=== PATIENT | female | born 1955 | race Caucasian/White ===

== ENCOUNTER 2016-12-04 17:28 | Inpatient (IN) | END 2016-12-21 18:18 | DRG 377 | DX: K62.5 Hemorrhage of anus and rectum (principal); N18.6 End stage renal disease; E13.621 Other specified diabetes mellitus with foot ulcer; I12.0 Hypertensive chronic kidney disease with stage 5 chronic kidney disease or end stage renal disease; D69.6 Thrombocytopenia, unspecified; M86.8X7 Other osteomyelitis, ankle and foot; D64.89 Other specified anemias; K31.84 Gastroparesis; E11.43 Type 2 diabetes mellitus with diabetic autonomic (poly)neuropathy; L97.519 Non-pressure chronic ulcer of other part of right foot with unspecified severity; Z99.2 Dependence on renal dialysis; I25.10 Atherosclerotic heart disease of native coronary artery without angina pectoris; Z66 Do not resuscitate; E78.5 Hyperlipidemia, unspecified; E11.621 Type 2 diabetes mellitus with foot ulcer; K57.30 Diverticulosis of large intestine without perforation or abscess without bleeding; K64.8 Other hemorrhoids; K29.00 Acute gastritis without bleeding; B96.89 Other specified bacterial agents as the cause of diseases classified elsewhere; Z16.21 Resistance to vancomycin; B37.2 Candidiasis of skin and nail; Z95.5 Presence of coronary angioplasty implant and graft; E11.610 Type 2 diabetes mellitus with diabetic neuropathic arthropathy; E11.69 Type 2 diabetes mellitus with other specified complication ==

== ENCOUNTER 2016-12-29 23:21 | Emergency (ER) | END 2016-12-30 05:20 | disposition home or self-care (01) | DX: S09.90XA Unspecified injury of head, initial encounter (principal); R51 Headache; I12.0 Hypertensive chronic kidney disease with stage 5 chronic kidney disease or end stage renal disease; N18.6 End stage renal disease; I25.10 Atherosclerotic heart disease of native coronary artery without angina pectoris; E11.9 Type 2 diabetes mellitus without complications; W18.30XA Fall on same level, unspecified, initial encounter; Y92.9 Unspecified place or not applicable; Z99.2 Dependence on renal dialysis ==

== ENCOUNTER 2017-02-12 09:32 | Day surgery (SDC) | END 2017-02-12 16:54 | disposition home or self-care (01) | DX: T82.898A Other specified complication of vascular prosthetic devices, implants and grafts, initial encounter (principal); Y84.1 Kidney dialysis as the cause of abnormal reaction of the patient, or of later complication, without mention of misadventure at the time of the procedure; Y92.89 Other specified places as the place of occurrence of the external cause | CPT/HCPCS: 36901; 71010; 80048; 82962; 85025; 85610; 85730; J1644; Q9967 ==

== ENCOUNTER 2017-08-25 11:01 | Inpatient (IN) | END 2017-09-02 18:05 | disposition home or self-care (01) | DRG 981 | DX: E87.5 Hyperkalemia (principal); N18.6 End stage renal disease; E11.22 Type 2 diabetes mellitus with diabetic chronic kidney disease; I12.0 Hypertensive chronic kidney disease with stage 5 chronic kidney disease or end stage renal disease; N17.9 Acute kidney failure, unspecified; I48.0 Paroxysmal atrial fibrillation; E11.42 Type 2 diabetes mellitus with diabetic polyneuropathy; E11.621 Type 2 diabetes mellitus with foot ulcer; E11.610 Type 2 diabetes mellitus with diabetic neuropathic arthropathy; E87.70 Fluid overload, unspecified; L85.1 Acquired keratosis [keratoderma] palmaris et plantaris; E78.5 Hyperlipidemia, unspecified; Z99.2 Dependence on renal dialysis; Z91.15 Patient's noncompliance with renal dialysis; Z79.4 Long term (current) use of insulin; Z79.84 Long term (current) use of oral hypoglycemic drugs ==

== ENCOUNTER 2017-10-06 10:05 | Day surgery (SDC) | END 2017-10-06 18:20 | disposition home or self-care (01) | DX: T82.590A Other mechanical complication of surgically created arteriovenous fistula, initial encounter (principal); N18.6 End stage renal disease; Z53.8 Procedure and treatment not carried out for other reasons ==

== ENCOUNTER 2017-10-13 09:44 | Day surgery (SDC) | payer MEDICARE, OTHER ==
[~2017-10-13] VITALS: Ht 162.6 cm; Wt 83.3 kg
[2017-10-13] VITALS (19 sets, daily range): BP systolic 131–155; BP diastolic 57–78; PULSE 72–80; RESP 10–23; Ht 162.6 cm; Wt 83.3 kg
[~2017-10-13 09:44] MED LIST: AMLO-147 PO; CINA60TA PO; DOCU-216 PO; FOLI-49 PO; FURO20TA3 PO; GABA100C14 PO; LORA0.5T PO; NEPH PO; PANT40TA3 PO; SUCR1TAB56 PO; ZOLP10TA5 PO
[2017-10-13 11:03] LABS: BASOPHIL # 0.1 10^3/ul (0.0-0.1); BASOPHILS % 1.1 % (0.0-2.0); EOSINOPHILS # 0.3 10^3/ul (0.0-0.5); EOSINOPHILS % 4.9 % (0.0-7.0); HEMATOCRIT 38.1 % (37.0-47.0); HEMOGLOBIN 12.3 g/dl (12.0-16.0); LYMPHOCYTES % 14.1 % (15.0-51.0); MEAN CORPUSCULAR HGB CONC 32.3 g/dl (32.0-37.0); MEAN CORPUSCULAR VOLUME 92.9 fl (82.0-101.0); MEAN PLATELET VOLUME 10.4 fl (7.4-10.4); MONOCYTE # 0.6 10^3/ul (0.3-0.9); MONOCYTES % 7.9 % (0.0-11.0); NEUTROPHILS % 71.6 % (39.0-77.0); PLATELET COUNT 197 10^3/UL (140-415); RED CELL DISTRIBUTION WIDTH 13.3 % (11.5-14.5)
[2017-10-13 11:26] LABS: INR 1.12; PROTIME 14.4 Sec (12.2-14.2); PT RATIO 1.1
[2017-10-13 11:30] LABS: ALBUMIN 4.1 g/dl (3.3-4.9); BILIRUBIN,INDIRECT 0.1 mg/dl (0-1.1); BILIRUBIN,TOTAL 0.1 mg/dl (0.2-1.3); TOTAL PROTEIN 8.2 g/dl (6.1-8.1)
[2017-10-13 11:36] LABS: CALCIUM 8.7 mg/dl (8.4-10.2); PARTIAL THROMBOPLASTIN TIME 35.4 Sec (25.0-35.0); POTASSIUM 4.9 mmol/L (3.5-5.1)
[2017-10-13 11:38] LABS: CREATININE 7.67 mg/dl (0.44-1.00)
[2017-10-13] MEDS ORDERED: FENTAnyl 50 MCG/ML VIAL ONE (14:27)
[2017-10-13] MEDS ORDERED: MIDAZOLAM 1 MG/ML 2 ML INJ ONE ×2 (14:27→15:06)
[2017-10-13] MEDS ORDERED: LIDOCAINE 1% (MDV) 20 ML INJ ONE ×2 (15:05→16:05)
[2017-10-13] MEDS ORDERED: IODIXANOL LOCM 100 ML BTL ONE ×2 (15:05→16:05)
--- NOTE | 2017-10-13 16:31 | HPN ---
Date/Time of Note Date/Time of Note DATE: 10/13/17 TIME: 16:31 Interval H&P Admission Note Pt. seen H&P reviewed: No system changes KOLBY BOUCHER MD Oct 13, 2017 16:31
--- NOTE | 2017-10-13 16:31 | CONS ---
Date/Time of Note Date/Time of Note DATE: 10/13/17 TIME: 16:26 Assessment/Plan Assessment/Plan Chief Complaint/Hosp Course vascular surgery H&P HISTORY OF PRESENT ILLNESS: The patient is a known patient to our vascular surgery service secondary to plethora of medical conditions and end-stage renal disease, in which she had underwent a left upper extremity fistula revision that she has had for some time now. As of recent, patient had mentioned that she has been experiencing left forearm pain and discomfort after dialysis. It has been developing recently. Otherwise, she has had this chronic left foot plantar diabetic foot ulcer and managed with local wound care with our podiatry colleagues. T At the moment, she denies shortness of breath, chest pain, nausea, vomiting, fever, or chills. She has been tolerating her dialysis sessions fine so far. REVIEW OF SYSTEMS: Fourteen point review performed and negative except was mentioned in HPI. PAST MEDICAL HISTORY: End-stage renal disease, anemia of chronic disease, diabetes, hypertension, hypercholesterolemia, diabetic gastroparesis, diabetic neuropathy, Charcot foot, bilateral lower extremity atherosclerosis, coronary artery disease, and dementia. PAST SURGICAL HISTORY: Appendectomy, cholecystectomy, bilateral lower extremity debridements and amputations, carpal tunnel surgery, left upper extremity fistula creation, and previous fistulograms. FAMILY HISTORY: Hypertension and diabetes. SOCIAL HISTORY: Denies tobacco, alcohol, or illicit drug use. PHYSICAL EXAMINATION: Alert and oriented times 3. No apparent distress. HEENT: Normocephalic, atraumatic. EOMI. PERRLA. Mucosa moist. NECK: Supple. No carotid bruit. LUNGS: Coarse breath sounds bilaterally, some crackles at the bases. HEART: S1, S2 present. No murmurs. ABDOMEN: Soft, nontender, nondistended. Bowel sounds positive. EXTREMITIES: Right lower extremity with palpable femoral pulse, nonpalpable pedal pulse. Motor sensory intact. Capillary refill 3 seconds. Left lower extremity with palpable femoral pulse, nonpalpable pedal pulse. Motor sensory intact. Capillary refill 3 to 4 seconds. Plantar ulcer with no drainage, some granulation tissue and minimal surrounding erythema. LUE: palpable brachial pulse, motor/sensory intact although weak handgrip 4/5, dry ulcer on thumb. cap refill 3-4 seconds, fistula with bruit and thrill present although weak IMPRESSION AND PLAN: End-stage renal disease: The patient has been developing some new symptoms of possible steal as she has been having some arm pain during her dialysis sessions. We will plan to obtain a LUE fistulogram for possible subclavian artery stenosis, and thoracic arch angiogram Optimize vascular status (blood pressure meds, diet, nutrition, exercise, sugar control, antiplatelets). Bilateral lower extremity atherosclerosis with left diabetic foot ulcer: The patient has been coming along well with her diabetic foot wound care. Will continue per recommendations of our podiatry colleagues. Will plan to obtain a new lower extremity arterial study to further evaluate her surveillance from that aspect as well. No further management for now. Optimize vascular status (blood pressure meds, nutrition, exercise, sugar control sugar control, antiplatelets). Discussed findings, plan, and management with the patient. She understands with the certified nuclear plant technical advisor. Thank you for allowing us to partake in the care of your patient. Please call with any questions. Problems: Consultation Date/Type/Reason Admit Date/Time Past Surgical History Past Surgical Hx: angioplasty, appendectomy, cholecystectomy, endoscopy Social History Smoking Status: Never smoker Exam/Review of Systems Vital Signs Vitals Vital Signs Date Time Temp Pulse Resp B/P Pulse Ox O2 Delivery O2 Flow Rate FiO2 10/13/17 11:08 98.1 78 18 131/60 98 Room Air Results Result Diagram: 10/13/17 1025 10/13/17 1025 Results 24 hrs Laboratory Tests Test 10/13/17 10:24 10/13/17 10:25 Bedside Glucose 176 White Blood Count 7.0 Red Blood Count 4.10 L Hemoglobin 12.3 Hematocrit 38.1 Mean Corpuscular Volume 92.9 Mean Corpuscular Hemoglobin 30.0 Mean Corpuscular Hemoglobin Concent 32.3 Red Cell Distribution Width 13.3 Platelet Count 197 Mean Platelet Volume 10.4 Neutrophils % 71.6 Lymphocytes % 14.1 L Monocytes % 7.9 Eosinophils % 4.9 Basophils % 1.1 Nucleated Red Blood Cells % 0.0 Neutrophils # 5.0 Lymphocytes # 1.0 Monocytes # 0.6 Eosinophils # 0.3 Basophils # 0.1 Nucleated Red Blood Cells # 0.0 Prothrombin Time 14.4 H Prothrombin Time Ratio 1.1 INR International Normalized Ratio 1.12 Activated Partial Thromboplast Time 35.4 H Sodium Level 142 Potassium Level 4.9 Chloride Level 97 Carbon Dioxide Level 27 Anion Gap 23 H Blood Urea Nitrogen 66 H Creatinine 7.67 H Glucose Level 196 Calcium Level 8.7 Total Bilirubin 0.1 L Direct Bilirubin 0.00 Indirect Bilirubin 0.1 Aspartate Amino Transf (AST/SGOT) 18 Alanine Aminotransferase (ALT/SGPT) 23 Alkaline Phosphatase 733 H Total Protein 8.2 H Albumin 4.1 Globulin 4.10 H Albumin/Globulin Ratio 1.00 KOLBY BOUCHER MD Oct 13, 2017 16:31
--- NOTE | 2017-10-13 16:34 | SIPON ---
Date/Time of Note Date/Time of Note DATE: 10/13/17 TIME: 16:31 Operative Report Preoperative Diagnosis ESRD, LUE ULCER Postoperative Diagnosis LEFT SUBCLAVIAN STENOSIS Operation/Procedure Performed THORACIC ARCH ANGIOGRAM, LEFT SUBCLAVIAN ARTERY ANGIOPLASTY LUE FISTULOGRAM LEFT UPPER EXTREMITY ANGIOGRAM Surgeon see signature line carpenter assistant NONE Anesthesia: moderate sedation Estimated blood loss: minimal Transfusion Required none Specimen NONE Grafts/Implants none Complications none KOLBY BOUCHER MD Oct 13, 2017 16:34
[2017-10-13] MEDS ORDERED: ONDANSETRON 4 MG INJ IV PRN (17:00)
--- NOTE | 2017-10-13 20:22 | OPR ---
DATE OF OPERATION: 10/13/2017 SURGEON: Loi Anderson MD PREOPERATIVE DIAGNOSIS: Left upper extremity ulcers. POSTOPERATIVE DIAGNOSIS: Subclavian artery stenosis. ANESTHESIA: Local with sedation. ESTIMATED BLOOD LOSS: Minimal. COMPLICATIONS: None. HEPARIN: As recorded. CONTRAST: As recorded. ACCESS: Right common femoral artery 5-Angolan sheath. Left upper extremity fistula 6-Angolan sheath. CLOSURE: Manual compression and 3-0 nylon for the left upper extremity fistula, and Angio-Seal clos ure device for the right common femoral artery. SEDATION: Under physician supervision, moderate sedation was administered intravenously under poonam nuous monitoring by the interventional team and attending physician. Pulse oximeter, heart rate, bl ood pressures were continuously monitored by the interventional surgeon. The physician's spent time was 45 minutes of [id number] sedation time with the patient. INDICATIONS: This is a 62-year-old female known to our vascular surgery service with a history of e nd-stage renal disease who has had a history of previous left upper extremity arm pain which identif ied the patient as having left subclavian artery stenosis. At that time, the patient underwent left subclavian artery stenting and now has recurrence of her left upper extremity pain and discomfort, especially during dialysis, and new small ulcers have developed on her thumb and her index finger. Upon evaluation with a duplex of the left upper extremity fistula, it was identified the patient may have some subclavian artery stenosis. Therefore, the risks, benefits and alternatives were discuss ed with the patient, risks including, but not limited to, bleeding, thrombosis, embolization, myocar dial infarction, , stroke, device malfunction, infection, nephrotoxicity, and the patient has a greed to proceed. The procedures discussed with the patient were angiogram, balloon angioplasty, st enting, and the patient has agreed to proceed. PROCEDURES: 1. Ultrasound-guided access of the left upper extremity fistula. 2. Ultrasound-guided access of the right common femoral artery. 3. Introduction of catheter into the aorta. 4. Thoracic arch angiogram. 5. Second order selection of the left brachial artery via fistula and third order selection of the descending thoracic aorta via the left subclavian artery. 6. Left upper extremity fistulogram. 7. Left upper extremity arterial angiography. 8. Left subclavian artery balloon angioplasty using a 7 mm x 40 mm balloon. FINDINGS: 1. Patent thoracic aorta ascending and descending. Significant calcification at the orifice of the left subclavian artery. 2. Bovine arch with the left common carotid and the right brachiocephalic artery coming off the yvette e branch. There is a tortuous route of the right subclavian artery and it is patent. 3. Right common carotid artery is patent. 4. Right brachiocephalic artery is patent. 5. Left common carotid artery is patent with moderate calcification at its orifice. 6. Left vertebral artery is not well visualized. 7. Right vertebral artery is not well visualized. 8. Left subclavian artery with moderate disease in its proximal aspect until it comes to the axilla ry artery. The axillary artery is patent and calcified. 9. Left brachial artery is patent and calcified. 10. Patent fistula. 11. Patent axillary vein, patent subclavian vein, patent left brachiocephalic vein, patent cephalic arch. 12. Some mild stenosis at the anastomotic site. 13. Aneurysmal fistula of the cephalic vein. 14. Patent radial artery. 15. Patent ulnar artery with some calcification. 16. Patent interosseous artery. DESCRIPTION OF PROCEDURE: The patient was brought into the angio suite and positioned in supine pos ition on the fluoroscopic table. Sedation was administered without any complications. The right gr oin was then shaved, prepped and draped in the usual standard sterile fashion. The left upper extre mity was also shaved, prepped and draped in the usual standard sterile fashion. Timeout and appropr iate sites were marked and confirmed. Local anesthesia was then infiltrated in the region of the [facility] common femoral artery. The artery was then cannulated with a micro access needle under ultrasou nd guidance, and a guidewire was advanced into the iliac artery under fluoroscopic guidance. The ne edle was then removed, and a microcatheter was placed. A Bentson wire was then passed into the infr arenal aorta under fluoroscopic guidance, followed by a 5-Angolan sheath over the wire. The sheath w as then appropriately flushed with heparinized saline solution. Using a pigtail catheter, it was th en passed into the thoracic arch and a thoracic arch angiogram was then performed. Findings are not ed above. It was identified the patient has calcification and in-stent restenosis of the left subcl sarthak artery. At this point, it was decided to cannulate the left subclavian artery in a second ord er selection. The patient was given intravenous heparin. Once adequate time had passed, we went ah ead and used a Berenstein catheter with our Bentson wire to cannulate the left subclavian artery. T he left subclavian artery was cannulated; however, the Bentson wire would not pass across the area o f significant stenosis. At this point, we tried a Glidewire and, unfortunately, it seemed that it w as a very difficult selection as it extended a bit into the aortic arch, and the decision was made t o perform a retrograde access via the left upper extremity fistula. Therefore, the pigtail catheter was removed, and access via the left upper extremity fistula was obtained. Using a micro access ne edle under ultrasound guidance, the fistula was cannulated with a micropuncture needle. The guidewi re was then advanced into the left brachial artery under fluoroscopic guidance. The needle was then removed, and a microcatheter was then placed. The Bentson wire was then passed into the left axill jennifer artery under fluoroscopic guidance, followed by a short 6-Angolan sheath over the wire. The kumar th was then appropriately flushed with heparinized saline solution. Using a Berenstein catheter, th e left subclavian artery was cannulated. At this point, with careful attention, the patient was giv en additional doses of heparin intravenously and attempts were made to select the descending thoraci c aorta. We went ahead and changed our Bentson guiding catheter to a Tillson guiding catheter and usi ng a Glidewire, we were able to cannulate, upon visualization of multiple oblique views, the descend ing thoracic aorta. Once that was obtained, we went ahead and changed our wire to a stiff Bentson w mariia, and the decision was made to perform a balloon angioplasty of the in-stent stenosis. Using a B Orthos 7 mm x 40 mm balloon, angioplasty of the left subclavian artery was performed. The patient tolerated this aspect well, and no signs of neurovascular changes were identified. Upon am ple time with our angioplasty, the balloon was taken down and removed. A thoracic arch angiogram wa s performed which identified a faster flow via the left subclavian artery and no residual stenosis. Upon completion of the angiogram, angiogram of the left upper extremity was also performed to evalu ate for further stenosis or occlusions. Findings are noted above. The patient had adequate flow fr om the left subclavian artery all the way down to the mid forearm. At this point, the patient repor ts feeling improved left upper extremity pain and feels warmer than before. The decision was made a t this point to remove all catheters and wires and to conclude the procedure. Using a 3-0 nylon sut ure, the puncture site via the left upper extremity fistula access site was closed. All catheters a nd wires were removed prior to that. At this point, using a [employer] wire, the right common femoral artery sheath was accessed and then re moved. Angio-Seal closure device was used to deploy in the right common femoral artery. The patien t tolerated the procedure well and was taken to the postanesthesia care unit in stable condition. PLAN: We will plan to have the patient follow up with us in about 2 weeks' time, at which time we w ill plan to obtain a new duplex to evaluate her left subclavian stenosis that she has had before and to evaluate her symptoms of her left upper extremity. Dictated By: LOI NOLASCO/ABHIJIT Conf#: [id number] DID#: [id number]
== END 2017-10-13 21:00 | disposition home or self-care (01) ==
LOC: SDS 09:44
PROVIDERS: ATTEND Student in an Organized Health Care Education/Training Program
DX: I77.1 Stricture of artery (principal); N18.6 End stage renal disease; E11.22 Type 2 diabetes mellitus with diabetic chronic kidney disease; I10 Essential (primary) hypertension
CPT/HCPCS: 36901; 36907; 80053; 82962; 85025; 85610; 85730; C1725; C1769; C1887; C1894; J1644; J2250; J3010; Q9967

== ENCOUNTER 2017-10-23 13:18 | Emergency (ER) | payer MEDICARE, OTHER ==
[~2017-10-23] VITALS: Ht 165.1 cm; Wt 81.2 kg
[2017-10-23 13:23] VITALS: Ht 165.1 cm; Wt 81.2 kg
--- NOTE | 2017-10-23 13:41 | ERD ---
ER Documentation Chief Complaint Chief Complaint LUE pain x 1 week after surgery, denies fever HPI The patient is a 62-year-old female, presenting to the ER because of left upper extremity intermittent pain for 1 week. She had a lesion of the left upper extremity AV fistula last week. She has chronic ulcers on the left hand for many months, denies any trauma, fever, chills, neck pain, chest pain, abdominal pain, vomiting. She had dialysis this morning. X Past medical history: Hypertension, chronic kidney disease on hemodialysis, diabetes mellitus, hypertension, diabetic neuropathy Surgical history: Appendectomy ROS All systems reviewed and are negative except as per history of present illness. Medications Home Meds Active Scripts Hydrocodone/Acetaminophen ([place] 5-325 Tablet) 1 Each Tablet, 1 TAB PO Q6H Y for PAIN, #7 TAB Prov:FELIX FAROOQ MD 10/23/17 Bacitracin* (Bacitracin Oint (UD)*) 1 Applic Oint, 1 APPLIC TOP BID, #30 PKT APPLY TO Prov:FELIX FAROOQ MD 10/23/17 Clindamycin Hcl* (Clindamycin Hcl*) 300 Mg Capsule, 300 MG PO QID for 10 Days, CAP Prov:FELIX FAROOQ MD 10/23/17 Docusate Sodium (Dok) 100 Mg Capsule, 100 MG PO Q12H Y for CONSTIPATION for 30 Days, CAP Prov:DAI LEONARD 09/02/17 Reported Medications Zolpidem Tartrate* (Zolpidem Tartrate*) 10 Mg Tablet, 10 MG PO QHS Y for INSOMNIA, #30 TAB 10/06/17 Folic Acid* (Folic Acid*) 1 Mg Tablet, 1 MG PO DAILY, TAB 10/06/17 Amlodipine Besylate* (Amlodipine Besylate*) 10 Mg Tablet, 10 MG PO DAILY, #30 TAB 10/06/17 Cinacalcet* (Sensipar*) 60 Mg Tablet, 60 MG PO DAILY, TAB 10/06/17 Gabapentin* (Gabapentin*) 100 Mg Capsule, 100 MG PO TID, #90 CAP 10/06/17 Lorazepam* (Lorazepam*) 0.5 Mg Tablet, 0.5 MG PO BID Y for ANXIETY, TAB 10/06/17 Multivit/Ca Carb/B Cmplx/Fa* (Suzie-Paula*) 1 Tab Tab, 1 TAB PO DAILY, TAB 10/06/17 Sucralfate* (Carafate*) 1 Gm Tab, 1 GM PO QID, TAB 10/06/17 Furosemide* (Furosemide*) 20 Mg Tablet, 20 MG PO DAILY, #60 TAB 02/12/17 Pantoprazole* (Protonix*) 40 Mg Tablet.dr, 40 MG PO DAILY, TAB 12/04/16 Allergies Allergies: Coded Allergies: amoxicillin (Verified Allergy, Unknown, rash, swelling, 10/13/17) citalopram (Verified Allergy, Unknown, RASH, SKIN REDNESS, 10/13/17) PMhx/Soc History of Surgery: Yes (APPENDECTOMY, CTR R HAND, KIDNEY STONE, R FOOT I AND D , R BIG TOE AMPUTATIO) Anesthesia Reaction: No Hx Neurological Disorder: No Hx Respiratory Disorders: No Hx Cardiac Disorders: Yes (HTN,HLP) Hx Psychiatric Problems: No Hx Miscellaneous Medical Probl: Yes (RIGHT FOOT ULCER (PICS IN THE CHART)) Hx Alcohol Use: No Hx Substance Use: No Hx Tobacco Use: No Physical Exam Vitals Vital Signs Date Time Temp Pulse Resp B/P Pulse Ox O2 Delivery O2 Flow Rate FiO2 10/23/17 17:10 73 20 161/62 100 Room Air 10/23/17 14:54 97.4 68 16 118/56 99 Room Air 10/23/17 13:23 98.7 77 19 124/56 98 Physical Exam Const: No acute distress. Head: Atraumatic. Eyes: Normal Conjunctiva. ENT: Normal External Ears, Nose and Mouth. Neck: Full range of motion. No meningismus. Resp: Clear to auscultation bilaterally. Cardio: Regular rate and rhythm. Abd: Soft, non distended, normal bowel sounds, non tender. Skin: No petechiae or rashes. Back: No midline or flank tenderness. Ext: There are chronic ulceration at the left wrist and second finger , thumb, and ring finger. There are no active bleeding Neur: Awake and alert. No focal deficit Psych: Normal Mood and Affect. Result Diagram: 10/23/17 1431 10/23/17 1431 Results 24 hrs Laboratory Tests Test 10/23/17 14:31 White Blood Count 6.610^3/ul Red Blood Count 3.6410^6/ul Hemoglobin 11.1g/dl Hematocrit 34.1% Mean Corpuscular Volume 93.7fl Mean Corpuscular Hemoglobin 30.5pg Mean Corpuscular Hemoglobin Concent 32.6g/dl Red Cell Distribution Width 13.4% Platelet Count 53764^3/UL Mean Platelet Volume 10.0fl Neutrophils % 69.2% Lymphocytes % 14.6% Monocytes % 9.5% Eosinophils % 5.0% Basophils % 1.2% Nucleated Red Blood Cells % 0.0/100WBC Neutrophils # 4.510^3/ul Lymphocytes # 1.010^3/ul Monocytes # 0.610^3/ul Eosinophils # 0.310^3/ul Basophils # 0.110^3/ul Nucleated Red Blood Cells # 0.010^3/ul Prothrombin Time 13.6Sec Prothrombin Time Ratio 1.1 INR International Normalized Ratio 1.04 Activated Partial Thromboplast Time 30.4Sec Sodium Level 136mmol/L Potassium Level 4.3mmol/L Chloride Level 95mmol/L Carbon Dioxide Level 25mmol/L Anion Gap 20 Blood Urea Nitrogen 29mg/dl Creatinine 4.70mg/dl Glucose Level 224mg/dl Calcium Level 9.2mg/dl Current Medications Medications (Trade) Dose Ordered Sig/Caitlyn Route PRN Reason Start Time Stop Time Status Last Admin Dose Admin Acetaminophen/ Hydrocodone Bitart ([place] (5/325)) 1 tab ONCE ONCE PO 10/23/17 14:30 10/23/17 14:31 DC 10/23/17 14:41 Ondansetron HCl (Zofran Odt) 4 mg ONCE STAT ODT 10/23/17 14:04 10/23/17 14:09 DC 10/23/17 14:41 Procedures/[facility] MEDICAL MAKING DECISION: The patient is a 72-year-old female, presenting with chronic left hand ulceration, is stable for outpatient follow-up. She was treated with [place] 5 mg p.o. for pain and Zofran ODT for nausea with good response. The differential diagnoses considered include but are not limited to cellulitis , abscess, DVT, lymophedema Departure Diagnosis: Primary Impression: Skin ulcer Additional Impression: Anemia Condition: Good Comments She was discharged with clindamycin, [place] I discussed the findings with the patient. I advised the patient to follow-up with the primary physician in about 1-2 days, sooner if needed and return if any concern. Disclaimer: Inadvertent spelling and grammatical errors are likely due to EHR/ dictation software use and do not reflect on the overall quality of patient care. Also, please note that the electronic time recorded on this note does not necessarily reflect the actual time of the patient encounter. FELIX FAROOQ MD Oct 23, 2017 13:41
[2017-10-23] MEDS ORDERED: ONDANSETRON (ODT) 4 MG TAB ODT STA (14:04)
[2017-10-23] MEDS ORDERED: HYDROCODONE/APAP (5/325) TAB PO ONE (14:30)
[2017-10-23 14:36] LABS: BASOPHIL # 0.1 10^3/ul (0.0-0.1); BASOPHILS % 1.2 % (0.0-2.0); EOSINOPHILS # 0.3 10^3/ul (0.0-0.5); HEMATOCRIT 34.1 % (37.0-47.0); HEMOGLOBIN 11.1 g/dl (12.0-16.0); LYMPHOCYTES % 14.6 % (15.0-51.0); MEAN CORPUSCULAR HEMOGLOBIN 30.5 pg (29.0-33.0); MEAN CORPUSCULAR HGB CONC 32.6 g/dl (32.0-37.0); MEAN CORPUSCULAR VOLUME 93.7 fl (82.0-101.0); MONOCYTE # 0.6 10^3/ul (0.3-0.9); MONOCYTES % 9.5 % (0.0-11.0); NEUTROPHIL # 4.5 10^3/ul (1.6-7.5); NEUTROPHILS % 69.2 % (39.0-77.0); PLATELET COUNT 220 10^3/UL (140-415); RED BLOOD COUNT 3.64 10^6/ul (4.20-5.40); RED CELL DISTRIBUTION WIDTH 13.4 % (11.5-14.5); WHITE BLOOD COUNT 6.6 10^3/ul (4.8-10.8)
[2017-10-23 14:52] LABS: PARTIAL THROMBOPLASTIN TIME 30.4 Sec (25.0-35.0)
[2017-10-23 14:53] LABS: CALCIUM 9.2 mg/dl (8.4-10.2); CREATININE 4.7 mg/dl (0.44-1.00); POTASSIUM 4.3 mmol/L (3.5-5.1)
[2017-10-23 14:54] VITALS: TEMP 97.4
[2017-10-23 14:56] LABS: INR 1.04; PROTIME 13.6 Sec (12.2-14.2); PT RATIO 1.1
--- NOTE | 2017-10-23 15:59 | RADRPT ---
PROCEDURE: US upper extremity Venous. CLINICAL INDICATION: Left arm edema TECHNIQUE: Multiple sonographic images of the left upper extremity venous system was obtained util izing grayscale, color-flow, compressive sonography and doppler imaging with augmentation. The imag es were reviewed on a PACS workstation. COMPARISON: None. FINDINGS: There is normal compressibility and flow within the left internal jugular vein, subclavian vein, axi llary vein, brachial, basilic, cephalic, radial and ulnar veins. RPTAT: AA IMPRESSION: No sonographic evidence for venous thrombosis. Physician Moni Date Time Electronically viewed and signed by Physician Moni on 10/23/2017 15:59 GA/
--- NOTE | 2017-10-23 16:24 | RADRPT ---
PROCEDURE: US left upper extremity AV fistula/graft CLINICAL INDICATION: Arm and hand pain. TECHNIQUE: Multiple sonographic images of the left upper extremity arteries, veins and hemodialysi s access was obtained utilizing grayscale, color-flow, compressive sonography and doppler imaging. The images were reviewed on a PACS workstation. COMPARISON: 08/27/2017. FINDINGS: There is a left upper extremity AV fistula which is widely patent. The arteriovenous anastomosis carla ears patent and measures approximately 14 mm in diameter. Peak velocities within the fistula are as follows: Anastomosis: 183 cm/sec Proximal 279 cm/sec Mid 197 cm/sec Distal 174 cm/sec IMPRESSION: Widely patent left upper extremity AV fistula. RPTAT: EE Margaret Lucio Physician Date Time Electronically viewed and signed by Margaret Lucio Physician on 10/23/2017 16:24 PH/
[2017-10-23] MEDS ORDERED: CLIN-73 PO (16:41)
[2017-10-23] MEDS ORDERED: BACITUD TOP (16:44)
[2017-10-23] MEDS ORDERED: HYDR-906 PO (17:01)
[2017-10-23 17:10] VITALS: BP 161/62; PULSE 73; RESP 20
== END 2017-10-23 17:00 | disposition home or self-care (01) ==
LOC: E/R 13:18
DX: L98.499 Non-pressure chronic ulcer of skin of other sites with unspecified severity (principal); I12.9 Hypertensive chronic kidney disease with stage 1 through stage 4 chronic kidney disease, or unspecified chronic kidney disease; N18.9 Chronic kidney disease, unspecified; E11.22 Type 2 diabetes mellitus with diabetic chronic kidney disease; D64.9 Anemia, unspecified
CPT/HCPCS: 80048; 85025; 85610; 85730; 93931; 93971; 99283

== ENCOUNTER → 2018-01-12 | Outpatient (CLI) | END | disposition home or self-care (01) ==

== ENCOUNTER 2018-02-11 07:31 | Day surgery (SDC) | END 2018-02-11 14:00 | disposition home or self-care (01) ==

== ENCOUNTER 2018-04-11 14:53 | Emergency (ER) | END 2018-04-11 18:22 | disposition home or self-care (01) ==

== ENCOUNTER 2018-06-07 22:54 | Inpatient (IN) | END 2018-06-26 13:45 | disposition home or self-care (01) | DRG 193 ==

== ENCOUNTER 2018-06-28 12:01 | Emergency (ER) | END 2018-06-28 15:32 | disposition home or self-care (01) ==

== ENCOUNTER 2018-07-14 04:49 | Emergency (ER) | END 2018-07-14 11:50 | disposition home or self-care (01) ==

== ENCOUNTER 2018-08-02 12:59 | Inpatient (IN) | END 2018-08-04 19:48 | DRG 313 ==

== ENCOUNTER 2018-10-19 12:12 | Emergency (ER) | END 2018-10-19 16:22 | disposition home or self-care (01) ==

== ENCOUNTER 2018-11-17 09:10 | Day surgery (SDC) | END 2018-11-17 16:29 ==

== ENCOUNTER 2019-01-23 05:42 | Inpatient (IN) | payer MEDICARE, OTHER ==
[~2019-01-23] VITALS: Ht 165.1 cm; Wt 89.2 kg
[2019-01-23] VITALS (9 sets, daily range): BP systolic 83–105; BP diastolic 45–56; PULSE 78–91; RESP 17–20; Ht 165.1 cm; Wt 89.2 kg
[~2019-01-23 05:42] MED LIST changes: +ACET-141 PO; -AMLO-147 PO; +APIX2.5T PO; +ATOR20TA38 PO; +BENZ-5 PO; +BISA-57 PO; +BISA10SU18 RC; +CARAS PO; -CINA60TA PO; +DOCU-144 PO; -DOCU-216 PO; +FAMO20TA18 PO; -GABA100C14 PO; +GABA300C16 PO; +GLUC1KIT2 IJ; +HYDR-3980 PO; +HYDR-4011 PO; +HYDR4TAB51 PO; +IPRA3AMP29 INHALATION; +LOPE-123 PO; -LORA0.5T PO; +LOSA25TA12 PO; +LUBI24CA7 PO; +METO-429 PO; +NOVO3I SC; +ONDA4TAB95 PO; -PANT40TA3 PO; +POLY17PO6 PO; -SUCR1TAB56 PO; +SVL800C PO; +TEMA30CA6 PO; +TRAM50TA PO; -ZOLP10TA5 PO
[2019-01-23] MEDS ORDERED: SOD CHLORIDE 0.9% 500 ML IV STA (06:12)
[2019-01-23] MEDS ORDERED: ONDANSETRON 4 MG INJ IV PRN ×2 (07:30→12:30)
[2019-01-23] MEDS ORDERED: ACETAMINOPHEN 325 MG TAB PO PRN ×2 (07:30→12:30)
--- NOTE | 2019-01-23 07:30 | ERD ---
ER Documentation Chief Complaint Chief Complaint CELIA PURCELL,from dialysis center,dialysis cancelled today d/t hypotension HPI Patient is a 63-year-old female with hypertension, diabetes, and dialysis who presents with a fall. She said that she fell in the bathroom yesterday and has left-sided thigh pain. She did not get dialysis today because her blood pressure was less than 90 systolic. The patient has had no treatment as of yet. The patient was brought in by ambulance. Upon review of old medical records the patient has multiple visits to the ER with admissions. The patient's primary doctor is Dr. Rodriguez. ROS All systems reviewed and are negative except as per history of present illness. Medications Home Meds Active Scripts Hydrocodone/Acetaminophen ([place] 10-325 Tablet) 1 Each Tablet, 1 TAB PO Q6H PRN for PAIN, #7 TAB Prov:LINCOLN LEW MD 10/19/18 Reported Medications Insulin Aspart* (Novolog Insulin Pen*) 100 Unit/Ml Soln, 0-5 SC .SLIDING SCALE AC, EA 11/17/18 Sucralfate* (Carafate*) 1 Gm/10 Ml Susp, 1 GM PO TID, EA 11/17/18 Hydromorphone Hcl* (Dilaudid*) 4 Mg Tablet, 4 MG PO Q6H PRN for PAIN, TAB 11/17/18 Hydrocodone/Acetaminophen ([place] 5-325 Tablet) 1 Each Tablet, 1 EACH PO Q6 PRN for WHEEZING AND SOB, TAB 11/17/18 Ondansetron Hcl* (Ondansetron Hcl*) 4 Mg Tablet, 4 MG PO Q6H PRN for NAUSEA AND/OR VOMITING, TAB 11/17/18 Sevelamer Hcl* (Renagel*) 800 Mg Tablet, 2400 MG PO WITH MEALS, TAB 11/17/18 Gabapentin* (Gabapentin*) 300 Mg Capsule, 300 MG PO TID, #90 CAP 11/17/18 Glucagon,Human Recombinant (Glucagen) 1 Mg Vial, 1 MG IJ DAILY for LOW GLUCOSE, VIAL 11/17/18 Loperamide Hcl* (Loperamide Hcl*) 2 Mg Cap, 2 MG PO DAILY PRN for CONSTIPATION, CAP 11/17/18 Ipratropium-Albuterol (Ipratropium-Albuterol) 0.5-3 Mg/3 Ml Ampul.neb, 3 ML INHALATION Q4 PRN for WHEEZING AND SOB, #30 VIAL 11/17/18 Acetaminophen* (Acetaminophen*) 500 MG Extra Strength Tablet, 500 MG PO Q4H PRN for MILD PAIN LEVEL 1-3, TAB 11/17/18 Lubiprostone* (Amitiza*) 24 Mcg Capsule, 24 MCG PO BID, #60 CAP 11/17/18 Famotidine* (Famotidine*) 20 Mg Tablet, 20 MG PO BID, #60 TAB 11/17/18 Docusate Sodium* (Colace*) 100 Mg Capsule, 100 MG PO BID PRN for CONSTIPATION, #60 CAP 11/17/18 Temazepam* (Restoril*) 30 Mg Capsule, 30 MG PO HS PRN for INSOMNIA, CAP 11/17/18 Benzonatate* (Benzonatate*) 100 Mg Capsule, 100 MG PO DAILY PRN for COUGH, CAP 11/17/18 Metoprolol Tartrate* (Lopressor*) 50 Mg Tab, 50 MG PO BID, #60 TAB 11/17/18 Atorvastatin Calcium* (Atorvastatin Calcium*) 20 Mg Tablet, 20 MG PO QHS, #30 TAB 11/17/18 Losartan Potassium* (Losartan Potassium*) 25 Mg Tablet, 25 MG PO DAILY, TAB 11/17/18 Multivit/Ca Carb/B Cmplx/Fa* (Suzie-Paula*) 1 Tab Tab, 1 TAB PO DAILY, TAB 11/17/18 Apixaban* (Eliquis*) 2.5 Mg Tablet, 2.5 MG PO DAILY, TAB 11/17/18 Folic Acid* (Folic Acid*) 1 Mg Tablet, 1 MG PO DAILY, TAB 07/14/18 Bisacodyl* (Dulcolax*) 5 Mg Tablet.dr, 5 MG PO BID PRN for CONSTIPATION, TAB 07/14/18 Polyethylene Glycol* (Miralax*) 17 Gm Powd.pack, 17 GM PO DAILY PRN for CONSTIPATION, #30 PACKET 07/14/18 Bisacodyl (Laxative Suppository) 10 Mg Supp.rect, 10 MG RC DAILY for SEVERE CONSTIPATION, SUPP.RECT 07/14/18 Tramadol Hcl* (Ultram*) 50 Mg Tablet, 50 MG PO TID PRN for PAIN, TAB 06/07/18 Furosemide* (Furosemide*) 20 Mg Tablet, 20 MG PO DAILY, #60 TAB 06/07/18 Allergies Allergies: Coded Allergies: No Known Allergies (Verified Allergy, Unknown, 11/25/18) PMhx/Soc History of Surgery: Yes (rt great toe amputation and appendectomy) Anesthesia Reaction: No Hx Neurological Disorder: No Hx Respiratory Disorders: No Hx Cardiac Disorders: Yes (HTN) Hx Psychiatric Problems: No Hx Miscellaneous Medical Probl: No Hx Alcohol Use: No Hx Substance Use: No Hx Tobacco Use: No Smoking Status: Never smoker FmHx Family History: diabetes Physical Exam Vitals Vital Signs Date Temp Pulse Resp B/P (MAP) Pulse Ox O2 O2 Flow FiO2 Time Delivery Rate 01/23/19 78 15 97/62 (74) 99 Nasal 07:00 Cannula 01/23/19 81 19 83/60 (68) 98 Nasal 06:25 Cannula 01/23/19 97.0 80 18 83/33 (50) 100 05:51 Physical Exam Const: Moderate distress secondary to pain Head: Atraumatic Eyes: Normal Conjunctiva ENT: Normal External Ears, Nose and Mouth. Neck: Full range of motion. No meningismus. Resp: Clear to auscultation bilaterally Cardio: Regular rate and rhythm, no murmurs Abd: Soft, non tender, non distended. Normal bowel sounds Skin: No petechiae or rashes Back: No midline or flank tenderness Ext: Left leg pain with palpation without deformity noted Neur: Awake and alert Psych: Normal Mood and Affect Result Diagram: 01/23/19 0602 01/23/19 0602 Results 24 hrs Laboratory Tests Test 01/23/19 06:02 White Blood Count 5.9 10^3/ul Red Blood Count 4.30 10^6/ul Hemoglobin 13.6 g/dl Hematocrit 40.8 % Mean Corpuscular Volume 94.9 fl Mean Corpuscular Hemoglobin 31.6 pg Mean Corpuscular Hemoglobin Concent 33.3 g/dl Red Cell Distribution Width 17.2 % Platelet Count 167 10^3/UL Mean Platelet Volume 10.4 fl Immature Granulocytes % 0.500 % Neutrophils % 75.6 % Lymphocytes % 11.1 % Monocytes % 8.5 % Eosinophils % 2.9 % Basophils % 1.4 % Nucleated Red Blood Cells % 0.0 /100WBC Immature Granulocytes # 0.030 10^3/ul Neutrophils # 4.4 10^3/ul Lymphocytes # 0.7 10^3/ul Monocytes # 0.5 10^3/ul Eosinophils # 0.2 10^3/ul Basophils # 0.1 10^3/ul Nucleated Red Blood Cells # 0.0 10^3/ul Prothrombin Time 17.2 Sec Prothrombin Time Ratio 1.3 INR International Normalized Ratio 1.39 Sodium Level 134 mmol/L Potassium Level 4.6 mmol/L Chloride Level 95 mmol/L Carbon Dioxide Level 19 mmol/L Anion Gap 20 Blood Urea Nitrogen 42 mg/dl Creatinine 5.06 mg/dl Est Glomerular Filtrat Rate mL/min 9 mL/min Glucose Level 69 mg/dl Calcium Level 8.5 mg/dl Troponin I < 0.012 ng/ml B-Type Natriuretic Peptide 15264 PG/ML Current Medications Medications Dose Sig/Caitlyn Start Time Status Last (Trade) Ordered Route PRN Stop Time Admin Dose Reason Admin Sodium 500 ml @ Q1H STAT 01/23/19 DC 01/23/19 Chloride 500 mls/hr IV 06:12 06:16 01/23/19 07:11 Ondansetron 4 mg ER BRIDGE 01/23/19 HCl (Zofran PRN IV 07:30 Inj) NAUSEA/VOMITI 01/24/19 07:29 NG 650 mg ER BRIDGE 01/23/19 Acetaminophen PRN PO 07:30 (Tylenol .MILD PAIN 01/24/19 07:29 Tab) 1-3 OR TEMP Procedures/MDM Chest x-ray read by radiology. X-ray left femur negative for fracture per radiology. EKG read by me: Rate/Rhythm: Atrial fibrillation at a rate of 74 Intervals: Normal Impression: A. fib without ischemia Patient is a 63-year-old female with multiple comorbidities who presents with a fall and hypertension. The patient fell in the bathroom yesterday and has left leg pain. X-ray was negative for fracture or dislocation. The patient missed dialysis today because of hypotension and was given 500 normal saline bolus in the emergency department. Her blood pressure has improved into the 90s systolic. She will need dialysis. Her potassium today is 4.6. She will need inpatient admission as she was hypotensive and missed dialysis. She will be admitted to the care of Dr. Casas to a telemetry bed. Her prognosis is poor given age and comorbidities. Departure Diagnosis: Primary Impression: Fall Encounter type: initial encounter Qualified Codes: W19.XXXA - Unspecified fall, initial encounter Additional Impression: Hypotension Hypotension type: unspecified hypotension type Qualified Codes: I95.9 - Hypotension, unspecified Condition: ESDRAS Berger MD Jan 23, 2019 07:30
--- NOTE | 2019-01-23 12:22 | QN ---
Documentation Comment seen and examined JACOB GONZALEZ MD Jan 23, 2019 12:22
[2019-01-23] MEDS ORDERED: NACL 0.9% 3 ML SYG IV SCH (12:30)
[2019-01-23] MEDS ORDERED: VANCOMYCIN IV PER PHARMACY XX SCH (12:30)
[2019-01-23] MEDS ORDERED: DOCUSATE SODIUM 100 MG CAP PO PRN ×2 (12:30→14:00)
[2019-01-23] MEDS ORDERED: VANCOMYCIN HCL 1.5 GM in SOD CHLORIDE 0.9% 250 ML IVPB SCH (14:00)
[2019-01-23] MEDS ORDERED: BENZONATATE 100 MG CAP PO PRN (14:00)
[2019-01-23] MEDS ORDERED: LOPERAMIDE 2 MG CAP PO PRN (14:00)
[2019-01-23] MEDS ORDERED: ALBUTEROL/IPRATROPIUM (NEB) 3 ML AMP NEB PRN (14:00)
[2019-01-23] MEDS ORDERED: BISACODYL (EC) 5 MG TAB PO PRN (14:00)
[2019-01-23] MEDS: morphine 2 MG INJ IV PRN ×2 (14:06→22:43)
[2019-01-23] MEDS: CEFEPIME 1GM/50 ML (PMX) 50 ML IVPB SCH (14:17)
[2019-01-23] MEDS ORDERED: GLUCOSE GEL 15 GRAM TUBE BUCCAL PRN (14:30)
[2019-01-23] MEDS ORDERED: GLUCOSE GEL 15 GRAM TUBE PO PRN ×2 (14:30)
[2019-01-23] MEDS ORDERED: DEXTROSE 50% 50 ML SYRINGE IV PRN ×2 (14:30)
[2019-01-23] MEDS ORDERED: GLUCAGON 1 MG INJ IM PRN (14:30)
--- NOTE | 2019-01-23 16:37 | HP ---
DATE OF ADMISSION: 01/23/2019 REASON FOR ADMISSION: Transfer from dialysis center due to hypotension. HISTORY OF PRESENTING ILLNESS: This is a 63-year-old female with a past medical history of diabetes, hypertension, hypercholesterolemia, end-stage renal disease on hemodialysis for the last 11 years, A Fib, right foot ulcers, history of peripheral vascular disease, who is a patient from [facility], was sent into the dialysis center today for her regular hemodialysis. The patient gets hemodialysis Wednesday, Wednesday, Wednesday. Last hemodialysis session was on Wednesday where they removed 3.5 liters. According to the patient, she has been feeling dizzy for the last 3 to 4 days. She went for a regula r dialysis session; however she was noted to be hypotensive and then was sent into the ER for further evaluation. According to the patient, she had not been taking any blood pressure medications at the intermediate. The patient also apparently fell at the intermediate yesterday when she was trying to get a part of the chair, trying to go to the bathroom and had sustained injury on the right arm and the right hip. The patient is complaining of generalized pain. The patient was also having some sub jective fevers at home and some diarrhea. On arrival to ED, vital signs showed a blood pressure of 8 3/33. Labs showed white count of 5.9, hemoglobin of 13.6, platelet count 167, BUN of 42, creatinine 5.06. She had a chest x-ray that showed moderate cardiomegaly. Femur x-rays on the left showed exte nsive vascular calcification, mild to moderate degenerative changes of the left hip and knee. The pa tient was given some NS bolus and was admitted for further management. PAST MEDICAL HISTORY: 1. Diabetes for many years. 2. Hypertension. 3. End-stage renal disease on Wednesday, Wednesday, Wednesday. 4. History of pneumonia. 5. History of AFib. 6. History of cholecystectomy. 7. History of diabetic foot surgery. 8. History of anxiety. 9. Depression 10. History of multiple AV graft revision and thrombectomy. 11. History of gastritis. 12. History of gastroparesis. 13. History of peripheral vascular disease. ALLERGIES: 1. AMOXICILLIN. 2. CELEXA. SOCIAL HISTORY: Denies any history of smoking, alcohol or any drug use. Currently lives in [facility]. The patient has a daughter. FAMILY HISTORY: Significant for extensive disease of diabetes in the family. MEDICATIONS: At [facility], the patient is on: 1. Pepcid 20. 2. Folic acid 1000 everyday. 3. Suzie-Paula. 4. Lasix 20. 5. Zinc sulfate. 6. Eliquis 2.5 everyday. 7. Losartan 25. 8. Vitamin D3. 9. Lipitor 20. 10. Metoprolol 50 b.i.d. with meals. 11. Restoril 30 for insomnia. 12. Acetaminophen. 13. Albuterol as needed. 14. Loperamide. 15. Gabapentin 300 t.i.d. 16. Colace. 17. Renagel 2400 t.i.d. 18. Tramadol. 19. . 20. NovoLog sliding scale. 21. Pro-Stat. 22. Dilaudid 4 mg q.8 p.r.n. pain. 23. [place]. 24. Sucralfate. REVIEW OF SYSTEMS: The patient complains of pain generalized. In body, the patient has multiple ski n ulcers especially on the right foot, left foot and left 3rd finger. The patient also has multiple bruises secondary to the fall. The patient denies any headache. The patient noticed chest pain toda y, also complained of dizziness for the last 3 days, had some diarrhea yesterday. PHYSICAL EXAMINATION: VITAL SIGNS: Initially blood pressure 83/33, heart rate was 78, afebrile. GENERAL: The patient is awake, alert, oriented, appears to be in moderate distress secondary to pain . HEENT: Pupils are equal, round, reactive to light. NECK: Supple. No JVD. HEART: Regular rate and rhythm. LUNGS: Clear to auscultate bilaterally. ABDOMEN: Soft, nontender, nondistended. The patient has multiple bruises present. EXTREMITIES: Right lower extremity, the patient is status post amputation of the great toe. The pat ient has blackish discoloration at the sole of the foot which is visible. The patient also has a 3 x 4 cm ulcer with some discharge. On the left foot, the patient also has an ulcer noted near the ankl e. The patient also has the left 3rd finger with superficial ulcer. The patient has multiple ulcera tions. Feeble distal pulses. SKIN: The patient has a right PermCath in place. LABORATORY DATA: Sodium 134, potassium 4.6, chloride 95, bicarbonate 19, BUN of 42, creatinine 5.06. White count of 5.9, hemoglobin 13.6, platelet count 167. INR 1.39. DIAGNOSTIC DATA: Chest x-ray is negative. Femur x-ray on the left is negative. ASSESSMENT AND PLAN: This is a 63-year-old female presenting with: 1. Dizziness and likely secondary to hypotension which could be secondary to probably sepsis from mu ltiple ulcers. The patient was also on blood pressure medication plus the patient was also receiving hemodialysis. 2. Multiple diabetic foot ulcers, especially on the right lower extremity, left lower extremity and also on the 3rd index finger on the left hand. 3. Status post fall with generalized pain likely secondary to hypotension, dizziness. 4. History of atrial fibrillation. 5. Hypertension, however, currently hypotensive. 6. Diabetes with complications of diabetic nephropathy, neuropathy and retinopathy. 7. End-stage renal disease on hemodialysis Wednesday, Wednesday, Wednesday. 8. Hypercholesterolemia. 9. History of peripheral vascular disease. 10. History of depression, anxiety. 11. History of gastritis. 12. History of gastroparesis. 13. History of multiple AV graft revision, thrombectomy and status post banding of the left upper ex tremity fistula. PLAN: At this period of time, the patient is being admitted to telemetry. Dialysis will be on hold since the patient is hypotensive. The patient will be on broad IV antibiotics, vancomycin and cefepi me. We will also get arterial Dopplers of the lower extremities. Dr. Lemus has been informed. Podi atry consult has been informed. We will also call the ID consultation. We will also call the wound care consult. The patient will likely need surgical debridement. The patient will be on strict diab etic control. Rest of the treatment will depend on the patient's hospitalization course. Dictated By: JACOB LARA/ABHIJIT Conf#: [id number] DID#: [id number] CC: ALONZO KNOWLES MD;*EndCC*
[2019-01-23] MEDS: INSULIN ASPART [NOVOLOG] 3 ML PEN SC SCH ×2 (17:18→21:00)
[2019-01-23] MEDS: SEVELAMER CARBONATE 800 MG TABLET PO SCH (17:50)
[2019-01-23] MEDS: HYDROCODONE/APAP (5/325) TAB PO PRN (17:53)
--- NOTE | 2019-01-23 19:35 | CONS ---
DATE OF ADMISSION: 01/23/2019 DATE OF CONSULTATION: 01/23/2019 TYPE OF CONSULTATION: Infectious disease. REASON FOR CONSULTATION: Antibiotic management. HISTORY OF PRESENT ILLNESS: Mariza Sprague is an unfortunate 63-year-old female who was brought in by rescue ambulance from dialysis center because of hypotension. Her past problems include: 1. Hypertension. 2. Adult-onset diabetes mellitus. 3. End-stage renal disease on hemodialysis. She presents with a fall. She said that she fell in the bathroom yesterday and has left-sided thigh pain. She did not get dialysis today because her blood pressure was less than 90 systolic. PAST SURGICAL HISTORY: Status post right great toe amputation, status post appendectomy. FAMILY HISTORY: Noncontributory except for diabetes. SOCIAL HISTORY: She does not smoke, drink or abuse drugs. ALLERGIES: NONE TO PENICILLIN, SULFA OR FOODS. MEDICATIONS: Per chart. REVIEW OF SYSTEMS: Positive for hypertension in addition to as noted diabetes and end-stage renal fa ilure on hemodialysis. PHYSICAL EXAMINATION: GENERAL: She is in some distress secondary to pain. SKIN: Without generalized rash. She has multiple ulcerations on her feet and on her extremities. S he has a left foot 3rd toe ulceration, 0.5 x 0.5. She has a left lower extremity wound. She has alessandro e stage III crack in her heel, 4 x 2 cm. She has a left plantar lesion or ulceration. She has a lef t lower extremity lateral ulceration and she has an ulceration at the area where her amputation was i n the right toe. HEENT: Within normal limits. NECK: Supple. LYMPH NODES: None palpable. CHEST: Decreased breath sounds at the bases. HEART: Without murmur or gallop. ABDOMEN: Soft, nontender, without organosplenomegaly or masses. EXTREMITIES: Without cyanosis, clubbing or edema. RECTAL AND GENITAL: Deferred. NEUROLOGIC: Awake and alert. ANCILLARY LABORATORY DATA: Her white count 5.9, H and H of 13.6 and 40.8, platelet count of 167,000. BUN and creatinine is 42/5.06, glucose of 69. DIAGNOSTIC DATA: She had a femoral x-ray which showed mild to moderate degenerative changes of the l eft hip and left knee, extensive vascular calcifications, no acute fractures noted. Chest x-ray: Mo derate cardiomegaly. Femoral x-ray: Limited evaluation of the right hip joint secondary to overlyin g soft tissues. No large displaced fracture. IMPRESSION AND PLAN: The patient was seen by Dr. Porter. She was started on vancomycin and cefepime . We will await culture reports, but awaiting wound care. It is possible that we can treat most of these wounds with local care. I will dictate my findings to Dr. Porter. Dictated By: ROGER BARRERA MD, JD/NTS Conf#: [id number] DID#: [id number] CC: ALONZO KNOWLES MD;*EndCC*
[2019-01-23] MEDS: SUCRALFATE (100 MG/ML) 10ML CUP PO SCH (21:08)
[2019-01-23] MEDS: ATORVASTATIN 20 MG TAB PO SCH (21:08)
[2019-01-23] MEDS: ZOLPIDEM 5 MG TAB PO PRN (22:31)
[2019-01-24] VITALS (28 sets, daily range): BP systolic 90–138; BP diastolic 46–99; PULSE 70–105; RESP 17–20
[2019-01-24] MEDS: ACCU-CHEK XX SCH (02:26)
[2019-01-24] MEDS: PANTOPRAZOLE (EC) 40 MG TAB PO SCH (06:31)
[2019-01-24] MEDS: INSULIN ASPART [NOVOLOG] 3 ML PEN SC SCH ×4 (07:42→20:27)
[2019-01-24] MEDS: morphine 2 MG INJ IV PRN ×2 (07:50→12:09)
[2019-01-24] MEDS: SEVELAMER CARBONATE 800 MG TABLET PO SCH ×3 (07:55→17:18)
[2019-01-24] MEDS: FOLIC ACID 1 MG TAB PO SCH (08:05)
[2019-01-24] MEDS: MULTIVIT/CA CARB/B CMPLX/FA TAB PO SCH (08:05)
[2019-01-24] MEDS: SUCRALFATE (100 MG/ML) 10ML CUP PO SCH ×3 (08:05→20:26)
[2019-01-24] MEDS: PENDING SANTYL ORDER FOR WOUND CARE XX SCH (09:00)
[2019-01-24] MEDS: COLLAGENASE 5 GM (UD JAR) TOP SCH ×2 (11:40→20:27)
[2019-01-24] MEDS: SODIUM HYPOCHLORITE (1/40) 1 APPLIC BTL IRR SCH ×2 (11:40→20:26)
[2019-01-24] MEDS: CEFEPIME 1GM/50 ML (PMX) 50 ML IVPB SCH (12:32)
--- NOTE | 2019-01-24 15:30 | PN ---
Date/Time of Note Date/Time of Note DATE: 01/24/19 TIME: 15:27 Assessment/Plan VTE Prophylaxis Risk score (from Nsg)>0 risk: 6 SCD applied (from Nsg): No SCD contraindicated: low risk/ambulating Pharmacological prophylaxis: NA/contraindicated Pharm contraindication: low risk/ambulating Lines/Catheters IV Catheter Type (from Nrs): Saline Lock Assessment/Plan Hospital Course is is a 63-year-old female presenting with: 1. Dizziness and likely secondary to hypotension which could be secondary to probably sepsis from multiple ulcers. The patient was also on blood pressure medication plus the patient was also receiving hemodialysis. 2. Multiple diabetic foot ulcers, especially on the right lower extremity, left lower extremity and also on the 3rd index finger on the left hand. 3. Status post fall with generalized pain likely secondary to hypotension, di zziness. 4. History of atrial fibrillation. 5. Hypertension, however, currently normo intensive. 6. Diabetes with complications of diabetic nephropathy, neuropathy and retinopathy. 7. End-stage renal disease on hemodialysis Wednesday, Wednesday, Wednesday. 8. Hypercholesterolemia. 9. History of peripheral vascular disease. 10. History of depression, anxiety. 11. History of gastritis. 12. History of gastroparesis. 13. History of multiple AV graft revision, thrombectomy and status post banding of the left upper extremity fistula. PLAN: -Arterial duplex reviewed; Dr. Lemus to see the patient -Spoke to Dr. Moyer who will also see the patient today -Continue with vancomycin/cefepime -HD today -Pain control -fu With wound care recommendations -cwTo hold BP meds -GI/DVT prophylaxis Result Diagram: 01/23/19 0602 01/23/19 0602 Results 24hrs Laboratory Tests Test 01/23/19 17:18 01/23/19 21:07 01/24/19 02:12 01/24/19 07:42 Bedside Glucose 73 103 122 123 Test 01/24/19 12:11 01/24/19 14:13 Bedside Glucose 160 Hepatitis B Surface NEGATIVE Antigen Subjective 24 Hr Interval Summary Free Text/Dictation Patient feels better today however still has the pain in the left leg Exam/Review of Systems Exam Vitals Vital Signs Date Temp Pulse Resp B/P (MAP) Pulse Ox O2 O2 Flow FiO2 Time Delivery Rate 01/24/19 80 12:42 01/24/19 98.2 20 138/55 100 12:08 (82) 01/24/19 Nasal 2.0 08:52 Cannula 01/24/19 21 01:31 Intake and Output 01/23/19 01/23/19 01/24/19 1515:00 23:00 07:00 IntakeIntake Total 500 ml BalanceBalance 500 ml Exam GENERAL: The patient is awake, alert, oriented, appears to be in moderate distress secondary to pain. HEENT: Pupils are equal, round, reactive to light. NECK: Supple. No JVD. HEART: Regular rate and rhythm. LUNGS: Clear to auscultate bilaterally. ABDOMEN: Soft, nontender, nondistended. The patient has multiple bruises present. EXTREMITIES: Right lower extremity, the patient is status post amputation of the great toe. The patient has blackish discoloration at the sole of the foot w hich is visible. The patient also has a 3 x 4 cm ulcer with some discharge. On the left foot, the patient also has an ulcer noted near the ankle. The patient also has the left 3rd finger with superficial ulcer. The patient has multiple ulcerations. Feeble distal pulses. SKIN: The patient has a right PermCath in place. Results Results 24hrs Laboratory Tests Test 01/23/19 17:18 01/23/19 21:07 01/24/19 02:12 01/24/19 07:42 Bedside Glucose 73 103 122 123 Test 01/24/19 12:11 01/24/19 14:13 Bedside Glucose 160 Hepatitis B Surface NEGATIVE Antigen Medications Medication Current Medications IV Flush (NS 3 ml) 3 ml PER PROTOCOL IV ; Start 01/23/19 at 12:30 Ondansetron HCl (Zofran Inj) 4 mg Q6H PRN IV NAUSEA/VOMITING; Start 01/23/19 at 12:30 Acetaminophen (Tylenol Tab) 650 mg Q6H PRN PO .PAIN 1-3 OR TEMP; Start 01/23/19 at 12:30 Acetaminophen/ Hydrocodone Bitart ([place] (5/325)) 1 tab Q6H PRN PO .MOD PAIN 4- 6 Last administered on 01/23/19at 17:53; Admin Dose 1 TAB; Start 01/23/19 at 12:30 Morphine Sulfate (morphine) 2 mg Q4H PRN IV .SEVERE PAIN 7-10 Last administered on 01/24/19 12:09; Admin Dose 2 MG; Start 01/23/19 at 12:30 Pantoprazole (Protonix Tab) 40 mg DAILY@06 PO Last administered on 01/24/19 06:31; Admin Dose 40 MG; Start 01/24/19 at 06:00 Vancomycin HCl (Vanco Iv Per Pharmacy) VANCOMYCIN PER PHARMACY PER PROTOCOL XX ; Start 01/23/19 at 12:30 Cefepime HCl 50 ml @ 100 mls/hr Q24H IVPB Last administered on 01/24/19 12:32; Admin Dose 100 MLS/HR; Start 01/23/19 at 13:00 Diagnostic Test (Pha) (Accu-Chek) 1 ea 02 XX Last administered on 01/24/19 02:26; Admin Dose 1 EA; Start 01/24/19 at 02:00 Insulin Aspart (Novolog Insulin Pen) NOVOLOG *MILD* ALGORITHM WITH MEALS BEDTIME SC Last administered on 01/24/19 12:36; Admin Dose 1 UNIT; Start 01/23/19 at 18:00 Atorvastatin Calcium (Lipitor) 20 mg QHS PO Last administered on 01/23/19 21:08; Admin Dose 20 MG; Start 01/23/19 at 21:00 Benzonatate (Tessalon) 100 mg DAILY PRN PO COUGH; Start 01/23/19 at 14:00 Bisacodyl (Dulcolax) 5 mg BID PRN PO CONSTIPATION; Start 01/23/19 at 14:00 Docusate Sodium (Colace) 100 mg BID PRN PO CONSTIPATION; Start 01/23/19 at 14:00 Folic Acid (Folic Acid) 1 mg DAILY PO Last administered on 01/24/19 08:05; Admin Dose 1 MG; Start 01/24/19 at 09:00 Albuterol/ Ipratropium (Duoneb) 3 ml Q4H RESP THERAPY PRN NEB WHEEZING AND SOB; Start 01/23/19 at 14:00 Loperamide HCl (Imodium Cap) 2 mg DAILY PRN PO CONSTIPATION; Start 01/23/19 at 14:00 Multivit/Ca Carb/ B Cmplx/FA/Prenat (Suzie-Paula) 1 tab DAILY PO Last administered on 01/24/19 08:05; Admin Dose 1 TAB; Start 01/24/19 at 09:00 Sevelamer Carbonate (Renvela) 2,400 mg WITH MEALS PO Last administered on 01/24/19at 12:09; Admin Dose 2,400 MG; Start 01/23/19 at 18:00 Sucralfate (Carafate Susp) 1 gm TID PO Last administered on 01/24/19at 12:32; Admin Dose 1 GM; Start 01/23/19 at 21:00 Miscellaneous Information 1 ea NOTE XX ; Start 01/23/19 at 14:30 Glucose (Glutose) 15 gm Q15M PRN PO DECREASED GLUCOSE; Start 01/23/19 at 14:30 Glucose (Glutose) 22.5 gm Q15M PRN PO DECREASED GLUCOSE; Start 01/23/19 at 14:30 Dextrose (D50w Syringe) 25 ml Q15M PRN IV DECREASED GLUCOSE; Start 01/23/19 at 14:30 Dextrose (D50w Syringe) 50 ml Q15M PRN IV DECREASED GLUCOSE; Start 01/23/19 at 14:30 Glucagon (Glucagen) 1 mg Q15M PRN IM DECREASED GLUCOSE; Start 01/23/19 at 14:30 Glucose (Glutose) 15 gm Q15M PRN BUCCAL DECREASED GLUCOSE; Start 01/23/19 at 14:30 Miscellaneous Information (Pending Santyl Order For Wound Care) This patient davis... DAILY XX ; Start 01/24/19 at 09:00 Zolpidem Tartrate (Ambien) 5 mg HS PRN PO INSOMNIA Last administered on 01/23/19at 22:31; Admin Dose 5 MG; Start 01/23/19 at 22:30 Sodium Hypochlorite (Dakin'S (Dilute )) 1 applic BID IRR Last administered on 01/24/19at 11:40; Admin Dose 1 APPLIC; Start 01/24/19 at 11:30 Collagenase (Santyl) 1 applic BID TOP Last administered on 01/24/19at 11:40; Admin Dose 1 APPLIC; Start 01/24/19 at 11:00 Miscellaneous Information (*Rx Drug Level Order Reminder*) RANDOM VANCO LEVEL 2... ONCE ONCE XX ; Start 01/25/19 at 05:00; Stop 01/25/19 at 05:01 Heparin Sodium (Porcine) (Heparin (1000 Units/ml)) 3,700 unit AFTER DIALYSIS CATHETER ; Start 01/24/19 at 15:30 JACOB GONZALEZ MD Jan 24, 2019 15:30
--- NOTE | 2019-01-24 15:43 | CONS ---
Assessment/Plan Assessment/Plan Hospital Course (Demo Recall) No acute events overnight patient is awake looks comfortable no fevers overnight no labs this morning Indwelling: Right chest permacath Antimicrobials: Vancomycin, cefepime Chest x-ray on admission revealed moderate cardiomegaly no pleural effusion or pneumothorax. Lungs clear Physical examination: Chronically ill-appearing elderly woman who is awake in no distress. Head atraumatic normocephalic sclera nonicteric. Neck is supple. Chest rise symmetrical breath sounds diminished bases. Heart: S1-S2. Abdomen soft bowel sounds present. Extremities with bilateral lower extremities dressing intact. Assessment: 1. Clinical sepsis with generalized weakness and symptomatic hypotension on admission 2. End-stage renal disease, hemodialysis dependent 3. Diabetes 4. Hypertension 5. History of atrial fibrillation 6. Multiple ulcers Plan: Patient is clinically stable, will order blood cultures with next hemodialysis, continue present care Consultation Date/Type/Reason Admit Date/Time Jan 23, 2019 at 07:22 Initial Consult Date Type of Consult id Date/Time of Note DATE: 01/24/19 TIME: 15:41 Exam/Review of Systems Exam Vitals Vital Signs Date Temp Pulse Resp B/P (MAP) Pulse Ox O2 O2 Flow FiO2 Time Delivery Rate 01/24/19 80 12:42 01/24/19 98.2 20 138/55 100 12:08 (82) 01/24/19 Nasal 2.0 08:52 Cannula 01/24/19 21 01:31 Intake and Output 01/23/19 01/23/19 01/24/19 1515:00 23:00 07:00 IntakeIntake Total 500 ml BalanceBalance 500 ml Results Result Diagram: 01/23/19 0602 01/23/19 0602 Results 24hrs Laboratory Tests Test 01/23/19 17:18 01/23/19 21:07 01/24/19 02:12 01/24/19 07:42 Bedside Glucose 73 103 122 123 Test 01/24/19 12:11 01/24/19 14:13 Bedside Glucose 160 Hepatitis B Surface NEGATIVE Antigen Medications Medication Current Medications IV Flush (NS 3 ml) 3 ml PER PROTOCOL IV ; Start 01/23/19 at 12:30 Ondansetron HCl (Zofran Inj) 4 mg Q6H PRN IV NAUSEA/VOMITING; Start 01/23/19 at 12:30 Acetaminophen (Tylenol Tab) 650 mg Q6H PRN PO .PAIN 1-3 OR TEMP; Start 01/23/19 at 12:30 Acetaminophen/ Hydrocodone Bitart ([place] (5/325)) 1 tab Q6H PRN PO .MOD PAIN 4- 6 Last administered on 01/23/19 17:53; Admin Dose 1 TAB; Start 01/23/19 at 12:30 Morphine Sulfate (morphine) 2 mg Q4H PRN IV .SEVERE PAIN 7-10 Last administered on 01/24/19 12:09; Admin Dose 2 MG; Start 01/23/19 at 12:30 Pantoprazole (Protonix Tab) 40 mg DAILY@06 PO Last administered on 01/24/19 06:31; Admin Dose 40 MG; Start 01/24/19 at 06:00 Vancomycin HCl (Vanco Iv Per Pharmacy) VANCOMYCIN PER PHARMACY PER PROTOCOL XX ; Start 01/23/19 at 12:30 Cefepime HCl 50 ml @ 100 mls/hr Q24H IVPB Last administered on 01/24/19 12:32; Admin Dose 100 MLS/HR; Start 01/23/19 at 13:00 Diagnostic Test (Pha) (Accu-Chek) 1 ea 02 XX Last administered on 01/24/19 02:26; Admin Dose 1 EA; Start 01/24/19 at 02:00 Insulin Aspart (Novolog Insulin Pen) NOVOLOG *MILD* ALGORITHM WITH MEALS BEDTIME SC Last administered on 01/24/19 12:36; Admin Dose 1 UNIT; Start 01/23/19 at 18:00 Atorvastatin Calcium (Lipitor) 20 mg QHS PO Last administered on 01/23/19 21:08; Admin Dose 20 MG; Start 01/23/19 at 21:00 Benzonatate (Tessalon) 100 mg DAILY PRN PO COUGH; Start 01/23/19 at 14:00 Bisacodyl (Dulcolax) 5 mg BID PRN PO CONSTIPATION; Start 01/23/19 at 14:00 Docusate Sodium (Colace) 100 mg BID PRN PO CONSTIPATION; Start 01/23/19 at 14:00 Folic Acid (Folic Acid) 1 mg DAILY PO Last administered on 01/24/19 08:05; Admin Dose 1 MG; Start 01/24/19 at 09:00 Albuterol/ Ipratropium (Duoneb) 3 ml Q4H RESP THERAPY PRN NEB WHEEZING AND SOB; Start 01/23/19 at 14:00 Loperamide HCl (Imodium Cap) 2 mg DAILY PRN PO CONSTIPATION; Start 01/23/19 at 14:00 Multivit/Ca Carb/ B Cmplx/FA/Prenat (Suzie-Paula) 1 tab DAILY PO Last administe red on 01/24/19at 08:05; Admin Dose 1 TAB; Start 01/24/19 at 09:00 Sevelamer Carbonate (Renvela) 2,400 mg WITH MEALS PO Last administered on 01/24/19at 12:09; Admin Dose 2,400 MG; Start 01/23/19 at 18:00 Sucralfate (Carafate Susp) 1 gm TID PO Last administered on 01/24/19at 12:32; Admin Dose 1 GM; Start 01/23/19 at 21:00 Miscellaneous Information 1 ea NOTE XX ; Start 01/23/19 at 14:30 Glucose (Glutose) 15 gm Q15M PRN PO DECREASED GLUCOSE; Start 01/23/19 at 14:30 Glucose (Glutose) 22.5 gm Q15M PRN PO DECREASED GLUCOSE; Start 01/23/19 at 14:30 Dextrose (D50w Syringe) 25 ml Q15M PRN IV DECREASED GLUCOSE; Start 01/23/19 at 14:30 Dextrose (D50w Syringe) 50 ml Q15M PRN IV DECREASED GLUCOSE; Start 01/23/19 at 14:30 Glucagon (Glucagen) 1 mg Q15M PRN IM DECREASED GLUCOSE; Start 01/23/19 at 14:30 Glucose (Glutose) 15 gm Q15M PRN BUCCAL DECREASED GLUCOSE; Start 01/23/19 at 14:30 Miscellaneous Information (Pending [facility] Order For Wound Care) This patient davis... DAILY XX ; Start 01/24/19 at 09:00 Zolpidem Tartrate (Ambien) 5 mg HS PRN PO INSOMNIA Last administered on 01/23/19at 22:31; Admin Dose 5 MG; Start 01/23/19 at 22:30 Sodium Hypochlorite (Dakin'S (Dilute )) 1 applic BID IRR Last administered on 01/24/19at 11:40; Admin Dose 1 APPLIC; Start 01/24/19 at 11:30 Collagenase (Santyl) 1 applic BID TOP Last administered on 01/24/19at 11:40; Admin Dose 1 APPLIC; Start 01/24/19 at 11:00 Miscellaneous Information (*Rx Drug Level Order Reminder*) RANDOM VANCO LEVEL 2... ONCE ONCE XX ; Start 01/25/19 at 05:00; Stop 01/25/19 at 05:01 Heparin Sodium (Porcine) (Heparin (1000 Units/ml)) 3,700 unit AFTER DIALYSIS CATHETER ; Start 01/24/19 at 15:30 Apixaban (Eliquis) 2.5 mg DAILY PO ; Start 01/25/19 at 09:00 JOHANA KULKARNI NP Jan 24, 2019 15:43
[2019-01-24] MEDS: HEPARIN 1000 UNITS/ML 10 ML INJ CATHETER SCH (18:49)
[2019-01-24] MEDS: ATORVASTATIN 20 MG TAB PO SCH (20:26)
[2019-01-24] MEDS: ZOLPIDEM 5 MG TAB PO PRN (22:26)
--- NOTE | 2019-01-24 23:28 | CONS ---
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 Apply Santyl ointment to all wounds bilateral feet 2. Keep both heels OFF of the bedding; heels to air at all times Weightbearing: non weightbearing at this time Continue IVAbx; monitor daily No surgery recommended at this time for her feet Vascular consultation recommended Will follow in house Thank you again for involving me in the care of this patient. If you have any questions regarding this case, please feel free to contact me at pager: [phone] or reach me at mobile: [phone]. Consultation Date/Type/Reason Admit Date/Time Jan 23, 2019 at 07:22 Date of Consultation: Jan 24, 2019 Type of Consult Foot & Ankle Surgery Reason for Consultation Evaluation of open wounds on both feet. Date/Time of Note DATE: 01/24/19 TIME: 23:28 Hx of Present Illness Thank you very much for your kind consultation. As you very well know, this is a 63-year-old female with multiple medical problems, such as diabetes, hypertension, hypercholesterolemia, end-stage renal disease on hemodialysis for the last 11 years, AFib, right foot ulcers, history of peripheral vascular disease, who has been feeling dizzy for the last 3 to 4 days as per patient. She went for a regular dialysis session; however she was noted to be hypotensive and then was sent into the ER for further evaluation. The patient reports that she apparently fell at the [facility] yesterday when she was trying to get a part of the chair, trying to go to the bathroom and had sustained injury on the right arm and the right hip. I was consulted for evaluation of her feet. She states that she has developed new wounds on the backs of both heels. PAST MEDICAL HISTORY: 1. Diabetes for many years. 2. Hypertension. 3. End-stage renal disease on Wednesday, Wednesday, Wednesday. 4. History of pneumonia. 5. History of AFib. 6. History of cholecystectomy. 7. History of diabetic foot surgery. 8. History of anxiety. 9. Depression 10. History of multiple AV graft revision and thrombectomy. 11. History of gastritis. 12. History of gastroparesis. 13. History of peripheral vascular disease. Constitutional: no complaints Eyes: no complaints ENT: no complaints Respiratory: no complaints Cardiovascular: no complaints Past Medical History Home Meds Active Scripts Hydrocodone/Acetaminophen ([place] 10-325 Tablet) 1 Each Tablet, 1 TAB PO Q6H PRN for PAIN, #7 TAB Prov:LINCOLN LEW MD 10/19/18 Reported Medications Insulin Aspart* (Novolog Insulin Pen*) 100 Unit/Ml Soln, 0-5 SC .SLIDING SCALE AC, EA 11/17/18 Sucralfate* (Carafate*) 1 Gm/10 Ml Susp, 1 GM PO TID, EA 11/17/18 Hydromorphone Hcl* (Dilaudid*) 4 Mg Tablet, 4 MG PO Q6H PRN for PAIN, TAB 11/17/18 Hydrocodone/Acetaminophen ([place] 5-325 Tablet) 1 Each Tablet, 1 EACH PO Q6 PRN for WHEEZING AND SOB, TAB 11/17/18 Ondansetron Hcl* (Ondansetron Hcl*) 4 Mg Tablet, 4 MG PO Q6H PRN for NAUSEA AND/OR VOMITING, TAB 11/17/18 Sevelamer Hcl* (Renagel*) 800 Mg Tablet, 2400 MG PO WITH MEALS, TAB 11/17/18 Gabapentin* (Gabapentin*) 300 Mg Capsule, 300 MG PO TID, #90 CAP 11/17/18 Glucagon,Human Recombinant (Glucagen) 1 Mg Vial, 1 MG IJ DAILY for LOW GLUCOSE, VIAL 11/17/18 Loperamide Hcl* (Loperamide Hcl*) 2 Mg Cap, 2 MG PO DAILY PRN for CONSTIPATION, CAP 11/17/18 Ipratropium-Albuterol (Ipratropium-Albuterol) 0.5-3 Mg/3 Ml Ampul.neb, 3 ML INHALATION Q4 PRN for WHEEZING AND SOB, #30 VIAL 11/17/18 Acetaminophen* (Acetaminophen*) 500 MG Extra Strength Tablet, 500 MG PO Q4H PRN for MILD PAIN LEVEL 1-3, TAB 11/17/18 Lubiprostone* (Amitiza*) 24 Mcg Capsule, 24 MCG PO BID, #60 CAP 11/17/18 Famotidine* (Famotidine*) 20 Mg Tablet, 20 MG PO BID, #60 TAB 11/17/18 Docusate Sodium* (Colace*) 100 Mg Capsule, 100 MG PO BID PRN for CONSTIPATION, #60 CAP 11/17/18 Temazepam* (Restoril*) 30 Mg Capsule, 30 MG PO HS PRN for INSOMNIA, CAP 11/17/18 Benzonatate* (Benzonatate*) 100 Mg Capsule, 100 MG PO DAILY PRN for COUGH, CAP 11/17/18 Metoprolol Tartrate* (Lopressor*) 50 Mg Tab, 50 MG PO BID, #60 TAB 11/17/18 Atorvastatin Calcium* (Atorvastatin Calcium*) 20 Mg Tablet, 20 MG PO QHS, #30 TAB 11/17/18 Losartan Potassium* (Losartan Potassium*) 25 Mg Tablet, 25 MG PO DAILY, TAB 11/17/18 Multivit/Ca Carb/B Cmplx/Fa* (Suzie-Paula*) 1 Tab Tab, 1 TAB PO DAILY, TAB 11/17/18 Apixaban* (Eliquis*) 2.5 Mg Tablet, 2.5 MG PO DAILY, TAB 11/17/18 Folic Acid* (Folic Acid*) 1 Mg Tablet, 1 MG PO DAILY, TAB 07/14/18 Bisacodyl* (Dulcolax*) 5 Mg Tablet.dr, 5 MG PO BID PRN for CONSTIPATION, TAB 07/14/18 Polyethylene Glycol* (Miralax*) 17 Gm Powd.pack, 17 GM PO DAILY PRN for CONSTIPATION, #30 PACKET 07/14/18 Bisacodyl (Laxative Suppository) 10 Mg Supp.rect, 10 MG RC DAILY for SEVERE CONSTIPATION, SUPP.RECT 07/14/18 Tramadol Hcl* (Ultram*) 50 Mg Tablet, 50 MG PO TID PRN for PAIN, TAB 06/07/18 Furosemide* (Furosemide*) 20 Mg Tablet, 20 MG PO DAILY, #60 TAB 06/07/18 Medications Current Medications IV Flush (NS 3 ml) 3 ml PER PROTOCOL IV ; Start 01/23/19 at 12:30 Ondansetron HCl (Zofran Inj) 4 mg Q6H PRN IV NAUSEA/VOMITING; Start 01/23/19 at 12:30 Acetaminophen (Tylenol Tab) 650 mg Q6H PRN PO .PAIN 1-3 OR TEMP; Start 01/23/19 at 12:30 Acetaminophen/ Hydrocodone Bitart ([place] (5/325)) 1 tab Q6H PRN PO .MOD PAIN 4- 6 Last administered on 01/23/19at 17:53; Admin Dose 1 TAB; Start 01/23/19 at 12:30 Morphine Sulfate (morphine) 2 mg Q4H PRN IV .SEVERE PAIN 7-10 Last administered on 01/24/19 12:09; Admin Dose 2 MG; Start 01/23/19 at 12:30 Pantoprazole (Protonix Tab) 40 mg DAILY@06 PO Last administered on 01/24/19 06:31; Admin Dose 40 MG; Start 01/24/19 at 06:00 Vancomycin HCl (Vanco Iv Per Pharmacy) VANCOMYCIN PER PHARMACY PER PROTOCOL XX ; Start 01/23/19 at 12:30 Cefepime HCl 50 ml @ 100 mls/hr Q24H IVPB Last administered on 01/24/19at 12:32; Admin Dose 100 MLS/HR; Start 01/23/19 at 13:00 Diagnostic Test (Pha) (Accu-Chek) 1 ea 02 XX Last administered on 01/24/19at 02:26; Admin Dose 1 EA; Start 01/24/19 at 02:00 Insulin Aspart (Novolog Insulin Pen) NOVOLOG *MILD* ALGORITHM WITH MEALS BEDTIME SC Last administered on 01/24/19at 12:36; Admin Dose 1 UNIT; Start 01/23/19 at 18:00 Atorvastatin Calcium (Lipitor) 20 mg QHS PO Last administered on 01/24/19at 2 0:26; Admin Dose 20 MG; Start 01/23/19 at 21:00 Benzonatate (Tessalon) 100 mg DAILY PRN PO COUGH; Start 01/23/19 at 14:00 Bisacodyl (Dulcolax) 5 mg BID PRN PO CONSTIPATION; Start 01/23/19 at 14:00 Docusate Sodium (Colace) 100 mg BID PRN PO CONSTIPATION; Start 01/23/19 at 14:00 Folic Acid (Folic Acid) 1 mg DAILY PO Last administered on 01/24/19at 08:05; Admin Dose 1 MG; Start 01/24/19 at 09:00 Albuterol/ Ipratropium (Duoneb) 3 ml Q4H RESP THERAPY PRN NEB WHEEZING AND SOB; Start 01/23/19 at 14:00 Loperamide HCl (Imodium Cap) 2 mg DAILY PRN PO CONSTIPATION; Start 01/23/19 at 14:00 Multivit/Ca Carb/ B Cmplx/FA/Prenat (Suzie-Paula) 1 tab DAILY PO Last administered on 01/24/19at 08:05; Admin Dose 1 TAB; Start 01/24/19 at 09:00 Sevelamer Carbonate (Renvela) 2,400 mg WITH MEALS PO Last administered on 01/24/19at 12:09; Admin Dose 2,400 MG; Start 01/23/19 at 18:00 Sucralfate (Carafate Susp) 1 gm TID PO Last administered on 01/24/19at 20:26; Admin Dose 1 GM; Start 01/23/19 at 21:00 Miscellaneous Information 1 ea NOTE XX ; Start 01/23/19 at 14:30 Glucose (Glutose) 15 gm Q15M PRN PO DECREASED GLUCOSE; Start 01/23/19 at 14:30 Glucose (Glutose) 22.5 gm Q15M PRN PO DECREASED GLUCOSE; Start 01/23/19 at 14:30 Dextrose (D50w Syringe) 25 ml Q15M PRN IV DECREASED GLUCOSE; Start 01/23/19 at 14:30 Dextrose (D50w Syringe) 50 ml Q15M PRN IV DECREASED GLUCOSE; Start 01/23/19 at 14:30 Glucagon (Glucagen) 1 mg Q15M PRN IM DECREASED GLUCOSE; Start 01/23/19 at 14:30 Glucose (Glutose) 15 gm Q15M PRN BUCCAL DECREASED GLUCOSE; Start 01/23/19 at 14:30 Miscellaneous Information (Pending [facility] Order For Wound Care) This patient davis... DAILY XX ; Start 01/24/19 at 09:00 Zolpidem Tartrate (Ambien) 5 mg HS PRN PO INSOMNIA Last administered on 01/24/19at 22:26; Admin Dose 5 MG; Start 01/23/19 at 22:30 Sodium Hypochlorite (Dakin'S (Dilute )) 1 applic BID IRR Last administered on 01/24/19at 20:26; Admin Dose 1 APPLIC; Start 01/24/19 at 11:30 Collagenase (Santyl) 1 applic BID TOP Last administered on 01/24/19at 20:27; Admin Dose 1 APPLIC; Start 01/24/19 at 11:00 Miscellaneous Information (*Rx Drug Level Order Reminder*) RANDOM VANCO LEVEL 2... ONCE ONCE XX ; Start 01/25/19 at 05:00; Stop 01/25/19 at 05:01 Heparin Sodium (Porcine) (Heparin (1000 Units/ml)) 3,700 unit AFTER DIALYSIS CATHETER Last administered on 01/24/19at 18:49; Admin Dose 3,700 UNIT; Start 01/24/19 at 15:30 Apixaban (Eliquis) 2.5 mg DAILY PO ; Start 01/25/19 at 09:00 Allergies: Coded Allergies: No Known Allergies (Verified Allergy, Unknown, 11/25/18) Past Surgical History As per history of present illness. Past Surgical Hx: angioplasty, appendectomy, cholecystectomy, endoscopy, other Social History Smoking Status: Never smoker Exam/Review of Systems Exam Vitals Vital Signs Date Temp Pulse Resp B/P (MAP) Pulse Ox O2 O2 Flow FiO2 Time Delivery Rate 01/24/19 105 20:00 01/24/19 Nasal 2.0 19:40 Cannula 01/24/19 97.5 20 123/65 98 19:24 (84) 01/24/19 21 01:31 Intake and Output 01/23/19 01/23/19 01/24/19 1515:00 23:00 07:00 IntakeIntake Total 500 ml BalanceBalance 500 ml Exam Patient is laying supine in bed in no acute distress. Multiple open wounds noted on both feet in various stages of healing. Patient has new wounds on the back of the heels with erythema. There is no active bleeding and no pus but there is serosang drainage. There is tenderness to palpation of both feet as per patient. Edema of bilateral feet noted. There is hyperpigmentation of bilateral lower extremity. Labs reviewed. Results Result Diagram: 01/23/19 0602 01/23/19 0602 Results 24hrs Laboratory Tests Test 01/24/19 02:12 01/24/19 07:42 01/24/19 12:11 01/24/19 14:13 Bedside Glucose 122 123 160 Hepatitis B Surface NEGATIVE Antigen Test 01/24/19 17:03 01/24/19 20:22 Bedside Glucose 129 132 Medications Medication Current Medications IV Flush (NS 3 ml) 3 ml PER PROTOCOL IV ; Start 01/23/19 at 12:30 Ondansetron HCl (Zofran Inj) 4 mg Q6H PRN IV NAUSEA/VOMITING; Start 01/23/19 at 12:30 Acetaminophen (Tylenol Tab) 650 mg Q6H PRN PO .PAIN 1-3 OR TEMP; Start 01/23/19 at 12:30 Acetaminophen/ Hydrocodone Bitart ([place] (5/325)) 1 tab Q6H PRN PO .MOD PAIN 4- 6 Last administered on 01/23/19at 17:53; Admin Dose 1 TAB; Start 01/23/19 at 12:30 Morphine Sulfate (morphine) 2 mg Q4H PRN IV .SEVERE PAIN 7-10 Last administered on 01/24/19 12:09; Admin Dose 2 MG; Start 01/23/19 at 12:30 Pantoprazole (Protonix Tab) 40 mg DAILY@06 PO Last administered on 01/24/19at 06:31; Admin Dose 40 MG; Start 01/24/19 at 06:00 Vancomycin HCl (Vanco Iv Per Pharmacy) VANCOMYCIN PER PHARMACY PER PROTOCOL XX ; Start 01/23/19 at 12:30 Cefepime HCl 50 ml @ 100 mls/hr Q24H IVPB Last administered on 01/24/19at 12:32; Admin Dose 100 MLS/HR; Start 01/23/19 at 13:00 Diagnostic Test (Pha) (Accu-Chek) 1 ea 02 XX Last administered on 01/24/19at 0 2:26; Admin Dose 1 EA; Start 01/24/19 at 02:00 Insulin Aspart (Novolog Insulin Pen) NOVOLOG *MILD* ALGORITHM WITH MEALS BEDTIME SC Last administered on 01/24/19 12:36; Admin Dose 1 UNIT; Start 12/31 04/16 at 18:00 Atorvastatin Calcium (Lipitor) 20 mg QHS PO Last administered on 01/24/19at 20:26; Admin Dose 20 MG; Start 01/23/19 at 21:00 Benzonatate (Tessalon) 100 mg DAILY PRN PO COUGH; Start 01/23/19 at 14:00 Bisacodyl (Dulcolax) 5 mg BID PRN PO CONSTIPATION; Start 01/23/19 at 14:00 Docusate Sodium (Colace) 100 mg BID PRN PO CONSTIPATION; Start 01/23/19 at 14:00 Folic Acid (Folic Acid) 1 mg DAILY PO Last administered on 01/24/19at 08:05; Admin Dose 1 MG; Start 01/24/19 at 09:00 Albuterol/ Ipratropium (Duoneb) 3 ml Q4H RESP THERAPY PRN NEB WHEEZING AND SOB; Start 01/23/19 at 14:00 Loperamide HCl (Imodium Cap) 2 mg DAILY PRN PO CONSTIPATION; Start 01/23/19 at 14:00 Multivit/Ca Carb/ B Cmplx/FA/Prenat (Suzie-Paula) 1 tab DAILY PO Last administered on 01/24/19at 08:05; Admin Dose 1 TAB; Start 01/24/19 at 09:00 Sevelamer Carbonate (Renvela) 2,400 mg WITH MEALS PO Last administered on 01/24/19at 12:09; Admin Dose 2,400 MG; Start 01/23/19 at 18:00 Sucralfate (Carafate Susp) 1 gm TID PO Last administered on 01/24/19at 20:26; Admin Dose 1 GM; Start 01/23/19 at 21:00 Miscellaneous Information 1 ea NOTE XX ; Start 01/23/19 at 14:30 Glucose (Glutose) 15 gm Q15M PRN PO DECREASED GLUCOSE; Start 01/23/19 at 14:30 Glucose (Glutose) 22.5 gm Q15M PRN PO DECREASED GLUCOSE; Start 01/23/19 at 14:30 Dextrose (D50w Syringe) 25 ml Q15M PRN IV DECREASED GLUCOSE; Start 01/23/19 at 14:30 Dextrose (D50w Syringe) 50 ml Q15M PRN IV DECREASED GLUCOSE; Start 01/23/19 at 14:30 Glucagon (Glucagen) 1 mg Q15M PRN IM DECREASED GLUCOSE; Start 01/23/19 at 14:30 Glucose (Glutose) 15 gm Q15M PRN BUCCAL DECREASED GLUCOSE; Start 01/23/19 at 14:30 Miscellaneous Information (Pending Santyl Order For Wound Care) This patient davis... DAILY XX ; Start 01/24/19 at 09:00 Zolpidem Tartrate (Ambien) 5 mg HS PRN PO INSOMNIA Last administered on 01/24/19at 22:26; Admin Dose 5 MG; Start 01/23/19 at 22:30 Sodium Hypochlorite (Dakin'S (Dilute )) 1 applic BID IRR Last administered on 01/24/19at 20:26; Admin Dose 1 APPLIC; Start 01/24/19 at 11:30 Collagenase (Santyl) 1 applic BID TOP Last administered on 01/24/19at 20:27; Admin Dose 1 APPLIC; Start 01/24/19 at 11:00 Miscellaneous Information (*Rx Drug Level Order Reminder*) RANDOM VANCO LEVEL 2... ONCE ONCE XX ; Start 01/25/19 at 05:00; Stop 01/25/19 at 05:01 Heparin Sodium (Porcine) (Heparin (1000 Units/ml)) 3,700 unit AFTER DIALYSIS CATHETER Last administered on 01/24/19at 18:49; Admin Dose 3,700 UNIT; Start 01/24/19 at 15:30 Apixaban (Eliquis) 2.5 mg DAILY PO ; Start 01/25/19 at 09:00 MONAE SCHULER DPM Jan 24, 2019 23:28
[2019-01-25] VITALS (10 sets, daily range): BP systolic 116–127; BP diastolic 55–69; PULSE 57–101; RESP 18–20
[2019-01-25] MEDS: ACCU-CHEK XX SCH (02:27)
[2019-01-25] MEDS: morphine 2 MG INJ IV PRN ×4 (04:27→23:47)
[2019-01-25] MEDS: PANTOPRAZOLE (EC) 40 MG TAB PO SCH (05:52)
[2019-01-25] MEDS: SEVELAMER CARBONATE 800 MG TABLET PO SCH ×3 (08:07→17:12)
[2019-01-25] MEDS: SUCRALFATE (100 MG/ML) 10ML CUP PO SCH ×3 (08:07→20:47)
[2019-01-25] MEDS: MULTIVIT/CA CARB/B CMPLX/FA TAB PO SCH (08:07)
[2019-01-25] MEDS: FOLIC ACID 1 MG TAB PO SCH (08:07)
[2019-01-25] MEDS: APIXABAN 5 MG TABLET PO SCH (08:08)
[2019-01-25] MEDS: COLLAGENASE 5 GM (UD JAR) TOP SCH ×2 (08:08→20:47)
[2019-01-25] MEDS: INSULIN ASPART [NOVOLOG] 3 ML PEN SC SCH ×4 (08:15→22:04)
[2019-01-25] MEDS: SODIUM HYPOCHLORITE (1/40) 1 APPLIC BTL IRR SCH ×2 (08:23→20:49)
[2019-01-25] MEDS: PENDING SANTYL ORDER FOR WOUND CARE XX SCH (08:37)
[2019-01-25] MEDS ORDERED: VANCOMYCIN 1 GM 250 ML IVPB SCH (10:00)
--- NOTE | 2019-01-25 12:03 | PN ---
Date/Time of Note Date/Time of Note DATE: 01/25/19 TIME: 11:55 Assessment/Plan VTE Prophylaxis Risk score (from Ns)>0 risk: 9 SCD applied (from Ns): No SCD contraindicated: low risk/ambulating Pharmacological prophylaxis: NA/contraindicated Pharm contraindication: low risk/ambulating Lines/Catheters IV C[facility]ter Type (from [facility]): [facility] Assessment/Plan Hospital Course is is a 63-year-old female presenting with: 1. Dizziness and likely secondary to hypotension which could be secondary to probably sepsis from multiple ulcers. The patient was also on blood pressure medication plus the patient was also receiving hemodialysis. 2. Multiple diabetic foot ulcers, especially on the right lower extremity, left lower extremity and also on the 3rd index finger on the left hand. 3. Status post fall with generalized pain likely secondary to hypotension, di zziness. 4. History of atrial fibrillation. 5. Hypertension, however, currently normo intensive. 6. Diabetes with complications of diabetic nephropathy, neuropathy and retinopathy. 7. End-stage renal disease on hemodialysis Wednesday, Wednesday, Wednesday. 8. Hypercholesterolemia. 9. History of peripheral vascular disease. 10. History of depression, anxiety. 11. History of gastritis. 12. History of gastroparesis. 13. History of multiple AV graft revision, thrombectomy and status post banding of the left upper extremity fistula. PLAN: -Arterial duplex reviewed; Dr. Lemus to see the patient -No foot intervention by Dr. Moyer -Continue with vancomycin/cefepime -HD tMW -Surgery consult for possible debridement -Pain control -fu With wound care recommendations -cwTo hold BP meds -GI/DVT prophylaxis Result Diagram: 01/25/19 0503 01/25/19 0503 Results 24hrs Laboratory Tests Test 01/24/19 12:11 01/24/19 14:13 01/24/19 17:03 01/24/19 20:22 Bedside Glucose 160 129 132 Hepatitis B Surface NEGATIVE Antigen Test 01/25/19 02:04 01/25/19 05:03 01/25/19 08:06 01/25/19 11:38 Bedside Glucose 172 142 174 White Blood Count 7.0 Red Blood Count 3.82 L Hemoglobin 12.1 Hematocrit 36.8 L Mean Corpuscular 96.3 Volume Mean Corpuscular 31.7 Hemoglobin Mean Corpuscular 32.9 Hemoglobin Concent Red Cell 17.8 H Distribution Width Platelet Count 164 Mean Platelet Volume 9.9 Immature 0.600 H Granulocytes % Neutrophils % 78.3 H Lymphocytes % 6.0 L Monocytes % 12.2 H Eosinophils % 2.0 Basophils % 0.9 Nucleated Red Blood 0.0 Cells % Immature 0.040 H Granulocytes # Neutrophils # 5.4 Lymphocytes # 0.4 L Monocytes # 0.9 Eosinophils # 0.1 Basophils # 0.1 Nucleated Red Blood 0.0 Cells # Sodium Level 136 Potassium Level 4.3 Chloride Level 95 L Carbon Dioxide Level 24 Anion Gap 17 H Blood Urea Nitrogen 33 H Creatinine 4.49 H Est Glomerular 10 L Filtrat Rate mL/min Glucose Level 168 Calcium Level 8.0 L Phosphorus Level 4.3 Magnesium Level 2.2 Random Vancomycin 13.9 Level Subjective 24 Hr Interval Summary Free Text/Dictation Pain in the right hip not improved Multiple ulcers noted patient was seen by podiatry Exam/Review of Systems Exam Vitals Vital Signs Date Temp Pulse Resp B/P (MAP) Pulse Ox O2 O2 Flow FiO2 Time Delivery Rate 01/25/19 98.6 94 20 119/55 94 Room Air 11:09 (76) 01/25/19 2.0 08:19 01/24/19 21 01:31 Intake and Output 01/24/19 01/24/19 01/25/19 1515:00 23:00 07:00 IntakeIntake Total 500 ml 200 ml OutputOutput Total 900 ml 300 ml BalanceBalance -400 ml -100 ml Exam GENERAL: The patient is awake, alert, oriented, appears to be in moderate distress secondary to pain. HEENT: Pupils are equal, round, reactive to light. NECK: Supple. No JVD. HEART: Regular rate and rhythm. LUNGS: Clear to auscultate bilaterally. ABDOMEN: Soft, nontender, nondistended. The patient has multiple bruises present. EXTREMITIES: Right lower extremity, the patient is status post amputation of the great toe. SKIN: The patient has a right PermCath in place. Left plantar foot. Charcot foot deformity with with DM full thickness ulcer Approx 1x0.8x0.5cm Left heel Unstageable. Right Heel. Possible mixed full thickness venous/diabetic ulcer which is mostly Unstageable condition present on admission. Left lateral/aneterior lower extremity. Probable venous ulcer which is present on admission. Measuring approx 3.5cmx3.8cmx0.5cm. W Left hand specifically anterior 3rd finger, and 2nd and 3rd finger webspace. Irrigate full thickness wound with yellow slough and exudate with Dakin's solution. Right and left arms skin tears. Left hip - Full thickness wound bed with exposed adipose tissue, without exudate or odor, linear shape Sacrococcyx - Unstageable pressure injury with surrounding non-intact DTI.. Entire wound measures approx 7x7.5x0.05cm Left gluteal region - Healing stage 3 pressure injury prior full thickness wound Results Results 24hrs Laboratory Tests Test 01/24/19 12:11 01/24/19 14:13 01/24/19 17:03 01/24/19 20:22 Bedside Glucose 160 129 132 Hepatitis B Surface NEGATIVE Antigen Test 01/25/19 02:04 01/25/19 05:03 01/25/19 08:06 01/25/19 11:38 Bedside Glucose 172 142 174 White Blood Count 7.0 Red Blood Count 3.82 L Hemoglobin 12.1 Hematocrit 36.8 L Mean Corpuscular 96.3 Volume Mean Corpuscular 31.7 Hemoglobin Mean Corpuscular 32.9 Hemoglobin Concent Red Cell 17.8 H Distribution Width Platelet Count 164 Mean Platelet Volume 9.9 Immature 0.600 H Granulocytes % Neutrophils % 78.3 H Lymphocytes % 6.0 L Monocytes % 12.2 H Eosinophils % 2.0 Basophils % 0.9 Nucleated Red Blood 0.0 Cells % Immature 0.040 H Granulocytes # Neutrophils # 5.4 Lymphocytes # 0.4 L Monocytes # 0.9 Eosinophils # 0.1 Basophils # 0.1 Nucleated Red Blood 0.0 Cells # Sodium Level 136 Potassium Level 4.3 Chloride Level 95 L Carbon Dioxide Level 24 Anion Gap 17 H Blood Urea Nitrogen 33 H Creatinine 4.49 H Est Glomerular 10 L Filtrat Rate mL/min Glucose Level 168 Calcium Level 8.0 L Phosphorus Level 4.3 Magnesium Level 2.2 Random Vancomycin 13.9 Level Medications Medication Current Medications IV Flush (NS 3 ml) 3 ml PER PROTOCOL IV ; Start 01/23/19 at 12:30 Ondansetron HCl (Zofran Inj) 4 mg Q6H PRN IV NAUSEA/VOMITING; Start 01/23/19 at 12:30 Acetaminophen (Tylenol Tab) 650 mg Q6H PRN PO .PAIN 1-3 OR TEMP; Start 01/23/19 at 12:30 Acetaminophen/ Hydrocodone Bitart ([place] (5/325)) 1 tab Q6H PRN PO .MOD PAIN 4- 6 Last administered on 01/23/19 17:53; Admin Dose 1 TAB; Start 01/23/19 at 12:30 Morphine Sulfate (morphine) 2 mg Q4H PRN IV .SEVERE PAIN 7-10 Last administered on 01/25/19 08:22; Admin Dose 2 MG; Start 01/23/19 at 12:30 Pantoprazole (Protonix Tab) 40 mg DAILY@06 PO Last administered on 01/25/19 05:52; Admin Dose 40 MG; Start 01/24/19 at 06:00 Vancomycin HCl (Vanco Iv Per Pharmacy) VANCOMYCIN PER PHARMACY PER PROTOCOL XX ; Start 01/23/19 at 12:30 Cefepime HCl 50 ml @ 100 mls/hr Q24H IVPB Last administered on 01/24/19 12:32; Admin Dose 100 MLS/HR; Start 01/23/19 at 13:00 Diagnostic Test (Pha) (Accu-Chek) 1 ea 02 XX Last administered on 01/25/19 02:27; Admin Dose 1 EA; Start 01/24/19 at 02:00 Insulin Aspart (Novolog Insulin Pen) NOVOLOG *MILD* ALGORITHM WITH MEALS BEDTIME SC Last administered on 01/25/19 11:40; Admin Dose 1 UNIT; Start 01/23/19 at 18:00 Atorvastatin Calcium (Lipitor) 20 mg QHS PO Last administered on 01/24/19 20:26; Admin Dose 20 MG; Start 01/23/19 at 21:00 Benzonatate (Tessalon) 100 mg DAILY PRN PO COUGH; Start 01/23/19 at 14:00 Bisacodyl (Dulcolax) 5 mg BID PRN PO CONSTIPATION; Start 01/23/19 at 14:00 Docusate Sodium (Colace) 100 mg BID PRN PO CONSTIPATION; Start 01/23/19 at 14:00 Folic Acid (Folic Acid) 1 mg DAILY PO Last administered on 01/25/19 08:07; Admin Dose 1 MG; Start 01/24/19 at 09:00 Albuterol/ Ipratropium (Duoneb) 3 ml Q4H RESP THERAPY PRN NEB WHEEZING AND SOB; Start 01/23/19 at 14:00 Loperamide HCl (Imodium Cap) 2 mg DAILY PRN PO CONSTIPATION; Start 01/23/19 at 14:00 Multivit/Ca Carb/ B Cmplx/FA/Prenat (Suzie-Paula) 1 tab DAILY PO Last administered on 01/25/19at 08:07; Admin Dose 1 TAB; Start 01/24/19 at 09:00 Sevelamer Carbonate (Renvela) 2,400 mg WITH MEALS PO Last administered on 01/25/19 08:07; Admin Dose 2,400 MG; Start 01/23/19 at 18:00 Sucralfate (Carafate Susp) 1 gm TID PO Last administered on 01/25/19 08:07; Admin Dose 1 GM; Start 01/23/19 at 21:00 Miscellaneous Information 1 ea NOTE XX ; Start 01/23/19 at 14:30 Glucose (Glutose) 15 gm Q15M PRN PO DECREASED GLUCOSE; Start 01/23/19 at 14:30 Glucose (Glutose) 22.5 gm Q15M PRN PO DECREASED GLUCOSE; Start 01/23/19 at 14:30 Dextrose (D50w Syringe) 25 ml Q15M PRN IV DECREASED GLUCOSE; Start 01/23/19 at 14:30 Dextrose (D50w Syringe) 50 ml Q15M PRN IV DECREASED GLUCOSE; Start 01/23/19 at 14:30 Glucagon (Glucagen) 1 mg Q15M PRN IM DECREASED GLUCOSE; Start 01/23/19 at 14:30 Glucose (Glutose) 15 gm Q15M PRN BUCCAL DECREASED GLUCOSE; Start 01/23/19 at 14:30 Misc[facility] This patient davis... DAILY XX ; Start 01/24/19 at 09:00 Zolpidem Tartrate (Ambien) 5 mg HS PRN PO INSOMNIA Last administered on 01/24/19at 22:26; Admin Dose 5 MG; Start 01/23/19 at 22:30 Sodium Hypochlorite (Dakin'S (Dilute 40)) 1 applic BID IRR Last administered on 01/25/19at 08:23; Admin Dose 1 APPLIC; Start 01/24/19 at 11:30 Collagenase (Santyl) 1 applic BID TOP Last administered on 01/25/19at 08:08; Admin Dose 1 APPLIC; Start 01/24/19 at 11:00 Heparin Sodium (Porcine) (Heparin (1000 Units/ml)) 3,700 unit AFTER DIALYSIS CATHETER Last administered on 01/24/19at 18:49; Admin Dose 3,700 UNIT; Start 01/24/19 at 15:30 Apixaban (Eliquis) 2.5 mg DAILY PO Last administered on 01/25/19at 08:08; Admin Dose 2.5 MG; Start 01/25/19 at 09:00 Vancomycin HCl 250 ml @ 125 mls/hr ONCE IVPB ; Start 01/25/19 at 10:00; Stop 01/25/19 at 23:59 JACOB GONZALEZ MD Jan 25, 2019 12:03
[2019-01-25] MEDS: CEFEPIME 1GM/50 ML (PMX) 50 ML IVPB SCH (12:26)
[2019-01-25] MEDS ORDERED: HEPARIN 1000 UNITS/ML 10 ML INJ CATHETER SCH (12:30)
--- NOTE | 2019-01-25 13:06 | CONS ---
Assessment/Plan Assessment/Plan Hospital Course (Demo Recall) 1. Multiple wounds: With history of diabetes, PVD and obesity -local care -frequent turning and off-loading -low air loss mattress -vitamin c -short term zinc -optimize nutrition -Consider ortho for interdigit wound with exposed tendon -Podiatry for feet wounds 2. Hypotension: -Hemodynamic optimization -Judicious fluids 3. ESRD with HD -Limit nephrotoxic meds -Renally dose meds -HD per renal 4. Atherosclerotic disease, PVD -Vascular optimization 5. Status post fall: -Further imaging rule out occult fractures -Fall precautions 6. Diabetes -Glucose control 7. Obesity BMI: 33 -diet and exercise optimization -encourage weight loss Thank you. Patient seen and examined in collaboration with Dr. Haseeb Ross. Consultation Date/Type/Reason Admit Date/Time Jan 23, 2019 at 07:22 Date of Consultation: Jan 25, 2019 Type of Consult Surgical Reason for Consultation Wounds Requesting Provider: AJCOB GONZALEZ MD Date/Time of Note DATE: 01/25/19 TIME: 12:28 Hx of Present Illness Mariza Sprague is a 63 yo woman who has past medical history of diabetes, hypertension, hypercholesterolemia , ESRD on hemodialysis, atrial fibrillation, multiple wounds and ulcers, PVD who was hospitalized due to hypotension during dialysis session. Associated symptoms include dizziness, subjective fevers and diarrhea. Notably, she also had an episode of fall trying to go to the bathroom with sustained injury in the right arm and right hip. She denies chills, congested cough, chest pain, palpitations, nausea, vomiting, rash. General surgery was asked to treat and evaluate her wounds. 12 point review of systems was performed is negative except for stated in HPI. Past Medical History As above Home Meds Active Scripts Hydrocodone/Acetaminophen ([place] 10-325 Tablet) 1 Each Tablet, 1 TAB PO Q6H PRN for PAIN, #7 TAB Prov:LINCOLN LEW MD 10/19/18 Reported Medications Insulin Aspart* (Novolog Insulin Pen*) 100 Unit/Ml Soln, 0-5 SC .SLIDING SCALE AC, EA 11/17/18 Sucralfate* (Carafate*) 1 Gm/10 Ml Susp, 1 GM PO TID, EA 11/17/18 Hydromorphone Hcl* (Dilaudid*) 4 Mg Tablet, 4 MG PO Q6H PRN for PAIN, TAB 11/17/18 Hydrocodone/Acetaminophen ([place] 5-325 Tablet) 1 Each Tablet, 1 EACH PO Q6 PRN for WHEEZING AND SOB, TAB 11/17/18 Ondansetron Hcl* (Ondansetron Hcl*) 4 Mg Tablet, 4 MG PO Q6H PRN for NAUSEA AND/OR VOMITING, TAB 11/17/18 Sevelamer Hcl* (Renagel*) 800 Mg Tablet, 2400 MG PO WITH MEALS, TAB 11/17/18 Gabapentin* (Gabapentin*) 300 Mg Capsule, 300 MG PO TID, #90 CAP 11/17/18 Glucagon,Human Recombinant (Glucagen) 1 Mg Vial, 1 MG IJ DAILY for LOW GLUCOSE, VIAL 11/17/18 Loperamide Hcl* (Loperamide Hcl*) 2 Mg Cap, 2 MG PO DAILY PRN for CONSTIPATION, CAP 11/17/18 Ipratropium-Albuterol (Ipratropium-Albuterol) 0.5-3 Mg/3 Ml Ampul.neb, 3 ML INHALATION Q4 PRN for WHEEZING AND SOB, #30 VIAL 11/17/18 Acetaminophen* (Acetaminophen*) 500 MG Extra Strength Tablet, 500 MG PO Q4H PRN for MILD PAIN LEVEL 1-3, TAB 11/17/18 Lubiprostone* (Amitiza*) 24 Mcg Capsule, 24 MCG PO BID, #60 CAP 11/17/18 Famotidine* (Famotidine*) 20 Mg Tablet, 20 MG PO BID, #60 TAB 11/17/18 Docusate Sodium* (Colace*) 100 Mg Capsule, 100 MG PO BID PRN for CONSTIPATION, #60 CAP 11/17/18 Temazepam* (Restoril*) 30 Mg Capsule, 30 MG PO HS PRN for INSOMNIA, CAP 11/17/18 Benzonatate* (Benzonatate*) 100 Mg Capsule, 100 MG PO DAILY PRN for COUGH, CAP 11/17/18 Metoprolol Tartrate* (Lopressor*) 50 Mg Tab, 50 MG PO BID, #60 TAB 11/17/18 Atorvastatin Calcium* (Atorvastatin Calcium*) 20 Mg Tablet, 20 MG PO QHS, #30 TAB 11/17/18 Losartan Potassium* (Losartan Potassium*) 25 Mg Tablet, 25 MG PO DAILY, TAB 11/17/18 Multivit/Ca Carb/B Cmplx/Fa* (Suzie-Paula*) 1 Tab Tab, 1 TAB PO DAILY, TAB 11/17/18 Apixaban* (Eliquis*) 2.5 Mg Tablet, 2.5 MG PO DAILY, TAB 11/17/18 Folic Acid* (Folic Acid*) 1 Mg Tablet, 1 MG PO DAILY, TAB 07/14/18 Bisacodyl* (Dulcolax*) 5 Mg Tablet.dr, 5 MG PO BID PRN for CONSTIPATION, TAB 07/14/18 Polyethylene Glycol* (Miralax*) 17 Gm Powd.pack, 17 GM PO DAILY PRN for CONSTIPATION, #30 PACKET 07/14/18 Bisacodyl (Laxative Suppository) 10 Mg Supp.rect, 10 MG RC DAILY for SEVERE CONSTIPATION, SUPP.RECT 07/14/18 Tramadol Hcl* (Ultram*) 50 Mg Tablet, 50 MG PO TID PRN for PAIN, TAB 06/07/18 Furosemide* (Furosemide*) 20 Mg Tablet, 20 MG PO DAILY, #60 TAB 06/07/18 Medications Current Medications IV Flush (NS 3 ml) 3 ml PER PROTOCOL IV ; Start 01/23/19 at 12:30 Ondansetron HCl (Zofran Inj) 4 mg Q6H PRN IV NAUSEA/VOMITING; Start 01/23/19 at 12:30 Acetaminophen (Tylenol Tab) 650 mg Q6H PRN PO .PAIN 1-3 OR TEMP; Start 01/23/19 at 12:30 Acetaminophen/ Hydrocodone Bitart ([place] (5/325)) 1 tab Q6H PRN PO .MOD PAIN 4- 6 Last administered on 01/23/19at 17:53; Admin Dose 1 TAB; Start 01/23/19 at 12:30 Morphine Sulfate (morphine) 2 mg Q4H PRN IV .SEVERE PAIN 7-10 Last administered on 01/25/19at 08:22; Admin Dose 2 MG; Start 01/23/19 at 12:30 Pantoprazole (Protonix Tab) 40 mg DAILY@06 PO Last administered on 01/25/19at 05:52; Admin Dose 40 MG; Start 01/24/19 at 06:00 Vancomycin HCl (Vanco Iv Per Pharmacy) VANCOMYCIN PER PHARMACY PER PROTOCOL XX ; Start 01/23/19 at 12:30 Cefepime HCl 50 ml @ 100 mls/hr Q24H IVPB Last administered on 01/25/19 12:26; Admin Dose 100 MLS/HR; Start 01/23/19 at 13:00 Diagnostic Test (Pha) (Accu-Chek) 1 ea 02 XX Last administered on 01/25/19 02:27; Admin Dose 1 EA; Start 01/24/19 at 02:00 Insulin Aspart (Novolog Insulin Pen) NOVOLOG *MILD* ALGORITHM WITH MEALS BEDTIME SC Last administered on 01/25/19 11:40; Admin Dose 1 UNIT; Start 01/23/19 at 18:00 Atorvastatin Calcium (Lipitor) 20 mg QHS PO Last administered on 01/24/19 20:26; Admin Dose 20 MG; Start 01/23/19 at 21:00 Benzonatate (Tessalon) 100 mg DAILY PRN PO COUGH; Start 01/23/19 at 14:00 Bisacodyl (Dulcolax) 5 mg BID PRN PO CONSTIPATION; Start 01/23/19 at 14:00 Docusate Sodium (Colace) 100 mg BID PRN PO CONSTIPATION; Start 01/23/19 at 14:00 Folic Acid (Folic Acid) 1 mg DAILY PO Last administered on 01/25/19 08:07; Admin Dose 1 MG; Start 01/24/19 at 09:00 Albuterol/ Ipratropium (Duoneb) 3 ml Q4H RESP THERAPY PRN NEB WHEEZING AND SOB; Start 01/23/19 at 14:00 Loperamide HCl (Imodium Cap) 2 mg DAILY PRN PO CONSTIPATION; Start 01/23/19 at 14:00 Multivit/Ca Carb/ B Cmplx/FA/Prenat (Suzie-Paula) 1 tab DAILY PO Last administered on 01/25/19 08:07; Admin Dose 1 TAB; Start 01/24/19 at 09:00 Sevelamer Carbonate (Renvela) 2,400 mg WITH MEALS PO Last administered on 01/25/19 12:19; Admin Dose 2,400 MG; Start 01/23/19 at 18:00 Sucralfate (Carafate Susp) 1 gm TID PO Last administered on 01/25/19 12:19; Admin Dose 1 GM; Start 01/23/19 at 21:00 Miscellaneous Information 1 ea NOTE XX ; Start 01/23/19 at 14:30 Glucose (Glutose) 15 gm Q15M PRN PO DECREASED GLUCOSE; Start 01/23/19 at 14:30 Glucose (Glutose) 22.5 gm Q15M PRN PO DECREASED GLUCOSE; Start 01/23/19 at 14:30 Dextrose (D50w Syringe) 25 ml Q15M PRN IV DECREASED GLUCOSE; Start 01/23/19 at 14:30 Dextrose (D50w Syringe) 50 ml Q15M PRN IV DECREASED GLUCOSE; Start 01/23/19 at 14:30 Glucagon (Glucagen) 1 mg Q15M PRN IM DECREASED GLUCOSE; Start 01/23/19 at 14:30 Glucose (Glutose) 15 gm Q15M PRN BUCCAL DECREASED GLUCOSE; Start 01/23/19 at 14:30 Miscellaneous Information (Pending Santyl Order For Wound Care) This patient davis... DAILY XX ; Start 01/24/19 at 09:00 Zolpidem Tartrate (Ambien) 5 mg HS PRN PO INSOMNIA Last administered on 01/24/19at 22:26; Admin Dose 5 MG; Start 01/23/19 at 22:30 Sodium Hypochlorite (Dakin'S (Dilute 40)) 1 applic BID IRR Last administered on 01/25/19at 08:23; Admin Dose 1 APPLIC; Start 01/24/19 at 11:30 Collagenase (Santyl) 1 applic BID TOP Last administered on 01/25/19at 08:08; Admin Dose 1 APPLIC; Start 01/24/19 at 11:00 Heparin Sodium (Porcine) (Heparin (1000 Units/ml)) 3,700 unit AFTER DIALYSIS CATHETER Last administered on 01/24/19at 18:49; Admin Dose 3,700 UNIT; Start 01/24/19 at 15:30 Apixaban (Eliquis) 2.5 mg DAILY PO Last administered on 01/25/19at 08:08; Admin Dose 2.5 MG; Start 01/25/19 at 09:00 Vancomycin HCl 250 ml @ 125 mls/hr ONCE IVPB Last administered on 01/25/19at 12:19; Admin Dose 125 MLS/HR; Start 01/25/19 at 10:00; Stop 01/25/19 at 23:59 Heparin Sodium (Porcine) (Heparin (1000 Units/ml)) 4,000 unit AFTER DIALYSIS CATHETER ; Start 01/25/19 at 12:30 Allergies: Coded Allergies: No Known Allergies (Verified Allergy, Unknown, 11/25/18) Past Surgical History cholecystectomy foot surgery AV graft revision and thrombectomy Past Surgical Hx: angioplasty, appendectomy, cholecystectomy, endoscopy Family History Significant Family History: no pertinent family hx Social History Smoking Status: Never smoker Exam/Review of Systems Exam Vitals Vital Signs Date Temp Pulse Resp B/P (MAP) Pulse Ox O2 O2 Flow FiO2 Time Delivery Rate 01/25/19 91 12:17 01/25/19 98.6 20 119/55 94 Room Air 11:09 (76) 01/25/19 2.0 08:19 01/24/19 21 01:31 Intake and Output 01/24/19 01/24/19 01/25/19 1515:00 23:00 07:00 IntakeIntake Total 500 ml 200 ml OutputOutput Total 900 ml 300 ml BalanceBalance -400 ml -100 ml Constitutional: alert, oriented, other (Chronically ill-appearing) Psych: nl mood/affect Head: normocephalic, atraumatic Eyes: nl conjunctiva, EOMI, nl lids, nl sclera ENMT: nl external ears & nose, nl lips & teeth, mucosa pink and moist Neck: supple, non-tender; No nuchal rigidity Respiratory: normal air movement; No congested cough, No labored breathing Cardiovascular: regular rate and rhythm, nl pulses; No edema Gastrointestinal: soft, non-tender; No distended, No tender Genitourinary - Female: No nl external genitalia Musculoskeletal: other (Bilateral lower extremity discoloration; right toe amputation); No joint tenderness Extremities: edema (2+ pitting) Neurological: nl mental status, nl speech; No nl strength (Generalized weakness) Skin: other (Sacrum/buttock: Wounds with minimal debris, no periwound erythema/drainage/malodor; right hand wound (interdigit, between index and middle): Open wound with tendon exposed and minimal hyper granulation, scant drainage; middle finger: Eschar) Results Result Diagram: 01/25/19 0503 01/25/19 0503 Results 24hrs Laboratory Tests Test 01/24/19 14:13 01/24/19 17:03 01/24/19 20:22 01/25/19 02:04 Hepatitis B Surface NEGATIVE Antigen Bedside Glucose 129 132 172 Test 01/25/19 05:03 01/25/19 08:06 01/25/19 11:38 White Blood Count 7.0 Red Blood Count 3.82 L Hemoglobin 12.1 Hematocrit 36.8 L Mean Corpuscular 96.3 Volume Mean Corpuscular 31.7 Hemoglobin Mean Corpuscular 32.9 Hemoglobin Concent Red Cell 17.8 H Distribution Width Platelet Count 164 Mean Platelet Volume 9.9 Immature 0.600 H Granulocytes % Neutrophils % 78.3 H Lymphocytes % 6.0 L Monocytes % 12.2 H Eosinophils % 2.0 Basophils % 0.9 Nucleated Red Blood 0.0 Cells % Immature 0.040 H Granulocytes # Neutrophils # 5.4 Lymphocytes # 0.4 L Monocytes # 0.9 Eosinophils # 0.1 Basophils # 0.1 Nucleated Red Blood 0.0 Cells # Sodium Level 136 Potassium Level 4.3 Chloride Level 95 L Carbon Dioxide Level 24 Anion Gap 17 H Blood Urea Nitrogen 33 H Creatinine 4.49 H Est Glomerular 10 L Filtrat Rate mL/min Glucose Level 168 Calcium Level 8.0 L Phosphorus Level 4.3 Magnesium Level 2.2 Random Vancomycin 13.9 Level Bedside Glucose 142 174 Medications Medication Current Medications IV Flush (NS 3 ml) 3 ml PER PROTOCOL IV ; Start 01/23/19 at 12:30 Ondansetron HCl (Zofran Inj) 4 mg Q6H PRN IV NAUSEA/VOMITING; Start 01/23/19 at 12:30 Acetaminophen (Tylenol Tab) 650 mg Q6H PRN PO .PAIN 1-3 OR TEMP; Start 01/23/19 at 12:30 Acetaminophen/ Hydrocodone Bitart ([place] (5/325)) 1 tab Q6H PRN PO .MOD PAIN 4- 6 Last administered on 01/23/19at 17:53; Admin Dose 1 TAB; Start 01/23/19 at 12:30 Morphine Sulfate (morphine) 2 mg Q4H PRN IV .SEVERE PAIN 7-10 Last administered on 01/25/19at 08:22; Admin Dose 2 MG; Start 01/23/19 at 12:30 Pantoprazole (Protonix Tab) 40 mg DAILY@06 PO Last administered on 01/25/19 05:52; Admin Dose 40 MG; Start 01/24/19 at 06:00 Vancomycin HCl (Vanco Iv Per Pharmacy) VANCOMYCIN PER PHARMACY PER PROTOCOL XX ; Start 01/23/19 at 12:30 Cefepime HCl 50 ml @ 100 mls/hr Q24H IVPB Last administered on 01/25/19 12:26; Admin Dose 100 MLS/HR; Start 01/23/19 at 13:00 Diagnostic Test (Pha) (Accu-Chek) 1 ea 02 XX Last administered on 01/25/19 02:27; Admin Dose 1 EA; Start 01/24/19 at 02:00 Insulin Aspart (Novolog Insulin Pen) NOVOLOG *MILD* ALGORITHM WITH MEALS BEDTIME SC Last administered on 01/25/19 11:40; Admin Dose 1 UNIT; Start 01/23/19 at 18:00 Atorvastatin Calcium (Lipitor) 20 mg QHS PO Last administered on 01/24/19 20:26; Admin Dose 20 MG; Start 01/23/19 at 21:00 Benzonatate (Tessalon) 100 mg DAILY PRN PO COUGH; Start 01/23/19 at 14:00 Bisacodyl (Dulcolax) 5 mg BID PRN PO CONSTIPATION; Start 01/23/19 at 14:00 Docusate Sodium (Colace) 100 mg BID PRN PO CONSTIPATION; Start 01/23/19 at 14:00 Folic Acid (Folic Acid) 1 mg DAILY PO Last administered on 01/25/19 08:07; Admin Dose 1 MG; Start 01/24/19 at 09:00 Albuterol/ Ipratropium (Duoneb) 3 ml Q4H RESP THERAPY PRN NEB WHEEZING AND SOB; Start 01/23/19 at 14:00 Loperamide HCl (Imodium Cap) 2 mg DAILY PRN PO CONSTIPATION; Start 01/23/19 at 14:00 Multivit/Ca Carb/ B Cmplx/FA/Prenat (Suzie-Paula) 1 tab DAILY PO Last administere d on 01/25/19 08:07; Admin Dose 1 TAB; Start 01/24/19 at 09:00 Sevelamer Carbonate (Renvela) 2,400 mg WITH MEALS PO Last administered on 01/25/19 12:19; Admin Dose 2,400 MG; Start 01/23/19 at 18:00 Sucralfate (Carafate Susp) 1 gm TID PO Last administered on 01/25/19at 12:19; Admin Dose 1 GM; Start 01/23/19 at 21:00 Miscellaneous Information 1 ea NOTE XX ; Start 01/23/19 at 14:30 Glucose (Glutose) 15 gm Q15M PRN PO DECREASED GLUCOSE; Start 01/23/19 at 14:30 Glucose (Glutose) 22.5 gm Q15M PRN PO DECREASED GLUCOSE; Start 01/23/19 at 14:30 Dextrose (D50w Syringe) 25 ml Q15M PRN IV DECREASED GLUCOSE; Start 01/23/19 at 14:30 Dextrose (D50w Syringe) 50 ml Q15M PRN IV DECREASED GLUCOSE; Start 01/23/19 at 14:30 Glucagon (Glucagen) 1 mg Q15M PRN IM DECREASED GLUCOSE; Start 01/23/19 at 14:30 Glucose (Glutose) 15 gm Q15M PRN BUCCAL DECREASED GLUCOSE; Start 01/23/19 at 14:30 Miscellaneous Information (Pending Santyl Order For Wound Care) This patient davis... DAILY XX ; Start 01/24/19 at 09:00 Zolpidem Tartrate (Ambien) 5 mg HS PRN PO INSOMNIA Last administered on 01/24/19at 22:26; Admin Dose 5 MG; Start 01/23/19 at 22:30 Sodium Hypochlorite (Dakin'S (Dilute 1/40)) 1 applic BID IRR Last administered on 01/25/19at 08:23; Admin Dose 1 APPLIC; Start 01/24/19 at 11:30 Collagenase (Santyl) 1 applic BID TOP Last administered on 01/25/19at 08:08; Admin Dose 1 APPLIC; Start 01/24/19 at 11:00 Heparin Sodium (Porcine) (Heparin (1000 Units/ml)) 3,700 unit AFTER DIALYSIS CATHETER Last administered on 01/24/19at 18:49; Admin Dose 3,700 UNIT; Start 01/24/19 at 15:30 Apixaban (Eliquis) 2.5 mg DAILY PO Last administered on 01/25/19at 08:08; Admin Dose 2.5 MG; Start 01/25/19 at 09:00 Vancomycin HCl 250 ml @ 125 mls/hr ONCE IVPB Last administered on 01/25/19at 12:19; Admin Dose 125 MLS/HR; Start 01/25/19 at 10:00; Stop 01/25/19 at 23:59 Heparin Sodium (Porcine) (Heparin (1000 Units/ml)) 4,000 unit AFTER DIALYSIS CATHETER ; Start 01/25/19 at 12:30 DOTTIE CHEEMA NP Jan 25, 2019 12:38
--- NOTE | 2019-01-25 16:01 | CONS ---
Assessment/Plan Assessment/Plan Hospital Course (Demo Recall) Awake looks comfortable no fevers overnight WBC 7 neutrophils 78.3. Lower extremity CT revealed no acute fractures. Microbiology: Blood cultures pending, MRSA swab positive Indwelling: Right chest permacath Antimicrobials: Vancomycin, cefepime Chest x-ray on admission revealed moderate cardiomegaly no pleural effusion or pneumothorax. Lungs clear Physical examination: Chronically ill-appearing elderly woman who is awake in no distress. Head atraumatic normocephalic sclera nonicteric. Neck is supple. Chest rise symmetrical breath sounds diminished bases. Heart: S1-S2. Abdomen soft bowel sounds present. Extremities with bilateral lower extremities dressing intact. Assessment: 1. Clinical sepsis with generalized weakness and symptomatic hypotension on admission 2. End-stage renal disease, hemodialysis dependent 3. Diabetes 4. Hypertension 5. History of atrial fibrillation 6. Multiple ulcers Plan: Patient is clinically stable, pending blood cultures, continue present care, add Bactroban Consultation Date/Type/Reason Admit Date/Time Jan 23, 2019 at 07:22 Initial Consult Date Type of Consult id Requesting Provider: JACOB GONZALEZ MD Date/Time of Note DATE: 01/25/19 TIME: 16:01 Exam/Review of Systems Exam Vitals Vital Signs Date Temp Pulse Resp B/P (MAP) Pulse Ox O2 O2 Flow FiO2 Time Delivery Rate 01/25/19 97.7 98 18 127/69 98 Room Air 15:29 (88) 01/25/19 2.0 08:19 01/24/19 21 01:31 Intake and Output 01/24/19 01/24/19 01/25/19 1515:00 23:00 07:00 IntakeIntake Total 500 ml 200 ml OutputOutput Total 900 ml 300 ml BalanceBalance -400 ml -100 ml Results Result Diagram: 01/25/19 0503 01/25/19 0503 Results 24hrs Laboratory Tests Test 01/24/19 17:03 01/24/19 20:22 01/25/19 02:04 01/25/19 05:03 Bedside Glucose 129 132 172 White Blood Count 7.0 Red Blood Count 3.82 L Hemoglobin 12.1 Hematocrit 36.8 L Mean Corpuscular 96.3 Volume Mean Corpuscular 31.7 Hemoglobin Mean Corpuscular 32.9 Hemoglobin Concent Red Cell 17.8 H Distribution Width Platelet Count 164 Mean Platelet Volume 9.9 Immature 0.600 H Granulocytes % Neutrophils % 78.3 H Lymphocytes % 6.0 L Monocytes % 12.2 H Eosinophils % 2.0 Basophils % 0.9 Nucleated Red Blood 0.0 Cells % Immature 0.040 H Granulocytes # Neutrophils # 5.4 Lymphocytes # 0.4 L Monocytes # 0.9 Eosinophils # 0.1 Basophils # 0.1 Nucleated Red Blood 0.0 Cells # Sodium Level 136 Potassium Level 4.3 Chloride Level 95 L Carbon Dioxide Level 24 Anion Gap 17 H Blood Urea Nitrogen 33 H Creatinine 4.49 H Est Glomerular 10 L Filtrat Rate mL/min Glucose Level 168 Calcium Level 8.0 L Phosphorus Level 4.3 Magnesium Level 2.2 Random Vancomycin 13.9 Level Test 01/25/19 08:06 01/25/19 11:38 Bedside Glucose 142 174 Medications Medication Current Medications IV Flush (NS 3 ml) 3 ml PER PROTOCOL IV ; Start 01/23/19 at 12:30 Ondansetron HCl (Zofran Inj) 4 mg Q6H PRN IV NAUSEA/VOMITING; Start 01/23/19 at 12:30 Acetaminophen (Tylenol Tab) 650 mg Q6H PRN PO .PAIN 1-3 OR TEMP; Start 01/23/19 at 12:30 Acetaminophen/ Hydrocodone Bitart ([place] (5/325)) 1 tab Q6H PRN PO .MOD PAIN 4- 6 Last administered on 01/23/19at 17:53; Admin Dose 1 TAB; Start 01/23/19 at 12:30 Morphine Sulfate (morphine) 2 mg Q4H PRN IV .SEVERE PAIN 7-10 Last administered on 01/25/19at 08:22; Admin Dose 2 MG; Start 01/23/19 at 12:30 Pantoprazole (Protonix Tab) 40 mg DAILY@06 PO Last administered on 01/25/19at 05:52; Admin Dose 40 MG; Start 01/24/19 at 06:00 Vancomycin HCl (Vanco Iv Per Pharmacy) VANCOMYCIN PER PHARMACY PER PROTOCOL XX ; Start 01/23/19 at 12:30 Cefepime HCl 50 ml @ 100 mls/hr Q24H IVPB Last administered on 01/25/19at 12:26; Admin Dose 100 MLS/HR; Start 01/23/19 at 13:00 Diagnostic Test (Pha) (Accu-Chek) 1 ea 02 XX Last administered on 01/25/19 02:27; Admin Dose 1 EA; Start 01/24/19 at 02:00 Insulin Aspart (Novolog Insulin Pen) NOVOLOG *MILD* ALGORITHM WITH MEALS BEDTIME SC Last administered on 01/25/19at 11:40; Admin Dose 1 UNIT; Start 01/23/19 at 18:00 Atorvastatin Calcium (Lipitor) 20 mg QHS PO Last administered on 01/24/19 20:26; Admin Dose 20 MG; Start 01/23/19 at 21:00 Benzonatate (Tessalon) 100 mg DAILY PRN PO COUGH; Start 01/23/19 at 14:00 Bisacodyl (Dulcolax) 5 mg BID PRN PO CONSTIPATION; Start 01/23/19 at 14:00 Docusate Sodium (Colace) 100 mg BID PRN PO CONSTIPATION; Start 01/23/19 at 14:00 Folic Acid (Folic Acid) 1 mg DAILY PO Last administered on 01/25/19 08:07; Admin Dose 1 MG; Start 01/24/19 at 09:00 Albuterol/ Ipratropium (Duoneb) 3 ml Q4H RESP THERAPY PRN NEB WHEEZING AND SOB; Start 01/23/19 at 14:00 Loperamide HCl (Imodium Cap) 2 mg DAILY PRN PO CONSTIPATION; Start 01/23/19 at 14:00 Multivit/Ca Carb/ B Cmplx/FA/Prenat (Suzie-Paula) 1 tab DAILY PO Last adm inistered on 01/25/19at 08:07; Admin Dose 1 TAB; Start 01/24/19 at 09:00 Sevelamer Carbonate (Renvela) 2,400 mg WITH MEALS PO Last administered on 01/25/19 12:19; Admin Dose 2,400 MG; Start 01/23/19 at 18:00 Sucralfate (Carafate Susp) 1 gm TID PO Last administered on 01/25/19 12:19; Admin Dose 1 GM; Start 01/23/19 at 21:00 Miscellaneous Information 1 ea NOTE XX ; Start 01/23/19 at 14:30 Glucose (Glutose) 15 gm Q15M PRN PO DECREASED GLUCOSE; Start 01/23/19 at 14:30 Glucose (Glutose) 22.5 gm Q15M PRN PO DECREASED GLUCOSE; Start 01/23/19 at 14:30 Dextrose (D50w Syringe) 25 ml Q15M PRN IV DECREASED GLUCOSE; Start 01/23/19 at 14:30 Dextrose (D50w Syringe) 50 ml Q15M PRN IV DECREASED GLUCOSE; Start 01/23/19 at 14:30 Glucagon (Glucagen) 1 mg Q15M PRN IM DECREASED GLUCOSE; Start 01/23/19 at 14:30 Glucose (Glutose) 15 gm Q15M PRN BUCCAL DECREASED GLUCOSE; Start 01/23/19 at 14:30 Miscellaneous Information (Pending Santyl Order For Wound Care) This patient davis... DAILY XX ; Start 01/24/19 at 09:00 Zolpidem Tartrate (Ambien) 5 mg HS PRN PO INSOMNIA Last administered on 01/24/19at 22:26; Admin Dose 5 MG; Start 01/23/19 at 22:30 Sodium Hypochlorite (Dakin'S (Dilute 140)) 1 applic BID IRR Last administered on 01/25/19at 08:23; Admin Dose 1 APPLIC; Start 01/24/19 at 11:30 Collagenase (Santyl) 1 applic BID TOP Last administered on 01/25/19at 08:08; Admin Dose 1 APPLIC; Start 01/24/19 at 11:00 Heparin Sodium (Porcine) (Heparin (1000 Units/ml)) 3,700 unit AFTER DIALYSIS CATHETER Last administered on 01/24/19at 18:49; Admin Dose 3,700 UNIT; Start 01/24/19 at 15:30 Apixaban (Eliquis) 2.5 mg DAILY PO Last administered on 01/25/19at 08:08; Admin Dose 2.5 MG; Start 01/25/19 at 09:00 Vancomycin HCl 250 ml @ 125 mls/hr ONCE IVPB Last administered on 01/25/19at 12:19; Admin Dose 125 MLS/HR; Start 01/25/19 at 10:00; Stop 01/25/19 at 23:59 Heparin Sodium (Porcine) (Heparin (1000 Units/ml)) 4,000 unit AFTER DIALYSIS CATHETER ; Start 01/25/19 at 12:30 JOHANA KULKARNI NP Jan 25, 2019 16:01
--- NOTE | 2019-01-25 17:39 | CONS ---
DATE OF ADMISSION: 01/23/2019 DATE OF CONSULTATION: 01/25/2019 HISTORY OF PRESENT ILLNESS: Ms. Sprague is well known to me. She is a very pleasant 63-year-old diab etic, hypertensive woman with end-stage renal disease for many years. She has had multiple problems with lower extremity wounds. She has had a chronic plantar foot ulcer on the right. She was admitte d a few days ago basically because of generalized weakness, pain and she had fallen, missed her dialy sis and has just been failing to thrive. She now has a right heel ulcer. She still has a plantar wo und, although it looks okay but the whole heel has kind of covered with dry eschar. She got ulcer on the left but small in the left foot on the heel and looks fairly clean. She has some gangrenous justyn nges in the fingers on the left hand. I ligated her AV fistula few months ago because of severe stea l. The ulcers on the hand have actually been improving. She does have not rest pain there anymore. Her main complaint now is pain in the right foot. She has a right IJ PermCath that has been functio leah well. She has been using it for dialysis. She has known fairly severe diffuse arterial disease and has had several interventions in the past. PAST MEDICAL HISTORY: Significant for diabetes, hypertension, end-stage renal disease, AFib, cholecy stectomy. She has had the right 1st toe amputated. She has got chronic right plantar foot ulcer, no w has right heel gangrene. She had multiple failed accesses in the left arm. She has gastroparesis. MEDICATIONS: Consist of: 1. Pepcid. 2. Folate. 3. Chary-Paula. 4. Lasix. 5. Zinc. 6. Eliquis. 7. Losartan. 8. Vitamin D. 9. Lipitor. 10. Metoprolol. 11. Restoril. 12. Tylenol. 13. Albuterol. 14. Loperamide. 15. Gabapentin. 16. Colace. 17. Renagel. 18. Tramadol. 19. NovoLog. 20. Dilaudid. 21. [place]. 22. Sucralfate. 23. Vancomycin. ALLERGIES: SHE IS ALLERGIC TO: 1. AMOXICILLIN. 2. CELEXA. SOCIAL HISTORY: She is a nonsmoker. She does not drink or use any illicit drugs. She has been olga ng at [facility]. She has several children that are involved with her care. FAMILY HISTORY: Significant for extensive history of diabetes in the family. REVIEW OF SYSTEMS: She has generalized pain everywhere. The left hand does not hurt. The main thin g that is hurting her now is her right foot. PHYSICAL EXAMINATION: GENERAL: She is an elderly woman. She appears much older than her stated age. VITAL SIGNS: She has been afebrile. Her blood pressure is 119/55, heart rate is 94, respiratory rat e is 20, she is 94% sat on room air. PERIPHERAL VASCULAR: She has 2+ carotid, radial and brachial pulses bilaterally. LUNGS: Clear. HEART: Regular rate and rhythm. ABDOMEN: Obese, soft, nontender. EXTREMITIES: She has a left upper arm AV fistula that has been ligated so that is chronically occlud ed. There is no edema in the left arm. She does have some gangrenous changes between the 3rd and 4t h fingers and then on the distal 3rd finger. Actually, it is dry. The ulceration really improved. They look much better than the last time I saw her. She has 2+ femoral pulses bilaterally. I do not feel popliteal, DP or PT pulses in either foot. She has a fairly extensive gangrene of the right he el foot, large eschar. She has a plantar wound that is small and looks fairly stable. It slightly i mproved from last time I saw her. She has an ulcer on the left heel that is very small and clean. DIAGNOSTIC DATA: She had arterial studies done yesterday that showed just diffuse calcification and monophasic waveforms throughout suggesting severe tibial disease, but no focal area of specific steno sis. IMPRESSION: Multiple areas of ulceration at present in right heel where she has some dry gangrene. i recommended right lower extremity arteriogram and possible intervention. I discussed with her that I am going to schedule her for Wednesday. The left foot ulcers look fairly good. I do not think that is going to be an issue with healing and the left hand continues to improve. The PermCath is working well. Dictated By: LOUIS HUNT/ABHIJIT Conf#: [id number] DID#: [id number] CC: ROGER BARRERA MD; MONAE SCHULER DPM; JACOB GONZALEZ; ALONZO KNOWLES MD;*EndCC*
[2019-01-25] MEDS: ATORVASTATIN 20 MG TAB PO SCH (20:47)
[2019-01-25] MEDS: MUPIROCIN 2% 22 GM OINT TOP SCH (21:58)
--- NOTE | 2019-01-25 23:47 | PN ---
Date/Time of Note Date/Time of Note DATE: 01/25/19 TIME: 23:45 Assessment/Plan Lines/Catheters IV Catheter Type (from Nrsg): Saline Lock Assessment/Plan Problems: (1) Non-pressure chronic ulcer of other part of right foot with necrosis of muscle Status: Chronic (2) Non-pressure ulcer of left lower extremity with necrosis of muscle (3) Charcot's joint of right foot Status: Chronic (4) Steal syndrome as complication of dialysis access Status: Acute (5) Diabetes, polyneuropathy Assessment/Plan Continue local wound care daily Elevate bilateral feet off of the bed Will follow in house Subjective 24 Hr Interval Summary Patient was seen at beside; reports her bandages are being changed daily. Reports improvement in how she feels. Patient is s/p HD yesterday. Constitutional: no complaints Pain Control: well controlled Exam/Review of Systems Vital Signs Vitals Vital Signs Date Temp Pulse Resp B/P (MAP) Pulse Ox O2 O2 Flow FiO2 Time Delivery Rate 01/28/19 93 12:45 01/28/19 20 92/54 (67) Room Air 10:55 01/28/19 98.2 98 08:03 01/26/19 2.0 15:51 Intake and Output 01/27/19 01/27/19 01/28/19 1515:00 23:00 07:00 IntakeIntake Total 430 ml BalanceBalance 430 ml Exam Free Text/Dictation Multiple open wounds on bilateral feet in various stages of healing; there is hyperpigmentation of skin bilateral lower extremity; there is no pus and no active bleeding. No other changes noted on exam. Results Result Diagram: 01/28/19 0629 01/28/19 0629 MONAE SCHULER DPM Jan 25, 2019 23:47
[2019-01-26] VITALS (22 sets, daily range): BP systolic 89–124; BP diastolic 49–72; PULSE 63–100; RESP 18–22
[2019-01-26] MEDS: ACCU-CHEK XX SCH (01:22)
[2019-01-26] MEDS: PANTOPRAZOLE (EC) 40 MG TAB PO SCH (05:28)
[2019-01-26] MEDS: HYDROCODONE/APAP (5/325) TAB PO PRN ×3 (05:29→20:21)
[2019-01-26] MEDS: INSULIN ASPART [NOVOLOG] 3 ML PEN SC SCH ×4 (07:47→20:20)
[2019-01-26] MEDS: APIXABAN 5 MG TABLET PO SCH (08:48)
[2019-01-26] MEDS: SUCRALFATE (100 MG/ML) 10ML CUP PO SCH ×3 (08:48→20:21)
[2019-01-26] MEDS: MUPIROCIN 2% 22 GM OINT TOP SCH ×2 (08:49→20:24)
[2019-01-26] MEDS: FOLIC ACID 1 MG TAB PO SCH (08:49)
[2019-01-26] MEDS: PENDING SANTYL ORDER FOR WOUND CARE XX SCH (08:49)
[2019-01-26] MEDS: SEVELAMER CARBONATE 800 MG TABLET PO SCH ×3 (08:49→17:25)
[2019-01-26] MEDS: MULTIVIT/CA CARB/B CMPLX/FA TAB PO SCH (08:49)
[2019-01-26] MEDS: COLLAGENASE 5 GM (UD JAR) TOP SCH ×2 (08:50→20:24)
[2019-01-26] MEDS: SODIUM HYPOCHLORITE (1/40) 1 APPLIC BTL IRR SCH ×2 (10:30→20:24)
--- NOTE | 2019-01-26 10:30 | PN ---
Date/Time of Note Date/Time of Note DATE: 01/26/19 TIME: 10:27 Assessment/Plan Lines/Catheters IV C[facility] (from [facility]): Saline Lock Assessment/Plan Chief Complaint/Hosp Course 1. Multiple wounds: With history of diabetes, PVD and obesity -local care -frequent turning and off-loading -low air loss mattress -vitamin c -short term zinc -optimize nutrition -Consider ortho for interdigit wound with exposed tendon -Podiatry/vascular for feet wounds -Right lower extremity arteriogram with possible intervention per vascular 2. Hypotension: Improved -Hemodynamic optimization -Judicious fluids 3. ESRD with HD -Limit nephrotoxic meds -Renally dose meds -HD per renal 4. Atherosclerotic disease, PVD -Vascular optimization> per vascular 5. Status post fall: No fractures noted on imaging -Fall precautions -Hemodynamic optimization 6. Diabetes -Glucose control 7. Obesity BMI: 33 -diet and exercise optimization -encourage weight loss Thank you. Patient seen and examined in collaboration with Dr. Haseeb Ross. Subjective 24 Hr Interval Summary Leg discomfort improved. No fevers, chills, sob, congested cough, cp, palpitations, davis, dizziness, nausea, vomiting, diarrhea, dysuria. BP improved. Exam/Review of Systems Vital Signs Vitals Vital Signs Date Temp Pulse Resp B/P (MAP) Pulse Ox O2 O2 Flow FiO2 Time Delivery Rate 01/26/19 124/60 10:39 (81) 01/26/19 98.1 95 22 96 Room Air 07:50 01/25/19 2.0 20:11 01/24/19 21 01:31 Intake and Output 01/25/19 01/25/19 01/26/19 1515:00 23:00 07:00 IntakeIntake Total 400 ml 250 ml BalanceBalance 400 ml 250 ml Exam Free Text/Dictation Constitutional: alert, oriented, other (Chronically ill-appearing) Psych: nl mood/affect Head: normocephalic, atraumatic Eyes: nl conjunctiva, EOMI, nl lids, nl sclera ENMT: nl external ears & nose, nl lips & teeth, mucosa pink and moist Neck: supple, non-tender; No nuchal rigidity Respiratory: normal air movement; No congested cough, No labored breathing Cardiovascular: regular rate and rhythm, nl pulses; No edema Gastrointestinal: soft, non-tender; No distended, No tender Genitourinary - Female: No nl external genitalia Musculoskeletal: other (Bilateral lower extremity discoloration; right toe amputation); No joint tenderness Extremities: edema (2+ pitting) Neurological: nl mental status, nl speech; No nl strength (Generalized weakness) Skin: other (Sacrum/buttock: Wounds with minimal debris, no periwound erythema/drainage/malodor; right hand wound (interdigit, between index and m iddle): Open wound with tendon exposed and minimal hyper granulation, scant drainage; middle finger: Eschar) Results Result Diagram: 01/26/19 0535 01/26/19 0535 DOTTIE CHEEMA NP Jan 26, 2019 10:30
[2019-01-26] MEDS: CEFEPIME 1GM/50 ML (PMX) 50 ML IVPB SCH (12:13)
[2019-01-26] MEDS ORDERED: ALBUMIN HUMAN 25% 100 ML IV STA (12:22)
[2019-01-26] MEDS: morphine 2 MG INJ IV PRN (15:01)
[2019-01-26] MEDS: ALBUMIN HUMAN 25% 100 ML IV PRN (15:32)
[2019-01-26] MEDS: HEPARIN 1000 UNITS/ML 10 ML INJ CATHETER SCH (16:00)
--- NOTE | 2019-01-26 16:08 | PN ---
Date/Time of Note Date/Time of Note DATE: 01/26/19 TIME: 16:08 Assessment/Plan VTE Prophylaxis Risk score (from Nsg)>0 risk: 4 SCD applied (from Ns): No SCD contraindicated: low risk/ambulating Pharmacological prophylaxis: NA/contraindicated Pharm contraindication: low risk/ambulating Lines/Catheters IV Catheter Type (from [facility]): Saline Lock Assessment/Plan Hospital Course is is a 63-year-old female presenting with: 1. Dizziness and likely secondary to hypotension which could be secondary to probably sepsis from multiple ulcers. The patient was also on blood pressure medication plus the patient was also receiving hemodialysis. 2. Multiple diabetic foot ulcers, especially on the right lower extremity, left lower extremity and also on the 3rd index finger on the left hand. 3. Status post fall with generalized pain likely secondary to hypotension, di zziness. 4. History of atrial fibrillation. 5. Hypertension, however, currently normo intensive. 6. Diabetes with complications of diabetic nephropathy, neuropathy and retinopathy. 7. End-stage renal disease on hemodialysis Wednesday, Wednesday, Wednesday. 8. Hypercholesterolemia. 9. History of peripheral vascular disease. 10. History of depression, anxiety. 11. History of gastritis. 12. History of gastroparesis. 13. History of multiple AV graft revision, thrombectomy and status post banding of the left upper extremity fistula. PLAN: -Angiogram tmw per dr Mariah harper per ID -HD TODAY -Surgery consult for possible debridement> No intervention -Pain control -fu With wound care recommendations -cwTo hold BP meds -GI/DVT prophylaxis Result Diagram: 01/26/19 0535 01/26/19 0535 Results 24hrs Laboratory Tests Test 01/25/19 16:58 01/25/19 20:45 01/25/19 21:57 01/26/19 01:19 Bedside Glucose 193 219 210 186 Test 01/26/19 05:35 01/26/19 07:26 01/26/19 12:20 White Blood Count 7.3 Red Blood Count 4.05 L Hemoglobin 12.5 Hematocrit 38.6 Mean Corpuscular 95.3 Volume Mean Corpuscular 30.9 Hemoglobin Mean Corpuscular 32.4 Hemoglobin Concent Red Cell 17.4 H Distribution Width Platelet Count 154 Mean Platelet Volume 9.7 Immature 0.400 Granulocytes % Neutrophils % 77.0 Lymphocytes % 8.7 L Monocytes % 12.0 H Eosinophils % 1.5 Basophils % 0.4 Nucleated Red Blood 0.3 H Cells % Immature 0.030 Granulocytes # Neutrophils # 5.6 Lymphocytes # 0.6 L Monocytes # 0.9 Eosinophils # 0.1 Basophils # 0.0 Nucleated Red Blood 0.0 Cells # Sodium Level 135 Potassium Level 4.7 Chloride Level 98 Carbon Dioxide Level 23 Anion Gap 14 H Blood Urea Nitrogen 42 H Creatinine 5.35 H Est Glomerular 8 L Filtrat Rate mL/min Glucose Level 143 Calcium Level 8.2 L Magnesium Level 2.1 Bedside Glucose 133 175 Subjective 24 Hr Interval Summary Free Text/Dictation surgeruy tmw per dr mercer pain in legs Exam/Review of Systems Exam Vitals Vital Signs Date Temp Pulse Resp B/P (MAP) Pulse Ox O2 O2 Flow FiO2 Time Delivery Rate 01/26/19 97.8 95 22 98/54 (69) 96 Nasal 2.0 15:51 Cannula 01/24/19 21 01:31 Intake and Output 01/25/19 01/25/19 01/26/19 1515:00 23:00 07:00 IntakeIntake Total 400 ml 250 ml BalanceBalance 400 ml 250 ml Exam GENERAL: The patient is awake, alert, oriented, appears to be in moderate distress secondary to pain. HEENT: Pupils are equal, round, reactive to light. NECK: Supple. No JVD. HEART: Regular rate and rhythm. LUNGS: Clear to auscultate bilaterally. ABDOMEN: Soft, nontender, nondistended. The patient has multiple bruises present. EXTREMITIES: Right lower extremity, the patient is status post amputation of the great toe. SKIN: The patient has a right PermCath in place. Left plantar foot. Charcot foot deformity with with DM full thickness ulcer Approx 1x0.8x0.5cm Left heel Unstageable. Right Heel. Possible mixed full thickness venous/diabetic ulcer which is mostly Unstageable condition present on admission. Left lateral/aneterior lower extremity. Probable venous ulcer which is present on admission. Measuring approx 3.5cmx3.8cmx0.5cm. W Left hand specifically anterior 3rd finger, and 2nd and 3rd finger webspace. Irrigate full thickness wound with yellow slough and exudate with Dakin's solution. Right and left arms skin tears. Left hip - Full thickness wound bed with exposed adipose tissue, without exudate or odor, linear shape Sacrococcyx - Unstageable pressure injury with surrounding non-intact DTI.. Entire wound measures approx 7x7.5x0.05cm Left gluteal region - Healing stage 3 pressure injury prior full thickness wound Results Results 24hrs Laboratory Tests Test 01/25/19 16:58 01/25/19 20:45 01/25/19 21:57 01/26/19 01:19 Bedside Glucose 193 219 210 186 Test 01/26/19 05:35 01/26/19 07:26 01/26/19 12:20 White Blood Count 7.3 Red Blood Count 4.05 L Hemoglobin 12.5 Hematocrit 38.6 Mean Corpuscular 95.3 Volume Mean Corpuscular 30.9 Hemoglobin Mean Corpuscular 32.4 Hemoglobin Concent Red Cell 17.4 H Distribution Width Platelet Count 154 Mean Platelet Volume 9.7 Immature 0.400 Granulocytes % Neutrophils % 77.0 Lymphocytes % 8.7 L Monocytes % 12.0 H Eosinophils % 1.5 Basophils % 0.4 Nucleated Red Blood 0.3 H Cells % Immature 0.030 Granulocytes # Neutrophils # 5.6 Lymphocytes # 0.6 L Monocytes # 0.9 Eosinophils # 0.1 Basophils # 0.0 Nucleated Red Blood 0.0 Cells # Sodium Level 135 Potassium Level 4.7 Chloride Level 98 Carbon Dioxide Level 23 Anion Gap 14 H Blood Urea Nitrogen 42 H Creatinine 5.35 H Est Glomerular 8 L Filtrat Rate mL/min Glucose Level 143 Calcium Level 8.2 L Magnesium Level 2.1 Bedside Glucose 133 175 Medications Medication Current Medications IV Flush (NS 3 ml) 3 ml PER PROTOCOL IV ; Start 01/23/19 at 12:30 Ondansetron HCl (Zofran Inj) 4 mg Q6H PRN IV NAUSEA/VOMITING; Start 01/23/19 at 12:30 Acetaminophen (Tylenol Tab) 650 mg Q6H PRN PO .PAIN 1-3 OR TEMP; Start 01/23/19 at 12:30 Acetaminophen/ Hydrocodone Bitart (Angelica (5/325)) 1 tab Q6H PRN PO .MOD PAIN 4- 6 Last administered on 01/26/19at 12:13; Admin Dose 1 TAB; Start 01/23/19 at 12:30 Morphine Sulfate (morphine) 2 mg Q4H PRN IV .SEVERE PAIN 7-10 Last administered on 01/26/19 15:01; Admin Dose 2 MG; Start 01/23/19 at 12:30 Pantoprazole (Protonix Tab) 40 mg DAILY@06 PO Last administered on 01/26/19 05:28; Admin Dose 40 MG; Start 01/24/19 at 06:00 Vancomycin HCl (Vanco Iv Per Pharmacy) VANCOMYCIN PER PHARMACY PER PROTOCOL XX ; Start 01/23/19 at 12:30 Cefepime HCl 50 ml @ 100 mls/hr Q24H IVPB Last administered on 01/26/19 12:13; Admin Dose 100 MLS/HR; Start 01/23/19 at 13:00 Diagnostic Test (Pha) (Accu-Chek) 1 ea 02 XX Last administered on 01/26/19 01:22; Admin Dose 1 EA; Start 01/24/19 at 02:00 Insulin Aspart (Novolog Insulin Pen) NOVOLOG *MILD* ALGORITHM WITH MEALS BEDTIME SC Last administered on 01/26/19 12:55; Admin Dose 1 UNIT; Start 01/23/19 at 18:00 Atorvastatin Calcium (Lipitor) 20 mg QHS PO Last administered on 01/25/19 20:47; Admin Dose 20 MG; Start 01/23/19 at 21:00 Benzonatate (Tessalon) 100 mg DAILY PRN PO COUGH; Start 01/23/19 at 14:00 Bisacodyl (Dulcolax) 5 mg BID PRN PO CONSTIPATION; Start 01/23/19 at 14:00 Docusate Sodium (Colace) 100 mg BID PRN PO CONSTIPATION; Start 01/23/19 at 14:00 Folic Acid (Folic Acid) 1 mg DAILY PO Last administered on 01/26/19 08:49; Admin Dose 1 MG; Start 01/24/19 at 09:00 Albuterol/ Ipratropium (Duoneb) 3 ml Q4H RESP THERAPY PRN NEB WHEEZING AND SOB; Start 01/23/19 at 14:00 Loperamide HCl (Imodium Cap) 2 mg DAILY PRN PO CONSTIPATION; Start 01/23/19 at 14:00 Multivit/Ca Carb/ B Cmplx/FA/Prenat (Suzie-Paula) 1 tab DAILY PO Last administered on 01/26/19 08:49; Admin Dose 1 TAB; Start 01/24/19 at 09:00 Sevelamer Carbonate (Renvela) 2,400 mg WITH MEALS PO Last administered on 12:13; Admin Dose 2,400 MG; Start 01/23/19 at 18:00 Sucralfate (Carafate Susp) 1 gm TID PO Last administered on 01/26/19 12:13; Admin Dose 1 GM; Start 01/23/19 at 21:00 Miscellaneous Information 1 ea NOTE XX ; Start 01/23/19 at 14:30 Glucose (Glutose) 15 gm Q15M PRN PO DECREASED GLUCOSE; Start 01/23/19 at 14:30 Glucose (Glutose) 22.5 gm Q15M PRN PO DECREASED GLUCOSE; Start 01/23/19 at 14:30 Dextrose (D50w Syringe) 25 ml Q15M PRN IV DECREASED GLUCOSE; Start 01/23/19 at 14:30 Dextrose (D50w Syringe) 50 ml Q15M PRN IV DECREASED GLUCOSE; Start 01/23/19 at 14:30 Glucagon (Glucagen) 1 mg Q15M PRN IM DECREASED GLUCOSE; Start 01/23/19 at 14:30 Glucose (Glutose) 15 gm Q15M PRN BUCCAL DECREASED GLUCOSE; Start 01/23/19 at 14:30 Miscellaneous Information (Pending Santyl Order For Wound Care) This patient davis... DAILY XX Last administered on 01/26/19 08:49; Admin Dose 1 EA; Start at 09:00 Zolpidem Tartrate (Ambien) 5 mg HS PRN PO INSOMNIA Last administered on 01/24/19 22:26; Admin Dose 5 MG; Start 01/23/19 at 22:30 Sodium Hypochlorite (Dakin'S (Dilute 40)) 1 applic BID IRR Last administered on 01/26/19 10:30; Admin Dose 1 APPLIC; Start 01/24/19 at 11:30 Collagenase (Santyl) 1 applic BID TOP Last administered on 01/25/19 20:47; Admin Dose 1 APPLIC; Start 01/24/19 at 11:00 Heparin Sodium (Porcine) (Heparin (1000 Units/ml)) 3,700 unit AFTER DIALYSIS CATHETER Last administered on 01/26/19 16:00; Admin Dose 3,700 UNIT; Start 01/24/19 at 15:30 Apixaban (Eliquis) 2.5 mg DAILY PO Last administered on 01/26/19at 08:48; Admin Dose 2.5 MG; Start 01/25/19 at 09:00 Heparin Sodium (Porcine) (Heparin (1000 Units/ml)) 4,000 unit AFTER DIALYSIS CATHETER ; Start 01/25/19 at 12:30 Mupirocin (Bactroban) 1 applic BID TOP Last administered on 01/26/19at 08:49; Admin Dose 1 APPLIC; Start 01/25/19 at 21:00 Miscellaneous Information (*Rx Drug Level Order Reminder*) RANDOM VANCO LEVEL... ONCE ONCE XX ; Start 01/27/19 at 05:00; Stop 01/27/19 at 05:01 Albumin Human 100 ml @ 100 mls/hr WITH DIALYSIS PRN IV SBP <90 DURING DIALYSIS Last administered on 01/26/19at 15:32; Admin Dose 100 MLS/HR; Start 01/26/19 at 15:30 JACOB GONZALEZ MD Jan 26, 2019 16:08
--- NOTE | 2019-01-26 17:02 | CONS ---
Assessment/Plan Assessment/Plan Hospital Course (Demo Recall) Awake looks comfortable no fevers overnight Microbiology: Blood cultures pending, MRSA swab positive Indwelling: Right chest permacath Antimicrobials: Vancomycin, cefepime Chest x-ray on admission revealed moderate cardiomegaly no pleural effusion or pneumothorax. Lungs clear Physical examination: Chronically ill-appearing elderly woman who is awake in no distress. Head atraumatic normocephalic sclera nonicteric. Neck is supple. Chest rise symmetrical breath sounds diminished bases. Heart: S1-S2. Abdomen soft bowel sounds present. Extremities with bilateral lower extremities dressing intact. Assessment: 1. Clinical sepsis with generalized weakness and symptomatic hypotension on admission 2. End-stage renal disease, hemodialysis dependent 3. Diabetes 4. Hypertension 5. History of atrial fibrillation 6. Multiple ulcers Plan: Patient is clinically stable, blood cultures neg, continue Vanco to complete 2 weeks, dc Cefepime Consultation Date/Type/Reason Admit Date/Time Jan 23, 2019 at 07:22 Initial Consult Date Type of Consult id Requesting Provider: JACOB GONZALEZ MD Date/Time of Note DATE: 01/26/19 TIME: 17:00 Exam/Review of Systems Exam Vitals Vital Signs Date Temp Pulse Resp B/P (MAP) Pulse Ox O2 O2 Flow FiO2 Time Delivery Rate 01/26/19 100 20 110/71 100 Room Air 16:40 (84) 01/26/19 97.8 2.0 15:51 01/24/19 21 01:31 Intake and Output 01/25/19 01/25/19 01/26/19 1515:00 23:00 07:00 IntakeIntake Total 400 ml 250 ml BalanceBalance 400 ml 250 ml Results Result Diagram: 01/26/19 0535 01/26/19 0535 Results 24hrs Laboratory Tests Test 01/25/19 20:45 01/25/19 21:57 01/26/19 01:19 01/26/19 05:35 Bedside Glucose 219 210 186 White Blood Count 7.3 Red Blood Count 4.05 L Hemoglobin 12.5 Hematocrit 38.6 Mean Corpuscular 95.3 Volume Mean Corpuscular 30.9 Hemoglobin Mean Corpuscular 32.4 Hemoglobin Concent Red Cell 17.4 H Distribution Width Platelet Count 154 Mean Platelet Volume 9.7 Immature 0.400 Granulocytes % Neutrophils % 77.0 Lymphocytes % 8.7 L Monocytes % 12.0 H Eosinophils % 1.5 Basophils % 0.4 Nucleated Red Blood 0.3 H Cells % Immature 0.030 Granulocytes # Neutrophils # 5.6 Lymphocytes # 0.6 L Monocytes # 0.9 Eosinophils # 0.1 Basophils # 0.0 Nucleated Red Blood 0.0 Cells # Sodium Level 135 Potassium Level 4.7 Chloride Level 98 Carbon Dioxide Level 23 Anion Gap 14 H Blood Urea Nitrogen 42 H Creatinine 5.35 H Est Glomerular 8 L Filtrat Rate mL/min Glucose Level 143 Calcium Level 8.2 L Magnesium Level 2.1 Test 01/26/19 07:26 01/26/19 12:20 Bedside Glucose 133 175 Medications Medication Current Medications IV Flush (NS 3 ml) 3 ml PER PROTOCOL IV ; Start 01/23/19 at 12:30 Ondansetron HCl (Zofran Inj) 4 mg Q6H PRN IV NAUSEA/VOMITING; Start 01/23/19 at 12:30 Acetaminophen (Tylenol Tab) 650 mg Q6H PRN PO .PAIN 1-3 OR TEMP; Start 01/23/19 at 12:30 Acetaminophen/ Hydrocodone Bitart ([place] (5/325)) 1 tab Q6H PRN PO .MOD PAIN 4- 6 Last administered on 01/26/19at 12:13; Admin Dose 1 TAB; Start 01/23/19 at 12: 30 Morphine Sulfate (morphine) 2 mg Q4H PRN IV .SEVERE PAIN 7-10 Last administered on 01/26/19at 15:01; Admin Dose 2 MG; Start 01/23/19 at 12:30 Pantoprazole (Protonix Tab) 40 mg DAILY@06 PO Last administered on 01/26/19at 05:28; Admin Dose 40 MG; Start 01/24/19 at 06:00 Vancomycin HCl (Vanco Iv Per Pharmacy) VANCOMYCIN PER PHARMACY PER PROTOCOL XX ; Start 01/23/19 at 12:30 Cefepime HCl 50 ml @ 100 mls/hr Q24H IVPB Last administered on 01/26/19at 12:13; Admin Dose 100 MLS/HR; Start 01/23/19 at 13:00 Diagnostic Test (Pha) (Accu-Chek) 1 ea 02 XX Last administered on 01/26/19at 01:22; Admin Dose 1 EA; Start 01/24/19 at 02:00 Insulin Aspart (Novolog Insulin Pen) NOVOLOG *MILD* ALGORITHM WITH MEALS BEDTIME SC Last administered on 01/26/19at 12:55; Admin Dose 1 UNIT; Start 01/23/19 at 18:00 Atorvastatin Calcium (Lipitor) 20 mg QHS PO Last administered on 01/25/19at 20:47; Admin Dose 20 MG; Start 01/23/19 at 21:00 Benzonatate (Tessalon) 100 mg DAILY PRN PO COUGH; Start 01/23/19 at 14:00 Bisacodyl (Dulcolax) 5 mg BID PRN PO CONSTIPATION; Start 01/23/19 at 14:00 Docusate Sodium (Colace) 100 mg BID PRN PO CONSTIPATION; Start 01/23/19 at 14:00 Folic Acid (Folic Acid) 1 mg DAILY PO Last administered on 01/26/19 08:49; Admin Dose 1 MG; Start 01/24/19 at 09:00 Albuterol/ Ipratropium (Duoneb) 3 ml Q4H RESP THERAPY PRN NEB WHEEZING AND SOB; Start 01/23/19 at 14:00 Loperamide HCl (Imodium Cap) 2 mg DAILY PRN PO CONSTIPATION; Start 01/23/19 at 14:00 Multivit/Ca Carb/ B Cmplx/FA/Prenat (Suzie-Paula) 1 tab DAILY PO Last administered on 01/26/19 08:49; Admin Dose 1 TAB; Start 01/24/19 at 09:00 Sevelamer Carbonate (Renvela) 2,400 mg WITH MEALS PO Last administered on 01/26/19 12:13; Admin Dose 2,400 MG; Start 01/23/19 at 18:00 Sucralfate (Carafate Susp) 1 gm TID PO Last administered on 01/26/19 12:13; Admin Dose 1 GM; Start 01/23/19 at 21:00 Miscellaneous Information 1 ea NOTE XX ; Start 01/23/19 at 14:30 Glucose (Glutose) 15 gm Q15M PRN PO DECREASED GLUCOSE; Start 01/23/19 at 14:30 Glucose (Glutose) 22.5 gm Q15M PRN PO DECREASED GLUCOSE; Start 01/23/19 at 14:30 Dextrose (D50w Syringe) 25 ml Q15M PRN IV DECREASED GLUCOSE; Start 01/23/19 at 14:30 Dextrose (D50w Syringe) 50 ml Q15M PRN IV DECREASED GLUCOSE; Start 01/23/19 at 14:30 Glucagon (Glucagen) 1 mg Q15M PRN IM DECREASED GLUCOSE; Start 01/23/19 at 14:30 Glucose (Glutose) 15 gm Q15M PRN BUCCAL DECREASED GLUCOSE; Start 01/23/19 at 14:30 Miscellaneous Information (Pending Santyl Order For Wound Care) This patient davis... DAILY XX Last administered on 01/26/19 08:49; Admin Dose 1 EA; Start 01/24/19 at 09:00 Zolpidem Tartrate (Ambien) 5 mg HS PRN PO INSOMNIA Last administered on 01/24/19 22:26; Admin Dose 5 MG; Start 01/23/19 at 22:30 Sodium Hypochlorite (Dakin'S (Dilute )) 1 applic BID IRR Last administered on 01/26/19 10:30; Admin Dose 1 APPLIC; Start 01/24/19 at 11:30 Collagenase (Santyl) 1 applic BID TOP Last administered on 01/25/19 20:47; Admin Dose 1 APPLIC; Start 01/24/19 at 11:00 Heparin Sodium (Porcine) (Heparin (1000 Units/ml)) 3,700 unit AFTER DIALYSIS CATHETER Last administered on 01/26/19 16:00; Admin Dose 3,700 UNIT; Start 01/24/19 at 15:30 Apixaban (Eliquis) 2.5 mg DAILY PO Last administered on 01/26/19 08:48; Admin Dose 2.5 MG; Start 01/25/19 at 09:00 Heparin Sodium (Porcine) (Heparin (1000 Units/ml)) 4,000 unit AFTER DIALYSIS CATHETER ; Start 01/25/19 at 12:30 Mupirocin (Bactroban) 1 applic BID TOP Last administered on 01/26/19 08:49; Admin Dose 1 APPLIC; Start 01/25/19 at 21:00 Miscellaneous Information (*Rx Drug Level Order Reminder*) RANDOM VANCO LEVEL... ONCE ONCE XX ; Start 01/27/19 at 05:00; Stop 01/27/19 at 05:01 Albumin Human 100 ml @ 100 mls/hr WITH DIALYSIS PRN IV SBP <90 DURING DIALYSIS Last administered on 01/26/19at 15:32; Admin Dose 100 MLS/HR; Start 01/26/19 at 15:30 JOHANA KULKARNI NP Jan 26, 2019 17:01
[2019-01-26] MEDS: ATORVASTATIN 20 MG TAB PO SCH (20:21)
[2019-01-26] MEDS: ZOLPIDEM 5 MG TAB PO PRN (23:35)
[2019-01-27] VITALS (20 sets, daily range): BP systolic 91–111; BP diastolic 47–65; PULSE 69–105; RESP 8–22
[2019-01-27] MEDS: ACCU-CHEK XX SCH (02:00)
[2019-01-27] MEDS: PANTOPRAZOLE (EC) 40 MG TAB PO SCH (05:03)
[2019-01-27] MEDS: SEVELAMER CARBONATE 800 MG TABLET PO SCH ×3 (08:00→17:52)
[2019-01-27] MEDS: INSULIN ASPART [NOVOLOG] 3 ML PEN SC SCH ×4 (08:00→21:00)
[2019-01-27] MEDS: SODIUM HYPOCHLORITE (1/40) 1 APPLIC BTL IRR SCH ×2 (08:20→21:16)
[2019-01-27] MEDS: PENDING SANTYL ORDER FOR WOUND CARE XX SCH (08:21)
[2019-01-27] MEDS: MUPIROCIN 2% 22 GM OINT TOP SCH ×2 (08:21→21:16)
[2019-01-27] MEDS: COLLAGENASE 5 GM (UD JAR) TOP SCH ×2 (08:21→21:15)
[2019-01-27] MEDS: APIXABAN 5 MG TABLET PO SCH (09:00)
[2019-01-27] MEDS: morphine 2 MG INJ IV PRN ×3 (09:38→18:56)
[2019-01-27] MEDS ORDERED: HEPARIN 1000 UNITS/NS (A-LINE) 1,000 ML ONE (10:31)
[2019-01-27] MEDS ORDERED: IODIXANOL LOCM 100 ML BTL ONE (10:31)
[2019-01-27] MEDS ORDERED: LIDOCAINE 1% (MDV) 20 ML INJ ONE (10:31)
[2019-01-27] MEDS ORDERED: MIDAZOLAM 1 MG/ML 2 ML INJ ONE (10:32)
[2019-01-27] MEDS ORDERED: FENTAnyl 50 MCG/ML VIAL ONE (10:32)
--- NOTE | 2019-01-27 11:06 | SIPON ---
Date/Time of Note Date/Time of Note DATE: 01/27/19 TIME: 11:04 Operative Report Preoperative Diagnosis R heel gangrene Postoperative Diagnosis same Operation/Procedure Performed aortogram, BLE angiogram, R posterior tibial artery angioplasty (2.5 x 220 to 12 ramez, 90% to 0%), NAVARRO patent, DP patent Surgeon see signature line assistant account executive none Anesthesia: moderate sedation Estimated blood loss: minimal Transfusion Required none Specimen none Grafts/Implants none Complications none LOUIS DAY MD Jan 27, 2019 11:06
[2019-01-27] MEDS: HYDROCODONE/APAP (5/325) TAB PO PRN ×2 (11:43→21:15)
[2019-01-27] MEDS: SUCRALFATE (100 MG/ML) 10ML CUP PO SCH ×3 (13:00→21:15)
--- NOTE | 2019-01-27 13:50 | OPR ---
DATE OF OPERATION: 01/27/2019 PREOPERATIVE DIAGNOSIS: Right heel gangrene. POSTOPERATIVE DIAGNOSIS: Right heel gangrene. PROCEDURE PERFORMED: Abdominal aortogram, bilateral extremity runoff and percutaneous angioplasty of right posterior tibial artery severe stenosis. SURGEON: Louis Lemus MD ANESTHESIA: Local with sedation. ESTIMATED BLOOD LOSS: Minimal. COMPLICATIONS: No intraprocedural complications. INDICATIONS: This is a 63-year-old woman with diabetes, hypertension, end-stage renal disease for ma ny years, who has developed gangrene of the right heel. She also has a smaller ulcer on the left charmaine t and a right plantar wound as well, so I brought her in today for angiogram and possible interventio n for limb salvage. PROCEDURE IN DETAILS: The patient was brought to the electrical laboratory technician and placed on the table in supine posi tion. Left groin was prepped and draped in the usual sterile fashion. Using ultrasound to identify the left common femoral artery, I infiltrated over the artery using about 10 mL of 1% Xylocaine. Und er ultrasound guidance, I entered the left common femoral artery with micropuncture needle and advanc ed a 0.018 wire through the needle and into the artery. The micropuncture sheath was advanced over t he wire into the artery. I then advanced an 0.035 Bentson wire into the abdominal aorta, exchanged t he micropuncture sheath for 5-Salvadorean sheath over the wire and advanced rim catheter into the infraren al aorta. I did an aortogram and advanced the catheter up and over the bifurcation. Using a Bentson wire, I advanced it into the right superficial femoral artery and then did runoff down the right low er extremity. FINDINGS OF ANGIOGRAPHY: The infrarenal aorta is widely patent. The iliac segment is patent bilater ally. Both common, superficial and profunda femoral arteries are patent bilaterally. Going down the right leg, there is diffuse calcification but no stenosis in the SFA or popliteal above or below the knee. Below the knee, there is 3-vessel runoff. The anterior tibial artery is actually patent all the way down across the ankle and reclamped and then fills the dorsalis pedis. The peroneal artery i s patent but dissipates in the distal calf. Posterior tibial artery is patent and crosses the ankle into the foot, but there is about a 90% stenosis in the proximal portion of the posterior tibial gerard ry. The wound is on the heel. This is a dominant vessel going to the heel, so I decided to treat th e posterior tibial artery stenosis. I then gave the patient 5000 units of heparin intravenously. I then advanced 0.035 Advantage wire down into the popliteal artery and then exchanged the 5-Salvadorean she ath for 6-Salvadorean 70 cm sheath which I advanced into the right popliteal artery. I then used the Adva ntage wire and an 0.035 Quick-Cross catheter to engage the origin of posterior tibial. I then advanc ed an 0.014 Command wire through the area of stenosis in the posterior tibial down into the distal po sterior tibial. I then angioplastied the proximal and mid posterior tibial artery with a 2.5 mm ball oon to 12 atmospheres for 2-minute inflation. Completion angiogram showed no residual stenosis in th e posterior tibial. There was now brisk flow into the anterior and posterior tibials with the same r ate and they came down both into the foot quite nicely. There was actually patent pedal arch. I see flow from 1 vessel into the other and then into the mid foot and there is good perfusion of the heel area. I was happy with the result. I removed all the catheter sheaths and wires. I used a 6-Frenc h Angio-Seal device to close the puncture site in the left groin with good hemostasis. Sterile dress ing was applied. The patient was transferred to the recovery room in stable condition. She tolerate d the procedure well without any complications. Dictated By: LOUIS HUNT/ABHIJIT Conf#: [id number] DID#: [id number] CC: JACOB GONZALEZ; ALONZO KNOWLES MD; ROGER BARRERA MD; MONAE SCHULER DPM;*EndCC*
--- NOTE | 2019-01-27 14:44 | PN ---
Date/Time of Note Date/Time of Note DATE: 01/27/19 TIME: 14:44 Assessment/Plan VTE Prophylaxis Risk score (from Ns)>0 risk: 9 SCD applied (from Ns): No SCD contraindicated: bilateral amputee Pharmacological prophylaxis: apixaban Lines/Catheters IV [facility]atheter [facility] (from [facility]): Saline Lock Assessment/Plan Hospital Course is is a 63-year-old female presenting with: 1. Dizziness and likely secondary to hypotension which could be secondary to probably sepsis from multiple ulcers. The patient was also on blood pressure medication plus the patient was also receiving hemodialysis. 2. Multiple diabetic foot ulcers, especially on the right lower extremity, left lower extremity and also on the 3rd index finger on the left hand. 3. Status post fall with generalized pain likely secondary to hypotension, dizziness. 4. History of atrial fibrillation. 5. Hypertension, however, currently normo intensive. 6. Diabetes with complications of diabetic nephropathy, neuropathy and retinop athy. 7. End-stage renal disease on hemodialysis Wednesday, Wednesday, Wednesday. 8. Hypercholesterolemia. 9. History of peripheral vascular disease. 10. History of depression, anxiety. 11. History of gastritis. 12. History of gastroparesis. 13. History of multiple AV graft revision, thrombectomy and status post banding of the left upper extremity fistula. Assessment/Plan -Angiogram done per dr Lemus> no interventions - vanco per ID -HD was yesterday -Surgery consult for possible debridement> No intervention -Pain control -fu wound care -hold BP meds -GI/DVT prophylaxis Result Diagram: 01/26/19 0535 01/26/19 0535 Results 24hrs Laboratory Tests Test 01/26/19 17:20 01/26/19 20:20 01/27/19 05:03 01/27/19 08:19 Bedside Glucose 146 159 109 Random Vancomycin 17.7 Level Test 01/27/19 12:07 Bedside Glucose 106 Subjective 24 Hr Interval Summary Gastrointestinal: pain (abdominal), other Musculoskeletal: restricted range of motion, swelling (both feet) Exam/Review of Systems Exam Vitals Vital Signs Date Temp Pulse Resp B/P (MAP) Pulse Ox O2 O2 Flow FiO2 Time Delivery Rate 01/27/19 98.7 102 22 95/52 (66) 96 Room Air 12:50 01/26/19 2.0 15:51 01/24/19 21 01:31 Intake and Output 01/26/19 01/26/19 01/27/19 1515:00 23:00 07:00 IntakeIntake Total 980 ml 300 ml OutputOutput Total 1400 ml BalanceBalance -420 ml 300 ml Exam right chest Permcath Constitutional: alert, oriented Eyes: nl conjunctiva Cardiovascular: regular rate and rhythm Gastrointestinal: soft Musculoskeletal: other (foot ulcer) Results Results 24hrs Laboratory Tests Test 01/26/19 17:20 01/26/19 20:20 01/27/19 05:03 01/27/19 08:19 Bedside Glucose 146 159 109 Random Vancomycin 17.7 Level Test 01/27/19 12:07 Bedside Glucose 106 Medications Medication Current Medications IV Flush (NS 3 ml) 3 ml PER PROTOCOL IV ; Start 01/23/19 at 12:30 Ondansetron HCl (Zofran Inj) 4 mg Q6H PRN IV NAUSEA/VOMITING; Start 01/23/19 at 12:30 Acetaminophen (Tylenol Tab) 650 mg Q6H PRN PO .PAIN 1-3 OR TEMP; Start 01/23/19 at 12:30 Acetaminophen/ Hydrocodone Bitart ([place] (5/325)) 1 tab Q6H PRN PO .MOD PAIN 4- 6 Last administered on 01/27/19at 11:43; Admin Dose 1 TAB; Start 01/23/19 at 12:30 Morphine Sulfate (morphine) 2 mg Q4H PRN IV .SEVERE PAIN 7-10 Last administered on 01/27/19at 13:49; Admin Dose 2 MG; Start 01/23/19 at 12:30 Pantoprazole (Protonix Tab) 40 mg DAILY@06 PO Last administered on 01/26/19at 05:28; Admin Dose 40 MG; Start 01/24/19 at 06:00 Vancomycin HCl (Vanco Iv Per Pharmacy) VANCOMYCIN PER PHARMACY PER PROTOCOL XX ; Start 01/23/19 at 12:30 Diagnostic Test (Pha) (Accu-Chek) 1 ea XX Last administered on 01/26/19at 01:22; Admin Dose 1 EA; Start 01/24/19 at 02:00 Insulin Aspart (Novolog Insulin Pen) NOVOLOG *MILD* ALGORITHM WITH MEALS BEDTIME SC Last administered on 01/26/19at 17:27; Admin Dose 1 UNIT; Start 01/23/19 at 18:00 Atorvastatin Calcium (Lipitor) 20 mg QHS PO Last administered on 01/26/19at 20:21; Admin Dose 20 MG; Start 01/23/19 at 21:00 Benzonatate (Tessalon) 100 mg DAILY PRN PO COUGH; Start 01/23/19 at 14:00 Bisacodyl (Dulcolax) 5 mg BID PRN PO CONSTIPATION; Start 01/23/19 at 14:00 Docusate Sodium (Colace) 100 mg BID PRN PO CONSTIPATION; Start 01/23/19 at 14:00 Folic Acid (Folic Acid) 1 mg DAILY PO Last administered on 01/26/19at 08:49; Ad min Dose 1 MG; Start 01/24/19 at 09:00 Albuterol/ Ipratropium (Duoneb) 3 ml Q4H RESP THERAPY PRN NEB WHEEZING AND SOB; Start 01/23/19 at 14:00 Loperamide HCl (Imodium Cap) 2 mg DAILY PRN PO CONSTIPATION Last administered on 01/26/19at 20:21; Admin Dose 2 MG; Start 01/23/19 at 14:00 Multivit/Ca Carb/ B Cmplx/FA/Prenat (Suzie-Paula) 1 tab DAILY PO Last administered on 01/26/19at 08:49; Admin Dose 1 TAB; Start 01/24/19 at 09:00 Sevelamer Carbonate (Renvela) 2,400 mg WITH MEALS PO Last administered on 01/26/19 17:25; Admin Dose 2,400 MG; Start 01/23/19 at 18:00 Sucralfate (Carafate Susp) 1 gm TID PO Last administered on 01/26/19at 20:21; Admin Dose 1 GM; Start 01/23/19 at 21:00 Miscellaneous Information 1 ea NOTE XX ; Start 01/23/19 at 14:30 Glucose (Glutose) 15 gm Q15M PRN PO DECREASED GLUCOSE; Start 01/23/19 at 14:30 Glucose (Glutose) 22.5 gm Q15M PRN PO DECREASED GLUCOSE; Start 01/23/19 at 14:30 Dextrose (D50w Syringe) 25 ml Q15M PRN IV DECREASED GLUCOSE; Start 01/23/19 at 14:30 Dextrose (D50w Syringe) 50 ml Q15M PRN IV DECREASED GLUCOSE; Start 01/23/19 at 14:30 Glucagon (Glucagen) 1 mg Q15M PRN IM DECREASED GLUCOSE; Start 01/23/19 at 14:30 Glucose (Glutose) 15 gm Q15M PRN BUCCAL DECREASED GLUCOSE; Start 01/23/19 at 14:30 Miscellaneous Information (Pending Santyl Order For Wound Care) This patient davis... DAILY XX Last administered on 01/27/19 08:21; Admin Dose 1 EA; Start 01/24/19 at 09:00 Zolpidem Tartrate (Ambien) 5 mg HS PRN PO INSOMNIA Last administered on 01/26/19 at 23:35; Admin Dose 5 MG; Start 01/23/19 at 22:30 Sodium Hypochlorite (Dakin'S (Dilute )) 1 applic BID IRR Last administered on 01/27/19 08:20; Admin Dose 1 APPLIC; Start 01/24/19 at 11:30 Collagenase (Santyl) 1 applic BID TOP Last administered on 01/27/19 08:21; Admin Dose 1 APPLIC; Start 01/24/19 at 11:00 Heparin Sodium (Porcine) (Heparin (1000 Units/ml)) 3,700 unit AFTER DIALYSIS CATHETER Last administered on 01/26/19 16:00; Admin Dose 3,700 UNIT; Start 01/24/19 at 15:30 Apixaban (Eliquis) 2.5 mg DAILY PO Last administered on 01/26/19 08:48; Admin Dose 2.5 MG; Start 01/25/19 at 09:00 Heparin Sodium (Porcine) (Heparin (1000 Units/ml)) 4,000 unit AFTER DIALYSIS CATHETER ; Start 01/25/19 at 12:30 Mupirocin (Bactroban) 1 applic BID TOP Last administered on 01/27/19 08:21; Admin Dose 1 APPLIC; Start 01/25/19 at 21:00 Albumin Human 100 ml @ 100 mls/hr WITH DIALYSIS PRN IV SBP <90 DURING DIALYSIS Last administered on 01/26/19at 15:32; Admin Dose 100 MLS/HR; Start 01/26/19 at 15:30 Vancomycin HCl 250 ml @ 125 mls/hr ONCE ONCE IVPB ; Start 01/27/19 at 18:00; Stop 01/27/19 at 19:59 KENNY TERRAZAS Jan 27, 2019 14:44
[2019-01-27] MEDS: FOLIC ACID 1 MG TAB PO SCH (14:57)
[2019-01-27] MEDS: MULTIVIT/CA CARB/B CMPLX/FA TAB PO SCH (14:57)
--- NOTE | 2019-01-27 15:49 | PN ---
Date/Time of Note Date/Time of Note DATE: 01/27/19 TIME: 15:47 Assessment/Plan Lines/Catheters IV [facility] (from [facility]): Saline Lock Assessment/Plan Chief Complaint/Hosp Course 1. Multiple wounds: With history of diabetes, PVD and obesity; status post abdominal aortogram, bilateral extremity runoff and percutaneous angioplasty of right posterior tibial artery severe stenosis -Continue local care -frequent turning and off-loading -low air loss mattress -vitamin c -short term zinc -optimize nutrition -Consider ortho for interdigit wound with exposed tendon -Podiatry/vascular for feet wounds -Vascular optimization per vascular 2. Hypotension: Improved -Hemodynamic optimization -Judicious fluids 3. ESRD with HD -Limit nephrotoxic meds -Renally dose meds -HD per renal 4. Atherosclerotic disease, PVD -Vascular optimization> per vascular 5. Status post fall: No fractures noted on imaging -Fall precautions -Hemodynamic optimization 6. Diabetes -Glucose control 7. Obesity BMI: 33 -diet and exercise optimization -encourage weight loss Thank you. Patient seen and examined in collaboration with Dr. Haseeb Ross. Subjective 24 Hr Interval Summary Status post abdominal aortogram, bilateral extremity runoff and percutaneous angioplasty of right posterior tibial artery severe stenosis. No fevers, chills, sob, congested cough, cp, palpitations, davis, dizziness, nausea, vomiting, diarrhea, dysuria. Exam/Review of Systems Vital Signs Vitals Vital Signs Date Temp Pulse Resp B/P (MAP) Pulse Ox O2 O2 Flow FiO2 Time Delivery Rate 01/27/19 98.7 102 22 95/52 (66) 96 Room Air 12:50 01/26/19 2.0 15:51 01/24/19 21 01:31 Intake and Output 01/26/19 01/26/19 01/27/19 1515:00 23:00 07:00 IntakeIntake Total 980 ml 300 ml OutputOutput Total 1400 ml BalanceBalance -420 ml 300 ml Exam Free Text/Dictation Constitutional: alert, oriented, other (Chronically ill-appearing) Psych: nl mood/affect Head: normocephalic, atraumatic Eyes: nl conjunctiva, EOMI, nl lids, nl sclera ENMT: nl external ears & nose, nl lips & teeth, mucosa pink and moist Neck: supple, non-tender; No nuchal rigidity Respiratory: normal air movement; No congested cough, No labored breathing Cardiovascular: regular rate and rhythm, nl pulses; No edema Gastrointestinal: soft, non-tender; No distended, No tender Genitourinary - Female: No nl external genitalia Musculoskeletal: other (Bilateral lower extremity discoloration; right toe amputation); No joint tenderness Extremities: edema (2+ pitting) Neurological: nl mental status, nl speech; No nl strength (Generalized weakness) Skin: other (Sacrum/buttock: Wounds with minimal debris, no periwound erythema/drainage/malodor; right hand wound (interdigit, between index and middle): Open wound with tendon exposed and minimal hyper granulation, scant drainage; middle finger: Eschar) Results Result Diagram: 01/26/19 0535 01/26/19 0535 DOTTIE CHEEMA NP Jan 27, 2019 15:49
[2019-01-27] MEDS ORDERED: VANCOMYCIN 1 GM (PMX) 250 ML IVPB ONE (18:00)
--- NOTE | 2019-01-27 19:34 | CONS ---
Assessment/Plan Assessment/Plan Hospital Course (Demo Recall) 1130 No events per report, no fevers, nad Microbiology: Blood cultures neg, MRSA swab positive Indwelling: Right chest permacath Antimicrobials: Vancomycin Chest x-ray on admission revealed moderate cardiomegaly no pleural effusion or pneumothorax. Lungs clear Physical examination: Chronically ill-appearing elderly woman who is awake in no distress. Head atraumatic normocephalic sclera nonicteric. Neck is supple. Chest rise symmetrical breath sounds diminished bases. Heart: S1-S2. Abdomen soft bowel sounds present. Extremities with bilateral lower extremities dressing intact. Assessment: 1. Clinical sepsis with generalized weakness and symptomatic hypotension on admission 2. End-stage renal disease, hemodialysis dependent 3. Diabetes 4. Hypertension 5. History of atrial fibrillation 6. Multiple ulcers Plan: Stable, continue Vanco to complete 2 weeks Consultation Date/Type/Reason Admit Date/Time Jan 23, 2019 at 07:22 Initial Consult Date Type of Consult id Requesting Provider: JACOB GONZALEZ MD Date/Time of Note DATE: 01/27/19 TIME: 19:33 Exam/Review of Systems Exam Vitals Vital Signs Date Temp Pulse Resp B/P (MAP) Pulse Ox O2 O2 Flow FiO2 Time Delivery Rate 01/27/19 98.0 99 22 110/64 96 Room Air 16:00 (79) 01/26/19 2.0 15:51 01/24/19 21 01:31 Intake and Output 01/26/19 01/26/19 01/27/19 1515:00 23:00 07:00 IntakeIntake Total 980 ml 300 ml OutputOutput Total 1400 ml BalanceBalance -420 ml 300 ml Results Result Diagram: 01/26/19 0535 01/26/19 0535 Results 24hrs Laboratory Tests Test 01/26/19 20:20 01/27/19 05:03 01/27/19 08:19 01/27/19 12:07 Bedside Glucose 159 109 106 Random Vancomycin Level 17.7 Test 01/27/19 17:50 Bedside Glucose 141 Medications Medication Current Medications IV Flush (NS 3 ml) 3 ml PER PROTOCOL IV ; Start 01/23/19 at 12:30 Ondansetron HCl (Zofran Inj) 4 mg Q6H PRN IV NAUSEA/VOMITING; Start 01/23/19 at 12:30 Acetaminophen (Tylenol Tab) 650 mg Q6H PRN PO .PAIN 1-3 OR TEMP; Start 01/23/19 at 12:30 Acetaminophen/ Hydrocodone Bitart ([place] (5/325)) 1 tab Q6H PRN PO .MOD PAIN 4- 6 Last administered on 01/27/19 11:43; Admin Dose 1 TAB; Start 01/23/19 at 12:30 Morphine Sulfate (morphine) 2 mg Q4H PRN IV .SEVERE PAIN 7-10 Last administered on 01/27/19 18:56; Admin Dose 2 MG; Start 01/23/19 at 12:30 Pantoprazole (Protonix Tab) 40 mg DAILY@06 PO Last administered on 01/26/19 05:28; Admin Dose 40 MG; Start 01/24/19 at 06:00 Vancomycin HCl (Vanco Iv Per Pharmacy) VANCOMYCIN PER PHARMACY PER PROTOCOL XX ; Start 01/23/19 at 12:30 Diagnostic Test (Pha) (Accu-Chek) 1 ea 02 XX Last administered on 01/26/19 01:22; Admin Dose 1 EA; Start 01/24/19 at 02:00 Insulin Aspart (Novolog Insulin Pen) NOVOLOG *MILD* ALGORITHM WITH MEALS BEDTI ME SC Last administered on 01/27/19 18:01; Admin Dose 1 UNIT; Start 01/23/19 at 18:00 Atorvastatin Calcium (Lipitor) 20 mg QHS PO Last administered on 01/26/19 20:21; Admin Dose 20 MG; Start 01/23/19 at 21:00 Benzonatate (Tessalon) 100 mg DAILY PRN PO COUGH; Start 01/23/19 at 14:00 Bisacodyl (Dulcolax) 5 mg BID PRN PO CONSTIPATION; Start 01/23/19 at 14:00 Docusate Sodium (Colace) 100 mg BID PRN PO CONSTIPATION; Start 01/23/19 at 14:00 Folic Acid (Folic Acid) 1 mg DAILY PO Last administered on 01/27/19 14:57; Admin Dose 1 MG; Start 01/24/19 at 09:00 Albuterol/ Ipratropium (Duoneb) 3 ml Q4H RESP THERAPY PRN NEB WHEEZING AND SOB; Start 01/23/19 at 14:00 Loperamide HCl (Imodium Cap) 2 mg DAILY PRN PO CONSTIPATION Last administered on 01/26/19 20:21; Admin Dose 2 MG; Start 01/23/19 at 14:00 Multivit/Ca Carb/ B Cmplx/FA/Prenat (Suzie-Paula) 1 tab DAILY PO Last administered on 01/27/19 14:57; Admin Dose 1 TAB; Start 01/24/19 at 09:00 Sevelamer Carbonate (Renvela) 2,400 mg WITH MEALS PO Last administered on 01/27/19 17:52; Admin Dose 2,400 MG; Start 01/23/19 at 18:00 Sucralfate (Carafate Susp) 1 gm TID PO Last administered on 01/27/19 14:57; Admin Dose 1 GM; Start 01/23/19 at 21:00 Miscellaneous Information 1 ea NOTE XX ; Start 01/23/19 at 14:30 Glucose (Glutose) 15 gm Q15M PRN PO DECREASED GLUCOSE; Start 01/23/19 at 14:30 Glucose (Glutose) 22.5 gm Q15M PRN PO DECREASED GLUCOSE; Start 01/23/19 at 14:30 Dextrose (D50w Syringe) 25 ml Q15M PRN IV DECREASED GLUCOSE; Start 01/23/19 at 14:30 Dextrose (D50w Syringe) 50 ml Q15M PRN IV DECREASED GLUCOSE; Start 01/23/19 at 14:30 Glucagon (Glucagen) 1 mg Q15M PRN IM DECREASED GLUCOSE; Start 01/23/19 at 14:30 Glucose (Glutose) 15 gm Q15M PRN BUCCAL DECREASED GLUCOSE; Start 01/23/19 at 14:30 Miscellaneous Information (Pending Santyl Order For Wound Care) This patient davis... DAILY XX Last administered on 01/27/19 08:21; Admin Dose 1 EA; Start 01/24/19 at 09:00 Zolpidem Tartrate (Ambien) 5 mg HS PRN PO INSOMNIA Last administered on 01/26/19 23:35; Admin Dose 5 MG; Start 01/23/19 at 22:30 Sodium Hypochlorite (Dakin'S (Dilute )) 1 applic BID IRR Last administered on 01/27/19 08:20; Admin Dose 1 APPLIC; Start 01/24/19 at 11:30 Collagenase (Santyl) 1 applic BID TOP Last administered on 01/27/19 08:21; Admin Dose 1 APPLIC; Start 01/24/19 at 11:00 Heparin Sodium (Porcine) (Heparin (1000 Units/ml)) 3,700 unit AFTER DIALYSIS CATHETER Last administered on 01/26/19 16:00; Admin Dose 3,700 UNIT; Start 01/24/19 at 15:30 Apixaban (Eliquis) 2.5 mg DAILY PO Last administered on 01/26/19 08:48; Admin Dose 2.5 MG; Start 01/25/19 at 09:00 Heparin Sodium (Porcine) (Heparin (1000 Units/ml)) 4,000 unit AFTER DIALYSIS CATHETER ; Start 01/25/19 at 12:30 Mupirocin (Bactroban) 1 applic BID TOP Last administered on 01/27/19 08:21; Admin Dose 1 APPLIC; Start 01/25/19 at 21:00 Albumin Human 100 ml @ 100 mls/hr WITH DIALYSIS PRN IV SBP <90 DURING DIALYSIS Last administered on 01/26/19at 15:32; Admin Dose 100 MLS/HR; Start 01/26/19 at 15:30 Vancomycin HCl 250 ml @ 125 mls/hr ONCE ONCE IVPB Last administered on 01/27/19 17:52; Admin Dose 125 MLS/HR; Start 01/27/19 at 18:00; Stop 01/27/19 at 19:59 JOHANA KULKARNI NP Jan 27, 2019 19:34
[2019-01-27] MEDS: ATORVASTATIN 20 MG TAB PO SCH (21:15)
[2019-01-27] MEDS: ZOLPIDEM 5 MG TAB PO PRN (23:42)
[2019-01-28] VITALS (20 sets, daily range): BP systolic 75–143; BP diastolic 43–83; PULSE 84–104; RESP 16–20
[2019-01-28] MEDS: morphine 2 MG INJ IV PRN ×5 (00:40→23:55)
[2019-01-28] MEDS: ACCU-CHEK XX SCH (01:31)
[2019-01-28] MEDS: PANTOPRAZOLE (EC) 40 MG TAB PO SCH (06:00)
[2019-01-28] MEDS: INSULIN ASPART [NOVOLOG] 3 ML PEN SC SCH ×4 (08:00→21:00)
[2019-01-28] MEDS: FOLIC ACID 1 MG TAB PO SCH (08:39)
[2019-01-28] MEDS: SODIUM HYPOCHLORITE (1/40) 1 APPLIC BTL IRR SCH ×2 (08:39→21:22)
[2019-01-28] MEDS: SUCRALFATE (100 MG/ML) 10ML CUP PO SCH ×3 (08:39→21:18)
[2019-01-28] MEDS: MULTIVIT/CA CARB/B CMPLX/FA TAB PO SCH (08:39)
[2019-01-28] MEDS: APIXABAN 5 MG TABLET PO SCH (08:39)
[2019-01-28] MEDS: COLLAGENASE 5 GM (UD JAR) TOP SCH ×2 (08:39→21:22)
[2019-01-28] MEDS: PENDING SANTYL ORDER FOR WOUND CARE XX SCH (09:00)
--- NOTE | 2019-01-28 10:01 | CONS ---
Assessment/Plan Assessment/Plan Hospital Course (Demo Recall) ID PROGRESS NOTE CURRENT ABX: DAY # Vanco IV + Bactroban to nares 01/28/1962801/28/19 06 24H INTERVAL SUMMARY * Currently in HD session with eyes closed resting, no fevers, VSS, NAD, without dyspnea * Indwelling: Right chest PermCATH DIAGNOSTIC IMAGING * CXR on admission: cardiomegaly no pleural effusion or pneumothorax. Lungs clear MICRO/OTHER * Microbiology: Blood cultures neg, MRSA swab positive PHYSICAL EXAMINATION: GENERAL: VSS HEENT: AT, NC, anicteric NECK: Supple, CHEST: Equal chest rise bilaterally, without dyspnea on observation HEART: Pulse RRR ABDOMEN: Soft / NT EXTREMITIES: Warm, dry / bilateral lower extremities dressing intact. SKIN: No rash, no diaphoresis ID ASSESSMENT 63 yo F admit with: 1. Clinical sepsis with generalized weakness and symptomatic hypotension on admission 2. End-stage renal disease, hemodialysis dependent 3. Diabetes 4. Hypertension 5. History of atrial fibrillation 6. Multiple ulcers (-)MRSA Nares ABX ALLERGIES: KNDA INVASIVES: PIV CURRENT ABX: DAY # ID RECOMMENDATIONS/PLAN: 1. Continue current ABX -- continue Vanco to complete 2 weeks 2. ID LICENSED PHARMACIST Colleague to f/u tomorrow. . Consultation Date/Type/Reason Admit Date/Time Jan 23, 2019 at 07:22 Initial Consult Date 01/25/19 Requesting Provider: JACOB GONZALEZ MD Date/Time of Note DATE: 01/28/19 TIME: 10:01 Exam/Review of Systems Exam Vitals Vital Signs Date Temp Pulse Resp B/P (MAP) Pulse Ox O2 O2 Flow FiO2 Time Delivery Rate 01/28/19 101 16 131/68 09:30 (89) 01/28/19 98.2 98 Room Air 08:03 01/26/19 2.0 15:51 Intake and Output 01/27/19 01/27/19 01/28/19 1515:00 23:00 07:00 IntakeIntake Total 430 ml BalanceBalance 430 ml Results Result Diagram: 01/28/19 0629 01/28/19 0629 Results 24hrs Laboratory Tests Test 01/27/19 12:07 01/27/19 17:50 01/27/19 21:22 01/28/19 06:29 Bedside Glucose 106 141 122 White Blood Count 7.1 Red Blood Count 4.00 L Hemoglobin 12.5 Hematocrit 38.5 Mean Corpuscular Volume 96.3 Mean Corpuscular 31.3 Hemoglobin Mean Corpuscular 32.5 Hemoglobin Concent Red Cell Distribution 17.8 H Width Platelet Count 141 Mean Platelet Volume 9.7 Immature Granulocytes % 0.400 Neutrophils % 73.4 Lymphocytes % 10.1 L Monocytes % 11.6 H Eosinophils % 3.4 Basophils % 1.1 Nucleated Red Blood 0.0 Cells % Immature Granulocytes # 0.030 Neutrophils # 5.2 Lymphocytes # 0.7 L Monocytes # 0.8 Eosinophils # 0.2 Basophils # 0.1 Nucleated Red Blood 0.0 Cells # Sodium Level 135 Potassium Level 5.1 Chloride Level 96 L Carbon Dioxide Level 20 L Anion Gap 19 H Blood Urea Nitrogen 39 H Creatinine 5.68 H Est Glomerular Filtrat 7 L Rate mL/min Glucose Level 120 Calcium Level 8.4 Thyroid Stimulating 1.480 Hormone (TSH) Test 01/28/19 08:37 Bedside Glucose 110 Medications Medication Current Medications IV Flush (NS 3 ml) 3 ml PER PROTOCOL IV ; Start 01/23/19 at 12:30 Ondansetron HCl (Zofran Inj) 4 mg Q6H PRN IV NAUSEA/VOMITING; Start 01/23/19 at 12:30 Acetaminophen (Tylenol Tab) 650 mg Q6H PRN PO .PAIN 1-3 OR TEMP; Start 01/23/19 at 12:30 Acetaminophen/ Hydrocodone Bitart ([place] (5/325)) 1 tab Q6H PRN PO .MOD PAIN 4- 6 Last administered on 01/27/19at 21:15; Admin Dose 1 TAB; Start 01/23/19 at 12:30 Morphine Sulfate (morphine) 2 mg Q4H PRN IV .SEVERE PAIN 7-10 Last administered on 01/28/19at 06:00; Admin Dose 2 MG; Start 01/23/19 at 12:30 Pantoprazole (Protonix Tab) 40 mg DAILY@06 PO Last administered on 01/28/19at 06:00; Admin Dose 40 MG; Start 01/24/19 at 06:00 Vancomycin HCl (Vanco Iv Per Pharmacy) VANCOMYCIN PER PHARMACY PER PROTOCOL XX ; Start 01/23/19 at 12:30 Diagnostic Test (Pha) (Accu-Chek) XX Last administered on 01/26/19 01:22; Admin Dose 1 EA; Start 01/24/19 at 02:00 Insulin Aspart (Novolog Insulin Pen) NOVOLOG *MILD* ALGORITHM WITH MEALS BEDTIME SC Last administered on 01/27/19 18:01; Admin Dose 1 UNIT; Start 01/23/19 at 18:00 Atorvastatin Calcium (Lipitor) 20 mg QHS PO Last administered on 01/27/19 21:15; Admin Dose 20 MG; Start 01/23/19 at 21:00 Benzonatate (Tessalon) 100 mg DAILY PRN PO COUGH; Start 01/23/19 at 14:00 Bisacodyl (Dulcolax) 5 mg BID PRN PO CONSTIPATION; Start 01/23/19 at 14:00 Docusate Sodium (Colace) 100 mg BID PRN PO CONSTIPATION; Start 01/23/19 at 14:00 Folic Acid (Folic Acid) 1 mg DAILY PO Last administered on 01/28/19 08:39; Admin Dose 1 MG; Start 01/24/19 at 09:00 Albuterol/ Ipratropium (Duoneb) 3 ml Q4H RESP THERAPY PRN NEB WHEEZING AND SOB; Start 01/23/19 at 14:00 Loperamide HCl (Imodium Cap) 2 mg DAILY PRN PO CONSTIPATION Last administered on 01/26/19 20:21; Admin Dose 2 MG; Start 01/23/19 at 14:00 Multivit/Ca Carb/ B Cmplx/FA/Prenat (Suzie-Paula) 1 tab DAILY PO Last administered on 01/28/19 08:39; Admin Dose 1 TAB; Start 01/24/19 at 09:00 Sevelamer Carbonate (Renvela) 2,400 mg WITH MEALS PO Last administered on 01/27/19 17:52; Admin Dose 2,400 MG; Start 01/23/19 at 18:00 Sucralfate (Carafate Susp) 1 gm TID PO Last administered on 01/28/19 08:39; Admin Dose 1 GM; Start 01/23/19 at 21:00 Miscellaneous Information 1 ea NOTE XX ; Start 01/23/19 at 14:30 Glucose (Glutose) 15 gm Q15M PRN PO DECREASED GLUCOSE; Start 01/23/19 at 14:30 Glucose (Glutose) 22.5 gm Q15M PRN PO DECREASED GLUCOSE; Start 01/23/19 at 14:30 Dextrose (D50w Syringe) 25 ml Q15M PRN IV DECREASED GLUCOSE; Start 01/23/19 at 14:30 Dextrose (D50w Syringe) 50 ml Q15M PRN IV DECREASED GLUCOSE; Start 01/23/19 at 14:30 Glucagon (Glucagen) 1 mg Q15M PRN IM DECREASED GLUCOSE; Start 01/23/19 at 14:30 Glucose (Glutose) 15 gm Q15M PRN BUCCAL DECREASED GLUCOSE; Start 01/23/19 at 14:30 Miscellaneous Information (Pending Santyl Order For Wound Care) This patient daivs... DAILY XX Last administered on 01/27/19 08:21; Admin Dose 1 EA; Start 01/24/19 at 09:00 Zolpidem Tartrate (Ambien) 5 mg HS PRN PO INSOMNIA Last administered on 23:42; Admin Dose 5 MG; Start 01/23/19 at 22:30 Sodium Hypochlorite (Dakin'S (Dilute )) 1 applic BID IRR Last administered on 01/28/19 08:39; Admin Dose 1 APPLIC; Start 01/24/19 at 11:30 Collagenase (Santyl) 1 applic BID TOP Last administered on 01/28/19 08:39; Admin Dose 1 APPLIC; Start 01/24/19 at 11:00 Heparin Sodium (Porcine) (Heparin (1000 Units/ml)) 3,700 unit AFTER DIALYSIS CATHETER Last administered on 01/26/19 16:00; Admin Dose 3,700 UNIT; Start 01/24/19 at 15:30 Apixaban (Eliquis) 2.5 mg DAILY PO Last administered on 01/28/19 08:39; Admin Dose 2.5 MG; Start 01/25/19 at 09:00 Heparin Sodium (Porcine) (Heparin (1000 Units/ml)) 4,000 unit AFTER DIALYSIS CATHETER ; Start 01/25/19 at 12:30 Mupirocin (Bactroban) 1 applic BID TOP Last administered on 01/27/19 21:16; Adm in Dose 1 APPLIC; Start 01/25/19 at 21:00 Albumin Human 100 ml @ 100 mls/hr WITH DIALYSIS PRN IV SBP <90 DURING DIALYSIS Last administered on 01/26/19at 15:32; Admin Dose 100 MLS/HR; Start 01/26/19 at 15:30 FRANCA DE LA FUENTE NP Jan 28, 2019 10:01
[2019-01-28] MEDS: SEVELAMER CARBONATE 800 MG TABLET PO SCH ×3 (10:48→17:31)
[2019-01-28] MEDS: MUPIROCIN 2% 22 GM OINT TOP SCH ×2 (10:48→21:18)
--- NOTE | 2019-01-28 11:43 | PN ---
Date/Time of Note Date/Time of Note DATE: 01/28/19 TIME: 11:43 Assessment/Plan VTE Prophylaxis Risk score (from Nsg)>0 risk: 6 SCD applied (from Ns): No SCD contraindicated: other (wounds) Pharmacological prophylaxis: apixaban Lines/Catheters IV Catheter Type (from Nrs): Saline Lock Assessment/Plan Hospital Course 1. Dizziness and likely secondary to hypotension, resolved 2. Multiple diabetic foot ulcers, especially on the right lower extremity, left lower extremity and also on the 3rd index finger on the left hand. 3. Status post fall with generalized pain likely secondary to hypotension, dizziness. 4. History of atrial fibrillation, on Eliquiz. 5. Hypertension, however, currently normotensive. 6. Diabetes with complications of diabetic nephropathy, neuropathy and ret inopathy. 7. End-stage renal disease on hemodialysis Wednesday, Wednesday, Wednesday. 8. Hypercholesterolemia. 9. History of peripheral vascular disease. 10. History of depression, anxiety. 11. History of gastritis. 12. History of gastroparesis. 13. History of multiple AV graft revision, thrombectomy and status post banding of the left upper extremity fistula. 14. Obesity Assessment/Plan -Angiogram done per dr Lemus> no interventions - vanco per ID -HD today -Surgery consult for possible debridement> No intervention -Pain control -fu wound care -hold BP meds -GI prophylaxis -DVT prophylaxis eliquiz Result Diagram: 01/28/19 0629 01/28/19 0629 Results 24hrs Laboratory Tests Test 01/27/19 12:07 01/27/19 17:50 01/27/19 21:22 01/28/19 06:29 Bedside Glucose 106 141 122 White Blood Count 7.1 Red Blood Count 4.00 L Hemoglobin 12.5 Hematocrit 38.5 Mean Corpuscular Volume 96.3 Mean Corpuscular 31.3 Hemoglobin Mean Corpuscular 32.5 Hemoglobin Concent Red Cell Distribution 17.8 H Width Platelet Count 141 Mean Platelet Volume 9.7 Immature Granulocytes % 0.400 Neutrophils % 73.4 Lymphocytes % 10.1 L Monocytes % 11.6 H Eosinophils % 3.4 Basophils % 1.1 Nucleated Red Blood 0.0 Cells % Immature Granulocytes # 0.030 Neutrophils # 5.2 Lymphocytes # 0.7 L Monocytes # 0.8 Eosinophils # 0.2 Basophils # 0.1 Nucleated Red Blood 0.0 Cells # Sodium Level 135 Potassium Level 5.1 Chloride Level 96 L Carbon Dioxide Level 20 L Anion Gap 19 H Blood Urea Nitrogen 39 H Creatinine 5.68 H Est Glomerular Filtrat 7 L Rate mL/min Glucose Level 120 Calcium Level 8.4 Thyroid Stimulating 1.480 Hormone (TSH) Test 01/28/19 08:37 Bedside Glucose 110 Subjective 24 Hr Interval Summary Free Text/Dictation pt was given lorazepam, she is sleeping Exam/Review of Systems Exam Vitals Vital Signs Date Temp Pulse Resp B/P (MAP) Pulse Ox O2 O2 Flow FiO2 Time Delivery Rate 01/28/19 101 16 131/68 09:30 (89) 01/28/19 98.2 98 Room Air 08:03 01/26/19 2.0 15:51 Intake and Output 01/27/19 01/27/19 01/28/19 1515:00 23:00 07:00 IntakeIntake Total 430 ml BalanceBalance 430 ml Exam right chest Permcath Respiratory: clear to auscultation Cardiovascular: regular rate and rhythm Gastrointestinal: soft Musculoskeletal: muscle weakness, swelling, other (bilaterl dressing with lower extremities discoloration) Results Results 24hrs Laboratory Tests Test 01/27/19 12:07 01/27/19 17:50 01/27/19 21:22 01/28/19 06:29 Bedside Glucose 106 141 122 White Blood Count 7.1 Red Blood Count 4.00 L Hemoglobin 12.5 Hematocrit 38.5 Mean Corpuscular Volume 96.3 Mean Corpuscular 31.3 Hemoglobin Mean Corpuscular 32.5 Hemoglobin Concent Red Cell Distribution 17.8 H Width Platelet Count 141 Mean Platelet Volume 9.7 Immature Granulocytes % 0.400 Neutrophils % 73.4 Lymphocytes % 10.1 L Monocytes % 11.6 H Eosinophils % 3.4 Basophils % 1.1 Nucleated Red Blood 0.0 Cells % Immature Granulocytes # 0.030 Neutrophils # 5.2 Lymphocytes # 0.7 L Monocytes # 0.8 Eosinophils # 0.2 Basophils # 0.1 Nucleated Red Blood 0.0 Cells # Sodium Level 135 Potassium Level 5.1 Chloride Level 96 L Carbon Dioxide Level 20 L Anion Gap 19 H Blood Urea Nitrogen 39 H Creatinine 5.68 H Est Glomerular Filtrat 7 L Rate mL/min Glucose Level 120 Calcium Level 8.4 Thyroid Stimulating 1.480 Hormone (TSH) Test 01/28/19 08:37 Bedside Glucose 110 Medications Medication Current Medications IV Flush (NS 3 ml) 3 ml PER PROTOCOL IV ; Start 01/23/19 at 12:30 Ondansetron HCl (Zofran Inj) 4 mg Q6H PRN IV NAUSEA/VOMITING; Start 01/23/19 at 12:30 Acetaminophen (Tylenol Tab) 650 mg Q6H PRN PO .PAIN 1-3 OR TEMP; Start 01/23/19 at 12:30 Acetaminophen/ Hydrocodone Bitart ([place] (5/325)) 1 tab Q6H PRN PO .MOD PAIN 4- 6 Last administered on 01/27/19at 21:15; Admin Dose 1 TAB; Start 01/23/19 at 12:30 Morphine Sulfate (morphine) 2 mg Q4H PRN IV .SEVERE PAIN 7-10 Last administered on 01/28/19at 11:26; Admin Dose 2 MG; Start 01/23/19 at 12:30 Pantoprazole (Protonix Tab) 40 mg DAILY@06 PO Last administered on 01/28/19at 06:00; Admin Dose 40 MG; Start 01/24/19 at 06:00 Vancomycin HCl (Vanco Iv Per Pharmacy) VANCOMYCIN PER PHARMACY PER PROTOCOL XX ; Start 01/23/19 at 12:30 Diagnostic Test (Pha) (Accu-Chek) 1 ea 02 XX Last administered on 01/26/19at 01:22; Admin Dose 1 EA; Start 01/24/19 at 02:00 Insulin Aspart (Novolog Insulin Pen) NOVOLOG *MILD* ALGORITHM WITH MEALS BEDTIME SC Last administered on 01/27/19at 18:01; Admin Dose 1 UNIT; Start 01/23/19 at 18:00 Atorvastatin Calcium (Lipitor) 20 mg QHS PO Last administered on 01/27/19at 21:15; Admin Dose 20 MG; Start 01/23/19 at 21:00 Benzonatate (Tessalon) 100 mg DAILY PRN PO COUGH; Start 01/23/19 at 14:00 Bisacodyl (Dulcolax) 5 mg BID PRN PO CONSTIPATION; Start 01/23/19 at 14:00 Docusate Sodium (Colace) 100 mg BID PRN PO CONSTIPATION; Start 01/23/19 at 14:00 Folic Acid (Folic Acid) 1 mg DAILY PO Last administered on 01/28/19 08:39; Adm in Dose 1 MG; Start 01/24/19 at 09:00 Albuterol/ Ipratropium (Duoneb) 3 ml Q4H RESP THERAPY PRN NEB WHEEZING AND SOB; Start 01/23/19 at 14:00 Loperamide HCl (Imodium Cap) 2 mg DAILY PRN PO CONSTIPATION Last administered on 01/26/19 20:21; Admin Dose 2 MG; Start 01/23/19 at 14:00 Multivit/Ca Carb/ B Cmplx/FA/Prenat (Suzie-Paula) 1 tab DAILY PO Last administered on 01/28/19 08:39; Admin Dose 1 TAB; Start 01/24/19 at 09:00 Sevelamer Carbonate (Renvela) 2,400 mg WITH MEALS PO Last administered on 01/28/19 10:48; Admin Dose 2,400 MG; Start 01/23/19 at 18:00 Sucralfate (Carafate Susp) 1 gm TID PO Last administered on 01/28/19 08:39; Admin Dose 1 GM; Start 01/23/19 at 21:00 Miscellaneous Information 1 ea NOTE XX ; Start 01/23/19 at 14:30 Glucose (Glutose) 15 gm Q15M PRN PO DECREASED GLUCOSE; Start 01/23/19 at 14:30 Glucose (Glutose) 22.5 gm Q15M PRN PO DECREASED GLUCOSE; Start 01/23/19 at 14:30 Dextrose (D50w Syringe) 25 ml Q15M PRN IV DECREASED GLUCOSE; Start 01/23/19 at 14:30 Dextrose (D50w Syringe) 50 ml Q15M PRN IV DECREASED GLUCOSE; Start 01/23/19 at 14:30 Glucagon (Glucagen) 1 mg Q15M PRN IM DECREASED GLUCOSE; Start 01/23/19 at 14:30 Glucose (Glutose) 15 gm Q15M PRN BUCCAL DECREASED GLUCOSE; Start 01/23/19 at 14:30 Miscellaneous Information (Pending [facility] Order For Wound Care) This patient davis... DAILY XX Last administered on 01/27/19 08:21; Admin Dose 1 EA; Start at 09:00 Zolpidem Tartrate (Ambien) 5 mg HS PRN PO INSOMNIA Last administered on 01/27/19 23:42; Admin Dose 5 MG; Start 01/23/19 at 22:30 Sodium Hypochlorite (Dakin'S (Dilute )) 1 applic BID IRR Last administered on 01/28/19 08:39; Admin Dose 1 APPLIC; Start 01/24/19 at 11:30 Collagenase (Santyl) 1 applic BID TOP Last administered on 01/28/19 08:39; Admin Dose 1 APPLIC; Start 01/24/19 at 11:00 Heparin Sodium (Porcine) (Heparin (1000 Units/ml)) 3,700 unit AFTER DIALYSIS CATHETER Last administered on 01/26/19 16:00; Admin Dose 3,700 UNIT; Start 01/24/19 at 15:30 Apixaban (Eliquis) 2.5 mg DAILY PO Last administered on 01/28/19 08:39; Admin Dose 2.5 MG; Start 01/25/19 at 09:00 Heparin Sodium (Porcine) (Heparin (1000 Units/ml)) 4,000 unit AFTER DIALYSIS CATHETER ; Start 01/25/19 at 12:30 Mupirocin (Bactroban) 1 applic BID TOP Last administered on 01/28/19 10:48; Admin Dose 1 APPLIC; Start 01/25/19 at 21:00 Albumin Human 100 ml @ 100 mls/hr WITH DIALYSIS PRN IV SBP <90 DURING DIALYSIS Last administered on 01/26/19 15:32; Admin Dose 100 MLS/HR; Start 01/26/19 at 15:30 KENNY TERRAZAS Jan 28, 2019 11:43
[2019-01-28] MEDS: ALBUMIN HUMAN 25% 100 ML IV PRN (12:29)
[2019-01-28] MEDS: HEPARIN 1000 UNITS/ML 10 ML INJ CATHETER SCH (15:16)
--- NOTE | 2019-01-28 18:15 | PN ---
Date/Time of Note Date/Time of Note DATE: 01/28/19 TIME: 18:13 Assessment/Plan Lines/Catheters IV [facility]from [facility]): Saline Lock Assessment/Plan Chief Complaint/Hosp Course 1. Multiple wounds: With history of diabetes, PVD and obesity; status post abdominal aortogram, bilateral extremity runoff and percutaneous angioplasty of right posterior tibial artery severe stenosis -Continue local care, same treatment -frequent turning and off-loading -low air loss mattress -vitamin c -short term zinc -optimize nutrition -Consider ortho for interdigit wound with exposed tendon -Podiatry/vascular for feet wounds -Vascular optimization per vascular 2. Hypotension: Improved -Hemodynamic optimization -Judicious fluids 3. ESRD with HD: HD today -Limit nephrotoxic meds -Renally dose meds -HD per renal 4. Atherosclerotic disease, PVD -Vascular optimization> per vascular 5. Status post fall: No fractures noted on imaging -Fall precautions -Hemodynamic optimization 6. Diabetes -Glucose control 7. Obesity BMI: 33 -diet and exercise optimization -encourage weight loss Thank you. Patient seen and examined in collaboration with Dr. Haseeb Ross. Subjective 24 Hr Interval Summary HD today. No acute discomfort. No fevers, chills, sob, congested cough, cp, palpitations, davis, dizziness, nausea, vomiting, diarrhea, dysuria. Exam/Review of Systems Vital Signs Vitals Vital Signs Date Temp Pulse Resp B/P (MAP) Pulse Ox O2 O2 Flow FiO2 Time Delivery Rate 01/28/19 95 14:57 01/28/19 98.5 18 143/59 94 Room Air 14:41 (87) 01/26/19 2.0 15:51 Intake and Output 01/27/19 01/27/19 01/28/19 1414:59 22:59 06:59 IntakeIntake Total 430 ml BalanceBalance 430 ml Exam Free Text/Dictation Constitutional: alert, oriented, other (Chronically ill-appearing) Psych: nl mood/affect Head: normocephalic, atraumatic Eyes: nl conjunctiva, EOMI, nl lids, nl sclera ENMT: nl external ears & nose, nl lips & teeth, mucosa pink and moist Neck: supple, non-tender; No nuchal rigidity Respiratory: normal air movement; No congested cough, No labored breathing Cardiovascular: regular rate and rhythm, nl pulses; No edema Gastrointestinal: soft, non-tender; No distended, No tender Genitourinary - Female: No nl external genitalia Musculoskeletal: other (Bilateral lower extremity discoloration; right toe amputation); No joint tenderness Extremities: edema (2+ pitting) Neurological: nl mental status, nl speech; No nl strength (Generalized weakness) Skin: other (Sacrum/buttock: no periwound erythema/drainage/malodor; right hand wound (interdigit, between index and middle): Open wound with tendon exposed and minimal hyper granulation, scant drainage; middle finger: Eschar) Results Result Diagram: 01/28/19 0629 01/28/19 0629 DOTTIE CHEEMA NP Jan 28, 2019 18:15
[2019-01-28] MEDS: ATORVASTATIN 20 MG TAB PO SCH (21:18)
[2019-01-28] MEDS: ZOLPIDEM 5 MG TAB PO PRN (23:18)
[2019-01-29 01:20] VITALS: BP 123/68; PULSE 104; RESP 18
[2019-01-29] MEDS: ACCU-CHEK XX SCH (02:00)
[2019-01-29] MEDS: morphine 2 MG INJ IV PRN (04:09)
[2019-01-29] MEDS: HYDROCODONE/APAP (5/325) TAB PO PRN (06:03)
[2019-01-29] MEDS: PANTOPRAZOLE (EC) 40 MG TAB PO SCH (06:03)
[2019-01-29 07:13] VITALS: BP 113/59; PULSE 86; RESP 18
[2019-01-29] MEDS: INSULIN ASPART [NOVOLOG] 3 ML PEN SC SCH ×3 (08:00→17:17)
[2019-01-29] MEDS: PENDING SANTYL ORDER FOR WOUND CARE XX SCH (09:00)
--- NOTE | 2019-01-29 09:22 | DS ---
Date/Time of Note Date/Time of Note DATE: 01/29/19 TIME: 09:21 Discharge Summary Admission/Discharge Info Admit Date/Time Jan 23, 2019 at 07:22 Discharge Date/Time Discharge Diagnosis Sepsis Patient Condition: Stable Consults Dr Webb, ID, Dr Lemus Procedures none Hospital Course 1. Dizziness and likely secondary to hypotension, resolved 2. Multiple diabetic foot ulcers, especially on the right lower extremity, left lower extremity and also on the 3rd index finger on the left hand. 3. Status post fall with generalized pain likely secondary to hypotension, dizziness. 4. History of atrial fibrillation, on Eliquiz. 5. Hypertension, however, currently normotensive. 6. Diabetes with complications of diabetic nephropathy, neuropathy and retinopathy. 7. End-stage renal disease on hemodialysis Wednesday, Wednesday, Wednesday. 8. Hypercholesterolemia. 9. History of peripheral vascular disease. 10. History of depression, anxiety. 11. History of gastritis. 12. History of gastroparesis. 13. History of multiple AV graft revision, thrombectomy and status post banding of the left upper extremity fistula. 14. Obesity Home Meds Active Scripts Hydrocodone/Acetaminophen ([place] 10-325 Tablet) 1 Each Tablet, 1 TAB PO Q6H PRN for PAIN, #7 TAB Prov:LINCOLN LEW MD 10/19/18 Reported Medications Insulin Aspart* (Novolog Insulin Pen*) 100 Unit/Ml Soln, 0-5 SC .SLIDING SCALE AC, EA 11/17/18 Sucralfate* (Carafate*) 1 Gm/10 Ml Susp, 1 GM PO TID, EA 11/17/18 Hydromorphone Hcl* (Dilaudid*) 4 Mg Tablet, 4 MG PO Q6H PRN for PAIN, TAB 11/17/18 Hydrocodone/Acetaminophen ([place] 5-325 Tablet) 1 Each Tablet, 1 EACH PO Q6 PRN for WHEEZING AND SOB, TAB 11/17/18 Ondansetron Hcl* (Ondansetron Hcl*) 4 Mg Tablet, 4 MG PO Q6H PRN for NAUSEA AND/OR VOMITING, TAB 11/17/18 Sevelamer Hcl* (Renagel*) 800 Mg Tablet, 2400 MG PO WITH MEALS, TAB 11/17/18 Gabapentin* (Gabapentin*) 300 Mg Capsule, 300 MG PO TID, #90 CAP 11/17/18 Glucagon,Human Recombinant (Glucagen) 1 Mg Vial, 1 MG IJ DAILY for LOW GLUCOSE, VIAL 11/17/18 Loperamide Hcl* (Loperamide Hcl*) 2 Mg Cap, 2 MG PO DAILY PRN for CONSTIPATION, CAP 11/17/18 Ipratropium-Albuterol (Ipratropium-Albuterol) 0.5-3 Mg/3 Ml Ampul.neb, 3 ML INHALATION Q4 PRN for WHEEZING AND SOB, #30 VIAL 11/17/18 Acetaminophen* (Acetaminophen*) 500 MG Extra Strength Tablet, 500 MG PO Q4H PRN for MILD PAIN LEVEL 1-3, TAB 11/17/18 Lubiprostone* (Amitiza*) 24 Mcg Capsule, 24 MCG PO BID, #60 CAP 11/17/18 Famotidine* (Famotidine*) 20 Mg Tablet, 20 MG PO BID, #60 TAB 11/17/18 Docusate Sodium* (Colace*) 100 Mg Capsule, 100 MG PO BID PRN for CONSTIPATION, #60 CAP 11/17/18 Temazepam* (Restoril*) 30 Mg Capsule, 30 MG PO HS PRN for INSOMNIA, CAP 11/17/18 Benzonatate* (Benzonatate*) 100 Mg Capsule, 100 MG PO DAILY PRN for COUGH, CAP 11/17/18 Metoprolol Tartrate* (Lopressor*) 50 Mg Tab, 50 MG PO BID, #60 TAB 11/17/18 Atorvastatin Calcium* (Atorvastatin Calcium*) 20 Mg Tablet, 20 MG PO QHS, #30 TAB 11/17/18 Losartan Potassium* (Losartan Potassium*) 25 Mg Tablet, 25 MG PO DAILY, TAB 11/17/18 Multivit/Ca Carb/B Cmplx/Fa* (Suzie-Paula*) 1 Tab Tab, 1 TAB PO DAILY, TAB 11/17/18 Apixaban* (Eliquis*) 2.5 Mg Tablet, 2.5 MG PO DAILY, TAB 11/17/18 Folic Acid* (Folic Acid*) 1 Mg Tablet, 1 MG PO DAILY, TAB 07/14/18 Bisacodyl* (Dulcolax*) 5 Mg Tablet.dr, 5 MG PO BID PRN for CONSTIPATION, TAB 07/14/18 Polyethylene Glycol* (Miralax*) 17 Gm Powd.pack, 17 GM PO DAILY PRN for CONSTIPATION, #30 PACKET 07/14/18 Bisacodyl (Laxative Suppository) 10 Mg Supp.rect, 10 MG RC DAILY for SEVERE CONSTIPATION, SUPP.RECT 07/14/18 Tramadol Hcl* (Ultram*) 50 Mg Tablet, 50 MG PO TID PRN for PAIN, TAB 06/07/18 Furosemide* (Furosemide*) 20 Mg Tablet, 20 MG PO DAILY, #60 TAB 06/07/18 Follow-up Plan SNF Primary Care Provider Gianluca Casas MD Time spent on discharge: < 30 minutes Pending Labs Laboratory Tests Test 01/28/19 13:04 01/28/19 17:24 01/28/19 21:17 01/29/19 06:29 Bedside 133 152 132 Glucose mg/dL (70-220) mg/dL (70-220) mg/dL (70-220) White Blood 6.2 Count 10^3/ul (4.8-1 0.8) Red Blood 3.82 Count 10^6/ul (4.20- 5.40) Hemoglobin 12.2 g/dl (12.0-16. 0) Hematocrit 37.2 % (37.0-47.0) Mean 97.4 Corpuscular fl (82.0-101.0 Volume ) Mean 31.9 Corpuscular pg (29.0-33.0) Hemoglobin Mean 32.8 Corpuscular g/dl (32.0-37. Hemoglobin Conc 0) ent Red Cell 18.0 Distribution % (11.5-14.5) Width Platelet Count 120 10^3/UL (140-4 15) Mean Platelet 10.3 Volume fl (7.4-10.4) Immature 0.300 Granulocytes % % (0.001-0.429 ) Neutrophils % 76.1 % (39.0-77.0) Lymphocytes % 7.4 % (15.0-51.0) Monocytes % 11.6 % (0.0-11.0) Eosinophils % 3.6 % (0.0-7.0) Basophils % 1.0 % (0.0-2.0) Nucleated Red 0.0 Blood Cells % /100WBC (0.0-0 .0) Immature 0.020 Granulocytes # 10^3/ul (0.0-0 .031) Neutrophils # 4.7 10^3/ul (1.6-7 .5) Lymphocytes # 0.5 10^3/ul (0.8-2 .9) Monocytes # 0.7 10^3/ul (0.3-0 .9) Eosinophils # 0.2 10^3/ul (0.0-0 .5) Basophils # 0.1 10^3/ul (0.0-0 .1) Nucleated Red 0.0 Blood Cells # 10^3/ul (0.0-0 .0) Sodium Level 137 mmol/L (135-14 4) Potassium 4.8 Level mmol/L (3.5-5. 1) Chloride Level 100 mmol/L (97-110 ) Carbon Dioxide 22 Level mmol/L (21-31) Anion Gap 15 (5-13) Blood Urea 28 Nitrogen mg/dl (7-20) Creatinine 4.47 mg/dl (0.44-1. 00) Est Glomerular 10 Filtrat mL/min (>60) Rate mL/min Glucose Level 118 mg/dl (70-220) Hemoglobin A1c 6.0 % (0-5.9) Calcium Level 8.2 mg/dl (8.4-10. 2) Test 01/29/19 08:24 Bedside 104 Glucose mg/dL (70-220) KENNY TERRAZAS 3, 2019 09:22
[2019-01-29] MEDS: FOLIC ACID 1 MG TAB PO SCH (09:40)
[2019-01-29] MEDS: SUCRALFATE (100 MG/ML) 10ML CUP PO SCH ×2 (09:40→12:48)
[2019-01-29] MEDS: MULTIVIT/CA CARB/B CMPLX/FA TAB PO SCH (09:40)
[2019-01-29] MEDS: APIXABAN 5 MG TABLET PO SCH (09:40)
[2019-01-29] MEDS: COLLAGENASE 5 GM (UD JAR) TOP SCH (09:40)
[2019-01-29] MEDS: SEVELAMER CARBONATE 800 MG TABLET PO SCH ×3 (09:42→17:21)
[2019-01-29] MEDS: SODIUM HYPOCHLORITE (1/40) 1 APPLIC BTL IRR SCH (09:46)
[2019-01-29] MEDS: MUPIROCIN 2% 22 GM OINT TOP SCH (09:47)
[2019-01-29 13:54] VITALS: BP 122/58; PULSE 103; RESP 18
--- NOTE | 2019-01-29 16:46 | CONS ---
Assessment/Plan Assessment/Plan Hospital Course (Demo Recall) Looks comfortable, no fevers Microbiology: Blood cultures neg, MRSA swab positive Indwelling: Right chest permacath Antimicrobials: Vancomycin Chest x-ray on admission revealed moderate cardiomegaly no pleural effusion or pneumothorax. Lungs clear Physical examination: Chronically ill-appearing elderly woman who is awake in no distress. Head atraumatic normocephalic sclera nonicteric. Neck is supple. Chest rise symmetrical breath sounds diminished bases. Heart: S1-S2. Abdomen soft bowel sounds present. Extremities with bilateral lower extremities dressing intact. Assessment: 1. Clinical sepsis with generalized weakness and symptomatic hypotension on admission 2. End-stage renal disease, hemodialysis dependent 3. Diabetes 4. Hypertension 5. History of atrial fibrillation 6. Multiple ulcers Plan: Stable, continue Vanco and topical Bactroban for 7 more days Consultation Date/Type/Reason Admit Date/Time Jan 23, 2019 at 07:22 Initial Consult Date Type of Consult id Requesting Provider: JACOB GONZALEZ MD Date/Time of Note DATE: 01/29/19 TIME: 16:46 Exam/Review of Systems Exam Vitals Vital Signs Date Temp Pulse Resp B/P (MAP) Pulse Ox O2 O2 Flow FiO2 Time Delivery Rate 01/29/19 98.4 103 18 122/58 94 Room Air 13:54 (79) 01/26/19 2.0 15:51 Intake and Output 01/28/19 01/28/19 01/29/19 1515:00 23:00 07:00 IntakeIntake Total 800 ml OutputOutput Total 1800 ml BalanceBalance -1800 ml 800 ml Results Result Diagram: 01/29/19 0629 01/29/19 0629 Results 24hrs Laboratory Tests Test 01/28/19 17:24 01/28/19 21:17 01/29/19 06:29 01/29/19 08:24 Bedside Glucose 152 132 104 White Blood Count 6.2 Red Blood Count 3.82 L Hemoglobin 12.2 Hematocrit 37.2 Mean Corpuscular Volume 97.4 Mean Corpuscular 31.9 Hemoglobin Mean Corpuscular 32.8 Hemoglobin Concent Red Cell Distribution 18.0 H Width Platelet Count 120 L Mean Platelet Volume 10.3 Immature Granulocytes % 0.300 Neutrophils % 76.1 Lymphocytes % 7.4 L Monocytes % 11.6 H Eosinophils % 3.6 Basophils % 1.0 Nucleated Red Blood 0.0 Cells % Immature Granulocytes # 0.020 Neutrophils # 4.7 Lymphocytes # 0.5 L Monocytes # 0.7 Eosinophils # 0.2 Basophils # 0.1 Nucleated Red Blood 0.0 Cells # Sodium Level 137 Potassium Level 4.8 Chloride Level 100 Carbon Dioxide Level 22 Anion Gap 15 H Blood Urea Nitrogen 28 #H Creatinine 4.47 #H Est Glomerular Filtrat 10 L Rate mL/min Glucose Level 118 Hemoglobin A1c 6.0 H Calcium Level 8.2 L Test 01/29/19 12:46 Bedside Glucose 170 Medications Medication Current Medications IV Flush (NS 3 ml) 3 ml PER PROTOCOL IV ; Start 01/23/19 at 12:30 Ondansetron HCl (Zofran Inj) 4 mg Q6H PRN IV NAUSEA/VOMITING; Start 01/23/19 at 12:30 Acetaminophen (Tylenol Tab) 650 mg Q6H PRN PO .PAIN 1-3 OR TEMP; Start 01/23/19 at 12:30 Acetaminophen/ Hydrocodone Bitart ([place] (5/325)) 1 tab Q6H PRN PO .MOD PAIN 4- 6 Last administered on 01/29/19 06:03; Admin Dose 1 TAB; Start 01/23/19 at 12:30 Morphine Sulfate (morphine) 2 mg Q4H PRN IV .SEVERE PAIN 7-10 Last administered on 01/29/19 04:09; Admin Dose 2 MG; Start 01/23/19 at 12:30 Pantoprazole (Protonix Tab) 40 mg DAILY@06 PO Last administered on 01/29/19 06:03; Admin Dose 40 MG; Start 01/24/19 at 06:00 Vancomycin HCl (Vanco Iv Per Pharmacy) VANCOMYCIN PER PHARMACY PER PROTOCOL XX ; Start 01/23/19 at 12:30 Diagnostic Test (Pha) (Accu-Chek) 1 ea 02 XX Last administered on 01/26/19 01:22; Admin Dose 1 EA; Start 01/24/19 at 02:00 Insulin Aspart (Novolog Insulin Pen) NOVOLOG *MILD* ALGORITHM WITH MEALS BEDTIME SC Last administered on 01/29/19 12:58; Admin Dose 1 UNIT; Start 01/23/19 at 18:00 Atorvastatin Calcium (Lipitor) 20 mg QHS PO Last administered on 3/2/19at 21:18; Admin Dose 20 MG; Start 01/23/19 at 21:00 Benzonatate (Tessalon) 100 mg DAILY PRN PO COUGH; Start 01/23/19 at 14:00 Bisacodyl (Dulcolax) 5 mg BID PRN PO CONSTIPATION Last administered on 01/29/19 12:48; Admin Dose 5 MG; Start 01/23/19 at 14:00 Docusate Sodium (Colace) 100 mg BID PRN PO CONSTIPATION; Start 01/23/19 at 14:00 Folic Acid (Folic Acid) 1 mg DAILY PO Last administered on 01/29/19 09:40; Admin Dose 1 MG; Start 01/24/19 at 09:00 Albuterol/ Ipratropium (Duoneb) 3 ml Q4H RESP THERAPY PRN NEB WHEEZING AND SOB; Start 01/23/19 at 14:00 Loperamide HCl (Imodium Cap) 2 mg DAILY PRN PO CONSTIPATION Last administered on 01/26/19 20:21; Admin Dose 2 MG; Start 01/23/19 at 14:00 Multivit/Ca Carb/ B Cmplx/FA/Prenat (Suzie-Paula) 1 tab DAILY PO Last administered on 01/29/19 09:40; Admin Dose 1 TAB; Start 01/24/19 at 09:00 Sevelamer Carbonate (Renvela) 2,400 mg WITH MEALS PO Last administered on 01/29/19 12:48; Admin Dose 2,400 MG; Start 01/23/19 at 18:00 Sucralfate (Carafate Susp) 1 gm TID PO Last administered on 01/29/19 12:48; Admin Dose 1 GM; Start 01/23/19 at 21:00 Miscellaneous Information 1 ea NOTE XX ; Start 01/23/19 at 14:30 Glucose (Glutose) 15 gm Q15M PRN PO DECREASED GLUCOSE; Start 01/23/19 at 14:30 Glucose (Glutose) 22.5 gm Q15M PRN PO DECREASED GLUCOSE; Start 01/23/19 at 14:30 Dextrose (D50w Syringe) 25 ml Q15M PRN IV DECREASED GLUCOSE; Start 01/23/19 at 14:30 Dextrose (D50w Syringe) 50 ml Q15M PRN IV DECREASED GLUCOSE; Start 01/23/19 at 14:30 Glucagon (Glucagen) 1 mg Q15M PRN IM DECREASED GLUCOSE; Start 01/23/19 at 14:30 Glucose (Glutose) 15 gm Q15M PRN BUCCAL DECREASED GLUCOSE; Start 01/23/19 at 14:30 Miscellaneous Information (Pending Santyl Order For Wound Care) This patient davis... DAILY XX Last administered on 01/27/19 08:21; Admin Dose 1 EA; Start 01/24/19 at 09:00 Zolpidem Tartrate (Ambien) 5 mg HS PRN PO INSOMNIA Last administered on 01/28/19 23:18; Admin Dose 5 MG; Start 01/23/19 at 22:30 Sodium Hypochlorite (Dakin'S (Dilute )) 1 applic BID IRR Last administered on 01/29/19 09:46; Admin Dose 1 APPLIC; Start 01/24/19 at 11:30 Collagenase (Santyl) 1 applic BID TOP Last administered on 01/29/19 09:40; Admin Dose 1 APPLIC; Start 01/24/19 at 11:00 Apixaban (Eliquis) 2.5 mg DAILY PO Last administered on 01/29/19 09:40; Admin Dose 2.5 MG; Start 01/25/19 at 09:00 Heparin Sodium (Porcine) (Heparin (1000 Units/ml)) 4,000 unit AFTER DIALYSIS CATHETER ; Start 01/25/19 at 12:30 Mupirocin (Bactroban) 1 applic BID TOP Last administered on 01/29/19 09:47; Admin Dose 1 APPLIC; Start 01/25/19 at 21:00 Albumin Human 100 ml @ 100 mls/hr WITH DIALYSIS PRN IV SBP <90 DURING DIALYSIS Last administered on 01/28/19 12:29; Admin Dose 100 MLS/HR; Start 01/26/19 at 15:30 Miscellaneous Information (*Rx Drug Level Order Reminder*) RANDOM VANCO 01/30 AT 0500 ONCE ONCE XX ; Start 01/30/19 at 05:00; Stop 01/30/19 at 05:01 JOHANA KULKARNI NP Jan 29, 2019 16:46
== END 2019-01-29 18:54 | DRG 853 ==
LOC: E/R 05:42 → 6WM 07:22 → EDBEDREQ 07:28 → 6WM 10:10 → 5EC 01-28 00:13
PROVIDERS: ADMIT Internal Medicine Nephrology; ATTEND Internal Medicine Nephrology
PROC: 5A1D70Z Performance of Urinary Filtration, Intermittent, Less than 6 Hours Per Day (ICD-10-PCS; 2019-01-24)
PROC: 047R3ZZ Dilation of Right Posterior Tibial Artery, Percutaneous Approach (ICD-10-PCS; principal; 2019-01-27 11:30)
DX: A41.9 Sepsis, unspecified organism (principal); L89.323 Pressure ulcer of left buttock, stage 3; N18.6 End stage renal disease; I12.0 Hypertensive chronic kidney disease with stage 5 chronic kidney disease or end stage renal disease; L97.429 Non-pressure chronic ulcer of left heel and midfoot with unspecified severity; L97.419 Non-pressure chronic ulcer of right heel and midfoot with unspecified severity; L97.829 Non-pressure chronic ulcer of other part of left lower leg with unspecified severity; E11.22 Type 2 diabetes mellitus with diabetic chronic kidney disease; I70.234 Atherosclerosis of native arteries of right leg with ulceration of heel and midfoot; Z89.411 Acquired absence of right great toe; I95.9 Hypotension, unspecified; Z99.2 Dependence on renal dialysis; W19.XXXA Unspecified fall, initial encounter; I48.91 Unspecified atrial fibrillation; E11.21 Type 2 diabetes mellitus with diabetic nephropathy; E11.319 Type 2 diabetes mellitus with unspecified diabetic retinopathy without macular edema; I73.9 Peripheral vascular disease, unspecified; E78.00 Pure hypercholesterolemia, unspecified; F32.9 Major depressive disorder, single episode, unspecified; F41.9 Anxiety disorder, unspecified; Z90.49 Acquired absence of other specified parts of digestive tract; E11.622 Type 2 diabetes mellitus with other skin ulcer; E11.621 Type 2 diabetes mellitus with foot ulcer; E11.42 Type 2 diabetes mellitus with diabetic polyneuropathy; L85.1 Acquired keratosis [keratoderma] palmaris et plantaris; E11.610 Type 2 diabetes mellitus with diabetic neuropathic arthropathy; I83.028 Varicose veins of left lower extremity with ulcer other part of lower leg; L89.150 Pressure ulcer of sacral region, unstageable; Z22.322 Carrier or suspected carrier of Methicillin resistant Staphylococcus aureus
CPT/HCPCS: 36415; 71045; 73550; 73700; 75630; 80048; 80202; 82962; 83036; 83735; 83880; 84100; 84443; 84484; 85025; 85610; 87040; 87081; 87340; 90935; 93005; 93922; 96360; C1725; C1760; C1769; C1887; C1894; J0692; J1644; J1815; J2250; J2270; J3010; J3370; J7040; J7050; P9047; Q9967

== ENCOUNTER 2019-03-28 15:01 | Inpatient (IN) | payer MEDICARE, OTHER ==
[~2019-03-28] VITALS: Ht 162.6 cm; Wt 89.1 kg
[~2019-03-28 15:01] MED LIST changes: -BISA10SU18 RC; +BISA10SU81 RC
[2019-03-28] MEDS ORDERED: CEFEPIME 2GM/50 ML (PMX) 50 ML IVPB STA (15:44)
[2019-03-28] MEDS ORDERED: VANCOMYCIN 1 GM (PMX) 250 ML IVPB ONE (16:00)
[2019-03-28] MEDS ORDERED: FAMO20TA18 PO (16:12)
[2019-03-28] MEDS ORDERED: APIX2.5T PO (16:12)
[2019-03-28] MEDS ORDERED: FURO20TA3 PO (16:13)
[2019-03-28] MEDS ORDERED: FOLI-49 PO (16:13)
[2019-03-28] MEDS ORDERED: LOSA25TA12 PO (16:14)
[2019-03-28] MEDS ORDERED: ARGI1POW19 PO (16:15)
[2019-03-28] MEDS ORDERED: NEPH PO (16:15)
[2019-03-28] MEDS ORDERED: ZINC220T PO (16:16)
--- NOTE | 2019-03-28 16:17 | ERD ---
ER Documentation Chief Complaint Chief Complaint left great toe wound worsening past week. no trauma, no fevers noted. HPI This 63-year-old who was sent from the wound care clinic for worsening gangrene to the feet. The patient is being seen by the amputation prevention center and the patient's left foot is getting worse. There are bilateral heel ulcers with gangrene his toes on the left. Patient is extremely poor historian ROS All systems reviewed and are negative except as per history of present illness. Medications Home Meds Reported Medications Sucralfate* (Carafate*) 1 Gm Tab, 1 GM PO AC MEALS AND BEDTIME, TAB 03/28/19 Ondansetron Hcl* (Zofran*) 4 Mg Tab, 4 MG PO Q6H PRN for NAUSEA AND/OR VOMITING, TAB 03/28/19 Hydrocodone/Acetaminophen ([place] 5-325 Tablet) 1 Each Tablet, 1 EACH PO Q6H, TAB 03/28/19 Hydromorphone Hcl* (Dilaudid*) 4 Mg Tablet, 4 MG PO Q6H PRN for PAIN -09/07, TAB 03/28/19 Bisacodyl* (Bisacodyl*) 5 Mg Tablet.dr, 5 MG PO BID, TAB 03/28/19 Insulin Aspart* (Novolog Insulin Pen*) 100 Unit/Ml Soln, 0 SC .SLIDING SCALE AC, EA IF BS 150-199=1 UNIT, 200-249=2 UNITS, 250-299=3 UNITS, 300-349=4 UNITS, OVER 349=5 UNITS CALL MD IF BS<60 OR >350 03/28/19 Pantoprazole* (Pantoprazole*) 40 Mg Tablet.dr, 40 MG PO AC BREAKFAST, TAB 03/28/19 Linaclotide (LINZESS) 145 Mcg Capsule, 145 MCG PO DAILY, #30 CAP 03/28/19 Tramadol Hcl* (Tramadol* ER) 100 Mg Tab.er.24h, 100 MG PO TID, #30 TAB 03/28/19 Guaifenesin/Codeine Phosphate (Codeine-Guaifen 10-100 mg/5 ml) 120 Ml Liquid, 5 ML PO TID 03/28/19 Sevelamer Carbonate* (Renvela*) 800 Mg Tablet, 0.8 GM PO WITH MEALS, TAB 03/28/19 Gabapentin* (Gabapentin*) 300 Mg Capsule, 300 MG PO TID, #90 CAP 03/28/19 Ipratropium-Albuterol (Ipratropium-Albuterol) 0.5-3 Mg/3 Ml Ampul.neb, 3 ML INHALATION Q4H, #30 VIAL 03/28/19 Loperamide Hcl* (Loperamide Hcl*) 2 Mg Cap, 2 MG PO Q4H PRN for NEEDED, CAP 03/28/19 Glucagon,Human Recombinant (Glucagon Emergency Kit) 1 Mg Kit, 1 MG IJ NEEDED, KIT 03/28/19 Acetaminophen* (Acetaminophen*) 650 Mg Tablet, 650 MG PO Q4H PRN for FOR FEVER, #30 TAB 03/28/19 Acetaminophen* (Acetaminophen*) 500 MG Extra Strength Tablet, 500 MG PO Q4H PRN for MILD PAIN LEVEL 1-3, TAB 03/28/19 Albuterol Sulfate* (Albuterol Sulfate* Neb) 0.083%-3 Ml Neb, 2.5 MG NEB Q4H PRN for WHEEZING AND SOB, #30 VIAL 03/28/19 Temazepam* (Restoril*) 30 Mg Capsule, 30 MG PO NEEDED PRN for INSOMNIA, CAP 03/28/19 Polyethylene Glycol* (Miralax*) 17 Gm Powd.pack, 17 GM PO DAILY, #30 PACKET 03/28/19 Benzonatate* (Benzonatate*) 100 Mg Capsule, 100 MG PO NEEDED PRN for COUGH, CAP 03/28/19 Lubiprostone* (Amitiza*) 24 Mcg Capsule, 24 MCG PO BID, #60 CAP 03/28/19 Atorvastatin Calcium* (Atorvastatin Calcium*) 20 Mg Tablet, 20 MG PO QHS, #30 TAB 03/28/19 Arginine/Ascorbate Sod/Paula AC (Arginaid Powder) 1 Each Powd.pack, 1 EACH PO DAILY 03/28/19 Multivit/Ca Carb/B Cmplx/Fa* (Suzie-Paula*) 1 Tab Tab, 1 TAB PO DAILY, TAB 03/28/19 Losartan Potassium* (Losartan Potassium*) 25 Mg Tablet, 25 MG PO DAILY, TAB HOLD IF SBP<110 OR HR<60 03/28/19 Furosemide* (Furosemide*) 20 Mg Tablet, 20 MG PO DAILY, #60 TAB 03/28/19 Folic Acid* (Folic Acid*) 1 Mg Tablet, 1 MG PO DAILY, TAB 03/28/19 Famotidine* (Famotidine*) 20 Mg Tablet, 20 MG PO DAILY, #30 TAB 03/28/19 Apixaban* (Eliquis*) 2.5 Mg Tablet, 2.5 MG PO DAILY, TAB 03/28/19 Discontinued Reported Medications Zinc Sulfate* (Zinc Sulfate*) 220 Mg Tablet, 220 MG PO DAILY, TAB 03/28/19 Insulin Aspart* (Novolog Insulin Pen*) 100 Unit/Ml Soln, 0-5 SC .SLIDING SCALE AC, EA 11/17/18 Sucralfate* (Carafate*) 1 Gm/10 Ml Susp, 1 GM PO TID, EA 11/17/18 Hydromorphone Hcl* (Dilaudid*) 4 Mg Tablet, 4 MG PO Q6H PRN for PAIN, TAB 11/17/18 Hydrocodone/Acetaminophen ([place] 5-325 Tablet) 1 Each Tablet, 1 EACH PO Q6 PRN for WHEEZING AND SOB, TAB 11/17/18 Ondansetron Hcl* (Ondansetron Hcl*) 4 Mg Tablet, 4 MG PO Q6H PRN for NAUSEA AND/OR VOMITING, TAB 11/17/18 Sevelamer Hcl* (Renagel*) 800 Mg Tablet, 2400 MG PO WITH MEALS, TAB 11/17/18 Gabapentin* (Gabapentin*) 300 Mg Capsule, 300 MG PO TID, #90 CAP 11/17/18 Glucagon,Human Recombinant (Glucagen) 1 Mg Vial, 1 MG IJ DAILY for LOW GLUCOSE, VIAL 11/17/18 Loperamide Hcl* (Loperamide Hcl*) 2 Mg Cap, 2 MG PO DAILY PRN for CONSTIPATION, CAP 11/17/18 Ipratropium-Albuterol (Ipratropium-Albuterol) 0.5-3 Mg/3 Ml Ampul.neb, 3 ML INHALATION Q4 PRN for WHEEZING AND SOB, #30 VIAL 11/17/18 Acetaminophen* (Acetaminophen*) 500 MG Extra Strength Tablet, 500 MG PO Q4H PRN for MILD PAIN LEVEL 1-3, TAB 11/17/18 Lubiprostone* (Amitiza*) 24 Mcg Capsule, 24 MCG PO BID, #60 CAP 11/17/18 Famotidine* (Famotidine*) 20 Mg Tablet, 20 MG PO BID, #60 TAB 11/17/18 Docusate Sodium* (Colace*) 100 Mg Capsule, 100 MG PO BID PRN for CONSTIPATION, #60 CAP 11/17/18 Temazepam* (Restoril*) 30 Mg Capsule, 30 MG PO HS PRN for INSOMNIA, CAP 11/17/18 Benzonatate* (Benzonatate*) 100 Mg Capsule, 100 MG PO DAILY PRN for COUGH, CAP 11/17/18 Metoprolol Tartrate* (Lopressor*) 50 Mg Tab, 50 MG PO BID, #60 TAB 11/17/18 Atorvastatin Calcium* (Atorvastatin Calcium*) 20 Mg Tablet, 20 MG PO QHS, #30 TAB 11/17/18 Losartan Potassium* (Losartan Potassium*) 25 Mg Tablet, 25 MG PO DAILY, TAB 11/17/18 Multivit/Ca Carb/B Cmplx/Fa* (Suzie-Paula*) 1 Tab Tab, 1 TAB PO DAILY, TAB 11/17/18 Apixaban* (Eliquis*) 2.5 Mg Tablet, 2.5 MG PO DAILY, TAB 11/17/18 Folic Acid* (Folic Acid*) 1 Mg Tablet, 1 MG PO DAILY, TAB 07/14/18 Bisacodyl* (Dulcolax*) 5 Mg Tablet.dr, 5 MG PO BID PRN for CONSTIPATION, TAB 07/14/18 Polyethylene Glycol* (Miralax*) 17 Gm Powd.pack, 17 GM PO DAILY PRN for CONSTIPATION, #30 PACKET 07/14/18 Bisacodyl (Laxative Suppository) 10 Mg Supp.rect, 10 MG RC DAILY for SEVERE CONSTIPATION, SUPP.RECT 07/14/18 Tramadol Hcl* (Ultram*) 50 Mg Tablet, 50 MG PO TID PRN for PAIN, TAB 06/07/18 Furosemide* (Furosemide*) 20 Mg Tablet, 20 MG PO DAILY, #60 TAB 06/07/18 Discontinued Scripts Hydrocodone/Acetaminophen ([place] 10-325 Tablet) 1 Each Tablet, 1 TAB PO Q6H PRN for PAIN, #7 TAB Prov:LINCOLN LEW MD 10/19/18 Allergies Allergies: Coded Allergies: Citalopram Analogues (Unverified Allergy, Unknown, 03/28/19) amoxicillin (Unverified Allergy, Unknown, 03/28/19) PMhx/Soc History of Surgery: Yes (APPENDECTOMY) Anesthesia Reaction: No Hx Neurological Disorder: No Hx Respiratory Disorders: Yes (ASTHMA) Hx Cardiac Disorders: Yes (HYPOTENSION) Hx Psychiatric Problems: No Hx Miscellaneous Medical Probl: No Hx Alcohol Use: No Hx Substance Use: No Hx Tobacco Use: No Smoking Status: Never smoker FmHx Family History: No coronary disease Physical Exam Vitals Vital Signs Date Temp Pulse Resp B/P (MAP) Pulse Ox O2 O2 Flow FiO2 Time Delivery Rate 03/28/19 97.8 105 20 110/85 97 15:03 (93) Physical Exam C const: Well-developed, well-nourished Head: Atraumatic, normocephalic Eyes: Normal Conjunctiva, PERRLA, EOMI, normal sclera, no nystagmus ENT: Normal External Ears, Nose and Mouth, moist mucus membranes. Neck: Full range of motion. No meningismus, no lymphadenopathy. Resp: Clear to auscultation bilaterally, no wheezing, rhonchi, rales Cardio: Regular rate and rhythm, no murmurs, S1 S2 present Abd: Soft, non tender x 4, non distended. Normal bowel sounds, no guarding or rebound, no pulsitile abdominal masses or bruits Skin: No petechiae or rashes, no ecchymosis , no maculopapular rash Back: No midline or flank tenderness Ext: No cyanosis, or edema, FROM x 4, both heels have decubitus ulcers with malodorous discharge the left toes are infected and gangrenous, the right toes were amputated, neurovascularly intact x 4 Neur: Awake and alert, STR 5/5 x 4, sensation intact x 4, no focal findings, cerebellum intact Psych: Normal Mood and Affect Result Diagram: 03/28/19 1614 Results 24 hrs Laboratory Tests Test 03/28/19 16:14 White Blood Count 11.7 10^3/ul Red Blood Count 4.23 10^6/ul Hemoglobin 12.9 g/dl Hematocrit 40.7 % Mean Corpuscular Volume 96.2 fl Mean Corpuscular Hemoglobin 30.5 pg Mean Corpuscular Hemoglobin Concent 31.7 g/dl Red Cell Distribution Width 17.7 % Platelet Count 239 10^3/UL Mean Platelet Volume 10.6 fl Immature Granulocytes % 0.500 % Neutrophils % 85.6 % Lymphocytes % 5.5 % Monocytes % 6.7 % Eosinophils % 0.9 % Basophils % 0.8 % Nucleated Red Blood Cells % 0.2 /100WBC Immature Granulocytes # 0.060 10^3/ul Neutrophils # 10.0 10^3/ul Lymphocytes # 0.7 10^3/ul Monocytes # 0.8 10^3/ul Eosinophils # 0.1 10^3/ul Basophils # 0.1 10^3/ul Nucleated Red Blood Cells # 0.0 10^3/ul Current Medications Medications Dose Sig/Caitlyn Start Time Status Last (Trade) Ordered Route PRN Stop Time Admin Dose Reason Admin Cefepime HCl 50 ml @ ONCE STAT 03/28/19 DC 03/28/19 100 mls/hr IVPB 15:44 16:31 03/28/19 16:13 Vancomycin 250 ml @ ONCE ONCE 03/28/19 HCl 125 mls/hr IVPB 16:00 03/28/19 17:59 Sodium 1,000 ml @ [id number] IV 03/28/19 Chloride 80 mls/hr 16:57 03/29/19 05:26 Ondansetron 4 mg BRIDGE ORDER 03/28/19 HCl (Zofran PRN IV 17:00 03/29/19 Inj) NAUSEA/VOMITI 16:59 NG 650 mg ER BRIDGE 03/28/19 Acetaminophen PRN PO 17:00 03/29/19 (Tylenol .MILD PAIN 16:59 Tab) 1-3 OR TEMP Procedures/MDM Patient has infected gangrenous left toes will admit to the hospital for probable CAT scans. X-rays been taken to rule out osteo-myelitis but are pending. Spoke with Dr. Rodriges for admission Departure Diagnosis: Primary Impression: Gangrene of toe of left foot Condition: Stable KAMILLA GUERRIER DO Mar 28, 2019 16:17
[2019-03-28] MEDS ORDERED: ATOR20TA38 PO (16:18)
[2019-03-28] MEDS ORDERED: LUBI24CA7 PO (16:19)
[2019-03-28] MEDS ORDERED: POLY17PO6 PO (16:20)
[2019-03-28] MEDS ORDERED: BENZ-5 PO (16:20)
[2019-03-28] MEDS ORDERED: TEMA30CA6 PO (16:21)
[2019-03-28] MEDS ORDERED: ALBU2.5V3 NEB (16:22)
[2019-03-28] MEDS ORDERED: ACET-141 PO (16:24)
[2019-03-28] MEDS ORDERED: ACET-2047 PO (16:24)
[2019-03-28] MEDS ORDERED: GLUC1KIT IJ (16:25)
[2019-03-28] MEDS ORDERED: LOPE-123 PO (16:26)
[2019-03-28] MEDS ORDERED: IPRA3AMP29 INHALATION (16:27)
[2019-03-28] MEDS ORDERED: GABA300C16 PO (16:28)
[2019-03-28] MEDS ORDERED: SEVE800T7 PO (16:28)
[2019-03-28] MEDS ORDERED: GUAI120L41 PO (16:30)
[2019-03-28] MEDS ORDERED: TRAM100T27 PO (16:31)
[2019-03-28] MEDS ORDERED: LINA145C PO (16:32)
[2019-03-28] MEDS ORDERED: PANT40TA4 PO (16:33)
[2019-03-28] MEDS ORDERED: NOVO3I SC (16:35)
[2019-03-28] MEDS ORDERED: BISA5TAB6 PO (16:36)
[2019-03-28] MEDS ORDERED: HYDR4TAB51 PO (16:37)
[2019-03-28] MEDS ORDERED: ONDA4TAB13 PO (16:38)
[2019-03-28] MEDS ORDERED: HYDR-4011 PO (16:38)
[2019-03-28] MEDS ORDERED: SUCR1TAB56 PO (16:39)
[2019-03-28] MEDS ORDERED: SOD CHLORIDE 0.9% 1,000 ML IV SCH (16:57)
[2019-03-28] MEDS ORDERED: ONDANSETRON 4 MG INJ IV PRN (17:00)
[2019-03-28] MEDS ORDERED: ACETAMINOPHEN 325 MG TAB PO PRN (17:00)
[2019-03-28] MEDS ORDERED: SOD CHLORIDE 0.9% 1,000 ML IV STA (18:56)
[2019-03-28 22:55] VITALS: BP 102/54; PULSE 101; RESP 20
[2019-03-28 22:56] VITALS: PULSE 99
[2019-03-28 23:59] VITALS: BP 98/44; PULSE 94; RESP 18
[2019-03-29] VITALS (11 sets, daily range): BP systolic 87–100; BP diastolic 42–59; PULSE 55–113; RESP 18–20
[2019-03-29] MEDS ORDERED: ALBUTEROL/IPRATROPIUM (NEB) 3 ML AMP INH SCH (03:00)
[2019-03-29] MEDS ORDERED: ACETAMINOPHEN 325 MG TAB PO PRN (03:00)
[2019-03-29] MEDS ORDERED: ALBUTEROL 0.083% (NEB) 2.5 MG/3 ML AMP NEB PRN (03:00)
[2019-03-29] MEDS ORDERED: LOPERAMIDE 2 MG CAP PO PRN (03:00)
[2019-03-29] MEDS ORDERED: VANCOMYCIN IV PER PHARMACY XX SCH (04:00)
[2019-03-29] MEDS ORDERED: ONDANSETRON 4 MG INJ IV PRN (04:00)
[2019-03-29] MEDS ORDERED: VANCOMYCIN 1 GM 250 ML IVPB SCH (04:00)
[2019-03-29] MEDS: PANTOPRAZOLE 40 MG INJ IV SCH (05:49)
[2019-03-29] MEDS: SUCRALFATE 1 GM TAB PO SCH ×4 (07:00→20:20)
[2019-03-29] MEDS ORDERED: PENDING SANTYL ORDER FOR WOUND CARE XX PRN (07:30)
[2019-03-29] MEDS: INSULIN ASPART [NOVOLOG] 3 ML PEN SC SCH ×4 (08:00→20:23)
[2019-03-29] MEDS: SEVELAMER CARBONATE 0.8 GM PKT PO SCH ×3 (08:00→17:04)
[2019-03-29] MEDS: CEFEPIME 1GM/50 ML (PMX) 50 ML IVPB SCH (08:31)
[2019-03-29] MEDS: GABAPENTIN 300 MG CAP PO SCH ×3 (08:58→20:20)
[2019-03-29] MEDS: MULTIVIT/CA CARB/B CMPLX/FA TAB PO SCH (08:58)
[2019-03-29] MEDS: FOLIC ACID 1 MG TAB PO SCH (08:58)
[2019-03-29] MEDS: APIXABAN 5 MG TABLET PO SCH (08:58)
[2019-03-29] MEDS ORDERED: LOSARTAN 25 MG TAB PO SCH (09:00)
[2019-03-29] MEDS ORDERED: FUROSEMIDE 20 MG TAB PO SCH (09:00)
[2019-03-29] MEDS: HYDROCODONE/APAP (5/325) TAB PO PRN ×2 (10:29→23:30)
--- NOTE | 2019-03-29 11:09 | CONS ---
Assessment/Plan Assessment/Plan Problems: (1) Non-pressure chronic ulcer of other part of right foot with necrosis of muscle Status: Chronic (2) Non-pressure ulcer of left lower extremity with necrosis of muscle (3) Diabetes, polyneuropathy (4) Charcot's joint of right foot Status: Chronic Assessment/Plan (Daily) Recommendation: Patient to be fully valid by vascular surgery. Daily dressing change with Betadine bilateral heels. Elevate heels off the bed with foam elevators. Nonweightbearing at this time. Patient will be followed in-house. Consultation Date/Type/Reason Admit Date/Time Mar 28, 2019 at 16:57 Date of Consultation: March 29, 2019 Type of Consult Foot and ankle surgery Reason for Consultation Evaluation for possible infection in both feet Date/Time of Note DATE: 03/29/19 TIME: 11:07 Hx of Present Illness This is a pleasant 63-year-old female patient was familiar to my practice who is admitted to the hospital for possible infection of both of her feet. She is on chronic hemodialysis and is under vascular surgery observation and management as well. She has had multiple foot surgeries in the past including partial amputations of toes and currently suffers from decubitus heel ulcerations on both feet. She reports pain in both of her feet but denies fever chills nausea or vomiting. She also reports no chest pain or shortness of breath since her admission to the hospital. Constitutional: no complaints Eyes: no complaints ENT: no complaints Past Medical History As per [facility] Home Meds Reported Medications Sucralfate* (Carafate*) 1 Gm Tab, 1 GM PO AC MEALS AND BEDTIME, TAB 03/28/19 Ondansetron Hcl* (Zofran*) 4 Mg Tab, 4 MG PO Q6H PRN for NAUSEA AND/OR VOMITING, TAB 03/28/19 Hydrocodone/Acetaminophen ([place] 5-325 Tablet) 1 Each Tablet, 1 EACH PO Q6H, TAB 03/28/19 Hydromorphone Hcl* (Dilaudid*) 4 Mg Tablet, 4 MG PO Q6H PRN for PAIN 7-09/07, TAB 03/28/19 Bisacodyl* (Bisacodyl*) 5 Mg Tablet.dr, 5 MG PO BID, TAB 03/28/19 Insulin Aspart* (Novolog Insulin Pen*) 100 Unit/Ml Soln, 0 SC .SLIDING SCALE AC, EA IF BS 150-199=1 UNIT, 200-249=2 UNITS, 250-299=3 UNITS, 300-349=4 UNITS, OVER 349=5 UNITS CALL MD IF BS<60 OR >350 03/28/19 Pantoprazole* (Pantoprazole*) 40 Mg Tablet.dr, 40 MG PO AC BREAKFAST, TAB 03/28/19 Linaclotide (LINZESS) 145 Mcg Capsule, 145 MCG PO DAILY, #30 CAP 03/28/19 Tramadol Hcl* (Tramadol* ER) 100 Mg Tab.er.24h, 100 MG PO TID, #30 TAB 03/28/19 Guaifenesin/Codeine Phosphate (Codeine-Guaifen 10-100 mg/5 ml) 120 Ml Liquid, 5 ML PO TID 03/28/19 Sevelamer Carbonate* (Renvela*) 800 Mg Tablet, 0.8 GM PO WITH MEALS, TAB 03/28/19 Gabapentin* (Gabapentin*) 300 Mg Capsule, 300 MG PO TID, #90 CAP 03/28/19 Ipratropium-Albuterol (Ipratropium-Albuterol) 0.5-3 Mg/3 Ml Ampul.neb, 3 ML INHALATION Q4H, #30 VIAL 03/28/19 Loperamide Hcl* (Loperamide Hcl*) 2 Mg Cap, 2 MG PO Q4H PRN for NEEDED, CAP 03/28/19 Glucagon,Human Recombinant (Glucagon Emergency Kit) 1 Mg Kit, 1 MG IJ NEEDED, KIT 03/28/19 Acetaminophen* (Acetaminophen*) 650 Mg Tablet, 650 MG PO Q4H PRN for FOR FEVER, #30 TAB 03/28/19 Acetaminophen* (Acetaminophen*) 500 MG Extra Strength Tablet, 500 MG PO Q4H PRN for MILD PAIN LEVEL 1-3, TAB 03/28/19 Albuterol Sulfate* (Albuterol Sulfate* Neb) 0.083%-3 Ml Neb, 2.5 MG NEB Q4H PRN for WHEEZING AND SOB, #30 VIAL 03/28/19 Temazepam* (Restoril*) 30 Mg Capsule, 30 MG PO NEEDED PRN for INSOMNIA, CAP 03/28/19 Polyethylene Glycol* (Miralax*) 17 Gm Powd.pack, 17 GM PO DAILY, #30 PACKET 03/28/19 Benzonatate* (Benzonatate*) 100 Mg Capsule, 100 MG PO NEEDED PRN for COUGH, CAP 03/28/19 Lubiprostone* (Amitiza*) 24 Mcg Capsule, 24 MCG PO BID, #60 CAP 03/28/19 Atorvastatin Calcium* (Atorvastatin Calcium*) 20 Mg Tablet, 20 MG PO QHS, #30 TAB 03/28/19 Arginine/Ascorbate Sod/Paula AC (Arginaid Powder) 1 Each Powd.pack, 1 EACH PO DAILY 03/28/19 Multivit/Ca Carb/B Cmplx/Fa* (Suzie-Paula*) 1 Tab Tab, 1 TAB PO DAILY, TAB 03/28/19 Losartan Potassium* (Losartan Potassium*) 25 Mg Tablet, 25 MG PO DAILY, TAB HOLD IF SBP<110 OR HR<60 03/28/19 Furosemide* (Furosemide*) 20 Mg Tablet, 20 MG PO DAILY, #60 TAB 03/28/19 Folic Acid* (Folic Acid*) 1 Mg Tablet, 1 MG PO DAILY, TAB 03/28/19 Famotidine* (Famotidine*) 20 Mg Tablet, 20 MG PO DAILY, #30 TAB 03/28/19 Apixaban* (Eliquis*) 2.5 Mg Tablet, 2.5 MG PO DAILY, TAB 03/28/19 Discontinued Reported Medications Zinc Sulfate* (Zinc Sulfate*) 220 Mg Tablet, 220 MG PO DAILY, TAB 03/28/19 Insulin Aspart* (Novolog Insulin Pen*) 100 Unit/Ml Soln, 0-5 SC .SLIDING SCALE AC, EA 11/17/18 Sucralfate* (Carafate*) 1 Gm/10 Ml Susp, 1 GM PO TID, EA 11/17/18 Hydromorphone Hcl* (Dilaudid*) 4 Mg Tablet, 4 MG PO Q6H PRN for PAIN, TAB 11/17/18 Hydrocodone/Acetaminophen ([place] 5-325 Tablet) 1 Each Tablet, 1 EACH PO Q6 PRN f or WHEEZING AND SOB, TAB 11/17/18 Ondansetron Hcl* (Ondansetron Hcl*) 4 Mg Tablet, 4 MG PO Q6H PRN for NAUSEA AND/OR VOMITING, TAB 11/17/18 Sevelamer Hcl* (Renagel*) 800 Mg Tablet, 2400 MG PO WITH MEALS, TAB 11/17/18 Gabapentin* (Gabapentin*) 300 Mg Capsule, 300 MG PO TID, #90 CAP 11/17/18 Glucagon,Human Recombinant (Glucagen) 1 Mg Vial, 1 MG IJ DAILY for LOW GLUCOSE, VIAL 11/17/18 Loperamide Hcl* (Loperamide Hcl*) 2 Mg Cap, 2 MG PO DAILY PRN for CONSTIPATION, CAP 11/17/18 Ipratropium-Albuterol (Ipratropium-Albuterol) 0.5-3 Mg/3 Ml Ampul.neb, 3 ML INHALATION Q4 PRN for WHEEZING AND SOB, #30 VIAL 11/17/18 Acetaminophen* (Acetaminophen*) 500 MG Extra Strength Tablet, 500 MG PO Q4H PRN for MILD PAIN LEVEL 1-3, TAB 11/17/18 Lubiprostone* (Amitiza*) 24 Mcg Capsule, 24 MCG PO BID, #60 CAP 11/17/18 Famotidine* (Famotidine*) 20 Mg Tablet, 20 MG PO BID, #60 TAB 11/17/18 Docusate Sodium* (Colace*) 100 Mg Capsule, 100 MG PO BID PRN for CONSTIPATION, #60 CAP 11/17/18 Temazepam* (Restoril*) 30 Mg Capsule, 30 MG PO HS PRN for INSOMNIA, CAP 11/17/18 Benzonatate* (Benzonatate*) 100 Mg Capsule, 100 MG PO DAILY PRN for COUGH, CAP 11/17/18 Metoprolol Tartrate* (Lopressor*) 50 Mg Tab, 50 MG PO BID, #60 TAB 11/17/18 Atorvastatin Calcium* (Atorvastatin Calcium*) 20 Mg Tablet, 20 MG PO QHS, #30 TAB 11/17/18 Losartan Potassium* (Losartan Potassium*) 25 Mg Tablet, 25 MG PO DAILY, TAB 11/17/18 Multivit/Ca Carb/B Cmplx/Fa* (Suzie-Paula*) 1 Tab Tab, 1 TAB PO DAILY, TAB 11/17/18 Apixaban* (Eliquis*) 2.5 Mg Tablet, 2.5 MG PO DAILY, TAB 11/17/18 Folic Acid* (Folic Acid*) 1 Mg Tablet, 1 MG PO DAILY, TAB 07/14/18 Bisacodyl* (Dulcolax*) 5 Mg Tablet.dr, 5 MG PO BID PRN for CONSTIPATION, TAB 07/14/18 Polyethylene Glycol* (Miralax*) 17 Gm Powd.pack, 17 GM PO DAILY PRN for CONSTIPATION, #30 PACKET 07/14/18 Bisacodyl (Laxative Suppository) 10 Mg Supp.rect, 10 MG RC DAILY for SEVERE CONSTIPATION, SUPP.RECT 07/14/18 Tramadol Hcl* (Ultram*) 50 Mg Tablet, 50 MG PO TID PRN for PAIN, TAB 06/07/18 Furosemide* (Furosemide*) 20 Mg Tablet, 20 MG PO DAILY, #60 TAB 06/07/18 Discontinued Scripts Hydrocodone/Acetaminophen ([place] 10-325 Tablet) 1 Each Tablet, 1 TAB PO Q6H PRN for PAIN, #7 TAB Prov:LINCOLN LEW MD 10/19/18 Medications Current Medications Ondansetron HCl (Zofran Inj) 4 mg BRIDGE ORDER PRN IV NAUSEA/VOMITING; Start 03/28/19 at 17:00; Stop 03/29/19 at 16:59 Acetaminophen (Tylenol Tab) 650 mg ER BRIDGE PRN PO .MILD PAIN 1-3 OR TEMP; Start 03/28/19 at 17:00; Stop 03/29/19 at 16:59 Acetaminophen (Tylenol Tab) 650 mg Q6 PRN PO FOR FEVER; Start 03/29/19 at 03:00 Albuterol (Proventil 0.083% (Neb)) 2.5 mg Q4H PRN NEB WHEEZING AND SOB; Start 03/29/19 at 03:00 Apixaban (Eliquis) 2.5 mg DAILY PO Last administered on 03/29/19at 08:58; Admin Dose 2.5 MG; Start 03/29/19 at 09:00 Atorvastatin Calcium (Lipitor) 20 mg QHS PO ; Start 03/29/19 at 21:00 Bisacodyl (Dulcolax) 5 mg BID PRN PO CONSTIPATION; Start 03/29/19 at 03:00 Folic Acid (Folic Acid) 1 mg DAILY PO Last administered on 03/29/19at 08:58; Admin Dose 1 MG; Start 03/29/19 at 09:00 Furosemide (Lasix) 20 mg DAILY PO ; Start 03/29/19 at 09:00 Gabapentin (Neurontin) 300 mg TID PO Last administered on 03/29/19at 08:58; Admin Dose 300 MG; Start 03/29/19 at 09:00 Acetaminophen/ Hydrocodone Bitart ([place] (5/325)) 1 tab Q6H PRN PO PAIN Last administered on 03/29/19at 10:29; Admin Dose 1 TAB; Start 03/29/19 at 03:00 Loperamide HCl (Imodium Cap) 2 mg Q4H PRN PO NEEDED; Start 03/29/19 at 03:00 Losartan Potassium (Cozaar) 25 mg DAILY PO ; Start 03/29/19 at 09:00 Multivit/Ca Carb/ B Cmplx/FA/Prenat (Suzie-Paula) 1 tab DAILY PO Last administered on 03/29/19at 08:58; Admin Dose 1 TAB; Start 03/29/19 at 09:00 Sevelamer Carbonate (Renvela) 0.8 gm WITH MEALS PO ; Start 03/29/19 at 08:00 Sucralfate (Carafate) 1 gm AC MEALS AND BEDTIME PO ; Start 03/29/19 at 07:00 Ondansetron HCl (Zofran Inj) 4 mg Q6H PRN IV NAUSEA AND/OR VOMITING; Start 03/29/19 at 04:00 Pantoprazole (Protonix Iv) 40 mg DAILY@06 IV Last administered on 03/29/19at 05:49; Admin Dose 40 MG; Start 03/29/19 at 06:00 Vancomycin HCl (Vanco Iv Per Pharmacy) VANCOMYCIN PER PHARMACY PER PROTOCOL XX ; Start 03/29/19 at 04:00 Cefepime HCl 50 ml @ 100 mls/hr DAILY IVPB Last administered on 03/29/19at 08:31; Admin Dose 100 MLS/HR; Start 03/29/19 at 09:00 Insulin Aspart (Novolog Insulin Pen) NOVOLOG *MILD* ALGORITHM WITH MEALS BE DTIME SC ; Start 03/29/19 at 08:00 [facility]iscellaneous Information [facility] This patient davis... PRN PRN XX WOUND CARE; Start 03/29/19 at 07:30 Allergies: Coded Allergies: Citalopram Analogues (Unverified Allergy, Unknown, 03/28/19) amoxicillin (Unverified Allergy, Unknown, 03/28/19) Past Surgical History Past Surgical Hx: angioplasty, appendectomy, cholecystectomy, endoscopy Social History Smoking Status: Never smoker Exam/Review of Systems Exam Vitals Vital Signs Date Temp Pulse Resp B/P (MAP) Pulse Ox O2 O2 Flow FiO2 Time Delivery Rate 03/29/19 94/42 (59) 10:38 03/29/19 94 08:33 03/29/19 98.3 20 98 07:23 03/28/19 Room Air 23:59 03/28/19 2.0 22:27 Intake and Output 03/28/19 03/28/19 03/29/19 1515:00 23:00 07:00 IntakeIntake Total 400 ml OutputOutput Total 0 ml BalanceBalance 400 ml Exam Patient is laying supine in bed in no acute distress. Patient has bandaging on both feet. Both bandages were removed and both feet were examined. Patient is status post multiple toe surgeries and amputations on both feet. Patient has severe dry heel decubitus ulceration on both heels. There is no active bleeding or pus noted. Dorsalis pedis and posterior tibial pulse is weak bilateral feet. Sensation is significantly decreased to sharp dull vibratory and temperature stimuli. There is malodor present which is from the gangrenous changes. Labs reviewed. Results Result Diagram: 03/29/1918 03/29/19517 Results 24hrs Laboratory Tests Test 03/28/19 16:14 03/28/19 16:59 03/29/19 05:18 03/29/19 08:01 White Blood Count 11.7 #H 10.9 H Red Blood Count 4.23 3.90 L Hemoglobin 12.9 11.8 L Hematocrit 40.7 36.7 L Mean Corpuscular 96.2 94.1 Volume Mean Corpuscular 30.5 30.3 Hemoglobin Mean Corpuscular 31.7 L 32.2 Hemoglobin Concent Red Cell Distribution 17.7 H 17.2 H Width Platelet Count 239 # 221 Mean Platelet Volume 10.6 H 10.0 Immature Granulocytes 0.500 H 0.600 H % Neutrophils % 85.6 H 83.3 H Lymphocytes % 5.5 L 5.2 L Monocytes % 6.7 8.1 Eosinophils % 0.9 1.9 Basophils % 0.8 0.9 Nucleated Red Blood 0.2 H 0.2 H Cells % Immature Granulocytes 0.060 H 0.070 H # Neutrophils # 10.0 H 9.1 H Lymphocytes # 0.7 L 0.6 L Monocytes # 0.8 0.9 Eosinophils # 0.1 0.2 Basophils # 0.1 0.1 Nucleated Red Blood 0.0 0.0 Cells # Sodium Level 135 136 Potassium Level 4.3 4.3 Chloride Level 98 102 Carbon Dioxide Level 21 21 Anion Gap 16 H 13 Blood Urea Nitrogen 25 H 27 H Creatinine 4.34 H 4.46 H Est Glomerular Filtrat 10 L 10 L Rate mL/min Glucose Level 163 120 # Calcium Level 8.3 L 7.9 L Total Bilirubin 1.0 Direct Bilirubin 0.50 H Indirect Bilirubin 0.5 Aspartate Amino 28 Transf (AST/SGOT) Alanine 12 L Aminotransferase (ALT/ SGPT) Alkaline Phosphatase 304 H Total Protein 8.5 H Albumin 3.5 Globulin 5.00 H Albumin/Globulin Ratio 0.70 Bedside Glucose 102 Medications Medication Current Medications Ondansetron HCl (Zofran Inj) 4 mg BRIDGE ORDER PRN IV NAUSEA/VOMITING; Start 03/28/19 at 17:00; Stop 03/29/19 at 16:59 Acetaminophen (Tylenol Tab) 650 mg ER BRIDGE PRN PO .MILD PAIN 1-3 OR TEMP; Start 03/28/19 at 17:00; Stop 03/29/19 at 16:59 Acetaminophen (Tylenol Tab) 650 mg Q6 PRN PO FOR FEVER; Start 03/29/19 at 03:00 Albuterol (Proventil 0.083% (Neb)) 2.5 mg Q4H PRN NEB WHEEZING AND SOB; Start 03/29/19 at 03:00 Apixaban (Eliquis) 2.5 mg DAILY PO Last administered on 03/29/19at 08:58; Admin Dose 2.5 MG; Start 03/29/19 at 09:00 Atorvastatin Calcium (Lipitor) 20 mg QHS PO ; Start 03/29/19 at 21:00 Bisacodyl (Dulcolax) 5 mg BID PRN PO CONSTIPATION; Start 03/29/19 at 03:00 Folic Acid (Folic Acid) 1 mg DAILY PO Last administered on 03/29/19at 08:58; Admin Dose 1 MG; Start 03/29/19 at 09:00 Furosemide (Lasix) 20 mg DAILY PO ; Start 03/29/19 at 09:00 Gabapentin (Neurontin) 300 mg TID PO Last administered on 03/29/19at 08:58; Admin Dose 300 MG; Start 03/29/19 at 09:00 Acetaminophen/ Hydrocodone Bitart ([place] (5/325)) 1 tab Q6H PRN PO PAIN Last administered on 03/29/19at 10:29; Admin Dose 1 TAB; Start 03/29/19 at 03:00 Loperamide HCl (Imodium Cap) 2 mg Q4H PRN PO NEEDED; Start 03/29/19 at 03:00 Losartan Potassium (Cozaar) 25 mg DAILY PO ; Start 03/29/19 at 09:00 Multivit/Ca Carb/ B Cmplx/FA/Prenat (Suzie-Paula) 1 tab DAILY PO Last administered on 03/29/19at 08:58; Admin Dose 1 TAB; Start 03/29/19 at 09:00 Sevelamer Carbonate (Renvela) 0.8 gm WITH MEALS PO ; Start 03/29/19 at 08:00 Sucralfate (Carafate) 1 gm AC MEALS AND BEDTIME PO ; Start 03/29/19 at 07:00 Ondansetron HCl (Zofran Inj) 4 mg Q6H PRN IV NAUSEA AND/OR VOMITING; Start 03/29/19 at 04:00 Pantoprazole (Protonix Iv) 40 mg DAILY@06 IV Last administered on 03/29/19at 05:49; Admin Dose 40 MG; Start 03/29/19 at 06:00 Vancomycin HCl (Vanco Iv Per Pharmacy) VANCOMYCIN PER PHARMACY PER PROTOCOL XX ; Start 03/29/19 at 04:00 Cefepime HCl 50 ml @ 100 mls/hr DAILY IVPB Last administered on 03/29/19at 08:31; Admin Dose 100 MLS/HR; Start 03/29/19 at 09:00 Insulin Aspart (Novolog Insulin Pen) NOVOLOG *MILD* ALGORITHM WITH MEALS BEDTIME SC ; Start 03/29/19 at 08:00 Miscellaneous Information (Pending [facility] Order For Wound Care) This patient davis... PRN PRN XX WOUND CARE; Start 03/29/19 at 07:30 MONAE SCHULER DPM March 29, 2019 11:08
[2019-03-29] MEDS: SOD CHLORIDE 0.45% 1,000 ML IV SCH (11:51)
[2019-03-29] MEDS: ALBUMIN HUMAN 25% 100 ML IV SCH ×2 (11:52→20:20)
--- NOTE | 2019-03-29 14:00 | HP ---
DATE OF ADMISSION: 03/29/2019 REASON FOR VISIT: [facility] to worsening by bilateral lower extremity wounds. HISTORY OF PRESENT ILLNESS: This is a 63-year-old female with a past medical history of diabetes, hy pertension, hypercholesterolemia, end-stage renal disease - on hemodialysis, with right foot ul cers, peripheral vascular disease who lives in [facility]. Was sent in from the [facility] due to worsening bilateral lower extremity wounds. The patient has bilateral lower extremity wound for quite some time and has been following Dr. Schultz and Dr. Lemus as an outpatient. According to [facility] notes, the patient has been noted to have a malodorous discharge from the wounds and was sent into the ER for further evaluation. According to the patient, she has been feeling dizzy for last few days. She was at her dialysis center on Wednesday and they do a full session of dialysis. O n arrival to ER, the patient had vital signs of blood pressure initially 110/85. White count of 11.7 , platelet count 239,000, hemoglobin 12.9, BUN of 25, creatinine 4.34, alkaline phosphorus 304. The patient had a foot x-ray that showed plantar soft tissue swelling with a small ulcer. No osteomyelit is on the right foot. Changes consistent with Charcot foot. Status post amputation of the fourth di git. The patient also had an x-ray of the left foot that showed Charcot foot. No significant change . No lytic lesion. The patient was started on IV vancomycin and cefepime and IV fluids and was admi tted for further management. PAST MEDICAL HISTORY: 1. End-stage renal disease, on hemodialysis Wednesday, Wednesday, Wednesday. 2. Hypertension. 3. Diabetes with complications of diabetic nephropathy, neuropathy. 4. History of pneumonia. 5. History of atrial fibrillation. 6. History of cholecystectomy. 7. Anxiety. 8. Depression. 9. History of multiple AV graft revisions and thrombectomy. 10. History of gastritis. 11. History of gastroparesis. 12. History of peripheral vascular disease. ALLERGIES: 1. AMOXICILLIN. 2. CELEXA. SOCIAL HISTORY: No history of smoking or IV drug use. Currently lives in [facility], has a juan ghter. FAMILY HISTORY: Extensive for the members of the family having diabetes. MEDICATIONS: [facility] the [facility]: 1. Pepcid. 2. Eliquis 2.5 every other day. 3. Folic acid. 4. Lasix 20. 5. Losartan 25. 6. Suzie-Paula. 7. Atorvastatin 20. 8. Amitiza. 9. Benzonatate 100 mg capsule. 10. MiraLax powder. 11. Restoril. 12. Acetaminophen. 13. Albuterol. 14. Loperamide p.r.n. 15. Codeine. 16. Renagel 800 t.i.d. with meals. 17. Gabapentin 300 t.i.d. 18. Tramadol. 19. Linzess. 20. Pantoprazole. 21. Bisacodyl. 22. Dilaudid. 23. [place]. 24. Sucralfate. PAST SURGICAL HISTORY: The patient has history of multiple AV graft revisions and thrombectomy, chol ecystectomy, diabetic foot surgery, status post amputation. REVIEW OF SYSTEMS: The patient complained of pain on the bilateral lower extremities. Complains of some dizziness. Denied any abdominal pain, nausea, vomiting, diarrhea. Denied any headache, any lilly rry vision. Denies any focal neurological deficits. PHYSICAL EXAMINATION: VITAL SIGNS: Blood pressure is currently 94/42, afebrile, heart rate 90, saturating 98% on room air. GENERAL: The patient is awake, alert, oriented, does not appear to be in any acute distress. HEENT: Pupils equal, round, reactive to light. NECK: Supple. No JVD. HEART: Regular rate and rhythm. LUNGS: Clear to auscultation bilaterally. ABDOMEN: Soft, nontender, obese. Positive bowel sounds. EXTREMITIES: 1. Right foot: The patient has right foot Charcot right, right foot heel gangrene, status post ampu tation of the right first toe. 2. Left foot: The patient has gangrenous changes on the second, third, and fourth toes. The patien t also has some left leg ulcer, 2 x 3 cm at the bottom of the left foot. DIAGNOSTIC DATA: The patient has a right chest wall Perm-A-Cath. X-rays as above. LABORATORY DATA: White count is 11.7, hemoglobin 12.9, platelet count 239,000. BUN of 27, creatinin e 4.46. ASSESSMENT AND PLAN: This is a 63-year-old female who presented with: 1. Right foot gangrene and left foot necrotic ulcer, likely secondary to severe peripheral vascular disease. 2. Leukocytosis secondary to number 1. 3. Sepsis secondary to number 1. 4. Diabetes. 5. End-stage renal disease, on hemodialysis. 6. Diabetes with a complication of diabetic neuropathy, nephropathy. 7. Hypertension, currently hypotensive. 8. Secondary hyperparathyroidism. 9. Chronic atrial fibrillation. 10. History of peripheral vascular disease. 11. Hypercholesterolemia. 12. History of gastritis. 13. History of gastroparesis. At this period of time, the patient will be admitted to telemetry. We will give the patient some gen tle intravenous (IV) fluids, albumin. The patient will be on broad-spectrum antibiotics. We will se nd for wound cultures. We will get arterial Doppler studies of the lower extremities. The patient w ill be on strict diabetic control. Vascular consultation will be obtained and also podiatry consulta tion will be obtained. Infectious disease (ID) consultation will also be obtained from Dr. Webb. Dialysis will be on hold today, Since the patient is hypotensive. Rest of the treatment will depend on the patient's hospitalization course. Dictated By: JACOB LARA/ABHIJIT Conf#: [id number] DID#: [id number]
--- NOTE | 2019-03-29 15:14 | CONS ---
DATE OF ADMISSION: 03/28/2019 DATE OF CONSULTATION: 03/29/2019 TYPE OF CONSULTATION: Infectious disease. REASON FOR CONSULTATION: Antibiotic management. HISTORY OF PRESENT ILLNESS: Mariza Sprague is a 63-year-old female admitted on 03/28/2019 with left g reat toe wound which has worsened in the past week. She is seen in wound care clinic with worsening gangrene of her feet. She has bilateral heel ulcers with gangrene of the toes on the left foot. PAST MEDICAL HISTORY AND PAST SURGICAL HISTORY: Status post appendectomy. She has a history of asth ma, history of hypertension in the past. FAMILY HISTORY: Noncontributory. SOCIAL HISTORY: She does not smoke, drink or abuse drugs. ALLERGIES: 1. CITALOPRAM. 2. AMOXICILLIN. MEDICATIONS: Per chart. REVIEW OF SYSTEMS: Noncontributory. PHYSICAL EXAMINATION: GENERAL: The patient is well-developed, well-nourished female who is awake, responsive, in no acute distress. VITAL SIGNS: Stable. She is afebrile. SKIN: Without generalized rash. HEENT: Within normal limits. NECK: Supple. LYMPH NODES: None palpable. CHEST: Decreased breath sounds at the bases. HEART: Without murmur or gallop. ABDOMEN: Soft, nontender without organosplenomegaly or masses. EXTREMITIES: Without cyanosis, clubbing or edema. EXTREMITIES: She has both heels with decubitus ulcers with malodorous discharge. The left toes are infected and gangrenous. The right toes were amputated. RECTAL AND GENITAL: Deferred. NEUROLOGIC: No focal neurological abnormality. HOSPITAL COURSE: White count 11.7, H and H of 12.9 and 40.7, platelet count 239,000. She has 86% ne utrophils. She was started on vancomycin and cefepime. The patient with infected gangrenous left to es. X-rays have been done. CT scan is pending. X-rays of her right foot: No definite osteo change s consistent with Charcot foot, status post amputation of the 1st digit, extending to the mid metatar anna. There is an irregular soft tissue density distal to the 1st metatarsal. Her left foot Charcot joint, no significant change from 06/28/2018, no lytic lesions. IMPRESSION AND PLAN: The patient is to be seen by podiatry. In fact, the patient was seen by Dr. Jeremiah Schultz. He notes non-pressure chronic ulcer, right foot with necrosis of muscle, same with left foot, diabetic polyneuropathy, Charcot joint on right. I recommended that the patient be , read y for surgery, elevate heels of the bed with foam elevators. The patient will be followed in-house. The patient should be fully evaluated by surgery. We will continue her on current therapy. I will dictate my findings to the hospitalist and to Dr. Schultz. Of note is the fact that she has had other surgeries including angioplasty, cholecystectomy in addition to the appendectomy. She has also had an endoscopy. Continue antibiotic therapy for her gangrenous toes. Dictated By: ROGER BARRERA MD, JD/NTS Conf#: [id number] DID#: [id number] CC: JACOB GONZALEZ; LOUIS DAY MD;*End*
[2019-03-29] MEDS: ATORVASTATIN 20 MG TAB PO SCH (20:21)
[2019-03-30] VITALS (31 sets, daily range): BP systolic 83–152; BP diastolic 45–93; PULSE 84–118; RESP 18–20
[2019-03-30] MEDS: ALBUMIN HUMAN 25% 100 ML IV SCH (03:50)
[2019-03-30] MEDS: PANTOPRAZOLE 40 MG INJ IV SCH (06:21)
[2019-03-30] MEDS: SUCRALFATE 1 GM TAB PO SCH ×4 (06:22→20:46)
[2019-03-30] MEDS: HYDROCODONE/APAP (5/325) TAB PO PRN ×3 (06:22→21:25)
[2019-03-30] MEDS: INSULIN ASPART [NOVOLOG] 3 ML PEN SC SCH ×4 (07:47→20:47)
[2019-03-30] MEDS: MULTIVIT/CA CARB/B CMPLX/FA TAB PO SCH (08:15)
[2019-03-30] MEDS: SEVELAMER CARBONATE 0.8 GM PKT PO SCH ×3 (08:15→17:23)
[2019-03-30] MEDS: GABAPENTIN 300 MG CAP PO SCH ×3 (08:15→20:46)
[2019-03-30] MEDS: APIXABAN 5 MG TABLET PO SCH (08:15)
[2019-03-30] MEDS: FOLIC ACID 1 MG TAB PO SCH (08:15)
--- NOTE | 2019-03-30 09:52 | PN ---
Date/Time of Note Date/Time of Note DATE: 03/30/19 TIME: 09:52 Assessment/Plan VTE Prophylaxis Risk score (from Nsg)>0 risk: 7 SCD applied (from Nsg): No Lines/Catheters IV Catheter Type (from Nrsg): Peripheral IV Urinary Cath still in place: Yes Assessment/Plan Result Diagram: 03/29/19 0518 03/30/19 0710 Results 24hrs Laboratory Tests Test 03/29/19 11:23 03/29/19 17:03 03/29/19 20:22 03/30/19 07:10 Bedside Glucose 118 122 124 Sodium Level 135 Potassium Level 4.7 Chloride Level 101 Carbon Dioxide Level 18 L Anion Gap 16 H Blood Urea Nitrogen 31 H Creatinine 5.17 H Est Glomerular Filtrat 8 L Rate mL/min Glucose Level 116 Calcium Level 8.6 Hepatitis B Surface NEGATIVE Antigen Test 03/30/19 07:31 Bedside Glucose 109 Exam/Review of Systems Exam Vitals Vital Signs Date Temp Pulse Resp B/P (MAP) Pulse Ox O2 O2 Flow FiO2 Time Delivery Rate 03/30/19 98 09:45 03/30/19 20 93/61 (72) 96 Room Air 09:00 03/30/19 98.2 07:20 03/28/19 2.0 22:27 Intake and Output 03/29/19 03/29/19 03/30/19 1515:00 23:00 07:00 IntakeIntake Total 400 ml 530 ml 400 ml OutputOutput Total 0 ml 0 ml BalanceBalance 400 ml 530 ml 400 ml Results Results 24hrs Laboratory Tests Test 03/29/19 11:23 03/29/19 17:03 03/29/19 20:22 03/30/19 07:10 Bedside Glucose 118 122 124 Sodium Level 135 Potassium Level 4.7 Chloride Level 101 Carbon Dioxide Level 18 L Anion Gap 16 H Blood Urea Nitrogen 31 H Creatinine 5.17 H Est Glomerular Filtrat 8 L Rate mL/min Glucose Level 116 Calcium Level 8.6 Hepatitis B Surface NEGATIVE Antigen Test 03/30/19 07:31 Bedside Glucose 109 Medications Medication Current Medications Acetaminophen (Tylenol Tab) 650 mg Q6 PRN PO FOR FEVER; Start 03/29/19 at 03:00 Albuterol (Proventil 0.083% (Neb)) 2.5 mg Q4H PRN NEB WHEEZING AND SOB; Start 03/29/19 at 03:00 Apixaban (Eliquis) 2.5 mg DAILY PO Last administered on 03/30/19 08:15; Admin Dose 2.5 MG; Start 03/29/19 at 09:00 Atorvastatin Calcium (Lipitor) 20 mg QHS PO Last administered on 03/29/19 20:21; Admin Dose 20 MG; Start 03/29/19 at 21:00 Bisacodyl (Dulcolax) 5 mg BID PRN PO CONSTIPATION; Start 03/29/19 at 03:00 Folic Acid (Folic Acid) 1 mg DAILY PO Last administered on 03/30/19 08:15; Admin Dose 1 MG; Start 03/29/19 at 09:00 Gabapentin (Neurontin) 300 mg TID PO Last administered on 03/30/19 08:15; Admin Dose 300 MG; Start 03/29/19 at 09:00 Acetaminophen/ Hydrocodone Bitart ([place] (5/325)) 1 tab Q6H PRN PO PAIN Last administered on 03/30/19 06:22; Admin Dose 1 TAB; Start 03/29/19 at 03:00 Loperamide HCl (Imodium Cap) 2 mg Q4H PRN PO NEEDED; Start 03/29/19 at 03:00 Multivit/Ca Carb/ B Cmplx/FA/Prenat (Suzie-Paula) 1 tab DAILY PO Last administered on 03/30/19 08:15; Admin Dose 1 TAB; Start 03/29/19 at 09:00 Sevelamer Carbonate (Renvela) 0.8 gm WITH MEALS PO Last administered on 03/30/19 08:15; Admin Dose 0.8 GM; Start 03/29/19 at 08:00 Sucralfate (Carafate) 1 gm AC MEALS AND BEDTIME PO Last administered on 03/30/19 06:22; Admin Dose 1 GM; Start 03/29/19 at 07:00 Ondansetron HCl (Zofran Inj) 4 mg Q6H PRN IV NAUSEA AND/OR VOMITING; Start 03/29/19 at 04:00 Pantoprazole (Protonix Iv) 40 mg DAILY@06 IV Last administered on 03/30/19 06:21; Admin Dose 40 MG; Start 03/29/19 at 06:00 Vancomycin HCl (Vanco Iv Per Pharmacy) VANCOMYCIN PER PHARMACY PER PROTOCOL XX ; Start 03/29/19 at 04:00 Cefepime HCl 50 ml @ 100 mls/hr DAILY IVPB Last administered on 03/29/19at 08:31; Admin Dose 100 MLS/HR; Start 03/29/19 at 09:00 Insulin Aspart (Novolog Insulin Pen) NOVOLOG *MILD* ALGORITHM WITH MEALS BEDTI ME SC ; Start 03/29/19 at 08:00 Miscellaneous Information (Pending [facility] Order For Wound Care) This patient davis... PRN PRN XX WOUND CARE; Start 03/29/19 at 07:30 Sodium Chloride 1,000 ml @ 20 mls/hr Q24H IV Last administered on 03/29/19at 11:51; Admin Dose 20 MLS/HR; Start 03/29/19 at 11:30 JACOB GONZALEZ MD March 30, 2019 09:52
--- NOTE | 2019-03-30 09:53 | PN ---
Date/Time of Note Date/Time of Note DATE: 03/30/19 TIME: 09:53 Assessment/Plan VTE Prophylaxis Risk score (from Ns)>0 risk: 7 SCD applied (from Ns): No SCD contraindicated: low risk/ambulating Pharmacological prophylaxis: NA/contraindicated Pharm contraindication: low risk/ambulating Lines/Catheters IV C[facility] Type (from [facility] Peripheral IV Urinary Cath still in place: Yes Reason Cath still needed: urinary retention Assessment/Plan Hospital Course ASSESSMENT AND PLAN: This is a 63-year-old female who presented with: 1. Right foot gangrene and left foot necrotic ulcer, likely secondary to severe peripheral vascular disease. 2. Leukocytosis secondary to number 1. 3. Sepsis secondary to number 1.ith hypotension 4. Diabetes. 5. End-stage renal disease, on hemodialysis. 6. Diabetes with a complication of diabetic neuropathy, nephropathy. 7. Hypertension, currently hypotensive. 8. Secondary hyperparathyroidism. 9. Chronic atrial fibrillation. 10. History of peripheral vascular disease. 11. Hypercholesterolemia. 12. History of gastritis. 13. History of gastroparesis. Plan - HD today with albumin support - will get EKG/TROP/echo/ - Angiogram kimber mercer tmw - iv abx per ID - FU Podiatry recs - cw Eliquis cw PPI/SUCRALFATE Result Diagram: 03/29/19 0518 03/30/19 0710 Results 24hrs Laboratory Tests Test 03/29/19 11:23 03/29/19 17:03 03/29/19 20:22 03/30/19 07:10 Bedside Glucose 118 122 124 Sodium Level 135 Potassium Level 4.7 Chloride Level 101 Carbon Dioxide Level 18 L Anion Gap 16 H Blood Urea Nitrogen 31 H Creatinine 5.17 H Est Glomerular Filtrat 8 L Rate mL/min Glucose Level 116 Calcium Level 8.6 Hepatitis B Surface NEGATIVE Antigen Test 03/30/19 07:31 Bedside Glucose 109 Subjective 24 Hr Interval Summary Free Text/Dictation some epigastric today Exam/Review of Systems Exam Vitals Vital Signs Date Temp Pulse Resp B/P (MAP) Pulse Ox O2 O2 Flow FiO2 Time Delivery Rate 03/30/19 98 09:45 03/30/19 20 93/61 (72) 96 Room Air 09:00 03/30/19 98.2 07:20 03/28/19 2.0 22:27 Intake and Output 03/29/19 03/29/19 03/30/19 1515:00 23:00 07:00 IntakeIntake Total 400 ml 530 ml 400 ml OutputOutput Total 0 ml 0 ml BalanceBalance 400 ml 530 ml 400 ml Exam GENERAL: The patient is awake, alert, oriented, does not appear to be in any acute distress. HEENT: Pupils equal, round, reactive to light. NECK: Supple. No JVD. HEART: Regular rate and rhythm. LUNGS: Clear to auscultation bilaterally. ABDOMEN: Soft, nontender, obese. Positive bowel sounds. EXTREMITIES: 1. Right foot: The patient has right foot Charcot right, right foot heel gangrene, status post amputation of the right first toe. 2. Left foot: The patient has gangrenous changes on the second, third, and fourth toes. The patient also has some left leg ulcer, 2 x 3 cm at the bottom of the left foot. Results Results 24hrs Laboratory Tests Test 03/29/19 11:23 03/29/19 17:03 03/29/19 20:22 03/30/19 07:10 Bedside Glucose 118 122 124 Sodium Level 135 Potassium Level 4.7 Chloride Level 101 Carbon Dioxide Level 18 L Anion Gap 16 H Blood Urea Nitrogen 31 H Creatinine 5.17 H Est Glomerular Filtrat 8 L Rate mL/min Glucose Level 116 Calcium Level 8.6 Hepatitis B Surface NEGATIVE Antigen Test 03/30/19 07:31 Bedside Glucose 109 Medications Medication Current Medications Acetaminophen (Tylenol Tab) 650 mg Q6 PRN PO FOR FEVER; Start 03/29/19 at 03:00 Albuterol (Proventil 0.083% (Neb)) 2.5 mg Q4H PRN NEB WHEEZING AND SOB; Start 03/29/19 at 03:00 Apixaban (Eliquis) 2.5 mg DAILY PO Last administered on 03/30/19at 08:15; Admin Dose 2.5 MG; Start 03/29/19 at 09:00 Atorvastatin Calcium (Lipitor) 20 mg QHS PO Last administered on 03/29/19at 20:21; Admin Dose 20 MG; Start 03/29/19 at 21:00 Bisacodyl (Dulcolax) 5 mg BID PRN PO CONSTIPATION; Start 03/29/19 at 03:00 Folic Acid (Folic Acid) 1 mg DAILY PO Last administered on 03/30/19 08:15; Admin Dose 1 MG; Start 03/29/19 at 09:00 Gabapentin (Neurontin) 300 mg TID PO Last administered on 03/30/19 08:15; Admin Dose 300 MG; Start 03/29/19 at 09:00 Acetaminophen/ Hydrocodone Bitart ([place] (5/325)) 1 tab Q6H PRN PO PAIN Last administered on 03/30/19 06:22; Admin Dose 1 TAB; Start 03/29/19 at 03:00 Loperamide HCl (Imodium Cap) 2 mg Q4H PRN PO NEEDED; Start 03/29/19 at 03:00 Multivit/Ca Carb/ B Cmplx/FA/Prenat (Suzie-Paula) 1 tab DAILY PO Last administered on 03/30/19 08:15; Admin Dose 1 TAB; Start 03/29/19 at 09:00 Sevelamer Carbonate (Renvela) 0.8 gm WITH MEALS PO Last administered on 03/30/19 08:15; Admin Dose 0.8 GM; Start 03/29/19 at 08:00 Sucralfate (Carafate) 1 gm AC MEALS AND BEDTIME PO Last administered on 03/30/19 06:22; Admin Dose 1 GM; Start 03/29/19 at 07:00 Ondansetron HCl (Zofran Inj) 4 mg Q6H PRN IV NAUSEA AND/OR VOMITING; Start 03/29/19 at 04:00 Pantoprazole (Protonix Iv) 40 mg DAILY@06 IV Last administered on 03/30/19at 06:21; Admin Dose 40 MG; Start 03/29/19 at 06:00 Vancomycin HCl (Vanco Iv Per Pharmacy) VANCOMYCIN PER PHARMACY PER PROTOCOL XX ; Start 03/29/19 at 04:00 Cefepime HCl 50 ml @ 100 mls/hr DAILY IVPB Last administered on 03/29/19at 08:31; Admin Dose 100 MLS/HR; Start 03/29/19 at 09:00 Insulin Aspart (Novolog Insulin Pen) NOVOLOG *MILD* ALGORITHM WITH MEALS BEDTIME SC ; Start 03/29/19 at 08:00 Miscellaneous Information (Pending [facility] Order For Wound Care) This patient davis... PRN PRN XX WOUND CARE; Start 03/29/19 at 07:30 Sodium Chloride 1,000 ml @ 20 mls/hr Q24H IV Last administered on 03/29/19at 11:51; Admin Dose 20 MLS/HR; Start 03/29/19 at 11:30 JACOB GOZNALEZ MD March 30, 2019 09:53
[2019-03-30] MEDS ORDERED: ALBUMIN HUMAN 25% 100 ML IV ONE (10:00)
[2019-03-30] MEDS ORDERED: AL HYDROX/MG HYDROX/SIMETH 30 ML CUP PO PRN (10:00)
[2019-03-30] MEDS: SOD CHLORIDE 0.45% 1,000 ML IV SCH (11:30)
[2019-03-30] MEDS: CEFEPIME 1GM/50 ML (PMX) 50 ML IVPB SCH (11:32)
--- NOTE | 2019-03-30 14:10 | CONS ---
Assessment/Plan Assessment/Plan Hospital Course (Demo Recall) 1300 Awake, status post hemodialysis, feels very weak, no distress, no fevers. WBC 10.9 platelets 221 neutrophils 83.3. Indwelling: Right chest permacath. Microbiology: Blood cultures negative MRSA swab negative Allergy: Amoxicillin Antimicrobials: Vancomycin and cefepime Physical examination: This is a wasted well-developed fragile elderly woman who is awake the patient is in no distress. Head atraumatic normocephalic. Neck is supple. Chest rise symmetrical breath sounds diminished bases. Heart: S1-S2. Abdomen soft bowel sounds present. Extremities with bilateral lower extremities chronic changes and ulcerations Assessment: 1. Bilateral lower extremities diabetic ulceration 2. Right foot Charcot's joint 3. End-stage renal disease, hemodialysis dependent 4. Diabetes 5. Failure to thrive Plan: Patient remains stable, podiatry on case, continue present care and antibiotics, pending vascular surgery evaluation Consultation Date/Type/Reason Admit Date/Time Mar 28, 2019 at 16:57 Initial Consult Date 03/29/19 Type of Consult id Date/Time of Note DATE: 03/30/19 TIME: 14:09 Exam/Review of Systems Exam Vitals Vital Signs Date Temp Pulse Resp B/P (MAP) Pulse Ox O2 O2 Flow FiO2 Time Delivery Rate 03/30/19 118 12:13 03/30/19 20 105/62 12:05 (76) 03/30/19 98.3 94 11:31 03/30/19 Room Air 09:00 03/28/19 2.0 22:27 Intake and Output 03/29/19 03/29/19 03/30/19 1515:00 23:00 07:00 IntakeIntake Total 400 ml 530 ml 400 ml OutputOutput Total 0 ml 0 ml BalanceBalance 400 ml 530 ml 400 ml Results Result Diagram: 03/29/19 0518 03/30/19 0710 Results 24hrs Laboratory Tests Test 03/29/19 17:03 03/29/19 20:22 03/30/19 07:10 03/30/19 07:31 Bedside Glucose 122 124 109 Sodium Level 135 Potassium Level 4.7 Chloride Level 101 Carbon Dioxide Level 18 L Anion Gap 16 H Blood Urea Nitrogen 31 H Creatinine 5.17 H Est Glomerular Filtrat 8 L Rate mL/min Glucose Level 116 Calcium Level 8.6 Hepatitis B Surface NEGATIVE Antigen Test 03/30/19 11:32 03/30/19 12:54 Bedside Glucose 99 Troponin I < 0.012 Medications Medication Current Medications Acetaminophen (Tylenol Tab) 650 mg Q6 PRN PO FOR FEVER; Start 03/29/19 at 03:00 Albuterol (Proventil 0.083% (Neb)) 2.5 mg Q4H PRN NEB WHEEZING AND SOB; Start 03/29/19 at 03:00 Apixaban (Eliquis) 2.5 mg DAILY PO Last administered on 03/30/19 08:15; Admin Dose 2.5 MG; Start 03/29/19 at 09:00 Atorvastatin Calcium (Lipitor) 20 mg QHS PO Last administered on 03/29/19 20:21; Admin Dose 20 MG; Start 03/29/19 at 21:00 Bisacodyl (Dulcolax) 5 mg BID PRN PO CONSTIPATION; Start 03/29/19 at 03:00 Folic Acid (Folic Acid) 1 mg DAILY PO Last administered on 03/30/19at 08:15; Admin Dose 1 MG; Start 03/29/19 at 09:00 Gabapentin (Neurontin) 300 mg TID PO Last administered on 03/30/19 08:15; Admin Dose 300 MG; Start 03/29/19 at 09:00 Acetaminophen/ Hydrocodone Bitart ([place] (5/325)) 1 tab Q6H PRN PO PAIN Last administered on 03/30/19 06:22; Admin Dose 1 TAB; Start 03/29/19 at 03:00 Loperamide HCl (Imodium Cap) 2 mg Q4H PRN PO NEEDED; Start 03/29/19 at 03:00 Multivit/Ca Carb/ B Cmplx/FA/Prenat (Suzie-Paula) 1 tab DAILY PO Last administered on 03/30/19 08:15; Admin Dose 1 TAB; Start 03/29/19 at 09:00 Sevelamer Carbonate (Renvela) 0.8 gm WITH MEALS PO Last administered on 03/30/19 08:15; Admin Dose 0.8 GM; Start 03/29/19 at 08:00 Sucralfate (Carafate) 1 gm AC MEALS AND BEDTIME PO Last administered on 03/30/19 06:22; Admin Dose 1 GM; Start 03/29/19 at 07:00 Ondansetron HCl (Zofran Inj) 4 mg Q6H PRN IV NAUSEA AND/OR VOMITING; Start 03/29/19 at 04:00 Pantoprazole (Protonix Iv) 40 mg DAILY@06 IV Last administered on 03/30/19at 06:21; Admin Dose 40 MG; Start 03/29/19 at 06:00 Vancomycin HCl (Vanco Iv Per Pharmacy) VANCOMYCIN PER PHARMACY PER PROTOCOL XX ; Start 03/29/19 at 04:00 Cefepime HCl 50 ml @ 100 mls/hr DAILY IVPB Last administered on 03/30/19at 11:32; Admin Dose 100 MLS/HR; Start 03/29/19 at 09:00 Insulin Aspart (Novolog Insulin Pen) NOVOLOG *MILD* ALGORITHM WITH MEALS BEDTIME SC ; Start 03/29/19 at 08:00 Miscellaneous Information (Pending [facility] Order For Wound Care) This patient davis... PRN PRN XX WOUND CARE; Start 03/29/19 at 07:30 Sodium Chloride 1,000 ml @ 20 mls/hr Q24H IV Last administered on 03/29/19at 11:51; Admin Dose 20 MLS/HR; Start 03/29/19 at 11:30 Al Hydrox/Mg Hydrox/Simethicone (Mag-Al Plus) 30 ml Q4H PRN PO GASTROINTESTINAL UPSET Last administered on 03/30/19at 12:54; Admin Dose 30 ML; Start 03/30/19 at 10:00 JOHANA KULKARNI NP March 30, 2019 14:10
--- NOTE | 2019-03-30 15:40 | CONS ---
DATE OF ADMISSION: 03/28/2019 DATE OF CONSULTATION: 03/30/2019 REFERRING PHYSICIAN: Virginia Gonzalez MD. REASON FOR CONSULTATION: Bilateral lower extremity gangrene. HISTORY OF PRESENT ILLNESS: This is a 63-year-old diabetic, hypertensive woman with end-stage renal disease. She is well known to me. She has chronic bilateral lower extremity peripheral arterial dis ease. She developed gangrene of the left hand. I have ligated her AV fistula several months ago. T he hand wounds are almost all healed and she has no pain there. She has gangrene of both heels that is dry gangrene and some gangrenous in the toes on the left foot. Basically, she has been in a [facility] nursing facility. She was brought back in because of pain and drainage from the right foot. She has a plantar wound on the right foot that has got some foul smelling drainage and she is having a lo t of pain. She has chronic Charcot deformity in both feet. PAST MEDICAL HISTORY: Again, significant for diabetes, hypertension, end-stage renal disease, AFib, had pneumonia, a cholecystectomy, has had multiple upper extremity AV accesses in the past, gastropar esis, peripheral arterial disease. MEDICATIONS: 1. Consist of Pepcid. 2. Eliquis. 3. Folate. 4. Lasix. 5. Losartan. 6. Suzie-Paula. 7. Atorvastatin. 8. Amitiza. 9. Benzoate. 10. Restoril. 11. Tylenol. 12. Loperamide. 13. Renagel. 14. Gabapentin. 15. Tramadol. 16. Linzess. 17. Pantoprazole. 18. Dilaudid. 19. Lipitor. 20. Vancomycin. 21. Insulin. ALLERGIES: 1. AMOXICILLIN. 2. CELEXA. SOCIAL HISTORY: She is a nonsmoker. She does not drink or use any illicit drugs. She is living at [facility] nursing [facility]. FAMILY HISTORY: Significant for diabetes in multiple family members. REVIEW OF SYSTEMS: She currently mainly complains of pain in the right foot. Denies any fevers, chi lls, nausea, vomiting, diarrhea. No abdominal or back pain. She has some mild pain in the heel on t he left, but there is mostly pain in the right foot. PHYSICAL EXAMINATION: GENERAL: She is an elderly woman. She is in no acute distress. She is actually getting di alyzed right now via the right IJ Perm-A-Cath. VITAL SIGNS: She has been afebrile. Blood pressure is 93/61, heart rate is 100, respiratory rate is 20. She is 96% sat on room air. EXTREMITIES: She has 2+ carotid and brachial pulses bilaterally. Radial pulses are not palpable. L eft hand is warm. The previous wounds have almost all healed. She has one small area where there is a little eschar on the fourth finger. LUNGS: Clear. HEART: Regular rate and rhythm. ABDOMEN: Obese, soft, nontender, nondistended. EXTREMITIES: She has 2+ femoral pulses bilaterally. Popliteal, DP and PT pulses are not palpable in either lower extremity. She has Charcot deformity in both feet. She has healed, dry gangrene in dori th feet. On the plantar right foot. There is a chronic wound there that is draining some foul smell ing fluid. I opened that up a little bit just to get the pus out. I used a scissor to just cut away some of the callus that had built up and drained out the purulent fluid. On the left foot, she has dry gangrene of the heel and the toes have multiple areas of dry gangrene as well. None of them are weeping. There is no sign of infection on the left. IMPRESSION: Infected right plantar foot ulcer with chronic arterial insufficiency. She has had mult iple angiography in the past. Mostly, her vessels are just very calcified but given that the new fin dings and the need for further debridement, we are going to schedule her for an angiogram for tomorro morning. She does have a tibial disease. I would say it is worse on the left than the right, but the right side currently seems to be the worst leg and is where she is having pain, so she is going t o need something done there more urgently. So, we will do an angiogram of both lower extremities, bu t then plan for intervention on the right, so we will go in on the left. I have her scheduled for to . Dictated By: LOUIS HUNT/ABHIJIT Conf#: [id number] DID#: [id number] CC: MONAE SCHULER DPM; ROGER BARRERA MD; [place] GONZALEZ;*EndCC*
--- NOTE | 2019-03-30 15:55 | RADRPT ---
Vent Rate: 108 bpm RR Interval: 0 msec DE Interval: 0 msec QRS Duration: 86 msec QT Interval: 360 msec QTC Interval: 482 msec P-R-T [place]: 0 - -63 - 113 degrees Atrial fibrillation with rapid ventricular response Left axis deviation Low voltage QRS Cannot rule out Anteroseptal infarct , age undetermined Abnormal ECG Electronically Signed By: Aj Tierney
--- NOTE | 2019-03-30 18:34 | RADRPT ---
Echocardiogram Report Patient Name: TROY GUTIERREZPatient ID: [id number] : 1955 (63y 11m)Study Date: 03/30/2019 12:15:48 PM Gender: FAccession #: [id number] Tech: Catherine Cordon [facility] Location: [facility] Ref.Physician: JACOB GONZALEZ Height(Cm): BSA: Weight(Kg): Quality: AdequateAccount #: Procedures: Echocardiographic Report: Transthoracic echocardiogram with complete 2D, M-Mode, and doppler examination. Indications: Chest Pain. Measurements: 2D/M Mode Doppler Measurement Value Normal Range Measurement Value Normal Range LVIDd 2D 4.3 [ 3.8 - 5.2 ] cm AV Peak Benjamin 1.2 [ 100.0 - 170.0 ] cm/sec LVIDs 2D 2.2 [ 2.2 - 3.5 ] cm AV Peak PG 6.0 [ 2.0 - 9.0 ] mmHg LVPWd 2D 1.3 [ 0.6 - 0.9 ] cm LVOT Peak Benjamin 0.8 [ 70.0 - 110.0 ] cm/sec IVSd 2D 1.2 [ 0.6 - 0.9 ] cm LVOT Peak PG 2.0 [ 2.0 - 6.0 ] mmHg AoR Diam 2D 2.6 [ 2.3 - 3.1 ] cm MV Peak Benjamin 1.5 [ 60.0 - 130.0 ] cm/sec EDV 2D 84.4 [ 46.0 - 106.0 ] ml MV Peak PG 9.0 [ 1.0 - 10.0 ] mmHg ESV 2D 16.6 [ 14.0 - 42.0 ] ml MV Mean Benjamin 0.9 cm/sec EF 2D 80.3 [ 54.0 - 74.0 ] percent MV Mean PG 4.0 mmHg LA Dimen 2D 4.1 [ 2.7 - 3.8 ] cm MV VTI 33.9 cm TR Peak Benjamin 3.1 [ 100.0 - 280.0 ] cm/sec TR Peak PG 39.0 mmHg RVSP 54.0 [ 10.0 - 36.0 ] mmHg RA Pressure 15.0 mmHg Findings: Left Ventricle: Hyperdynamic left ventricular systolic function. Normal left ventricular cavity size. Mild concentric left ventricular hypertrophy. Ejection fraction is visually estimated at 60-65 %. Abnormal Diastolic Function. Right Ventricle: Mild right ventricular systolic dysfunction. Mild enlargement of right ventricle. Mild right ventricular hypokinesis. Left Atrium: There is mild enlargement of left atrium. Right Atrium: There is mild enlargement of right atrium. Mitral Valve: Moderate mitral leaflet calcification. Moderate mitral annular calcification. Trace mitral regurgitation. Aortic Valve: Normal appearance of the aortic valve. No significant aortic stenosis or insufficiency. Tricuspid Valve: Normal appearance of the tricuspid valve. Estimated peak PA systolic pressure 54 mmHg. There is moderate tricuspid regurgitation. Pulmonic Valve: Pulmonic valve not well visualized. Pericardium: Trivial pericardial effusion. Aorta: Normal aortic root. IVC: Dilated IVC without respiratory collapse consistent with elevated right atrial pressure. Conclusions: Hyperdynamic left ventricular systolic function. Normal left ventricular cavity size. Mild concentric left ventricular hypertrophy. Ejection fraction is visually estimated at 60-65 %. Abnormal Diastolic Function. n. Mild right ventricular systolic dysfunction. Mild enlargement of right ventricle. Mild right ventricular hypokinesis. There is mild enlargement of left atrium. There is mild enlargement of right atrium. Moderate mitral leaflet calcification. Moderate mitral annular calcification. Trace mitral regurgitation. Normal appearance of the tricuspid valve. Estimated peak PA systolic pressure 54 mmHg. There is moderate tricuspid regurgitation. Electronically Signed By: Rock Flowers 2019-03-30 18:33:36 PDT
[2019-03-30] MEDS ORDERED: ALBUTEROL 0.5% (NEB) 2.5 MG/0.5 ML AMP ONE (19:50)
[2019-03-30] MEDS: ATORVASTATIN 20 MG TAB PO SCH (20:46)
[2019-03-30] MEDS: ZOLPIDEM 5 MG TAB PO PRN (22:36)
[2019-03-31] VITALS (22 sets, daily range): BP systolic 92–133; BP diastolic 46–63; PULSE 90–118; RESP 13–19
[2019-03-31] MEDS: PANTOPRAZOLE 40 MG INJ IV SCH (06:00)
[2019-03-31] MEDS: SUCRALFATE 1 GM TAB PO SCH ×4 (07:00→21:12)
[2019-03-31] MEDS ORDERED: MIDAZOLAM 1 MG/ML 2 ML INJ ONE (07:47)
[2019-03-31] MEDS ORDERED: LIDOCAINE 1% (MDV) 20 ML INJ ONE (07:47)
[2019-03-31] MEDS ORDERED: FENTAnyl 50 MCG/ML VIAL ONE (07:47)
[2019-03-31] MEDS ORDERED: HEPARIN 1000 UNITS/NS (A-LINE) 1,000 ML ONE (07:47)
[2019-03-31] MEDS: SEVELAMER CARBONATE 0.8 GM PKT PO SCH ×3 (08:00→17:09)
[2019-03-31] MEDS: INSULIN ASPART [NOVOLOG] 3 ML PEN SC SCH ×4 (08:00→21:00)
[2019-03-31] MEDS: APIXABAN 5 MG TABLET PO SCH (08:22)
[2019-03-31] MEDS: CEFEPIME 1GM/50 ML (PMX) 50 ML IVPB SCH (08:22)
[2019-03-31] MEDS: FOLIC ACID 1 MG TAB PO SCH (08:22)
[2019-03-31] MEDS: MULTIVIT/CA CARB/B CMPLX/FA TAB PO SCH (08:23)
[2019-03-31] MEDS: GABAPENTIN 300 MG CAP PO SCH ×3 (08:23→21:12)
[2019-03-31] MEDS ORDERED: VANCOMYCIN 1 GM 250 ML IVPB SCH ×2 (09:00→17:00)
--- NOTE | 2019-03-31 09:24 | SIPON ---
Date/Time of Note Date/Time of Note DATE: 03/31/19 TIME: 09:22 Operative Report Preoperative Diagnosis Bilateral foot gangrene Postoperative Diagnosis same Operation/Procedure Performed aortogram, BLE runoff, R posterior tibial artery angioplasty Surgeon see signature line assistant professor of english none Second assist: A Anesthesia: moderate sedation Estimated blood loss: minimal Transfusion Required none Specimen none Grafts/Implants none Complications none LOUIS DAY MD March 31, 2019 09:24
--- NOTE | 2019-03-31 10:54 | OPR ---
DATE OF OPERATION: 03/31/2019 PREOPERATIVE DIAGNOSIS: Bilateral lower extremity gangrene. POSTOPERATIVE DIAGNOSIS: Bilateral lower extremity gangrene. PROCEDURE PERFORMED: Abdominal aortogram, bilateral lower extremity runoff, right posterior tibial a rtery angioplasty. SURGEON: Louis Day M.D. ANESTHESIA: Local with sedation. ESTIMATED BLOOD LOSS: Minimal. COMPLICATIONS: No intraprocedural complications. INDICATIONS: A 63-year-old woman with end-stage renal disease, diabetes, hypertension, bilateral Nazia rcot foot. She has gangrene in both heels and has an infected ulcer on the right plantar surface of the foot. She also has some gangrenous toes on the left. I brought her in today for angiogram and p ossible intervention. PROCEDURE: The patient was brought to the clam bed laborer and placed on the table in the supine position. Left groin was prepped and draped in usual sterile fashion. I infiltrated over the left common femor al artery using 10 mL of 1% Xylocaine. Using micropuncture needle to enter the artery under ultrasou nd guidance. An 0.018 wire was inserted through the needle into the artery and the micropuncture she ath was advanced over the wire into the artery. I advanced an 0.035 Bentson wire up into the abdomin al aorta, exchanged the micropuncture sheath for a 5-Syrian sheath over wire and then advanced an Omn iflush catheter into the infrarenal aorta, I did in an aortogram. I advanced the catheter up and ove r the bifurcation using the Bentson wire for support. I advanced it into the right SFA and then did runoff down the right lower extremity. At the end of the procedure I pulled everything back and inje cted through the left femoral sheath and did runoff down the left lower extremity. FINDINGS OF ANGIOGRAPHY: The infrarenal aorta is widely patent. Both common external and internal i liac arteries are widely patent with no disease. Both common, superficial and profunda femoral arter ies are widely patent. No significant stenosis. The popliteal arteries bilaterally are patents abov e and below the knee with no significant stenosis. Bilaterally the peroneal artery is occluded. On the right, the posterior tibial artery is patent with about a 60 to 70% stenosis proximally. The ant erior tibial artery is patent all the way down and crosses the ankle into the foot. There is a paten t dorsalis pedis. The anterior tibial artery is dominant, bilaterally is much larger than the consumer relations specialist ior tibial and there is a patent pedal arch bilaterally. On the left, the anterior tibial artery is also patent all the way down, the posterior tibial artery has severe disease proximally, is probably a subtotal occlusion and then has very small going all the way down into the foot, but it is patent a ll the way down across the ankle into the foot, so I decided to treat the right posterior tibial gerard ry stenosis, although the anterior tibial was wide open. She has got a heel gangrene and a plantar w ound and needs as much perfusion as possible so I advanced 0.035 Advantage wire down into the poplite al artery and then exchanged the 5-Syrian sheath for a 6-Syrian 65 cm [place] destination sheath, wh ich I left in the popliteal artery. I gave the patient 5000 units of heparin intravenously. I then used the Advantage wire and Quick-Cross catheter to engage the origin of the posterior tibial. I adv anced a wire and the Quick-Cross down into the distal posterior tibial. I then exchanged for an V18 control wire through the Quick-Cross catheter then angioplastied the pretty much entire posterior tib ial from the ankle all the way up to its origin with a 2.5 x 220 mm balloon inflated to 6 atmospheres . There was no residual stenosis after inflation. The posterior tibial was wide open all the way do wn. I punctured the left groin secondary treat the left leg, but the right leg is where she is havin g a lot of pain and is having ongoing infection. So then I replaced the Advantage wire and then pull ed the sheath back into the left external iliac. I then exchanged for short 5-Syrian sheath and did runoff down the left lower extremity with findings as previously described. I was happy at the end o f the procedure. The puncture site was confirmed to be in the common femoral artery so I then used a n Angio-Seal device to close the left common femoral artery puncture site with good hemostasis. No c omplications. So just to re-summarize the findings of angiography, everything is patent down to the popliteal arter y below the knee. Then the peroneal artery is occluded bilaterally. The anterior tibial arteries bi laterally are widely patent and cross into the foot with good dorsalis pedis arteries bilaterally. T he left posterior tibial artery is severely diseased proximally but is patent more distally, although very small. The right posterior tibial artery had about a 60% to 70% stenosis proximally and there is patent distally which I treated the right posterior tibial artery with good result and no residual stenosis. She was then transferred to the recovery room in stable condition, tolerated the procedur e well without any complications. Dictated By: LOUIS HUNT/ABHIJIT Conf#: [id number] DID#: [id number] CC: ROGER BARRERA MD; JACOB GONZALEZ; MONAE SCHULER DPM; LOUIS DAY MD;*EndCC*
[2019-03-31] MEDS: HYDROCODONE/APAP (5/325) TAB PO PRN (11:29)
[2019-03-31] MEDS: SOD CHLORIDE 0.45% 1,000 ML IV SCH (11:30)
--- NOTE | 2019-03-31 13:45 | CONS ---
Assessment/Plan Assessment/Plan Hospital Course (Demo Recall) Sleeping, looks comfortable, no fevers overnight WBC 8.2 neutrophils 81.6. Indwelling: Right chest permacath. Microbiology: Blood cultures negative MRSA swab negative Allergy: Amoxicillin Antimicrobials: Vancomycin and cefepime Physical examination: This is a wasted well-developed fragile elderly woman who is awake the patient is in no distress. Head atraumatic normocephalic. Neck is supple. Chest rise symmetrical breath sounds diminished bases. Heart: S1-S2. Abdomen soft bowel sounds present. Extremities with bilateral lower extremities chronic changes and ulcerations Assessment: 1. Bilateral lower extremities diabetic ulceration 2. Right foot Charcot's joint 3. End-stage renal disease, hemodialysis dependent 4. Diabetes 5. Failure to thrive 6. Peripheral arterial disease, status post right posterior tibial artery angioplasty 03/01/19 Plan: Remains stable, continue abx, f/u podiatry and vascular surgery rec-s Consultation Date/Type/Reason Admit Date/Time Mar 28, 2019 at 16:57 Initial Consult Date 03/29/19 Type of Consult id Date/Time of Note DATE: 03/31/19 TIME: 13:43 Exam/Review of Systems Exam Vitals Vital Signs Date Temp Pulse Resp B/P (MAP) Pulse Ox O2 O2 Flow FiO2 Time Delivery Rate 03/31/19 109 12:00 03/31/19 98.3 15 100/48 96 Room Air 10:51 (65) 03/30/19 21 21:39 03/28/19 2.0 22:27 Intake and Output 03/30/19 03/30/19 03/31/19 1515:00 23:00 07:00 IntakeIntake Total 290 ml 1020 ml 620 ml OutputOutput Total 1000 ml 0 ml BalanceBalance -710 ml 1020 ml 620 ml Results Result Diagram: 03/31/19 0525 03/31/19 0525 Results 24hrs Laboratory Tests Test 03/30/19 17:19 03/30/19 19:36 03/30/19 20:45 03/31/19 05:23 Bedside Glucose 117 140 Troponin I < 0.012 0.013 Random Vancomycin Level 13.8 Test 03/31/19 05:25 03/31/19 08:03 03/31/19 11:28 White Blood Count 8.2 # Red Blood Count 3.91 L Hemoglobin 12.0 Hematocrit 37.2 Mean Corpuscular Volume 95.1 Mean Corpuscular 30.7 Hemoglobin Mean Corpuscular 32.3 Hemoglobin Concent Red Cell Distribution 18.2 H Width Platelet Count 195 Mean Platelet Volume 10.4 Immature Granulocytes % 0.500 H Neutrophils % 81.6 H Lymphocytes % 7.0 L Monocytes % 7.7 Eosinophils % 2.3 Basophils % 0.9 Nucleated Red Blood 0.0 Cells % Immature Granulocytes # 0.040 H Neutrophils # 6.7 Lymphocytes # 0.6 L Monocytes # 0.6 Eosinophils # 0.2 Basophils # 0.1 Nucleated Red Blood 0.0 Cells # Sodium Level 135 Potassium Level 4.9 Chloride Level 100 Carbon Dioxide Level 18 L Anion Gap 17 H Blood Urea Nitrogen 24 H Creatinine 4.26 H Est Glomerular Filtrat 10 L Rate mL/min Glucose Level 134 Calcium Level 8.5 Bedside Glucose 130 126 Medications Medication Current Medications Acetaminophen (Tylenol Tab) 650 mg Q6 PRN PO FOR FEVER; Start 03/29/19 at 03:00 Albuterol (Proventil 0.083% (Neb)) 2.5 mg Q4H PRN NEB WHEEZING AND SOB Last administered on 03/30/19 20:08; Admin Dose 2.5 MG; Start 03/29/19 at 03:00 Apixaban (Eliquis) 2.5 mg DAILY PO Last administered on 03/30/19 08:15; Admin Dose 2.5 MG; Start 03/29/19 at 09:00 Atorvastatin Calcium (Lipitor) 20 mg QHS PO Last administered on 03/30/19at 20:46; Admin Dose 20 MG; Start 03/29/19 at 21:00 Bisacodyl (Dulcolax) 5 mg BID PRN PO CONSTIPATION; Start 03/29/19 at 03:00 Folic Acid (Folic Acid) 1 mg DAILY PO Last administered on 03/30/19 08:15; Admin Dose 1 MG; Start 03/29/19 at 09:00 Gabapentin (Neurontin) 300 mg TID PO Last administered on 03/31/19 12:50; Admin Dose 300 MG; Start 03/29/19 at 09:00 Acetaminophen/ Hydrocodone Bitart ([place] (5/325)) 1 tab Q6H PRN PO PAIN Last administered on 03/30/19 21:25; Admin Dose 1 TAB; Start 03/29/19 at 03:00 Loperamide HCl (Imodium Cap) 2 mg Q4H PRN PO NEEDED; Start 03/29/19 at 03:00 Multivit/Ca Carb/ B Cmplx/FA/Prenat (Suzie-Paula) 1 tab DAILY PO Last administered on 03/30/19 08:15; Admin Dose 1 TAB; Start 03/29/19 at 09:00 Sevelamer Carbonate (Renvela) 0.8 gm WITH MEALS PO Last administered on 03/31/19 11:29; Admin Dose 0.8 GM; Start 03/29/19 at 08:00 Sucralfate (Carafate) 1 gm AC MEALS AND BEDTIME PO Last administered on 03/31/19 11:29; Admin Dose 1 GM; Start 03/29/19 at 07:00 Ondansetron HCl (Zofran Inj) 4 mg Q6H PRN IV NAUSEA AND/OR VOMITING; Start 03/29/19 at 04:00 Pantoprazole (Protonix Iv) 40 mg DAILY@06 IV Last administered on 03/30/19 06:21; Admin Dose 40 MG; Start 03/29/19 at 06:00 Vancomycin HCl (Vanco Iv Per Pharmacy) VANCOMYCIN PER PHARMACY PER PROTOCOL XX ; Start 03/29/19 at 04:00 Cefepime HCl 50 ml @ 100 mls/hr DAILY IVPB Last administered on 03/30/19 11:32; Admin Dose 100 MLS/HR; Start 03/29/19 at 09:00 Insulin Aspart (Novolog Insulin Pen) NOVOLOG *MILD* ALGORITHM WITH MEALS BEDTIME SC ; Start 03/29/19 at 08:00 Miscellaneous Information (Pending [facility] Order For Wound Care) This patient davis... PRN PRN XX WOUND CARE; Start 03/29/19 at 07:30 Sodium Chloride 1,000 ml @ 20 mls/hr Q24H IV Last administered on 03/29/19 11:51; Admin Dose 20 MLS/HR; Start 03/29/19 at 11:30 Al Hydrox/Mg Hydrox/Simethicone (Mag-Al Plus) 30 ml Q4H PRN PO GASTROINTESTINAL UPSET Last administered on 03/30/19 12:54; Admin Dose 30 ML; Start 03/30/19 at 10:00 Zolpidem Tartrate (Ambien) 5 mg HS PRN PO INSOMNIA Last administered on at 22:36; Admin Dose 5 MG; Start 03/30/19 at 22:30 JOHANA KULKARNI NP March 31, 2019 13:45
--- NOTE | 2019-03-31 13:53 | PN ---
Date/Time of Note Date/Time of Note DATE: 03/31/19 TIME: 13:53 Assessment/Plan VTE Prophylaxis Risk score (from [facility])>0 risk: 8 SCD applied (from [facility] [place]): No SCD contraindicated: bilateral LE trauma Pharmacological prophylaxis: apixaban Lines/Catheters IV Catheter Type (from [facility]): Peripheral IV Urinary Cath still in place: No Assessment/Plan Hospital Course 1. Right foot gangrene and left foot necrotic ulcer, likely secondary to severe peripheral vascular disease.Arteriogram showed: Occlusion of the left posterior tibialis artery. Findings are new when compared to the prior examination. Diffuse monophasic flow throughout the bilateral lower extremity arterial system. Findings are suggestive of inflow disease. S/p R posterior tibial artery angioplasty 03/31/[address] Lemus 2. Leukocytosis secondary to number 1, resolving 3. Sepsis secondary to number 1. with hypotension 4. Diabetes. 5. End-stage renal disease, on hemodialysis. 6. Diabetic neuropathy, nephropathy. 7. Hypertension, currently hypotensive. 8. Secondary hyperparathyroidism. 9. Chronic atrial fibrillation. 10. History of peripheral vascular disease. 11. Hypercholesterolemia. 12. History of gastritis. 13. History of gastroparesis. 14. obesity Assessment/Plan - HD yesterday - will get EKG/TROP/echo/ - Angiogram BLE with dr Lemus today done - iv abx per ID - appreciate podiatry recs -wound care - cw Eliquis -cw PPI/SUCRALFATE Result Diagram: 03/31/19 0525 03/31/19 0525 Results 24hrs Laboratory Tests Test 03/30/19 17:19 03/30/19 19:36 03/30/19 20:45 03/31/19 05:23 Bedside Glucose 117 140 Troponin I < 0.012 0.013 Random Vancomycin Level 13.8 Test 03/31/19 05:25 03/31/19 08:03 03/31/19 11:28 White Blood Count 8.2 # Red Blood Count 3.91 L Hemoglobin 12.0 Hematocrit 37.2 Mean Corpuscular Volume 95.1 Mean Corpuscular 30.7 Hemoglobin Mean Corpuscular 32.3 Hemoglobin Concent Red Cell Distribution 18.2 H Width Platelet Count 195 Mean Platelet Volume 10.4 Immature Granulocytes % 0.500 H Neutrophils % 81.6 H Lymphocytes % 7.0 L Monocytes % 7.7 Eosinophils % 2.3 Basophils % 0.9 Nucleated Red Blood 0.0 Cells % Immature Granulocytes # 0.040 H Neutrophils # 6.7 Lymphocytes # 0.6 L Monocytes # 0.6 Eosinophils # 0.2 Basophils # 0.1 Nucleated Red Blood 0.0 Cells # Sodium Level 135 Potassium Level 4.9 Chloride Level 100 Carbon Dioxide Level 18 L Anion Gap 17 H Blood Urea Nitrogen 24 H Creatinine 4.26 H Est Glomerular Filtrat 10 L Rate mL/min Glucose Level 134 Calcium Level 8.5 Bedside Glucose 130 126 Subjective 24 Hr Interval Summary Musculoskeletal: restricted range of motion, swelling (lower legs) Exam/Review of Systems Exam Vitals Vital Signs Date Temp Pulse Resp B/P (MAP) Pulse Ox O2 O2 Flow FiO2 Time Delivery Rate 03/31/19 109 12:00 03/31/19 98.3 15 100/48 96 Room Air 10:51 (65) 03/30/19 21 21:39 03/28/19 2.0 22:27 Intake and Output 03/30/19 03/30/19 03/31/19 1515:00 23:00 07:00 IntakeIntake Total 290 ml 1020 ml 620 ml OutputOutput Total 1000 ml 0 ml BalanceBalance -710 ml 1020 ml 620 ml Exam right chest Permcath Constitutional: alert, oriented Head: normocephalic Eyes: nl conjunctiva Neck: supple Respiratory: clear to auscultation Cardiovascular: regular rate and rhythm (afib) Musculoskeletal: muscle weakness, swelling, other (BLE wounds) Results Results 24hrs Laboratory Tests Test 03/30/19 17:19 03/30/19 19:36 03/30/19 20:45 03/31/19 05:23 Bedside Glucose 117 140 Troponin I < 0.012 0.013 Random Vancomycin Level 13.8 Test 03/31/19 05:25 03/31/19 08:03 03/31/19 11:28 White Blood Count 8.2 # Red Blood Count 3.91 L Hemoglobin 12.0 Hematocrit 37.2 Mean Corpuscular Volume 95.1 Mean Corpuscular 30.7 Hemoglobin Mean Corpuscular 32.3 Hemoglobin Concent Red Cell Distribution 18.2 H Width Platelet Count 195 Mean Platelet Volume 10.4 Immature Granulocytes % 0.500 H Neutrophils % 81.6 H Lymphocytes % 7.0 L Monocytes % 7.7 Eosinophils % 2.3 Basophils % 0.9 Nucleated Red Blood 0.0 Cells % Immature Granulocytes # 0.040 H Neutrophils # 6.7 Lymphocytes # 0.6 L Monocytes # 0.6 Eosinophils # 0.2 Basophils # 0.1 Nucleated Red Blood 0.0 Cells # Sodium Level 135 Potassium Level 4.9 Chloride Level 100 Carbon Dioxide Level 18 L Anion Gap 17 H Blood Urea Nitrogen 24 H Creatinine 4.26 H Est Glomerular Filtrat 10 L Rate mL/min Glucose Level 134 Calcium Level 8.5 Bedside Glucose 130 126 Medications Medication Current Medications Acetaminophen (Tylenol Tab) 650 mg Q6 PRN PO FOR FEVER; Start 03/29/19 at 03:00 Albuterol (Proventil 0.083% (Neb)) 2.5 mg Q4H PRN NEB WHEEZING AND SOB Last administered on 03/30/19 20:08; Admin Dose 2.5 MG; Start 03/29/19 at 03:00 Apixaban (Eliquis) 2.5 mg DAILY PO Last administered on 03/30/19 08:15; Admin Dose 2.5 MG; Start 03/29/19 at 09:00 Atorvastatin Calcium (Lipitor) 20 mg QHS PO Last administered on 03/30/19 20:46; Admin Dose 20 MG; Start 03/29/19 at 21:00 Bisacodyl (Dulcolax) 5 mg BID PRN PO CONSTIPATION; Start 03/29/19 at 03:00 Folic Acid (Folic Acid) 1 mg DAILY PO Last administered on 03/30/19 08:15; Admin Dose 1 MG; Start 03/29/19 at 09:00 Gabapentin (Neurontin) 300 mg TID PO Last administered on 03/31/19 12:50; Admin Dose 300 MG; Start 03/29/19 at 09:00 Acetaminophen/ Hydrocodone Bitart ([place] (5/325)) 1 tab Q6H PRN PO PAIN Last administered on 03/30/19 21:25; Admin Dose 1 TAB; Start 03/29/19 at 03:00 Loperamide HCl (Imodium Cap) 2 mg Q4H PRN PO NEEDED; Start 03/29/19 at 03:00 Multivit/Ca Carb/ B Cmplx/FA/Prenat (Suzie-Paula) 1 tab DAILY PO Last administered on 03/30/19 08:15; Admin Dose 1 TAB; Start 03/29/19 at 09:00 Sevelamer Carbonate (Renvela) 0.8 gm WITH MEALS PO Last administered on 03/31/19 11:29; Admin Dose 0.8 GM; Start 03/29/19 at 08:00 Sucralfate (Carafate) 1 gm AC MEALS AND BEDTIME PO Last administered on 03/31/19 11:29; Admin Dose 1 GM; Start 03/29/19 at 07:00 Ondansetron HCl (Zofran Inj) 4 mg Q6H PRN IV NAUSEA AND/OR VOMITING; Start 03/29 at 04:00 Pantoprazole (Protonix Iv) 40 mg DAILY@06 IV Last administered on 03/30/19 06:21; Admin Dose 40 MG; Start 03/29/19 at 06:00 Vancomycin HCl (Vanco Iv Per Pharmacy) VANCOMYCIN PER PHARMACY PER PROTOCOL XX ; Start 03/29/19 at 04:00 Cefepime HCl 50 ml @ 100 mls/hr DAILY IVPB Last administered on 03/30/19 11:32; Admin Dose 100 MLS/HR; Start 03/29/19 at 09:00 Insulin Aspart (Novolog Insulin Pen) NOVOLOG *MILD* ALGORITHM WITH MEALS BEDTIME SC ; Start 03/29/19 at 08:00 Miscellaneous Information (Pending [facility] Order For Wound Care) This patient davis... PRN PRN XX WOUND CARE; Start 03/29/19 at 07:30 Sodium Chloride 1,000 ml @ 20 mls/hr Q24H IV Last administered on 03/29/19 11:51; Admin Dose 20 MLS/HR; Start 03/29/19 at 11:30 Al Hydrox/Mg Hydrox/Simethicone (Mag-Al Plus) 30 ml Q4H PRN PO GASTROINTESTINAL UPSET Last administered on 03/30/19 12:54; Admin Dose 30 ML; Start 03/30/19 at 10:00 Zolpidem Tartrate (Ambien) 5 mg HS PRN PO INSOMNIA Last administered on 03/30/19 22:36; Admin Dose 5 MG; Start 03/30/19 at 22:30 KENNY TERRAZAS March 31, 2019 13:53
[2019-03-31] MEDS: ZINC SULFATE 220 MG CAP PO SCH (17:10)
[2019-03-31] MEDS: ATORVASTATIN 20 MG TAB PO SCH (21:12)
[2019-04-01] VITALS (17 sets, daily range): BP systolic 93–138; BP diastolic 54–79; PULSE 103–124; RESP 16–21
[2019-04-01] MEDS: PANTOPRAZOLE 40 MG INJ IV SCH (06:00)
[2019-04-01] MEDS: INSULIN ASPART [NOVOLOG] 3 ML PEN SC SCH ×4 (07:33→21:00)
[2019-04-01] MEDS: SEVELAMER CARBONATE 0.8 GM PKT PO SCH ×3 (07:33→17:05)
[2019-04-01] MEDS: SUCRALFATE 1 GM TAB PO SCH ×4 (07:33→21:49)
[2019-04-01] MEDS: CEFEPIME 1GM/50 ML (PMX) 50 ML IVPB SCH (08:47)
[2019-04-01] MEDS: MULTIVIT/CA CARB/B CMPLX/FA TAB PO SCH (08:48)
[2019-04-01] MEDS: GABAPENTIN 300 MG CAP PO SCH ×3 (08:48→21:50)
[2019-04-01] MEDS: FOLIC ACID 1 MG TAB PO SCH (08:48)
[2019-04-01] MEDS: APIXABAN 5 MG TABLET PO SCH (08:48)
[2019-04-01] MEDS: ZINC SULFATE 220 MG CAP PO SCH (08:48)
--- NOTE | 2019-04-01 10:42 | CONS ---
Consultation Date/Type/Reason Admit Date/Time Mar 28, 2019 at 16:57 Initial Consult Date SUBJECTIVE: PT is awake, afebrile, no acute distress. Resting in bed. S/p R posterior tibial artery angioplasty 03/31/[address] Lemus VS: stable T: 98.0 LABS: Reviewed. WBC-8.3 Indwelling: Right chest permacath. Microbiology: Blood cultures negative MRSA swab negative Allergy: Amoxicillin Antimicrobials: Vancomycin and cefepime Physical examination: GEN: This is a wasted well-developed fragile elderly woman, who is aw burak the patient is in no distress. HENT: Head atraumatic normocephalic. Neck is supple. PULM: Chest rise symmetrical breath, sounds diminished bases. Heart: S1-S2. Abdomen soft bowel sounds present. Extremities with bilateral lower extremities chronic changes and ulcerations. Assessment: 1. Bilateral lower extremities diabetic ulceration 2. Right foot Charcot's joint 3. End-stage renal disease, hemodialysis dependent 4. Diabetes 5. Failure to thrive 6. Peripheral arterial disease, status post right posterior tibial artery angioplasty 03/31/19 Plan: PT is stable. Continue current abx, . Podiatry and vascular surgery rec-s. Date/Time of Note DATE: 04/01/19 TIME: 10:38 Exam/Review of Systems Exam Vitals Vital Signs Date Temp Pulse Resp B/P (MAP) Pulse Ox O2 O2 Flow FiO2 Time Delivery Rate 04/01/19 98.0 109 16 120/54 98 Room Air 07:29 (76) 03/30/19 21 21:39 03/28/19 2.0 22:27 Intake and Output 03/31/19 03/31/19 04/01/19 1515:00 23:00 07:00 IntakeIntake Total 240 ml 120 ml 300 ml BalanceBalance 240 ml 120 ml 300 ml Results Result Diagram: 04/01/19 0505 04/01/19 0505 Results 24hrs Laboratory Tests Test 03/31/19 11:28 03/31/19 17:13 03/31/19 18:09 03/31/19 21:11 Bedside Glucose 126 156 138 124 Test 04/01/19 05:05 04/01/19 07:33 White Blood Count 8.3 Red Blood Count 4.13 L Hemoglobin 12.6 Hematocrit 38.2 Mean Corpuscular Volume 92.5 Mean Corpuscular 30.5 Hemoglobin Mean Corpuscular 33.0 Hemoglobin Concent Red Cell Distribution 18.2 H Width Platelet Count 193 Mean Platelet Volume 9.6 Immature Granulocytes % 0.800 H Neutrophils % 79.9 H Lymphocytes % 5.8 L Monocytes % 8.6 Eosinophils % 3.9 Basophils % 1.0 Nucleated Red Blood 0.0 Cells % Immature Granulocytes # 0.070 H Neutrophils # 6.6 Lymphocytes # 0.5 L Monocytes # 0.7 Eosinophils # 0.3 Basophils # 0.1 Nucleated Red Blood 0.0 Cells # Sodium Level 134 L Potassium Level 4.8 Chloride Level 98 Carbon Dioxide Level 19 L Anion Gap 17 H Blood Urea Nitrogen 28 H Creatinine 4.92 H Est Glomerular Filtrat 9 L Rate mL/min Glucose Level 117 Hemoglobin A1c 5.9 Uric Acid 5.1 Calcium Level 8.4 Phosphorus Level 3.6 Vitamin D 1,25-Dihydroxy < 12.8 L Bedside Glucose 108 Medications Medication Current Medications Acetaminophen (Tylenol Tab) 650 mg Q6 PRN PO FOR FEVER; Start 03/29/19 at 03:00 Albuterol (Proventil 0.083% (Neb)) 2.5 mg Q4H PRN NEB WHEEZING AND SOB Last administered on 03/30/19 20:08; Admin Dose 2.5 MG; Start 03/29/19 at 03:00 Apixaban (Eliquis) 2.5 mg DAILY PO Last administered on 03/30/19 08:15; Admin Dose 2.5 MG; Start 03/29/19 at 09:00 Atorvastatin Calcium (Lipitor) 20 mg QHS PO Last administered on 03/31/19 21:12; Admin Dose 20 MG; Start 03/29/19 at 21:00 Bisacodyl (Dulcolax) 5 mg BID PRN PO CONSTIPATION; Start 03/29/19 at 03:00 Folic Acid (Folic Acid) 1 mg DAILY PO Last administered on 03/30/19 08:15; Admin Dose 1 MG; Start 03/29/19 at 09:00 Gabapentin (Neurontin) 300 mg TID PO Last administered on 03/31/19 21:12; Admin Dose 300 MG; Start 03/29/19 at 09:00 Acetaminophen/ Hydrocodone Bitart ([place] (5/325)) 1 tab Q6H PRN PO PAIN Last administered on 03/30/19 21:25; Admin Dose 1 TAB; Start 03/29/19 at 03:00 Loperamide HCl (Imodium Cap) 2 mg Q4H PRN PO NEEDED; Start 03/29/19 at 03:00 Multivit/Ca Carb/ B Cmplx/FA/Prenat (Suzie-Paula) 1 tab DAILY PO Last administe red on 03/30/19at 08:15; Admin Dose 1 TAB; Start 03/29/19 at 09:00 Sevelamer Carbonate (Renvela) 0.8 gm WITH MEALS PO Last administered on 04/01/19 07:33; Admin Dose 0.8 GM; Start 03/29/19 at 08:00 Sucralfate (Carafate) 1 gm AC MEALS AND BEDTIME PO Last administered on 04/01/19 07:33; Admin Dose 1 GM; Start 03/29/19 at 07:00 Ondansetron HCl (Zofran Inj) 4 mg Q6H PRN IV NAUSEA AND/OR VOMITING; Start 03/29/19 at 04:00 Pantoprazole (Protonix Iv) 40 mg DAILY@06 IV Last administered on 03/30/19at 06:21; Admin Dose 40 MG; Start 03/29/19 at 06:00 Vancomycin HCl (Vanco Iv Per Pharmacy) VANCOMYCIN PER PHARMACY PER PROTOCOL XX ; Start 03/29/19 at 04:00 Cefepime HCl 50 ml @ 100 mls/hr DAILY IVPB Last administered on 03/30/19at 11:32; Admin Dose 100 MLS/HR; Start 03/29/19 at 09:00 Insulin Aspart (Novolog Insulin Pen) NOVOLOG *MILD* ALGORITHM WITH MEALS BEDTIME SC ; Start 03/29/19 at 08:00 Miscellaneous Information (Pending [facility] Order For Wound Care) This patient davis... PRN PRN XX WOUND CARE; Start 03/29/19 at 07:30 Al Hydrox/Mg Hydrox/Simethicone (Mag-Al Plus) 30 ml Q4H PRN PO GASTROINTESTINAL UPSET Last administered on 03/30/19at 12:54; Admin Dose 30 ML; Start 03/30/19 at 10:00 Zolpidem Tartrate (Ambien) 5 mg HS PRN PO INSOMNIA Last administered on 03/30/19at 22:36; Admin Dose 5 MG; Start 03/30/19 at 22:30 Zinc Sulfate (Zinc Sulfate) 220 mg DAILY PO Last administered on 03/31/19at 17:10; Admin Dose 220 MG; Start 03/31/19 at 14:00 DEEPA SHARP April 01, 2019 10:42
--- NOTE | 2019-04-01 15:13 | PN ---
Date/Time of Note Date/Time of Note DATE: 04/01/19 TIME: 15:13 Assessment/Plan VTE Prophylaxis Risk score (from [facility] [place]0 risk: 8 SCD applied (from [facility] [place]): No SCD contraindicated: other Pharmacological prophylaxis: apixaban Lines/Catheters IV C[facility]ter Type (from [facility] Saline Lock Urinary Cath still in place: No Assessment/Plan Hospital Course 1. Right foot gangrene and left foot necrotic ulcer, likely secondary to severe peripheral vascular disease.Arteriogram showed: Occlusion of the left posterior tibialis artery. Findings are new when compared to the prior examination. Diffuse monophasic flow throughout the bilateral lower extremity arterial system. Findings are suggestive of inflow disease. S/p R posterior tibial artery angioplasty 03/31/[address] Lemus 2. Leukocytosis secondary to number 1, resolving 3. Sepsis secondary to number 1. with hypotension 4. Diabetes. 5. End-stage renal disease, on hemodialysis. 6. Diabetic neuropathy, nephropathy. 7. Hypertension, currently hypotensive. 8. Secondary hyperparathyroidism. 9. Chronic atrial fibrillation. 10. History of peripheral vascular disease. 11. Hypercholesterolemia. 12. History of gastritis. 13. History of gastroparesis. 14. obesity Assessment/Plan - HD today -Troponin is negative -echo 60-65 %. Abnormal Diastolic Function. - Angiogram BLE with dr Lemus today done - iv abx per ID - appreciate podiatry recs -wound care - cw Eliquis -cw PPI/SUCRALFATE Result Diagram: 04/01/19 0505 04/01/19 0505 Results 24hrs Laboratory Tests Test 03/31/19 17:13 03/31/19 18:09 03/31/19 21:11 04/01/19 05:05 Bedside Glucose 156 138 124 White Blood Count 8.3 Red Blood Count 4.13 L Hemoglobin 12.6 Hematocrit 38.2 Mean Corpuscular Volume 92.5 Mean Corpuscular 30.5 Hemoglobin Mean Corpuscular 33.0 Hemoglobin Concent Red Cell Distribution 18.2 H Width Platelet Count 193 Mean Platelet Volume 9.6 Immature Granulocytes % 0.800 H Neutrophils % 79.9 H Lymphocytes % 5.8 L Monocytes % 8.6 Eosinophils % 3.9 Basophils % 1.0 Nucleated Red Blood 0.0 Cells % Immature Granulocytes # 0.070 H Neutrophils # 6.6 Lymphocytes # 0.5 L Monocytes # 0.7 Eosinophils # 0.3 Basophils # 0.1 Nucleated Red Blood 0.0 Cells # Sodium Level 134 L Potassium Level 4.8 Chloride Level 98 Carbon Dioxide Level 19 L Anion Gap 17 H Blood Urea Nitrogen 28 H Creatinine 4.92 H Est Glomerular Filtrat 9 L Rate mL/min Glucose Level 117 Hemoglobin A1c 5.9 Uric Acid 5.1 Calcium Level 8.4 Phosphorus Level 3.6 Vitamin D 1,25-Dihydroxy < 12.8 L Test 04/01/19 07:33 04/01/19 12:39 Bedside Glucose 108 145 Subjective 24 Hr Interval Summary Respiratory: shortness of breath Gastrointestinal: no complaints Exam/Review of Systems Exam Vitals Vital Signs Date Temp Pulse Resp B/P (MAP) Pulse Ox O2 O2 Flow FiO2 Time Delivery Rate 04/01/19 98.3 109 18 118/75 97 Room Air 15:00 (89) 03/30/19 21 21:39 03/28/19 2.0 22:27 Intake and Output 03/31/19 03/31/19 04/01/19 1515:00 23:00 07:00 IntakeIntake Total 240 ml 120 ml 300 ml BalanceBalance 240 ml 120 ml 300 ml Exam right chest perm cath Constitutional: alert, oriented Head: normocephalic ENMT: nl external ears & nose Neck: supple Respiratory: clear to auscultation Musculoskeletal: swelling, other (left foot wounds ampt. toes) Results Results 24hrs Laboratory Tests Test 03/31/19 17:13 03/31/19 18:09 03/31/19 21:11 04/01/19 05:05 Bedside Glucose 156 138 124 White Blood Count 8.3 Red Blood Count 4.13 L Hemoglobin 12.6 Hematocrit 38.2 Mean Corpuscular Volume 92.5 Mean Corpuscular 30.5 Hemoglobin Mean Corpuscular 33.0 Hemoglobin Concent Red Cell Distribution 18.2 H Width Platelet Count 193 Mean Platelet Volume 9.6 Immature Granulocytes % 0.800 H Neutrophils % 79.9 H Lymphocytes % 5.8 L Monocytes % 8.6 Eosinophils % 3.9 Basophils % 1.0 Nucleated Red Blood 0.0 Cells % Immature Granulocytes # 0.070 H Neutrophils # 6.6 Lymphocytes # 0.5 L Monocytes # 0.7 Eosinophils # 0.3 Basophils # 0.1 Nucleated Red Blood 0.0 Cells # Sodium Level 134 L Potassium Level 4.8 Chloride Level 98 Carbon Dioxide Level 19 L Anion Gap 17 H Blood Urea Nitrogen 28 H Creatinine 4.92 H Est Glomerular Filtrat 9 L Rate mL/min Glucose Level 117 Hemoglobin A1c 5.9 Uric Acid 5.1 Calcium Level 8.4 Phosphorus Level 3.6 Vitamin D 1,25-Dihydroxy < 12.8 L Test 04/01/19 07:33 04/01/19 12:39 Bedside Glucose 108 145 Medications Medication Current Medications Acetaminophen (Tylenol Tab) 650 mg Q6 PRN PO FOR FEVER Last administered on 04/01/19 14:30; Admin Dose 650 MG; Start 03/29/19 at 03:00 Albuterol (Proventil 0.083% (Neb)) 2.5 mg Q4H PRN NEB WHEEZING AND SOB Last administered on 03/30/19 20:08; Admin Dose 2.5 MG; Start 03/29/19 at 03:00 Apixaban (Eliquis) 2.5 mg DAILY PO Last administered on 03/30/19 08:15; Admin Dose 2.5 MG; Start 03/29/19 at 09:00 Atorvastatin Calcium (Lipitor) 20 mg QHS PO Last administered on 03/31/19 21:12; Admin Dose 20 MG; Start 03/29/19 at 21:00 Bisacodyl (Dulcolax) 5 mg BID PRN PO CONSTIPATION; Start 03/29/19 at 03:00 Folic Acid (Folic Acid) 1 mg DAILY PO Last administered on 03/30/19 08:15; Admin Dose 1 MG; Start 03/29/19 at 09:00 Gabapentin (Neurontin) 300 mg TID PO Last administered on 04/01/19 12:41; Admin Dose 300 MG; Start 03/29/19 at 09:00 Acetaminophen/ Hydrocodone Bitart ([place] (5/325)) 1 tab Q6H PRN PO PAIN Last administered on 03/30/19 21:25; Admin Dose 1 TAB; Start 03/29/19 at 03:00 Loperamide HCl (Imodium Cap) 2 mg Q4H PRN PO NEEDED; Start 03/29/19 at 03:00 Multivit/Ca Carb/ B Cmplx/FA/Prenat (Suzie-Paula) 1 tab DAILY PO Last administered on 03/30/19 08:15; Admin Dose 1 TAB; Start 03/29/19 at 09:00 Sevelamer Carbonate (Renvela) 0.8 gm WITH MEALS PO Last administered on 04/01/19 12:42; Admin Dose 0.8 GM; Start 03/29/19 at 08:00 Sucralfate (Carafate) 1 gm AC MEALS AND BEDTIME PO Last administered on 04/01/19 12:41; Admin Dose 1 GM; Start 03/29/19 at 07:00 Ondansetron HCl (Zofran Inj) 4 mg Q6H PRN IV NAUSEA AND/OR VOMITING; Start 03/29/19 at 04:00 Pantoprazole (Protonix Iv) 40 mg DAILY@06 IV Last administered on 03/30/19 06:21; Admin Dose 40 MG; Start 03/29/19 at 06:00 Vancomycin HCl (Vanco Iv Per Pharmacy) VANCOMYCIN PER PHARMACY PER PROTOCOL XX ; Start 03/29/19 at 04:00 Cefepime HCl 50 ml @ 100 mls/hr DAILY IVPB Last administered on 03/30/19 11:32; Admin Dose 100 MLS/HR; Start 03/29/19 at 09:00 Insulin Aspart (Novolog Insulin Pen) NOVOLOG *MILD* ALGORITHM WITH MEALS BEDTIME SC ; Start 03/29/19 at 08:00 Miscellaneous Information (Pending [facility] Order For Wound Care) This patient davis... PRN PRN XX WOUND CARE; Start 03/29/19 at 07:30 Al Hydrox/Mg Hydrox/Simethicone (Mag-Al Plus) 30 ml Q4H PRN PO GASTROINTESTINAL UPSET Last administered on 03/30/19 12:54; Admin Dose 30 ML; Start 03/30/19 at 10:00 Zolpidem Tartrate (Ambien) 5 mg HS PRN PO INSOMNIA Last administered on 03/30/19 22:36; Admin Dose 5 MG; Start 03/30/19 at 22:30 Zinc Sulfate (Zinc Sulfate) 220 mg DAILY PO Last administered on 03/31/19 17:10; Admin Dose 220 MG; Start 03/31/19 at 14:00 KENNY TERRAZAS April 01, 2019 15:13
[2019-04-01] MEDS ORDERED: HYDROmorphONE 4 MG TAB PO PRN (17:00)
[2019-04-01] MEDS ORDERED: TRAMADOL HCL 100 MG PO SCH (21:00)
[2019-04-01] MEDS ORDERED: HEPARIN 1000 UNITS/ML 10 ML INJ CATHETER ONE (21:30)
[2019-04-01] MEDS: ATORVASTATIN 20 MG TAB PO SCH (21:49)
[2019-04-01] MEDS: traMADol 50 MG TAB PO SCH (21:50)
[2019-04-01] MEDS: ZOLPIDEM 5 MG TAB PO PRN (23:42)
[2019-04-02] VITALS (11 sets, daily range): BP systolic 108–135; BP diastolic 50–76; PULSE 87–102; RESP 18–20
[2019-04-02] MEDS: SUCRALFATE 1 GM TAB PO SCH ×4 (06:10→21:10)
[2019-04-02] MEDS: PANTOPRAZOLE 40 MG INJ IV SCH (06:10)
[2019-04-02] MEDS: INSULIN ASPART [NOVOLOG] 3 ML PEN SC SCH ×4 (08:00→21:00)
[2019-04-02] MEDS: CEFEPIME 1GM/50 ML (PMX) 50 ML IVPB SCH (09:33)
[2019-04-02] MEDS: BISACODYL (EC) 5 MG TAB PO PRN (09:36)
[2019-04-02] MEDS: APIXABAN 5 MG TABLET PO SCH (09:36)
[2019-04-02] MEDS: MULTIVIT/CA CARB/B CMPLX/FA TAB PO SCH (09:36)
[2019-04-02] MEDS: FOLIC ACID 1 MG TAB PO SCH (09:36)
[2019-04-02] MEDS: SEVELAMER CARBONATE 0.8 GM PKT PO SCH ×3 (09:36→17:27)
[2019-04-02] MEDS: traMADol 50 MG TAB PO SCH ×3 (09:36→21:11)
[2019-04-02] MEDS: ZINC SULFATE 220 MG CAP PO SCH (09:36)
[2019-04-02] MEDS: GABAPENTIN 300 MG CAP PO SCH ×3 (09:36→21:11)
--- NOTE | 2019-04-02 11:47 | CONS ---
Consultation Date/Type/Reason Admit Date/Time Mar 28, 2019 at 16:57 Initial Consult Date SUBJECTIVE: PT is asleep, afebrile, no acute distress. No acute events over night. S/p R posterior tibial artery angioplasty 03/31/[address] Lemus VS: stable T: 98.0 LABS: Reviewed. WBC-7.9 Indwelling: Right chest permacath. Microbiology: Blood cultures negative MRSA swab negative Allergy: Amoxicillin Antimicrobials: Vancomycin and cefepime Physical examination: GEN: This is a wasted well-developed fragile elderly woman, who is awake the patient is in no distress. HENT: Head atraumatic normocephalic. Neck is supple. PULM: Chest rise symmetrical breath, sounds diminished bases. Heart: S1-S2. Abdomen soft bowel sounds present. Extremities with bilateral lower extremities chronic changes and ulcerations. Assessment: 1. Bilateral lower extremities diabetic ulceration 2. Right foot Charcot's joint 3. End-stage renal disease, hemodialysis dependent 4. Diabetes 5. Failure to thrive 6. Peripheral arterial disease, status post right posterior tibial artery angioplasty 03/31/19 Plan: PT is stable. Continue current abx, . Podiatry and vascular surgery rec-s. Date/Time of Note DATE: 04/02/19 TIME: 11:46 Exam/Review of Systems Exam Vitals Vital Signs Date Temp Pulse Resp B/P (MAP) Pulse Ox O2 O2 Flow FiO2 Time Delivery Rate 04/02/19 96 08:01 04/02/19 98.0 18 135/76 98 07:32 (95) 04/01/19 Room Air 22:00 03/30/19 21 21:39 Intake and Output 04/01/19 04/01/19 04/02/19 1515:00 23:00 07:00 IntakeIntake Total 680 ml 400 ml OutputOutput Total 1600 ml 1000 ml BalanceBalance -920 ml -600 ml Results Result Diagram: 04/02/19 0527 04/02/19 0527 Results 24hrs Laboratory Tests Test 04/01/19 12:39 04/01/19 17:04 04/01/19 21:47 04/02/19 05:27 Bedside Glucose 145 136 129 White Blood Count 7.9 Red Blood Count 3.92 L Hemoglobin 12.0 Hematocrit 36.5 L Mean Corpuscular Volume 93.1 Mean Corpuscular 30.6 Hemoglobin Mean Corpuscular 32.9 Hemoglobin Concent Red Cell Distribution 18.1 H Width Platelet Count 175 Mean Platelet Volume 9.7 Immature Granulocytes % 0.600 H Neutrophils % 75.4 Lymphocytes % 7.6 L Monocytes % 9.8 Eosinophils % 5.7 Basophils % 0.9 Nucleated Red Blood 0.0 Cells % Immature Granulocytes # 0.050 H Neutrophils # 5.9 Lymphocytes # 0.6 L Monocytes # 0.8 Eosinophils # 0.5 Basophils # 0.1 Nucleated Red Blood 0.0 Cells # Sodium Level 137 Potassium Level 5.0 Chloride Level 98 Carbon Dioxide Level 24 Anion Gap 15 H Blood Urea Nitrogen 24 H Creatinine 4.28 H Est Glomerular Filtrat 10 L Rate mL/min Glucose Level 130 Calcium Level 8.4 Test 04/02/19 07:59 Bedside Glucose 118 Medications Medication Current Medications Acetaminophen (Tylenol Tab) 650 mg Q6 PRN PO FOR FEVER Last administered on 04/01/19 14:30; Admin Dose 650 MG; Start 03/29/19 at 03:00 Albuterol (Proventil 0.083% (Neb)) 2.5 mg Q4H PRN NEB WHEEZING AND SOB Last administered on 03/30/19 20:08; Admin Dose 2.5 MG; Start 03/29/19 at 03:00 Apixaban (Eliquis) 2.5 mg DAILY PO Last administered on 04/02/19 09:36; Admin Dose 2.5 MG; Start 03/29/19 at 09:00 Atorvastatin Calcium (Lipitor) 20 mg QHS PO Last administered on 04/01/19 21:49; Admin Dose 20 MG; Start 03/29/19 at 21:00 Bisacodyl (Dulcolax) 5 mg BID PRN PO CONSTIPATION Last administered on 04/02/19 09:36; Admin Dose 5 MG; Start 03/29/19 at 03:00 Folic Acid (Folic Acid) 1 mg DAILY PO Last administered on 04/02/19 09:36; Admin Dose 1 MG; Start 03/29/19 at 09:00 Gabapentin (Neurontin) 300 mg TID PO Last administered on 04/02/19 09:36; Admin Dose 300 MG; Start 03/29/19 at 09:00 Acetaminophen/ Hydrocodone Bitart ([place] (5/325)) 1 tab Q6H PRN PO PAIN Last ad ministered on 03/30/19at 21:25; Admin Dose 1 TAB; Start 03/29/19 at 03:00 Loperamide HCl (Imodium Cap) 2 mg Q4H PRN PO NEEDED; Start 03/29/19 at 03:00 Multivit/Ca Carb/ B Cmplx/FA/Prenat (Suzie-Paula) 1 tab DAILY PO Last administered on 04/02/19 09:36; Admin Dose 1 TAB; Start 03/29/19 at 09:00 Sevelamer Carbonate (Renvela) 0.8 gm WITH MEALS PO Last administered on 04/02/19 09:36; Admin Dose 0.8 GM; Start 03/29/19 at 08:00 Sucralfate (Carafate) 1 gm AC MEALS AND BEDTIME PO Last administered on 06:10; Admin Dose 1 GM; Start 03/29/19 at 07:00 Ondansetron HCl (Zofran Inj) 4 mg Q6H PRN IV NAUSEA AND/OR VOMITING; Start 03/29/19 at 04:00 Pantoprazole (Protonix Iv) 40 mg DAILY@06 IV Last administered on 04/02/19 06:10; Admin Dose 40 MG; Start 03/29/19 at 06:00 Vancomycin HCl (Vanco Iv Per Pharmacy) VANCOMYCIN PER PHARMACY PER PROTOCOL XX ; Start 03/29/19 at 04:00 Cefepime HCl 50 ml @ 100 mls/hr DAILY IVPB Last administered on 04/02/19at 09:33; Admin Dose 100 MLS/HR; Start 03/29/19 at 09:00 Insulin Aspart (Novolog Insulin Pen) NOVOLOG *MILD* ALGORITHM WITH MEALS BEDTIME SC ; Start 03/29/19 at 08:00 Miscellaneous Information (Pending [facility] Order For Wound Care) This patient davis... PRN PRN XX WOUND CARE; Start 03/29/19 at 07:30 Al Hydrox/Mg Hydrox/Simethicone (Mag-Al Plus) 30 ml Q4H PRN PO GASTROINTESTINAL UPSET Last administered on 03/30/19at 12:54; Admin Dose 30 ML; Start 03/30/19 at 10:00 Zolpidem Tartrate (Ambien) 5 mg HS PRN PO INSOMNIA Last administered on 04/01/19 23:42; Admin Dose 5 MG; Start 03/30/19 at 22:30 Zinc Sulfate (Zinc Sulfate) 220 mg DAILY PO Last administered on 04/02/19 09:36; Admin Dose 220 MG; Start 03/31/19 at 14:00 Hydromorphone HCl (Dilaudid) 4 mg Q6H PRN PO PAIN -09/07 Last administered on 04/02/19 01:41; Admin Dose 4 MG; Start 04/01/19 at 17:00 Tramadol HCl (Ultram) 100 mg TID PO Last administered on 04/02/19 09:36; Admin Dose 100 MG; Start 04/01/19 at 21:00 DEEPA SHARP April 02, 2019 11:46
--- NOTE | 2019-04-02 13:10 | PN ---
Date/Time of Note Date/Time of Note DATE: 04/02/19 TIME: 13:08 Assessment/Plan VTE Prophylaxis Risk score (from [facility])>0 risk: 3 SCD applied (from [facility] [place] Yes SCD contraindicated: bilateral LE trauma Pharmacological prophylaxis: apixaban Lines/Catheters IV Catheter Type (from [facility]): Saline Lock Urinary Cath still in place: No Assessment/Plan Hospital Course 1. Right foot gangrene and left foot necrotic ulcer, likely secondary to severe peripheral vascular disease. Arteriogram showed: Occlusion of the left posterior tibialis artery. Findings are new when compared to the prior examination. Diffuse monophasic flow throughout the bilateral lower extremity arterial system. Findings are suggestive of inflow disease. S/p R posterior tibial artery angioplasty 03/31/[address] Lemus. Charcot foot. 2. Leukocytosis secondary to number 1, resolving 3. Sepsis secondary to number 1. with hypotension 4. Diabetes. 5. End-stage renal disease, on hemodialysis. 6. Diabetic neuropathy, nephropathy. 7. Hypertension, BP is liable 8. Secondary hyperparathyroidism. 9. Chronic atrial fibrillation. 10. History of peripheral vascular disease. 11. Hypercholesterolemia. 12. History of gastritis. 13. History of gastroparesis. 14. obesity Assessment/Plan - c/w HD -wound care - Angiogram BLE with dr Lemus done - iv abx per ID Cefipime - appreciate podiatry recs -wound care -Podiatry dr Schultz is on case - cw Eliquis -cw PPI/SUCRALFATE Result Diagram: 04/02/19 0527 04/02/19526 Results 24hrs Laboratory Tests Test 04/01/19 17:04 04/01/19 21:47 04/02/19 05:27 04/02/19 07:59 Bedside Glucose 136 129 118 White Blood Count 7.9 Red Blood Count 3.92 L Hemoglobin 12.0 Hematocrit 36.5 L Mean Corpuscular Volume 93.1 Mean Corpuscular 30.6 Hemoglobin Mean Corpuscular 32.9 Hemoglobin Concent Red Cell Distribution 18.1 H Width Platelet Count 175 Mean Platelet Volume 9.7 Immature Granulocytes % 0.600 H Neutrophils % 75.4 Lymphocytes % 7.6 L Monocytes % 9.8 Eosinophils % 5.7 Basophils % 0.9 Nucleated Red Blood 0.0 Cells % Immature Granulocytes # 0.050 H Neutrophils # 5.9 Lymphocytes # 0.6 L Monocytes # 0.8 Eosinophils # 0.5 Basophils # 0.1 Nucleated Red Blood 0.0 Cells # Sodium Level 137 Potassium Level 5.0 Chloride Level 98 Carbon Dioxide Level 24 Anion Gap 15 H Blood Urea Nitrogen 24 H Creatinine 4.28 H Est Glomerular Filtrat 10 L Rate mL/min Glucose Level 130 Calcium Level 8.4 Test 04/02/19 11:53 Bedside Glucose 136 Subjective 24 Hr Interval Summary Musculoskeletal: bone/joint pain; No no complaints, No back pain, No neck pain, No restricted range of motion, No swelling, No other Exam/Review of Systems Exam Vitals Vital Signs Date Temp Pulse Resp B/P (MAP) Pulse Ox O2 O2 Flow FiO2 Time Delivery Rate 04/02/19 100 12:01 04/02/19 98.2 20 108/66 98 11:42 (80) 04/01/19 Room Air 22:00 03/30/19 21 21:39 Intake and Output 04/01/19 04/01/19 04/02/19 1414:59 22:59 06:59 IntakeIntake Total 300 ml 680 ml 400 ml OutputOutput Total 1600 ml 1000 ml BalanceBalance 300 ml -920 ml -600 ml Exam right chest Permcath Constitutional: alert, oriented Neck: supple Respiratory: diminished breath sounds Cardiovascular: regular rate and rhythm Gastrointestinal: soft Musculoskeletal: muscle weakness, swelling, other (left foot amputated toes) Results Results 24hrs Laboratory Tests Test 04/01/19 17:04 04/01/19 21:47 04/02/19 05:27 04/02/19 07:59 Bedside Glucose 136 129 118 White Blood Count 7.9 Red Blood Count 3.92 L Hemoglobin 12.0 Hematocrit 36.5 L Mean Corpuscular Volume 93.1 Mean Corpuscular 30.6 Hemoglobin Mean Corpuscular 32.9 Hemoglobin Concent Red Cell Distribution 18.1 H Width Platelet Count 175 Mean Platelet Volume 9.7 Immature Granulocytes % 0.600 H Neutrophils % 75.4 Lymphocytes % 7.6 L Monocytes % 9.8 Eosinophils % 5.7 Basophils % 0.9 Nucleated Red Blood 0.0 Cells % Immature Granulocytes # 0.050 H Neutrophils # 5.9 Lymphocytes # 0.6 L Monocytes # 0.8 Eosinophils # 0.5 Basophils # 0.1 Nucleated Red Blood 0.0 Cells # Sodium Level 137 Potassium Level 5.0 Chloride Level 98 Carbon Dioxide Level 24 Anion Gap 15 H Blood Urea Nitrogen 24 H Creatinine 4.28 H Est Glomerular Filtrat 10 L Rate mL/min Glucose Level 130 Calcium Level 8.4 Test 04/02/19 11:53 Bedside Glucose 136 Medications Medication Current Medications Acetaminophen (Tylenol Tab) 650 mg Q6 PRN PO FOR FEVER Last administered on 04/01/19 14:30; Admin Dose 650 MG; Start 03/29/19 at 03:00 Albuterol (Proventil 0.083% (Neb)) 2.5 mg Q4H PRN NEB WHEEZING AND SOB Last administered on 03/30/19 20:08; Admin Dose 2.5 MG; Start 03/29/19 at 03:00 Apixaban (Eliquis) 2.5 mg DAILY PO Last administered on 04/02/19 09:36; Admin Dose 2.5 MG; Start 03/29/19 at 09:00 Atorvastatin Calcium (Lipitor) 20 mg QHS PO Last administered on 04/01/19 21:49; Admin Dose 20 MG; Start 03/29/19 at 21:00 Bisacodyl (Dulcolax) 5 mg BID PRN PO CONSTIPATION Last administered on 04/02/19 09:36; Admin Dose 5 MG; Start 03/29/19 at 03:00 Folic Acid (Folic Acid) 1 mg DAILY PO Last administered on 04/02/19 09:36; Admin Dose 1 MG; Start 03/29/19 at 09:00 Gabapentin (Neurontin) 300 mg TID PO Last administered on 04/02/19 09:36; Admin Dose 300 MG; Start 03/29/19 at 09:00 Acetaminophen/ Hydrocodone Bitart ([place] (5/325)) 1 tab Q6H PRN PO PAIN Last administered on 03/30/19 21:25; Admin Dose 1 TAB; Start 03/29/19 at 03:00 Loperamide HCl (Imodium Cap) 2 mg Q4H PRN PO NEEDED; Start 03/29/19 at 03:00 Multivit/Ca Carb/ B Cmplx/FA/Prenat ([place]) 1 tab DAILY PO Last administered on 04/02/19 09:36; Admin Dose 1 TAB; Start 03/29/19 at 09:00 Sevelamer Carbonate (Renvela) 0.8 gm WITH MEALS PO Last administered on 04/02/19 11:52; Admin Dose 0.8 GM; Start 03/29/19 at 08:00 Sucralfate (Carafate) 1 gm AC MEALS AND BEDTIME PO Last administered on 04/02/19 11:52; Admin Dose 1 GM; Start 03/29/19 at 07:00 Ondansetron HCl (Zofran Inj) 4 mg Q6H PRN IV NAUSEA AND/OR VOMITING; Start 03/29/19 at 04:00 Pantoprazole (Protonix Iv) 40 mg DAILY@06 IV Last administered on 04/02/19 06:10; Admin Dose 40 MG; Start 03/29/19 at 06:00 Vancomycin HCl (Vanco Iv Per Pharmacy) VANCOMYCIN PER PHARMACY PER PROTOCOL XX ; Start 03/29/19 at 04:00 Cefepime HCl 50 ml @ 100 mls/hr DAILY IVPB Last administered on 04/02/19 09:33; Admin Dose 100 MLS/HR; Start 03/29/19 at 09:00 Insulin Aspart (Novolog Insulin Pen) NOVOLOG *MILD* ALGORITHM WITH MEALS BEDTIME SC ; Start 03/29/19 at 08:00 Miscellaneous Information (Pending [facility] Order For Wound Care) This patient davis... PRN PRN XX WOUND CARE; Start 03/29/19 at 07:30 Al Hydrox/Mg Hydrox/Simethicone (Mag-Al Plus) 30 ml Q4H PRN PO GASTROINTESTINAL UPSET Last administered on 03/30/19 12:54; Admin Dose 30 ML; Start 03/30/19 at 10:00 Zolpidem Tartrate (Ambien) 5 mg HS PRN PO INSOMNIA Last administered on 04/01/19 23:42; Admin Dose 5 MG; Start 03/30/19 at 22:30 Zinc Sulfate (Zinc Sulfate) 220 mg DAILY PO Last administered on 04/02/19 09:36; Admin Dose 220 MG; Start 03/31/19 at 14:00 Hydromorphone HCl (Dilaudid) 4 mg Q6H PRN PO PAIN 7-10/10 Last administered on 04/02/19 01:41; Admin Dose 4 MG; Start 04/01/19 at 17:00 Tramadol HCl (Ultram) 100 mg TID PO Last administered on 04/02/19at 09:36; Admin Dose 100 MG; Start 04/01/19 at 21:00 KENNY TERRAZAS April 02, 2019 13:10
[2019-04-02] MEDS ORDERED: GLUCAGON 1 MG INJ IM PRN (16:30)
[2019-04-02] MEDS ORDERED: GLUCOSE GEL 15 GRAM TUBE BUCCAL PRN (16:30)
[2019-04-02] MEDS ORDERED: GLUCOSE GEL 15 GRAM TUBE PO PRN ×2 (16:30)
[2019-04-02] MEDS ORDERED: DEXTROSE 50% 50 ML SYRINGE IV PRN ×2 (16:30)
[2019-04-02] MEDS: ATORVASTATIN 20 MG TAB PO SCH (21:10)
[2019-04-03] VITALS (25 sets, daily range): BP systolic 91–122; BP diastolic 48–77; PULSE 88–113; RESP 18–20
[2019-04-03] MEDS: PANTOPRAZOLE (EC) 40 MG TAB PO SCH (05:24)
[2019-04-03] MEDS: SEVELAMER CARBONATE 0.8 GM PKT PO SCH ×3 (07:32→17:02)
[2019-04-03] MEDS: INSULIN ASPART [NOVOLOG] 3 ML PEN SC SCH ×4 (07:32→21:00)
[2019-04-03] MEDS: SUCRALFATE 1 GM TAB PO SCH ×4 (07:32→22:04)
[2019-04-03] MEDS: FOLIC ACID 1 MG TAB PO SCH (08:41)
[2019-04-03] MEDS: GABAPENTIN 300 MG CAP PO SCH ×3 (08:41→22:04)
[2019-04-03] MEDS: MULTIVIT/CA CARB/B CMPLX/FA TAB PO SCH (08:41)
[2019-04-03] MEDS: APIXABAN 5 MG TABLET PO SCH (08:41)
[2019-04-03] MEDS: ZINC SULFATE 220 MG CAP PO SCH (08:41)
[2019-04-03] MEDS: traMADol 50 MG TAB PO SCH ×3 (08:43→22:04)
[2019-04-03] MEDS: CEFEPIME 1GM/50 ML (PMX) 50 ML IVPB SCH (08:48)
--- NOTE | 2019-04-03 12:01 | PN ---
Date/Time of Note Date/Time of Note DATE: 04/03/19 TIME: 11:55 Assessment/Plan VTE Prophylaxis Risk score (from Nsg)>0 risk: 6 SCD applied (from Ns): No SCD contraindicated: low risk/ambulating Pharmacological prophylaxis: NA/contraindicated Pharm contraindication: low risk/ambulating Lines/Catheters IV Catheter Type (from Nrsg): [place] Urinary Cath still in place: No Assessment/Plan Hospital Course ASSESSMENT AND PLAN: This is a 63-year-old female who presented with: 1. Right foot gangrene and left foot necrotic ulcer, likely secondary to severe peripheral vascular disease. 2. Leukocytosis secondary to number 1. 3. Sepsis secondary to number 1.ith hypotension 4. Diabetes. 5. End-stage renal disease, on hemodialysis. 6. Diabetes with a complication of diabetic neuropathy, nephropathy. 7. Hypertension, currently hypotensive. 8. Secondary hyperparathyroidism. 9. Chronic atrial fibrillation. 10. History of peripheral vascular disease. 11. Hypercholesterolemia. 12. History of gastritis. 13. History of gastroparesis. Plan - HD today - cw Vanco/cefepime - FU Dr Schultz > spoke to him for final recs - cw eliquis - pain control with dilaudid/tramadol - GI and DVT prophylaxsis - Angiogram withdr mercer tmw cw PPI/SUCRALFATE Result Diagram: 04/02/1952604/02/19 05 Results 24hrs Laboratory Tests Test 04/02/19 17:29 04/02/19 21:08 04/03/19 05:32 04/03/19 07:31 Bedside Glucose 140 158 134 Random Vancomycin Level 23.9 Test 04/03/19 11:41 Bedside Glucose 144 Subjective 24 Hr Interval Summary Free Text/Dictation pt feels a lot better today pain is improved Exam/Review of Systems Exam Vitals Vital Signs Date Temp Pulse Resp B/P (MAP) Pulse Ox O2 O2 Flow FiO2 Time Delivery Rate 04/03/19 97.9 97 20 121/73 96 Room Air 11:11 (89) 03/30/19 21 21:39 Intake and Output 04/02/19 04/02/19 04/03/19 1515:00 23:00 07:00 IntakeIntake Total 700 ml 300 ml BalanceBalance 700 ml 300 ml Exam right chest Permcath Constitutional: alert, oriented Neck: supple Respiratory: diminished breath sounds Cardiovascular: regular rate and rhythm Gastrointestinal: soft Musculoskeletal: muscle weakness, swelling, other (left foot amputated toes)EXTREMITIES: 1. Right foot: The patient has right foot Charcot right, right foot heel gangrene, status post amputation of the right first toe. 2. Left foot: The patient has gangrenous changes on the second, third, and fourth toes. The patient also has some left leg ulcer, 2 x 3 cm at the bottom of the left foot. Results Results 24hrs Laboratory Tests Test 04/02/19 17:29 04/02/19 21:08 04/03/19 05:32 04/03/19 07:31 Bedside Glucose 140 158 134 Random Vancomycin Level 23.9 Test 04/03/19 11:41 Bedside Glucose 144 Medications Medication Current Medications Acetaminophen (Tylenol Tab) 650 mg Q6 PRN PO FOR FEVER Last administered on 04/01/19 14:30; Admin Dose 650 MG; Start 03/29/19 at 03:00 Albuterol (Proventil 0.083% (Neb)) 2.5 mg Q4H PRN NEB WHEEZING AND SOB Last administered on 03/30/19 20:08; Admin Dose 2.5 MG; Start 03/29/19 at 03:00 Apixaban (Eliquis) 2.5 mg DAILY PO Last administered on 04/03/19 08:41; Admin Dose 2.5 MG; Start 03/29/19 at 09:00 Atorvastatin Calcium (Lipitor) 20 mg QHS PO Last administered on 04/02/19 21:10; Admin Dose 20 MG; Start 03/29/19 at 21:00 Bisacodyl (Dulcolax) 5 mg BID PRN PO CONSTIPATION Last administered on 04/02/19 09:36; Admin Dose 5 MG; Start 03/29/19 at 03:00 Folic Acid (Folic Acid) 1 mg DAILY PO Last administered on 04/03/19 08:41; Admin Dose 1 MG; Start 03/29/19 at 09:00 Gabapentin (Neurontin) 300 mg TID PO Last administered on 04/03/19 08:41; Admin Dose 300 MG; Start 03/29/19 at 09:00 Acetaminophen/ Hydrocodone Bitart ([place] (5/325)) 1 tab Q6H PRN PO PAIN Last administered on 03/30/19 21:25; Admin Dose 1 TAB; Start 03/29/19 at 03:00 Loperamide HCl (Imodium Cap) 2 mg Q4H PRN PO NEEDED; Start 03/29/19 at 03:00 Multivit/Ca Carb/ B Cmplx/FA/Prenat ([place]) 1 tab DAILY PO Last administered on 04/03/19 08:41; Admin Dose 1 TAB; Start 03/29/19 at 09:00 Sevelamer Carbonate (Renvela) 0.8 gm WITH MEALS PO Last administered on 04/03/19 11:37; Admin Dose 0.8 GM; Start 03/29/19 at 08:00 Sucralfate (Carafate) 1 gm AC MEALS AND BEDTIME PO Last administered on 04/03/19 11:37; Admin Dose 1 GM; Start 03/29/19 at 07:00 Ondansetron HCl (Zofran Inj) 4 mg Q6H PRN IV NAUSEA AND/OR VOMITING; Start 03/29/19 at 04:00 Vancomycin HCl (Vanco Iv Per Pharmacy) VANCOMYCIN PER PHARMACY PER PROTOCOL XX ; Start 03/29/19 at 04:00 Cefepime HCl 50 ml @ 100 mls/hr DAILY IVPB Last administered on 04/03/19 08:48; Admin Dose 100 MLS/HR; Start 03/29/19 at 09:00 Insulin Aspart (Novolog Insulin Pen) NOVOLOG *MILD* ALGORITHM WITH MEALS BEDTIME SC ; Start 03/29/19 at 08:00 Miscellaneous Information (Pending [facility] Order For Wound Care) This patient davis... PRN PRN XX WOUND CARE; Start 03/29/19 at 07:30 Al Hydrox/Mg Hydrox/Simethicone (Mag-Al Plus) 30 ml Q4H PRN PO GASTROINTESTINAL UPSET Last administered on 03/30/19 12:54; Admin Dose 30 ML; Start 03/30/19 at 10:00 Zolpidem Tartrate (Ambien) 5 mg HS PRN PO INSOMNIA Last administered on 04/01/19 23:42; Admin Dose 5 MG; Start 03/30/19 at 22:30 Zinc Sulfate (Zinc Sulfate) 220 mg DAILY PO Last administered on 5/6/19at 08:41; Admin Dose 220 MG; Start 03/31/19 at 14:00 Hydromorphone HCl (Dilaudid) 4 mg Q6H PRN PO PAIN 7-09/07 Last administered on 04/02/19at 01:41; Admin Dose 4 MG; Start 04/01/19 at 17:00 Tramadol HCl (Ultram) 100 mg TID PO Last administered on 04/03/19at 08:43; Admin Dose 100 MG; Start 04/01/19 at 21:00 Miscellaneous Information 1 ea NOTE XX ; Start 04/02/19 at 16:30 Glucose (Glutose) 15 gm Q15M PRN PO DECREASED GLUCOSE; Start 04/02/19 at 16:30 Glucose (Glutose) 22.5 gm Q15M PRN PO DECREASED GLUCOSE; Start 04/02/19 at 16:30 Dextrose (D50w Syringe) 25 ml Q15M PRN IV DECREASED GLUCOSE; Start 04/02/19 at 16:30 Dextrose (D50w Syringe) 50 ml Q15M PRN IV DECREASED GLUCOSE; Start 04/02/19 at 16:30 Glucagon (Glucagen) 1 mg Q15M PRN IM DECREASED GLUCOSE; Start 04/02/19 at 16:30 Glucose (Glutose) 15 gm Q15M PRN BUCCAL DECREASED GLUCOSE; Start 04/02/19 at 16: 30 Pantoprazole (Protonix Tab) 40 mg DAILY@06 PO Last administered on 04/03/19at 05:24; Admin Dose 40 MG; Start 04/03/19 at 06:00 Heparin Sodium (Porcine) (Heparin (1000 Units/ml)) 4,000 unit AFTER DIALYSIS CATHETER ; Start 04/03/19 at 09:30 JACOB GONZALEZ MD April 03, 2019 12:01
--- NOTE | 2019-04-03 13:46 | CONS ---
Assessment/Plan Assessment/Plan Hospital Course (Demo Recall) No events, awake, looks comfortable, no fevers overnight Indwelling: Right chest permacath. Microbiology: Blood cultures negative MRSA swab negative Allergy: Amoxicillin Antimicrobials: Vancomycin and cefepime Physical examination: This is a wasted well-developed fragile elderly woman who is awake the patient is in no distress. Head atraumatic normocephalic. Neck is supple. Chest rise symmetrical breath sounds diminished bases. Heart: S1-S2. Abdomen soft bowel sounds present. Extremities with bilateral lower extremities chronic changes and ulcerations Assessment: 1. Bilateral lower extremities diabetic ulceration 2. Right foot Charcot's joint 3. End-stage renal disease, hemodialysis dependent 4. Diabetes 5. Failure to thrive 6. Peripheral arterial disease, status post right posterior tibial artery angioplasty 03/01/19 Plan: Remains stable, ok dc on IV Vanco and PO Levaquin to complete 2 weeks Consultation Date/Type/Reason Admit Date/Time Mar 28, 2019 at 16:57 Initial Consult Date 03/29/19 Type of Consult id Date/Time of Note DATE: 04/03/19 TIME: 13:45 Exam/Review of Systems Exam Vitals Vital Signs Date Temp Pulse Resp B/P (MAP) Pulse Ox O2 O2 Flow FiO2 Time Delivery Rate 04/03/19 97.9 97 20 121/73 96 Room Air 11:11 (89) 03/30/19 21 21:39 Intake and Output 04/02/19 04/02/19 04/03/19 1414:59 22:59 06:59 IntakeIntake Total 700 ml 300 ml BalanceBalance 700 ml 300 ml Results Result Diagram: 04/02/19 0527 04/02/19 0527 Results 24hrs Laboratory Tests Test 04/02/19 17:29 04/02/19 21:08 04/03/19 05:32 04/03/19 07:31 Bedside Glucose 140 158 134 Random Vancomycin Level 23.9 Test 04/03/19 11:41 Bedside Glucose 144 Medications Medication Current Medications Acetaminophen (Tylenol Tab) 650 mg Q6 PRN PO FOR FEVER Last administered on 04/01/19at 14:30; Admin Dose 650 MG; Start 03/29/19 at 03:00 Albuterol (Proventil 0.083% (Neb)) 2.5 mg Q4H PRN NEB WHEEZING AND SOB Last administered on 03/30/19 20:08; Admin Dose 2.5 MG; Start 03/29/19 at 03:00 Apixaban (Eliquis) 2.5 mg DAILY PO Last administered on 04/03/19 08:41; Admin Dose 2.5 MG; Start 03/29/19 at 09:00 Atorvastatin Calcium (Lipitor) 20 mg QHS PO Last administered on 04/02/19 21:10; Admin Dose 20 MG; Start 03/29/19 at 21:00 Bisacodyl (Dulcolax) 5 mg BID PRN PO CONSTIPATION Last administered on 04/02/19 09:36; Admin Dose 5 MG; Start 03/29/19 at 03:00 Folic Acid (Folic Acid) 1 mg DAILY PO Last administered on 04/03/19 08:41; Admin Dose 1 MG; Start 03/29/19 at 09:00 Gabapentin (Neurontin) 300 mg TID PO Last administered on 04/03/19 12:55; Admin Dose 300 MG; Start 03/29/19 at 09:00 Acetaminophen/ Hydrocodone Bitart ([place] (5/325)) 1 tab Q6H PRN PO PAIN Last administered on 03/30/19 21:25; Admin Dose 1 TAB; Start 03/29/19 at 03:00 Loperamide HCl (Imodium Cap) 2 mg Q4H PRN PO NEEDED; Start 03/29/19 at 03:00 Multivit/Ca Carb/ B Cmplx/FA/Prenat ([place]) 1 tab DAILY PO Last administered on 04/03/19 08:41; Admin Dose 1 TAB; Start 03/29/19 at 09:00 Sevelamer Carbonate (Renvela) 0.8 gm WITH MEALS PO Last administered on 04/03/19 11:37; Admin Dose 0.8 GM; Start 03/29/19 at 08:00 Sucralfate (Carafate) 1 gm AC MEALS AND BEDTIME PO Last administered on 04/03/19 11:37; Admin Dose 1 GM; Start 03/29/19 at 07:00 Ondansetron HCl (Zofran Inj) 4 mg Q6H PRN IV NAUSEA AND/OR VOMITING; Start 03/29/19 at 04:00 Vancomycin HCl (Vanco Iv Per Pharmacy) VANCOMYCIN PER PHARMACY PER PROTOCOL XX ; Start 03/29/19 at 04:00 Cefepime HCl 50 ml @ 100 mls/hr DAILY IVPB Last administered on 04/03/19at 08:48; Admin Dose 100 MLS/HR; Start 03/29/19 at 09:00 Insulin Aspart (Novolog Insulin Pen) NOVOLOG *MILD* ALGORITHM WITH MEALS BEDTIME SC ; Start 03/29/19 at 08:00 Miscellaneous Information [facility] This patient davis... PRN PRN XX WOUND CARE; Start 03/29/19 at 07:30 Al Hydrox/Mg Hydrox/Simethicone (Mag-Al Plus) 30 ml Q4H PRN PO GASTROINTESTINAL UPSET Last administered on 03/30/19at 12:54; Admin Dose 30 ML; Start 03/30/19 at 10:00 Zolpidem Tartrate (Ambien) 5 mg HS PRN PO INSOMNIA Last administered on 04/01/19at 23:42; Admin Dose 5 MG; Start 03/30/19 at 22:30 Zinc Sulfate (Zinc Sulfate) 220 mg DAILY PO Last administered on 04/03/19 08:41; Admin Dose 220 MG; Start 03/31/19 at 14:00 Hydromorphone HCl (Dilaudid) 4 mg Q6H PRN PO PAIN 7-09/07 Last administered on 04/02/19at 01:41; Admin Dose 4 MG; Start 04/01/19 at 17:00 Tramadol HCl (Ultram) 100 mg TID PO Last administered on 04/03/19at 12:56; Admin Dose 100 MG; Start 04/01/19 at 21:00 Miscellaneous Information 1 ea NOTE XX ; Start 04/02/19 at 16:30 Glucose (Glutose) 15 gm Q15M PRN PO DECREASED GLUCOSE; Start 04/02/19 at 16:30 Glucose (Glutose) 22.5 gm Q15M PRN PO DECREASED GLUCOSE; Start 04/02/19 at 16:30 Dextrose (D50w Syringe) 25 ml Q15M PRN IV DECREASED GLUCOSE; Start 04/02/19 at 16:30 Dextrose (D50w Syringe) 50 ml Q15M PRN IV DECREASED GLUCOSE; Start 04/02/19 at 16:30 Glucagon (Glucagen) 1 mg Q15M PRN IM DECREASED GLUCOSE; Start 04/02/19 at 16:30 Glucose (Glutose) 15 gm Q15M PRN BUCCAL DECREASED GLUCOSE; Start 04/02/19 at 16:30 Pantoprazole (Protonix Tab) 40 mg DAILY@06 PO Last administered on 04/03/19at 05:24; Admin Dose 40 MG; Start 04/03/19 at 06:00 Heparin Sodium (Porcine) (Heparin (1000 Units/ml)) 4,000 unit AFTER DIALYSIS CATHETER ; Start 04/03/19 at 09:30 JOHANA KULKARNI NP April 03, 2019 13:46
[2019-04-03] MEDS ORDERED: ALBUMIN HUMAN 25% 100 ML ONE (14:22)
[2019-04-03] MEDS ORDERED: ALBUMIN HUMAN 25% 100 ML IV PRN (14:30)
[2019-04-03] MEDS: HEPARIN 1000 UNITS/ML 10 ML INJ CATHETER SCH (17:42)
[2019-04-03] MEDS: ATORVASTATIN 20 MG TAB PO SCH (22:04)
[2019-04-03] MEDS: ZOLPIDEM 5 MG TAB PO PRN (22:44)
[2019-04-03] MEDS: HYDROCODONE/APAP (5/325) TAB PO PRN (23:31)
[2019-04-04 02:00] VITALS: BP 102/57; PULSE 110; RESP 18
[2019-04-04] MEDS: PANTOPRAZOLE (EC) 40 MG TAB PO SCH (05:27)
[2019-04-04] MEDS: BISACODYL (EC) 5 MG TAB PO PRN (05:32)
[2019-04-04] MEDS: SUCRALFATE 1 GM TAB PO SCH ×3 (07:56→17:08)
[2019-04-04] MEDS: SEVELAMER CARBONATE 0.8 GM PKT PO SCH ×3 (07:56→17:08)
[2019-04-04] MEDS: INSULIN ASPART [NOVOLOG] 3 ML PEN SC SCH ×4 (07:56→21:00)
[2019-04-04 08:00] VITALS: BP 105/59; PULSE 89; RESP 18
[2019-04-04] MEDS: GABAPENTIN 300 MG CAP PO SCH ×2 (08:39→12:39)
[2019-04-04] MEDS: ZINC SULFATE 220 MG CAP PO SCH (08:39)
[2019-04-04] MEDS: APIXABAN 5 MG TABLET PO SCH (08:39)
[2019-04-04] MEDS: FOLIC ACID 1 MG TAB PO SCH (08:39)
[2019-04-04] MEDS: traMADol 50 MG TAB PO SCH ×2 (08:40→12:39)
[2019-04-04] MEDS: MULTIVIT/CA CARB/B CMPLX/FA TAB PO SCH (08:40)
[2019-04-04] MEDS: CEFEPIME 1GM/50 ML (PMX) 50 ML IVPB SCH (08:40)
--- NOTE | 2019-04-04 11:57 | CONS ---
Assessment/Plan Assessment/Plan Hospital Course (Demo Recall) No acute events, looks comfortable, no fevers overnight Indwelling: Right chest permacath. Microbiology: Blood cultures negative MRSA swab negative Allergy: Amoxicillin Antimicrobials: Vancomycin and cefepime Physical examination: This is a wasted well-developed fragile elderly woman who is awake the patient is in no distress. Head atraumatic normocephalic. Neck is supple. Chest rise symmetrical breath sounds diminished bases. Heart: S1-S2. Abdomen soft bowel sounds present. Extremities with bilateral lower extremities chronic changes and ulcerations Assessment: 1. Bilateral lower extremities diabetic ulceration 2. Right foot Charcot's joint 3. End-stage renal disease, hemodialysis dependent 4. Diabetes 5. Failure to thrive 6. Peripheral arterial disease, status post right posterior tibial artery angioplasty 03/01/19 Plan: Remains stable, ok dc on IV Vanco and PO Levaquin to complete 2 weeks ==> last dose 04/11/19 Consultation Date/Type/Reason Admit Date/Time Mar 28, 2019 at 16:57 Initial Consult Date 03/29/19 Type of Consult id Date/Time of Note DATE: 04/04/19 TIME: 11:56 Exam/Review of Systems Exam Vitals Vital Signs Date Temp Pulse Resp B/P (MAP) Pulse Ox O2 O2 Flow FiO2 Time Delivery Rate 04/04/19 98.2 89 18 105/59 100 Room Air 08:00 (74) Intake and Output 04/03/19 04/03/19 04/04/19 1515:00 23:00 07:00 IntakeIntake Total 300 ml 200 ml OutputOutput Total 2500 ml BalanceBalance -2200 ml 200 ml Results Result Diagram: 04/04/19 0815 04/04/19 0815 Results 24hrs Laboratory Tests Test 04/03/19 17:01 04/03/19 22:07 04/04/19 07:54 04/04/19 08:15 Bedside Glucose 123 142 144 White Blood Count 8.0 Red Blood Count 3.79 L Hemoglobin 11.7 L Hematocrit 36.1 L Mean Corpuscular Volume 95.3 Mean Corpuscular 30.9 Hemoglobin Mean Corpuscular 32.4 Hemoglobin Concent Red Cell Distribution 18.4 H Width Platelet Count 140 Mean Platelet Volume 9.7 Immature Granulocytes % 0.900 H Neutrophils % 75.3 Lymphocytes % 7.1 L Monocytes % 8.1 Eosinophils % 7.4 H Basophils % 1.2 Nucleated Red Blood 0.0 Cells % Immature Granulocytes # 0.070 H Neutrophils # 6.0 Lymphocytes # 0.6 L Monocytes # 0.7 Eosinophils # 0.6 H Basophils # 0.1 Nucleated Red Blood 0.0 Cells # Sodium Level 135 Potassium Level 4.4 Chloride Level 98 Carbon Dioxide Level 25 Anion Gap 12 Blood Urea Nitrogen 24 H Creatinine 3.99 H Est Glomerular Filtrat 11 L Rate mL/min Glucose Level 143 Calcium Level 8.1 L Phosphorus Level 3.1 Magnesium Level 2.0 Medications Medication Current Medications Acetaminophen (Tylenol Tab) 650 mg Q6 PRN PO FOR FEVER Last administered on 04/01/19 14:30; Admin Dose 650 MG; Start 03/29/19 at 03:00 Albuterol (Proventil 0.083% (Neb)) 2.5 mg Q4H PRN NEB WHEEZING AND SOB Last administered on 03/30/19 20:08; Admin Dose 2.5 MG; Start 03/29/19 at 03:00 Apixaban (Eliquis) 2.5 mg DAILY PO Last administered on 04/04/19 08:39; Admin Dose 2.5 MG; Start 03/29/19 at 09:00 Atorvastatin Calcium (Lipitor) 20 mg QHS PO Last administered on 04/03/19 22:04; Admin Dose 20 MG; Start 03/29/19 at 21:00 Bisacodyl (Dulcolax) 5 mg BID PRN PO CONSTIPATION Last administered on 04/04/19 05:32; Admin Dose 5 MG; Start 03/29/19 at 03:00 Folic Acid (Folic Acid) 1 mg DAILY PO Last administered on 04/04/19 08:39; Admin Dose 1 MG; Start 03/29/19 at 09:00 Gabapentin (Neurontin) 300 mg TID PO Last administered on 04/04/19 08:39; Admin Dose 300 MG; Start 03/29/19 at 09:00 Acetaminophen/ Hydrocodone Bitart ([place] (5/325)) 1 tab Q6H PRN PO PAIN Last administered on 04/03/19 23:31; Admin Dose 1 TAB; Start 03/29/19 at 03:00 Loperamide HCl (Imodium Cap) 2 mg Q4H PRN PO NEEDED; Start 03/29/19 at 03:00 Multivit/Ca Carb/ B Cmplx/FA/Prenat ([place]) 1 tab DAILY PO Last administered on 04/04/19 08:40; Admin Dose 1 TAB; Start 03/29/19 at 09:00 Sevelamer Carbonate (Renvela) 0.8 gm WITH MEALS PO Last administered on 04/04/19 07:56; Admin Dose 0.8 GM; Start 03/29/19 at 08:00 Sucralfate (Carafate) 1 gm AC MEALS AND BEDTIME PO Last administered on 04/04/19 07:56; Admin Dose 1 GM; Start 03/29/19 at 07:00 Ondansetron HCl (Zofran Inj) 4 mg Q6H PRN IV NAUSEA AND/OR VOMITING; Start 03/29/19 at 04:00 Vancomycin HCl (Vanco Iv Per Pharmacy) VANCOMYCIN PER PHARMACY PER PROTOCOL XX ; Start 03/29/19 at 04:00 Cefepime HCl 50 ml @ 100 mls/hr DAILY IVPB Last administered on 04/04/19 08:40; Admin Dose 100 MLS/HR; Start 03/29/19 at 09:00 Insulin Aspart (Novolog Insulin Pen) NOVOLOG *MILD* ALGORITHM WITH MEALS BEDTIME SC Last administered on 04/04/19 07:56; Admin Dose 1 UNIT; Start 03/29/19 at 08:00 Miscellaneous Information (Pending [facility] Order For Wound Care) This patient davis... PRN PRN XX WOUND CARE; Start 03/29/19 at 07:30 Al Hydrox/Mg Hydrox/Simethicone (Mag-Al Plus) 30 ml Q4H PRN PO GASTROINTESTINAL UPSET Last administered on 03/30/19 12:54; Admin Dose 30 ML; Start 03/30/19 at 10:00 Zolpidem Tartrate (Ambien) 5 mg HS PRN PO INSOMNIA Last administered on 04/03/19 22:44; Admin Dose 5 MG; Start 03/30/19 at 22:30 Zinc Sulfate (Zinc Sulfate) 220 mg DAILY PO Last administered on 04/04/19 08:39; Admin Dose 220 MG; Start 03/31/19 at 14:00 Hydromorphone HCl (Dilaudid) 4 mg Q6H PRN PO PAIN 7-1010 Last administered on 04/02/19at 01:41; Admin Dose 4 MG; Start 04/01/19 at 17:00 Tramadol HCl (Ultram) 100 mg TID PO Last administered on 04/04/19at 08:40; Admin Dose 100 MG; Start 04/01/19 at 21:00 Miscellaneous Information 1 ea NOTE XX ; Start 04/02/19 at 16:30 Glucose (Glutose) 15 gm Q15M PRN PO DECREASED GLUCOSE; Start 04/02/19 at 16:30 Glucose (Glutose) 22.5 gm Q15M PRN PO DECREASED GLUCOSE; Start 04/02/19 at 16:30 Dextrose (D50w Syringe) 25 ml Q15M PRN IV DECREASED GLUCOSE; Start 04/02/19 at 16:30 Dextrose (D50w Syringe) 50 ml Q15M PRN IV DECREASED GLUCOSE; Start 04/02/19 at 16:30 Glucagon (Glucagen) 1 mg Q15M PRN IM DECREASED GLUCOSE; Start 04/02/19 at 16:30 Glucose (Glutose) 15 gm Q15M PRN BUCCAL DECREASED GLUCOSE; Start 04/02/19 at 16:30 Pantoprazole (Protonix Tab) 40 mg DAILY@06 PO Last administered on 04/04/19at 05 :27; Admin Dose 40 MG; Start 04/03/19 at 06:00 Heparin Sodium (Porcine) (Heparin (1000 Units/ml)) 4,000 unit AFTER DIALYSIS CATHETER Last administered on 04/03/19at 17:42; Admin Dose 3,700 UNIT; Start 04/03/19 at 09:30 Albumin Human 100 ml @ 100 mls/hr WITH DIALYSIS PRN IV SBP <90 DURING DIALYSIS Last administered on 04/03/19at 14:36; Admin Dose 100 MLS/HR; Start 04/03/19 at 14:30 JOHANA KULKARNI NP April 04, 2019 11:57
[2019-04-04] MEDS ORDERED: LEVOFLOXACIN 250 MG TAB PO SCH (12:00)
[2019-04-04 14:00] VITALS: BP 114/70; PULSE 88; RESP 18
[2019-04-04] MEDS: HYDROCODONE/APAP (5/325) TAB PO PRN (16:43)
[2019-04-04 20:00] VITALS: BP 135/56; PULSE 95; RESP 18
[2019-04-04] MEDS ORDERED: BISACODYL 10 MG SUPP PR ONE (23:00)
[2019-04-05] VITALS (18 sets, daily range): BP systolic 84–150; BP diastolic 48–88; PULSE 92–109; RESP 18
[2019-04-05] MEDS: SUCRALFATE 1 GM TAB PO SCH ×5 (00:23→21:26)
[2019-04-05] MEDS: ATORVASTATIN 20 MG TAB PO SCH ×2 (00:23→21:26)
[2019-04-05] MEDS: traMADol 50 MG TAB PO SCH ×4 (00:24→18:11)
[2019-04-05] MEDS: GABAPENTIN 300 MG CAP PO SCH ×4 (00:24→21:27)
[2019-04-05] MEDS: ZOLPIDEM 5 MG TAB PO PRN (00:24)
--- NOTE | 2019-04-05 05:50 | PN ---
Date/Time of Note Date/Time of Note DATE: 04/05/19 TIME: 05:48 Assessment/Plan VTE Prophylaxis Risk score (from Ns)>0 risk: 6 SCD applied (from [facility] [place] No SCD contraindicated: low risk/ambulating Pharmacological prophylaxis: NA/contraindicated Pharm contraindication: low risk/ambulating Lines/Catheters IV Catheter Type (from [facility] Saline Lock Urinary Cath still in place: No Assessment/Plan Hospital Course ASSESSMENT AND PLAN: This is a 63-year-old female who presented with: 1. Right foot gangrene and left foot necrotic ulcer, likely secondary to severe peripheral vascular disease. 2. Leukocytosis secondary to number 1. 3. Sepsis secondary to number 1.ith hypotension 4. Diabetes. 5. End-stage renal disease, on hemodialysis. 6. Diabetes with a complication of diabetic neuropathy, nephropathy. 7. Hypertension, currently hypotensive. 8. Secondary hyperparathyroidism. 9. Chronic atrial fibrillation. 10. History of peripheral vascular disease. 11. Hypercholesterolemia. 12. History of gastritis. 13. History of gastroparesis. Plan - HD tmw - cw Vanco/levaquin - FU Dr Schultz > spoke to him for final recs? debridement - cw eliquis - pain control with dilaudid/tramadol - GI and DVT prophylaxsis cw PPI/SUCRALFATE this note is for 04/04/19> late note entry, pt was seen in 04/04/19 Result Diagram: 04/04/19 0815 04/04/19 0815 Results 24hrs Laboratory Tests Test 04/04/19 07:54 04/04/19 08:15 04/04/19 12:33 04/04/19 17:07 Bedside Glucose 144 145 146 White Blood Count 8.0 Red Blood Count 3.79 L Hemoglobin 11.7 L Hematocrit 36.1 L Mean Corpuscular Volume 95.3 Mean Corpuscular 30.9 Hemoglobin Mean Corpuscular 32.4 Hemoglobin Concent Red Cell Distribution 18.4 H Width Platelet Count 140 Mean Platelet Volume 9.7 Immature Granulocytes % 0.900 H Neutrophils % 75.3 Lymphocytes % 7.1 L Monocytes % 8.1 Eosinophils % 7.4 H Basophils % 1.2 Nucleated Red Blood 0.0 Cells % Immature Granulocytes # 0.070 H Neutrophils # 6.0 Lymphocytes # 0.6 L Monocytes # 0.7 Eosinophils # 0.6 H Basophils # 0.1 Nucleated Red Blood 0.0 Cells # Sodium Level 135 Potassium Level 4.4 Chloride Level 98 Carbon Dioxide Level 25 Anion Gap 12 Blood Urea Nitrogen 24 H Creatinine 3.99 H Est Glomerular Filtrat 11 L Rate mL/min Glucose Level 143 Calcium Level 8.1 L Phosphorus Level 3.1 Magnesium Level 2.0 Test 04/04/19 22:07 Bedside Glucose 119 Subjective 24 Hr Interval Summary Free Text/Dictation late note entry note for 04/04/19> pt was seen on 04/04 pain controlled Exam/Review of Systems Exam Vitals Vital Signs Date Temp Pulse Resp B/P (MAP) Pulse Ox O2 O2 Flow FiO2 Time Delivery Rate 04/05/19 96 98/52 (67) 02:32 04/04/19 98.0 18 96 20:00 04/04/19 Room Air 14:00 Intake and Output 04/04/19 04/04/19 04/05/19 1515:00 23:00 07:00 IntakeIntake Total 290 ml 400 ml BalanceBalance 290 ml 400 ml Exam ight chest Permcath Constitutional: alert, oriented Neck: supple Respiratory: diminished breath sounds Cardiovascular: regular rate and rhythm Gastrointestinal: soft Musculoskeletal: muscle weakness, swelling, other (left foot amputated toes)EXTREMITIES: 1. Right foot: The patient has right foot Charcot right, right foot heel gangrene, status post amputation of the right first toe. 2. Left foot: The patient has gangrenous changes on the second, third, and fourth toes. The patient also has some left leg ulcer, 2 x 3 cm at the bottom of the left foot. Results Results 24hrs Laboratory Tests Test 04/04/19 07:54 04/04/19 08:15 04/04/19 12:33 04/04/19 17:07 Bedside Glucose 144 145 146 White Blood Count 8.0 Red Blood Count 3.79 L Hemoglobin 11.7 L Hematocrit 36.1 L Mean Corpuscular Volume 95.3 Mean Corpuscular 30.9 Hemoglobin Mean Corpuscular 32.4 Hemoglobin Concent Red Cell Distribution 18.4 H Width Platelet Count 140 Mean Platelet Volume 9.7 Immature Granulocytes % 0.900 H Neutrophils % 75.3 Lymphocytes % 7.1 L Monocytes % 8.1 Eosinophils % 7.4 H Basophils % 1.2 Nucleated Red Blood 0.0 Cells % Immature Granulocytes # 0.070 H Neutrophils # 6.0 Lymphocytes # 0.6 L Monocytes # 0.7 Eosinophils # 0.6 H Basophils # 0.1 Nucleated Red Blood 0.0 Cells # Sodium Level 135 Potassium Level 4.4 Chloride Level 98 Carbon Dioxide Level 25 Anion Gap 12 Blood Urea Nitrogen 24 H Creatinine 3.99 H Est Glomerular Filtrat 11 L Rate mL/min Glucose Level 143 Calcium Level 8.1 L Phosphorus Level 3.1 Magnesium Level 2.0 Test 04/04/19 22:07 Bedside Glucose 119 Medications Medication Current Medications Acetaminophen (Tylenol Tab) 650 mg Q6 PRN PO FOR FEVER Last administered on 04/01/19 14:30; Admin Dose 650 MG; Start 03/29/19 at 03:00 Albuterol (Proventil 0.083% (Neb)) 2.5 mg Q4H PRN NEB WHEEZING AND SOB Last administered on 03/30/19 20:08; Admin Dose 2.5 MG; Start 03/29/19 at 03:00 Apixaban (Eliquis) 2.5 mg DAILY PO Last administered on 04/04/19 08:39; Admin Dose 2.5 MG; Start 03/29/19 at 09:00 Atorvastatin Calcium (Lipitor) 20 mg QHS PO Last administered on 04/05/19 00:23; Admin Dose 20 MG; Start 03/29/19 at 21:00 Bisacodyl (Dulcolax) 5 mg BID PRN PO CONSTIPATION Last administered on 04/04/19 05:32; Admin Dose 5 MG; Start 03/29/19 at 03:00 Folic Acid (Folic Acid) 1 mg DAILY PO Last administered on 04/04/19 08:39; Admin Dose 1 MG; Start 03/29/19 at 09:00 Gabapentin (Neurontin) 300 mg TID PO Last administered on 04/05/19 00:24; Admin Dose 300 MG; Start 03/29/19 at 09:00 Acetaminophen/ Hydrocodone Bitart ([place] (5/325)) 1 tab Q6H PRN PO PAIN Last administered on 04/04/19 16:43; Admin Dose 1 TAB; Start 03/29/19 at 03:00 Loperamide HCl (Imodium Cap) 2 mg Q4H PRN PO NEEDED; Start 03/29/19 at 03:00 Multivit/Ca Carb/ B Cmplx/FA/Prenat ([place]Pa[place]) 1 tab DAILY PO Last administered on 04/04/19 08:40; Admin Dose 1 TAB; Start 03/29/19 at 09:00 Sevelamer Carbonate (Renvela) 0.8 gm WITH MEALS PO Last administered on 04/04/19 17:08; Admin Dose 0.8 GM; Start 03/29/19 at 08:00 Sucralfate (Carafate) 1 gm AC MEALS AND BEDTIME PO Last administered on 04/05/19 00:23; Admin Dose 1 GM; Start 03/29/19 at 07:00 Ondansetron HCl (Zofran Inj) 4 mg Q6H PRN IV NAUSEA AND/OR VOMITING; Start 03/29/19 at 04:00 Vancomycin HCl (Vanco Iv Per Pharmacy) VANCOMYCIN PER PHARMACY PER PROTOCOL XX ; Start 03/29/19 at 04:00 Insulin Aspart (Novolog Insulin Pen) NOVOLOG *MILD* ALGORITHM WITH MEALS BEDTIME SC Last administered on 04/04/19 12:39; Admin Dose 1 UNIT; Start 03/29/19 at 08:00 Miscellaneous Information (Pending [facility] Order For Wound Care) This patient davis... PRN PRN XX WOUND CARE; Start 03/29/19 at 07:30 Al Hydrox/Mg Hydrox/Simethicone (Mag-Al Plus) 30 ml Q4H PRN PO GASTROINTESTINAL UPSET Last administered on 03/30/19 12:54; Admin Dose 30 ML; Start 03/30/19 at 10:00 Zolpidem Tartrate (Ambien) 5 mg HS PRN PO INSOMNIA Last administered on 04/05/19 00:24; Admin Dose 5 MG; Start 03/30/19 at 22:30 Zinc Sulfate (Zinc Sulfate) 220 mg DAILY PO Last administered on 04/04/19 08:39; Admin Dose 220 MG; Start 03/31/19 at 14:00 Hydromorphone HCl (Dilaudid) 4 mg Q6H PRN PO PAIN 7-10/10 Last administered on 04/02/19 01:41; Admin Dose 4 MG; Start 04/01/19 at 17:00 Tramadol HCl (Ultram) 100 mg TID PO Last administered on 04/05/19 00:24; Admin Dose 100 MG; Start 04/01/19 at 21:00 Miscellaneous Information 1 ea NOTE XX ; Start 04/02/19 at 16:30 Glucose (Glutose) 15 gm Q15M PRN PO DECREASED GLUCOSE; Start 04/02/19 at 16:30 Glucose (Glutose) 22.5 gm Q15M PRN PO DECREASED GLUCOSE; Start 04/02/19 at 16:30 Dextrose (D50w Syringe) 25 ml Q15M PRN IV DECREASED GLUCOSE; Start 04/02/19 at 16:30 Dextrose (D50w Syringe) 50 ml Q15M PRN IV DECREASED GLUCOSE; Start 04/02/19 at 16:30 Glucagon (Glucagen) 1 mg Q15M PRN IM DECREASED GLUCOSE; Start 04/02/19 at 16:30 Glucose (Glutose) 15 gm Q15M PRN BUCCAL DECREASED GLUCOSE; Start 04/02/19 at 16:30 Pantoprazole (Protonix Tab) 40 mg DAILY@06 PO Last administered on 04/04/19at 05:27; Admin Dose 40 MG; Start 04/03/19 at 06:00 Heparin Sodium (Porcine) (Heparin (1000 Units/ml)) 4,000 unit AFTER DIALYSIS CATHETER Last administered on 04/03/19at 17:42; Admin Dose 3,700 UNIT; Start 04/03/19 at 09:30 Albumin Human 100 ml @ 100 mls/hr WITH DIALYSIS PRN IV SBP <90 DURING DIALYSIS Last administered on 04/03/19at 14:36; Admin Dose 100 MLS/HR; Start 04/03/19 at 14:30 Levofloxacin (Levaquin) 250 mg Q48H PO Last administered on 04/04/19at 12:39; Admin Dose 250 MG; Start 04/04/19 at 12:00 Simethicone (Mylicon) 80 mg Q6H PRN PO DISTENSION/GAS/BLOATING Last administered on 04/05/19at 00:24; Admin Dose 80 MG; Start 04/04/19 at 23:00 JACOB GONZALEZ MD April 05, 2019 05:50
[2019-04-05] MEDS: PANTOPRAZOLE (EC) 40 MG TAB PO SCH (06:16)
[2019-04-05] MEDS: INSULIN ASPART [NOVOLOG] 3 ML PEN SC SCH ×4 (08:00→21:00)
[2019-04-05] MEDS: MULTIVIT/CA CARB/B CMPLX/FA TAB PO SCH (08:34)
[2019-04-05] MEDS: ZINC SULFATE 220 MG CAP PO SCH (08:34)
[2019-04-05] MEDS: SEVELAMER CARBONATE 0.8 GM PKT PO SCH ×3 (08:35→17:25)
[2019-04-05] MEDS: APIXABAN 5 MG TABLET PO SCH (08:35)
[2019-04-05] MEDS: FOLIC ACID 1 MG TAB PO SCH (08:35)
--- NOTE | 2019-04-05 11:19 | PN ---
Date/Time of Note Date/Time of Note DATE: 04/05/19 TIME: 11:15 Assessment/Plan Lines/Catheters IV Catheter Type (from Nrsg): Saline Lock [place] in Place (from Nrsg): No Assessment/Plan Problems: (1) Steal syndrome as complication of dialysis access Status: Acute (2) Diabetes, polyneuropathy (3) Non-pressure chronic ulcer of other part of right foot with necrosis of muscle Status: Chronic (4) Charcot's joint of right foot Status: Chronic (5) Non-pressure ulcer of left lower extremity with necrosis of muscle (6) Gangrene of toe of left foot Status: Acute Assessment/Plan No surgery recommended at this time for patient's feet. Patient will have dressing changes and offloading of both feet. Betadine paint to the edge of the black eschar and normal skin on both heels and sterile dressing daily. Monitor while in-house and follow-up in my office once discharged. Subjective 24 Hr Interval Summary Patient was seen at bedside. Patient is in no acute distress. Patient reports improvement in her pain in both feet. Patient denies fever, chills, nausea or vomiting. Patient denies recent trauma. Patient reports bandages are being changed as directed. Patient does not report any new problems. Constitutional: no complaints Pain Control: well controlled Exam/Review of Systems Vital Signs Vitals Vital Signs Date Temp Pulse Resp B/P (MAP) Pulse Ox O2 O2 Flow FiO2 Time Delivery Rate 04/05/19 98.2 105 18 84/48 (60) 100 Room Air 10:07 Intake and Output 04/04/19 04/04/19 04/05/19 1515:00 23:00 07:00 IntakeIntake Total 290 ml 400 ml BalanceBalance 290 ml 400 ml Exam Free Text/Dictation General appearance: Patient is moderately obese; appears to be in no acute distress, laying supine in bed. No dressing present Vascular exam: Pedal pulses: Weakly palpable bilateral feet; CFT: Delayed bilateral feet; TG: Normal bilateral lower extremity; Edema: Mild to moderate edema bilateral lower legs and feet Neurological exam: Protective sensation is diminished to sharp, dull, vibratory and temperature stimuli bilaterally. Deep tendon reflexes are normal bilaterally. Negative Tinel sign Dermatological exam: Black eschar present bilateral heels with no sign of erythema, bleeding or pus. Gangrenous changes to the left lesser toes, stable with no bleeding or pus Toenails: Toenails are dystrophic, discolored with subungual debris Musculoskeletal exam: No tenderness on palpation of bilateral feet and ankles. Contracted toes noted on both feet. Rectus foot type noted. Muscle power is 5/5 bilateral lower extremity. Status post multiple toe amputations Labs reviewed. Results Result Diagram: 04/04/19 0815 04/04/19 0815 MONAE SCHULER DPM April 05, 2019 11:19
--- NOTE | 2019-04-05 14:30 | CONS ---
Assessment/Plan Assessment/Plan Hospital Course (Demo Recall) No acute events, alert, looks comfortable, no fevers overnight Indwelling: Right chest permacath. Microbiology: Blood cultures negative MRSA swab negative Allergy: Amoxicillin Antimicrobials: Vancomycin and cefepime Physical examination: This is a wasted well-developed fragile elderly woman who is awake the patient is in no distress. Head atraumatic normocephalic. Neck is supple. Chest rise symmetrical breath sounds diminished bases. Heart: S1-S2. Abdomen soft bowel sounds present. Extremities with bilateral lower extremities chronic changes and ulcerations, R foot with foul odor Assessment: 1. Bilateral lower extremities diabetic ulceration/gangrene 2. Right foot Charcot's joint 3. End-stage renal disease, hemodialysis dependent 4. Diabetes 5. Failure to thrive 6. Peripheral arterial disease, status post right posterior tibial artery angioplasty 03/01/19 Plan: Remains stable, ok dc on IV Vanco and PO Levaquin for 2 more weeks, poss longer, pt to follow with podiatry at [facility] after dc Consultation Date/Type/Reason Admit Date/Time Mar 28, 2019 at 16:57 Initial Consult Date 03/29/19 Type of Consult id Date/Time of Note DATE: 04/05/19 TIME: 14:26 Exam/Review of Systems Exam Vitals Vital Signs Date Temp Pulse Resp B/P (MAP) Pulse Ox O2 O2 Flow FiO2 Time Delivery Rate 04/05/19 98.2 105 18 84/48 (60) 100 Room Air 10:07 Intake and Output 04/04/19 04/04/19 04/05/19 1515:00 23:00 07:00 IntakeIntake Total 290 ml 400 ml BalanceBalance 290 ml 400 ml Results Result Diagram: 04/04/19 0815 04/04/19 0815 Results 24hrs Laboratory Tests Test 04/04/19 17:07 04/04/19 22:07 04/05/19 05:34 04/05/19 07:52 Bedside Glucose 146 119 105 Random Vancomycin Level 20.2 Test 04/05/19 11:38 Bedside Glucose 122 Medications Medication Current Medications Acetaminophen (Tylenol Tab) 650 mg Q6 PRN PO FOR FEVER Last administered on 04/01/19at 14:30; Admin Dose 650 MG; Start 03/29/19 at 03:00 Albuterol (Proventil 0.083% (Neb)) 2.5 mg Q4H PRN NEB WHEEZING AND SOB Last administered on 03/30/19 20:08; Admin Dose 2.5 MG; Start 03/29/19 at 03:00 Apixaban (Eliquis) 2.5 mg DAILY PO Last administered on 04/04/19 08:39; Admin Dose 2.5 MG; Start 03/29/19 at 09:00 Atorvastatin Calcium (Lipitor) 20 mg QHS PO Last administered on 04/05/19 00:23; Admin Dose 20 MG; Start 03/29/19 at 21:00 Bisacodyl (Dulcolax) 5 mg BID PRN PO CONSTIPATION Last administered on 04/04/19 05:32; Admin Dose 5 MG; Start 03/29/19 at 03:00 Folic Acid (Folic Acid) 1 mg DAILY PO Last administered on 04/05/19 08:35; Admin Dose 1 MG; Start 03/29/19 at 09:00 Gabapentin (Neurontin) 300 mg TID PO Last administered on 04/05/19 08:35; Admin Dose 300 MG; Start 03/29/19 at 09:00 Acetaminophen/ Hydrocodone Bitart ([place] (5/325)) 1 tab Q6H PRN PO PAIN Last administered on 04/04/19 16:43; Admin Dose 1 TAB; Start 03/29/19 at 03:00 Loperamide HCl (Imodium Cap) 2 mg Q4H PRN PO NEEDED Last administered on 04/05/19 09:45; Admin Dose 2 MG; Start 03/29/19 at 03:00 Multivit/Ca Carb/ B Cmplx/FA/Prenat ([place]) 1 tab DAILY PO Last administered on 04/05/19 08:34; Admin Dose 1 TAB; Start 03/29/19 at 09:00 Sevelamer Carbonate (Renvela) 0.8 gm WITH MEALS PO Last administered on 04/05/19 11:44; Admin Dose 0.8 GM; Start 03/29/19 at 08:00 Sucralfate (Carafate) 1 gm AC MEALS AND BEDTIME PO Last administered on 04/05/19 11:44; Admin Dose 1 GM; Start 03/29/19 at 07:00 Ondansetron HCl (Zofran Inj) 4 mg Q6H PRN IV NAUSEA AND/OR VOMITING; Start 03/29/19 at 04:00 Vancomycin HCl (Vanco Iv Per Pharmacy) VANCOMYCIN PER PHARMACY PER PROTOCOL XX ; Start 03/29/19 at 04:00 Insulin Aspart (Novolog Insulin Pen) NOVOLOG *MILD* ALGORITHM WITH MEALS BEDTIME SC Last administered on 04/04/19at 12:39; Admin Dose 1 UNIT; Start 03/29/19 at 08:00 Miscellaneous Information [facility] This patient davis... PRN PRN XX WOUND CARE; Start 03/29/19 at 07:30 Al Hydrox/Mg Hydrox/Simethicone (Mag-Al Plus) 30 ml Q4H PRN PO GASTROINTESTINAL UPSET Last administered on 03/30/19at 12:54; Admin Dose 30 ML; Start 03/30/19 at 10:00 Zolpidem Tartrate (Ambien) 5 mg HS PRN PO INSOMNIA Last administered on 04/05/19at 00:24; Admin Dose 5 MG; Start 03/30/19 at 22:30 Zinc Sulfate (Zinc Sulfate) 220 mg DAILY PO Last administered on 04/05/19 08:34; Admin Dose 220 MG; Start 03/31/19 at 14:00 Hydromorphone HCl (Dilaudid) 4 mg Q6H PRN PO PAIN 7-09/07 Last administered on 04/02/19at 01:41; Admin Dose 4 MG; Start 04/01/19 at 17:00 Tramadol HCl (Ultram) 100 mg TID PO Last administered on 04/05/19 08:34; Admin Dose 100 MG; Start 04/01/19 at 21:00 Miscellaneous Information 1 ea NOTE XX ; Start 04/02/19 at 16:30 Glucose (Glutose) 15 gm Q15M PRN PO DECREASED GLUCOSE; Start 04/02/19 at 16:30 Glucose (Glutose) 22.5 gm Q15M PRN PO DECREASED GLUCOSE; Start 04/02/19 at 16:30 Dextrose (D50w Syringe) 25 ml Q15M PRN IV DECREASED GLUCOSE; Start 04/02/19 at 16:30 Dextrose (D50w Syringe) 50 ml Q15M PRN IV DECREASED GLUCOSE; Start 04/02/19 at 16:30 Glucagon (Glucagen) 1 mg Q15M PRN IM DECREASED GLUCOSE; Start 04/02/19 at 16:30 Glucose (Glutose) 15 gm Q15M PRN BUCCAL DECREASED GLUCOSE; Start 04/02/19 at 16:30 Pantoprazole (Protonix Tab) 40 mg DAILY@06 PO Last administered on 04/05/19 06:16; Admin Dose 40 MG; Start 04/03/19 at 06:00 Heparin Sodium (Porcine) (Heparin (1000 Units/ml)) 4,000 unit AFTER DIALYSIS CATHETER Last administered on 04/03/19 17:42; Admin Dose 3,700 UNIT; Start 04/03/19 at 09:30 Albumin Human 100 ml @ 100 mls/hr WITH DIALYSIS PRN IV SBP <90 DURING DIALYSIS Last administered on 04/03/19 14:36; Admin Dose 100 MLS/HR; Start 04/03/19 at 14:30 Levofloxacin (Levaquin) 250 mg Q48H PO Last administered on 04/04/19 12:39; Admin Dose 250 MG; Start 04/04/19 at 12:00 Simethicone (Mylicon) 80 mg Q6H PRN PO DISTENSION/GAS/BLOATING Last administered on 04/05/19 00:24; Admin Dose 80 MG; Start 04/04/19 at 23:00 JOHANA KULKARNI NP April 05, 2019 14:30
--- NOTE | 2019-04-05 17:04 | QN ---
Documentation Comment SEE DC SUMMARY DC AFTER HD TODAY 2 WEEKS OF ABX NEEDED JACOB GONZALEZ MD April 05, 2019 17:04
[2019-04-05] MEDS: HEPARIN 1000 UNITS/ML 10 ML INJ CATHETER SCH (17:29)
--- NOTE | 2019-04-05 17:29 | PDOCDIS ---
Discharge Instructions DIAGNOSIS Discharge Diagnosis foot ulcer sp angioplasty ESRD CONDITION [id number] Patient Condition: [id number] Fair HOME CARE INSTRUCTIONS: [id number] Special Diet: [id number] RENAL ACTIVITY: [id number] Activity Restrictions: [id number] Slowly Increase Activity Rest between Activity FOLLOW UP/APPOINTMENTS Follow-up Plan CW VANCOMYCIN AND LEVAQUIN FOR [address] SCHULER IN [address] DAY IN 2-3 WEEKS FU PCP IN 1-2 WEEK FU HD MWF JACOB GONZALEZ MD April 05, 2019 17:29
[2019-04-05] MEDS ORDERED: VANCOMYCIN 1 GM 250 ML IVPB SCH (22:00)
--- NOTE | 2019-04-05 22:19 | DS ---
DATE OF ADMISSION: 03/28/2019 DATE OF DISCHARGE: 04/05/2019 HISTORY OF PRESENT ILLNESS AND HOSPITAL COURSE: This is a 63-year-old female with a past medical his tory of diabetes, hypertension, hypercholesterolemia, end-stage renal disease on hemodialysis, right foot ulcer, peripheral vascular disease who lives in [facility]. She was sent in from [facility], due to worsening bilateral lower extremity wounds. The patient was following Dr. Schultz and Dr. Lemus as an outpatient. The patient was noted to have a malodorous discharge from the wound, sen t to the ER for further evaluation. On admission, initially blood pressure was 110/85. White count was 11.7, platelet count 239, hemoglobin 12.9, BUN of 25, creatinine 4.34. The patient had a foot x- ray showed plantar soft tissue swelling with a small ulcer, no osteomyelitis of the right foot, mix es consistent with the right foot. The patient also had x-ray of the left foot that showed Charcot f oot. No significant change. No lytic lesion. The patient was seen by Dr. Schultz for podiatry consu ltation. The patient was started on vancomycin and Levaquin. The patient was also seen by Dr. Lemus for a vascular consultation. The patient had bilateral lower extremity gangrene. Had abdominal aor togram, bilateral lower extremity runoff and right posterior tibial artery angioplasty. The right po sterior tibial artery had about 60% to 70% stenosis and there is patent distally with no residual margarita nosis. The patient was continued on Eliquis after the procedure. Cultures were sent that were negat tad. Blood cultures had been negative. The patient's white count came down to 8.0. Per Dr. Schultz, there is no surgical intervention. He recommended no surgery. The patient will have dressing mix es, offloading of both feet, Betadine paint to the edge of the back eschar and normal skin of both he els, change dressing daily. The patient was also seen by ID and their recommendations were followed but per ID okay to discharge on IV vancomycin and Levaquin to complete 2 weeks. The patient's condition is better. The patient w as also continued hemodialysis during the hospitalization stay. Currently, the patient is stable to be discharged back to the rehabilitation. FINAL DISCHARGE DIAGNOSES: 1. Right foot gangrene and right foot necrotic ulcer secondary to severe peripheral vascular disease status post right posterior tibial angioplasty. No surgical intervention as per beveller operator, Dr. Ira sarabia. 2. Leukocytosis secondary to #1, resolved. 3. Sepsis secondary to #1, resolved. 4. Diabetes. 5. End-stage renal disease on hemodialysis. 6. Diabetes with complication of diabetic neuropathy, nephropathy, retinopathy. 7. Hypertension, currently hypotensive. 8. Secondary hyperparathyroidism. 9. Chronic atrial fibrillation. 10. History of peripheral vascular disease. 11. Hypercholesterolemia. 12. History of gastritis. 13. History of gastroparesis. DISCHARGE CONDITION: Stable. DISCHARGE DIET: Carb controlled renal diet. DISCHARGE MEDICATIONS: 1. Continue with the vancomycin and Levaquin for total of 2 weeks. 2. Simethicone p.r.n. nausea and distention, gas bloating. 3. Protonix 40. 4. Tramadol 100 mg p.o. t.i.d. p.r.n. pain. 5. Dilaudid 4 mg p.o. q.6h. p.r.n. pain. 6. Zinc sulfate daily. 7. Ambien p.r.n. insomnia. 8. Lipitor 20 mg p.o. at bedtime. 9. Eliquis 2.5 daily. 10. Folic acid 1 mg every day. 11. Gabapentin 300 p.o. t.i.d. 12. Renagel with meals. 13. Multivitamin. 14. Insulin sliding scale. 15. [place] 1 tab p.o. q.6h. p.r.n. pain. 16. Loperamide p.r.n. The patient will be followed by Dr. Schultz in 1 to 2 weeks, followed by Dr. Lemus 2 to 3 weeks. Foll ow up with the dialysis center Wednesday, Wednesday, Wednesday. Dictated By: JACOB LARA/ABHIJIT Conf#: [id number] DID#: [id number]
== END 2019-04-05 23:30 | DRG 853 ==
LOC: E/R 15:01 → 6WM 16:57 → CANRESERV 17:23 → EDBEDREQSVC 19:41 → PP2 04-03 18:45
PROVIDERS: ADMIT Internal Medicine; ATTEND Internal Medicine
PROC: 5A1D70Z Performance of Urinary Filtration, Intermittent, Less than 6 Hours Per Day (ICD-10-PCS; 2019-03-30)
PROC: B40D1ZZ Plain Radiography of Aorta and Bilateral Lower Extremity Arteries using Low Osmolar Contrast (ICD-10-PCS; 2019-03-31)
PROC: 047R3ZZ Dilation of Right Posterior Tibial Artery, Percutaneous Approach (ICD-10-PCS; principal; 2019-03-31 09:30)
DX: A41.9 Sepsis, unspecified organism (principal); N18.6 End stage renal disease; E11.52 Type 2 diabetes mellitus with diabetic peripheral angiopathy with gangrene; I96 Gangrene, not elsewhere classified; I12.0 Hypertensive chronic kidney disease with stage 5 chronic kidney disease or end stage renal disease; N25.81 Secondary hyperparathyroidism of renal origin; A52.16 Charcot's arthropathy (tabetic); I70.262 Atherosclerosis of native arteries of extremities with gangrene, left leg; I95.9 Hypotension, unspecified; E11.610 Type 2 diabetes mellitus with diabetic neuropathic arthropathy; E11.42 Type 2 diabetes mellitus with diabetic polyneuropathy; E11.621 Type 2 diabetes mellitus with foot ulcer; E13.21 Other specified diabetes mellitus with diabetic nephropathy; I48.2 Chronic atrial fibrillation; J45.909 Unspecified asthma, uncomplicated; E78.00 Pure hypercholesterolemia, unspecified; E66.9 Obesity, unspecified; Z68.33 Body mass index [BMI] 33.0-33.9, adult; E11.319 Type 2 diabetes mellitus with unspecified diabetic retinopathy without macular edema; I70.235 Atherosclerosis of native arteries of right leg with ulceration of other part of foot; L97.513 Non-pressure chronic ulcer of other part of right foot with necrosis of muscle; L97.523 Non-pressure chronic ulcer of other part of left foot with necrosis of muscle
CPT/HCPCS: 36415; 73630; 75630; 80048; 80053; 80202; 82652; 82962; 83036; 83735; 84100; 84484; 84560; 85025; 87081; 87340; 90935; 93005; 93306; 93922; 94664; 96374; C1725; C1769; C1887; C1894; C9113; J0692; J1170; J1644; J1815; J2250; J3010; J3370; J7030; L4386; P9047

== ENCOUNTER 2019-04-16 21:31 | Inpatient (IN) | payer MEDICARE, OTHER ==
[~2019-04-16] VITALS: Ht 165.1 cm; Wt 95.7 kg
[~2019-04-16 21:31] MED LIST changes: +ACET-2047 PO; +ALBU2.5V3 NEB; +ARGI1POW19 PO; -BISA-57 PO; -BISA10SU81 RC; +BISA5TAB6 PO; -CARAS PO; -DOCU-144 PO; +GLUC1KIT IJ; -GLUC1KIT2 IJ; +GUAI120L41 PO; -HYDR-3980 PO; +LINA145C PO; -METO-429 PO; +ONDA4TAB13 PO; -ONDA4TAB95 PO; +PANT40TA4 PO; +SEVE800T7 PO; +SUCR1TAB56 PO; -SVL800C PO; +TRAM100T27 PO; -TRAM50TA PO
[2019-04-16] MEDS ORDERED: morphine 4 MG/ML VIAL IV STA (22:31)
[2019-04-16] MEDS ORDERED: SOD CHLORIDE 0.9% 500 ML IV STA (22:31)
[2019-04-16] MEDS ORDERED: ONDANSETRON 4 MG INJ IV STA (22:31)
[2019-04-17] VITALS (12 sets, daily range): BP systolic 86–120; BP diastolic 43–65; PULSE 76–109; RESP 18–21; Ht 165.1 cm; Wt 95.7 kg
[2019-04-17] MEDS ORDERED: SOD CHLORIDE 0.9% 250 ML IV ONE (00:30)
--- NOTE | 2019-04-17 02:44 | ERD ---
ER Documentation Chief Complaint Chief Complaint bib self, cc: abd. pain from constipation, HPI This is a 63-year-old female who comes in with complaints of abdominal pain. She said she is been constipated. Denies any fevers or chills. Denies any nausea vomiting. Pain is mild to moderate intensity nonlocalizing. No other current complaints. ROS All systems reviewed and are negative except as per history of present illness. Medications Home Meds Reported Medications Sucralfate* (Carafate*) 1 Gm Tab, 1 GM PO AC MEALS AND BEDTIME, TAB 03/28/19 Ondansetron Hcl* (Zofran*) 4 Mg Tab, 4 MG PO Q6H PRN for NAUSEA AND/OR VOMITING, TAB 03/28/19 Hydrocodone/Acetaminophen ([place] 5-325 Tablet) 1 Each Tablet, 1 EACH PO Q6H, TAB 03/28/19 Hydromorphone Hcl* (Dilaudid*) 4 Mg Tablet, 4 MG PO Q6H PRN for PAIN -09/07, T AB 03/28/19 Bisacodyl* (Bisacodyl*) 5 Mg Tablet.dr, 5 MG PO BID, TAB 03/28/19 Insulin Aspart* (Novolog Insulin Pen*) 100 Unit/Ml Soln, 0 SC .SLIDING SCALE AC, EA IF BS 150-199=1 UNIT, 200-249=2 UNITS, 250-299=3 UNITS, 300-349=4 UNITS, OVER 349=5 UNITS CALL MD IF BS<60 OR >350 03/28/19 Pantoprazole* (Pantoprazole*) 40 Mg Tablet.dr, 40 MG PO AC BREAKFAST, TAB 03/28/19 Linaclotide (LINZESS) 145 Mcg Capsule, 145 MCG PO DAILY, #30 CAP 03/28/19 Tramadol Hcl* (Tramadol* ER) 100 Mg Tab.er.24h, 100 MG PO TID, #30 TAB 03/28/19 Guaifenesin/Codeine Phosphate (Codeine-Guaifen 10-100 mg/5 ml) 120 Ml Liquid, 5 ML PO TID 03/28/19 Sevelamer Carbonate* (Renvela*) 800 Mg Tablet, 0.8 GM PO WITH MEALS, TAB 03/28/19 Gabapentin* (Gabapentin*) 300 Mg Capsule, 300 MG PO TID, #90 CAP 03/28/19 Ipratropium-Albuterol (Ipratropium-Albuterol) 0.5-3 Mg/3 Ml Ampul.neb, 3 ML INHALATION Q4H, #30 VIAL 03/28/19 Loperamide Hcl* (Loperamide Hcl*) 2 Mg Cap, 2 MG PO Q4H PRN for NEEDED, CAP 03/28/19 Glucagon,Human Recombinant (Glucagon Emergency Kit) 1 Mg Kit, 1 MG IJ NEEDED, KIT 03/28/19 Acetaminophen* (Acetaminophen*) 650 Mg Tablet, 650 MG PO Q4H PRN for FOR FEVER, #30 TAB 03/28/19 Acetaminophen* (Acetaminophen*) 500 MG Extra Strength Tablet, 500 MG PO Q4H PRN for MILD PAIN LEVEL 1-3, TAB 03/28/19 Albuterol Sulfate* (Albuterol Sulfate* Neb) 0.083%-3 Ml Neb, 2.5 MG NEB Q4H PRN for WHEEZING AND SOB, #30 VIAL 03/28/19 Temazepam* (Restoril*) 30 Mg Capsule, 30 MG PO NEEDED PRN for INSOMNIA, CAP 03/28/19 Polyethylene Glycol* (Miralax*) 17 Gm Powd.pack, 17 GM PO DAILY, #30 PACKET 03/28/19 Benzonatate* (Benzonatate*) 100 Mg Capsule, 100 MG PO NEEDED PRN for COUGH, CAP 03/28/19 Lubiprostone* (Amitiza*) 24 Mcg Capsule, 24 MCG PO BID, #60 CAP 03/28/19 Atorvastatin Calcium* (Atorvastatin Calcium*) 20 Mg Tablet, 20 MG PO QHS, #30 TAB 03/28/19 Arginine/Ascorbate Sod/Paula AC (Arginaid Powder) 1 Each Powd.pack, 1 EACH PO DAILY 03/28/19 Multivit/Ca Carb/B Cmplx/Fa* (Suzie-Paula*) 1 Tab Tab, 1 TAB PO DAILY, TAB 03/28/19 Losartan Potassium* (Losartan Potassium*) 25 Mg Tablet, 25 MG PO DAILY, TAB HOLD IF SBP<110 OR HR<60 03/28/19 Furosemide* (Furosemide*) 20 Mg Tablet, 20 MG PO DAILY, #60 TAB 03/28/19 Folic Acid* (Folic Acid*) 1 Mg Tablet, 1 MG PO DAILY, TAB 03/28/19 Famotidine* (Famotidine*) 20 Mg Tablet, 20 MG PO DAILY, #30 TAB 03/28/19 Apixaban* (Eliquis*) 2.5 Mg Tablet, 2.5 MG PO DAILY, TAB 03/28/19 Allergies Allergies: Coded Allergies: Citalopram Analogues (Unverified Allergy, Unknown, 03/28/19) amoxicillin (Unverified Allergy, Unknown, 03/28/19) PMhx/Soc History of Surgery: Yes (right chest dialysis port, left a/v fistula) Anesthesia Reaction: No Hx Neurological Disorder: No Hx Respiratory Disorders: Yes (ASTHMA) Hx Cardiac Disorders: Yes (htn, dm) Hx Psychiatric Problems: No Hx Miscellaneous Medical Probl: Yes (dialysis every mwf) Hx Alcohol Use: No Hx Substance Use: No Hx Tobacco Use: No Smoking Status: Never smoker Physical Exam Vitals Vital Signs Date Temp Pulse Resp B/P (MAP) Pulse Ox O2 O2 Flow FiO2 Time Delivery Rate 04/17/19 95 16 94/66 (75) 99 Nasal 2.0 01:29 Cannula 04/16/19 75 16 104/61 97 Nasal 2.0 22:52 (75) Cannula 04/16/19 98.1 89 19 115/81 100 21:59 (92) Physical Exam Const: No acute distress Head: Atraumatic Eyes: Normal Conjunctiva ENT: Normal External Ears, Nose and Mouth. Neck: Full range of motion. No meningismus. Resp: Clear to auscultation bilaterally Cardio: Regular rate and rhythm, no murmurs Abd: Soft, non tender, non distended. Normal bowel sounds Skin: No petechiae or rashes Back: No midline or flank tenderness Ext: No cyanosis, or edema Neur: Awake and alert Psych: Normal Mood and Affect Result Diagram: 04/16/19224804/16/192248 Results 24 hrs Laboratory Tests Test 04/16/19 22:49 White Blood Count 11.5 10^3/ul Red Blood Count 3.89 10^6/ul Hemoglobin 11.8 g/dl Hematocrit 37.0 % Mean Corpuscular Volume 95.1 fl Mean Corpuscular Hemoglobin 30.3 pg Mean Corpuscular Hemoglobin Concent 31.9 g/dl Red Cell Distribution Width 18.1 % Platelet Count 152 10^3/UL Mean Platelet Volume 11.4 fl Immature Granulocytes % 0.700 % Neutrophils % 86.0 % Lymphocytes % 4.2 % Monocytes % 6.0 % Eosinophils % 2.4 % Basophils % 0.7 % Nucleated Red Blood Cells % 0.0 /100WBC Immature Granulocytes # 0.080 10^3/ul Neutrophils # 9.9 10^3/ul Lymphocytes # 0.5 10^3/ul Monocytes # 0.7 10^3/ul Eosinophils # 0.3 10^3/ul Basophils # 0.1 10^3/ul Nucleated Red Blood Cells # 0.0 10^3/ul Sodium Level 134 mmol/L Potassium Level 4.7 mmol/L Chloride Level 95 mmol/L Carbon Dioxide Level 26 mmol/L Anion Gap 13 Blood Urea Nitrogen 25 mg/dl Creatinine 3.92 mg/dl Est Glomerular Filtrat Rate mL/min 12 mL/min Glucose Level 158 mg/dl Calcium Level 7.9 mg/dl Total Bilirubin 0.6 mg/dl Direct Bilirubin 0.00 mg/dl Indirect Bilirubin 0.6 mg/dl Aspartate Amino Transf (AST/SGOT) 40 IU/L Alanine Aminotransferase (ALT/SGPT) 15 IU/L Alkaline Phosphatase 170 IU/L Total Protein 7.9 g/dl Albumin 3.4 g/dl Globulin 4.50 g/dl Albumin/Globulin Ratio 0.75 Lipase 22 U/L Current Medications Medications Dose Sig/Caitlyn Start Time Status Last (Trade) Ordered Route PRN Stop Time Admin Dose Reason Admin Sodium 500 ml @ Q1H STAT 04/16/19 DC 04/16/19 Chloride 500 mls/hr IV 22:31 23:21 04/16/19 23:30 Morphine 4 mg ONCE STAT 04/16/19 DC 04/16/19 Sulfate IV 22:31 23:22 (morphine) 04/16/19 22:33 Ondansetron 4 mg ONCE STAT 04/16/19 DC 04/16/19 HCl (Zofran IV 22:31 23:21 Inj) 04/16/19 22:33 Sodium 250 ml @ Q1H ONCE 04/17/19 DC 04/17/19 Chloride 250 mls/hr IV 00:30 00:30 04/17/19 01:29 Procedures/MDM EKG: Rate/Rhythm: [Normal Sinus Rhythm] QRS, ST, T-waves: [No changes consistent w/ acute ischemia] Impression: [No evidence of ischemia or arrhythmia] Chest X-ray 1V Interpreted by me: Soft Tissue: No acute abno rmalities Bones: No acute abnormalities Mediastinum/Cardiac Silhouette/Lungs: [No acute abnormalities] Medical decision making: Is a 63-year-old with abdominal pain that is undifferentiated. Her CT does show left-sided hydronephrosis without evidence of a stone, however the patient continues to have pain. Patient will be admitted to Dr. Casas who is on-call. Dr. Urias has been consulted for urology. Departure Diagnosis: Primary Impression: Abdominal pain Abdominal location: unspecified location Qualified Codes: R10.9 - Unspecified abdominal pain Condition: Serious CARLOS TAPIA April 17, 2019 02:44
[2019-04-17] MEDS ORDERED: FENTAnyl 50 MCG/ML VIAL IV ONE (04:00)
[2019-04-17] MEDS ORDERED: ONDANSETRON 4 MG TAB PO PRN (05:00)
[2019-04-17] MEDS ORDERED: ALBUTEROL 0.083% (NEB) 2.5 MG/3 ML AMP NEB PRN (05:00)
[2019-04-17] MEDS ORDERED: BENZONATATE 100 MG CAP PO PRN (05:00)
[2019-04-17] MEDS ORDERED: ACETAMINOPHEN 325 MG TAB PO PRN (05:00)
[2019-04-17] MEDS ORDERED: PENDING SANTYL ORDER FOR WOUND CARE XX PRN (05:00)
[2019-04-17] MEDS: morphine 2 MG INJ IV PRN (05:29)
[2019-04-17] MEDS ORDERED: GLUCAGON 1 MG INJ IM PRN (05:30)
[2019-04-17] MEDS ORDERED: GLUCOSE GEL 15 GRAM TUBE BUCCAL PRN (05:30)
[2019-04-17] MEDS ORDERED: GLUCOSE GEL 15 GRAM TUBE PO PRN ×2 (05:30)
[2019-04-17] MEDS ORDERED: DEXTROSE 50% 50 ML SYRINGE IV PRN ×2 (05:30)
[2019-04-17] MEDS ORDERED: PANTOPRAZOLE 40 MG INJ IV SCH (06:00)
[2019-04-17] MEDS: traMADol 50 MG TAB PO PRN ×2 (06:51→06:52)
[2019-04-17] MEDS: INSULIN ASPART [NOVOLOG] 3 ML PEN SC SCH ×4 (07:59→21:00)
[2019-04-17] MEDS: SUCRALFATE 1 GM TAB PO SCH ×4 (08:08→21:15)
[2019-04-17] MEDS: FAMOTIDINE 20 MG INJ IV SCH (08:09)
[2019-04-17] MEDS: BISACODYL (EC) 5 MG TAB PO SCH ×2 (08:11→21:15)
[2019-04-17] MEDS: APIXABAN 5 MG TABLET PO SCH (08:13)
[2019-04-17] MEDS: FOLIC ACID 1 MG TAB PO SCH (08:13)
[2019-04-17] MEDS: GABAPENTIN 300 MG CAP PO SCH ×3 (08:14→21:16)
[2019-04-17] MEDS: MULTIVIT/CA CARB/B CMPLX/FA TAB PO SCH (08:14)
[2019-04-17] MEDS: GUAIFENESIN/CODEINE 5ML CUP PO SCH ×4 (08:20→21:16)
[2019-04-17] MEDS: POLYETHYLENE GLYCOL 17 GM PACKET PO SCH (08:21)
[2019-04-17] MEDS ORDERED: NON-FORMULARY/PATIENT OWN MED (Linaclotide (Linzess) 145 MCG) PO SCH (09:00)
[2019-04-17] MEDS: ALBUTEROL/IPRATROPIUM (NEB) 3 ML AMP INH SCH ×4 (09:00→20:28)
[2019-04-17] MEDS ORDERED: LOSARTAN 25 MG TAB PO SCH (09:00)
[2019-04-17] MEDS ORDERED: FAMOTIDINE 20 MG TAB PO SCH (09:00)
[2019-04-17] MEDS: BISACODYL 10 MG SUPP PR PRN (10:11)
--- NOTE | 2019-04-17 11:40 | QN ---
Documentation Comment seen and examined JACOB GONZALEZ MD April 17, 2019 11:40
[2019-04-17] MEDS ORDERED: BISACODYL 30 ML ENEMA PR ONE (12:00)
[2019-04-17] MEDS: LUBIPROSTONE 24 MCG CAP PO SCH ×2 (12:41→21:15)
--- NOTE | 2019-04-17 14:03 | HP ---
DATE OF ADMISSION: 04/17/2019 REASON FOR ADMISSION: Abdominal pain. HISTORY OF PRESENTING ILLNESS: This is a 63-year-old female well known to our service with a history of end-stage renal disease on hemodialysis, history of diabetes, hypertension, hyperlipidemia, perip heral vascular disease, chronic AFib, who was sent in from [facility], due to severe abdominal pa in. The patient has bilateral lower extremity wounds and had been followed by Dr. Schultz as an outpa tient and has had multiple admissions in the past secondary to that. The patient was just recently d ischarged from the hospital on 04/05/2019. According to the patient, her last dialysis was Wednesday. She was doing fine until last night she started having severe lower abdominal pain. The patient was also having little nauseous. According to the patient, she had been constipated for the last 5 days. Denied any hematemesis, any melena, any bright red blood per rectum. On arrival to ED, vital signs showed a temperature of 98.1, pulse 89, respirations 19, initial blood pressure 115/81, saturating 1 00%. The patient also had a chest x-ray that showed no evidence of cardiopulmonary disease. She had a CT of the abdomen and pelvis that showed diffuse anasarca, small to moderate amount of ascites, se michael left hydronephrosis secondary to UPJ obstruction. Appendix is not identified. Status post chol ecystectomy calcifications, healed right rib fractures, mild chronic appearing T9 fracture and the patient was admitted for further management. PAST MEDICAL HISTORY: 1. End-stage renal disease on hemodialysis Wednesday, Wednesday, Wednesday. 2. Hypertension. 3. Diabetes with complications of diabetic neuropathy, nephropathy, retinopathy. 4. History of pneumonia. 5. History of chronic AFib. 6. History of cholecystectomy. 7. Anxiety. 8. Depression. 9. History of multiple AV graft revisions and thrombectomy. 10. History of gastritis. 11. History of gastroparesis. 12. History of peripheral vascular disease. ALLERGIES: 1. AMOXICILLIN. 2. CELEXA. SOCIAL HISTORY: No history of smoking or IV drug use. Currently lives in [facility]. Has a juan ghter and a son. FAMILY HISTORY: Extensive for members of the family having diabetes. MEDICATIONS TAKING AT SENIOR LIVING: 1. Eliquis 2.5 every day. 2. Suzie-[place] 1 tab daily. 3. Zinc sulfate. 4. Levaquin 250 every other day. 5. Folic acid. 6. Linzess. 7. Atorvastatin 20. 8. MiraLax powder. 9. Zolpidem. 10. Bisacodyl. 11. Amitiza 24 b.i.d. 12. Codeine. 13. Antacid. 14. Albuterol. 15. Loperamide. 16. Renagel. 17. Tramadol. 18. Gabapentin. 19. Pantoprazole. 20. Sucralfate. 21. Acetaminophen. 22. [place] q.6 p.r.n. pain. 23. Dilaudid 4 mg q.6 p.r.n. pain. 24. Zofran. 25. Simethicone. PAST SURGICAL HISTORY: The patient has had multiple AV graft revision thrombectomy, cholecystectomy, diabetic foot surgery, status post amputation. The patient also had a recent angiogram. The patien t also has a right PermCath placement. REVIEW OF SYSTEMS: The patient complained of severe pain in the abdomen. Has some nausea, passing g as. Denies any hematemesis, any melena, any bright red blood per rectum. Also, complained of bilate ral lower extremity feet pain. Denies any headache, any blurry vision. Denies any focal neurologica l deficits. PHYSICAL EXAMINATION: VITAL SIGNS: Currently, blood pressure 97/61, afebrile, heart rate is 96, saturating 100% on room ai r. GENERAL: The patient is awake, alert, oriented. NECK: Supple. No JVD. HEART: Regular rate and rhythm. LUNGS: Clear to auscultate bilaterally. ABDOMEN: Some tenderness present in the epigastric region. Positive bowel sounds. EXTREMITIES: The patient has bilateral lower extremity ulcers both on the right and left. Left foot has gangrenous ulcers on the 3rd, 4th and the 5th toes. Also, left sole of the foot, she has planta r ulcer. The patient also has a right heel ulcer. ASSESSMENT AND PLAN: This is a 63-year-old female presenting with: 1. Abdominal pain with some nausea. CT of the abdomen and pelvis showed severe left hydronephrosis, status post cholecystectomy. LFTs within normal limit except mildly elevated alkaline phosphatase. Lipase is 22. Likely secondary to constipation. 2. Severe left hydronephrosis secondary to UPJ junction, no urinary stone. 3. Bilateral lower extremity ulcers with gangrene, followed by Dr. Schultz. 4. End-stage renal disease, on hemodialysis. 5. Hypotension, on dialysis. 6. Diabetes. 7. Hypertension. 8. Peripheral vascular disease. 9. History of gastritis. 10. History of gastroparesis. 11. History of atrial fibrillation. PLAN: At this period of time, the patient will be admitted to tele. The patient will be on stool so fteners, Dulcolax suppository, Amitiza, MiraLax. If the patient does not improve, we will probably g tad the patient enema. We will continue the patient on Eliquis. Dr. Schultz's consultation has kael flower been obtained. We will hold the blood pressure medicine. The patient will be on dialysis along w ith albumin. Rest of the treatment depends on the patient's hospitalization. Dictated By: JACOB GONZALEZ RB/ABHIJIT Conf#: [id number] DID#: [id number] CC: ALONZO KNOWLES MD; LINDA FALL MD;*EndCC*
[2019-04-17] MEDS ORDERED: ALBUMIN HUMAN 25% 100 ML IV ONE (15:30)
[2019-04-17] MEDS ORDERED: VANCOMYCIN IV PER PHARMACY XX SCH (16:00)
[2019-04-17] MEDS ORDERED: LEVOFLOXACIN 250 MG TAB PO SCH (16:00)
--- NOTE | 2019-04-17 16:20 | PN ---
DATE: 04/17/2019 REFERRING PHYSICIAN: Virginia Porter MD Thank you Dr. Virginia Porter for this consultation. HISTORY OF PRESENT ILLNESS: This is a chronically ill 63-year-old woman well known to our service f rom multiple previous admissions. The patient was seen last on 04/05/2019 for bilateral lower extrem ities diabetic ulceration and gangrene. She also has a right foot Charcot joint end-stage renal dise ase, hemodialysis dependent, diabetes, peripheral arterial disease, status post right posterior tibia l artery angioplasty on 03/01/2019. The patient is being seen by Dr. Schultz and she was seen by [facility] ular surgeon. She developed severe abdominal pain with nausea and also had been constipated. CT of the abdomen revealed small to moderate amount of ascites, severe left hydronephrosis secondary to UPJ obstruction. The patient came in with a temperature of 98.1, pulse 89, respirations 19, blood press ure 115/81, saturation 100 on nasal cannula. WBC 11.5, H and H 11.8 and 38, platelets 152, neutrophils 86. Sodium 134, potassium 4.7, BUN 25, cre atinine 3.92. MICROBIOLOGY: Chest x-ray from admission revealed no evidence of acute cardiopulmonary disease. SOCIAL HISTORY: The patient came from the facility. She is on levofloxacin. ALLERGIES: SHE IS ALLERGIC TO AMOXICILLIN reaction unknown. Laboratory data today WBC went down to 10.4, H and H 11.6 and 36.2, platelets 134, neutrophils 82.4. PHYSICAL EXAMINATION: This is a chronically ill-appearing, wasted obese elderly woman who is awake, in no distress. Head atraumatic, normocephalic. NECK: Supple. CHEST: Rise symmetrical. Breath sounds diminished to bases. HEART: S1, S2. ABDOMEN: Obese, soft, bowel sounds present. EXTREMITIES: With bilateral edema, erythema bilateral feet dressing is clean, dry and intact. DIAGNOSTIC IMPRESSION: This is an unfortunate, chronically ill-appearing, elderly woman who is well known to our service. The patient admitted with acute abdominal pain with severe left hydronephrosis secondary to UPJ obstruction. The patient also with bilateral lower extremities chronic wounds, ulc erations and gangrenous changes. We are going to change levofloxacin to meropenem, start her on IV v ancomycin to cover infection in her feet and consider urology evaluation as she may need further inve stigation in regard to her UPJ obstruction. We will also order blood cultures and culture of the dra kang from the wounds of her feet. The patient will be seen by podiatry. Discussed with Dr. Roger Webb. Dictated By: JOHANA KULKARNI [employer] FE[employer]ER for ROGER KRAUSE/NTS Conf#: [id number] DID#: [id number]
[2019-04-17] MEDS ORDERED: VANCOMYCIN HCL 2 GM in SOD CHLORIDE 0.9% 500 ML IVPB SCH (17:30)
--- NOTE | 2019-04-17 18:56 | CONS ---
Assessment/Plan Assessment/Plan Hospital Course (Demo Recall) 63-year-old female who has end-stage renal disease and has been on hemodialysis on Wednesday and Wednesday presented to the emergency room with abdominal pain. She underwent a CT scan of the abdomen and pelvis and that showed left hydronephrosis secondary to ureteropelvic junction obstruction. This patient is known to sc for many years and she is known to have had the hydronephrosis with the ureteropelvic junction obstruction. She has end-stage renal disease and she no longer makes any urine and does not urinate. Patient is known to have history of hypertension, diabetes type 2, anemia, peripheral vascular disease, end-stage renal disease on hemodialysis The finding on the CT scan is not a new and she has had the left hydronephrosis all this years. She is already on hemodialysis and does not make any urine. Impression: left ureteropelvic junction obstruction with a left hydronephrosis. The kidney has very little if any parenchyma and the patient is already on hemodialysis 3 times a week therefore the recommendation would be to observe and leave her alone Consultation Date/Type/Reason Admit Date/Time April 17, 2019 at 00:03 Date of Consultation: April 17, 2019 Type of Consult Urology Reason for Consultation Left hydronephrosis Requesting Provider: ALONZO KNOWLES MD Date/Time of Note DATE: 04/17/19 TIME: 18:46 Hx of Present Illness 63-year-old female who has end-stage renal disease and has been on hemodialysis on Wednesday and Wednesday presented to the emergency room with abdominal pain. She underwent a CT scan of the abdomen and pelvis and that showed left hydronephrosis secondary to ureteropelvic junction obstruction. This patient is known to sc for many years and she is known to have had the hydronephrosis with the ureteropelvic junction obstruction. She has end-stage renal disease and she no longer makes any urine and does not urinate. Patient is known to have history of hypertension diabetes type 2 anemia peripheral vascular disease end- stage renal disease on hemodialysis Constitutional: no complaints Eyes: no complaints ENT: no complaints Respiratory: No shortness of breath Cardiovascular: No chest pain Gastrointestinal: pain (Right upper quadrant and epigastric area) Genitourinary: other (She does not urinate. She is on hemodialysis for the past 8 years) Musculoskeletal: no complaints Skin: no complaints Neurologic: no complaints Endocrine: no complaints Lymphatic: no complaints Psychological: no complaints Immunologic: no complaints Past Medical History Medical History: coronary artery disease, diabetes, high cholesterol, hypertension, renal disease Home Meds Reported Medications Sucralfate* (Carafate*) 1 Gm Tab, 1 GM PO AC MEALS AND BEDTIME, TAB 03/28/19 Ondansetron Hcl* (Zofran*) 4 Mg Tab, 4 MG PO Q6H PRN for NAUSEA AND/OR VOMITING, TAB 03/28/19 Hydrocodone/Acetaminophen (Pillager 5-325 Tablet) 1 Each Tablet, 1 EACH PO Q6H, TAB 03/28/19 Hydromorphone Hcl* (Dilaudid*) 4 Mg Tablet, 4 MG PO Q6H PRN for PAIN -09/07, TAB 03/28/19 Bisacodyl* (Bisacodyl*) 5 Mg Tablet.dr, 5 MG PO BID, TAB 03/28/19 Insulin Aspart* (Novolog Insulin Pen*) 100 Unit/Ml Soln, 0 SC .SLIDING SCALE AC, EA IF BS 150-199=1 UNIT, 200-249=2 UNITS, 250-299=3 UNITS, 300-349=4 UNITS, OVER 349=5 UNITS CALL MD IF BS<60 OR >350 03/28/19 Pantoprazole* (Pantoprazole*) 40 Mg Tablet.dr, 40 MG PO AC BREAKFAST, TAB 03/28/19 Linaclotide (LINZESS) 145 Mcg Capsule, 145 MCG PO DAILY, #30 CAP 03/28/19 Tramadol Hcl* (Tramadol* ER) 100 Mg Tab.er.24h, 100 MG PO TID, #30 TAB 03/28/19 Guaifenesin/Codeine Phosphate (Codeine-Guaifen 10-100 mg/5 ml) 120 Ml Liquid, 5 ML PO TID 03/28/19 Sevelamer Carbonate* (Renvela*) 800 Mg Tablet, 0.8 GM PO WITH MEALS, TAB 03/28/19 Gabapentin* (Gabapentin*) 300 Mg Capsule, 300 MG PO TID, #90 CAP 03/28/19 Ipratropium-Albuterol (Ipratropium-Albuterol) 0.5-3 Mg/3 Ml Ampul.neb, 3 ML INHALATION Q4H, #30 VIAL 03/28/19 Loperamide Hcl* (Loperamide Hcl*) 2 Mg Cap, 2 MG PO Q4H PRN for NEEDED, CAP 03/28/19 Glucagon,Human Recombinant (Glucagon Emergency Kit) 1 Mg Kit, 1 MG IJ NEEDED, KIT 03/28/19 Acetaminophen* (Acetaminophen*) 650 Mg Tablet, 650 MG PO Q4H PRN for FOR FEVER, #30 TAB 03/28/19 Acetaminophen* (Acetaminophen*) 500 MG Extra Strength Tablet, 500 MG PO Q4H PRN for MILD PAIN LEVEL 1-3, TAB 03/28/19 Albuterol Sulfate* (Albuterol Sulfate* Neb) 0.083%-3 Ml Neb, 2.5 MG NEB Q4H PRN for WHEEZING AND SOB, #30 VIAL 03/28/19 Temazepam* (Restoril*) 30 Mg Capsule, 30 MG PO NEEDED PRN for INSOMNIA, CAP 03/28/19 Polyethylene Glycol* (Miralax*) 17 Gm Powd.pack, 17 GM PO DAILY, #30 PACKET 03/28/19 Benzonatate* (Benzonatate*) 100 Mg Capsule, 100 MG PO NEEDED PRN for COUGH, CAP 03/28/19 Lubiprostone* (Amitiza*) 24 Mcg Capsule, 24 MCG PO BID, #60 CAP 03/28/19 Atorvastatin Calcium* (Atorvastatin Calcium*) 20 Mg Tablet, 20 MG PO QHS, #30 TAB 03/28/19 Arginine/Ascorbate Sod/Paula AC (Arginaid Powder) 1 Each Powd.pack, 1 EACH PO DAILY 03/28/19 Multivit/Ca Carb/B Cmplx/Fa* (Suzie-Paula*) 1 Tab Tab, 1 TAB PO DAILY, TAB 03/28/19 Losartan Potassium* (Losartan Potassium*) 25 Mg Tablet, 25 MG PO DAILY, TAB HOLD IF SBP<110 OR HR<60 03/28/19 Furosemide* (Furosemide*) 20 Mg Tablet, 20 MG PO DAILY, #60 TAB 03/28/19 Folic Acid* (Folic Acid*) 1 Mg Tablet, 1 MG PO DAILY, TAB 03/28/19 Famotidine* (Famotidine*) 20 Mg Tablet, 20 MG PO DAILY, #30 TAB 03/28/19 Apixaban* (Eliquis*) 2.5 Mg Tablet, 2.5 MG PO DAILY, TAB 03/28/19 Medications Current Medications Acetaminophen (Tylenol Tab) 650 mg Q4H PRN PO FOR FEVER; Start 04/17/19 at 05:00 Albuterol (Proventil 0.083% (Neb)) 2.5 mg Q4H RESP THERAPY PRN NEB WHEEZING AND SOB; Start 04/17/19 at 05:00 Apixaban (Eliquis) 2.5 mg DAILY PO Last administered on 04/17/19at 08:13; Admin Dose 2.5 MG; Start 04/17/19 at 09:00 Atorvastatin Calcium (Lipitor) 20 mg QHS PO ; Start 04/17/19 at 21:00 Benzonatate (Tessalon) 100 mg Q6 PRN PO COUGH; Start 04/17/19 at 05:00 Bisacodyl (Dulcolax) 5 mg BID PO Last administered on 04/17/19at 08:11; Admin Dose 5 MG; Start 04/17/19 at 09:00 Folic Acid (Folic Acid) 1 mg DAILY PO Last administered on 04/17/19at 08:13; Admin Dose 1 MG; Start 04/17/19 at 09:00 Gabapentin (Neurontin) 300 mg TID PO Last administered on 04/17/19at 08:14; Admin Dose 300 MG; Start 04/17/19 at 09:00 Albuterol/ Ipratropium (Duoneb) 3 ml Q4H RESP THERAPY INH ; Start 04/17/19 at 05:00 Multivit/Ca Carb/ B Cmplx/FA/Prenat (Suzie-Paula) 1 tab DAILY PO Last administered on 04/17/19at 08:14; Admin Dose 1 TAB; Start 04/17/19 at 09:00 Ondansetron HCl (Zofran Tab) 4 mg Q6H PRN PO NAUSEA AND/OR VOMITING; Start 04/17/19 at 05:00 Polyethylene Glycol (Miralax) 17 gm DAILY PO Last administered on 04/17/19at 08:21; Admin Dose 17 GM; Start 04/17/19 at 09:00 Sucralfate (Carafate) 1 gm AC MEALS AND BEDTIME PO Last administered on 04/17/19at 17:50; Admin Dose 1 GM; Start 04/17/19 at 07:00 Tramadol HCl (Ultram) 15 mg Q6H PRN PO MODERATE PAIN LEVEL 4-6; Start 04/17/19 at 05:00 Morphine Sulfate (morphine) 2 mg Q4H PRN IV SEVERE PAIN LEVEL 7-10 Last administered on 04/17/19at 05:29; Admin Dose 2 MG; Start 04/17/19 at 05:00 Diagnostic Test (Pha) (Accu-Chek) 1 ea 02 XX ; Start 04/18/19 at 02:00 Insulin Aspart (Novolog Insulin Pen) NOVOLOG *MILD* ALGORITHM WITH MEALS BEDTIME SC ; Start 04/17/19 at 08:00 [facility]isc[facility] This patient davis... PRN PRN XX WOUND CARE; Start 04/17/19 at 05:00 Famotidine (Pepcid Iv) 20 mg DAILY IV Last administered on 04/17/19at 08:09; Admin Dose 20 MG; Start 04/17/19 at 09:00 Miscellaneous Information 1 ea NOTE XX ; Start 04/17/19 at 05:30 Glucose (Glutose) 15 gm Q15M PRN PO DECREASED GLUCOSE; Start 04/17/19 at 05:30 Glucose (Glutose) 22.5 gm Q15M PRN PO DECREASED GLUCOSE; Start 04/17/19 at 05:30 Dextrose (D50w Syringe) 25 ml Q15M PRN IV DECREASED GLUCOSE; Start 04/17/19 at 05:30 Dextrose (D50w Syringe) 50 ml Q15M PRN IV DECREASED GLUCOSE; Start 04/17/19 at 05:30 Glucagon (Glucagen) 1 mg Q15M PRN IM DECREASED GLUCOSE; Start 04/17/19 at 05:30 Glucose (Glutose) 15 gm Q15M PRN BUCCAL DECREASED GLUCOSE; Start 04/17/19 at 05:30 Guaifenesin/ Codeine Phosphate (Robitussin Ac Liquid Cup) 5 ml TID PO Last administered on 04/17/19at 15:52; Admin Dose 5 ML; Start 04/17/19 at 09:00 Bisacodyl (Dulcolax Supp) 10 mg DAILY PRN IA CONSTIPATION Last administered on 04/17/19at 10:11; Admin Dose 10 MG; Start 04/17/19 at 10:00 Lubiprostone (Amitiza) 24 mcg BID PO Last administered on 04/17/19at 12:41; Admin Dose 24 MCG; Start 04/17/19 at 12:00 Heparin Sodium (Porcine) (Heparin (1000 Units/ml)) 4,000 unit AFTER DIALYSIS CATHETER ; Start 04/17/19 at 12:00 Vancomycin HCl (Vanco Iv Per Pharmacy) VANCOMYCIN PER PHARMACY PER PROTOCOL XX ; Start 04/17/19 at 16:00 Meropenem/Sodium Chloride 50 ml @ 100 mls/hr Q12 IVPB ; Start 04/17/19 at 21:00 Vancomycin HCl 2 gm/Sodium Chloride 500 ml @ 125 mls/hr NOW IVPB Last administered on 04/17/19at 17:44; Admin Dose 125 MLS/HR; Start 04/17/19 at 17:30; Stop 04/17/19 at 23:59 Allergies: Coded Allergies: Citalopram Analogues (Unverified Allergy, Unknown, 03/28/19) amoxicillin (Unverified Allergy, Unknown, 03/28/19) Past Surgical History Past Surgical Hx: angioplasty, appendectomy, cholecystectomy, endoscopy Social History Alcohol Use: none Smoking Status: Never smoker Drug Use: none Exam/Review of Systems Exam Vitals Vital Signs Date Temp Pulse Resp B/P (MAP) Pulse Ox O2 O2 Flow FiO2 Time Delivery Rate 04/17/19 109 16:01 04/17/19 97.7 18 86/43 (57) 95 15:15 04/17/19 Room Air 11:42 04/17/19 2.0 08:00 Constitutional: alert Psych: no complaints Head: normocephalic Eyes: nl conjunctiva ENMT: nl external ears & nose Neck: supple Respiratory: normal air movement; No wheezing Cardiovascular: No jugular venous distention (JVD) Gastrointestinal: soft, distended Genitourinary - Female: No CVA tenderness Extremities: No calf tenderness Neurological: nl mental status Skin: nl turgor Results Result Diagram: 04/17/19 0506 04/17/19 0506 Results 24hrs Laboratory Tests Test 04/16/19 22:49 04/17/19 05:06 04/17/19 07:59 04/17/19 11:59 White Blood Count 11.5 #H 10.4 Red Blood Count 3.89 L 3.82 L Hemoglobin 11.8 L 11.6 L Hematocrit 37.0 36.2 L Mean Corpuscular 95.1 94.8 Volume Mean Corpuscular 30.3 30.4 Hemoglobin Mean Corpuscular 31.9 L 32.0 Hemoglobin Concent Red Cell 18.1 H 18.0 H Distribution Width Platelet Count 152 134 L Mean Platelet Volume 11.4 H 10.6 H Immature 0.700 H 0.600 H Granulocytes % Neutrophils % 86.0 H 82.4 H Lymphocytes % 4.2 L 5.7 L Monocytes % 6.0 7.8 Eosinophils % 2.4 2.9 Basophils % 0.7 0.6 Nucleated Red Blood 0.0 0.0 Cells % Immature 0.080 H 0.060 H Granulocytes # Neutrophils # 9.9 H 8.5 H Lymphocytes # 0.5 L 0.6 L Monocytes # 0.7 0.8 Eosinophils # 0.3 0.3 Basophils # 0.1 0.1 Nucleated Red Blood 0.0 0.0 Cells # Sodium Level 134 L 135 Potassium Level 4.7 4.3 Chloride Level 95 L 99 Carbon Dioxide Level 26 24 Anion Gap 13 12 Blood Urea Nitrogen 25 H 24 H Creatinine 3.92 H 4.06 H Est Glomerular 12 L 11 L Filtrat Rate mL/min Glucose Level 158 130 Calcium Level 7.9 L 7.7 L Total Bilirubin 0.6 0.6 Direct Bilirubin 0.00 0.00 Indirect Bilirubin 0.6 0.6 Aspartate Amino 40 27 Transf (AST/SGOT) Alanine 15 17 Aminotransferase (AL T/SGPT) Alkaline Phosphatase 170 H 200 H Total Protein 7.9 7.8 Albumin 3.4 3.1 L Globulin 4.50 H 4.70 H Albumin/Globulin 0.75 0.65 Ratio Lipase 22 L Bedside Glucose 109 117 Test 04/17/19 16:09 04/17/19 17:24 Lactic Acid Level 1.4 Bedside Glucose [address] scan of the abdomen and pelvis: Diffuse anasarca and a small to moderate volume of ascites, limiting evaluation for intra-abdominal inflammation. Severe left hydronephrosis secondary to a UPJ obstruction. No urinary stone is identified. This could be further evaluated with a CT urogram if clinically warranted. The appendix is not identified. If there is concern for appendicitis, close clinical follow-up is recommended. Status post cholecystectomy. Severe atherosclerotic calcifications. Small pericardial effusion. Healed right rib fractures and a mild chronic-appearing T9 compression fracture. Medications Medication Current Medications Acetaminophen (Tylenol Tab) 650 mg Q4H PRN PO FOR FEVER; Start 04/17/19 at 05:00 Albuterol (Proventil 0.083% (Neb)) 2.5 mg Q4H RESP THERAPY PRN NEB WHEEZING AND SOB; Start 04/17/19 at 05:00 Apixaban (Eliquis) 2.5 mg DAILY PO Last administered on 04/17/19at 08:13; Admin Dose 2.5 MG; Start 04/17/19 at 09:00 Atorvastatin Calcium (Lipitor) 20 mg QHS PO ; Start 04/17/19 at 21:00 Benzonatate (Tessalon) 100 mg Q6 PRN PO COUGH; Start 04/17/19 at 05:00 Bisacodyl (Dulcolax) 5 mg BID PO Last administered on 04/17/19at 08:11; Admin Dose 5 MG; Start 04/17/19 at 09:00 Folic Acid (Folic Acid) 1 mg DAILY PO Last administered on 04/17/19at 08:13; Admin Dose 1 MG; Start 04/17/19 at 09:00 Gabapentin (Neurontin) 300 mg TID PO Last administered on 04/17/19 08:14; Admin Dose 300 MG; Start 04/17/19 at 09:00 Albuterol/ Ipratropium (Duoneb) 3 ml Q4H RESP THERAPY INH ; Start 04/17/19 at 05:00 Multivit/Ca Carb/ B Cmplx/FA/Prenat (Suzie-Paula) 1 tab DAILY PO Last administered on 04/17/19at 08:14; Admin Dose 1 TAB; Start 04/17/19 at 09:00 Ondansetron HCl (Zofran Tab) 4 mg Q6H PRN PO NAUSEA AND/OR VOMITING; Start 04/17/19 at 05:00 Polyethylene Glycol (Miralax) 17 gm DAILY PO Last administered on 04/17/19at 08:21; Admin Dose 17 GM; Start 04/17/19 at 09:00 Sucralfate (Carafate) 1 gm AC MEALS AND BEDTIME PO Last administered on 04/17/19at 17:50; Admin Dose 1 GM; Start 04/17/19 at 07:00 Tramadol HCl (Ultram) 15 mg Q6H PRN PO MODERATE PAIN LEVEL 4-6; Start 04/17/19 at 05:00 Morphine Sulfate (morphine) 2 mg Q4H PRN IV SEVERE PAIN LEVEL 7-10 Last administered on 04/17/19at 05:29; Admin Dose 2 MG; Start 04/17/19 at 05:00 Diagnostic Test (Pha) (Accu-Chek) 1 ea 02 XX ; Start 04/18/19 at 02:00 Insulin Aspart (Novolog Insulin Pen) NOVOLOG *MILD* ALGORITHM WITH MEALS BEDTIME SC ; Start 04/17/19 at 08:00 Miscellaneous Information (Pending [facility] Order For Wound Care) This patient davis... PRN PRN XX WOUND CARE; Start 04/17/19 at 05:00 Famotidine (Pepcid Iv) 20 mg DAILY IV Last administered on 04/17/19at 08:09; Admin Dose 20 MG; Start 04/17/19 at 09:00 Miscellaneous Information 1 ea NOTE XX ; Start 04/17/19 at 05:30 Glucose (Glutose) 15 gm Q15M PRN PO DECREASED GLUCOSE; Start 04/17/19 at 05:30 Glucose (Glutose) 22.5 gm Q15M PRN PO DECREASED GLUCOSE; Start 04/17/19 at 05:30 Dextrose (D50w Syringe) 25 ml Q15M PRN IV DECREASED GLUCOSE; Start 04/17/19 at 05:30 Dextrose (D50w Syringe) 50 ml Q15M PRN IV DECREASED GLUCOSE; Start 04/17/19 at 05:30 Glucagon (Glucagen) 1 mg Q15M PRN IM DECREASED GLUCOSE; Start 04/17/19 at 05:30 Glucose (Glutose) 15 gm Q15M PRN BUCCAL DECREASED GLUCOSE; Start 04/17/19 at 05:30 Guaifenesin/ Codeine Phosphate (Robitussin Ac Liquid Cup) 5 ml TID PO Last administered on 04/17/19at 15:52; Admin Dose 5 ML; Start 04/17/19 at 09:00 Bisacodyl (Dulcolax Supp) 10 mg DAILY PRN IA CONSTIPATION Last administered on 04/17/19at 10:11; Admin Dose 10 MG; Start 04/17/19 at 10:00 Lubiprostone (Amitiza) 24 mcg BID PO Last administered on 04/17/19at 12:41; Admin Dose 24 MCG; Start 04/17/19 at 12:00 Heparin Sodium (Porcine) (Heparin (1000 Units/ml)) 4,000 unit AFTER DIALYSIS CATHETER ; Start 04/17/19 at 12:00 Vancomycin HCl (Vanco Iv Per Pharmacy) VANCOMYCIN PER PHARMACY PER PROTOCOL XX ; Start 04/17/19 at 16:00 Meropenem/Sodium Chloride 50 ml @ 100 mls/hr Q12 IVPB ; Start 04/17/19 at 21:00 Vancomycin HCl 2 gm/Sodium Chloride 500 ml @ 125 mls/hr NOW IVPB Last administered on 04/17/19at 17:44; Admin Dose 125 MLS/HR; Start 04/17/19 at 17:30; Stop 04/17/19 at 23:59 LINDA FALL MD April 17, 2019 18:56
[2019-04-17] MEDS: MEROPENEM 500MG/50 ML (PMX) 50 ML IVPB SCH (21:14)
[2019-04-17] MEDS: ATORVASTATIN 20 MG TAB PO SCH (21:16)
[2019-04-18] VITALS (24 sets, daily range): BP systolic 90–135; BP diastolic 43–93; PULSE 97–118; RESP 18–20
[2019-04-18] MEDS: ALBUTEROL/IPRATROPIUM (NEB) 3 ML AMP INH SCH ×5 (01:00→20:24)
[2019-04-18] MEDS: ACCU-CHEK XX SCH (02:00)
[2019-04-18] MEDS: INSULIN ASPART [NOVOLOG] 3 ML PEN SC SCH ×4 (08:00→21:00)
[2019-04-18] MEDS: SUCRALFATE 1 GM TAB PO SCH ×4 (08:02→21:43)
[2019-04-18] MEDS: APIXABAN 5 MG TABLET PO SCH (08:44)
[2019-04-18] MEDS: BISACODYL (EC) 5 MG TAB PO SCH ×2 (08:44→21:44)
[2019-04-18] MEDS: GABAPENTIN 300 MG CAP PO SCH ×3 (08:44→21:44)
[2019-04-18] MEDS: MULTIVIT/CA CARB/B CMPLX/FA TAB PO SCH (08:44)
[2019-04-18] MEDS: FOLIC ACID 1 MG TAB PO SCH (08:44)
[2019-04-18] MEDS: LUBIPROSTONE 24 MCG CAP PO SCH ×2 (08:44→21:43)
[2019-04-18] MEDS: BALSAM PERU/CASTOR OIL 60 GM TUBE TOP SCH ×3 (08:45→21:45)
[2019-04-18] MEDS: POLYETHYLENE GLYCOL 17 GM PACKET PO SCH (08:48)
[2019-04-18] MEDS: FAMOTIDINE 20 MG INJ IV SCH (08:54)
[2019-04-18] MEDS: GUAIFENESIN/CODEINE 5ML CUP PO SCH ×3 (08:54→21:44)
[2019-04-18] MEDS ORDERED: BALSAM PERU/CASTOR OIL 60 GM TUBE TOP SCH (09:00)
[2019-04-18] MEDS: traMADol 50 MG TAB PO PRN (10:56)
[2019-04-18] MEDS ORDERED: HYDROmorphONE 4 MG TAB PO PRN (11:30)
--- NOTE | 2019-04-18 11:31 | PN ---
Date/Time of Note Date/Time of Note DATE: 04/18/19 TIME: 11:24 Assessment/Plan VTE Prophylaxis Risk score (from Nsg)>0 risk: 5 SCD applied (from Nsg): No SCD contraindicated: low risk/ambulating Pharmacological prophylaxis: NA/contraindicated Pharm contraindication: low risk/ambulating Lines/Catheters IV Catheter Type (from Nrsg): Peripheral IV Assessment/Plan Assessment/Plan This is a 63-year-old female presenting with: 1. Abdominal pain with some nausea. CT of the abdomen and pelvis showed severe left hydronephrosis, status post cholecystectomy. LFTs within normal limit except mildly elevated alkaline phosphatase. Lipase is 22. Likely secondary to constipation vs gastritis vs gastroparesis 2. Severe left hydronephrosis secondary to UPJ junction, no urinary stone. probabaly chronic , no intervention per urology 3. Bilateral lower extremity ulcers with gangrene, followed by Dr. Schultz. 4. End-stage renal disease, on hemodialysis. 5. Hypotension, on dialysis. could be secondary to infectied ulcers, hold bp meds 6. Diabetes. 7. Hypertension. 8. Peripheral vascular disease. 9. History of gastritis. 10. History of gastroparesis. 11. History of atrial fibrillation. Plan - iv vanco/meropenam per ID - 2nd opinion with Dr ramirez for ulcers - iv albumin needed with HD support - pain control with morphine./tramadaol - cw eliquis - GI consult - podiatry consult gi/dvt prophylaxsis Result Diagram: 04/17/19 0506 04/17/19 0506 Results 24hrs Laboratory Tests Test 04/17/19 11:59 04/17/19 16:09 04/17/19 17:24 04/17/19 21:10 Bedside Glucose 117 115 128 Lactic Acid Level 1.4 Test 04/18/19 08:01 Bedside Glucose 97 Subjective 24 Hr Interval Summary Free Text/Dictation abdoominal pain ble pain in feet Exam/Review of Systems Exam Vitals Vital Signs Date Temp Pulse Resp B/P (MAP) Pulse Ox O2 O2 Flow FiO2 Time Delivery Rate 04/18/19 2.0 08:27 04/18/19 100 18 98 Nasal 08:27 Cannula 04/18/19 97.8 98/54 (69) 07:38 04/17/19 28 20:29 Intake and Output 04/17/19 04/17/19 04/18/19 1515:00 23:00 07:00 IntakeIntake Total 300 ml 250 ml BalanceBalance 300 ml 250 ml Exam GENERAL: The patient is awake, alert, oriented. NECK: Supple. No JVD. HEART: Regular rate and rhythm. LUNGS: Clear to auscultate bilaterally. ABDOMEN: Some tenderness present in the epigastric region. Positive bowel sounds. EXTREMITIES: .poor peripheal pulses Bilateral heels arterial ulcers with 100% black eschar.- Left toes and partial foot gangrene. Moderate serosanguineous drainage. Malodor. Results Results 24hrs Laboratory Tests Test 04/17/19 11:59 04/17/19 16:09 04/17/19 17:24 04/17/19 21:10 Bedside Glucose 117 115 128 Lactic Acid Level 1.4 Test 04/18/19 08:01 Bedside Glucose 97 Medications Medication Current Medications Acetaminophen (Tylenol Tab) 650 mg Q4H PRN PO FOR FEVER; Start 04/17/19 at 05:00 Albuterol (Proventil 0.083% (Neb)) 2.5 mg Q4H RESP THERAPY PRN NEB WHEEZING AND SOB; Start 04/17/19 at 05:00 Apixaban (Eliquis) 2.5 mg DAILY PO Last administered on 04/18/19at 08:44; Admin Dose 2.5 MG; Start 04/17/19 at 09:00 Atorvastatin Calcium (Lipitor) 20 mg QHS PO Last administered on 04/17/19at 21:16; Admin Dose 20 MG; Start 04/17/19 at 21:00 Benzonatate (Tessalon) 100 mg Q6 PRN PO COUGH; Start 04/17/19 at 05:00 Bisacodyl (Dulcolax) 5 mg BID PO Last administered on 04/18/19at 08:44; Admin Dose 5 MG; Start 04/17/19 at 09:00 Folic Acid (Folic Acid) 1 mg DAILY PO Last administered on 04/18/19at 08:44; Admin Dose 1 MG; Start 04/17/19 at 09:00 Gabapentin (Neurontin) 300 mg TID PO Last administered on 04/18/19at 08:44; Admin Dose 300 MG; Start 04/17/19 at 09:00 Albuterol/ Ipratropium (Duoneb) 3 ml Q4H RESP THERAPY INH Last administered on 04/18/19at 08:27; Admin Dose 3 ML; Start 04/17/19 at 05:00 Multivit/Ca Carb/ B Cmplx/FA/Prenat (Suzie-Paula) 1 tab DAILY PO Last administered on 04/18/19at 08:44; Admin Dose 1 TAB; Start 04/17/19 at 09:00 Ondansetron HCl (Zofran Tab) 4 mg Q6H PRN PO NAUSEA AND/OR VOMITING; Start 04/17/19 at 05:00 Polyethylene Glycol (Miralax) 17 gm DAILY PO Last administered on 04/18/19at 08:48; Admin Dose 17 GM; Start 04/17/19 at 09:00 Sucralfate (Carafate) 1 gm AC MEALS AND BEDTIME PO Last administered on 04/18/19at 08:02; Admin Dose 1 GM; Start 04/17/19 at 07:00 Morphine Sulfate (morphine) 2 mg Q4H PRN IV SEVERE PAIN LEVEL 7-10 Last administered on 04/17/19at 05:29; Admin Dose 2 MG; Start 04/17/19 at 05:00 Diagnostic Test (Pha) (Accu-Chek) 1 ea 02 XX ; Start 04/18/19 at 02:00 Insulin Aspart (Novolog Insulin Pen) NOVOLOG *MILD* ALGORITHM WITH MEALS BEDTIME SC ; Start 04/17/19 at 08:00 Miscellaneous Information (Pending [facility] Order For Wound Care) This patient davis... PRN PRN XX WOUND CARE; Start 04/17/19 at 05:00 Miscellaneous Information 1 ea NOTE XX ; Start 04/17/19 at 05:30 Glucose (Glutose) 15 gm Q15M PRN PO DECREASED GLUCOSE; Start 04/17/19 at 05:30 Glucose (Glutose) 22.5 gm Q15M PRN PO DECREASED GLUCOSE; Start 04/17/19 at 05:30 Dextrose (D50w Syringe) 25 ml Q15M PRN IV DECREASED GLUCOSE; Start 04/17/19 at 05:30 Dextrose (D50w Syringe) 50 ml Q15M PRN IV DECREASED GLUCOSE; Start 04/17/19 at 05:30 Glucagon (Glucagen) 1 mg Q15M PRN IM DECREASED GLUCOSE; Start 04/17/19 at 05:30 Glucose (Glutose) 15 gm Q15M PRN BUCCAL DECREASED GLUCOSE; Start 04/17/19 at 05:30 Guaifenesin/ Codeine Phosphate (Robitussin Ac Liquid Cup) 5 ml TID PO Last administered on 04/18/19at 08:54; Admin Dose 5 ML; Start 04/17/19 at 09:00 Bisacodyl (Dulcolax Supp) 10 mg DAILY PRN SC CONSTIPATION Last administered on 04/17/19at 10:11; Admin Dose 10 MG; Start 04/17/19 at 10:00 Lubiprostone (Amitiza) 24 mcg BID PO Last administered on 04/18/19at 08:44; Admin Dose 24 MCG; Start 04/17/19 at 12:00 Heparin Sodium (Porcine) (Heparin (1000 Units/ml)) 4,000 unit AFTER DIALYSIS CATHETER ; Start 04/17/19 at 12:00 Vancomycin HCl (Vanco Iv Per Pharmacy) VANCOMYCIN PER PHARMACY PER PROTOCOL XX ; Start 04/17/19 at 16:00 Meropenem/Sodium Chloride 50 ml @ 100 mls/hr Q12 IVPB Last administered on 04/17/19at 21:14; Admin Dose 100 MLS/HR; Start 04/17/19 at 21:00 Tramadol HCl (Ultram) 50 mg Q6H PRN PO MODERATE PAIN LEVEL 4-6 Last administered on 04/18/19at 10:56; Admin Dose 50 MG; Start 04/18/19 at 11:00 Pantoprazole (Protonix Iv) 40 mg BID@06,18 IV ; Start 04/18/19 at 18:00; Status JACOB HATCH MD April 18, 2019 11:31
[2019-04-18] MEDS: MEROPENEM 500MG/50 ML (PMX) 50 ML IVPB SCH ×2 (12:15→21:43)
--- NOTE | 2019-04-18 13:19 | CONS ---
Assessment/Plan Assessment/Plan Problems: (1) Peripheral vascular disease (2) Gangrene of left foot (3) Gangrene of toe of left foot (4) Non-pressure ulcer of left lower extremity with necrosis of muscle (5) Non-pressure chronic ulcer of other part of right foot with necrosis of muscle Status: Chronic (6) Charcot's joint of right foot Status: Chronic (7) Diabetes, polyneuropathy Assessment/Plan (Daily) Vascular surgery consultation recommended. Daily dressing change bilateral feet. Betadine to the left foot in the forefoot area. Elevate heels off the bedding. Patient will be followed in-house. Thank you again for involving me in the care of this patient. If you have any questions regarding this case, please feel free to contact me at pager: or reach me at mobile: [phone]. Consultation Date/Type/Reason Admit Date/Time April 17, 2019 at 00:03 Date of Consultation: April 18, 2019 Type of Consult Foot and ankle consultation. Date/Time of Note DATE: 04/18/19 TIME: 13:17 Hx of Present Illness Thank you very much for your kind consultation. As you know this is a 63-year-old female well known to my service with multiple medical problems including history of end-stage renal disease on hemodialysis, history of di abetes, hypertension, hyperlipidemia, peripheral vascular disease, chronic AFib, prior history of left foot toe amputation and severe Charcot changes of both feet, who was sent in from [facility], secondary to severe abdominal pain. The patient was just recently discharged from the hospital on 04/05/2019. I was consulted for evaluation of her feet during this admission. Patient denies pain in her feet but reports that her left foot is turning black. Past Medical History Medical History: coronary artery disease, diabetes, high cholesterol, hypertension, renal disease Home Meds Reported Medications Sucralfate* (Carafate*) 1 Gm Tab, 1 GM PO AC MEALS AND BEDTIME, TAB 03/28/19 Ondansetron Hcl* (Zofran*) 4 Mg Tab, 4 MG PO Q6H PRN for NAUSEA AND/OR VOMITING, TAB 03/28/19 Hydrocodone/Acetaminophen ([place] 5-325 Tablet) 1 Each Tablet, 1 EACH PO Q6H, TAB 03/28/19 Hydromorphone Hcl* (Dilaudid*) 4 Mg Tablet, 4 MG PO Q6H PRN for PAIN 7-09/07, TAB 03/28/19 Bisacodyl* (Bisacodyl*) 5 Mg Tablet.dr, 5 MG PO BID, TAB 03/28/19 Insulin Aspart* (Novolog Insulin Pen*) 100 Unit/Ml Soln, 0 SC .SLIDING SCALE AC, EA IF BS 150-199=1 UNIT, 200-249=2 UNITS, 250-299=3 UNITS, 300-349=4 UNITS, OVER 349=5 UNITS CALL MD IF BS<60 OR >350 03/28/19 Pantoprazole* (Pantoprazole*) 40 Mg Tablet.dr, 40 MG PO AC BREAKFAST, TAB 03/28/19 Linaclotide (LINZESS) 145 Mcg Capsule, 145 MCG PO DAILY, #30 CAP 03/28/19 Tramadol Hcl* (Tramadol* ER) 100 Mg Tab.er.24h, 100 MG PO TID, #30 TAB 03/28/19 Guaifenesin/Codeine Phosphate (Codeine-Guaifen 10-100 mg/5 ml) 120 Ml Liquid, 5 ML PO TID 03/28/19 Sevelamer Carbonate* (Renvela*) 800 Mg Tablet, 0.8 GM PO WITH MEALS, TAB 03/28/19 Gabapentin* (Gabapentin*) 300 Mg Capsule, 300 MG PO TID, #90 CAP 03/28/19 Ipratropium-Albuterol (Ipratropium-Albuterol) 0.5-3 Mg/3 Ml Ampul.neb, 3 ML INHALATION Q4H, #30 VIAL 03/28/19 Loperamide Hcl* (Loperamide Hcl*) 2 Mg Cap, 2 MG PO Q4H PRN for NEEDED, CAP 03/28/19 Glucagon,Human Recombinant (Glucagon Emergency Kit) 1 Mg Kit, 1 MG IJ NEEDED, KIT 03/28/19 Acetaminophen* (Acetaminophen*) 650 Mg Tablet, 650 MG PO Q4H PRN for FOR FEVER, #30 TAB 03/28/19 Acetaminophen* (Acetaminophen*) 500 MG Extra Strength Tablet, 500 MG PO Q4H PRN for MILD PAIN LEVEL 1-3, TAB 03/28/19 Albuterol Sulfate* (Albuterol Sulfate* Neb) 0.083%-3 Ml Neb, 2.5 MG NEB Q4H PRN for WHEEZING AND SOB, #30 VIAL 03/28/19 Temazepam* (Restoril*) 30 Mg Capsule, 30 MG PO NEEDED PRN for INSOMNIA, CAP 03/28/19 Polyethylene Glycol* (Miralax*) 17 Gm Powd.pack, 17 GM PO DAILY, #30 PACKET 03/28/19 Benzonatate* (Benzonatate*) 100 Mg Capsule, 100 MG PO NEEDED PRN for COUGH, CAP 03/28/19 Lubiprostone* (Amitiza*) 24 Mcg Capsule, 24 MCG PO BID, #60 CAP 03/28/19 Atorvastatin Calcium* (Atorvastatin Calcium*) 20 Mg Tablet, 20 MG PO QHS, #30 TAB 03/28/19 Arginine/Ascorbate Sod/Paula AC (Arginaid Powder) 1 Each Powd.pack, 1 EACH PO DAILY 03/28/19 Multivit/Ca Carb/B Cmplx/Fa* (Suzie-Paula*) 1 Tab Tab, 1 TAB PO DAILY, TAB 03/28/19 Losartan Potassium* (Losartan Potassium*) 25 Mg Tablet, 25 MG PO DAILY, TAB HOLD IF SBP<110 OR HR<60 03/28/19 Furosemide* (Furosemide*) 20 Mg Tablet, 20 MG PO DAILY, #60 TAB 03/28/19 Folic Acid* (Folic Acid*) 1 Mg Tablet, 1 MG PO DAILY, TAB 03/28/19 Famotidine* (Famotidine*) 20 Mg Tablet, 20 MG PO DAILY, #30 TAB 03/28/19 Apixaban* (Eliquis*) 2.5 Mg Tablet, 2.5 MG PO DAILY, TAB 03/28/19 Medications Current Medications Acetaminophen (Tylenol Tab) 650 mg Q4H PRN PO FOR FEVER; Start 04/17/19 at 05:00 Albuterol (Proventil 0.083% (Neb)) 2.5 mg Q4H RESP THERAPY PRN NEB WHEEZING AND SOB; Start 04/17/19 at 05:00 Apixaban (Eliquis) 2.5 mg DAILY PO Last administered on 04/18/19at 08:44; Admin Dose 2.5 MG; Start 04/17/19 at 09:00 Atorvastatin Calcium (Lipitor) 20 mg QHS PO Last administered on 04/17/19 21:16; Admin Dose 20 MG; Start 04/17/19 at 21:00 Benzonatate (Tessalon) 100 mg Q6 PRN PO COUGH; Start 04/17/19 at 05:00 Bisacodyl (Dulcolax) 5 mg BID PO Last administered on 04/18/19 08:44; Admin Dose 5 MG; Start 04/17/19 at 09:00 Folic Acid (Folic Acid) 1 mg DAILY PO Last administered on 04/18/19 08:44; Admin Dose 1 MG; Start 04/17/19 at 09:00 Gabapentin (Neurontin) 300 mg TID PO Last administered on 04/18/19 08:44; Admin Dose 300 MG; Start 04/17/19 at 09:00 Albuterol/ Ipratropium (Duoneb) 3 ml Q4H RESP THERAPY INH Last administered on 04/18/19 08:27; Admin Dose 3 ML; Start 04/17/19 at 05:00 Multivit/Ca Carb/ B Cmplx/FA/Prenat (Suzie-Paula) 1 tab DAILY PO Last administered on 04/18/19 08:44; Admin Dose 1 TAB; Start 04/17/19 at 09:00 Ondansetron HCl (Zofran Tab) 4 mg Q6H PRN PO NAUSEA AND/OR VOMITING; Start 04/17/19 at 05:00 Polyethylene Glycol (Miralax) 17 gm DAILY PO Last administered on 04/18/19 08:48; Admin Dose 17 GM; Start 04/17/19 at 09:00 Sucralfate (Carafate) 1 gm AC MEALS AND BEDTIME PO Last administered on 04/18/19 08:02; Admin Dose 1 GM; Start 04/17/19 at 07:00 Morphine Sulfate (morphine) 2 mg Q4H PRN IV SEVERE PAIN LEVEL 7-10 Last administered on 04/17/19 05:29; Admin Dose 2 MG; Start 04/17/19 at 05:00 Diagnostic Test (Pha) (Accu-Chek) 1 ea 02 XX ; Start 04/18/19 at 02:00 Insulin Aspart (Novolog Insulin Pen) NOVOLOG *MILD* ALGORITHM WITH MEALS BEDTIME SC ; Start 04/17/19 at 08:00 Miscellaneous Information ([facility]) This patient davis... PRN PRN XX WOUND CARE; Start 04/17/19 at 05:00 Miscellaneous Information 1 ea NOTE XX ; Start 04/17/19 at 05:30 Glucose (Glutose) 15 gm Q15M PRN PO DECREASED GLUCOSE; Start 04/17/19 at 05:30 Glucose (Glutose) 22.5 gm Q15M PRN PO DECREASED GLUCOSE; Start 04/17/19 at 05:30 Dextrose (D50w Syringe) 25 ml Q15M PRN IV DECREASED GLUCOSE; Start 04/17/19 at 05:30 Dextrose (D50w Syringe) 50 ml Q15M PRN IV DECREASED GLUCOSE; Start 04/17/19 at 05:30 Glucagon (Glucagen) 1 mg Q15M PRN IM DECREASED GLUCOSE; Start 04/17/19 at 05:30 Glucose (Glutose) 15 gm Q15M PRN BUCCAL DECREASED GLUCOSE; Start 04/17/19 at 05:30 Guaifenesin/ Codeine Phosphate (Robitussin Ac Liquid Cup) 5 ml TID PO Last administered on 04/18/19at 08:54; Admin Dose 5 ML; Start 04/17/19 at 09:00 Bisacodyl (Dulcolax Supp) 10 mg DAILY PRN [place] CONSTIPATION Last administered on 04/17/19at 10:11; Admin Dose 10 MG; Start 04/17/19 at 10:00 Lubiprostone (Amitiza) 24 mcg BID PO Last administered on 04/18/19at 08:44; Admin Dose 24 MCG; Start 04/17/19 at 12:00 Heparin Sodium (Porcine) (Heparin (1000 Units/ml)) 4,000 unit AFTER DIALYSIS CATHETER ; Start 04/17/19 at 12:00 Vancomycin HCl (Vanco Iv Per Pharmacy) VANCOMYCIN PER PHARMACY PER PROTOCOL XX ; Start 04/17/19 at 16:00 Meropenem/Sodium Chloride 50 ml @ 100 mls/hr Q12 IVPB Last administered on 04/18/19at 12:15; Admin Dose 100 MLS/HR; Start 04/17/19 at 21:00 Tramadol HCl (Ultram) 50 mg Q6H PRN PO MODERATE PAIN LEVEL 4-6 Last administered on 04/18/19at 10:56; Admin Dose 50 MG; Start 04/18/19 at 11:00 Hydromorphone HCl (Dilaudid) 4 mg Q6H PRN PO PAIN 7-10/10; Start 04/18/19 at 11:30 Povidone Iodine (Povidone-Iodine) 1 applic DAILY TOP ; Start 04/18/19 at 13:00 Pantoprazole (Protonix Tab) 40 mg BID@0600,1800 PO ; Start 04/18/19 at 18:00 Miscellaneous Information (*Rx Drug Level Order Reminder*) RANDOM VANCO W/ AM LABS... 0500 ONCE XX ; Start 04/19/19 at 05:00; Stop 04/19/19 at 05:01 Allergies: Coded Allergies: Citalopram Analogues (Unverified Allergy, Unknown, 03/28/19) amoxicillin (Unverified Allergy, Unknown, 03/28/19) Past Surgical History Past Surgical Hx: angioplasty, appendectomy, cholecystectomy, endoscopy Social History Alcohol Use: none Smoking Status: Never smoker Drug Use: none Exam/Review of Systems Exam Vitals Vital Signs Date Temp Pulse Resp B/P (MAP) Pulse Ox O2 O2 Flow FiO2 Time Delivery Rate 04/18/19 118 91/93 (92) 11:56 04/18/19 2.0 08:27 04/18/19 18 98 Nasal 08:27 Cannula 04/18/19 97.8 07:38 04/17/19 28 20:29 Intake and Output 04/17/19 04/17/19 04/18/19 1515:00 23:00 07:00 IntakeIntake Total 300 ml 250 ml BalanceBalance 300 ml 250 ml Exam Patient is lying supine in bed in no acute distress. Bilateral lower extremity hyperpigmentation noted with edema. Bilateral heel dry eschar is present with no proximal and no bleeding. Distal left forefoot gangrene present involving the third, fourth and fifth toes and the base of the sulcus of the lateral forefoot. There is tenderness to palpation with mild odor. No active bleeding or possibly noted. No fluctuance present. Dorsalis pedis pulse is weak and posterior tibial pulses are absent bilaterally. Temperature gradient is within normal limits at this time. Labs reviewed. Imaging reviewed. Results Result Diagram: 04/17/19 0506 04/17/19 0506 Results 24hrs Laboratory Tests Test 04/17/19 16:09 04/17/19 17:24 04/17/19 21:10 04/18/19 08:01 Lactic Acid Level 1.4 Bedside Glucose 115 128 97 Medications Medication Current Medications Acetaminophen (Tylenol Tab) 650 mg Q4H PRN PO FOR FEVER; Start 04/17/19 at 05:00 Albuterol (Proventil 0.083% (Neb)) 2.5 mg Q4H RESP THERAPY PRN NEB WHEEZING AND SOB; Start 04/17/19 at 05:00 Apixaban (Eliquis) 2.5 mg DAILY PO Last administered on 04/18/19 08:44; Admin Dose 2.5 MG; Start 04/17/19 at 09:00 Atorvastatin Calcium (Lipitor) 20 mg QHS PO Last administered on 04/17/19 21:16; Admin Dose 20 MG; Start 04/17/19 at 21:00 Benzonatate (Tessalon) 100 mg Q6 PRN PO COUGH; Start 04/17/19 at 05:00 Bisacodyl (Dulcolax) 5 mg BID PO Last administered on 04/18/19 08:44; Admin Dose 5 MG; Start 04/17/19 at 09:00 Folic Acid (Folic Acid) 1 mg DAILY PO Last administered on 04/18/19 08:44; Admin Dose 1 MG; Start 04/17/19 at 09:00 Gabapentin (Neurontin) 300 mg TID PO Last administered on 04/18/19 08:44; Admi n Dose 300 MG; Start 04/17/19 at 09:00 Albuterol/ Ipratropium (Duoneb) 3 ml Q4H RESP THERAPY INH Last administered on 04/18/19 08:27; Admin Dose 3 ML; Start 04/17/19 at 05:00 Multivit/Ca Carb/ B Cmplx/FA/Prenat (Suzie-Paula) 1 tab DAILY PO Last administered on 04/18/19 08:44; Admin Dose 1 TAB; Start 04/17/19 at 09:00 Ondansetron HCl (Zofran Tab) 4 mg Q6H PRN PO NAUSEA AND/OR VOMITING; Start at 05:00 Polyethylene Glycol (Miralax) 17 gm DAILY PO Last administered on 04/18/19 08:48; Admin Dose 17 GM; Start 04/17/19 at 09:00 Sucralfate (Carafate) 1 gm AC MEALS AND BEDTIME PO Last administered on 04/18/19at 08:02; Admin Dose 1 GM; Start 04/17/19 at 07:00 Morphine Sulfate (morphine) 2 mg Q4H PRN IV SEVERE PAIN LEVEL 7-10 Last administered on 04/17/19at 05:29; Admin Dose 2 MG; Start 04/17/19 at 05:00 Diagnostic Test (Pha) (Accu-Chek) 1 ea 02 XX ; Start 04/18/19 at 02:00 Insulin Aspart (Novolog Insulin Pen) NOVOLOG *MILD* ALGORITHM WITH MEALS BEDTIME SC ; Start 04/17/19 at 08:00 Miscellaneous Information (Pending [facility] Order For Wound Care) This patient davis... PRN PRN XX WOUND CARE; Start 04/17/19 at 05:00 Miscellaneous Information 1 ea NOTE XX ; Start 04/17/19 at 05:30 Glucose (Glutose) 15 gm Q15M PRN PO DECREASED GLUCOSE; Start 04/17/19 at 05:30 Glucose (Glutose) 22.5 gm Q15M PRN PO DECREASED GLUCOSE; Start 04/17/19 at 05:30 Dextrose (D50w Syringe) 25 ml Q15M PRN IV DECREASED GLUCOSE; Start 04/17/19 at 05:30 Dextrose (D50w Syringe) 50 ml Q15M PRN IV DECREASED GLUCOSE; Start 04/17/19 at 05:30 Glucagon (Glucagen) 1 mg Q15M PRN IM DECREASED GLUCOSE; Start 04/17/19 at 05:30 Glucose (Glutose) 15 gm Q15M PRN BUCCAL DECREASED GLUCOSE; Start 04/17/19 at 05:30 Guaifenesin/ Codeine Phosphate (Robitussin Ac Liquid Cup) 5 ml TID PO Last administered on 04/18/19at 08:54; Admin Dose 5 ML; Start 04/17/19 at 09:00 Bisacodyl (Dulcolax Supp) 10 mg DAILY PRN [place] CONSTIPATION Last administered on 04/17/19at 10:11; Admin Dose 10 MG; Start 04/17/19 at 10:00 Lubiprostone (Amitiza) 24 mcg BID PO Last administered on 04/18/19at 08:44; Admin Dose 24 MCG; Start 04/17/19 at 12:00 Heparin Sodium (Porcine) (Heparin (1000 Units/ml)) 4,000 unit AFTER DIALYSIS CATHETER ; Start 04/17/19 at 12:00 Vancomycin HCl (Vanco Iv Per Pharmacy) VANCOMYCIN PER PHARMACY PER PROTOCOL XX ; Start 04/17/19 at 16:00 Meropenem/Sodium Chloride 50 ml @ 100 mls/hr Q12 IVPB Last administered on 04/18/19at 12:15; Admin Dose 100 MLS/HR; Start 04/17/19 at 21:00 Tramadol HCl (Ultram) 50 mg Q6H PRN PO MODERATE PAIN LEVEL 4-6 Last administered on 04/18/19at 10:56; Admin Dose 50 MG; Start 04/18/19 at 11:00 Hydromorphone HCl (Dilaudid) 4 mg Q6H PRN PO PAIN 7-10/10; Start 04/18/19 at 11:30 Povidone Iodine (Povidone-Iodine) 1 applic DAILY TOP ; Start 04/18/19 at 13:00 Pantoprazole (Protonix Tab) 40 mg BID@0600,1800 PO ; Start 04/18/19 at 18:00 Miscellaneous Information (*Rx Drug Level Order Reminder*) RANDOM VANCO W/ AM LABS... 0500 ONCE XX ; Start 04/19/19 at 05:00; Stop 04/19/19 at 05:01 MONAE SCHULER DPM April 18, 2019 13:19
[2019-04-18] MEDS: POVIDONE IODINE 10% 28.4 GM OINT TOP SCH (13:46)
--- NOTE | 2019-04-18 14:49 | CONS ---
Assessment/Plan Assessment/Plan Hospital Course (Demo Recall) Patient has been hypotensive unable to complete hemodialysis she is awake looks comfortable in no distress no fevers overnight no labs this morning Antimicrobials: Meropenem vancomycin Indwelling: Right chest permacath. Microbiology: Blood cultures negative Allergy: Amoxicillin Physical examination: This is a wasted obese well-developed fragile elderly woman who is awake in no distress. Head atraumatic normocephalic. Neck is supple. Chest rise symmetrical breath sounds diminished bases. Heart: S1-S2. Abdomen soft bowel sounds present. Extremities with bilateral lower extremities gangrene Assessment: 1. Clinical sepsis with tachycardia, hypotension and leukocytosis 2. Bilateral lower extremities gangrene 3. End-stage renal disease 4. Peripheral arterial disease, status post right posterior tibial artery angioplasty 03/01/19 5. Diabetes 6. Failure to thrive Plan: Check blood cultures, continue antibiotics, await for podiatry evaluation, urology recommendations noted Consultation Date/Type/Reason Admit Date/Time April 17, 2019 at 00:03 Initial Consult Date 04/17/19 Type of Consult id Requesting Provider: ALONZO KNOWLES MD Date/Time of Note DATE: 04/18/19 TIME: 14:45 Exam/Review of Systems Exam Vitals Vital Signs Date Temp Pulse Resp B/P (MAP) Pulse Ox O2 O2 Flow FiO2 Time Delivery Rate 04/18/19 116 12:01 04/18/19 91/93 (92) 11:56 04/18/19 2.0 08:27 04/18/19 18 98 Nasal 08:27 Cannula 04/18/19 97.8 07:38 04/17/19 28 20:29 Intake and Output 04/17/19 04/17/19 04/18/19 1515:00 23:00 07:00 IntakeIntake Total 300 ml 250 ml BalanceBalance 300 ml 250 ml Results Result Diagram: 04/17/19 0506 04/17/19 0506 Results 24hrs Laboratory Tests Test 04/17/19 16:09 04/17/19 17:24 04/17/19 21:10 04/18/19 08:01 Lactic Acid Level 1.4 Bedside Glucose 115 128 97 Medications Medication Current Medications Acetaminophen (Tylenol Tab) 650 mg Q4H PRN PO FOR FEVER; Start 04/17/19 at 05:00 Albuterol (Proventil 0.083% (Neb)) 2.5 mg Q4H RESP THERAPY PRN NEB WHEEZING AND SOB; Start 04/17/19 at 05:00 Apixaban (Eliquis) 2.5 mg DAILY PO Last administered on 04/18/19 08:44; Admin Dose 2.5 MG; Start 04/17/19 at 09:00 Atorvastatin Calcium (Lipitor) 20 mg QHS PO Last administered on 04/17/19 21:16; Admin Dose 20 MG; Start 04/17/19 at 21:00 Benzonatate (Tessalon) 100 mg Q6 PRN PO COUGH; Start 04/17/19 at 05:00 Bisacodyl (Dulcolax) 5 mg BID PO Last administered on 04/18/19 08:44; Admin Dose 5 MG; Start 04/17/19 at 09:00 Folic Acid (Folic Acid) 1 mg DAILY PO Last administered on 04/18/19 08:44; Admin Dose 1 MG; Start 04/17/19 at 09:00 Gabapentin (Neurontin) 300 mg TID PO Last administered on 04/18/19 08:44; Admin Dose 300 MG; Start 04/17/19 at 09:00 Albuterol/ Ipratropium (Duoneb) 3 ml Q4H RESP THERAPY INH Last administered on 04/18/19 08:27; Admin Dose 3 ML; Start 04/17/19 at 05:00 Multivit/Ca Carb/ B Cmplx/FA/Prenat (Suzie-Paula) 1 tab DAILY PO Last a dministered on 04/18/19 08:44; Admin Dose 1 TAB; Start 04/17/19 at 09:00 Ondansetron HCl (Zofran Tab) 4 mg Q6H PRN PO NAUSEA AND/OR VOMITING; Start 04/17/19 at 05:00 Polyethylene Glycol (Miralax) 17 gm DAILY PO Last administered on 04/18/19 08:48; Admin Dose 17 GM; Start 04/17/19 at 09:00 Sucralfate (Carafate) 1 gm AC MEALS AND BEDTIME PO Last administered on 04/18/19 08:02; Admin Dose 1 GM; Start 04/17/19 at 07:00 Morphine Sulfate (morphine) 2 mg Q4H PRN IV SEVERE PAIN LEVEL 7-10 Last a dministered on 04/17/19at 05:29; Admin Dose 2 MG; Start 04/17/19 at 05:00 Diagnostic Test (Pha) (Accu-Chek) 1 ea 02 XX ; Start 04/18/19 at 02:00 Insulin Aspart (Novolog Insulin Pen) NOVOLOG *MILD* ALGORITHM WITH MEALS BEDTIME SC ; Start 04/17/19 at 08:00 Miscellaneous Information (Pending [facility] Order For Wound Care) This patient davis... PRN PRN XX WOUND CARE; Start 04/17/19 at 05:00 Miscellaneous Information 1 ea NOTE XX ; Start 04/17/19 at 05:30 Glucose (Glutose) 15 gm Q15M PRN PO DECREASED GLUCOSE; Start 04/17/19 at 05:30 Glucose (Glutose) 22.5 gm Q15M PRN PO DECREASED GLUCOSE; Start 04/17/19 at 05:30 Dextrose (D50w Syringe) 25 ml Q15M PRN IV DECREASED GLUCOSE; Start 04/17/19 at 05:30 Dextrose (D50w Syringe) 50 ml Q15M PRN IV DECREASED GLUCOSE; Start 04/17/19 at 05:30 Glucagon (Glucagen) 1 mg Q15M PRN IM DECREASED GLUCOSE; Start 04/17/19 at 05:30 Glucose (Glutose) 15 gm Q15M PRN BUCCAL DECREASED GLUCOSE; Start 04/17/19 at 05:30 Guaifenesin/ Codeine Phosphate (Robitussin Ac Liquid Cup) 5 ml TID PO Last administered on 04/18/19at 08:54; Admin Dose 5 ML; Start 04/17/19 at 09:00 Bisacodyl (Dulcolax Supp) 10 mg DAILY PRN [place] CONSTIPATION Last administered on 04/17/19at 10:11; Admin Dose 10 MG; Start 04/17/19 at 10:00 Lubiprostone (Amitiza) 24 mcg BID PO Last administered on 04/18/19at 08:44; Admin Dose 24 MCG; Start 04/17/19 at 12:00 Heparin Sodium (Porcine) (Heparin (1000 Units/ml)) 4,000 unit AFTER DIALYSIS CATHETER ; Start 04/17/19 at 12:00 Vancomycin HCl (Vanco Iv Per Pharmacy) VANCOMYCIN PER PHARMACY PER PROTOCOL XX ; Start 04/17/19 at 16:00 Meropenem/Sodium Chloride 50 ml @ 100 mls/hr Q12 IVPB Last administered on 04/18/19at 12:15; Admin Dose 100 MLS/HR; Start 04/17/19 at 21:00 Tramadol HCl (Ultram) 50 mg Q6H PRN PO MODERATE PAIN LEVEL 4-6 Last administered on 04/18/19at 10:56; Admin Dose 50 MG; Start 04/18/19 at 11:00 Hydromorphone HCl (Dilaudid) 4 mg Q6H PRN PO PAIN 7-10/10; Start 04/18/19 at 11:30 Povidone Iodine (Povidone-Iodine) 1 applic DAILY TOP Last administered on 04/18/19at 13:46; Admin Dose 1 APPLIC; Start 04/18/19 at 13:00 Pantoprazole (Protonix Tab) 40 mg BID@0600,1800 PO ; Start 04/18/19 at 18:00 Miscellaneous Information (*Rx Drug Level Order Reminder*) [facility]... 0500 ONCE XX ; Start 04/19/19 at 05:00; Stop 04/19/19 at 05:01 Albumin Human 100 ml @ 100 mls/hr WITH DIALYSIS PRN IV SBP <90 DURING DIALYSIS; Start 04/18/19 at 15:00; Status JOHANA HALE NP April 18, 2019 14:48
[2019-04-18] MEDS ORDERED: PANTOPRAZOLE 40 MG INJ IV SCH (18:00)
[2019-04-18] MEDS: PANTOPRAZOLE (EC) 40 MG TAB PO SCH (18:54)
[2019-04-18] MEDS: ALBUMIN HUMAN 25% 100 ML IV PRN (18:56)
--- NOTE | 2019-04-18 20:05 | CONS ---
DATE OF ADMISSION: 04/17/2019 DATE OF CONSULTATION: TYPE OF CONSULTATION: Gastroenterology. HISTORY OF PRESENT ILLNESS: The patient is a 63-year-old female with a history of end-stage renal di sease, diabetes mellitus, hypertension, hyperlipidemia, peripheral vascular disease, chronic atrial f ibrillation, was sent from senior living due to the abdominal pain confined to the epigastric area for 1 week. Pain is associated with nausea and chronic cough and also heartburn. She had some GI bleed ing. The patient also has a lower extremity wound which is being followed by Dr. Schultz. The patient is chronically constipated. She sees some blood in the stool. No chest pain. No shortn ess of breath. No or GOLD LAYER problem. She was evaluated in the ER where CAT scan was done. 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 PAST MEDICAL HISTORY: End-stage renal disease, hypertension, diabetes mellitus, chronic atrial fibri llation, cholecystectomy, anxiety, depression, gastroparesis, peripheral vascular disease. ALLERGIES: AMOXICILLIN AND CELEXA. SOCIAL HISTORY: No history of smoking or IV drug abuse. MEDICATIONS: Reviewed. She is also on Eliquis besides pantoprazole and sucralfate. PAST SURGICAL HISTORY: As described. REVIEW OF SYSTEMS: Negative. PHYSICAL EXAMINATION: GENERAL: Alert, awake, now on dialysis. VITAL SIGNS: Stable. HEENT: Unremarkable. NECK: Supple, no thyromegaly, no lymphadenopathy. CARDIOVASCULAR: No murmur, gallop or click. LUNGS: Clear. ABDOMEN: Soft. Moderate to severe tenderness in the epigastric area. Bowel sounds good. No mass f elt per abdomen. No peritonitis. EXTREMITIES: No edema. CENTRAL NERVOUS SYSTEM: Grossly within normal limits. Hematocrit is 36, creatinine elevated alkalin e phosphatase is 170 to 200. IMPRESSION: 1. Abdominal pain, rule out peptic ulcer disease, rule out gastritis. Rule out also bile duct stone , given the history of elevated alkaline phosphatase. 2. End-stage renal disease on dialysis. 3. Peripheral vascular disease. 4. Chronic atrial fibrillation. 5. Status post cholecystectomy. 6. Diabetes. 7. Hypertension. 8. Depression. 9. Lower extremity wound. PLAN: At this point, is to continue present care. We will stop Eliquis. The patient will need MRCP to rule out bile duct stone and will stop Sucralfate, which is known to produce constipation. Mervat nue with the PPI and if MRCP is negative, we will proceed with EGD. Dictated By: IVANA LEVY/ABHIJIT Conf#: [id number] DID#: [id number] CC: ALONZO KNOWLES MD; JACOB GONZALEZ;*EndCC*
[2019-04-18] MEDS: HEPARIN 1000 UNITS/ML 10 ML INJ CATHETER SCH (21:31)
[2019-04-18] MEDS: ATORVASTATIN 20 MG TAB PO SCH (21:43)
[2019-04-18] MEDS: DAKINS 0.0125%(1/40) 473 ML SOLUTION TP SCH (21:45)
[2019-04-18] MEDS: morphine 2 MG INJ IV PRN (22:31)
[2019-04-19] MEDS: ALBUTEROL/IPRATROPIUM (NEB) 3 ML AMP INH SCH ×6 (00:06→20:04)
[2019-04-19] MEDS: ACCU-CHEK XX SCH (02:00)
[2019-04-19 02:24] VITALS: BP_SYST 102; BP_SYST 95; BP_DIAS 66; PULSE 102; PULSE 72; RESP 18
[2019-04-19] MEDS: ZOLPIDEM 5 MG TAB PO PRN (02:40)
[2019-04-19] MEDS: BISACODYL 10 MG SUPP PR PRN (05:04)
[2019-04-19] MEDS: SUCRALFATE 1 GM TAB PO SCH ×2 (05:38→06:31)
[2019-04-19] MEDS: PANTOPRAZOLE (EC) 40 MG TAB PO SCH ×3 (05:38→18:05)
[2019-04-19] MEDS: INSULIN ASPART [NOVOLOG] 3 ML PEN SC SCH ×4 (08:00→21:00)
[2019-04-19] MEDS: GUAIFENESIN/CODEINE 5ML CUP PO SCH ×3 (08:13→21:22)
[2019-04-19] MEDS: FOLIC ACID 1 MG TAB PO SCH (08:13)
[2019-04-19] MEDS: GABAPENTIN 300 MG CAP PO SCH ×3 (08:13→21:21)
[2019-04-19] MEDS: LUBIPROSTONE 24 MCG CAP PO SCH ×2 (08:14→21:22)
[2019-04-19] MEDS: MULTIVIT/CA CARB/B CMPLX/FA TAB PO SCH (08:14)
[2019-04-19] MEDS: BISACODYL (EC) 5 MG TAB PO SCH ×2 (08:14→21:21)
[2019-04-19] MEDS: POLYETHYLENE GLYCOL 17 GM PACKET PO SCH (08:15)
[2019-04-19] MEDS: MEROPENEM 500MG/50 ML (PMX) 50 ML IVPB SCH ×2 (08:18→21:22)
[2019-04-19] MEDS: POVIDONE IODINE 10% 28.4 GM OINT TOP SCH (08:19)
[2019-04-19] MEDS: BALSAM PERU/CASTOR OIL 60 GM TUBE TOP SCH ×2 (08:20→21:30)
[2019-04-19] MEDS: DAKINS 0.0125%(1/40) 473 ML SOLUTION TP SCH ×3 (08:20→21:30)
[2019-04-19 08:33] VITALS: BP 94/53; PULSE 102; RESP 18
[2019-04-19] MEDS: traMADol 50 MG TAB PO PRN (09:37)
--- NOTE | 2019-04-19 11:49 | PN ---
Date/Time of Note Date/Time of Note DATE: 04/19/19 TIME: 11:49 Assessment/Plan VTE Prophylaxis Risk score (from Ns)>0 risk: 8 SCD applied (from Ns): No Lines/Catheters IV Catheter Type (from [facility]): Peripheral IV Assessment/Plan Result Diagram: 04/19/1943904/19/19439 Results 24hrs Laboratory Tests Test 04/18/19 18:52 04/18/19 20:15 04/19/19 04:40 04/19/19 08:06 Bedside Glucose 95 87 77 White Blood Count 9.8 Red Blood Count 3.71 L Hemoglobin 11.4 L Hematocrit 34.3 L Mean Corpuscular 92.5 Volume Mean Corpuscular 30.7 Hemoglobin Mean Corpuscular 33.2 Hemoglobin Concent Red Cell 18.3 H Distribution Width Platelet Count 151 Mean Platelet Volume 10.8 H Immature 0.800 H Granulocytes % Neutrophils % 82.4 H Lymphocytes % 6.0 L Monocytes % 7.4 Eosinophils % 2.9 Basophils % 0.5 Nucleated Red Blood 0.0 Cells % Immature 0.080 H Granulocytes # Neutrophils # 8.0 H Lymphocytes # 0.6 L Monocytes # 0.7 Eosinophils # 0.3 Basophils # 0.1 Nucleated Red Blood 0.0 Cells # Sodium Level 136 Potassium Level 4.3 Chloride Level 99 Carbon Dioxide Level 24 Anion Gap 13 Blood Urea Nitrogen 23 H Creatinine 3.87 H Est Glomerular 12 L Filtrat Rate mL/min Glucose Level 72 # Calcium Level 7.9 L Phosphorus Level 3.5 Magnesium Level 2.0 Random Vancomycin 19.5 Level Test 04/19/19 08:29 04/19/19 08:51 04/19/19 09:33 Bedside Glucose 76 80 106 Exam/Review of Systems Exam Vitals Vital Signs Date Temp Pulse Resp B/P (MAP) Pulse Ox O2 O2 Flow FiO2 Time Delivery Rate 04/19/19 Nasal 2.0 09:00 Cannula 04/19/19 98.2 102 18 94/53 (67) 100 08:33 04/17/19 28 20:29 Intake and Output 04/18/19 04/18/19 04/19/19 1515:00 23:00 07:00 IntakeIntake Total 50 ml 240 ml OutputOutput Total 1800 ml BalanceBalance -1750 ml 240 ml Results Results 24hrs Laboratory Tests Test 04/18/19 18:52 04/18/19 20:15 04/19/19 04:40 04/19/19 08:06 Bedside Glucose 95 87 77 White Blood Count 9.8 Red Blood Count 3.71 L Hemoglobin 11.4 L Hematocrit 34.3 L Mean Corpuscular 92.5 Volume Mean Corpuscular 30.7 Hemoglobin Mean Corpuscular 33.2 Hemoglobin Concent Red Cell 18.3 H Distribution Width Platelet Count 151 Mean Platelet Volume 10.8 H Immature 0.800 H Granulocytes % Neutrophils % 82.4 H Lymphocytes % 6.0 L Monocytes % 7.4 Eosinophils % 2.9 Basophils % 0.5 Nucleated Red Blood 0.0 Cells % Immature 0.080 H Granulocytes # Neutrophils # 8.0 H Lymphocytes # 0.6 L Monocytes # 0.7 Eosinophils # 0.3 Basophils # 0.1 Nucleated Red Blood 0.0 Cells # Sodium Level 136 Potassium Level 4.3 Chloride Level 99 Carbon Dioxide Level 24 Anion Gap 13 Blood Urea Nitrogen 23 H Creatinine 3.87 H Est Glomerular 12 L Filtrat Rate mL/min Glucose Level 72 # Calcium Level 7.9 L Phosphorus Level 3.5 Magnesium Level 2.0 Random Vancomycin 19.5 Level Test 04/19/19 08:29 04/19/19 08:51 04/19/19 09:33 Bedside Glucose 76 80 106 Medications Medication Current Medications Acetaminophen (Tylenol Tab) 650 mg Q4H PRN PO FOR FEVER; Start 04/17/19 at 05:00 Albuterol (Proventil 0.083% (Neb)) 2.5 mg Q4H RESP THERAPY PRN NEB WHEEZING AND SOB; Start 04/17/19 at 05:00 Atorvastatin Calcium (Lipitor) 20 mg QHS PO Last administered on 04/18/19at 21:43; Admin Dose 20 MG; Start 04/17/19 at 21:00 Benzonatate (Tessalon) 100 mg Q6 PRN PO COUGH; Start 04/17/19 at 05:00 Bisacodyl (Dulcolax) 5 mg BID PO Last administered on 04/19/19at 08:14; Admin Dose 5 MG; Start 04/17/19 at 09:00 Folic Acid (Folic Acid) 1 mg DAILY PO Last administered on 04/19/19at 08:13; Admin Dose 1 MG; Start 04/17/19 at 09:00 Gabapentin (Neurontin) 300 mg TID PO Last administered on 04/19/19at 08:13; Admin Dose 300 MG; Start 04/17/19 at 09:00 Albuterol/ Ipratropium (Duoneb) 3 ml Q4H RESP THERAPY INH Last administered on 04/19/19at 08:50; Admin Dose 3 ML; Start 04/17/19 at 05:00 Multivit/Ca Carb/ B Cmplx/FA/Prenat (Suzie-Paula) 1 tab DAILY PO Last administered on 04/19/19at 08:14; Admin Dose 1 TAB; Start 04/17/19 at 09:00 Ondansetron HCl (Zofran Tab) 4 mg Q6H PRN PO NAUSEA AND/OR VOMITING; Start 04/17/19 at 05:00 Polyethylene Glycol (Miralax) 17 gm DAILY PO Last administered on 04/19/19at 08:15; Admin Dose 17 GM; Start 04/17/19 at 09:00 Morphine Sulfate (morphine) 2 mg Q4H PRN IV SEVERE PAIN LEVEL 7-10 Last administered on 04/18/19at 22:31; Admin Dose 2 MG; Start 04/17/19 at 05:00 Diagnostic Test (Pha) (Accu-Chek) 1 ea 02 XX ; Start 04/18/19 at 02:00 Insulin Aspart (Novolog Insulin Pen) NOVOLOG *MILD* ALGORITHM WITH MEALS BEDTIME SC ; Start 04/17/19 at 08:00 Miscellaneous Information (Pending [facility] Order For Wound Care) This patient davis... PRN PRN XX WOUND CARE; Start 04/17/19 at 05:00 Miscellaneous Information 1 ea NOTE XX ; Start 04/17/19 at 05:30 Glucose (Glutose) 15 gm Q15M PRN PO DECREASED GLUCOSE; Start 04/17/19 at 05:30 Glucose (Glutose) 22.5 gm Q15M PRN PO DECREASED GLUCOSE; Start 04/17/19 at 05: 30 Dextrose (D50w Syringe) 25 ml Q15M PRN IV DECREASED GLUCOSE; Start 04/17/19 at 05:30 Dextrose (D50w Syringe) 50 ml Q15M PRN IV DECREASED GLUCOSE; Start 04/17/19 at 05:30 Glucagon (Glucagen) 1 mg Q15M PRN IM DECREASED GLUCOSE; Start 04/17/19 at 05:30 Glucose (Glutose) 15 gm Q15M PRN BUCCAL DECREASED GLUCOSE; Start 04/17/19 at 05:30 Guaifenesin/ Codeine Phosphate (Robitussin Ac Liquid Cup) 5 ml TID PO Last administered on 04/19/19 08:13; Admin Dose 5 ML; Start 04/17/19 at 09:00 Bisacodyl (Dulcolax Supp) [address] CONSTIPATION Last administered on 04/19/19 05:04; Admin Dose 10 MG; Start 04/17/19 at 10:00 Lubiprostone (Amitiza) 24 mcg BID PO Last administered on 04/19/19 08:14; Admin Dose 24 MCG; Start 04/17/19 at 12:00 Heparin Sodium (Porcine) (Heparin (1000 Units/ml)) 4,000 unit AFTER DIALYSIS CATHETER Last administered on 04/18/19at 21:31; Admin Dose 3,700 UNIT; Start 04/17/19 at 12:00 Vancomycin HCl (Vanco Iv Per Pharmacy) VANCOMYCIN PER PHARMACY PER PROTOCOL XX ; Start 04/17/19 at 16:00 Meropenem/Sodium Chloride 50 ml @ 100 mls/hr Q12 IVPB Last administered on 04/19/19 08:18; Admin Dose 100 MLS/HR; Start 04/17/19 at 21:00 Tramadol HCl (Ultram) 50 mg Q6H PRN PO MODERATE PAIN LEVEL 4-6 Last administered on 04/19/19 09:37; Admin Dose 50 MG; Start 04/18/19 at 11:00 Hydromorphone HCl (Dilaudid) 4 mg Q6H PRN PO PAIN 7-10/10; Start 04/18/19 at 11:30 Povidone Iodine (Povidone-Iodine) 1 applic DAILY TOP Last administered on 04/19/19 08:19; Admin Dose 1 APPLIC; Start 04/18/19 at 13:00 Pantoprazole (Protonix Tab) 40 mg BID@0600,1800 PO Last administered on 04/18/19at 18:54; Admin Dose 40 MG; Start 04/18/19 at 18:00 Albumin Human 100 ml @ 100 mls/hr WITH DIALYSIS PRN IV SBP <90 DURING DIALYSIS Last administered on 04/18/19 18:56; Admin Dose 100 MLS/HR; Start 04/18/19 at 15:00 Sodium Hypochlorite (Dakins Diluted ()) 1 applic TID TP Last administered on 04/19/19at 08:20; Admin Dose 1 APPLIC; Start 04/18/19 at 21:00 Zolpidem Tartrate (Ambien) 5 mg HS PRN PO INSOMNIA Last administered on 04/19/19at 02:40; Admin Dose 5 MG; Start 04/19/19 at 03:00 JACOB GONZALEZ MD April 19, 2019 11:49
--- NOTE | 2019-04-19 13:13 | PN ---
Date/Time of Note Date/Time of Note DATE: 04/19/19 TIME: 13:09 Assessment/Plan VTE Prophylaxis Risk score (from Nsg)>0 risk: 8 SCD applied (from Ns): No SCD contraindicated: low risk/ambulating Pharmacological prophylaxis: NA/contraindicated Pharm contraindication: low risk/ambulating Lines/Catheters IV Catheter Type (from Nrs): Peripheral IV Assessment/Plan Assessment/Plan This is a 63-year-old female presenting with: 1. Abdominal pain with some nausea. CT of the abdomen and pelvis showed severe left hydronephrosis, status post cholecystectomy. LFTs within normal limit except mildly elevated alkaline phosphatase. Lipase is 22. Likely secondary to constipation vs gastritis vs gastroparesis abdominal pain is still persistent. Versus choledocholithiasis 2. Severe left hydronephrosis secondary to UPJ junction, no urinary stone. probabaly chronic , no intervention per urology 3. Bilateral lower extremity ulcers with gangrene, followed by Dr. Schultz. 4. End-stage renal disease, on hemodialysis. 5. Hypotension, on dialysis. could be secondary to infectied ulcers, hold bp meds 6. Diabetes. 7. Hypertension. 8. Peripheral vascular disease. 9. History of gastritis. 10. History of gastroparesis. 11. History of atrial fibrillation. 12 anasarca Plan - iv vanco/meropenam per ID - 2nd opinion with Dr ramirez for ulcers> will be going for debridement on Wednesday spoke to Dr. Persaud check - iv albumin needed with HD support -Full liquid diet MRCP per GI. Hold Eliquis will also likely do EGD tomorrow, hold sucralfate due to constipation -We will try to do HD tomorrow with volume removal since patient is having edema, give midodrine/before - pain control with morphine./tramadaol - podiatry consult - gi/dvt prophylaxsis Result Diagram: 04/19/19 0440 04/19/19 044 Results 24hrs Laboratory Tests Test 04/18/19 18:52 04/18/19 20:15 04/19/19 04:40 04/19/19 08:06 Bedside Glucose 95 87 77 White Blood Count 9.8 Red Blood Count 3.71 L Hemoglobin 11.4 L Hematocrit 34.3 L Mean Corpuscular 92.5 Volume Mean Corpuscular 30.7 Hemoglobin Mean Corpuscular 33.2 Hemoglobin Concent Red Cell 18.3 H Distribution Width Platelet Count 151 Mean Platelet Volume 10.8 H Immature 0.800 H Granulocytes % Neutrophils % 82.4 H Lymphocytes % 6.0 L Monocytes % 7.4 Eosinophils % 2.9 Basophils % 0.5 Nucleated Red Blood 0.0 Cells % Immature 0.080 H Granulocytes # Neutrophils # 8.0 H Lymphocytes # 0.6 L Monocytes # 0.7 Eosinophils # 0.3 Basophils # 0.1 Nucleated Red Blood 0.0 Cells # Sodium Level 136 Potassium Level 4.3 Chloride Level 99 Carbon Dioxide Level 24 Anion Gap 13 Blood Urea Nitrogen 23 H Creatinine 3.87 H Est Glomerular 12 L Filtrat Rate mL/min Glucose Level 72 # Calcium Level 7.9 L Phosphorus Level 3.5 Magnesium Level 2.0 Random Vancomycin 19.5 Level Test 04/19/19 08:29 04/19/19 08:51 04/19/19 09:33 04/19/19 12:35 Bedside Glucose 76 80 106 116 Subjective 24 Hr Interval Summary Free Text/Dictation Patient could not sleep last night Pain in the abdomen pain in legs Exam/Review of Systems Exam Vitals Vital Signs Date Temp Pulse Resp B/P (MAP) Pulse Ox O2 O2 Flow FiO2 Time Delivery Rate 04/19/19 Nasal 2.0 09:00 Cannula 04/19/19 98.2 102 18 94/53 (67) 100 08:33 04/17/19 28 20:29 Intake and Output 04/18/19 04/18/19 04/19/19 1515:00 23:00 07:00 IntakeIntake Total 50 ml 240 ml OutputOutput Total 1800 ml BalanceBalance -1750 ml 240 ml Exam Exam GENERAL: The patient is awake, alert, oriented. NECK: Supple. No JVD. HEART: Regular rate and rhythm. LUNGS: Clear to auscultate bilaterally. ABDOMEN: Some tenderness present in the epigastric region. Positive bowel sounds. EXTREMITIES: .poor peripheal pulses Bilateral heels arterial ulcers with 100% black eschar.- Left toes and partial foot gangrene. Moderate serosanguineous drainage. Malodor. Results Results 24hrs Laboratory Tests Test 04/18/19 18:52 04/18/19 20:15 04/19/19 04:40 04/19/19 08:06 Bedside Glucose 95 87 77 White Blood Count 9.8 Red Blood Count 3.71 L Hemoglobin 11.4 L Hematocrit 34.3 L Mean Corpuscular 92.5 Volume Mean Corpuscular 30.7 Hemoglobin Mean Corpuscular 33.2 Hemoglobin Concent Red Cell 18.3 H Distribution Width Platelet Count 151 Mean Platelet Volume 10.8 H Immature 0.800 H Granulocytes % Neutrophils % 82.4 H Lymphocytes % 6.0 L Monocytes % 7.4 Eosinophils % 2.9 Basophils % 0.5 Nucleated Red Blood 0.0 Cells % Immature 0.080 H Granulocytes # Neutrophils # 8.0 H Lymphocytes # 0.6 L Monocytes # 0.7 Eosinophils # 0.3 Basophils # 0.1 Nucleated Red Blood 0.0 Cells # Sodium Level 136 Potassium Level 4.3 Chloride Level 99 Carbon Dioxide Level 24 Anion Gap 13 Blood Urea Nitrogen 23 H Creatinine 3.87 H Est Glomerular 12 L Filtrat Rate mL/min Glucose Level 72 # Calcium Level 7.9 L Phosphorus Level 3.5 Magnesium Level 2.0 Random Vancomycin 19.5 Level Test 04/19/19 08:29 04/19/19 08:51 04/19/19 09:33 04/19/19 12:35 Bedside Glucose 76 80 106 116 Medications Medication Current Medications Acetaminophen (Tylenol Tab) 650 mg Q4H PRN PO FOR FEVER; Start 04/17/19 at 05:00 Albuterol (Proventil 0.083% (Neb)) 2.5 mg Q4H RESP THERAPY PRN NEB WHEEZING AND SOB; Start 04/17/19 at 05:00 Atorvastatin Calcium (Lipitor) 20 mg QHS PO Last administered on 04/18/19at 21: 43; Admin Dose 20 MG; Start 04/17/19 at 21:00 Benzonatate (Tessalon) 100 mg Q6 PRN PO COUGH; Start 04/17/19 at 05:00 Bisacodyl (Dulcolax) 5 mg BID PO Last administered on 04/19/19at 08:14; Admin Dose 5 MG; Start 04/17/19 at 09:00 Folic Acid (Folic Acid) 1 mg DAILY PO Last administered on 04/19/19at 08:13; Admin Dose 1 MG; Start 04/17/19 at 09:00 Gabapentin (Neurontin) 300 mg TID PO Last administered on 04/19/19at 12:31; Admin Dose 300 MG; Start 04/17/19 at 09:00 Albuterol/ Ipratropium (Duoneb) 3 ml Q4H RESP THERAPY INH Last administered on 04/19/19 08:50; Admin Dose 3 ML; Start 04/17/19 at 05:00 Multivit/Ca Carb/ B Cmplx/FA/Prenat (Suzie-Paula) 1 tab DAILY PO Last administered on 04/19/19 08:14; Admin Dose 1 TAB; Start 04/17/19 at 09:00 Ondansetron HCl (Zofran Tab) 4 mg Q6H PRN PO NAUSEA AND/OR VOMITING; Start 04/17/19 at 05:00 Polyethylene Glycol (Miralax) 17 gm DAILY PO Last administered on 04/19/19 08:15; Admin Dose 17 GM; Start 04/17/19 at 09:00 Morphine Sulfate (morphine) 2 mg Q4H PRN IV SEVERE PAIN LEVEL 7-10 Last administered on 04/18/19 22:31; Admin Dose 2 MG; Start 04/17/19 at 05:00 Diagnostic Test (Pha) (Accu-Chek) 1 ea 02 XX ; Start 04/18/19 at 02:00 Insulin Aspart (Novolog Insulin Pen) NOVOLOG *MILD* ALGORITHM WITH MEALS BEDTIME SC ; Start 04/17/19 at 08:00 Miscellaneous Information (Pending [facility] Order For Wound Care) This patient davis... PRN PRN XX WOUND CARE; Start 04/17/19 at 05:00 Miscellaneous Information 1 ea NOTE XX ; Start 04/17/19 at 05:30 Glucose (Glutose) 15 gm Q15M PRN PO DECREASED GLUCOSE; Start 04/17/19 at 05:30 Glucose (Glutose) 22.5 gm Q15M PRN PO DECREASED GLUCOSE; Start 04/17/19 at 05:30 Dextrose (D50w Syringe) 25 ml Q15M PRN IV DECREASED GLUCOSE; Start 04/17/19 at 05:30 Dextrose (D50w Syringe) 50 ml Q15M PRN IV DECREASED GLUCOSE; Start 04/17/19 at 05:30 Glucagon (Glucagen) 1 mg Q15M PRN IM DECREASED GLUCOSE; Start 04/17/19 at 05:30 Glucose (Glutose) 15 gm Q15M PRN BUCCAL DECREASED GLUCOSE; Start 04/17/19 at 05:30 Guaifenesin/ Codeine Phosphate (Robitussin Ac Liquid Cup) 5 ml TID PO Last administered on 04/19/19 12:31; Admin Dose 5 ML; Start 04/17/19 at 09:00 Bisacodyl (Dulcolax Supp) 10 mg DAILY PRN [place] CONSTIPATION Last administered on 04/19/19 05:04; Admin Dose 10 MG; Start 04/17/19 at 10:00 Lubiprostone (Amitiza) 24 mcg BID PO Last administered on 04/19/19 08:14; Admin Dose 24 MCG; Start 04/17/19 at 12:00 Heparin Sodium (Porcine) (Heparin (1000 Units/ml)) 4,000 unit AFTER DIALYSIS CATHETER Last administered on 04/18/19 21:31; Admin Dose 3,700 UNIT; Start 04/17/19 at 12:00 Vancomycin HCl (Vanco Iv Per Pharmacy) VANCOMYCIN PER PHARMACY PER PROTOCOL XX ; Start 04/17/19 at 16:00 Meropenem/Sodium Chloride 50 ml @ 100 mls/hr Q12 IVPB Last administered on 04/19/19 08:18; Admin Dose 100 MLS/HR; Start 04/17/19 at 21:00 Tramadol HCl (Ultram) 50 mg Q6H PRN PO MODERATE PAIN LEVEL 4-6 Last administe red on 04/19/19 09:37; Admin Dose 50 MG; Start 04/18/19 at 11:00 Hydromorphone HCl (Dilaudid) 4 mg Q6H PRN PO PAIN 7-10/10; Start 04/18/19 at 11:30 Povidone Iodine (Povidone-Iodine) 1 applic DAILY TOP Last administered on 04/19/19 08:19; Admin Dose 1 APPLIC; Start 04/18/19 at 13:00 Pantoprazole (Protonix Tab) 40 mg BID@0600,1800 PO Last administered on 04/18/19 18:54; Admin Dose 40 MG; Start 04/18/19 at 18:00 Albumin Human 100 ml @ 100 mls/hr WITH DIALYSIS PRN IV SBP <90 DURING DIALYSIS Last administered on 04/18/19 18:56; Admin Dose 100 MLS/HR; Start 04/18/19 at 15:00 Sodium Hypochlorite (Dakins Diluted ()) 1 applic TID TP Last administered on 04/19/19at 08:20; Admin Dose 1 APPLIC; Start 04/18/19 at 21:00 Zolpidem Tartrate (Ambien) 5 mg HS PRN PO INSOMNIA Last administered on 04/19/19at 02:40; Admin Dose 5 MG; Start 04/19/19 at 03:00 JACOB GONZALEZ MD April 19, 2019 13:13
[2019-04-19 14:06] VITALS: BP 95/53; PULSE 124; RESP 18
--- NOTE | 2019-04-19 15:36 | CONS ---
Assessment/Plan Assessment/Plan Hospital Course (Demo Recall) No events overnight no fevers patient looks comfortable WBC today 9.8 neutrophils 82.4 Microbiology: Wound cultures growing gram-negative rods Antimicrobials: Meropenem vancomycin Indwelling: Right chest permacath. Microbiology: Blood cultures negative Allergy: Amoxicillin Physical examination: This is a wasted obese well-developed fragile elderly woman who is awake in no distress. Head atraumatic normocephalic. Neck is supple. Chest rise symmetrical breath sounds diminished bases. Heart: S1-S2. Abdomen soft bowel sounds present. Extremities with bilateral lower ex tremities gangrene Assessment: 1. Clinical sepsis with tachycardia, hypotension and leukocytosis 2. Bilateral lower extremities gangrene 3. End-stage renal disease 4. Peripheral arterial disease, status post right posterior tibial artery angioplasty 03/01/19 5. Diabetes 6. Failure to thrive Plan: Stable, continue antibiotics, await for final wound cx, f/u podiatry and GI recommendations, pending MRCP Consultation Date/Type/Reason Admit Date/Time April 17, 2019 at 00:03 Initial Consult Date 04/17/19 Type of Consult id Requesting Provider: ALONZO KNOWLES MD Date/Time of Note DATE: 04/19/19 TIME: 15:35 Exam/Review of Systems Exam Vitals Vital Signs Date Temp Pulse Resp B/P (MAP) Pulse Ox O2 O2 Flow FiO2 Time Delivery Rate 04/19/19 98.4 124 18 95/53 (67) 92 14:06 04/19/19 Nasal 2.0 09:00 Cannula 04/17/19 28 20:29 Intake and Output 04/18/19 04/18/19 04/19/19 1414:59 22:59 06:59 IntakeIntake Total 50 ml 240 ml OutputOutput Total 1800 ml BalanceBalance -1750 ml 240 ml Results Result Diagram: 04/19/19 0440 04/19/19 0440 Results 24hrs Laboratory Tests Test 04/18/19 18:52 04/18/19 20:15 04/19/19 04:40 04/19/19 08:06 Bedside Glucose 95 87 77 White Blood Count 9.8 Red Blood Count 3.71 L Hemoglobin 11.4 L Hematocrit 34.3 L Mean Corpuscular 92.5 Volume Mean Corpuscular 30.7 Hemoglobin Mean Corpuscular 33.2 Hemoglobin Concent Red Cell 18.3 H Distribution Width Platelet Count 151 Mean Platelet Volume 10.8 H Immature 0.800 H Granulocytes % Neutrophils % 82.4 H Lymphocytes % 6.0 L Monocytes % 7.4 Eosinophils % 2.9 Basophils % 0.5 Nucleated Red Blood 0.0 Cells % Immature 0.080 H Granulocytes # Neutrophils # 8.0 H Lymphocytes # 0.6 L Monocytes # 0.7 Eosinophils # 0.3 Basophils # 0.1 Nucleated Red Blood 0.0 Cells # Sodium Level 136 Potassium Level 4.3 Chloride Level 99 Carbon Dioxide Level 24 Anion Gap 13 Blood Urea Nitrogen 23 H Creatinine 3.87 H Est Glomerular 12 L Filtrat Rate mL/min Glucose Level 72 # Calcium Level 7.9 L Phosphorus Level 3.5 Magnesium Level 2.0 Random Vancomycin 19.5 Level Test 04/19/19 08:29 04/19/19 08:51 04/19/19 09:33 04/19/19 12:35 Bedside Glucose 76 80 106 116 Test 04/19/19 13:09 Lactic Acid Level 1.7 Medications Medication Current Medications Acetaminophen (Tylenol Tab) 650 mg Q4H PRN PO FOR FEVER; Start 04/17/19 at 05:00 Albuterol (Proventil 0.083% (Neb)) 2.5 mg Q4H RESP THERAPY PRN NEB WHEEZING AND SOB; Start 04/17/19 at 05:00 Atorvastatin Calcium (Lipitor) 20 mg QHS PO Last administered on 04/18/19at 21:43; Admin Dose 20 MG; Start 04/17/19 at 21:00 Benzonatate (Tessalon) 100 mg Q6 PRN PO COUGH; Start 04/17/19 at 05:00 Bisacodyl (Dulcolax) 5 mg BID PO Last administered on 04/19/19at 08:14; Admin Dose 5 MG; Start 04/17/19 at 09:00 Folic Acid (Folic Acid) 1 mg DAILY PO Last administered on 04/19/19at 08:13; Admin Dose 1 MG; Start 04/17/19 at 09:00 Gabapentin (Neurontin) 300 mg TID PO Last administered on 04/19/19at 12:31; Admin Dose 300 MG; Start 04/17/19 at 09:00 Albuterol/ Ipratropium (Duoneb) 3 ml Q4H RESP THERAPY INH Last administered on 04/19/19at 08:50; Admin Dose 3 ML; Start 04/17/19 at 05:00 Multivit/Ca Carb/ B Cmplx/FA/Prenat (Suzie-Paula) 1 tab DAILY PO Last administered on 04/19/19at 08:14; Admin Dose 1 TAB; Start 04/17/19 at 09:00 Ondansetron HCl (Zofran Tab) 4 mg Q6H PRN PO NAUSEA AND/OR VOMITING; Start 04/17/19 at 05:00 Polyethylene Glycol (Miralax) 17 gm DAILY PO Last administered on 04/19/19at 08:15; Admin Dose 17 GM; Start 04/17/19 at 09:00 Morphine Sulfate (morphine) 2 mg Q4H PRN IV SEVERE PAIN LEVEL 7-10 Last administered on 04/18/19at 22:31; Admin Dose 2 MG; Start 04/17/19 at 05:00 Diagnostic Test (Pha) (Accu-Chek) 1 ea 02 XX ; Start 04/18/19 at 02:00 Insulin Aspart (Novolog Insulin Pen) NOVOLOG *MILD* ALGORITHM WITH MEALS BEDTIME SC ; Start 04/17/19 at 08:00 Miscellaneous Information (Pending [facility] Order For Wound Care) This patient davis... PRN PRN XX WOUND CARE; Start 04/17/19 at 05:00 Miscellaneous Information 1 ea NOTE XX ; Start 04/17/19 at 05:30 Glucose (Glutose) 15 gm Q15M PRN PO DECREASED GLUCOSE; Start 04/17/19 at 05:30 Glucose (Glutose) 22.5 gm Q15M PRN PO DECREASED GLUCOSE; Start 04/17/19 at 05:30 Dextrose (D50w Syringe) 25 ml Q15M PRN IV DECREASED GLUCOSE; Start 04/17/19 at 05:30 Dextrose (D50w Syringe) 50 ml Q15M PRN IV DECREASED GLUCOSE; Start 04/17/19 at 05:30 Glucagon (Glucagen) 1 mg Q15M PRN IM DECREASED GLUCOSE; Start 04/17/19 at 05:30 Glucose (Glutose) 15 gm Q15M PRN BUCCAL DECREASED GLUCOSE; Start 04/17/19 at 05:30 Guaifenesin/ Codeine Phosphate (Robitussin Ac Liquid Cup) 5 ml TID PO Last administered on 04/19/19 12:31; Admin Dose 5 ML; Start 04/17/19 at 09:00 Bisacodyl (Dulcolax Supp) 10 mg DAILY PRN [place] CONSTIPATION Last administered on 04/19/19 05:04; Admin Dose 10 MG; Start 04/17/19 at 10:00 Lubiprostone (Amitiza) 24 mcg BID PO Last administered on 04/19/19 08:14; Admin Dose 24 MCG; Start 04/17/19 at 12:00 Heparin Sodium (Porcine) (Heparin (1000 Units/ml)) 4,000 unit AFTER DIALYSIS CATHETER Last administered on 04/18/19 21:31; Admin Dose 3,700 UNIT; Start 04/17/19 at 12:00 Vancomycin HCl (Vanco Iv Per Pharmacy) VANCOMYCIN PER PHARMACY PER PROTOCOL XX ; Start 04/17/19 at 16:00 Meropenem/Sodium Chloride 50 ml @ 100 mls/hr Q12 IVPB Last administered on 04/19/19 08:18; Admin Dose 100 MLS/HR; Start 04/17/19 at 21:00 Tramadol HCl (Ultram) 50 mg Q6H PRN PO MODERATE PAIN LEVEL 4-6 Last administered on 04/19/19 09:37; Admin Dose 50 MG; Start 04/18/19 at 11:00 Hydromorphone HCl (Dilaudid) 4 mg Q6H PRN PO PAIN 7-10/10; Start 04/18/19 at 11:30 Povidone Iodine (Povidone-Iodine) 1 applic DAILY TOP Last administered on 04/19/19 08:19; Admin Dose 1 APPLIC; Start 04/18/19 at 13:00 Pantoprazole (Protonix Tab) 40 mg BID@0600,1800 PO Last administered on 04/18/19 18:54; Admin Dose 40 MG; Start 04/18/19 at 18:00 Albumin Human 100 ml @ 100 mls/hr WITH DIALYSIS PRN IV SBP <90 DURING DIALYSIS Last administered on 04/18/19 18:56; Admin Dose 100 MLS/HR; Start 04/18/19 at 15:00 Sodium Hypochlorite (Dakins Diluted ()) 1 applic TID TP Last administered on 5/22/19at 08:20; Admin Dose 1 APPLIC; Start 04/18/19 at 21:00 Zolpidem Tartrate (Ambien) 5 mg HS PRN PO INSOMNIA Last administered on at 02:40; Admin Dose 5 MG; Start 04/19/19 at 03:00 JOHANA KULKARNI NP April 19, 2019 15:36
--- NOTE | 2019-04-19 16:45 | CONS ---
Assessment/Plan Assessment/Plan Assessment/Plan (Daily) IMPRESSION: 1. Abdominal pain, rule out peptic ulcer disease, rule out gastritis. Rule out also bile duct stone, given the history of elevated alkaline phosphatase. 2. End-stage renal disease on dialysis. 3. Peripheral vascular disease. 4. Chronic atrial fibrillation. 5. Status post cholecystectomy. 6. Diabetes. 7. Hypertension. 8. Depression. 9. Lower extremity wound. Plan MRCP report is pending. If MRCP is nonconclusive then will proceed with EGD for her epigastric pain Consultation Date/Type/Reason Admit Date/Time April 17, 2019 at 00:03 Initial Consult Date 04/18/19 Requesting Provider: ALONZO KNOWLES MD Date/Time of Note DATE: 04/19/19 TIME: 16:45 24 HR Interval Summary Free Text/Dictation Ayush continues to have epigastric pain Exam/Review of Systems Exam Vitals Vital Signs Date Temp Pulse Resp B/P (MAP) Pulse Ox O2 O2 Flow FiO2 Time Delivery Rate 04/19/19 98.4 124 18 95/53 (67) 92 14:06 04/19/19 Nasal 2.0 09:00 Cannula 04/17/19 28 20:29 Intake and Output 04/18/19 04/18/19 04/19/19 1515:00 23:00 07:00 IntakeIntake Total 50 ml 240 ml OutputOutput Total 1800 ml BalanceBalance -1750 ml 240 ml Constitutional: alert, oriented, well developed Results Result Diagram: 04/19/19 0440 04/19/19 0440 Results 24hrs Laboratory Tests Test 04/18/19 18:52 04/18/19 20:15 04/19/19 04:40 04/19/19 08:06 Bedside Glucose 95 87 77 White Blood Count 9.8 Red Blood Count 3.71 L Hemoglobin 11.4 L Hematocrit 34.3 L Mean Corpuscular 92.5 Volume Mean Corpuscular 30.7 Hemoglobin Mean Corpuscular 33.2 Hemoglobin Concent Red Cell 18.3 H Distribution Width Platelet Count 151 Mean Platelet Volume 10.8 H Immature 0.800 H Granulocytes % Neutrophils % 82.4 H Lymphocytes % 6.0 L Monocytes % 7.4 Eosinophils % 2.9 Basophils % 0.5 Nucleated Red Blood 0.0 Cells % Immature 0.080 H Granulocytes # Neutrophils # 8.0 H Lymphocytes # 0.6 L Monocytes # 0.7 Eosinophils # 0.3 Basophils # 0.1 Nucleated Red Blood 0.0 Cells # Sodium Level 136 Potassium Level 4.3 Chloride Level 99 Carbon Dioxide Level 24 Anion Gap 13 Blood Urea Nitrogen 23 H Creatinine 3.87 H Est Glomerular 12 L Filtrat Rate mL/min Glucose Level 72 # Calcium Level 7.9 L Phosphorus Level 3.5 Magnesium Level 2.0 Random Vancomycin 19.5 Level Test 04/19/19 08:29 04/19/19 08:51 04/19/19 09:33 04/19/19 12:35 Bedside Glucose 76 80 106 116 Test 04/19/19 13:09 Lactic Acid Level 1.7 Medications Medication Current Medications Acetaminophen (Tylenol Tab) 650 mg Q4H PRN PO FOR FEVER; Start 04/17/19 at 05:00 Albuterol (Proventil 0.083% (Neb)) 2.5 mg Q4H RESP THERAPY PRN NEB WHEEZING AND SOB; Start 04/17/19 at 05:00 Atorvastatin Calcium (Lipitor) 20 mg QHS PO Last administered on 04/18/19 21:43; Admin Dose 20 MG; Start 04/17/19 at 21:00 Benzonatate (Tessalon) 100 mg Q6 PRN PO COUGH; Start 04/17/19 at 05:00 Bisacodyl (Dulcolax) 5 mg BID PO Last administered on 04/19/19 08:14; Admin Dose 5 MG; Start 04/17/19 at 09:00 Folic Acid (Folic Acid) 1 mg DAILY PO Last administered on 04/19/19 08:13; Admin Dose 1 MG; Start 04/17/19 at 09:00 Gabapentin (Neurontin) 300 mg TID PO Last administered on 04/19/19 12:31; Admin Dose 300 MG; Start 04/17/19 at 09:00 Albuterol/ Ipratropium (Duoneb) 3 ml Q4H RESP THERAPY INH Last administered on 04/19/19 08:50; Admin Dose 3 ML; Start 04/17/19 at 05:00 Multivit/Ca Carb/ B Cmplx/FA/Prenat (Suzie-Paula) 1 tab DAILY PO Last adm inistered on 04/19/19 08:14; Admin Dose 1 TAB; Start 04/17/19 at 09:00 Ondansetron HCl (Zofran Tab) 4 mg Q6H PRN PO NAUSEA AND/OR VOMITING; Start 04/17/19 at 05:00 Polyethylene Glycol (Miralax) 17 gm DAILY PO Last administered on 04/19/19at 08:15; Admin Dose 17 GM; Start 04/17/19 at 09:00 Morphine Sulfate (morphine) 2 mg Q4H PRN IV SEVERE PAIN LEVEL 7-10 Last administered on 04/18/19at 22:31; Admin Dose 2 MG; Start 04/17/19 at 05:00 Diagnostic Test (Pha) (Accu-Chek) 1 ea 02 XX ; Start 04/18/19 at 02:00 Insulin Aspart (Novolog Insulin Pen) NOVOLOG *MILD* ALGORITHM WITH MEALS BEDTIME SC ; Start 04/17/19 at 08:00 Miscellaneous Information ([facility]) This patient davis ... PRN PRN XX WOUND CARE; Start 04/17/19 at 05:00 Miscellaneous Information 1 ea NOTE XX ; Start 04/17/19 at 05:30 Glucose (Glutose) 15 gm Q15M PRN PO DECREASED GLUCOSE; Start 04/17/19 at 05:30 Glucose (Glutose) 22.5 gm Q15M PRN PO DECREASED GLUCOSE; Start 04/17/19 at 05:30 Dextrose (D50w Syringe) 25 ml Q15M PRN IV DECREASED GLUCOSE; Start 04/17/19 at 05:30 Dextrose (D50w Syringe) 50 ml Q15M PRN IV DECREASED GLUCOSE; Start 04/17/19 at 05:30 Glucagon (Glucagen) 1 mg Q15M PRN IM DECREASED GLUCOSE; Start 04/17/19 at 05:30 Glucose (Glutose) 15 gm Q15M PRN BUCCAL DECREASED GLUCOSE; Start 04/17/19 at 05:30 Guaifenesin/ Codeine Phosphate (Robitussin Ac Liquid Cup) 5 ml TID PO Last administered on 04/19/19at 12:31; Admin Dose 5 ML; Start 04/17/19 at 09:00 Bisacodyl (Dulcolax Supp) 10 mg DAILY PRN [place] CONSTIPATION Last administered on 04/19/19at 05:04; Admin Dose 10 MG; Start 04/17/19 at 10:00 Lubiprostone (Amitiza) 24 mcg BID PO Last administered on 04/19/19 08:14; Admin Dose 24 MCG; Start 04/17/19 at 12:00 Heparin Sodium (Porcine) (Heparin (1000 Units/ml)) 4,000 unit AFTER DIALYSIS CATHETER Last administered on 04/18/19 21:31; Admin Dose 3,700 UNIT; Start 04/17/19 at 12:00 Vancomycin HCl (Vanco Iv Per Pharmacy) VANCOMYCIN PER PHARMACY PER PROTOCOL XX ; Start 04/17/19 at 16:00 Meropenem/Sodium Chloride 50 ml @ 100 mls/hr Q12 IVPB Last administered on 04/19/19 08:18; Admin Dose 100 MLS/HR; Start 04/17/19 at 21:00 Tramadol HCl (Ultram) 50 mg Q6H PRN PO MODERATE PAIN LEVEL 4-6 Last administered on 04/19/19 09:37; Admin Dose 50 MG; Start 04/18/19 at 11:00 Hydromorphone HCl (Dilaudid) 4 mg Q6H PRN PO PAIN 7-10/10; Start 04/18/19 at 11:30 Povidone Iodine (Povidone-Iodine) 1 applic DAILY TOP Last administered on 04/19/19 08:19; Admin Dose 1 APPLIC; Start 04/18/19 at 13:00 Pantoprazole (Protonix Tab) 40 mg BID@0600,1800 PO Last administered on 04/18/19 18:54; Admin Dose 40 MG; Start 04/18/19 at 18:00 Albumin Human 100 ml @ 100 mls/hr WITH DIALYSIS PRN IV SBP <90 DURING DIALYSIS Last administered on 04/18/19 18:56; Admin Dose 100 MLS/HR; Start 04/18/19 at 15:00 Sodium Hypochlorite (Dakins Diluted (40)) 1 applic TID TP Last administered on 04/19/19 08:20; Admin Dose 1 APPLIC; Start 04/18/19 at 21:00 Zolpidem Tartrate (Ambien) 5 mg HS PRN PO INSOMNIA Last administered on 04/19/19 02:40; Admin Dose 5 MG; Start 04/19/19 at 03:00 IVANA MULTANI MD April 19, 2019 16:45
[2019-04-19] MEDS ORDERED: VANCOMYCIN 1 GM 250 ML IVPB SCH (18:00)
[2019-04-19] MEDS: METOCLOPRAMIDE 10 MG INJ IV SCH (18:05)
--- NOTE | 2019-04-19 19:19 | CONS ---
Assessment/Plan Assessment/Plan Assessment/Plan (Daily) Bilateral foot gangrene diabetic ulcers PAD DM2 with peripheral neuropathy Charcot neuroarthropathy CAD ESRD on HD Hx of a-fib Plan Discussed findings with patient and scheduled surgical intervention for bilateral foot debridement and possible L digit amputation of 3rd-5th for Wednesday. Patient was previously optimized from vascular standpoint with Dr. Lemus on 03/31/19 with patent anterior tibial arteries, and right posterior tibial artery angioplasty. Continue with IV abx per recommendations. X-rays and MRI ordered of bilateral feet. Remain non weight bearing to bilateral feet. Wound cultures showing gram negative rods. Consultation Date/Type/Reason Admit Date/Time April 17, 2019 at 00:03 Date/Time of Note DATE: 04/19/19 TIME: Hx of Present Illness 63 y/o F patient with hx of history of end-stage renal disease on hemodialysis, history of diabetes, hypertension, hyperlipidemia, peripheral vascular disease, chronic AFib, was sent in from [facility] due to severe abdominal pain. Patient presents to the floor with bilateral gangrenous wounds and foul smelling ulcers. ROS negative except for HPI Past Medical History Medical History: coronary artery disease, diabetes, high cholesterol, hyperten sg, renal disease Home Meds Reported Medications Sucralfate* (Carafate*) 1 Gm Tab, 1 GM PO AC MEALS AND BEDTIME, TAB 03/28/19 Ondansetron Hcl* (Zofran*) 4 Mg Tab, 4 MG PO Q6H PRN for NAUSEA AND/OR VOMITING, TAB 03/28/19 Hydrocodone/Acetaminophen ([place] 5-325 Tablet) 1 Each Tablet, 1 EACH PO Q6H, TAB 03/28/19 Hydromorphone Hcl* (Dilaudid*) 4 Mg Tablet, 4 MG PO Q6H PRN for PAIN 7-09/07, TAB 03/28/19 Bisacodyl* (Bisacodyl*) 5 Mg Tablet.dr, 5 MG PO BID, TAB 03/28/19 Insulin Aspart* (Novolog Insulin Pen*) 100 Unit/Ml Soln, 0 SC .SLIDING SCALE AC, EA IF BS 150-199=1 UNIT, 200-249=2 UNITS, 250-299=3 UNITS, 300-349=4 UNITS, OVER 349=5 UNITS CALL MD IF BS<60 OR >350 03/28/19 Pantoprazole* (Pantoprazole*) 40 Mg Tablet.dr, 40 MG PO AC BREAKFAST, TAB 03/28/19 Linaclotide (LINZESS) 145 Mcg Capsule, 145 MCG PO DAILY, #30 CAP 03/28/19 Tramadol Hcl* (Tramadol* ER) 100 Mg Tab.er.24h, 100 MG PO TID, #30 TAB 03/28/19 Guaifenesin/Codeine Phosphate (Codeine-Guaifen 10-100 mg/5 ml) 120 Ml Liquid, 5 ML PO TID 03/28/19 Sevelamer Carbonate* (Renvela*) 800 Mg Tablet, 0.8 GM PO WITH MEALS, TAB 03/28/19 Gabapentin* (Gabapentin*) 300 Mg Capsule, 300 MG PO TID, #90 CAP 03/28/19 Ipratropium-Albuterol (Ipratropium-Albuterol) 0.5-3 Mg/3 Ml Ampul.neb, 3 ML INHALATION Q4H, #30 VIAL 03/28/19 Loperamide Hcl* (Loperamide Hcl*) 2 Mg Cap, 2 MG PO Q4H PRN for NEEDED, CAP 03/28/19 Glucagon,Human Recombinant (Glucagon Emergency Kit) 1 Mg Kit, 1 MG IJ NEEDED, KIT 03/28/19 Acetaminophen* (Acetaminophen*) 650 Mg Tablet, 650 MG PO Q4H PRN for FOR FEVER, #30 TAB 03/28/19 Acetaminophen* (Acetaminophen*) 500 MG Extra Strength Tablet, 500 MG PO Q4H PRN for MILD PAIN LEVEL 1-3, TAB 03/28/19 Albuterol Sulfate* (Albuterol Sulfate* Neb) 0.083%-3 Ml Neb, 2.5 MG NEB Q4H PRN for WHEEZING AND SOB, #30 VIAL 03/28/19 Temazepam* (Restoril*) 30 Mg Capsule, 30 MG PO NEEDED PRN for INSOMNIA, CAP 03/28/19 Polyethylene Glycol* (Miralax*) 17 Gm Powd.pack, 17 GM PO DAILY, #30 PACKET 03/28/19 Benzonatate* (Benzonatate*) 100 Mg Capsule, 100 MG PO NEEDED PRN for COUGH, CAP 03/28/19 Lubiprostone* (Amitiza*) 24 Mcg Capsule, 24 MCG PO BID, #60 CAP 03/28/19 Atorvastatin Calcium* (Atorvastatin Calcium*) 20 Mg Tablet, 20 MG PO QHS, #30 TA B 03/28/19 Arginine/Ascorbate Sod/Paula AC (Arginaid Powder) 1 Each Powd.pack, 1 EACH PO DAILY 03/28/19 Multivit/Ca Carb/B Cmplx/Fa* (Szuie-Paula*) 1 Tab Tab, 1 TAB PO DAILY, TAB 03/28/19 Losartan Potassium* (Losartan Potassium*) 25 Mg Tablet, 25 MG PO DAILY, TAB HOLD IF SBP<110 OR HR<60 03/28/19 Furosemide* (Furosemide*) 20 Mg Tablet, 20 MG PO DAILY, #60 TAB 03/28/19 Folic Acid* (Folic Acid*) 1 Mg Tablet, 1 MG PO DAILY, TAB 03/28/19 Famotidine* (Famotidine*) 20 Mg Tablet, 20 MG PO DAILY, #30 TAB 03/28/19 Apixaban* (Eliquis*) 2.5 Mg Tablet, 2.5 MG PO DAILY, TAB 03/28/19 Medications Current Medications Acetaminophen (Tylenol Tab) 650 mg Q4H PRN PO FOR FEVER; Start 04/17/19 at 05:00 Albuterol (Proventil 0.083% (Neb)) 2.5 mg Q4H RESP THERAPY PRN NEB WHEEZING AND SOB; Start 04/17/19 at 05:00 Atorvastatin Calcium (Lipitor) 20 mg QHS PO Last administered on 04/18/19at 21:43; Admin Dose 20 MG; Start 04/17/19 at 21:00 Benzonatate (Tessalon) 100 mg Q6 PRN PO COUGH; Start 04/17/19 at 05:00 Bisacodyl (Dulcolax) 5 mg BID PO Last administered on 04/19/19at 08:14; Admin Dose 5 MG; Start 04/17/19 at 09:00 Folic Acid (Folic Acid) 1 mg DAILY PO Last administered on 04/19/19at 08:13; Admin Dose 1 MG; Start 04/17/19 at 09:00 Gabapentin (Neurontin) 300 mg TID PO Last administered on 04/19/19at 12:31; Admin Dose 300 MG; Start 04/17/19 at 09:00 Albuterol/ Ipratropium (Duoneb) 3 ml Q4H RESP THERAPY INH Last administered on 04/19/19at 08:50; Admin Dose 3 ML; Start 04/17/19 at 05:00 Multivit/Ca Carb/ B Cmplx/FA/Prenat (Suzie-Paula) 1 tab DAILY PO Last administered on 04/19/19at 08:14; Admin Dose 1 TAB; Start 04/17/19 at 09:00 Ondansetron HCl (Zofran Tab) 4 mg Q6H PRN PO NAUSEA AND/OR VOMITING; Start 04/17/19 at 05:00 Polyethylene Glycol (Miralax) 17 gm DAILY PO Last administered on 04/19/19at 08:15; Admin Dose 17 GM; Start 04/17/19 at 09:00 Morphine Sulfate (morphine) 2 mg Q4H PRN IV SEVERE PAIN LEVEL 7-10 Last administered on 04/18/19at 22:31; Admin Dose 2 MG; Start 04/17/19 at 05:00 Diagnostic Test (Pha) (Accu-Chek) 1 ea 02 XX ; Start 04/18/19 at 02:00 Insulin Aspart (Novolog Insulin Pen) NOVOLOG *MILD* ALGORITHM WITH MEALS BEDTIME SC ; Start 04/17/19 at 08:00 Miscellaneous Information (Pending [facility] Order For Wound Care) This patient davis... PRN PRN XX WOUND CARE; Start 04/17/19 at 05:00 Miscellaneous Information 1 ea NOTE XX ; Start 04/17/19 at 05:30 Glucose (Glutose) 15 gm Q15M PRN PO DECREASED GLUCOSE; Start 04/17/19 at 05:30 Glucose (Glutose) 22.5 gm Q15M PRN PO DECREASED GLUCOSE; Start 04/17/19 at 05:30 Dextrose (D50w Syringe) 25 ml Q15M PRN IV DECREASED GLUCOSE; Start 04/17/19 at 05:30 Dextrose (D50w Syringe) 50 ml Q15M PRN IV DECREASED GLUCOSE; Start 04/17/19 at 05:30 Glucagon (Glucagen) 1 mg Q15M PRN IM DECREASED GLUCOSE; Start 04/17/19 at 05:30 Glucose (Glutose) 15 gm Q15M PRN BUCCAL DECREASED GLUCOSE; Start 04/17/19 at 05:30 Guaifenesin/ Codeine Phosphate (Robitussin Ac Liquid Cup) 5 ml TID PO Last administered on 04/19/19 12:31; Admin Dose 5 ML; Start 04/17/19 at 09:00 Bisacodyl (Dulcolax Supp) 10 mg DAILY PRN [place] CONSTIPATION Last administered on 04/19/19 05:04; Admin Dose 10 MG; Start 04/17/19 at 10:00 Lubiprostone (Amitiza) 24 mcg BID PO Last administered on 04/19/19 08:14; Admin Dose 24 MCG; Start 04/17/19 at 12:00 Heparin Sodium (Porcine) (Heparin (1000 Units/ml)) 4,000 unit AFTER DIALYSIS CATHETER Last administered on 04/18/19 21:31; Admin Dose 3,700 UNIT; Start 04/17/19 at 12:00 Vancomycin HCl (Vanco Iv Per Pharmacy) VANCOMYCIN PER PHARMACY PER PROTOCOL XX ; Start 04/17/19 at 16:00 Meropenem/Sodium Chloride 50 ml @ 100 mls/hr Q12 IVPB Last administered on 04/19/19 08:18; Admin Dose 100 MLS/HR; Start 04/17/19 at 21:00 Tramadol HCl (Ultram) 50 mg Q6H PRN PO MODERATE PAIN LEVEL 4-6 Last administered on 04/19/19 09:37; Admin Dose 50 MG; Start 04/18/19 at 11:00 Hydromorphone HCl (Dilaudid) 4 mg Q6H PRN PO PAIN 7-10/10; Start 04/18/19 at 11:30 Povidone Iodine (Povidone-Iodine) 1 applic DAILY TOP Last administered on 04/19/19 08:19; Admin Dose 1 APPLIC; Start 04/18/19 at 13:00 Pantoprazole (Protonix Tab) 40 mg BID@0600,1800 PO Last administered on 04/19/19 18:05; Admin Dose 40 MG; Start 04/18/19 at 18:00 Albumin Human 100 ml @ 100 mls/hr WITH DIALYSIS PRN IV SBP <90 DURING DIALYSIS Last administered on 04/18/19 18:56; Admin Dose 100 MLS/HR; Start 04/18/19 at 15:00 Sodium Hypochlorite (Dakins Diluted ()) 1 applic TID TP Last administered on 04/19/19at 08:20; Admin Dose 1 APPLIC; Start 04/18/19 at 21:00 Zolpidem Tartrate (Ambien) 5 mg HS PRN PO INSOMNIA Last administered on 04/19/19at 02:40; Admin Dose 5 MG; Start 04/19/19 at 03:00 Metoclopramide HCl (Reglan) 5 mg Q6 IV Last administered on 04/19/19at 18:05; Admin Dose 5 MG; Start 04/19/19 at 18:00 Vancomycin HCl 250 ml @ 125 mls/hr 1800 IVPB Last administered on 04/19/19at 17:59; Admin Dose 125 MLS/HR; Start 04/19/19 at 18:00; Stop 04/19/19 at 23:00 Allergies: Coded Allergies: Citalopram Analogues (Unverified Allergy, Unknown, 03/28/19) amoxicillin (Unverified Allergy, Unknown, 03/28/19) Past Surgical History Past Surgical Hx: angioplasty, appendectomy, cholecystectomy, endoscopy Social History Alcohol Use: none Smoking Status: Never smoker Drug Use: none Exam/Review of Systems Exam Vitals Vital Signs Date Temp Pulse Resp B/P (MAP) Pulse Ox O2 O2 Flow FiO2 Time Delivery Rate 04/19/19 98.4 124 18 95/53 (67) 92 14:06 04/19/19 Nasal 2.0 09:00 Cannula 04/17/19 28 20:29 Intake and Output 04/18/19 04/18/19 04/19/19 1515:00 23:00 07:00 IntakeIntake Total 50 ml 240 ml OutputOutput Total 1800 ml BalanceBalance -1750 ml 240 ml Exam DP pulses and PT pulses weakly palpable Absent protective sensations Bilateral gangrenous heel ulcers measuring 5 x 5cm with indeterminate depth. The ulcers feel boggy and mild seropurulent drainage can be appreciated to the periphery of the wound bed Left foot digits 3-5 with gangrene and plantar forefoot gangrene extending from the aforementioned digits Right foot with hallux amputation noted Mild pain on palpation to gangrene sites. Results Result Diagram: 04/19/19 0440 04/19/19 0440 Results 24hrs Laboratory Tests Test 04/18/19 20:15 04/19/19 04:40 04/19/19 08:06 04/19/19 08:29 Bedside Glucose 87 77 76 White Blood Count 9.8 Red Blood Count 3.71 L Hemoglobin 11.4 L Hematocrit 34.3 L Mean Corpuscular 92.5 Volume Mean Corpuscular 30.7 Hemoglobin Mean Corpuscular 33.2 Hemoglobin Concent Red Cell 18.3 H Distribution Width Platelet Count 151 Mean Platelet Volume 10.8 H Immature 0.800 H Granulocytes % Neutrophils % 82.4 H Lymphocytes % 6.0 L Monocytes % 7.4 Eosinophils % 2.9 Basophils % 0.5 Nucleated Red Blood 0.0 Cells % Immature 0.080 H Granulocytes # Neutrophils # 8.0 H Lymphocytes # 0.6 L Monocytes # 0.7 Eosinophils # 0.3 Basophils # 0.1 Nucleated Red Blood 0.0 Cells # Sodium Level 136 Potassium Level 4.3 Chloride Level 99 Carbon Dioxide Level 24 Anion Gap 13 Blood Urea Nitrogen 23 H Creatinine 3.87 H Est Glomerular 12 L Filtrat Rate mL/min Glucose Level 72 # Calcium Level 7.9 L Phosphorus Level 3.5 Magnesium Level 2.0 Random Vancomycin 19.5 Level Test 04/19/19 08:51 04/19/19 09:33 04/19/19 12:35 04/19/19 13:09 Bedside Glucose 80 106 116 Lactic Acid Level 1.7 Test 04/19/19 17:58 Bedside Glucose 124 Medications Medication Current Medications Acetaminophen (Tylenol Tab) 650 mg Q4H PRN PO FOR FEVER; Start 04/17/19 at 05:00 Albuterol (Proventil 0.083% (Neb)) 2.5 mg Q4H RESP THERAPY PRN NEB WHEEZING AND SOB; Start 04/17/19 at 05:00 Atorvastatin Calcium (Lipitor) 20 mg QHS PO Last administered on 04/18/19at 21:43; Admin Dose 20 MG; Start 04/17/19 at 21:00 Benzonatate (Tessalon) 100 mg Q6 PRN PO COUGH; Start 04/17/19 at 05:00 Bisacodyl (Dulcolax) 5 mg BID PO Last administered on 04/19/19at 08:14; Admin Dose 5 MG; Start 04/17/19 at 09:00 Folic Acid (Folic Acid) 1 mg DAILY PO Last administered on 04/19/19at 08:13; Admin Dose 1 MG; Start 04/17/19 at 09:00 Gabapentin (Neurontin) 300 mg TID PO Last administered on 04/19/19at 12:31; Admin Dose 300 MG; Start 04/17/19 at 09:00 Albuterol/ Ipratropium (Duoneb) 3 ml Q4H RESP THERAPY INH Last administered on 04/19/19at 08:50; Admin Dose 3 ML; Start 04/17/19 at 05:00 Multivit/Ca Carb/ B Cmplx/FA/Prenat (Suzie-Paula) 1 tab DAILY PO Last ad ministered on 04/19/19at 08:14; Admin Dose 1 TAB; Start 04/17/19 at 09:00 Ondansetron HCl (Zofran Tab) 4 mg Q6H PRN PO NAUSEA AND/OR VOMITING; Start 04/17/19 at 05:00 Polyethylene Glycol (Miralax) 17 gm DAILY PO Last administered on 04/19/19at 08:15; Admin Dose 17 GM; Start 04/17/19 at 09:00 Morphine Sulfate (morphine) 2 mg Q4H PRN IV SEVERE PAIN LEVEL 7-10 Last administered on 04/18/19at 22:31; Admin Dose 2 MG; Start 04/17/19 at 05:00 Diagnostic Test (Pha) (Accu-Chek) 1 ea 02 XX ; Start 04/18/19 at 02:00 Insulin Aspart (Novolog Insulin Pen) NOVOLOG *MILD* ALGORITHM WITH MEALS BEDTIME SC ; Start 04/17/19 at 08:00 Miscellaneous Information (Pending [facility] Order For Wound Care) This patient h a... PRN PRN XX WOUND CARE; Start 04/17/19 at 05:00 Miscellaneous Information 1 ea NOTE XX ; Start 04/17/19 at 05:30 Glucose (Glutose) 15 gm Q15M PRN PO DECREASED GLUCOSE; Start 04/17/19 at 05:30 Glucose (Glutose) 22.5 gm Q15M PRN PO DECREASED GLUCOSE; Start 04/17/19 at 05:30 Dextrose (D50w Syringe) 25 ml Q15M PRN IV DECREASED GLUCOSE; Start 04/17/19 at 05:30 Dextrose (D50w Syringe) 50 ml Q15M PRN IV DECREASED GLUCOSE; Start 04/17/19 at 05:30 Glucagon (Glucagen) 1 mg Q15M PRN IM DECREASED GLUCOSE; Start 04/17/19 at 05:30 Glucose (Glutose) 15 gm Q15M PRN BUCCAL DECREASED GLUCOSE; Start 04/17/19 at 05:30 Guaifenesin/ Codeine Phosphate (Robitussin Ac Liquid Cup) 5 ml TID PO Last administered on 04/19/19 12:31; Admin Dose 5 ML; Start 04/17/19 at 09:00 Bisacodyl (Dulcolax Supp) 10 mg DAILY PRN [place] CONSTIPATION Last administered on 04/19/19 05:04; Admin Dose 10 MG; Start 04/17/19 at 10:00 Lubiprostone (Amitiza) 24 mcg BID PO Last administered on 04/19/19 08:14; Admin Dose 24 MCG; Start 04/17/19 at 12:00 Heparin Sodium (Porcine) (Heparin (1000 Units/ml)) 4,000 unit AFTER DIALYSIS CATHETER Last administered on 04/18/19 21:31; Admin Dose 3,700 UNIT; Start 04/17/19 at 12:00 Vancomycin HCl (Vanco Iv Per Pharmacy) VANCOMYCIN PER PHARMACY PER PROTOCOL XX ; Start 04/17/19 at 16:00 Meropenem/Sodium Chloride 50 ml @ 100 mls/hr Q12 IVPB Last administered on 04/19/19 08:18; Admin Dose 100 MLS/HR; Start 04/17/19 at 21:00 Tramadol HCl (Ultram) 50 mg Q6H PRN PO MODERATE PAIN LEVEL 4-6 Last administered on 04/19/19 09:37; Admin Dose 50 MG; Start 04/18/19 at 11:00 Hydromorphone HCl (Dilaudid) 4 mg Q6H PRN PO PAIN 7-10/10; Start 04/18/19 at 11:30 Povidone Iodine (Povidone-Iodine) 1 applic DAILY TOP Last administered on 04/19/19 08:19; Admin Dose 1 APPLIC; Start 04/18/19 at 13:00 Pantoprazole (Protonix Tab) 40 mg BID@0600,1800 PO Last administered on 04/19/19 18:05; Admin Dose 40 MG; Start 04/18/19 at 18:00 Albumin Human 100 ml @ 100 mls/hr WITH DIALYSIS PRN IV SBP <90 DURING DIALYSIS Last administered on 04/18/19 18:56; Admin Dose 100 MLS/HR; Start 04/18/19 at 15:00 Sodium Hypochlorite (Dakins Diluted ()) 1 applic TID TP Last administered on 04/19/19 08:20; Admin Dose 1 APPLIC; Start 04/18/19 at 21:00 Zolpidem Tartrate (Ambien) 5 mg HS PRN PO INSOMNIA Last administered on 04/19/19 02:40; Admin Dose 5 MG; Start 04/19/19 at 03:00 Metoclopramide HCl (Reglan) 5 mg Q6 IV Last administered on 04/19/19 18:05; Admin Dose 5 MG; Start 04/19/19 at 18:00 Vancomycin HCl 250 ml @ 125 mls/hr 1800 IVPB Last administered on 04/19/19 17:59; Admin Dose 125 MLS/HR; Start 04/19/19 at 18:00; Stop 04/19/19 at 23:00 ISAIAS ZARATE DPM April 19, 2019 19:19
[2019-04-19 20:00] VITALS: BP 97/60; RESP 18
[2019-04-19] MEDS: ATORVASTATIN 20 MG TAB PO SCH (21:21)
[2019-04-20] VITALS (46 sets, daily range): BP systolic 64–162; BP diastolic 33–110; PULSE 82–130; RESP 6–24
[2019-04-20] MEDS: METOCLOPRAMIDE 10 MG INJ IV SCH ×4 (00:12→18:29)
[2019-04-20] MEDS: ALBUTEROL/IPRATROPIUM (NEB) 3 ML AMP INH SCH ×7 (00:54→20:42)
[2019-04-20] MEDS: ACCU-CHEK XX SCH (01:33)
[2019-04-20] MEDS: morphine 2 MG INJ IV PRN ×4 (04:36→13:41)
[2019-04-20] MEDS: PANTOPRAZOLE (EC) 40 MG TAB PO SCH ×2 (05:52→17:06)
[2019-04-20] MEDS: INSULIN ASPART [NOVOLOG] 3 ML PEN SC SCH ×4 (08:00→21:00)
[2019-04-20] MEDS: LUBIPROSTONE 24 MCG CAP PO SCH ×2 (08:56→20:12)
[2019-04-20] MEDS: MEROPENEM 500MG/50 ML (PMX) 50 ML IVPB SCH ×2 (08:56→20:54)
[2019-04-20] MEDS: GABAPENTIN 300 MG CAP PO SCH ×3 (08:57→20:12)
[2019-04-20] MEDS: POLYETHYLENE GLYCOL 17 GM PACKET PO SCH (08:57)
[2019-04-20] MEDS: BISACODYL (EC) 5 MG TAB PO SCH ×2 (08:57→20:12)
[2019-04-20] MEDS: FOLIC ACID 1 MG TAB PO SCH (08:57)
[2019-04-20] MEDS: MULTIVIT/CA CARB/B CMPLX/FA TAB PO SCH (08:58)
[2019-04-20] MEDS: GUAIFENESIN/CODEINE 5ML CUP PO SCH ×3 (08:58→20:12)
[2019-04-20] MEDS: DAKINS 0.0125%(1/40) 473 ML SOLUTION TP SCH ×3 (08:58→21:01)
[2019-04-20] MEDS: POVIDONE IODINE 10% 28.4 GM OINT TOP SCH (08:59)
[2019-04-20] MEDS: BALSAM PERU/CASTOR OIL 60 GM TUBE TOP SCH ×2 (08:59→21:01)
--- NOTE | 2019-04-20 09:20 | PREAC ---
Date/Time of Note Date/Time of Note DATE: 04/20/19 TIME: 09:18 Anesthesia Eval and Record Evaluation Time Pre-Procedure Interview DATE: 04/20/19 TIME: 09:18 Age 63 Sex female NPO: 8 hrs Preoperative diagnosis ABDOMINAL PAIN Planned procedure EGD WITH BIOPSIES Past Medical History Past Medical History: Includes Cardio: HTN Endo: Diabetes Renal: ESRD on dialysis, HD last: (TODAY) GI: Obesity Surgery & Anesthesia Issues No known issue Meds Anticoagulation: No Beta Donny within 24 hr: No Reason Beta Donny not given: Pt. not on B-Donny Reported Medications Sucralfate* (Carafate*) 1 Gm Tab, 1 GM PO AC MEALS AND BEDTIME, TAB 03/28/19 Ondansetron Hcl* (Zofran*) 4 Mg Tab, 4 MG PO Q6H PRN for NAUSEA AND/OR VOMITING, TAB 03/28/19 Hydrocodone/Acetaminophen ([place] 5-325 Tablet) 1 Each Tablet, 1 EACH PO Q6H, TAB 03/28/19 Hydromorphone Hcl* (Dilaudid*) 4 Mg Tablet, 4 MG PO Q6H PRN for PAIN -09/07, TAB 03/28/19 Bisacodyl* (Bisacodyl*) 5 Mg Tablet.dr, 5 MG PO BID, TAB 03/28/19 Insulin Aspart* (Novolog Insulin Pen*) 100 Unit/Ml Soln, 0 SC .SLIDING SCALE AC, EA IF BS 150-199=1 UNIT, 200-249=2 UNITS, 250-299=3 UNITS, 300-349=4 UNITS, OVER 349=5 UNITS CALL MD IF BS<60 OR >350 03/28/19 Pantoprazole* (Pantoprazole*) 40 Mg Tablet.dr, 40 MG PO AC BREAKFAST, TAB 03/28/19 Linaclotide (LINZESS) 145 Mcg Capsule, 145 MCG PO DAILY, #30 CAP 03/28/19 Tramadol Hcl* (Tramadol* ER) 100 Mg Tab.er.24h, 100 MG PO TID, #30 TAB 03/28/19 Guaifenesin/Codeine Phosphate (Codeine-Guaifen 10-100 mg/5 ml) 120 Ml Liquid, 5 ML PO TID 03/28/19 Sevelamer Carbonate* (Renvela*) 800 Mg Tablet, 0.8 GM PO WITH MEALS, TAB 03/28/19 Gabapentin* (Gabapentin*) 300 Mg Capsule, 300 MG PO TID, #90 CAP 03/28/19 Ipratropium-Albuterol (Ipratropium-Albuterol) 0.5-3 Mg/3 Ml Ampul.neb, 3 ML INHALATION Q4H, #30 VIAL 03/28/19 Loperamide Hcl* (Loperamide Hcl*) 2 Mg Cap, 2 MG PO Q4H PRN for NEEDED, CAP 03/28/19 Glucagon,Human Recombinant (Glucagon Emergency Kit) 1 Mg Kit, 1 MG IJ NEEDED, KIT 03/28/19 Acetaminophen* (Acetaminophen*) 650 Mg Tablet, 650 MG PO Q4H PRN for FOR FEVER, #30 TAB 03/28/19 Acetaminophen* (Acetaminophen*) 500 MG Extra Strength Tablet, 500 MG PO Q4H PRN for MILD PAIN LEVEL 1-3, TAB 03/28/19 Albuterol Sulfate* (Albuterol Sulfate* Neb) 0.083%-3 Ml Neb, 2.5 MG NEB Q4H PRN for WHEEZING AND SOB, #30 VIAL 03/28/19 Temazepam* (Restoril*) 30 Mg Capsule, 30 MG PO NEEDED PRN for INSOMNIA, CAP 03/28/19 Polyethylene Glycol* (Miralax*) 17 Gm Powd.pack, 17 GM PO DAILY, #30 PACKET 03/28/19 Benzonatate* (Benzonatate*) 100 Mg Capsule, 100 MG PO NEEDED PRN for COUGH, CAP 03/28/19 Lubiprostone* (Amitiza*) 24 Mcg Capsule, 24 MCG PO BID, #60 CAP 03/28/19 Atorvastatin Calcium* (Atorvastatin Calcium*) 20 Mg Tablet, 20 MG PO QHS, #30 TAB 03/28/19 Arginine/Ascorbate Sod/Paula AC (Arginaid Powder) 1 Each Powd.pack, 1 EACH PO DAILY 03/28/19 Multivit/Ca Carb/B Cmplx/Fa* (Suzie-Paula*) 1 Tab Tab, 1 TAB PO DAILY, TAB 03/28/19 Losartan Potassium* (Losartan Potassium*) 25 Mg Tablet, 25 MG PO DAILY, TAB HOLD IF SBP<110 OR HR<60 03/28/19 Furosemide* (Furosemide*) 20 Mg Tablet, 20 MG PO DAILY, #60 TAB 03/28/19 Folic Acid* (Folic Acid*) 1 Mg Tablet, 1 MG PO DAILY, TAB 03/28/19 Famotidine* (Famotidine*) 20 Mg Tablet, 20 MG PO DAILY, #30 TAB 03/28/19 Apixaban* (Eliquis*) 2.5 Mg Tablet, 2.5 MG PO DAILY, TAB 03/28/19 Current Medications Acetaminophen (Tylenol Tab) 650 mg Q4H PRN PO FOR FEVER; Start 04/17/19 at 05:00 Albuterol (Proventil 0.083% (Neb)) 2.5 mg Q4H RESP THERAPY PRN NEB WHEEZING AND SOB; Start 04/17/19 at 05:00 Atorvastatin Calcium (Lipitor) 20 mg QHS PO Last administered on 04/19/19at 21:21; Admin Dose 20 MG; Start 04/17/19 at 21:00 Benzonatate (Tessalon) 100 mg Q6 PRN PO COUGH; Start 04/17/19 at 05:00 Bisacodyl (Dulcolax) 5 mg BID PO Last administered on 04/19/19at 21:21; Admin Dose 5 MG; Start 04/17/19 at 09:00 Folic Acid (Folic Acid) 1 mg DAILY PO Last administered on 04/19/19at 08:13; Admin Dose 1 MG; Start 04/17/19 at 09:00 Gabapentin (Neurontin) 300 mg TID PO Last administered on 04/19/19at 21:21; Admin Dose 300 MG; Start 04/17/19 at 09:00 Albuterol/ Ipratropium (Duoneb) 3 ml Q4H RESP THERAPY INH Last administered on 04/20/19at 05:21; Admin Dose 3 ML; Start 04/17/19 at 05:00 Multivit/Ca Carb/ B Cmplx/FA/Prenat (Suzie-Paula) 1 tab DAILY PO Last administered on 04/19/19at 08:14; Admin Dose 1 TAB; Start 04/17/19 at 09:00 Ondansetron HCl (Zofran Tab) 4 mg Q6H PRN PO NAUSEA AND/OR VOMITING; Start 04/17/19 at 05:00 Polyethylene Glycol (Miralax) 17 gm DAILY PO Last administered on 5/22/19at 08:15; Admin Dose 17 GM; Start 04/17/19 at 09:00 Morphine Sulfate (morphine) 2 mg Q4H PRN IV SEVERE PAIN LEVEL 7-10 Last administered on 04/20/19at 09:06; Admin Dose 2 MG; Start 04/17/19 at 05:00 Diagnostic Test (Pha) (Accu-Chek) 1 ea 02 XX ; Start 04/18/19 at 02:00 Insulin Aspart (Novolog Insulin Pen) NOVOLOG *MILD* ALGORITHM WITH MEALS BEDTIME SC ; Start 04/17/19 at 08:00 Miscellaneous Information (Pending Santyl Order For Wound Care) This patient davis... PRN PRN XX WOUND CARE; Start 04/17/19 at 05:00 Miscellaneous Information 1 ea NOTE XX ; Start 04/17/19 at 05:30 Glucose (Glutose) 15 gm Q15M PRN PO DECREASED GLUCOSE; Start 04/17/19 at 05:30 Glucose (Glutose) 22.5 gm Q15M PRN PO DECREASED GLUCOSE; Start 04/17/19 at 05:30 Dextrose (D50w Syringe) 25 ml Q15M PRN IV DECREASED GLUCOSE; Start 04/17/19 at 05:30 Dextrose (D50w Syringe) 50 ml Q15M PRN IV DECREASED GLUCOSE; Start 04/17/19 at 05:30 Glucagon (Glucagen) 1 mg Q15M PRN IM DECREASED GLUCOSE; Start 04/17/19 at 05:30 Glucose (Glutose) 15 gm Q15M PRN BUCCAL DECREASED GLUCOSE; Start 04/17/19 at 05:30 Guaifenesin/ Codeine Phosphate (Robitussin Ac Liquid Cup) 5 ml TID PO Last administered on 04/19/19at 21:22; Admin Dose 5 ML; Start 04/17/19 at 09:00 Bisacodyl (Dulcolax Supp) 10 mg DAILY PRN [place] CONSTIPATION Last administered on 04/19/19at 05:04; Admin Dose 10 MG; Start 04/17/19 at 10:00 Lubiprostone (Amitiza) 24 mcg BID PO Last administered on 04/19/19at 21:22; Admin Dose 24 MCG; Start 04/17/19 at 12:00 Heparin Sodium (Porcine) (Heparin (1000 Units/ml)) 4,000 unit AFTER DIALYSIS CATHETER Last administered on 04/18/19 21:31; Admin Dose 3,700 UNIT; Start 04/17/19 at 12:00 Vancomycin HCl (Vanco Iv Per Pharmacy) VANCOMYCIN PER PHARMACY PER PROTOCOL XX ; Start 04/17/19 at 16:00 Meropenem/Sodium Chloride 50 ml @ 100 mls/hr Q12 IVPB Last administered on 04/20/19 08:56; Admin Dose 100 MLS/HR; Start 04/17/19 at 21:00 Tramadol HCl (Ultram) 50 mg Q6H PRN PO MODERATE PAIN LEVEL 4-6 Last administered on 04/19/19 09:37; Admin Dose 50 MG; Start 04/18/19 at 11:00 Hydromorphone HCl (Dilaudid) 4 mg Q6H PRN PO PAIN 7-10/10; Start 04/18/19 at 11:30 Povidone Iodine (Povidone-Iodine) 1 applic DAILY TOP Last administered on 04/20/19 08:59; Admin Dose 1 APPLIC; Start 04/18/19 at 13:00 Pantoprazole (Protonix Tab) 40 mg BID@0600,1800 PO Last administered on 04/19/19 18:05; Admin Dose 40 MG; Start 04/18/19 at 18:00 Albumin Human 100 ml @ 100 mls/hr WITH DIALYSIS PRN IV SBP <90 DURING DIALYSIS Last administered on 04/18/19 18:56; Admin Dose 100 MLS/HR; Start 04/18/19 at 15:00 Sodium Hypochlorite (Dakins Diluted ()) 1 applic TID TP Last administered on 04/20/19 08:58; Admin Dose 1 APPLIC; Start 04/18/19 at 21:00 Zolpidem Tartrate (Ambien) 5 mg HS PRN PO INSOMNIA Last administered on 04/19/19 02:40; Admin Dose 5 MG; Start 04/19/19 at 03:00 Metoclopramide HCl (Reglan) 5 mg Q6 IV Last administered on 04/20/19 05:52; Admin Dose 5 MG; Start 04/19/19 at 18:00 Meds reviewed: Yes Allergies Coded Allergies: Citalopram Analogues (Unverified Allergy, Unknown, 03/28/19) amoxicillin (Unverified Allergy, Unknown, 03/28/19) Allergies Reviewed: Yes Labs/Studies Labs Reviewed: Reviewed by anesthesiologist Result Diagram: 04/19/190 04/19/19439 test: N/A Studies: CXR (Aortic atherosclerosis.) Pre-procedure Exam Last vitals Vital Signs Date Temp Pulse Resp B/P (MAP) Pulse Ox O2 O2 Flow FiO2 Time Delivery Rate 04/20/19 97.8 114 18 98/52 (67) 96 08:34 04/20/19 Nasal 2.0 05:22 Cannula 04/17/19 28 20:29 Airway: Adequate mouth opening, Adequate thyromental dist Mallampati: Mallampati II Teeth: Normal Lung: Normal Heart: Normal ASA Physical Status ASA physical status: 4 Emergency: None Planned Anesthetic General/MAC: MAC Planned Pain Management Parenteral pain med Pre-operative Attestations Prior to commencing anesthesia and surgery, the patient was re-evaluated, there was verification of: *The patient's identity *The results of appropriate recent lab work and preoperative vital signs *The above evaluation not changing prior to induction *Anesthetic plan, risk benefits, alternative and complications discussed with patient/family; questions answered; patient/family understands, accepts and wishes to proceed. Kaiser Stapleton M.D. April 20, 2019 09:20
[2019-04-20] MEDS ORDERED: LIDOCAINE 100 MG SYRINGE ONE (09:21)
[2019-04-20] MEDS ORDERED: PROPOFOL 20 ML ONE (09:21)
[2019-04-20] MEDS ORDERED: FENTAnyl 50 MCG/ML VIAL ONE (09:21)
--- NOTE | 2019-04-20 10:16 | PAC ---
Date/Time of Note Date/Time of Note DATE: 04/20/19 TIME: 10:16 Post-Anesthesia Notes Post-Anesthesia Note Last documented vital signs Vital Signs Date Temp Pulse Resp B/P (MAP) Pulse Ox O2 O2 Flow FiO2 Time Delivery Rate 04/20/19 128 18 94/53 (67) 100 Room Air 09:35 04/20/19 2 09:27 04/20/19 97.8 08:34 04/17/19 28 20:29 Activity: WNL Respiratory function: WNL Cardiovascular function: WNL Mental status: Baseline Pain reasonably controlled: Yes Hydration appropriate: Yes Nausea/Vomiting absent: Yes Kaiser Stapleton M.D. April 20, 2019 10:16
[2019-04-20] MEDS ORDERED: MIDODRINE 5 MG TAB PO ONE (12:00)
--- NOTE | 2019-04-20 12:13 | CONS ---
Assessment/Plan Assessment/Plan Assessment/Plan (Daily) For vascular disease End-stage renal disease Continue antibiotics local wound care Serial duplex Will need venous mapping and AV fistula when more stable Consultation Date/Type/Reason Admit Date/Time April 17, 2019 at 00:03 Date of Consultation: April 20, 2019 Type of Consult Vascular surgery Reason for Consultation End-stage renal disease peripheral vascular disease Date/Time of Note DATE: 04/20/19 TIME: 12:12 Hx of Present Illness 63 year-old fe male with a history of hypertension diabetes end-stage renal disease currently on dialysis per permacath which is in the right internal jugular vein patient does not have a fistula patient has bilateral lower e xtremity ulcerations currently being treated with antibiotics and local wound care Is lethargic Respiratory: no complaints Cardiovascular: no complaints Gastrointestinal: no complaints Genitourinary: no complaints Musculoskeletal: no complaints Skin: no complaints Neurologic: no complaints Past Medical History Medical History: coronary artery disease, diabetes, high cholesterol, hypertension, renal disease Home Meds Reported Medications Sucralfate* (Carafate*) 1 Gm Tab, 1 GM PO AC MEALS AND BEDTIME, TAB 03/28/19 Ondansetron Hcl* (Zofran*) 4 Mg Tab, 4 MG PO Q6H PRN for NAUSEA AND/OR VOMITING, TAB 03/28/19 Hydrocodone/Acetaminophen ([place] 5-325 Tablet) 1 Each Tablet, 1 EACH PO Q6H, TAB 03/28/19 Hydromorphone Hcl* (Dilaudid*) 4 Mg Tablet, 4 MG PO Q6H PRN for PAIN 7-10/10, TAB 03/28/19 Bisacodyl* (Bisacodyl*) 5 Mg Tablet.dr, 5 MG PO BID, TAB 03/28/19 Insulin Aspart* (Novolog Insulin Pen*) 100 Unit/Ml Soln, 0 SC .SLIDING SCALE AC, EA IF BS 150-199=1 UNIT, 200-249=2 UNITS, 250-299=3 UNITS, 300-349=4 UNITS, OVER 349=5 UNITS CALL MD IF BS<60 OR >350 03/28/19 Pantoprazole* (Pantoprazole*) 40 Mg Tablet.dr, 40 MG PO AC BREAKFAST, TAB 03/28/19 Linaclotide (LINZESS) 145 Mcg Capsule, 145 MCG PO DAILY, #30 CAP 03/28/19 Tramadol Hcl* (Tramadol* ER) 100 Mg Tab.er.24h, 100 MG PO TID, #30 TAB 03/28/19 Guaifenesin/Codeine Phosphate (Codeine-Guaifen 10-100 mg/5 ml) 120 Ml Liquid, 5 ML PO TID 03/28/19 Sevelamer Carbonate* (Renvela*) 800 Mg Tablet, 0.8 GM PO WITH MEALS, TAB 03/28/19 Gabapentin* (Gabapentin*) 300 Mg Capsule, 300 MG PO TID, #90 CAP 03/28/19 Ipratropium-Albuterol (Ipratropium-Albuterol) 0.5-3 Mg/3 Ml Ampul.neb, 3 ML I NHALATION Q4H, #30 VIAL 03/28/19 Loperamide Hcl* (Loperamide Hcl*) 2 Mg Cap, 2 MG PO Q4H PRN for NEEDED, CAP 03/28/19 Glucagon,Human Recombinant (Glucagon Emergency Kit) 1 Mg Kit, 1 MG IJ NEEDED, KIT 03/28/19 Acetaminophen* (Acetaminophen*) 650 Mg Tablet, 650 MG PO Q4H PRN for FOR FEVER, #30 TAB 03/28/19 Acetaminophen* (Acetaminophen*) 500 MG Extra Strength Tablet, 500 MG PO Q4H PRN for MILD PAIN LEVEL 1-3, TAB 03/28/19 Albuterol Sulfate* (Albuterol Sulfate* Neb) 0.083%-3 Ml Neb, 2.5 MG NEB Q4H PRN for WHEEZING AND SOB, #30 VIAL 03/28/19 Temazepam* (Restoril*) 30 Mg Capsule, 30 MG PO NEEDED PRN for INSOMNIA, CAP 03/28/19 Polyethylene Glycol* (Miralax*) 17 Gm Powd.pack, 17 GM PO DAILY, #30 PACKET 03/28/19 Benzonatate* (Benzonatate*) 100 Mg Capsule, 100 MG PO NEEDED PRN for COUGH, CAP 03/28/19 Lubiprostone* (Amitiza*) 24 Mcg Capsule, 24 MCG PO BID, #60 CAP 03/28/19 Atorvastatin Calcium* (Atorvastatin Calcium*) 20 Mg Tablet, 20 MG PO QHS, #30 TAB 03/28/19 Arginine/Ascorbate Sod/Paula AC (Arginaid Powder) 1 Each Powd.pack, 1 EACH PO DAILY 03/28/19 Multivit/Ca Carb/B Cmplx/Fa* (Suzie-Paula*) 1 Tab Tab, 1 TAB PO DAILY, TAB 03/28/19 Losartan Potassium* (Losartan Potassium*) 25 Mg Tablet, 25 MG PO DAILY, TAB HOLD IF SBP<110 OR HR<60 03/28/19 Furosemide* (Furosemide*) 20 Mg Tablet, 20 MG PO DAILY, #60 TAB 03/28/19 Folic Acid* (Folic Acid*) 1 Mg Tablet, 1 MG PO DAILY, TAB 03/28/19 Famotidine* (Famotidine*) 20 Mg Tablet, 20 MG PO DAILY, #30 TAB 03/28/19 Apixaban* (Eliquis*) 2.5 Mg Tablet, 2.5 MG PO DAILY, TAB 03/28/19 Medications Current Medications Acetaminophen (Tylenol Tab) 650 mg Q4H PRN PO FOR FEVER; Start 04/17/19 at 05:00 Albuterol (Proventil 0.083% (Neb)) 2.5 mg Q4H RESP THERAPY PRN NEB WHEEZING AND SOB; Start 04/17/19 at 05:00 Atorvastatin Calcium (Lipitor) 20 mg QHS PO Last administered on 04/19/19at 21:21; Admin Dose 20 MG; Start 04/17/19 at 21:00 Benzonatate (Tessalon) 100 mg Q6 PRN PO COUGH; Start 04/17/19 at 05:00 Bisacodyl (Dulcolax) 5 mg BID PO Last administered on 04/19/19at 21:21; Admin Dose 5 MG; Start 04/17/19 at 09:00 Folic Acid (Folic Acid) 1 mg DAILY PO Last administered on 04/19/19at 08:13; Admin Dose 1 MG; Start 04/17/19 at 09:00 Gabapentin (Neurontin) 300 mg TID PO Last administered on 04/19/19at 21:21; Admin Dose 300 MG; Start 04/17/19 at 09:00 Albuterol/ Ipratropium (Duoneb) 3 ml Q4H RESP THERAPY INH Last administered on 04/20/19at 05:21; Admin Dose 3 ML; Start 04/17/19 at 05:00 Multivit/Ca Carb/ B Cmplx/FA/Prenat (Suzie-Paula) 1 tab DAILY PO Last administered on 04/19/19at 08:14; Admin Dose 1 TAB; Start 04/17/19 at 09:00 Ondansetron HCl (Zofran Tab) 4 mg Q6H PRN PO NAUSEA AND/OR VOMITING; Start 04/17/19 at 05:00 Polyethylene Glycol (Miralax) 17 gm DAILY PO Last administered on 04/19/19at 08:15; Admin Dose 17 GM; Start 04/17/19 at 09:00 Morphine Sulfate (morphine) 2 mg Q4H PRN IV SEVERE PAIN LEVEL 7-10 Last administered on 04/20/19at 09:06; Admin Dose 2 MG; Start 04/17/19 at 05:00 Diagnostic Test (Pha) (Accu-Chek) 1 ea 02 XX ; Start 04/18/19 at 02:00 Insulin Aspart (Novolog Insulin Pen) NOVOLOG *MILD* ALGORITHM WITH MEALS BEDTIME SC ; Start 04/17/19 at 08:00 Miscellaneous Information (Pending [facility] Order For Wound Care) This patient davis... PRN PRN XX WOUND CARE; Start 04/17/19 at 05:00 Miscellaneous Information 1 ea NOTE XX ; Start 04/17/19 at 05:30 Glucose (Glutose) 15 gm Q15M PRN PO DECREASED GLUCOSE; Start 04/17/19 at 05:30 Glucose (Glutose) 22.5 gm Q15M PRN PO DECREASED GLUCOSE; Start 04/17/19 at 05 :30 Dextrose (D50w Syringe) 25 ml Q15M PRN IV DECREASED GLUCOSE; Start 04/17/19 at 05:30 Dextrose (D50w Syringe) 50 ml Q15M PRN IV DECREASED GLUCOSE; Start 04/17/19 at 05:30 Glucagon (Glucagen) 1 mg Q15M PRN IM DECREASED GLUCOSE; Start 04/17/19 at 05:30 Glucose (Glutose) 15 gm Q15M PRN BUCCAL DECREASED GLUCOSE; Start 04/17/19 at 05:30 Guaifenesin/ Codeine Phosphate (Robitussin Ac Liquid Cup) 5 ml TID PO Last administered on 04/19/19at 21:22; Admin Dose 5 ML; Start 04/17/19 at 09:00 Bisacodyl (Dulcolax Supp) 10 mg DAILY PRN [place] CONSTIPATION Last administered on 04/19/19 05:04; Admin Dose 10 MG; Start 04/17/19 at 10:00 Lubiprostone (Amitiza) 24 mcg BID PO Last administered on 04/19/19 21:22; Admin Dose 24 MCG; Start 04/17/19 at 12:00 Heparin Sodium (Porcine) (Heparin (1000 Units/ml)) 4,000 unit AFTER DIALYSIS CATHETER Last administered on 04/18/19 21:31; Admin Dose 3,700 UNIT; Start 04/17/19 at 12:00 Vancomycin HCl (Vanco Iv Per Pharmacy) VANCOMYCIN PER PHARMACY PER PROTOCOL XX ; Start 04/17/19 at 16:00 Meropenem/Sodium Chloride 50 ml @ 100 mls/hr Q12 IVPB Last administered on 04/20/19 08:56; Admin Dose 100 MLS/HR; Start 04/17/19 at 21:00 Tramadol HCl (Ultram) 50 mg Q6H PRN PO MODERATE PAIN LEVEL 4-6 Last administered on 04/19/19 09:37; Admin Dose 50 MG; Start 04/18/19 at 11:00 Hydromorphone HCl (Dilaudid) 4 mg Q6H PRN PO PAIN 7-10/10; Start 04/18/19 at 11:30 Povidone Iodine (Povidone-Iodine) 1 applic DAILY TOP Last administered on 04/20/19 08:59; Admin Dose 1 APPLIC; Start 04/18/19 at 13:00 Pantoprazole (Protonix Tab) 40 mg BID@0600,1800 PO Last administered on 04/19/19 18:05; Admin Dose 40 MG; Start 04/18/19 at 18:00 Albumin Human 100 ml @ 100 mls/hr WITH DIALYSIS PRN IV SBP <90 DURING DIALYSIS Last administered on 04/18/19 18:56; Admin Dose 100 MLS/HR; Start 04/18/19 at 15:00 Sodium Hypochlorite (Dakins Diluted ()) 1 applic TID TP Last administered on 04/20/19 08:58; Admin Dose 1 APPLIC; Start 04/18/19 at 21:00 Zolpidem Tartrate (Ambien) 5 mg HS PRN PO INSOMNIA Last administered on 5/22/19at 02:40; Admin Dose 5 MG; Start 04/19/19 at 03:00 Metoclopramide HCl (Reglan) 5 mg Q6 IV Last administered on 04/20/19at 05:52; Admin Dose 5 MG; Start 04/19/19 at 18:00 Albumin Human 100 ml @ 100 mls/hr ONCE ONCE IV Last administered on 04/20/19at 11:17; Admin Dose 100 MLS/HR; Start 04/20/19 at 12:30; Stop 04/20/19 at 13:29 Albumin Human 50 ml @ 100 mls/hr Q8H IV ; Start 04/20/19 at 12:30; Stop 04/21/19 at 04:59 Allergies: Coded Allergies: Citalopram Analogues (Unverified Allergy, Unknown, 03/28/19) amoxicillin (Unverified Allergy, Unknown, 03/28/19) Past Surgical History Past Surgical Hx: angioplasty, appendectomy, cholecystectomy, endoscopy Social History Alcohol Use: none Smoking Status: Never smoker Drug Use: none Exam/Review of Systems Exam Vitals Vital Signs Date Temp Pulse Resp B/P (MAP) Pulse Ox O2 O2 Flow FiO2 Time Delivery Rate 04/20/19 118 13 65/41 (49) 94 Nasal 2.0 11:20 Cannula 04/20/19 98.0 10:10 04/17/19 28 20:29 Intake and Output 04/19/19 04/19/19 04/20/19 1515:00 23:00 07:00 IntakeIntake Total 530 ml 780 ml BalanceBalance 530 ml 780 ml Eyes: nl conjunctiva, EOMI, nl lids, nl sclera, PERRL ENMT: nl external ears & nose, nl lips & teeth, nl nasal mucosa & septum Neck: supple, non-tender Respiratory: clear to auscultation, normal air movement Cardiovascular: regular rate and rhythm, nl pulses Gastrointestinal: soft, nl liver, spleen, non-tender Musculoskeletal: nl extremities to inspection, nl gait and stance Extremities: normal pulses Neurological: [employer] II-XII intact, nl mental status, nl speech, nl strength Additional Comments Right internal jugular vein tunneled hemodialysis catheter noted Bilateral lower extremity ulcerations noted in the feet Results Result Diagram: 04/19/19 0440 04/19/19 0440 Results 24hrs Laboratory Tests Test 04/19/19 12:35 04/19/19 13:09 04/19/19 17:58 04/19/19 21:28 Bedside Glucose 116 124 137 Lactic Acid Level 1.7 Test 04/20/19 05:28 04/20/19 08:55 04/20/19 09:21 Prothrombin Time 21.8 #H Prothrombin Time 1.7 Ratio INR International 1.89 Normalized Ratio Bedside Glucose 107 111 Medications Medication Current Medications Acetaminophen (Tylenol Tab) 650 mg Q4H PRN PO FOR FEVER; Start 04/17/19 at 05:00 Albuterol (Proventil 0.083% (Neb)) 2.5 mg Q4H RESP THERAPY PRN NEB WHEEZING AND SOB; Start 04/17/19 at 05:00 Atorvastatin Calcium (Lipitor) 20 mg QHS PO Last administered on 04/19/19 21:21; Admin Dose 20 MG; Start 04/17/19 at 21:00 Benzonatate (Tessalon) 100 mg Q6 PRN PO COUGH; Start 04/17/19 at 05:00 Bisacodyl (Dulcolax) 5 mg BID PO Last administered on 04/19/19 21:21; Admin Dose 5 MG; Start 04/17/19 at 09:00 Folic Acid (Folic Acid) 1 mg DAILY PO Last administered on 04/19/19 08:13; Admin Dose 1 MG; Start 04/17/19 at 09:00 Gabapentin (Neurontin) 300 mg TID PO Last administered on 04/19/19 21:21; Admin Dose 300 MG; Start 04/17/19 at 09:00 Albuterol/ Ipratropium (Duoneb) 3 ml Q4H RESP THERAPY INH Last administered on 04/20/19 05:21; Admin Dose 3 ML; Start 04/17/19 at 05:00 Multivit/Ca Carb/ B Cmplx/FA/Prenat (Suzie-Paula) 1 tab DAILY PO Last administered on 04/19/19 08:14; Admin Dose 1 TAB; Start 04/17/19 at 09:00 Ondansetron HCl (Zofran Tab) 4 mg Q6H PRN PO NAUSEA AND/OR VOMITING; Start 04/17/19 at 05:00 Polyethylene Glycol (Miralax) 17 gm DAILY PO Last administered on 5/22/19at 08 :15; Admin Dose 17 GM; Start 04/17/19 at 09:00 Morphine Sulfate (morphine) 2 mg Q4H PRN IV SEVERE PAIN LEVEL 7-10 Last administered on 04/20/19at 09:06; Admin Dose 2 MG; Start 04/17/19 at 05:00 Diagnostic Test (Pha) (Accu-Chek) 1 ea 02 XX ; Start 04/18/19 at 02:00 Insulin Aspart (Novolog Insulin Pen) NOVOLOG *MILD* ALGORITHM WITH MEALS BEDTIME SC ; Start 04/17/19 at 08:00 Miscellaneous Information (Pending Santyl Order For Wound Care) This patient davis... PRN PRN XX WOUND CARE; Start 04/17/19 at 05:00 Miscellaneous Information 1 ea NOTE XX ; Start 04/17/19 at 05:30 Glucose (Glutose) 15 gm Q15M PRN PO DECREASED GLUCOSE; Start 04/17/19 at 05:30 Glucose (Glutose) 22.5 gm Q15M PRN PO DECREASED GLUCOSE; Start 04/17/19 at 05:30 Dextrose (D50w Syringe) 25 ml Q15M PRN IV DECREASED GLUCOSE; Start 04/17/19 at 05:30 Dextrose (D50w Syringe) 50 ml Q15M PRN IV DECREASED GLUCOSE; Start 04/17/19 at 05:30 Glucagon (Glucagen) 1 mg Q15M PRN IM DECREASED GLUCOSE; Start 04/17/19 at 05:30 Glucose (Glutose) 15 gm Q15M PRN BUCCAL DECREASED GLUCOSE; Start 04/17/19 at 05:30 Guaifenesin/ Codeine Phosphate (Robitussin Ac Liquid Cup) 5 ml TID PO Last administered on 04/19/19at 21:22; Admin Dose 5 ML; Start 04/17/19 at 09:00 Bisacodyl (Dulcolax Supp) 10 mg DAILY PRN [place] CONSTIPATION Last administered on 04/19/19at 05:04; Admin Dose 10 MG; Start 04/17/19 at 10:00 Lubiprostone (Amitiza) 24 mcg BID PO Last administered on 04/19/19at 21:22; Admin Dose 24 MCG; Start 04/17/19 at 12:00 Heparin Sodium (Porcine) (Heparin (1000 Units/ml)) 4,000 unit AFTER DIALYSIS CATHETER Last administered on 04/18/19 21:31; Admin Dose 3,700 UNIT; Start 04/17/19 at 12:00 Vancomycin HCl (Vanco Iv Per Pharmacy) VANCOMYCIN PER PHARMACY PER PROTOCOL XX ; Start 04/17/19 at 16:00 Meropenem/Sodium Chloride 50 ml @ 100 mls/hr Q12 IVPB Last administered on 04/20/19 08:56; Admin Dose 100 MLS/HR; Start 04/17/19 at 21:00 Tramadol HCl (Ultram) 50 mg Q6H PRN PO MODERATE PAIN LEVEL 4-6 Last administered on 04/19/19 09:37; Admin Dose 50 MG; Start 04/18/19 at 11:00 Hydromorphone HCl (Dilaudid) 4 mg Q6H PRN PO PAIN 7-10/10; Start 04/18/19 at 11:30 Povidone Iodine (Povidone-Iodine) 1 applic DAILY TOP Last administered on 04/20/19 08:59; Admin Dose 1 APPLIC; Start 04/18/19 at 13:00 Pantoprazole (Protonix Tab) 40 mg BID@0600,1800 PO Last administered on 04/19/19 18:05; Admin Dose 40 MG; Start 04/18/19 at 18:00 Albumin Human 100 ml @ 100 mls/hr WITH DIALYSIS PRN IV SBP <90 DURING DIALYSIS Last administered on 04/18/19 18:56; Admin Dose 100 MLS/HR; Start 04/18/19 at 15:00 Sodium Hypochlorite (Dakins Diluted ()) 1 applic TID TP Last administered on 04/20/19 08:58; Admin Dose 1 APPLIC; Start 04/18/19 at 21:00 Zolpidem Tartrate (Ambien) 5 mg HS PRN PO INSOMNIA Last administered on 04/19/19 02:40; Admin Dose 5 MG; Start 04/19/19 at 03:00 Metoclopramide HCl (Reglan) 5 mg Q6 IV Last administered on 04/20/19 05:52; Admin Dose 5 MG; Start 04/19/19 at 18:00 Albumin Human 100 ml @ 100 mls/hr ONCE ONCE IV Last administered on 04/20/19 11:17; Admin Dose 100 MLS/HR; Start 04/20/19 at 12:30; Stop 04/20/19 at 13:29 Albumin Human 50 ml @ 100 mls/hr Q8H IV ; Start 04/20/19 at 12:30; Stop 04/21/19 at 04:59 NICOLE DAILEY MD April 20, 2019 12:13
[2019-04-20] MEDS ORDERED: ALBUMIN HUMAN 25% 50 ML IV SCH (12:30)
[2019-04-20] MEDS ORDERED: NORepinephrine 8MG/250 ML (PMX 250 ML IV SCH (12:30)
[2019-04-20] MEDS ORDERED: ALBUMIN HUMAN 25% 100 ML IV ONE (12:30)
[2019-04-20] MEDS ORDERED: AMIODARONE 150MG/D5W BOLUS 100 ML IV ONE (12:30)
--- NOTE | 2019-04-20 12:30 | CONS ---
Assessment/Plan Assessment/Plan Hospital Course (Demo Recall) Patient had EGD this morning became hypotensive in recovery room and transferred to ICU she is awake in no distress with a blood pressure of 65/41 heart rate 118 respirations 12 blood saturation 94% on nasal cannula. No labs today. Microbiology: Left foot wound culture grew E. coli susceptible to cefotaxime and aminoglycosides, R foot wound cx pending. Blood cultures negative Antimicrobials: Meropenem vancomycin Indwelling: Right chest permacath. Allergy: Amoxicillin Physical examination: This is a wasted obese well-developed fragile elderly woman who is awake in no distress. Head atraumatic normocephalic. Neck is supple. Chest rise symmetrical breath sounds diminished bases. Heart: S1-S2. Abdomen soft bowel sounds present. Extremities with bilateral lower extremities gangrene Assessment: 1. Clinical sepsis with tachycardia, hypotension and leukocytosis 2. Bilateral lower extremities gangrene 3. End-stage renal disease 4. Peripheral arterial disease, status post right posterior tibial artery angioplasty 03/01/19 5. Diabetes 6. Failure to thrive Plan: Patient is clinically stable, hypotensive postprocedure, continue antibiot ics, await for final wound cx. Pending surgical intervention for bilateral foot debridement and possible L digit amputation of 3rd-5th on Wednesday Consultation Date/Type/Reason Admit Date/Time April 17, 2019 at 00:03 Initial Consult Date 04/17/19 Type of Consult id Requesting Provider: ALONZO KNOWLES MD Date/Time of Note DATE: 04/20/19 TIME: 12:28 Exam/Review of Systems Exam Vitals Vital Signs Date Temp Pulse Resp B/P (MAP) Pulse Ox O2 O2 Flow FiO2 Time Delivery Rate 04/20/19 118 13 65/41 (49) 94 Nasal 2.0 11:20 Cannula 04/20/19 98.0 10:10 04/17/19 28 20:29 Intake and Output 04/19/19 04/19/19 04/20/19 1515:00 23:00 07:00 IntakeIntake Total 530 ml 780 ml BalanceBalance 530 ml 780 ml Results Result Diagram: 04/19/190 04/19/19439 Results 24hrs Laboratory Tests Test 04/19/19 12:35 04/19/19 13:09 04/19/19 17:58 04/19/19 21:28 Bedside Glucose 116 124 137 Lactic Acid Level 1.7 Test 04/20/19 05:28 04/20/19 08:55 04/20/19 09:21 Prothrombin Time 21.8 #H Prothrombin Time 1.7 Ratio INR International 1.89 Normalized Ratio Bedside Glucose 107 111 Medications Medication Current Medications Acetaminophen (Tylenol Tab) 650 mg Q4H PRN PO FOR FEVER; Start 04/17/19 at 05:00 Albuterol (Proventil 0.083% (Neb)) 2.5 mg Q4H RESP THERAPY PRN NEB WHEEZING AND SOB; Start 04/17/19 at 05:00 Atorvastatin Calcium (Lipitor) 20 mg QHS PO Last administered on 04/19/19 21:21; Admin Dose 20 MG; Start 04/17/19 at 21:00 Benzonatate (Tessalon) 100 mg Q6 PRN PO COUGH; Start 04/17/19 at 05:00 Bisacodyl (Dulcolax) 5 mg BID PO Last administered on 04/19/19 21:21; Admin Dose 5 MG; Start 04/17/19 at 09:00 Folic Acid (Folic Acid) 1 mg DAILY PO Last administered on 04/19/19 08:13; Admin Dose 1 MG; Start 04/17/19 at 09:00 Gabapentin (Neurontin) 300 mg TID PO Last administered on 04/19/19 21:21; Admin Dose 300 MG; Start 04/17/19 at 09:00 Albuterol/ Ipratropium (Duoneb) 3 ml Q4H RESP THERAPY INH Last administered on 04/20/19 05:21; Admin Dose 3 ML; Start 04/17/19 at 05:00 Multivit/Ca Carb/ B Cmplx/FA/Prenat (Suzie-Paula) 1 tab DAILY PO Last administered on 04/19/19 08:14; Admin Dose 1 TAB; Start 04/17/19 at 09:00 Ondansetron HCl (Zofran Tab) 4 mg Q6H PRN PO NAUSEA AND/OR VOMITING; Start 04/17/19 at 05:00 Polyethylene Glycol (Miralax) 17 gm DAILY PO Last administered on 04/19/19 08:15; Admin Dose 17 GM; Start 04/17/19 at 09:00 Morphine Sulfate (morphine) 2 mg Q4H PRN IV SEVERE PAIN LEVEL 7-10 Last administered on 04/20/19at 09:06; Admin Dose 2 MG; Start 04/17/19 at 05:00 Diagnostic Test (Pha) (Accu-Chek) 1 ea 02 XX ; Start 04/18/19 at 02:00 Insulin Aspart (Novolog Insulin Pen) NOVOLOG *MILD* ALGORITHM WITH MEALS BEDTIME SC ; Start 04/17/19 at 08:00 Miscellaneous Information ([facility] This patient davis... PRN PRN XX WOUND CARE; Start 04/17/19 at 05:00 Miscellaneous Information 1 ea NOTE XX ; Start 04/17/19 at 05:30 Glucose (Glutose) 15 gm Q15M PRN PO DECREASED GLUCOSE; Start 04/17/19 at 05:30 Glucose (Glutose) 22.5 gm Q15M PRN PO DECREASED GLUCOSE; Start 04/17/19 at 05:30 Dextrose (D50w Syringe) 25 ml Q15M PRN IV DECREASED GLUCOSE; Start 04/17/19 at 05:30 Dextrose (D50w Syringe) 50 ml Q15M PRN IV DECREASED GLUCOSE; Start 04/17/19 at 05:30 Glucagon (Glucagen) 1 mg Q15M PRN IM DECREASED GLUCOSE; Start 04/17/19 at 05:30 Glucose (Glutose) 15 gm Q15M PRN BUCCAL DECREASED GLUCOSE; Start 04/17/19 at 05:30 Guaifenesin/ Codeine Phosphate (Robitussin Ac Liquid Cup) 5 ml TID PO Last administered on 04/19/19at 21:22; Admin Dose 5 ML; Start 04/17/19 at 09:00 Bisacodyl (Dulcolax Supp) 10 mg DAILY PRN [place] CONSTIPATION Last administered on 04/19/19at 05:04; Admin Dose 10 MG; Start 04/17/19 at 10:00 Lubiprostone (Amitiza) 24 mcg BID PO Last administered on 04/19/19at 21:22; Admin Dose 24 MCG; Start 04/17/19 at 12:00 Heparin Sodium (Porcine) (Heparin (1000 Units/ml)) 4,000 unit AFTER DIALYSIS CATHETER Last administered on 04/18/19at 21:31; Admin Dose 3,700 UNIT; Start 04/17/19 at 12:00 Vancomycin HCl (Vanco Iv Per Pharmacy) VANCOMYCIN PER PHARMACY PER PROTOCOL XX ; Start 04/17/19 at 16:00 Meropenem/Sodium Chloride 50 ml @ 100 mls/hr Q12 IVPB Last administered on 04/20/19 08:56; Admin Dose 100 MLS/HR; Start 04/17/19 at 21:00 Tramadol HCl (Ultram) 50 mg Q6H PRN PO MODERATE PAIN LEVEL 4-6 Last administered on 04/19/19 09:37; Admin Dose 50 MG; Start 04/18/19 at 11:00 Hydromorphone HCl (Dilaudid) 4 mg Q6H PRN PO PAIN 7-10/10; Start 04/18/19 at 11:30 Povidone Iodine (Povidone-Iodine) 1 applic DAILY TOP Last administered on 04/20/19 08:59; Admin Dose 1 APPLIC; Start 04/18/19 at 13:00 Pantoprazole (Protonix Tab) 40 mg BID@0600,1800 PO Last administered on 04/19/19 18:05; Admin Dose 40 MG; Start 04/18/19 at 18:00 Albumin Human 100 ml @ 100 mls/hr WITH DIALYSIS PRN IV SBP <90 DURING DIALYSIS Last administered on 04/18/19 18:56; Admin Dose 100 MLS/HR; Start 04/18/19 at 15:00 Sodium Hypochlorite (Dakins Diluted ()) 1 applic TID TP Last administered on 04/20/19 08:58; Admin Dose 1 APPLIC; Start 04/18/19 at 21:00 Zolpidem Tartrate (Ambien) 5 mg HS PRN PO INSOMNIA Last administered on 04/19/19 02:40; Admin Dose 5 MG; Start 04/19/19 at 03:00 Metoclopramide HCl (Reglan) 5 mg Q6 IV Last administered on 04/20/19 05:52; Admin Dose 5 MG; Start 04/19/19 at 18:00 Albumin Human 100 ml @ 100 mls/hr ONCE ONCE IV Last administered on 04/20/19 11:17; Admin Dose 100 MLS/HR; Start 04/20/19 at 12:30; Stop 04/20/19 at 13:29 Norepinephrine 250 ml @ 1.875 mls/ hr TITRATE IV ; Start 04/20/19 at 12:30 Amiodarone HCl 100 ml @ 600 mls/hr ONCE ONCE IV ; Start 04/20/19 at 12:30; Stop 04/20/19 at 12:39 Amiodarone HCl 900 mg/Dextrose 500 ml @ 33.33 mls/ hr Q15H1M IV ; Start 04/20/19 at 13:30; Stop 04/21/19 at 13:29 JOHANA KULKARNI NP April 20, 2019 12:30
--- NOTE | 2019-04-20 13:06 | PN ---
Date/Time of Note Date/Time of Note DATE: 04/20/19 TIME: 12:58 Assessment/Plan VTE Prophylaxis Risk score (from Ns)>0 risk: 7 SCD applied (from [facility] [place] SCD contraindicated: bilateral LE trauma Pharmacological prophylaxis: NA/contraindicated Pharm contraindication: surgical contra Lines/Catheters IV C[facility]ter Type (from [facility] Peripheral IV Urinary Cath still in place: No Assessment/Plan Hospital Course 1. Abdominal pain with some nausea. CT of the abdomen and pelvis showed severe left hydronephrosis, status post cholecystectomy. LFTs within normal limit except mildly elevated alkaline phosphatase. Lipase is 22. Likely secondary to constipation vs gastritis vs gastroparesis abdominal pain is still persistent. Versus choledocholithiasis 2. Severe left hydronephrosis secondary to UPJ junction, no urinary stone. probably chronic , no intervention per urology 3. Bilateral lower extremity ulcers with gangrene, followed by Dr. Schultz. 4. End-stage renal disease, on hemodialysis. 5. Hypotension, on dialysis. could be secondary to infected ulcers, hold bp meds 6. Diabetes. 7. Hypertension. 8. Peripheral vascular disease. 9. History of gastritis. 10. History of gastroparesis. 11. History of atrial fibrillation. 12 anasarca 13. Afib, RVR Assessment/Plan -levophed prn -dr Flowers consult - iv vanco/meropenem per ID -podiatry Dr Browning for ulcers - iv albumin needed with HD support -We will try to do HD tomorrow with volume removal since patient is having edema, give midodrine/before - pain control with morphine./tramadaol - podiatry consult - gi proph. Protonix -dvt prophylaxis unable to tolerate Result Diagram: 04/19/1943904/19/19439 Results 24hrs Laboratory Tests Test 04/19/19 13:09 04/19/19 17:58 04/19/19 21:28 04/20/19 05:28 Lactic Acid Level 1.7 Bedside Glucose 124 137 Prothrombin Time 21.8 #H Prothrombin Time 1.7 Ratio INR International 1.89 Normalized Ratio Test 04/20/19 08:55 04/20/19 09:21 Bedside Glucose 107 111 Subjective 24 Hr Interval Summary Free Text/Dictation in pain during procedure Exam/Review of Systems Exam Vitals Vital Signs Date Temp Pulse Resp B/P (MAP) Pulse Ox O2 O2 Flow FiO2 Time Delivery Rate 04/20/19 118 13 65/41 (49) 94 Nasal 2.0 11:20 Cannula 04/20/19 98.0 10:10 04/17/19 28 20:29 Intake and Output 04/19/19 04/19/19 04/20/19 1515:00 23:00 07:00 IntakeIntake Total 530 ml 780 ml BalanceBalance 530 ml 780 ml Exam right chest Permcath Constitutional: alert, oriented Head: normocephalic Neck: supple Respiratory: diminished breath sounds Cardiovascular: irregular rhythm Gastrointestinal: soft, distended Extremities: other (left central line) Results Results 24hrs Laboratory Tests Test 04/19/19 13:09 04/19/19 17:58 04/19/19 21:28 04/20/19 05:28 Lactic Acid Level 1.7 Bedside Glucose 124 137 Prothrombin Time 21.8 #H Prothrombin Time 1.7 Ratio INR International 1.89 Normalized Ratio Test 04/20/19 08:55 04/20/19 09:21 Bedside Glucose 107 111 Medications Medication Current Medications Acetaminophen (Tylenol Tab) 650 mg Q4H PRN PO FOR FEVER; Start 04/17/19 at 05:00 Albuterol (Proventil 0.083% (Neb)) 2.5 mg Q4H RESP THERAPY PRN NEB WHEEZING AND SOB; Start 04/17/19 at 05:00 Atorvastatin Calcium (Lipitor) 20 mg QHS PO Last administered on 04/19/19at 21:21; Admin Dose 20 MG; Start 04/17/19 at 21:00 Benzonatate (Tessalon) 100 mg Q6 PRN PO COUGH; Start 04/17/19 at 05:00 Bisacodyl (Dulcolax) 5 mg BID PO Last administered on 04/19/19at 21:21; Admin Dose 5 MG; Start 04/17/19 at 09:00 Folic Acid (Folic Acid) 1 mg DAILY PO Last administered on 04/19/19at 08:13; Admin Dose 1 MG; Start 04/17/19 at 09:00 Gabapentin (Neurontin) 300 mg TID PO Last administered on 04/19/19at 21:21; Admin Dose 300 MG; Start 04/17/19 at 09:00 Albuterol/ Ipratropium (Duoneb) 3 ml Q4H RESP THERAPY INH Last administered on 04/20/19at 05:21; Admin Dose 3 ML; Start 04/17/19 at 05:00 Multivit/Ca Carb/ B Cmplx/FA/Prenat (Suzie-Paula) 1 tab DAILY PO Last admin istered on 04/19/19at 08:14; Admin Dose 1 TAB; Start 04/17/19 at 09:00 Ondansetron HCl (Zofran Tab) 4 mg Q6H PRN PO NAUSEA AND/OR VOMITING; Start 04/17/19 at 05:00 Polyethylene Glycol (Miralax) 17 gm DAILY PO Last administered on 04/19/19at 08:15; Admin Dose 17 GM; Start 04/17/19 at 09:00 Morphine Sulfate (morphine) 2 mg Q4H PRN IV SEVERE PAIN LEVEL 7-10 Last administered on 04/20/19at 12:34; Admin Dose 2 MG; Start 04/17/19 at 05:00 Diagnostic Test (Pha) (Accu-Chek) 1 ea 02 XX ; Start 04/18/19 at 02:00 Insulin Aspart (Novolog Insulin Pen) NOVOLOG *MILD* ALGORITHM WITH MEALS BEDTIME SC ; Start 04/17/19 at 08:00 Miscellaneous Information (Pending [facility] Order For Wound Care) This patient davis... PRN PRN XX WOUND CARE; Start 04/17/19 at 05:00 Miscellaneous Information 1 ea NOTE XX ; Start 04/17/19 at 05:30 Glucose (Glutose) 15 gm Q15M PRN PO DECREASED GLUCOSE; Start 04/17/19 at 05:30 Glucose (Glutose) 22.5 gm Q15M PRN PO DECREASED GLUCOSE; Start 04/17/19 at 05:30 Dextrose (D50w Syringe) 25 ml Q15M PRN IV DECREASED GLUCOSE; Start 04/17/19 at 05:30 Dextrose (D50w Syringe) 50 ml Q15M PRN IV DECREASED GLUCOSE; Start 04/17/19 at 05:30 Glucagon (Glucagen) 1 mg Q15M PRN IM DECREASED GLUCOSE; Start 04/17/19 at 05:30 Glucose (Glutose) 15 gm Q15M PRN BUCCAL DECREASED GLUCOSE; Start 04/17/19 at 05:30 Guaifenesin/ Codeine Phosphate (Robitussin Ac Liquid Cup) 5 ml TID PO Last administered on 04/19/19 21:22; Admin Dose 5 ML; Start 04/17/19 at 09:00 Bisacodyl (Dulcolax Supp) 10 mg DAILY PRN [place] CONSTIPATION Last administered on 04/19/19 05:04; Admin Dose 10 MG; Start 04/17/19 at 10:00 Lubiprostone (Amitiza) 24 mcg BID PO Last administered on 04/19/19 21:22; Admin Dose 24 MCG; Start 04/17/19 at 12:00 Heparin Sodium (Porcine) (Heparin (1000 Units/ml)) 4,000 unit AFTER DIALYSIS CATHETER Last administered on 04/18/19 21:31; Admin Dose 3,700 UNIT; Start 04/17/19 at 12:00 Vancomycin HCl (Vanco Iv Per Pharmacy) VANCOMYCIN PER PHARMACY PER PROTOCOL XX ; Start 04/17/19 at 16:00 Meropenem/Sodium Chloride 50 ml @ 100 mls/hr Q12 IVPB Last administered on 04/20/19 08:56; Admin Dose 100 MLS/HR; Start 04/17/19 at 21:00 Tramadol HCl (Ultram) 50 mg Q6H PRN PO MODERATE PAIN LEVEL 4-6 Last administered on 04/19/19 09:37; Admin Dose 50 MG; Start 04/18/19 at 11:00 Hydromorphone HCl (Dilaudid) 4 mg Q6H PRN PO PAIN 7-10/10; Start 04/18/19 at 11:30 Povidone Iodine (Povidone-Iodine) 1 applic DAILY TOP Last administered on 04/20/19 08:59; Admin Dose 1 APPLIC; Start 04/18/19 at 13:00 Pantoprazole (Protonix Tab) 40 mg BID@0600,1800 PO Last administered on 04/19/19 18:05; Admin Dose 40 MG; Start 04/18/19 at 18:00 Albumin Human 100 ml @ 100 mls/hr WITH DIALYSIS PRN IV SBP <90 DURING DIALYSIS Last administered on 04/18/19 18:56; Admin Dose 100 MLS/HR; Start 04/18/19 at 15:00 Sodium Hypochlorite (Dakins Diluted (1/40)) 1 applic TID TP Last administered on 04/20/19at 08:58; Admin Dose 1 APPLIC; Start 04/18/19 at 21:00 Zolpidem Tartrate (Ambien) 5 mg HS PRN PO INSOMNIA Last administered on 04/19/19at 02:40; Admin Dose 5 MG; Start 04/19/19 at 03:00 Metoclopramide HCl (Reglan) 5 mg Q6 IV Last administered on 04/20/19at 05:52; Admin Dose 5 MG; Start 04/19/19 at 18:00 Albumin Human 100 ml @ 100 mls/hr ONCE ONCE IV Last administered on 04/20/19at 11:17; Admin Dose 100 MLS/HR; Start 04/20/19 at 12:30; Stop 04/20/19 at 13:29 Norepinephrine 250 ml @ 1.875 mls/ hr TITRATE IV ; Start 04/20/19 at 12:30 Amiodarone HCl 900 mg/Dextrose 500 ml @ 33.33 mls/ hr Q15H1M IV ; Start 04/20/19 at 13:30; Stop 04/21/19 at 13:29 KENYN TERRAZAS April 20, 2019 13:06
[2019-04-20] MEDS: AMIODARONE 900 MG in DEXTROSE 5% 482 ML IV SCH (13:56)
--- NOTE | 2019-04-20 14:44 | CONS ---
Assessment/Plan Assessment/Plan Assessment/Plan (Daily) Bilateral foot gangrene diabetic ulcers PAD DM2 with peripheral neuropathy Charcot neuroarthropathy CAD ESRD on HD Hx of a-fib Plan Patient scheduled surgical intervention for bilateral foot debridement and possible L digit amputation of 3rd-5th for Wednesday. Discussed with primary team and they will reassess in tomorrow if cleared for procedure tomorrow. For now patient will remain scheduled for surgery tomorrow. Patient was previously optimized from vascular standpoint with Dr. Lemus on 03/31/19 with patent anterior tibial arteries, and right posterior tibial artery angioplasty. Continue with IV abx per recommendations. X-rays and MRI ordered of bilateral feet. Remain non weight bearing to bilateral feet. Wound cultures showing gram negative rods. Consultation Date/Type/Reason Admit Date/Time April 17, 2019 at 00:03 Initial Consult Date 04/20/19 Requesting Provider: ALONZO KNOWLES MD Date/Time of Note DATE: 04/20/19 TIME: 14:43 24 HR Interval Summary Free Text/Dictation Patient became hypotensive after EGD procedure and was transferred to ICU Exam/Review of Systems Exam Vitals Vital Signs Date Temp Pulse Resp B/P (MAP) Pulse Ox O2 O2 Flow FiO2 Time Delivery Rate 04/20/19 114 20 87/56 (66) 96 14:15 04/20/19 Nasal 2.0 14:00 Cannula 04/20/19 98.7 12:00 04/17/19 28 20:29 Intake and Output 04/19/19 04/19/19 04/20/19 1515:00 23:00 07:00 IntakeIntake Total 530 ml 780 ml BalanceBalance 530 ml 780 ml Exam DP pulses and PT pulses weakly palpable Absent protective sensations Bilateral gangrenous heel ulcers measuring 5 x 5cm with indeterminate depth. The ulcers feel boggy and mild seropurulent drainage can be appreciated to the periphery of the wound bed Left foot digits 3-5 with gangrene and plantar forefoot gangrene extending from the aforementioned digits Right foot with hallux amputation noted Mild pain on palpation to gangrene sites. Foul odor appreciated to the gangrenous wounds Results Result Diagram: 04/19/19 0440 04/19/19 0440 Results 24hrs Laboratory Tests Test 04/19/19 17:58 04/19/19 21:28 04/20/19 05:28 04/20/19 08:55 Bedside Glucose 124 137 107 Prothrombin Time 21.8 #H Prothrombin Time 1.7 Ratio INR International 1.89 Normalized Ratio Test 04/20/19 09:21 04/20/19 13:55 Bedside Glucose 111 92 Medications Medication Current Medications Acetaminophen (Tylenol Tab) 650 mg Q4H PRN PO FOR FEVER; Start 04/17/19 at 05:00 Albuterol (Proventil 0.083% (Neb)) 2.5 mg Q4H RESP THERAPY PRN NEB WHEEZING AND SOB; Start 04/17/19 at 05:00 Atorvastatin Calcium (Lipitor) 20 mg QHS PO Last administered on 04/19/19 21:21; Admin Dose 20 MG; Start 04/17/19 at 21:00 Benzonatate (Tessalon) 100 mg Q6 PRN PO COUGH; Start 04/17/19 at 05:00 Bisacodyl (Dulcolax) 5 mg BID PO Last administered on 04/19/19 21:21; Admin Dose 5 MG; Start 04/17/19 at 09:00 Folic Acid (Folic Acid) 1 mg DAILY PO Last administered on 04/19/19 08:13; Admin Dose 1 MG; Start 04/17/19 at 09:00 Gabapentin (Neurontin) 300 mg TID PO Last administered on 04/19/19 21:21; Admin Dose 300 MG; Start 04/17/19 at 09:00 Albuterol/ Ipratropium (Duoneb) 3 ml Q4H RESP THERAPY INH Last administered on 04/20/19 05:21; Admin Dose 3 ML; Start 04/17/19 at 05:00 Multivit/Ca Carb/ B Cmplx/FA/Prenat (Suzie-Paula) 1 tab DAILY PO Last a dministered on 04/19/19 08:14; Admin Dose 1 TAB; Start 04/17/19 at 09:00 Ondansetron HCl (Zofran Tab) 4 mg Q6H PRN PO NAUSEA AND/OR VOMITING; Start 04/17/19 at 05:00 Polyethylene Glycol (Miralax) 17 gm DAILY PO Last administered on 04/19/19 08:15; Admin Dose 17 GM; Start 04/17/19 at 09:00 Morphine Sulfate (morphine) 2 mg Q4H PRN IV SEVERE PAIN LEVEL 7-10 Last administered on 04/20/19at 12:34; Admin Dose 2 MG; Start 04/17/19 at 05:00 Diagnostic Test (Pha) (Accu-Chek) 1 ea 02 XX ; Start 04/18/19 at 02:00 Insulin Aspart (Novolog Insulin Pen) NOVOLOG *MILD* ALGORITHM WITH MEALS BEDTIME SC ; Start 04/17/19 at 08:00 Miscellaneous Information (Pending [facility] Order For Wound Care) This patient davis... PRN PRN XX WOUND CARE; Start 04/17/19 at 05:00 Miscellaneous Information 1 ea NOTE XX ; Start 04/17/19 at 05:30 Glucose (Glutose) 15 gm Q15M PRN PO DECREASED GLUCOSE; Start 04/17/19 at 05:30 Glucose (Glutose) 22.5 gm Q15M PRN PO DECREASED GLUCOSE; Start 04/17/19 at 05:30 Dextrose (D50w Syringe) 25 ml Q15M PRN IV DECREASED GLUCOSE; Start 04/17/19 at 05:30 Dextrose (D50w Syringe) 50 ml Q15M PRN IV DECREASED GLUCOSE; Start 04/17/19 at 05:30 Glucagon (Glucagen) 1 mg Q15M PRN IM DECREASED GLUCOSE; Start 04/17/19 at 05:30 Glucose (Glutose) 15 gm Q15M PRN BUCCAL DECREASED GLUCOSE; Start 04/17/19 at 05:30 Guaifenesin/ Codeine Phosphate (Robitussin Ac Liquid Cup) 5 ml TID PO Last administered on 04/19/19at 21:22; Admin Dose 5 ML; Start 04/17/19 at 09:00 Bisacodyl (Dulcolax Supp) 10 mg DAILY PRN [place] CONSTIPATION Last administered on 04/19/19at 05:04; Admin Dose 10 MG; Start 04/17/19 at 10:00 Lubiprostone (Amitiza) 24 mcg BID PO Last administered on 04/19/19at 21:22; Admin Dose 24 MCG; Start 04/17/19 at 12:00 Heparin Sodium (Porcine) (Heparin (1000 Units/ml)) 4,000 unit AFTER DIALYSIS CATHETER Last administered on 04/18/19at 21:31; Admin Dose 3,700 UNIT; Start 04/17/19 at 12:00 Vancomycin HCl (Vanco Iv Per Pharmacy) VANCOMYCIN PER PHARMACY PER PROTOCOL XX ; Start 04/17/19 at 16:00 Meropenem/Sodium Chloride 50 ml @ 100 mls/hr Q12 IVPB Last administered on 04/20/19 08:56; Admin Dose 100 MLS/HR; Start 04/17/19 at 21:00 Tramadol HCl (Ultram) 50 mg Q6H PRN PO MODERATE PAIN LEVEL 4-6 Last administered on 04/19/19 09:37; Admin Dose 50 MG; Start 04/18/19 at 11:00 Hydromorphone HCl (Dilaudid) 4 mg Q6H PRN PO PAIN 7-10/10; Start 04/18/19 at 11:30 Povidone Iodine (Povidone-Iodine) 1 applic DAILY TOP Last administered on 04/20/19 08:59; Admin Dose 1 APPLIC; Start 04/18/19 at 13:00 Pantoprazole (Protonix Tab) 40 mg BID@0600,1800 PO Last administered on 04/19/19 18:05; Admin Dose 40 MG; Start 04/18/19 at 18:00 Albumin Human 100 ml @ 100 mls/hr WITH DIALYSIS PRN IV SBP <90 DURING DIALYSIS Last administered on 04/18/19 18:56; Admin Dose 100 MLS/HR; Start 04/18/19 at 15:00 Sodium Hypochlorite (Dakins Diluted ()) 1 applic TID TP Last administered on 04/20/19 13:57; Admin Dose 1 APPLIC; Start 04/18/19 at 21:00 Zolpidem Tartrate (Ambien) 5 mg HS PRN PO INSOMNIA Last administered on 04/19/19 02:40; Admin Dose 5 MG; Start 04/19/19 at 03:00 Metoclopramide HCl (Reglan) 5 mg Q6 IV Last administered on 04/20/19 13:56; Admin Dose 5 MG; Start 04/19/19 at 18:00 Norepinephrine 250 ml @ 1.875 mls/ hr TITRATE IV ; Start 04/20/19 at 12:30 Amiodarone HCl 900 mg/Dextrose 500 ml @ 33.33 mls/ hr Q15H1M IV Last administered on 04/20/19 13:56; Admin Dose 33.33 MLS/HR; Start 04/20/19 at 13:30; Stop 04/21/19 at 13:29 ISAIAS ZARATE DPM April 20, 2019 14:44
[2019-04-20] MEDS: DIGOXIN 500 MCG INJ IV SCH (18:29)
[2019-04-20] MEDS: ATORVASTATIN 20 MG TAB PO SCH (20:12)
--- NOTE | 2019-04-20 20:52 | CONS ---
DATE OF ADMISSION: 04/17/2019 DATE OF CONSULTATION: 04/20/2019 TYPE OF CONSULTATION: Cardiology. REASON FOR CONSULTATION: Atrial fibrillation as well as hypertension. REQUESTING PHYSICIAN: Virginia Gonzalez MD HISTORY OF PRESENT ILLNESS: Ms. Sprague is a very pleasant 63-year-old female with a history of end-s tage renal disease, hemodialysis, diabetes mellitus, hypertension, dyslipidemia, peripheral arterial disease, chronic atrial fibrillation, lower extremity nonhealing foot wounds, gastroparesis, gastriti s, prior cholecystectomy, diabetes complicated by neuropathy, nephropathy, retinopathy, who initially presented with complaints of abdominal pain. Initially upon arrival, temperature was 98.1, pulse 89 , blood pressure 115/81, respiratory rate 19, satting 100%. The patient has abdominal CT that showed diffuse anasarca, small to moderate amount of ascites, severe left-sided hydronephrosis. The patien t has been consulted by the GI services, infectious disease service and today underwent EGD post-endo scopy. The patient was admitted to the PACU and was noted to be tachycardic in atrial fibrillation w ith portal hypertension to the 80s and now admitted to the ICU and therefore cardiology consultation has been requested. PAST MEDICAL HISTORY: As above in HPI. MEDICATIONS CURRENTLY IN HOSPITAL: 1. Amiodarone IV. 2. Reglan 5 mg IV q.6. 3. Ambien. 4. Protonix. 5. Albumin. 6. Tramadol. 7. Lipitor. 8. Meropenem. 9. Vancomycin. 10. Folic acid. 11. Gabapentin. 12. Suzie-Paula. 13. MiraLax. 14. Insulin. 15. Morphine p.r.n. 16. Zofran p.r.n. ALLERGIES: 1. CELEXA. 2. AMOXICILLIN. SOCIAL HISTORY: No current tobacco, EtOH or illicit drug use. FAMILY HISTORY: No history of sudden cardiac or early CAD. REVIEW OF SYSTEMS: As above in HPI. CONSTITUTIONAL: No current fevers, chills. PULMONARY: No current shortness of breath. CARDIOVASCULAR: Hypertension, atrial fibrillation. GASTROINTESTINAL: No vomiting. GENITOURINARY: No hematuria. MUSCULOSKELETAL: Degenerative joint disease. PSYCHIATRIC: No documented psych history. NEUROLOGIC: No documented history of CVA. ENDOCRINE: No documented diabetes mellitus. GENITOURINARY: Renal failure. PHYSICAL EXAMINATION: VITAL SIGNS: Temperature of 98.7, blood pressure 81/60, pulse 107, respiratory rate 12, satting 100% on 2 liters. GENERAL: The patient is alert, awake, in no acute distress. NECK: JVP is approximately 8 to 9 cm of water. CHEST: Fair movement throughout, mild decreased breath sounds at bases bilaterally. HEART: Irregularly irregular, I/ systolic murmur, nondisplaced PMI. ABDOMEN: Positive bowel sounds, soft. EXTREMITIES: Nonhealing lower extremity wounds. Difficult to palpate distal pulses bilateral line erector ior tibial. Status post prior transmetatarsal amputation. LABORATORY DATA: Most recently from 04/19/2019: Sodium 136, potassium 4.3, creatinine 3.8, BUN 23. White blood cell count 9.8, hemoglobin 11.4, platelet count 151. INR of 1.89. Tox screen random va ncomycin level of 9.5. IMAGING STUDIES: Chest x-ray from 04/16/2019: No acute cardiopulmonary disease. Abdominal pelvic C T: Diffuse anasarca, small to moderate volume ascites, left hydronephrosis, status post cholecystect phuc. Venous ultrasound is revealing no sign or evidence of DVT. Abdominal MRI is revealing excellen t study showing anasarca and ascites, marked left hydronephrosis. A foot x-ray is revealing no soft tissue air seen posterior to calcaneus ____ soft tissue ulcer. An ankle x-ray revealed soft tissue o f the posterior calcaneal tuberosity and plantar mid foot without definite osseous destruction, sever e pes planus and mid foot collapse suggesting Charcot neuropathy. ELECTROCARDIOGRAM: No EKG available for my review at this time. IMPRESSION: 1. Atrial fibrillation with rapid ventricular response. 2. Hypotension, borderline, not on pressors at this time. 3. Preoperative for lower extremity foot debridement. 4. End-stage renal disease, on hemodialysis. 5. Dyslipidemia. 6. Lower extremity nonhealing ulcerations. 7. Presumed peripheral arterial disease. 8. Coagulopathy. 9. Anemia. 10. Thrombocytopenia. RECOMMENDATIONS: 1. At this time, we would maintain the patient in the ICU on close monitoring. 2. We will give the patient digoxin on a partial load in order to improve overall heart rate control and continue the patient's amiodarone at this time. 3. The patient is not on Eliquis at this time and if to have foot surgery tomorrow likely to be held ____ and has a coagulopathy but likely should be resumed when possible for prevention of thromboembo lic complications of atrial fibrillation. 4. Check a 2D echo for reassessment of patient's ejection fraction, wall motion or rule out any sara r valve abnormalities due to the patient's upcoming surgery. 5. Check troponins to assure the patient has not had a recent coronary syndromes in anticipation of upcoming surgery. 6. We will check a baseline 12-lead EKG, repeat EKG in morning to assess for any significant abnorma lities and thereafter changes. 7. Continue the patient's antibiotics, follow up all culture data and continue local care. Thank you for allowing me to take part in the care of this patient. I will continue to follow her al amauri very closely with you with further recommendations to be made as the patient progressed through h er inpatient hospital clinical course. Dictated By: LOUIS ZAMAN/ABHIJIT Conf#: [id number] DID#: [id number] CC: LINDA FALL MD; ALONZO KNOWLES MD; VIRGINIA GONZALEZ;*EndCC*
[2019-04-20] MEDS: LORAZEPAM 2 MG INJ IV PRN (23:30)
[2019-04-21] VITALS (41 sets, daily range): BP systolic 13–119; BP diastolic 37–87; PULSE 87–124; RESP 6–23
[2019-04-21] MEDS: METOCLOPRAMIDE 10 MG INJ IV SCH ×5 (00:55→23:16)
[2019-04-21] MEDS: DIGOXIN 500 MCG INJ IV SCH ×3 (00:55→12:02)
[2019-04-21] MEDS: ALBUTEROL/IPRATROPIUM (NEB) 3 ML AMP INH SCH ×6 (01:02→20:16)
[2019-04-21] MEDS: LORAZEPAM 2 MG INJ IV PRN (01:34)
[2019-04-21] MEDS: ACCU-CHEK XX SCH (02:00)
[2019-04-21] MEDS: ALBUMIN HUMAN 25% 100 ML IV PRN (02:58)
[2019-04-21] MEDS: AMIODARONE 900 MG in DEXTROSE 5% 482 ML IV SCH (04:31)
[2019-04-21] MEDS: PANTOPRAZOLE (EC) 40 MG TAB PO SCH ×2 (05:20→17:20)
[2019-04-21] MEDS: HEPARIN 1000 UNITS/ML 10 ML INJ CATHETER SCH (06:12)
[2019-04-21] MEDS: INSULIN ASPART [NOVOLOG] 3 ML PEN SC SCH ×4 (07:35→20:12)
[2019-04-21] MEDS: FOLIC ACID 1 MG TAB PO SCH (08:03)
[2019-04-21] MEDS: LUBIPROSTONE 24 MCG CAP PO SCH ×2 (08:03→20:11)
[2019-04-21] MEDS: BISACODYL (EC) 5 MG TAB PO SCH ×2 (08:03→20:11)
[2019-04-21] MEDS: MULTIVIT/CA CARB/B CMPLX/FA TAB PO SCH (08:04)
[2019-04-21] MEDS: GUAIFENESIN/CODEINE 5ML CUP PO SCH ×3 (08:04→20:11)
[2019-04-21] MEDS: POLYETHYLENE GLYCOL 17 GM PACKET PO SCH (08:04)
[2019-04-21] MEDS: GABAPENTIN 300 MG CAP PO SCH ×3 (08:04→20:11)
[2019-04-21] MEDS: DAKINS 0.0125%(1/40) 473 ML SOLUTION TP SCH ×3 (08:06→20:12)
[2019-04-21] MEDS: POVIDONE IODINE 10% 28.4 GM OINT TOP SCH (08:06)
[2019-04-21] MEDS: BALSAM PERU/CASTOR OIL 60 GM TUBE TOP SCH ×2 (08:06→20:11)
[2019-04-21] MEDS: MEROPENEM 500MG/50 ML (PMX) 50 ML IVPB SCH (08:14)
[2019-04-21] MEDS: morphine 2 MG INJ IV PRN ×2 (09:48→15:32)
--- NOTE | 2019-04-21 11:47 | PN ---
DES TERRAZASA 04/21/19 1147: Date/Time of Note Date/Time of Note DATE: 04/21/19 TIME: 11:47 Assessment/Plan VTE Prophylaxis Risk score (from [facility] [place])>0 risk: 8 SCD applied (from [facility]): No SCD contraindicated: bilateral LE trauma Pharmacological prophylaxis: NA/contraindicated Pharm contraindication: anticoag not tolerated Lines/Catheters IV Catheter Type (from [facility]): permacath Urinary Cath still in place: No Assessment/Plan Hospital Course 1. Abdominal pain with some nausea. CT of the abdomen and pelvis showed severe left hydronephrosis, status post cholecystectomy. LFTs within normal limit except mildly elevated alkaline phosphatase. Lipase is 22. Likely secondary to constipation vs gastritis vs gastroparesis abdominal pain is still persistent. Versus choledocholithiasis 2. Severe left hydronephrosis secondary to UPJ junction, no urinary stone. probably chronic , no intervention per urology 3. Bilateral lower extremity ulcers with gangrene, followed by Dr. Schultz. 4. End-stage renal disease, on hemodialysis. 5. Hypotension, on dialysis. could be secondary to infected ulcers, hold bp meds 6. Diabetes. 7. Hypertension. 8. Peripheral vascular disease. 9. History of gastritis. 10. History of gastroparesis. 11. History of atrial fibrillation. 12 anasarca 13. Afib, RVR, controlled now, pt is on amiodarone drip 14. SIRS Assessment/Plan -start contact Isolation for VRE -strict BS control -c.e phos. binding agents -DVT prophylaxis is unable to impose due to anemia and expecting surgical interventions. -GI proph Protonix -pt is stable for surgery on feet, possible bilateral amputation -c/w HD -dr Flowers is for cardio -dr Coronado, podiatry consult is appreciated -ID per dr Webb Result Diagram: 04/21/19 0400 04/21/19 0400 Results 24hrs Laboratory Tests Test 04/20/19 13:55 04/20/19 17:40 04/20/19 17:41 04/20/19 20:54 Bedside Glucose 92 99 100 Creatine Kinase 25 Creatine Kinase 3.5 Index Creatinine Kinase MB 0.88 (Mass) Troponin I < 0.012 Test 04/21/19 04:00 04/21/19 07:49 04/21/19 10:13 White Blood Count 12.0 #H Red Blood Count 3.69 L Hemoglobin 11.2 L Hematocrit 34.6 L Mean Corpuscular 93.8 Volume Mean Corpuscular 30.4 Hemoglobin Mean Corpuscular 32.4 Hemoglobin Concent Red Cell 18.1 H Distribution Width Platelet Count 164 Mean Platelet Volume 10.9 H Immature 0.700 H Granulocytes % Neutrophils % 86.4 H Lymphocytes % 3.7 L Monocytes % 6.2 Eosinophils % 2.2 Basophils % 0.8 Nucleated Red Blood 0.0 Cells % Immature 0.090 H Granulocytes # Neutrophils # 10.4 H Lymphocytes # 0.5 L Monocytes # 0.8 Eosinophils # 0.3 Basophils # 0.1 Nucleated Red Blood 0.0 Cells # Sodium Level 136 Potassium Level 4.2 Chloride Level 98 Carbon Dioxide Level 25 Anion Gap 13 Blood Urea Nitrogen 24 H Creatinine 4.14 H Est Glomerular 11 L Filtrat Rate mL/min Glucose Level 90 Calcium Level 8.4 Phosphorus Level 3.6 Creatine Kinase 26 22 L Creatine Kinase 4.7 5.1 Index Creatinine Kinase MB 1.23 1.13 (Mass) Troponin I < 0.012 < 0.012 Triglycerides Level 57 Cholesterol Level < 50 L LDL Cholesterol, Calculated HDL Cholesterol 18 L Cholesterol/HDL Ratio Bedside Glucose 99 Subjective 24 Hr Interval Summary Free Text/Dictation pt is sleeping, she was given morphine earlier Exam/Review of Systems Exam Vitals Vital Signs Date Temp Pulse Resp B/P (MAP) Pulse Ox O2 O2 Flow FiO2 Time Delivery Rate 04/21/19 103 16 94/55 (68) 100 Nasal 10:00 Cannula 04/21/19 2.0 08:52 04/21/19 98.5 08:00 04/21/19 27 01:49 Intake and Output 04/20/19 04/20/19 04/21/19 1515:00 23:00 07:00 IntakeIntake Total 375.55 ml 233.33 ml 216.69 ml OutputOutput Total 0 ml 0 ml 3500 ml BalanceBalance 375.55 ml 233.33 ml -3283.31 ml Exam sleeping Head: normocephalic ENMT: nl external ears & nose Neck: supple Respiratory: diminished breath sounds Cardiovascular: regular rate and rhythm Gastrointestinal: soft Musculoskeletal: muscle weakness, swelling (bilateral feet) Additional Comments terrible smell from wounds Results Result Diagram: 04/21/19 0400 04/21/19 0400 Results 24hrs Laboratory Tests Test 04/20/19 13:55 04/20/19 17:40 04/20/19 17:41 04/20/19 20:54 Bedside Glucose 92 99 100 Creatine Kinase 25 Creatine Kinase 3.5 Index Creatinine Kinase MB 0.88 (Mass) Troponin I < 0.012 Test 04/21/19 04:00 04/21/19 07:49 04/21/19 10:13 White Blood Count 12.0 #H Red Blood Count 3.69 L Hemoglobin 11.2 L Hematocrit 34.6 L Mean Corpuscular 93.8 Volume Mean Corpuscular 30.4 Hemoglobin Mean Corpuscular 32.4 Hemoglobin Concent Red Cell 18.1 H Distribution Width Platelet Count 164 Mean Platelet Volume 10.9 H Immature 0.700 H Granulocytes % Neutrophils % 86.4 H Lymphocytes % 3.7 L Monocytes % 6.2 Eosinophils % 2.2 Basophils % 0.8 Nucleated Red Blood 0.0 Cells % Immature 0.090 H Granulocytes # Neutrophils # 10.4 H Lymphocytes # 0.5 L Monocytes # 0.8 Eosinophils # 0.3 Basophils # 0.1 Nucleated Red Blood 0.0 Cells # Sodium Level 136 Potassium Level 4.2 Chloride Level 98 Carbon Dioxide Level 25 Anion Gap 13 Blood Urea Nitrogen 24 H Creatinine 4.14 H Est Glomerular 11 L Filtrat Rate mL/min Glucose Level 90 Calcium Level 8.4 Phosphorus Level 3.6 Creatine Kinase 26 22 L Creatine Kinase 4.7 5.1 Index Creatinine Kinase MB 1.23 1.13 (Mass) Troponin I < 0.012 < 0.012 Triglycerides Level 57 Cholesterol Level < 50 L LDL Cholesterol, Calculated HDL Cholesterol 18 L Cholesterol/HDL Ratio Bedside Glucose 99 Medications Medication Current Medications Acetaminophen (Tylenol Tab) 650 mg Q4H PRN PO FOR FEVER; Start 04/17/19 at 05:00 Albuterol (Proventil 0.083% (Neb)) 2.5 mg Q4H RESP THERAPY PRN NEB WHEEZING AND SOB; Start 04/17/19 at 05:00 Atorvastatin Calcium (Lipitor) 20 mg QHS PO Last administered on 04/19/19at 21:21; Admin Dose 20 MG; Start 04/17/19 at 21:00 Benzonatate (Tessalon) 100 mg Q6 PRN PO COUGH; Start 04/17/19 at 05:00 Bisacodyl (Dulcolax) 5 mg BID PO Last administered on 04/19/19 21:21; Admin Dose 5 MG; Start 04/17/19 at 09:00 Folic Acid (Folic Acid) 1 mg DAILY PO Last administered on 04/19/19at 08:13; Admin Dose 1 MG; Start 04/17/19 at 09:00 Gabapentin (Neurontin) 300 mg TID PO Last administered on 04/19/19at 21:21; Admin Dose 300 MG; Start 04/17/19 at 09:00 Albuterol/ Ipratropium (Duoneb) 3 ml Q4H RESP THERAPY INH Last administered on 04/21/19 08:52; Admin Dose 3 ML; Start 04/17/19 at 05:00 Multivit/Ca Carb/ B Cmplx/FA/Prenat (Suzie-Paula) 1 tab DAILY PO Last administered on 04/19/19 08:14; Admin Dose 1 TAB; Start 04/17/19 at 09:00 Ondansetron HCl (Zofran Tab) 4 mg Q6H PRN PO NAUSEA AND/OR VOMITING; Start 04/17/19 at 05:00 Polyethylene Glycol (Miralax) 17 gm DAILY PO Last administered on 04/19/19 08:15; Admin Dose 17 GM; Start 04/17/19 at 09:00 Morphine Sulfate (morphine) 2 mg Q4H PRN IV SEVERE PAIN LEVEL 7-10 Last administered on 04/21/19 09:48; Admin Dose 2 MG; Start 04/17/19 at 05:00 Diagnostic Test (Pha) (Accu-Chek) 1 ea 02 XX ; Start 04/18/19 at 02:00 Insulin Aspart (Novolog Insulin Pen) NOVOLOG *MILD* ALGORITHM WITH MEALS BEDTIME SC ; Start 04/17/19 at 08:00 Miscellaneous Information (Pending [facility] Order For Wound Care) This patient davis... PRN PRN XX WOUND CARE; Start 04/17/19 at 05:00 Miscellaneous Information 1 ea NOTE XX ; Start 04/17/19 at 05:30 Glucose (Glutose) 15 gm Q15M PRN PO DECREASED GLUCOSE; Start 04/17/19 at 05:30 Glucose (Glutose) 22.5 gm Q15M PRN PO DECREASED GLUCOSE; Start 04/17/19 at 05:30 Dextrose (D50w Syringe) 25 ml Q15M PRN IV DECREASED GLUCOSE; Start 04/17/19 at 05:30 Dextrose (D50w Syringe) 50 ml Q15M PRN IV DECREASED GLUCOSE; Start 04/17/19 at 05:30 Glucagon (Glucagen) 1 mg Q15M PRN IM DECREASED GLUCOSE; Start 04/17/19 at 05:30 Glucose (Glutose) 15 gm Q15M PRN BUCCAL DECREASED GLUCOSE; Start 04/17/19 at 05:30 Guaifenesin/ Codeine Phosphate (Robitussin Ac Liquid Cup) 5 ml TID PO Last adm inistered on 04/19/19 21:22; Admin Dose 5 ML; Start 04/17/19 at 09:00 Bisacodyl (Dulcolax Supp) 10 mg DAILY PRN GA CONSTIPATION Last administered on 04/19/19 05:04; Admin Dose 10 MG; Start 04/17/19 at 10:00 Lubiprostone (Amitiza) 24 mcg BID PO Last administered on 04/19/19 21:22; Admin Dose 24 MCG; Start 04/17/19 at 12:00 Heparin Sodium (Porcine) (Heparin (1000 Units/ml)) 4,000 unit AFTER DIALYSIS CATHETER Last administered on 04/21/19 06:12; Admin Dose 3,700 UNIT; Start 04/17/19 at 12:00 Vancomycin HCl (Vanco Iv Per Pharmacy) VANCOMYCIN PER PHARMACY PER PROTOCOL XX ; Start 04/17/19 at 16:00 Meropenem/Sodium Chloride 50 ml @ 100 mls/hr Q12 IVPB Last administered on 04/21/19 08:14; Admin Dose 100 MLS/HR; Start 04/17/19 at 21:00 Tramadol HCl (Ultram) 50 mg Q6H PRN PO MODERATE PAIN LEVEL 4-6 Last administered on 04/19/19 09:37; Admin Dose 50 MG; Start 04/18/19 at 11:00 Hydromorphone HCl (Dilaudid) 4 mg Q6H PRN PO PAIN 7-10/10; Start 04/18/19 at 11:30 Povidone Iodine (Povidone-Iodine) 1 applic DAILY TOP Last administered on 04/20/19 08:59; Admin Dose 1 APPLIC; Start 04/18/19 at 13:00 Pantoprazole (Protonix Tab) 40 mg BID@0600,1800 PO Last administered on 04/19/19at 18:05; Admin Dose 40 MG; Start 04/18/19 at 18:00 Albumin Human 100 ml @ 100 mls/hr WITH DIALYSIS PRN IV SBP <90 DURING DIALYSIS Last administered on 04/21/19 02:58; Admin Dose 100 MLS/HR; Start 04/18/19 at 15:00 Sodium Hypochlorite (Dakins Diluted ()) 1 applic TID TP Last administered on 04/20/19 21:01; Admin Dose 1 APPLIC; Start 04/18/19 at 21:00 Zolpidem Tartrate (Ambien) 5 mg HS PRN PO INSOMNIA Last administered on 04/19/19 02:40; Admin Dose 5 MG; Start 04/19/19 at 03:00 Metoclopramide HCl (Reglan) 5 mg Q6 IV Last administered on 04/21/19at 06:13; Admin Dose 5 MG; Start 04/19/19 at 18:00 Amiodarone HCl 900 mg/Dextrose 500 ml @ 33.33 mls/ hr Q15H1M IV Last administered on 04/20/19at 13:56; Admin Dose 33.33 MLS/HR; Start 04/20/19 at 13:30; Stop 04/21/19 at 13:29 Lorazepam (Ativan) 0.5 mg Q6H PRN IV AGITATION/ANXIETY Last administered on 04/20/19at 23:30; Admin Dose 0.5 MG; Start 04/20/19 at 17:30 Phenylephrine HCl 40 mg/Dextrose 250 ml @ 37.5 mls/hr TITRATE IV ; Start 04/20/19 at 19:00 Digoxin (Digoxin) 250 mcg Q6 IV Last administered on 04/21/19 06:14; Admin Dose 250 MCG; Start 04/20/19 at 18:00 JACOB GONZALEZ MD 04/21/19 2128: Assessment/Plan Assessment/Plan Assessment/Plan amio gtt for afib bp better surgery today hd on wednesday jose Result Diagram: 04/21/190 04/21/190 KENNY TERRAZAS April 21, 2019 11:47 JACOB GONZALEZ MD April 21, 2019 15:57
--- NOTE | 2019-04-21 12:27 | HPN ---
Date/Time of Note Date/Time of Note DATE: 04/21/19 TIME: 12:27 Interval H&P Admission Note Pt. seen H&P reviewed: No system changes ISAIAS ZARATE DPM April 21, 2019 12:27
--- NOTE | 2019-04-21 12:33 | CONS ---
Assessment/Plan Assessment/Plan Hospital Course (Demo Recall) IMPRESSION: 1. Atrial fibrillation-now rate controloled s/p digoxin IVP and on amio 2. Hypotension, borderline, not on pressors at this time. 3. Preoperative for lower extremity foot debridement.-Echo EF 60-65/no sig valve abnl/Neg trop x 2 4. End-stage renal disease, on hemodialysis. 5. Dyslipidemia. 6. Lower extremity nonhealing ulcerations. 7. Presumed peripheral arterial disease. 8. Coagulopathy. 9. Anemia. 10. Thrombocytopenia-slowly improving. Recc: -Tel -serial ecg's -Continue statin -Contineu abx's and f/u cx data -Continue amio IV with transition to PO amio -As long as BP remains stable ok to proceed to surgery at moderate cv risk Consultation Date/Type/Reason Admit Date/Time April 17, 2019 at 00:03 Initial Consult Date 04/20/19 Type of Consult Cardiology Reason for Consultation AF Requesting Provider: ALONZO KNOWLES MD Date/Time of Note DATE: 04/21/19 TIME: 12:28 Exam/Review of Systems Vital Signs Vitals Vital Signs Date Temp Pulse Resp B/P (MAP) Pulse Ox O2 O2 Flow FiO2 Time Delivery Rate 04/21/19 91 12:00 04/21/19 16 94/55 (68) 100 Nasal 10:00 Cannula 04/21/19 2.0 08:52 04/21/19 98.5 08:00 04/21/19 27 01:49 Intake and Output 04/20/19 04/20/19 04/21/19 1515:00 23:00 07:00 IntakeIntake Total 375.55 ml 233.33 ml 216.69 ml OutputOutput Total 0 ml 0 ml 3500 ml BalanceBalance 375.55 ml 233.33 ml -3283.31 ml Exam Exam Review of Systems: CONSTITUTIONAL: No fevers, chills. PULMONARY: No sob CARDIOVASCULAR: No chest pain/palpitations GASTROINTESTINAL: No nausea/vomiting. GENITOURINARY: No hematuria/dysuria. MUSCULOSKELETAL: No myagias/arthalgias. PSYCHIATRIC: The patient denies depression. NEUROLOGIC: lethargic somewhat Constitutional: alert, oriented Psych: no complaints Head: normocephalic ENMT: mucosa pink and moist Neck: supple, jvd (9 cm water) Respiratory: diminished breath sounds (at bases/B) Cardiovascular: irregular rhythm Gastrointestinal: soft, non-tender Musculoskeletal: muscle tone (normal) Extremities: edema (trace/B with thickenening of skin and feet covered by dressing) Labs Result Diagram: 04/21/19 0400 04/21/19 0400 Results 24hrs Laboratory Tests Test 04/20/19 13:55 04/20/19 17:40 04/20/19 17:41 04/20/19 20:54 Bedside Glucose 92 99 100 Creatine Kinase 25 Creatine Kinase 3.5 Index Creatinine Kinase MB 0.88 (Mass) Troponin I < 0.012 Test 04/21/19 04:00 04/21/19 07:49 04/21/19 10:13 White Blood Count 12.0 #H Red Blood Count 3.69 L Hemoglobin 11.2 L Hematocrit 34.6 L Mean Corpuscular 93.8 Volume Mean Corpuscular 30.4 Hemoglobin Mean Corpuscular 32.4 Hemoglobin Concent Red Cell 18.1 H Distribution Width Platelet Count 164 Mean Platelet Volume 10.9 H Immature 0.700 H Granulocytes % Neutrophils % 86.4 H Lymphocytes % 3.7 L Monocytes % 6.2 Eosinophils % 2.2 Basophils % 0.8 Nucleated Red Blood 0.0 Cells % Immature 0.090 H Granulocytes # Neutrophils # 10.4 H Lymphocytes # 0.5 L Monocytes # 0.8 Eosinophils # 0.3 Basophils # 0.1 Nucleated Red Blood 0.0 Cells # Sodium Level 136 Potassium Level 4.2 Chloride Level 98 Carbon Dioxide Level 25 Anion Gap 13 Blood Urea Nitrogen 24 H Creatinine 4.14 H Est Glomerular 11 L Filtrat Rate mL/min Glucose Level 90 Calcium Level 8.4 Phosphorus Level 3.6 Creatine Kinase 26 22 L Creatine Kinase 4.7 5.1 Index Creatinine Kinase MB 1.23 1.13 (Mass) Troponin I < 0.012 < 0.012 Triglycerides Level 57 Cholesterol Level < 50 L LDL Cholesterol, Calculated HDL Cholesterol 18 L Cholesterol/HDL Ratio Bedside Glucose 99 Medications Medications Current Medications Acetaminophen (Tylenol Tab) 650 mg Q4H PRN PO FOR FEVER; Start 04/17/19 at 05:00 Albuterol (Proventil 0.083% (Neb)) 2.5 mg Q4H RESP THERAPY PRN NEB WHEEZING AND SOB; Start 04/17/19 at 05:00 Atorvastatin Calcium (Lipitor) 20 mg QHS PO Last administered on 04/19/19 21:21; Admin Dose 20 MG; Start 04/17/19 at 21:00 Benzonatate (Tessalon) 100 mg Q6 PRN PO COUGH; Start 04/17/19 at 05:00 Bisacodyl (Dulcolax) 5 mg BID PO Last administered on 04/19/19 21:21; Admin Dose 5 MG; Start 04/17/19 at 09:00 Folic Acid (Folic Acid) 1 mg DAILY PO Last administered on 04/19/19 08:13; Admin Dose 1 MG; Start 04/17/19 at 09:00 Gabapentin (Neurontin) 300 mg TID PO Last administered on 04/19/19 21:21; Admin Dose 300 MG; Start 04/17/19 at 09:00 Albuterol/ Ipratropium (Duoneb) 3 ml Q4H RESP THERAPY INH Last administered on 04/21/19 08:52; Admin Dose 3 ML; Start 04/17/19 at 05:00 Multivit/Ca Carb/ B Cmplx/FA/Prenat (Suzie-Paula) 1 tab DAILY PO Last administered on 04/19/19 08:14; Admin Dose 1 TAB; Start 04/17/19 at 09:00 Ondansetron HCl (Zofran Tab) 4 mg Q6H PRN PO NAUSEA AND/OR VOMITING; Start 04/17/19 at 05:00 Polyethylene Glycol (Miralax) 17 gm DAILY PO Last administered on 04/19/19 08:15; Admin Dose 17 GM; Start 04/17/19 at 09:00 Morphine Sulfate (morphine) 2 mg Q4H PRN IV SEVERE PAIN LEVEL 7-10 Last administered on 04/21/19 09:48; Admin Dose 2 MG; Start 04/17/19 at 05:00 Diagnostic Test (Pha) (Accu-Chek) 1 ea 02 XX ; Start 04/18/19 at 02:00 Insulin Aspart (Novolog Insulin Pen) NOVOLOG *MILD* ALGORITHM WITH MEALS BE DTIME SC ; Start 04/17/19 at 08:00 Miscellaneous Information (Pending [facility] Order For Wound Care) This patient davis... PRN PRN XX WOUND CARE; Start 04/17/19 at 05:00 Miscellaneous Information 1 ea NOTE XX ; Start 04/17/19 at 05:30 Glucose (Glutose) 15 gm Q15M PRN PO DECREASED GLUCOSE; Start 04/17/19 at 05:30 Glucose (Glutose) 22.5 gm Q15M PRN PO DECREASED GLUCOSE; Start 04/17/19 at 05:30 Dextrose (D50w Syringe) 25 ml Q15M PRN IV DECREASED GLUCOSE; Start 04/17/19 at 05:30 Dextrose (D50w Syringe) 50 ml Q15M PRN IV DECREASED GLUCOSE; Start 04/17/19 at 05:30 Glucagon (Glucagen) 1 mg Q15M PRN IM DECREASED GLUCOSE; Start 04/17/19 at 05:30 Glucose (Glutose) 15 gm Q15M PRN BUCCAL DECREASED GLUCOSE; Start 04/17/19 at 05:30 Guaifenesin/ Codeine Phosphate (Robitussin Ac Liquid Cup) 5 ml TID PO Last administered on 04/19/19at 21:22; Admin Dose 5 ML; Start 04/17/19 at 09:00 Bisacodyl (Dulcolax Supp) 10 mg DAILY PRN [place] CONSTIPATION Last administered on 04/19/19at 05:04; Admin Dose 10 MG; Start 04/17/19 at 10:00 Lubiprostone (Amitiza) 24 mcg BID PO Last administered on 04/19/19at 21:22; Admin Dose 24 MCG; Start 04/17/19 at 12:00 Heparin Sodium (Porcine) (Heparin (1000 Units/ml)) 4,000 unit AFTER DIALYSIS CATHETER Last administered on 04/21/19at 06:12; Admin Dose 3,700 UNIT; Start 04/17/19 at 12:00 Vancomycin HCl (Vanco Iv Per Pharmacy) VANCOMYCIN PER PHARMACY PER PROTOCOL XX ; Start 04/17/19 at 16:00 Meropenem/Sodium Chloride 50 ml @ 100 mls/hr Q12 IVPB Last administered on 04/21/19at 08:14; Admin Dose 100 MLS/HR; Start 04/17/19 at 21:00 Tramadol HCl (Ultram) 50 mg Q6H PRN PO MODERATE PAIN LEVEL 4-6 Last administered on 04/19/19at 09:37; Admin Dose 50 MG; Start 04/18/19 at 11:00 Hydromorphone HCl (Dilaudid) 4 mg Q6H PRN PO PAIN 7-10/10; Start 04/18/19 at 11:30 Povidone Iodine (Povidone-Iodine) 1 applic DAILY TOP Last administered on 04/20/19 08:59; Admin Dose 1 APPLIC; Start 04/18/19 at 13:00 Pantoprazole (Protonix Tab) 40 mg BID@0600,1800 PO Last administered on at 18:05; Admin Dose 40 MG; Start 04/18/19 at 18:00 Albumin Human 100 ml @ 100 mls/hr WITH DIALYSIS PRN IV SBP <90 DURING DIALYSIS Last administered on 04/21/19 02:58; Admin Dose 100 MLS/HR; Start 04/18/19 at 15:00 Sodium Hypochlorite (Dakins Diluted ()) 1 applic TID TP Last administered o n 04/20/19 21:01; Admin Dose 1 APPLIC; Start 04/18/19 at 21:00 Zolpidem Tartrate (Ambien) 5 mg HS PRN PO INSOMNIA Last administered on 04/19/19 02:40; Admin Dose 5 MG; Start 04/19/19 at 03:00 Metoclopramide HCl (Reglan) 5 mg Q6 IV Last administered on 04/21/19 12:02; Admin Dose 5 MG; Start 04/19/19 at 18:00 Amiodarone HCl 900 mg/Dextrose 500 ml @ 33.33 mls/ hr Q15H1M IV Last administered on 04/20/19 13:56; Admin Dose 33.33 MLS/HR; Start 04/20/19 at 13:30; Stop 04/21/19 at 13:29 Lorazepam (Ativan) 0.5 mg Q6H PRN IV AGITATION/ANXIETY Last administered on 04/20/19 23:30; Admin Dose 0.5 MG; Start 04/20/19 at 17:30 Phenylephrine HCl 40 mg/Dextrose 250 ml @ 37.5 mls/hr TITRATE IV ; Start 04/20/19 at 19:00 LOUIS COLLIER April 21, 2019 12:33
--- NOTE | 2019-04-21 13:18 | CONS ---
Assessment/Plan Assessment/Plan Hospital Course (Demo Recall) No acute changes overnight patient laying comfortably in bed no fevers she is on amiodarone drip WBC is 12 H&H 11.2 and 34.6 platelets 164 neutrophils 86.4 Microbiology: Left foot wound culture grew E. coli, Morganella, staph aureus, VRE MRI of right ankle revealed suspicion for early osteomyelitis of the posterior calcaneus. MRI of left ankle revealed severe midfoot arthrosis with associated midfoot collapse with erosive changes at the base of the subluxed cuboid without increased signal to suggest acute osteomyelitis. Please see full report in the chart Antimicrobials: Meropenem vancomycin Indwelling: Right chest permacath. Allergy: Amoxicillin Physical examination: This is a wasted obese well-developed fragile elderly woman who is awake in no distress. Head atraumatic normocephalic. Neck is supple. Chest rise symmetrical breath sounds diminished bases. Heart: S1-S2. Abdomen soft bowel sounds present. Extremities with bilateral lower extremities gangrene Assessment: 1. Sepsis 2. Bilateral lower extremities gangrene/OM 3. End-stage renal disease 4. Peripheral arterial disease, status post right posterior tibial artery angioplasty 03/01/19 5. Diabetes 6. Failure to thrive 7. Afib w/RVR Plan: Patient remains unchanged we will change vancomycin to Zyvox, change meropenem to gentamicin, follow podiatry recommendation. Pending debridement possible left digit amputation Consultation Date/Type/Reason Admit Date/Time April 17, 2019 at 00:03 Initial Consult Date 04/17/19 Type of Consult id Requesting Provider: ALONZO KNOWLES MD Date/Time of Note DATE: 04/21/19 TIME: 13:15 Exam/Review of Systems Exam Vitals Vital Signs Date Temp Pulse Resp B/P (MAP) Pulse Ox O2 O2 Flow FiO2 Time Delivery Rate 04/21/19 97 18 99 Nasal 2.0 12:45 Cannula 04/21/19 98.4 93/49 (64) 12:00 04/21/19 27 01:49 Intake and Output 04/20/19 04/20/19 04/21/19 1414:59 22:59 06:59 IntakeIntake Total 342.22 ml 249.99 ml 233.36 ml OutputOutput Total 0 ml 0 ml 3500 ml BalanceBalance 342.22 ml 249.99 ml -3266.64 ml Results Result Diagram: 04/21/19 0400 04/21/19 0400 Results 24hrs Laboratory Tests Test 04/20/19 13:55 04/20/19 17:40 04/20/19 17:41 04/20/19 20:54 Bedside Glucose 92 99 100 Creatine Kinase 25 Creatine Kinase 3.5 Index Creatinine Kinase MB 0.88 (Mass) Troponin I < 0.012 Test 04/21/19 04:00 04/21/19 07:49 04/21/19 10:13 White Blood Count 12.0 #H Red Blood Count 3.69 L Hemoglobin 11.2 L Hematocrit 34.6 L Mean Corpuscular 93.8 Volume Mean Corpuscular 30.4 Hemoglobin Mean Corpuscular 32.4 Hemoglobin Concent Red Cell 18.1 H Distribution Width Platelet Count 164 Mean Platelet Volume 10.9 H Immature 0.700 H Granulocytes % Neutrophils % 86.4 H Lymphocytes % 3.7 L Monocytes % 6.2 Eosinophils % 2.2 Basophils % 0.8 Nucleated Red Blood 0.0 Cells % Immature 0.090 H Granulocytes # Neutrophils # 10.4 H Lymphocytes # 0.5 L Monocytes # 0.8 Eosinophils # 0.3 Basophils # 0.1 Nucleated Red Blood 0.0 Cells # Sodium Level 136 Potassium Level 4.2 Chloride Level 98 Carbon Dioxide Level 25 Anion Gap 13 Blood Urea Nitrogen 24 H Creatinine 4.14 H Est Glomerular 11 L Filtrat Rate mL/min Glucose Level 90 Calcium Level 8.4 Phosphorus Level 3.6 Creatine Kinase 26 22 L Creatine Kinase 4.7 5.1 Index Creatinine Kinase MB 1.23 1.13 (Mass) Troponin I < 0.012 < 0.012 Triglycerides Level 57 Cholesterol Level < 50 L LDL Cholesterol, Calculated HDL Cholesterol 18 L Cholesterol/HDL Ratio Bedside Glucose 99 Medications Medication Current Medications Acetaminophen (Tylenol Tab) 650 mg Q4H PRN PO FOR FEVER; Start 04/17/19 at 05:00 Albuterol (Proventil 0.083% (Neb)) 2.5 mg Q4H RESP THERAPY PRN NEB WHEEZING AND SOB; Start 04/17/19 at 05:00 Atorvastatin Calcium (Lipitor) 20 mg QHS PO Last administered on 04/19/19at 21:21; Admin Dose 20 MG; Start 04/17/19 at 21:00 Benzonatate (Tessalon) 100 mg Q6 PRN PO COUGH; Start 04/17/19 at 05:00 Bisacodyl (Dulcolax) 5 mg BID PO Last administered on 04/19/19 21:21; Admin Dose 5 MG; Start 04/17/19 at 09:00 Folic Acid (Folic Acid) 1 mg DAILY PO Last administered on 04/19/19 08:13; Admin Dose 1 MG; Start 04/17/19 at 09:00 Gabapentin (Neurontin) 300 mg TID PO Last administered on 04/19/19 21:21; Admin Dose 300 MG; Start 04/17/19 at 09:00 Albuterol/ Ipratropium (Duoneb) 3 ml Q4H RESP THERAPY INH Last administered on 04/21/19 12:45; Admin Dose 3 ML; Start 04/17/19 at 05:00 Multivit/Ca Carb/ B Cmplx/FA/Prenat (Suzie-Paula) 1 tab DAILY PO Last administered on 04/19/19 08:14; Admin Dose 1 TAB; Start 04/17/19 at 09:00 Ondansetron HCl (Zofran Tab) 4 mg Q6H PRN PO NAUSEA AND/OR VOMITING; Start 04/17/19 at 05:00 Polyethylene Glycol (Miralax) 17 gm DAILY PO Last administered on 04/19/19 08:15; Admin Dose 17 GM; Start 04/17/19 at 09:00 Morphine Sulfate (morphine) 2 mg Q4H PRN IV SEVERE PAIN LEVEL 7-10 Last administered on 04/21/19 09:48; Admin Dose 2 MG; Start 04/17/19 at 05:00 Diagnostic Test (Pha) (Accu-Chek) 1 ea 02 XX ; Start 04/18/19 at 02:00 Insulin Aspart (Novolog Insulin Pen) NOVOLOG *MILD* ALGORITHM WITH MEALS BEDTIME SC ; Start 04/17/19 at 08:00 Miscellaneous Information (Pending [facility] Order For Wound Care) This patient davis... PRN PRN XX WOUND CARE; Start 04/17/19 at 05:00 Miscellaneous Information 1 ea NOTE XX ; Start 04/17/19 at 05:30 Glucose (Glutose) 15 gm Q15M PRN PO DECREASED GLUCOSE; Start 04/17/19 at 05:30 Glucose (Glutose) 22.5 gm Q15M PRN PO DECREASED GLUCOSE; Start 04/17/19 at 05:30 Dextrose (D50w Syringe) 25 ml Q15M PRN IV DECREASED GLUCOSE; Start 04/17/19 at 05:30 Dextrose (D50w Syringe) 50 ml Q15M PRN IV DECREASED GLUCOSE; Start 04/17/19 at 05:30 Glucagon (Glucagen) 1 mg Q15M PRN IM DECREASED GLUCOSE; Start 04/17/19 at 05:30 Glucose (Glutose) 15 gm Q15M PRN BUCCAL DECREASED GLUCOSE; Start 04/17/19 at 05:30 Guaifenesin/ Codeine Phosphate (Robitussin Ac Liquid Cup) 5 ml TID PO Last administered on 04/19/19at 21:22; Admin Dose 5 ML; Start 04/17/19 at 09:00 Bisacodyl (Dulcolax Supp) 10 mg DAILY PRN [place] CONSTIPATION Last administered on 04/19/19at 05:04; Admin Dose 10 MG; Start 04/17/19 at 10:00 Lubiprostone (Amitiza) 24 mcg BID PO Last administered on 04/19/19at 21:22; Adm in Dose 24 MCG; Start 04/17/19 at 12:00 Heparin Sodium (Porcine) (Heparin (1000 Units/ml)) 4,000 unit AFTER DIALYSIS CATHETER Last administered on 04/21/19at 06:12; Admin Dose 3,700 UNIT; Start 04/17/19 at 12:00 Vancomycin HCl (Vanco Iv Per Pharmacy) VANCOMYCIN PER PHARMACY PER PROTOCOL XX ; Start 04/17/19 at 16:00 Meropenem/Sodium Chloride 50 ml @ 100 mls/hr Q12 IVPB Last administered on 04/21/19at 08:14; Admin Dose 100 MLS/HR; Start 04/17/19 at 21:00 Tramadol HCl (Ultram) 50 mg Q6H PRN PO MODERATE PAIN LEVEL 4-6 Last administered on 04/19/19at 09:37; Admin Dose 50 MG; Start 04/18/19 at 11:00 Hydromorphone HCl (Dilaudid) 4 mg Q6H PRN PO PAIN 7-10/10; Start 04/18/19 at 11:30 Povidone Iodine (Povidone-Iodine) 1 applic DAILY TOP Last administered on 04/20/19 08:59; Admin Dose 1 APPLIC; Start 04/18/19 at 13:00 Pantoprazole (Protonix Tab) 40 mg BID@0600,1800 PO Last administered on 03/30 18:05; Admin Dose 40 MG; Start 04/18/19 at 18:00 Albumin Human 100 ml @ 100 mls/hr WITH DIALYSIS PRN IV SBP <90 DURING DIALYSIS Last administered on 04/21/19 02:58; Admin Dose 100 MLS/HR; Start 04/18/19 at 15:00 Sodium Hypochlorite (Dakins Diluted ()) 1 applic TID TP Last administered on 04/20/19 21:01; Admin Dose 1 APPLIC; Start 04/18/19 at 21:00 Zolpidem Tartrate (Ambien) 5 mg HS PRN PO INSOMNIA Last administered on 04/19/19 02:40; Admin Dose 5 MG; Start 04/19/19 at 03:00 Metoclopramide HCl (Reglan) 5 mg Q6 IV Last administered on 04/21/19 12:02; Admin Dose 5 MG; Start 04/19/19 at 18:00 Amiodarone HCl 900 mg/Dextrose 500 ml @ 33.33 mls/ hr Q15H1M IV Last administered on 04/20/19 13:56; Admin Dose 33.33 MLS/HR; Start 04/20/19 at 13:30; Stop 04/21/19 at 13:29 Lorazepam (Ativan) 0.5 mg Q6H PRN IV AGITATION/ANXIETY Last administered on 04/20/19 23:30; Admin Dose 0.5 MG; Start 04/20/19 at 17:30 Phenylephrine HCl 40 mg/Dextrose 250 ml @ 37.5 mls/hr TITRATE IV ; Start 04/20/19 at 19:00 JOHANA KULKARNI NP April 21, 2019 13:18
[2019-04-21] MEDS ORDERED: GENTAMICIN IV PER PHARMACY XX SCH (13:30)
[2019-04-21] MEDS: ZYVOX 600 MG TAB PO SCH ×2 (14:22→23:16)
--- NOTE | 2019-04-21 15:13 | CONS ---
Assessment/Plan Assessment/Plan Assessment/Plan (Daily) IMPRESSION: 1. Abdominal pain, rule out peptic ulcer disease, rule out gastritis. Rule out also bile duct stone, given the history of elevated alkaline phosphatase. Patient has severe gastritis 2. End-stage renal disease on dialysis. 3. Peripheral vascular disease. 4. Chronic atrial fibrillation. 5. Status post cholecystectomy. 6. Diabetes. 7. Hypertension. 8. Depression. 9. Lower extremity wound. 10. Atrial fibrillation rate is controlled with digoxin and amiodarone Plan Continue antibiotic Continue all supportive care and PPI. Consultation Date/Type/Reason Admit Date/Time April 17, 2019 at 00:03 Initial Consult Date 04/18/19 Requesting Provider: ALONZO KNOWLES MD Date/Time of Note DATE: 04/21/19 TIME: 15:12 24 HR Interval Summary Free Text/Dictation Patient became hypotensive and got transferred to intensive care unit. Patient is not on any pressor support Exam/Review of Systems Exam Vitals Vital Signs Date Temp Pulse Resp B/P (MAP) Pulse Ox O2 O2 Flow FiO2 Time Delivery Rate 04/21/19 91 16 91/48 (62) 100 Nasal 14:00 Cannula 04/21/19 2.0 12:45 04/21/19 98.4 12:00 04/21/19 27 01:49 Intake and Output 04/20/19 04/20/19 04/21/19 1515:00 23:00 07:00 IntakeIntake Total 375.55 ml 233.33 ml 216.69 ml OutputOutput Total 0 ml 0 ml 3500 ml BalanceBalance 375.55 ml 233.33 ml -3283.31 ml Constitutional: alert, oriented, well developed Psych: no complaints, nl mood/affect Head: normocephalic, atraumatic Eyes: nl conjunctiva, EOMI, nl lids, nl sclera, PERRL ENMT: nl external ears & nose, nl lips & teeth, nl nasal mucosa & septum Neck: supple, non-tender Respiratory: clear to auscultation, normal air movement Cardiovascular: regular rate and rhythm, nl pulses Gastrointestinal: soft, nl liver, spleen, non-tender Musculoskeletal: nl extremities to inspection, nl gait and stance Extremities: normal pulses Neurological: HOSPITAL MANAGER II-XII intact, nl mental status, nl speech, nl strength Skin: nl turgor; No rash or lesions Lymph: nl lymph nodes Results Result Diagram: 04/21/19 0400 04/21/19 0400 Results 24hrs Laboratory Tests Test 04/20/19 17:40 04/20/19 17:41 04/20/19 20:54 04/21/19 04:00 Bedside Glucose 99 100 Creatine Kinase 25 26 Creatine Kinase 3.5 4.7 Index Creatinine Kinase MB 0.88 1.23 (Mass) Troponin I < 0.012 < 0.012 White Blood Count 12.0 #H Red Blood Count 3.69 L Hemoglobin 11.2 L Hematocrit 34.6 L Mean Corpuscular 93.8 Volume Mean Corpuscular 30.4 Hemoglobin Mean Corpuscular 32.4 Hemoglobin Concent Red Cell 18.1 H Distribution Width Platelet Count 164 Mean Platelet Volume 10.9 H Immature 0.700 H Granulocytes % Neutrophils % 86.4 H Lymphocytes % 3.7 L Monocytes % 6.2 Eosinophils % 2.2 Basophils % 0.8 Nucleated Red Blood 0.0 Cells % Immature 0.090 H Granulocytes # Neutrophils # 10.4 H Lymphocytes # 0.5 L Monocytes # 0.8 Eosinophils # 0.3 Basophils # 0.1 Nucleated Red Blood 0.0 Cells # Sodium Level 136 Potassium Level 4.2 Chloride Level 98 Carbon Dioxide Level 25 Anion Gap 13 Blood Urea Nitrogen 24 H Creatinine 4.14 H Est Glomerular 11 L Filtrat Rate mL/min Glucose Level 90 Calcium Level 8.4 Phosphorus Level 3.6 Triglycerides Level 57 Cholesterol Level < 50 L LDL Cholesterol, Calculated HDL Cholesterol 18 L Cholesterol/HDL Ratio Test 04/21/19 07:49 04/21/19 10:13 Bedside Glucose 99 Creatine Kinase 22 L Creatine Kinase 5.1 Index Creatinine Kinase MB 1.13 (Mass) Troponin I < 0.012 Medications Medication Current Medications Acetaminophen (Tylenol Tab) 650 mg Q4H PRN PO FOR FEVER; Start 04/17/19 at 05:00 Albuterol (Proventil 0.083% (Neb)) 2.5 mg Q4H RESP THERAPY PRN NEB WHEEZING AND SOB; Start 04/17/19 at 05:00 Atorvastatin Calcium (Lipitor) 20 mg QHS PO Last administered on 04/19/19at 21:21; Admin Dose 20 MG; Start 04/17/19 at 21:00 Benzonatate (Tessalon) 100 mg Q6 PRN PO COUGH; Start 04/17/19 at 05:00 Bisacodyl (Dulcolax) 5 mg BID PO Last administered on 04/19/19 21:21; Admin Dose 5 MG; Start 04/17/19 at 09:00 Folic Acid (Folic Acid) 1 mg DAILY PO Last administered on 04/19/19at 08:13; Admin Dose 1 MG; Start 04/17/19 at 09:00 Gabapentin (Neurontin) 300 mg TID PO Last administered on 04/19/19at 21:21; Admin Dose 300 MG; Start 04/17/19 at 09:00 Albuterol/ Ipratropium (Duoneb) 3 ml Q4H RESP THERAPY INH Last administered on 04/21/19 12:45; Admin Dose 3 ML; Start 04/17/19 at 05:00 Multivit/Ca Carb/ B Cmplx/FA/Prenat (Suzie-Paula) 1 tab DAILY PO Last administered on 04/19/19at 08:14; Admin Dose 1 TAB; Start 04/17/19 at 09:00 Ondansetron HCl (Zofran Tab) 4 mg Q6H PRN PO NAUSEA AND/OR VOMITING; Start 04/17/19 at 05:00 Polyethylene Glycol (Miralax) 17 gm DAILY PO Last administered on 04/19/19 08: 15; Admin Dose 17 GM; Start 04/17/19 at 09:00 Morphine Sulfate (morphine) 2 mg Q4H PRN IV SEVERE PAIN LEVEL 7-10 Last administered on 04/21/19 09:48; Admin Dose 2 MG; Start 04/17/19 at 05:00 Diagnostic Test (Pha) (Accu-Chek) 1 ea 02 XX ; Start 04/18/19 at 02:00 Insulin Aspart (Novolog Insulin Pen) NOVOLOG *MILD* ALGORITHM WITH MEALS BEDTIME SC ; Start 04/17/19 at 08:00 Miscellaneous Information (Pending [facility] Order For Wound Care) This patient davis... PRN PRN XX WOUND CARE; Start 04/17/19 at 05:00 Miscellaneous Information 1 ea NOTE XX ; Start 04/17/19 at 05:30 Glucose (Glutose) 15 gm Q15M PRN PO DECREASED GLUCOSE; Start 04/17/19 at 05:30 Glucose (Glutose) 22.5 gm Q15M PRN PO DECREASED GLUCOSE; Start 04/17/19 at 05:30 Dextrose (D50w Syringe) 25 ml Q15M PRN IV DECREASED GLUCOSE; Start 04/17/19 at 05:30 Dextrose (D50w Syringe) 50 ml Q15M PRN IV DECREASED GLUCOSE; Start 04/17/19 at 05:30 Glucagon (Glucagen) 1 mg Q15M PRN IM DECREASED GLUCOSE; Start 04/17/19 at 05:30 Glucose (Glutose) 15 gm Q15M PRN BUCCAL DECREASED GLUCOSE; Start 04/17/19 at 05:30 Guaifenesin/ Codeine Phosphate (Robitussin Ac Liquid Cup) 5 ml TID PO Last administered on 04/19/19 21:22; Admin Dose 5 ML; Start 04/17/19 at 09:00 Bisacodyl (Dulcolax Supp) 10 mg DAILY PRN IN CONSTIPATION Last administered on 04/19/19 05:04; Admin Dose 10 MG; Start 04/17/19 at 10:00 Lubiprostone (Amitiza) 24 mcg BID PO Last administered on 04/19/19 21:22; Admin Dose 24 MCG; Start 04/17/19 at 12:00 Heparin Sodium (Porcine) (Heparin (1000 Units/ml)) 4,000 unit AFTER DIALYSIS CATHETER Last administered on 04/21/19 06:12; Admin Dose 3,700 UNIT; Start 04/17/19 at 12:00 Tramadol HCl (Ultram) 50 mg Q6H PRN PO MODERATE PAIN LEVEL 4-6 Last administered on 04/19/19 09:37; Admin Dose 50 MG; Start 04/18/19 at 11:00 Hydromorphone HCl (Dilaudid) 4 mg Q6H PRN PO PAIN 7-10/10; Start 04/18/19 at 11:30 Povidone Iodine (Povidone-Iodine) 1 applic DAILY TOP Last administered on 04/20/19 08:59; Admin Dose 1 APPLIC; Start 04/18/19 at 13:00 Pantoprazole (Protonix Tab) 40 mg BID@0600,1800 PO Last administered on 04/19/19 18:05; Admin Dose 40 MG; Start 04/18/19 at 18:00 Albumin Human 100 ml @ 100 mls/hr WITH DIALYSIS PRN IV SBP <90 DURING DIALYSIS Last administered on 04/21/19at 02:58; Admin Dose 100 MLS/HR; Start 04/18/19 at 15:00 Sodium Hypochlorite (Dakins Diluted ()) 1 applic TID TP Last administered on 04/20/19at 21:01; Admin Dose 1 APPLIC; Start 04/18/19 at 21:00 Zolpidem Tartrate (Ambien) 5 mg HS PRN PO INSOMNIA Last administered on 04/19/19at 02:40; Admin Dose 5 MG; Start 04/19/19 at 03:00 Metoclopramide HCl (Reglan) 5 mg Q6 IV Last administered on 04/21/19at 12:02; Admin Dose 5 MG; Start 04/19/19 at 18:00 Lorazepam (Ativan) 0.5 mg Q6H PRN IV AGITATION/ANXIETY Last administered on 04/20/19at 23:30; Admin Dose 0.5 MG; Start 04/20/19 at 17:30 Phenylephrine HCl 40 mg/Dextrose 250 ml @ 37.5 mls/hr TITRATE IV ; Start 04/20/19 at 19:00 Linezolid (Zyvox) 600 mg BID PO ; Start 04/21/19 at 14:30 Gentamicin Sulfate (Gentamicin Iv Per Pharmacy) GENTAMICIN PER PHARMACY NOTE XX ; Start 04/21/19 at 13:30 Gentamicin Sulfate 150 mg/ Dextrose 103.75 ml @ 103.75 mls/hr ONCE IVPB ; Start 04/21/19 at 16:00; Stop 04/21/19 at 21:00 IVANA MULTANI MD April 21, 2019 15:13
[2019-04-21] MEDS ORDERED: GENTAMICIN 150 MG in DEXTROSE 5% 100 ML IVPB SCH (16:00)
[2019-04-21] MEDS: ATORVASTATIN 20 MG TAB PO SCH (20:11)
[2019-04-22] VITALS (74 sets, daily range): BP systolic 73–137; BP diastolic 39–116; PULSE 84–107; RESP 10–35
[2019-04-22] MEDS: morphine 2 MG INJ IV PRN ×3 (00:11→18:53)
[2019-04-22] MEDS: ALBUTEROL/IPRATROPIUM (NEB) 3 ML AMP INH SCH ×5 (00:41→20:26)
[2019-04-22] MEDS: ACCU-CHEK XX SCH (01:19)
[2019-04-22] MEDS: PANTOPRAZOLE (EC) 40 MG TAB PO SCH ×2 (05:10→18:46)
[2019-04-22] MEDS: METOCLOPRAMIDE 10 MG INJ IV SCH ×3 (05:23→18:43)
[2019-04-22] MEDS ORDERED: GENTAMICIN 80 MG/NS (PMX) 50 ML IVPB SCH (07:00)
[2019-04-22] MEDS ORDERED: GENTAMICIN 100 MG/50 ML NS IVPB SCH (08:00)
[2019-04-22] MEDS: INSULIN ASPART [NOVOLOG] 3 ML PEN SC SCH ×4 (08:36→20:55)
--- NOTE | 2019-04-22 08:58 | PN ---
Date/Time of Note Date/Time of Note DATE: 04/22/19 TIME: 08:58 Assessment/Plan VTE Prophylaxis Risk [place] (from [facility] [place]0 risk: 10 SCD applied (from [facility] [place] No SCD contraindicated: bilateral LE trauma Pharmacological prophylaxis: NA/contraindicated Pharm contraindication: anticoag not tolerated Lines/Catheters IV Catheter Type (from [facility]): PERMACATH Central line still needed: Yes Urinary Cath still in place: No Assessment/Plan Hospital Course 1. Abdominal pain with some nausea. CT of the abdomen and pelvis showed severe left hydronephrosis, status post cholecystectomy. LFTs within normal limit except mildly elevated alkaline phosphatase. Lipase is 22. Likely secondary to constipation vs gastritis vs gastroparesis abdominal pain is still persistent. Versus choledocholithiasis 2. Severe left hydronephrosis secondary to UPJ junction, no urinary stone. probably chronic , no intervention per urology 3. Bilateral lower extremity ulcers with gangrene, followed by Dr. Schultz/ [place] 4. End-stage renal disease, on hemodialysis. 5. Hypotension, on dialysis. could be secondary to infected ulcers, hold bp me ds 6. Diabetes mellitus type II. 7. Hypertension. 8. Peripheral vascular disease. 9. History of gastritis. 10. History of gastroparesis. 11. History of atrial fibrillation. 12 anasarca 13. Afib, RVR, controlled now, 14. SIRS Assessment/Plan -contact Isolation for VRE wound -surgery for revision, possible amputation of the wound bilaterally postponed until today -strict BS control -c.e phos. binding agents -DVT prophylaxis is unable to impose due to anemia and expecting surgical interventions. -GI proph Protonix -pt is stable for surgery on feet, possible bilateral amputation -c/w HD -dr Flowers is for cardio -dr Coronado, podiatry consult is appreciated -ID per dr Webb Result Diagram: 04/21/19 0400 04/21/19 0400 Results 24hrs Laboratory Tests Test 04/21/19 10:13 04/21/19 20:10 04/22/19 08:35 Creatine Kinase 22 L Creatine Kinase Index 5.1 Creatinine Kinase MB (Mass) 1.13 Troponin I < 0.012 Bedside Glucose 81 75 Subjective 24 Hr Interval Summary Constitutional: no complaints Exam/Review of Systems Exam Vitals Vital Signs Date Temp Pulse Resp B/P (MAP) Pulse Ox O2 O2 Flow FiO2 Time Delivery Rate 04/22/19 98 23 96/53 (67) 100 08:45 04/22/19 98.5 Nasal 3.0 08:30 Cannula 04/21/19 21 16:52 Intake and Output 04/21/19 04/21/19 04/22/19 1515:00 23:00 07:00 IntakeIntake Total 0 ml 0 ml 0 ml OutputOutput Total 0 ml 0 ml BalanceBalance 0 ml 0 ml 0 ml Exam right chest perm cath Constitutional: alert, oriented Head: normocephalic Eyes: nl conjunctiva ENMT: nl external ears & nose Neck: supple Respiratory: diminished breath sounds Cardiovascular: regular rate and rhythm Gastrointestinal: soft Extremities: pitting pedal edema, other (surgical dressing on) Results Results 24hrs Laboratory Tests Test 04/21/19 10:13 04/21/19 20:10 04/22/19 08:35 Creatine Kinase 22 L Creatine Kinase Index 5.1 Creatinine Kinase MB (Mass) 1.13 Troponin I < 0.012 Bedside Glucose 81 75 Medications Medication Current Medications Acetaminophen (Tylenol Tab) 650 mg Q4H PRN PO FOR FEVER; Start 04/17/19 at 05:00 Albuterol (Proventil 0.083% (Neb)) 2.5 mg Q4H RESP THERAPY PRN NEB WHEEZING AND SOB; Start 04/17/19 at 05:00 Atorvastatin Calcium (Lipitor) 20 mg QHS PO Last administered on 04/21/19at 20:11; Admin Dose 20 MG; Start 04/17/19 at 21:00 Benzonatate (Tessalon) 100 mg Q6 PRN PO COUGH; Start 04/17/19 at 05:00 Bisacodyl (Dulcolax) 5 mg BID PO Last administered on 04/21/19at 20:11; Admin Dose 5 MG; Start 04/17/19 at 09:00 Folic Acid (Folic Acid) 1 mg DAILY PO Last administered on 04/19/19at 08:13; Admin Dose 1 MG; Start 04/17/19 at 09:00 Gabapentin (Neurontin) 300 mg TID PO Last administered on 04/21/19at 20:11; Admin Dose 300 MG; Start 04/17/19 at 09:00 Albuterol/ Ipratropium (Duoneb) 3 ml Q4H RESP THERAPY INH Last administered on 04/22/19at 04:21; Admin Dose 3 ML; Start 04/17/19 at 05:00 Multivit/Ca Carb/ B Cmplx/FA/Prenat (Suzie-Paula) 1 tab DAILY PO Last adm inistered on 04/19/19at 08:14; Admin Dose 1 TAB; Start 04/17/19 at 09:00 Ondansetron HCl (Zofran Tab) 4 mg Q6H PRN PO NAUSEA AND/OR VOMITING; Start 04/17/19 at 05:00 Polyethylene Glycol (Miralax) 17 gm DAILY PO Last administered on 04/19/19at 08:15; Admin Dose 17 GM; Start 04/17/19 at 09:00 Morphine Sulfate (morphine) 2 mg Q4H PRN IV SEVERE PAIN LEVEL 7-10 Last administered on 04/22/19at 05:55; Admin Dose 2 MG; Start 04/17/19 at 05:00 Diagnostic Test (Pha) (Accu-Chek) 1 ea 02 XX ; Start 04/18/19 at 02:00 Insulin Aspart (Novolog Insulin Pen) NOVOLOG *MILD* ALGORITHM WITH MEALS BEDTIME SC ; Start 04/17/19 at 08:00 Miscellaneous Information (Pending [facility] Order For Wound Care) This patient davis ... PRN PRN XX WOUND CARE; Start 04/17/19 at 05:00 Miscellaneous Information 1 ea NOTE XX ; Start 04/17/19 at 05:30 Glucose (Glutose) 15 gm Q15M PRN PO DECREASED GLUCOSE; Start 04/17/19 at 05:30 Glucose (Glutose) 22.5 gm Q15M PRN PO DECREASED GLUCOSE; Start 04/17/19 at 05:30 Dextrose (D50w Syringe) 25 ml Q15M PRN IV DECREASED GLUCOSE; Start 04/17/19 at 05:30 Dextrose (D50w Syringe) 50 ml Q15M PRN IV DECREASED GLUCOSE; Start 04/17/19 at 05:30 Glucagon (Glucagen) 1 mg Q15M PRN IM DECREASED GLUCOSE; Start 04/17/19 at 05:30 Glucose (Glutose) 15 gm Q15M PRN BUCCAL DECREASED GLUCOSE; Start 04/17/19 at 05:30 Guaifenesin/ Codeine Phosphate (Robitussin Ac Liquid Cup) 5 ml TID PO Last administered on 04/21/19 20:11; Admin Dose 5 ML; Start 04/17/19 at 09:00 Bisacodyl (Dulcolax Supp) 10 mg DAILY PRN [place] CONSTIPATION Last administered on 04/19/19 05:04; Admin Dose 10 MG; Start 04/17/19 at 10:00 Lubiprostone (Amitiza) 24 mcg BID PO Last administered on 04/21/19 20:11; Admin Dose 24 MCG; Start 04/17/19 at 12:00 Heparin Sodium (Porcine) (Heparin (1000 Units/ml)) 4,000 unit AFTER DIALYSIS CATHETER Last administered on 04/21/19 06:12; Admin Dose 3,700 UNIT; Start 04/17/19 at 12:00 Tramadol HCl (Ultram) 50 mg Q6H PRN PO MODERATE PAIN LEVEL 4-6 Last administered on 04/19/19 09:37; Admin Dose 50 MG; Start 04/18/19 at 11:00 Hydromorphone HCl (Dilaudid) 4 mg Q6H PRN PO PAIN 7-10/10; Start 04/18/19 at 11:30 Povidone Iodine (Povidone-Iodine) 1 applic DAILY TOP Last administered on 04/20/19 08:59; Admin Dose 1 APPLIC; Start 04/18/19 at 13:00 Pantoprazole (Protonix Tab) 40 mg BID@0600,1800 PO Last administered on 04/19/19 18:05; Admin Dose 40 MG; Start 04/18/19 at 18:00 Albumin Human 100 ml @ 100 mls/hr WITH DIALYSIS PRN IV SBP <90 DURING DIALYSIS Last administered on 04/21/19 02:58; Admin Dose 100 MLS/HR; Start 04/18/19 at 15:00 Sodium Hypochlorite (Dakins Diluted ()) 1 applic TID TP Last administered on 04/21/19 20:12; Admin Dose 1 APPLIC; Start 04/18/19 at 21:00 Zolpidem Tartrate (Ambien) 5 mg HS PRN PO INSOMNIA Last administered on 04/19/19 02:40; Admin Dose 5 MG; Start 04/19/19 at 03:00 Metoclopramide HCl (Reglan) 5 mg Q6 IV Last administered on 04/22/19at 05:23; Admin Dose 5 MG; Start 04/19/19 at 18:00 Lorazepam (Ativan) 0.5 mg Q6H PRN IV AGITATION/ANXIETY Last administered on 04/20/19at 23:30; Admin Dose 0.5 MG; Start 04/20/19 at 17:30 Phenylephrine HCl 40 mg/Dextrose 250 ml @ 37.5 mls/hr TITRATE IV ; Start 04/20/19 at 19:00 Linezolid (Zyvox) 600 mg BID PO Last administered on 04/21/19at 23:16; Admin Dose 600 MG; Start 04/21/19 at 14:30 Gentamicin Sulfate (Gentamicin Iv Per Pharmacy) GENTAMICIN PER PHARMACY NOTE XX ; Start 04/21/19 at 13:30 Gentamicin Sulfate 50 ml @ 100 mls/hr AFTER DIALYSIS IVPB ; Start 04/22/19 at 08:00 KENNY TERRAZAS April 22, 2019 08:58
[2019-04-22] MEDS: DAKINS 0.0125%(1/40) 473 ML SOLUTION TP SCH ×3 (09:00→20:41)
[2019-04-22] MEDS: BISACODYL (EC) 5 MG TAB PO SCH ×2 (09:00→20:41)
[2019-04-22] MEDS: POVIDONE IODINE 10% 28.4 GM OINT TOP SCH (09:00)
[2019-04-22] MEDS: GABAPENTIN 300 MG CAP PO SCH ×3 (09:00→20:42)
[2019-04-22] MEDS: POLYETHYLENE GLYCOL 17 GM PACKET PO SCH (09:00)
[2019-04-22] MEDS: BALSAM PERU/CASTOR OIL 60 GM TUBE TOP SCH ×2 (09:00→20:43)
[2019-04-22] MEDS: GUAIFENESIN/CODEINE 5ML CUP PO SCH ×3 (09:00→20:41)
[2019-04-22] MEDS: LUBIPROSTONE 24 MCG CAP PO SCH ×2 (09:00→20:42)
[2019-04-22] MEDS: MULTIVIT/CA CARB/B CMPLX/FA TAB PO SCH (09:00)
[2019-04-22] MEDS: ZYVOX 600 MG TAB PO SCH (09:00)
[2019-04-22] MEDS: FOLIC ACID 1 MG TAB PO SCH (09:00)
--- NOTE | 2019-04-22 09:55 | CONS ---
Assessment/Plan Assessment/Plan Hospital Course (Demo Recall) IMPRESSION: 1. Abdominal pain, rule out peptic ulcer disease, rule out gastritis. Rule out also bile duct stone, given the history of elevated alkaline phosphatase. Patient has severe gastritis 2. End-stage renal disease on dialysis. 3. Peripheral vascular disease. 4. Chronic atrial fibrillation. 5. Status post cholecystectomy. 6. Diabetes. 7. Hypertension. 8. Depression. 9. Lower extremity wound. 10. Atrial fibrillation rate is controlled with digoxin and amiodarone Plan Continue antibiotic Continue all supportive care and PPI. Consultation Date/Type/Reason Admit Date/Time April 17, 2019 at 00:03 Initial Consult Date 04/20/19 Type of Consult GI Requesting Provider: ALONZO KNOWLES MD Date/Time of Note DATE: 04/22/19 TIME: 09:53 24 HR Interval Summary Free Text/Dictation discuss with family at bedside Subjective hx not possible: pt non-verbal Exam/Review of Systems Exam Vitals Vital Signs Date Temp Pulse Resp B/P (MAP) Pulse Ox O2 O2 Flow FiO2 Time Delivery Rate 04/22/19 94 16 97/48 (64) 100 09:15 04/22/19 Nasal 3.0 08:30 Cannula 04/22/19 98.2 04:00 04/21/19 21 16:52 Intake and Output 04/21/19 04/21/19 04/22/19 1515:00 23:00 07:00 IntakeIntake Total 0 ml 0 ml 0 ml OutputOutput Total 0 ml 0 ml BalanceBalance 0 ml 0 ml 0 ml Constitutional: non-verbal Psych: confusion Head: normocephalic, atraumatic Eyes: nl conjunctiva, nl lids ENMT: nl external ears & nose, nl lips & teeth, nl nasal mucosa & septum Neck: supple, non-tender Respiratory: clear to auscultation, normal air movement Cardiovascular: regular rate and rhythm Gastrointestinal: soft, non-tender, bowel sounds Results Result Diagram: 04/21/19 0400 04/21/19 0400 Results 24hrs Laboratory Tests Test 04/21/19 10:13 04/21/19 20:10 04/22/19 08:35 Creatine Kinase 22 L Creatine Kinase Index 5.1 Creatinine Kinase MB (Mass) 1.13 Troponin I < 0.012 Bedside Glucose 81 75 Medications Medication Current Medications Acetaminophen (Tylenol Tab) 650 mg Q4H PRN PO FOR FEVER; Start 04/17/19 at 05:00 Albuterol (Proventil 0.083% (Neb)) 2.5 mg Q4H RESP THERAPY PRN NEB WHEEZING AND SOB; Start 04/17/19 at 05:00 Atorvastatin Calcium (Lipitor) 20 mg QHS PO Last administered on 04/21/19 20:11; Admin Dose 20 MG; Start 04/17/19 at 21:00 Benzonatate (Tessalon) 100 mg Q6 PRN PO COUGH; Start 04/17/19 at 05:00 Bisacodyl (Dulcolax) 5 mg BID PO Last administered on 04/21/19 20:11; Admin Dose 5 MG; Start 04/17/19 at 09:00 Folic Acid (Folic Acid) 1 mg DAILY PO Last administered on 04/19/19 08:13; Admin Dose 1 MG; Start 04/17/19 at 09:00 Gabapentin (Neurontin) 300 mg TID PO Last administered on 04/21/19 20:11; Admin Dose 300 MG; Start 04/17/19 at 09:00 Albuterol/ Ipratropium (Duoneb) 3 ml Q4H RESP THERAPY INH Last administered on 04/22/19 09:33; Admin Dose 3 ML; Start 04/17/19 at 05:00 Multivit/Ca Carb/ B Cmplx/FA/Prenat (Suzie-Paula) 1 tab DAILY PO Last administer ed on 04/19/19 08:14; Admin Dose 1 TAB; Start 04/17/19 at 09:00 Ondansetron HCl (Zofran Tab) 4 mg Q6H PRN PO NAUSEA AND/OR VOMITING; Start 04/17/19 at 05:00 Polyethylene Glycol (Miralax) 17 gm DAILY PO Last administered on 04/19/19 08:15; Admin Dose 17 GM; Start 04/17/19 at 09:00 Morphine Sulfate (morphine) 2 mg Q4H PRN IV SEVERE PAIN LEVEL 7-10 Last administered on 04/22/19 05:55; Admin Dose 2 MG; Start 04/17/19 at 05:00 Diagnostic Test (Pha) (Accu-Chek) 1 ea 02 XX ; Start 04/18/19 at 02:00 Insulin Aspart (Novolog Insulin Pen) NOVOLOG *MILD* ALGORITHM WITH MEALS BEDTIME SC ; Start 04/17/19 at 08:00 [facility] This patient davis... PRN PRN XX WOUND CARE; Start 04/17/19 at 05:00 Miscellaneous Information 1 ea NOTE XX ; Start 04/17/19 at 05:30 Glucose (Glutose) 15 gm Q15M PRN PO DECREASED GLUCOSE; Start 04/17/19 at 05:30 Glucose (Glutose) 22.5 gm Q15M PRN PO DECREASED GLUCOSE; Start 04/17/19 at 05:30 Dextrose (D50w Syringe) 25 ml Q15M PRN IV DECREASED GLUCOSE; Start 04/17/19 at 05:30 Dextrose (D50w Syringe) 50 ml Q15M PRN IV DECREASED GLUCOSE; Start 04/17/19 at 05:30 Glucagon (Glucagen) 1 mg Q15M PRN IM DECREASED GLUCOSE; Start 04/17/19 at 05:30 Glucose (Glutose) 15 gm Q15M PRN BUCCAL DECREASED GLUCOSE; Start 04/17/19 at 05:30 Guaifenesin/ Codeine Phosphate (Robitussin Ac Liquid Cup) 5 ml TID PO Last administered on 04/21/19at 20:11; Admin Dose 5 ML; Start 04/17/19 at 09:00 Bisacodyl (Dulcolax Supp) 10 mg DAILY PRN [place] CONSTIPATION Last administered on 04/19/19at 05:04; Admin Dose 10 MG; Start 04/17/19 at 10:00 Lubiprostone (Amitiza) 24 mcg BID PO Last administered on 04/21/19at 20:11; Admin Dose 24 MCG; Start 04/17/19 at 12:00 Heparin Sodium (Porcine) (Heparin (1000 Units/ml)) 4,000 unit AFTER DIALYSIS CATHETER Last administered on 04/21/19at 06:12; Admin Dose 3,700 UNIT; Start 04/17/19 at 12:00 Tramadol HCl (Ultram) 50 mg Q6H PRN PO MODERATE PAIN LEVEL 4-6 Last administered on 04/19/19at 09:37; Admin Dose 50 MG; Start 04/18/19 at 11:00 Hydromorphone HCl (Dilaudid) 4 mg Q6H PRN PO PAIN 7-10/10; Start 04/18/19 at 11:30 Povidone Iodine (Povidone-Iodine) 1 applic DAILY TOP Last administered on 04/20/19at 08:59; Admin Dose 1 APPLIC; Start 04/18/19 at 13:00 Pantoprazole (Protonix Tab) 40 mg BID@0600,1800 PO Last administered on 04/19/19 18:05; Admin Dose 40 MG; Start 04/18/19 at 18:00 Albumin Human 100 ml @ 100 mls/hr WITH DIALYSIS PRN IV SBP <90 DURING DIALYSIS Last administered on 04/21/19 02:58; Admin Dose 100 MLS/HR; Start 04/18/19 at 15:00 Sodium Hypochlorite (Dakins Diluted ()) 1 applic TID TP Last administered on 04/21/19at 20:12; Admin Dose 1 APPLIC; Start 04/18/19 at 21:00 Zolpidem Tartrate (Ambien) 5 mg HS PRN PO INSOMNIA Last administered on 04/19/19at 02:40; Admin Dose 5 MG; Start 04/19/19 at 03:00 Metoclopramide HCl (Reglan) 5 mg Q6 IV Last administered on 04/22/19 05:23; Admin Dose 5 MG; Start 04/19/19 at 18:00 Lorazepam (Ativan) 0.5 mg Q6H PRN IV AGITATION/ANXIETY Last administered on 04/20/19at 23:30; Admin Dose 0.5 MG; Start 04/20/19 at 17:30 Phenylephrine HCl 40 mg/Dextrose 250 ml @ 37.5 mls/hr TITRATE IV ; Start 04/20/19 at 19:00 Linezolid (Zyvox) 600 mg BID PO Last administered on 04/21/19at 23:16; Admin Dose 600 MG; Start 04/21/19 at 14:30 Gentamicin Sulfate (Gentamicin Iv Per Pharmacy) GENTAMICIN PER PHARMACY NOTE XX ; Start 04/21/19 at 13:30 Gentamicin Sulfate 50 ml @ 100 mls/hr AFTER DIALYSIS IVPB ; Start 04/22/19 at 08:00 SOL DE LEÓN MD April 22, 2019 09:55
[2019-04-22] MEDS ORDERED: PHENYLephrine 10 MG INJ ONE ×2 (10:56→10:59)
[2019-04-22] MEDS: PHENYLephrine 40 MG in DEXTROSE 5% 246 ML IV SCH (11:09)
--- NOTE | 2019-04-22 11:39 | HPN ---
Date/Time of Note Date/Time of Note DATE: 04/22/19 TIME: 11:38 Interval H&P Admission Note Pt. seen H&P reviewed: No system changes ISAIAS ZARATE DPM April 22, 2019 11:39
--- NOTE | 2019-04-22 12:41 | CONS ---
Assessment/Plan Assessment/Plan Hospital Course (Demo Recall) IMPRESSION: 1. Atrial fibrillation-mainlyrate controlled s/p digoxin IVP and on amio 2. Hypotension, borderline, now on pressors 3. Preoperative for lower extremity foot debridement.-Echo EF 60-65/no sig valve abnl/Neg trop x 2 4. End-stage renal disease, on hemodialysis. 5. Dyslipidemia. 6. Lower extremity nonhealing ulcerations. 7. Presumed peripheral arterial disease. 8. Coagulopathy. 9. Anemia. 10. Thrombocytopenia-slowly improving. Recc: -IN ICU -serial ecg's -Continue statin -Contineu abx's and f/u cx data -Start PO amio -IF BP improves/stabilizes patient ok to proceed to surgery at moderate cv risk as now on low dose neosynephrine Consultation Date/Type/Reason Admit Date/Time April 17, 2019 at 00:03 Initial Consult Date 04/20/19 Type of Consult Cardiology Reason for Consultation AF Requesting Provider: ALONZO KNOWLES MD Date/Time of Note DATE: 04/22/19 TIME: 12:38 Exam/Review of Systems Vital Signs Vitals Vital Signs Date Temp Pulse Resp B/P (MAP) Pulse Ox O2 O2 Flow FiO2 Time Delivery Rate 04/22/19 101 17 136/68 100 Nasal 3.0 12:00 (90) Cannula 04/22/19 98.2 04:00 04/21/19 21 16:52 Intake and Output 04/21/19 04/21/19 04/22/19 1515:00 23:00 07:00 IntakeIntake Total 0 ml 0 ml 0 ml OutputOutput Total 0 ml 0 ml BalanceBalance 0 ml 0 ml 0 ml Exam Exam Review of Systems: CONSTITUTIONAL: No fevers, chills. PULMONARY: No sob CARDIOVASCULAR: No chest pain/palpitations GASTROINTESTINAL: No nausea/vomiting. GENITOURINARY: No hematuria/dysuria. MUSCULOSKELETAL: mild pain in foot PSYCHIATRIC: The patient denies depression. NEUROLOGIC: No weakness Constitutional: alert Psych: no complaints Head: normocephalic ENMT: mucosa pink and moist Neck: supple, jvd (9 cm water) Respiratory: diminished breath sounds (at bases/B) Cardiovascular: irregular rhythm Gastrointestinal: soft, non-tender Musculoskeletal: muscle weakness (mild generalized) Extremities: other (covered by dressing) Labs Result Diagram: 04/22/19 1133 04/22/19 1133 Results 24hrs Laboratory Tests Test 04/21/19 20:10 04/22/19 08:35 04/22/19 11:22 04/22/19 11:33 Bedside Glucose 81 75 71 White Blood Count 14.3 H Red Blood Count 4.04 L Hemoglobin 12.2 Hematocrit 38.3 Mean Corpuscular 94.8 Volume Mean Corpuscular 30.2 Hemoglobin Mean Corpuscular 31.9 L Hemoglobin Concent Red Cell 18.2 H Distribution Width Platelet Count 180 Mean Platelet Volume 9.7 Immature 0.600 H Granulocytes % Neutrophils % 83.8 H Lymphocytes % 4.6 L Monocytes % 7.8 Eosinophils % 2.2 Basophils % 1.0 Nucleated Red Blood 0.0 Cells % Immature 0.090 H Granulocytes # Neutrophils # 12.0 H Lymphocytes # 0.7 L Monocytes # 1.1 H Eosinophils # 0.3 Basophils # 0.1 Nucleated Red Blood 0.0 Cells # Prothrombin Time 20.0 H Prothrombin Time 1.6 Ratio INR International 1.69 Normalized Ratio Activated 45.0 H Partial Thromboplast Time Sodium Level 137 Potassium Level 4.7 Chloride Level 100 Carbon Dioxide Level 22 Anion Gap 15 H Blood Urea Nitrogen 24 H Creatinine 4.39 H Est Glomerular 10 L Filtrat Rate mL/min Glucose Level 83 Calcium Level 8.4 Total Bilirubin 1.0 Direct Bilirubin 0.00 Indirect Bilirubin 1.0 Aspartate Amino 15 Transf (AST/SGOT) Alanine 12 L Aminotransferase (AL T/SGPT) Alkaline Phosphatase 134 H Total Protein 7.8 Albumin 3.4 Globulin 4.40 H Albumin/Globulin 0.77 Ratio Medications Medications Current Medications Acetaminophen (Tylenol Tab) 650 mg Q4H PRN PO FOR FEVER; Start 04/17/19 at 05:00 Albuterol (Proventil 0.083% (Neb)) 2.5 mg Q4H RESP THERAPY PRN NEB WHEEZING AND SOB; Start 04/17/19 at 05:00 Atorvastatin Calcium (Lipitor) 20 mg QHS PO Last administered on 04/21/19at 20:11; Admin Dose 20 MG; Start 04/17/19 at 21:00 Benzonatate (Tessalon) 100 mg Q6 PRN PO COUGH; Start 04/17/19 at 05:00 Bisacodyl (Dulcolax) 5 mg BID PO Last administered on 04/21/19 20:11; Admin Dose 5 MG; Start 04/17/19 at 09:00 Folic Acid (Folic Acid) 1 mg DAILY PO Last administered on 04/19/19at 08:13; Admin Dose 1 MG; Start 04/17/19 at 09:00 Gabapentin (Neurontin) 300 mg TID PO Last administered on 04/21/19at 20:11; Admin Dose 300 MG; Start 04/17/19 at 09:00 Albuterol/ Ipratropium (Duoneb) 3 ml Q4H RESP THERAPY INH Last administered on 04/22/19 09:33; Admin Dose 3 ML; Start 04/17/19 at 05:00 Multivit/Ca Carb/ B Cmplx/FA/Prenat (Suzie-Paula) 1 tab DAILY PO Last administered on 04/19/19at 08:14; Admin Dose 1 TAB; Start 04/17/19 at 09:00 Ondansetron HCl (Zofran Tab) 4 mg Q6H PRN PO NAUSEA AND/OR VOMITING; Start 04/17/19 at 05:00 Polyethylene Glycol (Miralax) 17 gm DAILY PO Last administered on 04/19/19at 08:15; Admin Dose 17 GM; Start 04/17/19 at 09:00 Morphine Sulfate (morphine) 2 mg Q4H PRN IV SEVERE PAIN LEVEL 7-10 Last administered on 04/22/19at 05:55; Admin Dose 2 MG; Start 04/17/19 at 05:00 Diagnostic Test (Pha) (Accu-Chek) 1 ea 02 XX ; Start 04/18/19 at 02:00 Insulin Aspart (Novolog Insulin Pen) NOVOLOG *MILD* ALGORITHM WITH MEALS BEDTIME SC ; Start 04/17/19 at 08:00 Miscellaneous Information (Pending Sant Order For Wound Care) This patient davis... PRN PRN XX WOUND CARE; Start 04/17/19 at 05:00 Miscellaneous Information 1 ea NOTE XX ; Start 04/17/19 at 05:30 Glucose (Glutose) 15 gm Q15M PRN PO DECREASED GLUCOSE; Start 04/17/19 at 05:30 Glucose (Glutose) 22.5 gm Q15M PRN PO DECREASED GLUCOSE; Start 04/17/19 at 05:30 Dextrose (D50w Syringe) 25 ml Q15M PRN IV DECREASED GLUCOSE; Start 04/17/19 at 05:30 Dextrose (D50w Syringe) 50 ml Q15M PRN IV DECREASED GLUCOSE; Start 04/17/19 at 05:30 Glucagon (Glucagen) 1 mg Q15M PRN IM DECREASED GLUCOSE; Start 04/17/19 at 05:30 Glucose (Glutose) 15 gm Q15M PRN BUCCAL DECREASED GLUCOSE; Start 04/17/19 at 05:30 Guaifenesin/ Codeine Phosphate (Robitussin Ac Liquid Cup) 5 ml TID PO Last administered on 04/21/19 20:11; Admin Dose 5 ML; Start 04/17/19 at 09:00 Bisacodyl (Dulcolax Supp) 10 mg DAILY PRN [place] CONSTIPATION Last administered on 04/19/19 05:04; Admin Dose 10 MG; Start 04/17/19 at 10:00 Lubiprostone (Amitiza) 24 mcg BID PO Last administered on 04/21/19 20:11; Admin Dose 24 MCG; Start 04/17/19 at 12:00 Heparin Sodium (Porcine) (Heparin (1000 Units/ml)) 4,000 unit AFTER DIALYSIS CATHETER Last administered on 04/21/19 06:12; Admin Dose 3,700 UNIT; Start 04/17/19 at 12:00 Tramadol HCl (Ultram) 50 mg Q6H PRN PO MODERATE PAIN LEVEL 4-6 Last adminis tered on 04/19/19at 09:37; Admin Dose 50 MG; Start 04/18/19 at 11:00 Hydromorphone HCl (Dilaudid) 4 mg Q6H PRN PO PAIN 7-10/10; Start 04/18/19 at 11:30 Povidone Iodine (Povidone-Iodine) 1 applic DAILY TOP Last administered on 04/20/19 08:59; Admin Dose 1 APPLIC; Start 04/18/19 at 13:00 Pantoprazole (Protonix Tab) 40 mg BID@0600,1800 PO Last administered on 04/19/19 18:05; Admin Dose 40 MG; Start 04/18/19 at 18:00 Albumin Human 100 ml @ 100 mls/hr WITH DIALYSIS PRN IV SBP <90 DURING DIALYSIS Last administered on 04/21/19 02:58; Admin Dose 100 MLS/HR; Start 04/18/19 at 15:00 Sodium Hypochlorite (Dakins Diluted ()) 1 applic TID TP Last administered on 04/21/19at 20:12; Admin Dose 1 APPLIC; Start 04/18/19 at 21:00 Zolpidem Tartrate (Ambien) 5 mg HS PRN PO INSOMNIA Last administered on 04/19/19 02:40; Admin Dose 5 MG; Start 04/19/19 at 03:00 Metoclopramide HCl (Reglan) 5 mg Q6 IV Last administered on 04/22/19 05:23; Admin Dose 5 MG; Start 04/19/19 at 18:00 Lorazepam (Ativan) 0.5 mg Q6H PRN IV AGITATION/ANXIETY Last administered on 04/20/19at 23:30; Admin Dose 0.5 MG; Start 04/20/19 at 17:30 Phenylephrine HCl 40 mg/Dextrose 250 ml @ 37.5 mls/hr TITRATE IV Last administered on 04/22/19at 11:09; Admin Dose 37.5 MLS/HR; Start 04/20/19 at 19:00 Linezolid (Zyvox) 600 mg BID PO Last administered on 04/21/19at 23:16; Admin Dose 600 MG; Start 04/21/19 at 14:30 Gentamicin Sulfate (Gentamicin Iv Per Pharmacy) GENTAMICIN PER PHARMACY NOTE XX ; Start 04/21/19 at 13:30 Gentamicin Sulfate 50 ml @ 100 mls/hr AFTER DIALYSIS IVPB ; Start 04/22/19 at 08:00 LOUIS COLLIER April 22, 2019 12:41
--- NOTE | 2019-04-22 16:39 | CONS ---
Assessment/Plan Assessment/Plan Hospital Course (Demo Recall) ID PROGRESS NOTE CURRENT ABX: DAY #=>Zyvox + GENT s/p Vanco IV + Merrem 04/22/19 1133 04/22/19 1133 24H INTERVAL SUMMARY * a/a/o -- coping well, smiling, she is disappointed that BLEXT debridement was deferred due to hypotension requiring initiation of pressors * Zyvox was not given since last night as patient was placed NPO -- I will change to IV Zyvox * Indwelling: Right chest PermCath. IMAGING * 04/22/19 RUEXT US: 1. No evidence of a deep vein thrombosis involving the right upper extremity. * 04/20/19 MRI of right ankle revealed suspicion for early osteomyelitis of the posterior calcaneus. 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 Please see full report in the chart MICRO/OTHER * (-)MRSA NARES * 04/18/19 BCX (-) * 04/17/19 RIGHT FOOT CX: WOUND CULTURE Final NO GROWTH AFTER 3 DAYS * 04/17/19 LEFT FOOT CX: WOUND CULTURE Final Organism 1 ESCHERICHIA COLI QUANTITY 3+ Organism 2 MORGANELLA MORGANII SSP MORG. QUANTITY 1+ Organism 3 VANCO RESISTANT ENTEROCOCCUS QUANTITY 1+ . MULTI DRUG RESISTANT ORGANISM Organism 4 METHICILLIN RESISTANT S.AUREUS QUANTITY ISOLATED FROM BROTH ONLY . MULTI DRUG RESISTANT ORGANISM E COLI MORMOSP VRE M.I.C. RX M.I.C. RX M.I.C. RX --------- --- --------- --- --------- --- AMPICILLIN >=32 R >=32 R CEFAZOLIN R CEFOTAXIME S S CIPROFLOXACIN >=4 R >=4 R CLINDAMYCIN DOXYCYCLINE ERYTHROMYCIN GENTAMICIN <=1 S <=1 S GENTAMICIN 120 S LEVOFLOXACIN >=8 R >=8 R LINEZOLID 1 S OXACILLIN PENICILLIN-G >=64 R QUINUPRISTIN/DALFOPRISTIN 0.5 S RIFAMPIN STREPTOMYCIN 300 R VANCOMYCIN >=32 R TOBRAMYCIN <=1 S <=1 S TRIMETHOPRIM/SULFAMETHOXAZOLE >=320 R >=320 R MRSA M.I.C. RX --------- --- AMPICILLIN CEFAZOLIN R CEFOTAXIME CIPROFLOXACIN >=8 R CLINDAMYCIN <=0.25 S DOXYCYCLINE S ERYTHROMYCIN <=0.25 S GENTAMICIN GENTAMICIN 120 LEVOFLOXACIN >=8 R LINEZOLID >>>>>>>>>>>>>>>>>>>>>>>>>>>>>>>>>>>>>>>>? OXACILLIN >=4 R PENICILLIN-G >=0.5 R QUINUPRISTIN/DALFOPRISTIN RIFAMPIN <=0.5 S STREPTOMYCIN 300 VANCOMYCIN <=0.5 S TOBRAMYCIN TRIMETHOPRIM/SULFAMETHOXAZOLE <=10 S PHYSICAL EXAMINATION: GENERAL: VSS, NAD, HEENT: AT, NC, NECK: WNL CHEST: Equal chest rise bilaterally without dyspnea on observation ABD: Soft, ND EXTREMITIES: Warm, dry SKIN: No rash, no diaphoresis ID ASSESSMENT 63 yo [place] with: 1. Sepsis w/shock 2. Bilateral lower extremities gangrene/OM 3. End-stage renal disease 4. Peripheral arterial disease, status post right posterior tibial artery angioplasty 03/01/19 5. Diabetes 6. Failure to thrive 7. Afib s/p RVR (-)MRSA Nares ABX ALLERGIES: NKDA INVASIVES: PIV CURRENT ABX: DAY # =>Zyvox + GENT s/p Vanco IV + Merrem ID RECOMMENDATIONS/PLAN: 1. Zyvox was not given since last night as patient was placed NPO -- I will change to IV Zyvox 2. Continue ABX -- debridement deferred due to hypotension . Consultation Date/Type/Reason Admit Date/Time April 17, 2019 at 00:03 Initial Consult Date 04/20/19 Requesting Provider: ALONZO KNOWLES MD Date/Time of Note DATE: 04/22/19 TIME: 16:39 Exam/Review of Systems Exam Vitals Vital Signs Date Temp Pulse Resp B/P (MAP) Pulse Ox O2 O2 Flow FiO2 Time Delivery Rate 04/22/19 87 18 97/50 (66) 100 Room Air 16:15 04/22/19 98.7 13:00 04/22/19 3.0 12:00 04/21/19 21 16:52 Intake and Output 04/21/19 04/21/19 04/22/19 1515:00 23:00 07:00 IntakeIntake Total 0 ml 0 ml 0 ml OutputOutput Total 0 ml 0 ml BalanceBalance 0 ml 0 ml 0 ml Results Result Diagram: 04/22/19 1133 04/22/19 1133 Results 24hrs Laboratory Tests Test 04/21/19 20:10 04/22/19 08:35 04/22/19 11:22 04/22/19 11:33 Bedside Glucose 81 75 71 White Blood Count 14.3 H Red Blood Count 4.04 L Hemoglobin 12.2 Hematocrit 38.3 Mean Corpuscular 94.8 Volume Mean Corpuscular 30.2 Hemoglobin Mean Corpuscular 31.9 L Hemoglobin Concent Red Cell 18.2 H Distribution Width Platelet Count 180 Mean Platelet Volume 9.7 Immature 0.600 H Granulocytes % Neutrophils % 83.8 H Lymphocytes % 4.6 L Monocytes % 7.8 Eosinophils % 2.2 Basophils % 1.0 Nucleated Red Blood 0.0 Cells % Immature 0.090 H Granulocytes # Neutrophils # 12.0 H Lymphocytes # 0.7 L Monocytes # 1.1 H Eosinophils # 0.3 Basophils # 0.1 Nucleated Red Blood 0.0 Cells # Prothrombin Time 20.0 H Prothrombin Time 1.6 Ratio INR International 1.69 Normalized Ratio Activated 45.0 H Partial Thromboplast Time Sodium Level 137 Potassium Level 4.7 Chloride Level 100 Carbon Dioxide Level 22 Anion Gap 15 H Blood Urea Nitrogen 24 H Creatinine 4.39 H Est Glomerular 10 L Filtrat Rate mL/min Glucose Level 83 Calcium Level 8.4 Total Bilirubin 1.0 Direct Bilirubin 0.00 Indirect Bilirubin 1.0 Aspartate Amino 15 Transf (AST/SGOT) Alanine 12 L Aminotransferase (AL T/SGPT) Alkaline Phosphatase 134 H Total Protein 7.8 Albumin 3.4 Globulin 4.40 H Albumin/Globulin 0.77 Ratio Medications Medication Current Medications Acetaminophen (Tylenol Tab) 650 mg Q4H PRN PO FOR FEVER; Start 04/17/19 at 05:00 Albuterol (Proventil 0.083% (Neb)) 2.5 mg Q4H RESP THERAPY PRN NEB WHEEZING AND SOB; Start 04/17/19 at 05:00 Atorvastatin Calcium (Lipitor) 20 mg QHS PO Last administered on 04/21/19 20:11; Admin Dose 20 MG; Start 04/17/19 at 21:00 Benzonatate (Tessalon) 100 mg Q6 PRN PO COUGH; Start 04/17/19 at 05:00 Bisacodyl (Dulcolax) 5 mg BID PO Last administered on 04/21/19 20:11; Admin Dose 5 MG; Start 04/17/19 at 09:00 Folic Acid (Folic Acid) 1 mg DAILY PO Last administered on 04/19/19 08:13; Admin Dose 1 MG; Start 04/17/19 at 09:00 Gabapentin (Neurontin) 300 mg TID PO Last administered on 04/21/19 20:11; Admin Dose 300 MG; Start 04/17/19 at 09:00 Albuterol/ Ipratropium (Duoneb) 3 ml Q4H RESP THERAPY INH Last administered on 04/22/19 13:10; Admin Dose 3 ML; Start 04/17/19 at 05:00 Multivit/Ca Carb/ B Cmplx/FA/Prenat (Suzie-Paula) 1 tab DAILY PO Last administered on 04/19/19 08:14; Admin Dose 1 TAB; Start 04/17/19 at 09:00 Ondansetron HCl (Zofran Tab) 4 mg Q6H PRN PO NAUSEA AND/OR VOMITING; Start 04/17/19 at 05:00 Polyethylene Glycol (Miralax) 17 gm DAILY PO Last administered on 04/19/19 08:15; Admin Dose 17 GM; Start 04/17/19 at 09:00 Morphine Sulfate (morphine) 2 mg Q4H PRN IV SEVERE PAIN LEVEL 7-10 Last administered on 04/22/19 05:55; Admin Dose 2 MG; Start 04/17/19 at 05:00 Diagnostic Test (Pha) (Accu-Chek) 1 ea 02 XX ; Start 04/18/19 at 02:00 Insulin Aspart (Novolog Insulin Pen) NOVOLOG *MILD* ALGORITHM WITH MEALS BEDTIME SC ; Start 04/17/19 at 08:00 Miscellaneous Information (Pending Santyl Order For Wound Care) This patient davis... PRN PRN XX WOUND CARE; Start 04/17/19 at 05:00 Miscellaneous Information 1 ea NOTE XX ; Start 04/17/19 at 05:30 Glucose (Glutose) 15 gm Q15M PRN PO DECREASED GLUCOSE; Start 04/17/19 at 05:30 Glucose (Glutose) 22.5 gm Q15M PRN PO DECREASED GLUCOSE; Start 04/17/19 at 05:30 Dextrose (D50w Syringe) 25 ml Q15M PRN IV DECREASED GLUCOSE; Start 04/17/19 at 05:30 Dextrose (D50w Syringe) 50 ml Q15M PRN IV DECREASED GLUCOSE; Start 04/17/19 at 05:30 Glucagon (Glucagen) 1 mg Q15M PRN IM DECREASED GLUCOSE; Start 04/17/19 at 05:30 Glucose (Glutose) 15 gm Q15M PRN BUCCAL DECREASED GLUCOSE; Start 04/17/19 at 05 :30 Guaifenesin/ Codeine Phosphate (Robitussin Ac Liquid Cup) 5 ml TID PO Last administered on 04/21/19at 20:11; Admin Dose 5 ML; Start 04/17/19 at 09:00 Bisacodyl (Dulcolax Supp) 10 mg DAILY PRN [place] CONSTIPATION Last administered on 04/19/19at 05:04; Admin Dose 10 MG; Start 04/17/19 at 10:00 Lubiprostone (Amitiza) 24 mcg BID PO Last administered on 04/21/19at 20:11; Admin Dose 24 MCG; Start 04/17/19 at 12:00 Heparin Sodium (Porcine) (Heparin (1000 Units/ml)) 4,000 unit AFTER DIALYSIS CATHETER Last administered on 04/21/19at 06:12; Admin Dose 3,700 UNIT; Start 04/17/19 at 12:00 Tramadol HCl (Ultram) 50 mg Q6H PRN PO MODERATE PAIN LEVEL 4-6 Last administered on 04/19/19at 09:37; Admin Dose 50 MG; Start 04/18/19 at 11:00 Hydromorphone HCl (Dilaudid) 4 mg Q6H PRN PO PAIN 7-10/10; Start 04/18/19 at 11:30 Povidone Iodine (Povidone-Iodine) 1 applic DAILY TOP Last administered on 04/20/19 08:59; Admin Dose 1 APPLIC; Start 04/18/19 at 13:00 Pantoprazole (Protonix Tab) 40 mg BID@0600,1800 PO Last administered on 04/19/19 18:05; Admin Dose 40 MG; Start 04/18/19 at 18:00 Albumin Human 100 ml @ 100 mls/hr WITH DIALYSIS PRN IV SBP <90 DURING DIALYSIS Last administered on 04/21/19 02:58; Admin Dose 100 MLS/HR; Start 04/18/19 at 15:00 Sodium Hypochlorite (Dakins Diluted ()) 1 applic TID TP Last administered on 04/21/19 20:12; Admin Dose 1 APPLIC; Start 04/18/19 at 21:00 Zolpidem Tartrate (Ambien) 5 mg HS PRN PO INSOMNIA Last administered on 04/19/19 02:40; Admin Dose 5 MG; Start 04/19/19 at 03:00 Metoclopramide HCl (Reglan) 5 mg Q6 IV Last administered on 04/22/19 13:06; Admin Dose 5 MG; Start 04/19/19 at 18:00 Lorazepam (Ativan) 0.5 mg Q6H PRN IV AGITATION/ANXIETY Last administered on 04/20/19 23:30; Admin Dose 0.5 MG; Start 04/20/19 at 17:30 Phenylephrine HCl 40 mg/Dextrose 250 ml @ 37.5 mls/hr TITRATE IV Last administered on 04/22/19 11:09; Admin Dose 37.5 MLS/HR; Start 04/20/19 at 19:00 Linezolid (Zyvox) 600 mg BID PO Last administered on 04/21/19 23:16; Admin Dose 600 MG; Start 04/21/19 at 14:30 Gentamicin Sulfate (Gentamicin Iv Per Pharmacy) GENTAMICIN PER PHARMACY NOTE XX ; Start 04/21/19 at 13:30 Gentamicin Sulfate 50 ml @ 100 mls/hr AFTER DIALYSIS IVPB ; Start 04/22/19 at 08:00 FRANCA DE LA FUENTE NP April 22, 2019 16:39
[2019-04-22] MEDS: LINEZOLID 600 MG/300 ML (PMX) 300 ML IVPB SCH (20:40)
[2019-04-22] MEDS: ATORVASTATIN 20 MG TAB PO SCH (20:41)
[2019-04-22] MEDS: BISACODYL 10 MG SUPP PR PRN (22:22)
[2019-04-22] MEDS: ZOLPIDEM 5 MG TAB PO PRN (22:26)
--- NOTE | 2019-04-22 23:29 | CONS ---
Assessment/Plan Assessment/Plan Assessment/Plan (Daily) Bilateral foot gangrene diabetic ulcers PAD DM2 with peripheral neuropathy Charcot neuroarthropathy CAD ESRD on HD Hx of a-fib Plan Surgery postponed once patient is more stable. Discussed with nursing staff. Patient was previously optimized from vascular standpoint with Dr. Lemus on 03/31/19 with patent anterior tibial arteries, and right posterior tibial artery angioplasty. Continue with IV abx per recommendations. X-rays and MRI reviewed. Remain non weight bearing to bilateral feet. Wound cultures showing MRSA, e.coli, morganella, and VRE. Consultation Date/Type/Reason Admit Date/Time April 17, 2019 at 00:03 Initial Consult Date 04/20/19 Requesting Provider: ALONZO KNOWLES MD Date/Time of Note DATE: 04/22/19 TIME: 23:28 24 HR Interval Summary Free Text/Dictation No acute events overnight. Exam/Review of Systems Exam Vitals Vital Signs Date Temp Pulse Resp B/P (MAP) Pulse Ox O2 O2 Flow FiO2 Time Delivery Rate 04/22/19 98 24 97 21 20:25 04/22/19 103/49 20:15 (67) 04/22/19 98.5 19:45 04/22/19 2.0 18:07 04/22/19 Room Air 18:00 Intake and Output 04/21/19 04/21/19 04/22/19 1515:00 23:00 07:00 IntakeIntake Total 0 ml 0 ml 0 ml OutputOutput Total 0 ml 0 ml BalanceBalance 0 ml 0 ml 0 ml Exam dressings were clean dry and intact. No strikethrough noted. There is malodor appreciated. Results Result Diagram: 04/22/19 1133 04/22/19 1133 Results 24hrs Laboratory Tests Test 04/22/19 08:35 04/22/19 11:22 04/22/19 11:33 04/22/19 17:22 Bedside Glucose 75 71 79 White Blood Count 14.3 H Red Blood Count 4.04 L Hemoglobin 12.2 Hematocrit 38.3 Mean Corpuscular 94.8 Volume Mean Corpuscular 30.2 Hemoglobin Mean Corpuscular 31.9 L Hemoglobin Concent Red Cell 18.2 H Distribution Width Platelet Count 180 Mean Platelet Volume 9.7 Immature 0.600 H Granulocytes % Neutrophils % 83.8 H Lymphocytes % 4.6 L Monocytes % 7.8 Eosinophils % 2.2 Basophils % 1.0 Nucleated Red Blood 0.0 Cells % Immature 0.090 H Granulocytes # Neutrophils # 12.0 H Lymphocytes # 0.7 L Monocytes # 1.1 H Eosinophils # 0.3 Basophils # 0.1 Nucleated Red Blood 0.0 Cells # Prothrombin Time 20.0 H Prothrombin Time 1.6 Ratio INR International 1.69 Normalized Ratio Activated 45.0 H Partial Thromboplast Time Sodium Level 137 Potassium Level 4.7 Chloride Level 100 Carbon Dioxide Level 22 Anion Gap 15 H Blood Urea Nitrogen 24 H Creatinine 4.39 H Est Glomerular 10 L Filtrat Rate mL/min Glucose Level 83 Calcium Level 8.4 Total Bilirubin 1.0 Direct Bilirubin 0.00 Indirect Bilirubin 1.0 Aspartate Amino 15 Transf (AST/SGOT) Alanine 12 L Aminotransferase (AL T/SGPT) Alkaline Phosphatase 134 H Total Protein 7.8 Albumin 3.4 Globulin 4.40 H Albumin/Globulin 0.77 Ratio Test 04/22/19 20:44 Bedside Glucose 96 Medications Medication Current Medications Acetaminophen (Tylenol Tab) 650 mg Q4H PRN PO FOR FEVER; Start 04/17/19 at 05:00 Albuterol (Proventil 0.083% (Neb)) 2.5 mg Q4H RESP THERAPY PRN NEB WHEEZING AND SOB; Start 04/17/19 at 05:00 Atorvastatin Calcium (Lipitor) 20 mg QHS PO Last administered on 04/22/19at 20:41; Admin Dose 20 MG; Start 04/17/19 at 21:00 Benzonatate (Tessalon) 100 mg Q6 PRN PO COUGH; Start 04/17/19 at 05:00 Bisacodyl (Dulcolax) 5 mg BID PO Last administered on 04/22/19at 20:41; Admin Dose 5 MG; Start 04/17/19 at 09:00 Folic Acid (Folic Acid) 1 mg DAILY PO Last administered on 04/19/19at 08:13; Admin Dose 1 MG; Start 04/17/19 at 09:00 Gabapentin (Neurontin) 300 mg TID PO Last administered on 04/22/19at 20:42; Admin Dose 300 MG; Start 04/17/19 at 09:00 Multivit/Ca Carb/ B Cmplx/FA/Prenat (Suzie-Paula) 1 tab DAILY PO Last administered on 04/19/19at 08:14; Admin Dose 1 TAB; Start 04/17/19 at 09:00 Ondansetron HCl (Zofran Tab) 4 mg Q6H PRN PO NAUSEA AND/OR VOMITING; Start 04/17/19 at 05:00 Polyethylene Glycol (Miralax) 17 gm DAILY PO Last administered on 04/19/19 08:15; Admin Dose 17 GM; Start 04/17/19 at 09:00 Morphine Sulfate (morphine) 2 mg Q4H PRN IV SEVERE PAIN LEVEL 7-10 Last administered on 04/22/19 18:53; Admin Dose 2 MG; Start 04/17/19 at 05:00 Diagnostic Test (Pha) (Accu-Chek) 1 ea 02 XX ; Start 04/18/19 at 02:00 Insulin Aspart (Novolog Insulin Pen) NOVOLOG *MILD* ALGORITHM WITH MEALS BEDTIME SC ; Start 04/17/19 at 08:00 Miscellaneous Information (Pending [facility] Order For Wound Care) This patient davis... PRN PRN XX WOUND CARE; Start 04/17/19 at 05:00 Miscellaneous Information 1 ea NOTE XX ; Start 04/17/19 at 05:30 Glucose (Glutose) 15 gm Q15M PRN PO DECREASED GLUCOSE; Start 04/17/19 at 05:30 Glucose (Glutose) 22.5 gm Q15M PRN PO DECREASED GLUCOSE; Start 04/17/19 at 05 :30 Dextrose (D50w Syringe) 25 ml Q15M PRN IV DECREASED GLUCOSE; Start 04/17/19 at 05:30 Dextrose (D50w Syringe) 50 ml Q15M PRN IV DECREASED GLUCOSE; Start 04/17/19 at 05:30 Glucagon (Glucagen) 1 mg Q15M PRN IM DECREASED GLUCOSE; Start 04/17/19 at 05:30 Glucose (Glutose) 15 gm Q15M PRN BUCCAL DECREASED GLUCOSE; Start 04/17/19 at 05:30 Guaifenesin/ Codeine Phosphate (Robitussin Ac Liquid Cup) 5 ml TID PO Last administered on 04/22/19at 20:41; Admin Dose 5 ML; Start 04/17/19 at 09:00 Bisacodyl (Dulcolax Supp) 10 mg DAILY PRN [place] CONSTIPATION Last administered on 04/22/19 22:22; Admin Dose 10 MG; Start 04/17/19 at 10:00 Lubiprostone (Amitiza) 24 mcg BID PO Last administered on 04/22/19 20:42; Admin Dose 24 MCG; Start 04/17/19 at 12:00 Heparin Sodium (Porcine) (Heparin (1000 Units/ml)) 4,000 unit AFTER DIALYSIS CATHETER Last administered on 04/21/19 06:12; Admin Dose 3,700 UNIT; Start 04/17/19 at 12:00 Tramadol HCl (Ultram) 50 mg Q6H PRN PO MODERATE PAIN LEVEL 4-6 Last administe red on 04/19/19 09:37; Admin Dose 50 MG; Start 04/18/19 at 11:00 Hydromorphone HCl (Dilaudid) 4 mg Q6H PRN PO PAIN 7-10/10; Start 04/18/19 at 11:30 Povidone Iodine (Povidone-Iodine) 1 applic DAILY TOP Last administered on 04/20/19 08:59; Admin Dose 1 APPLIC; Start 04/18/19 at 13:00 Pantoprazole (Protonix Tab) 40 mg BID@0600,1800 PO Last administered on 04/22/19 18:46; Admin Dose 40 MG; Start 04/18/19 at 18:00 Albumin Human 100 ml @ 100 mls/hr WITH DIALYSIS PRN IV SBP <90 DURING DIALYSIS Last administered on 04/21/19 02:58; Admin Dose 100 MLS/HR; Start 04/18/19 at 15:00 Sodium Hypochlorite (Dakins Diluted ()) 1 applic TID TP Last administered on 04/22/19 20:41; Admin Dose 1 APPLIC; Start 04/18/19 at 21:00 Zolpidem Tartrate (Ambien) 5 mg HS PRN PO INSOMNIA Last administered on 04/22/19 22:26; Admin Dose 5 MG; Start 04/19/19 at 03:00 Metoclopramide HCl (Reglan) 5 mg Q6 IV Last administered on 04/22/19 18:43; Admin Dose 5 MG; Start 04/19/19 at 18:00 Lorazepam (Ativan) 0.5 mg Q6H PRN IV AGITATION/ANXIETY Last administered on 5/23/19at 23:30; Admin Dose 0.5 MG; Start 04/20/19 at 17:30 Phenylephrine HCl 40 mg/Dextrose 250 ml @ 37.5 mls/hr TITRATE IV Last administered on 04/22/19at 11:09; Admin Dose 37.5 MLS/HR; Start 04/20/19 at 19:00 Gentamicin Sulfate (Gentamicin Iv Per Pharmacy) GENTAMICIN PER PHARMACY NOTE XX ; Start 04/21/19 at 13:30 Gentamicin Sulfate 50 ml @ 100 mls/hr AFTER DIALYSIS IVPB ; Start 04/22/19 at 08:00 Albuterol/ Ipratropium (Duoneb) 3 ml Q6H RESP THERAPY INH Last administered on 04/22/19at 20:26; Admin Dose 3 ML; Start 04/22/19 at 20:00 Linezolid 300 ml @ 300 mls/hr Q12 IVPB Last administered on 04/22/19at 20:40; Admin Dose 300 MLS/HR; Start 04/22/19 at 21:00 ISAIAS ZARATE DPM April 22, 2019 23:29
[2019-04-23] VITALS (86 sets, daily range): BP systolic 62–127; BP diastolic 27–108; PULSE 76–105; RESP 8–45
[2019-04-23] MEDS: METOCLOPRAMIDE 10 MG INJ IV SCH ×5 (00:25→23:05)
[2019-04-23] MEDS: ACCU-CHEK XX SCH (01:23)
[2019-04-23] MEDS: ALBUTEROL/IPRATROPIUM (NEB) 3 ML AMP INH SCH ×4 (01:23→20:22)
[2019-04-23] MEDS: morphine 2 MG INJ IV PRN ×2 (02:41→23:05)
[2019-04-23] MEDS: PANTOPRAZOLE (EC) 40 MG TAB PO SCH ×2 (06:16→17:52)
[2019-04-23] MEDS: INSULIN ASPART [NOVOLOG] 3 ML PEN SC SCH ×4 (07:35→20:23)
[2019-04-23] MEDS: POLYETHYLENE GLYCOL 17 GM PACKET PO SCH (09:42)
[2019-04-23] MEDS: POVIDONE IODINE 10% 28.4 GM OINT TOP SCH (09:42)
[2019-04-23] MEDS: BALSAM PERU/CASTOR OIL 60 GM TUBE TOP SCH ×2 (09:42→20:24)
[2019-04-23] MEDS: FOLIC ACID 1 MG TAB PO SCH (09:43)
[2019-04-23] MEDS: LINEZOLID 600 MG/300 ML (PMX) 300 ML IVPB SCH ×2 (09:43→20:16)
[2019-04-23] MEDS: DAKINS 0.0125%(1/40) 473 ML SOLUTION TP SCH ×3 (09:43→20:24)
[2019-04-23] MEDS: GABAPENTIN 300 MG CAP PO SCH ×3 (09:43→20:16)
[2019-04-23] MEDS: BISACODYL (EC) 5 MG TAB PO SCH ×2 (09:43→20:16)
[2019-04-23] MEDS: MULTIVIT/CA CARB/B CMPLX/FA TAB PO SCH ×2 (09:43→13:13)
[2019-04-23] MEDS: GUAIFENESIN/CODEINE 5ML CUP PO SCH ×3 (09:43→21:00)
[2019-04-23] MEDS: LUBIPROSTONE 24 MCG CAP PO SCH ×2 (09:43→20:16)
--- NOTE | 2019-04-23 11:04 | CONS ---
Assessment/Plan Assessment/Plan Hospital Course (Demo Recall) ID PROGRESS NOTE CURRENT ABX: DAY #=>Zyvox + GENT + Start Flagyl s/p Vanco IV + Merrem 04/23/19 0400 04/23/19 0400 24H INTERVAL SUMMARY * Intermittent agitation w/aggressive/combative behavior per RN notes last night --?ICU Psychosis * PO Zyvox ABX was held yesterday am due to NPO status prior to procedure - -she became hypotensive and debridement was deferred for IV Perssor support -- When I arrived in pm I started her on IV Zyvox -- she is disappointed that BLEXT debridement was deferred due to hypotension requiring initiation of pressors * No fevers, WBC IMPROVING, malodorous BLEXT wounds need debridement * Indwelling: Right chest PermCath. IMAGING * 04/22/19 RUEXT US: 1. No evidence of a deep vein thrombosis involving the right upper extremity. * 04/20/19 MRI of right ankle revealed suspicion for early osteomyelitis of the posterior calcaneus. 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 Please see full report in the chart MICRO/OTHER * (-)MRSA NARES * 04/18/19 BCX (-) * 04/17/19 RIGHT FOOT CX: WOUND CULTURE Final NO GROWTH AFTER 3 DAYS * 04/17/19 LEFT FOOT CX: WOUND CULTURE Final Organism 1 ESCHERICHIA COLI QUANTITY 3+ Organism 2 MORGANELLA MORGANII SSP MORG. QUANTITY 1+ Organism 3 VANCO RESISTANT ENTEROCOCCUS QUANTITY 1+ . MULTI DRUG RESISTANT ORGANISM Organism 4 METHICILLIN RESISTANT S.AUREUS QUANTITY ISOLATED FROM BROTH ONLY . MULTI DRUG RESISTANT ORGANISM E COLI MORMOSP VRE M.I.C. RX M.I.C. RX M.I.C. RX --------- --- --------- --- --------- --- AMPICILLIN >=32 R >=32 R CEFAZOLIN R CEFOTAXIME S S CIPROFLOXACIN >=4 R >=4 R CLINDAMYCIN DOXYCYCLINE ERYTHROMYCIN GENTAMICIN <=1 S <=1 S GENTAMICIN 120 S LEVOFLOXACIN >=8 R >=8 R LINEZOLID 1 S OXACILLIN PENICILLIN-G >=64 R QUINUPRISTIN/DALFOPRISTIN 0.5 S RIFAMPIN STREPTOMYCIN 300 R VANCOMYCIN >=32 R TOBRAMYCIN <=1 S <=1 S TRIMETHOPRIM/SULFAMETHOXAZOLE >=320 R >=320 R MRSA M.I.C. RX --------- --- AMPICILLIN CEFAZOLIN R CEFOTAXIME CIPROFLOXACIN >=8 R CLINDAMYCIN <=0.25 S DOXYCYCLINE S ERYTHROMYCIN <=0.25 S GENTAMICIN GENTAMICIN 120 LEVOFLOXACIN >=8 R LINEZOLID >>>>>>>>>>>>>>>>>>>>>>>>>>>>>>>>>>>>>>>>? OXACILLIN >=4 R PENICILLIN-G >=0.5 R QUINUPRISTIN/DALFOPRISTIN RIFAMPIN <=0.5 S STREPTOMYCIN 300 VANCOMYCIN <=0.5 S TOBRAMYCIN TRIMETHOPRIM/SULFAMETHOXAZOLE <=10 S PHYSICAL EXAMINATION: GENERAL: VSS, NAD, HEENT: AT, NC, NECK: WNL CHEST: Equal chest rise bilaterally without dyspnea on observation ABD: Soft, ND EXTREMITIES: Warm, dry SKIN: No rash, no diaphoresis ID ASSESSMENT 63 yo [place] with: 1. Sepsis w/shock 2. Bilateral lower extremities gangrene/OM 3. End-stage renal disease 4. Peripheral arterial disease, status post right posterior tibial artery angioplasty 03/01/19 5. Diabetes 6. Failure to thrive 7. Afib s/p RVR 8. QUERY Toxic metabolic encephalopathy ? Confusion w/combative behavior last night ? (-)MRSA Nares ABX ALLERGIES: NKDA INVASIVES: PIV CURRENT ABX: DAY # =>Zyvox + GENT + Start Flagyl s/p Vanco IV + Merrem ID RECOMMENDATIONS/PLAN: 1. Continue IV ABX -- Flagyl added as no empiric anaerobic coverage onboard 2. Debridement when stable . Consultation Date/Type/Reason Admit Date/Time April 17, 2019 at 00:03 Initial Consult Date 04/20/19 Requesting Provider: ALONZO KNOWLES MD Date/Time of Note DATE: 04/23/19 TIME: 10:58 Exam/Review of Systems Exam Vitals Vital Signs Date Temp Pulse Resp B/P (MAP) Pulse Ox O2 O2 Flow FiO2 Time Delivery Rate 04/23/19 84 22 94/61 (72) 09:00 04/23/19 97.9 97 Room Air 08:00 04/22/19 21 20:25 04/22/19 2.0 18:07 Intake and Output 04/22/19 04/22/19 04/23/19 1515:00 23:00 07:00 IntakeIntake Total 91.875 ml 377.00 ml 136.0 ml OutputOutput Total 0 ml 0 ml BalanceBalance 91.875 ml 377.00 ml 136.0 ml Results Result Diagram: 04/23/19 0400 04/23/19 0400 Results 24hrs Laboratory Tests Test 04/22/19 11:22 04/22/19 11:33 04/22/19 17:22 04/22/19 20:44 Bedside Glucose 71 79 96 White Blood Count 14.3 H Red Blood Count 4.04 L Hemoglobin 12.2 Hematocrit 38.3 Mean Corpuscular 94.8 Volume Mean Corpuscular 30.2 Hemoglobin Mean Corpuscular 31.9 L Hemoglobin Concent Red Cell 18.2 H Distribution Width Platelet Count 180 Mean Platelet Volume 9.7 Immature 0.600 H Granulocytes % Neutrophils % 83.8 H Lymphocytes % 4.6 L Monocytes % 7.8 Eosinophils % 2.2 Basophils % 1.0 Nucleated Red Blood 0.0 Cells % Immature 0.090 H Granulocytes # Neutrophils # 12.0 H Lymphocytes # 0.7 L Monocytes # 1.1 H Eosinophils # 0.3 Basophils # 0.1 Nucleated Red Blood 0.0 Cells # Prothrombin Time 20.0 H Prothrombin Time 1.6 Ratio INR International 1.69 Normalized Ratio Activated 45.0 H Partial Thromboplast Time Sodium Level 137 Potassium Level 4.7 Chloride Level 100 Carbon Dioxide Level 22 Anion Gap 15 H Blood Urea Nitrogen 24 H Creatinine 4.39 H Est Glomerular 10 L Filtrat Rate mL/min Glucose Level 83 Calcium Level 8.4 Total Bilirubin 1.0 Direct Bilirubin 0.00 Indirect Bilirubin 1.0 Aspartate Amino 15 Transf (AST/SGOT) Alanine 12 L Aminotransferase (AL T/SGPT) Alkaline Phosphatase 134 H Total Protein 7.8 Albumin 3.4 Globulin 4.40 H Albumin/Globulin 0.77 Ratio Test 04/23/19 04:00 04/23/19 07:54 White Blood Count 11.8 H Red Blood Count 3.90 L Hemoglobin 11.7 L Hematocrit 36.6 L Mean Corpuscular 93.8 Volume Mean Corpuscular 30.0 Hemoglobin Mean Corpuscular 32.0 Hemoglobin Concent Red Cell 18.0 H Distribution Width Platelet Count 177 Mean Platelet Volume 10.3 Immature 0.800 H Granulocytes % Neutrophils % 81.2 H Lymphocytes % 5.2 L Monocytes % 8.7 Eosinophils % 3.2 Basophils % 0.9 Nucleated Red Blood 0.0 Cells % Immature 0.090 H Granulocytes # Neutrophils # 9.6 H Lymphocytes # 0.6 L Monocytes # 1.0 H Eosinophils # 0.4 Basophils # 0.1 Nucleated Red Blood 0.0 Cells # Sodium Level 135 Potassium Level 4.9 Chloride Level 99 Carbon Dioxide Level 22 Anion Gap 14 H Blood Urea Nitrogen 26 H Creatinine 4.85 H Est Glomerular 9 L Filtrat Rate mL/min Glucose Level 111 Calcium Level 8.5 Bedside Glucose 90 Medications Medication Current Medications Acetaminophen (Tylenol Tab) 650 mg Q4H PRN PO FOR FEVER; Start 04/17/19 at 05:00 Albuterol (Proventil 0.083% (Neb)) 2.5 mg Q4H RESP THERAPY PRN NEB WHEEZING AND SOB; Start 04/17/19 at 05:00 Atorvastatin Calcium (Lipitor) 20 mg QHS PO Last administered on 04/22/19at 20:41; Admin Dose 20 MG; Start 04/17/19 at 21:00 Benzonatate (Tessalon) 100 mg Q6 PRN PO COUGH; Start 04/17/19 at 05:00 Bisacodyl (Dulcolax) 5 mg BID PO Last administered on 04/23/19at 09:43; Admin Dose 5 MG; Start 04/17/19 at 09:00 Folic Acid (Folic Acid) 1 mg DAILY PO Last administered on 04/23/19 09:43; Admin Dose 1 MG; Start 04/17/19 at 09:00 Gabapentin (Neurontin) 300 mg TID PO Last administered on 04/23/19 09:43; Admin Dose 300 MG; Start 04/17/19 at 09:00 Multivit/Ca Carb/ B Cmplx/FA/Prenat (Suzie-Paula) 1 tab DAILY PO Last administered on 04/23/19at 09:43; Admin Dose 1 TAB; Start 04/17/19 at 09:00 Ondansetron HCl (Zofran Tab) 4 mg Q6H PRN PO NAUSEA AND/OR VOMITING; Start 04/17/19 at 05:00 Polyethylene Glycol (Miralax) 17 gm DAILY PO Last administered on 04/23/19at 09:42; Admin Dose 17 GM; Start 04/17/19 at 09:00 Morphine Sulfate (morphine) 2 mg Q4H PRN IV SEVERE PAIN LEVEL 7-10 Last administered on 04/23/19at 02:41; Admin Dose 2 MG; Start 04/17/19 at 05:00 Diagnostic Test (Pha) (Accu-Chek) 1 ea 02 XX ; Start 04/18/19 at 02:00 Insulin Aspart (Novolog Insulin Pen) NOVOLOG *MILD* ALGORITHM WITH MEALS BEDTIME SC ; Start 04/17/19 at 08:00 Miscellaneous Information (Pending [facility] Order For Wound Care) This patient davis... PRN PRN XX WOUND CARE; Start 04/17/19 at 05:00 Miscellaneous Information 1 ea NOTE XX ; Start 04/17/19 at 05:30 Glucose (Glutose) 15 gm Q15M PRN PO DECREASED GLUCOSE; Start 04/17/19 at 05:30 Glucose (Glutose) 22.5 gm Q15M PRN PO DECREASED GLUCOSE; Start 04/17/19 at 05:30 Dextrose (D50w Syringe) 25 ml Q15M PRN IV DECREASED GLUCOSE; Start 04/17/19 at 05:30 Dextrose (D50w Syringe) 50 ml Q15M PRN IV DECREASED GLUCOSE; Start 04/17/19 at 05:30 Glucagon (Glucagen) 1 mg Q15M PRN IM DECREASED GLUCOSE; Start 04/17/19 at 05:30 Glucose (Glutose) 15 gm Q15M PRN BUCCAL DECREASED GLUCOSE; Start 04/17/19 at 05:30 Guaifenesin/ Codeine Phosphate (Robitussin Ac Liquid Cup) 5 ml TID PO Last administered on 04/23/19at 09:43; Admin Dose 5 ML; Start 04/17/19 at 09:00 Bisacodyl (Dulcolax Supp) 10 mg DAILY PRN AR CONSTIPATION Last administered on 04/22/19 22:22; Admin Dose 10 MG; Start 04/17/19 at 10:00 Lubiprostone (Amitiza) 24 mcg BID PO Last administered on 04/23/19 09:43; Admin Dose 24 MCG; Start 04/17/19 at 12:00 Heparin Sodium (Porcine) (Heparin (1000 Units/ml)) 4,000 unit AFTER DIALYSIS CATHETER Last administered on 04/21/19 06:12; Admin Dose 3,700 UNIT; Start 04/17/19 at 12:00 Tramadol HCl (Ultram) 50 mg Q6H PRN PO MODERATE PAIN LEVEL 4-6 Last administered on 04/19/19 09:37; Admin Dose 50 MG; Start 04/18/19 at 11:00 Hydromorphone HCl (Dilaudid) 4 mg Q6H PRN PO PAIN 7-10/10; Start 04/18/19 at 11:30 Povidone Iodine (Povidone-Iodine) 1 applic DAILY TOP Last administered on 04/23/19 09:42; Admin Dose 1 APPLIC; Start 04/18/19 at 13:00 Pantoprazole (Protonix Tab) 40 mg BID@0600,1800 PO Last administered on 04/23/19 06:16; Admin Dose 40 MG; Start 04/18/19 at 18:00 Albumin Human 100 ml @ 100 mls/hr WITH DIALYSIS PRN IV SBP <90 DURING DIALYSIS Last administered on 04/21/19 02:58; Admin Dose 100 MLS/HR; Start 04/18/19 at 15:00 Sodium Hypochlorite (Dakins Diluted ()) 1 applic TID TP Last administered on 04/23/19 09:43; Admin Dose 1 APPLIC; Start 04/18/19 at 21:00 Zolpidem Tartrate (Ambien) 5 mg HS PRN PO INSOMNIA Last administered on 04/22/19 22:26; Admin Dose 5 MG; Start 04/19/19 at 03:00 Metoclopramide HCl (Reglan) 5 mg Q6 IV Last administered on 04/23/19 06:17; Admin Dose 5 MG; Start 04/19/19 at 18:00 Lorazepam (Ativan) 0.5 mg Q6H PRN IV AGITATION/ANXIETY Last administered on 04/20/19at 23:30; Admin Dose 0.5 MG; Start 04/20/19 at 17:30 Phenylephrine HCl 40 mg/Dextrose 250 ml @ 37.5 mls/hr TITRATE IV Last administered on 04/22/19 11:09; Admin Dose 37.5 MLS/HR; Start 04/20/19 at 19:00 Gentamicin Sulfate (Gentamicin Iv Per Pharmacy) GENTAMICIN PER PHARMACY NOTE XX ; Start 04/21/19 at 13:30 Gentamicin Sulfate 50 ml @ 100 mls/hr AFTER DIALYSIS IVPB ; Start 04/22/19 at 08:00 Albuterol/ Ipratropium (Duoneb) 3 ml Q6H RESP THERAPY INH Last administered on 04/22/19at 20:26; Admin Dose 3 ML; Start 04/22/19 at 20:00 Linezolid 300 ml @ 300 mls/hr Q12 IVPB Last administered on 04/23/19at 09:43; Admin Dose 300 MLS/HR; Start 04/22/19 at 21:00 FRANCA DE LA FUENTE NP April 23, 2019 11:04
--- NOTE | 2019-04-23 11:13 | CONS ---
Assessment/Plan Assessment/Plan Hospital Course (Demo Recall) IMPRESSION: 1. Abdominal pain, rule out peptic ulcer disease, rule out gastritis. Rule out also bile duct stone, given the history of elevated alkaline phosphatase. Patient has severe gastritis 2. End-stage renal disease on dialysis. 3. Peripheral vascular disease. 4. Chronic atrial fibrillation. 5. Status post cholecystectomy. 6. Diabetes. 7. Hypertension. 8. Depression. 9. Lower extremity wound. 10. Atrial fibrillation rate is controlled with digoxin and amiodarone Plan Continue antibiotic Continue all supportive care and PPI. BLEXT debridement was deferred due to hypotension requiring initiation of pressors. Reschedule per surgery Consultation Date/Type/Reason Admit Date/Time April 17, 2019 at 00:03 Initial Consult Date 04/20/19 Type of Consult GI Requesting Provider: ALONZO KNOWLES MD Date/Time of Note DATE: 04/23/19 TIME: 11:11 24 HR Interval Summary Subjective hx not possible: pt non-verbal, pt critical status Exam/Review of Systems Exam Vitals Vital Signs Date Temp Pulse Resp B/P (MAP) Pulse Ox O2 O2 Flow FiO2 Time Delivery Rate 04/23/19 84 22 94/61 (72) 09:00 04/23/19 97.9 97 Room Air 08:00 04/22/19 21 20:25 04/22/19 2.0 18:07 Intake and Output 04/22/19 04/22/19 04/23/19 1515:00 23:00 07:00 IntakeIntake Total 91.875 ml 377.00 ml 136.0 ml OutputOutput Total 0 ml 0 ml BalanceBalance 91.875 ml 377.00 ml 136.0 ml Constitutional: non-verbal Psych: confusion Head: normocephalic, atraumatic Eyes: nl conjunctiva, nl lids ENMT: nl external ears & nose, nl nasal mucosa & septum, mucosa pink and moist Neck: supple, non-tender Respiratory: clear to auscultation Cardiovascular: regular rate and rhythm, nl pulses Gastrointestinal: soft, bowel sounds Results Result Diagram: 04/23/19 0400 04/23/19 0400 Results 24hrs Laboratory Tests Test 04/22/19 11:22 04/22/19 11:33 04/22/19 17:22 04/22/19 20:44 Bedside Glucose 71 79 96 White Blood Count 14.3 H Red Blood Count 4.04 L Hemoglobin 12.2 Hematocrit 38.3 Mean Corpuscular 94.8 Volume Mean Corpuscular 30.2 Hemoglobin Mean Corpuscular 31.9 L Hemoglobin Concent Red Cell 18.2 H Distribution Width Platelet Count 180 Mean Platelet Volume 9.7 Immature 0.600 H Granulocytes % Neutrophils % 83.8 H Lymphocytes % 4.6 L Monocytes % 7.8 Eosinophils % 2.2 Basophils % 1.0 Nucleated Red Blood 0.0 Cells % Immature 0.090 H Granulocytes # Neutrophils # 12.0 H Lymphocytes # 0.7 L Monocytes # 1.1 H Eosinophils # 0.3 Basophils # 0.1 Nucleated Red Blood 0.0 Cells # Prothrombin Time 20.0 H Prothrombin Time 1.6 Ratio INR International 1.69 Normalized Ratio Activated 45.0 H Partial Thromboplast Time Sodium Level 137 Potassium Level 4.7 Chloride Level 100 Carbon Dioxide Level 22 Anion Gap 15 H Blood Urea Nitrogen 24 H Creatinine 4.39 H Est Glomerular 10 L Filtrat Rate mL/min Glucose Level 83 Calcium Level 8.4 Total Bilirubin 1.0 Direct Bilirubin 0.00 Indirect Bilirubin 1.0 Aspartate Amino 15 Transf (AST/SGOT) Alanine 12 L Aminotransferase (AL T/SGPT) Alkaline Phosphatase 134 H Total Protein 7.8 Albumin 3.4 Globulin 4.40 H Albumin/Globulin 0.77 Ratio Test 04/23/19 04:00 04/23/19 07:54 White Blood Count 11.8 H Red Blood Count 3.90 L Hemoglobin 11.7 L Hematocrit 36.6 L Mean Corpuscular 93.8 Volume Mean Corpuscular 30.0 Hemoglobin Mean Corpuscular 32.0 Hemoglobin Concent Red Cell 18.0 H Distribution Width Platelet Count 177 Mean Platelet Volume 10.3 Immature 0.800 H Granulocytes % Neutrophils % 81.2 H Lymphocytes % 5.2 L Monocytes % 8.7 Eosinophils % 3.2 Basophils % 0.9 Nucleated Red Blood 0.0 Cells % Immature 0.090 H Granulocytes # Neutrophils # 9.6 H Lymphocytes # 0.6 L Monocytes # 1.0 H Eosinophils # 0.4 Basophils # 0.1 Nucleated Red Blood 0.0 Cells # Sodium Level 135 Potassium Level 4.9 Chloride Level 99 Carbon Dioxide Level 22 Anion Gap 14 H Blood Urea Nitrogen 26 H Creatinine 4.85 H Est Glomerular 9 L Filtrat Rate mL/min Glucose Level 111 Calcium Level 8.5 Bedside Glucose 90 Medications Medication Current Medications Acetaminophen (Tylenol Tab) 650 mg Q4H PRN PO FOR FEVER; Start 04/17/19 at 05:00 Albuterol (Proventil 0.083% (Neb)) 2.5 mg Q4H RESP THERAPY PRN NEB WHEEZING AND SOB; Start 04/17/19 at 05:00 Atorvastatin Calcium (Lipitor) 20 mg QHS PO Last administered on 04/22/19 20:41; Admin Dose 20 MG; Start 04/17/19 at 21:00 Benzonatate (Tessalon) 100 mg Q6 PRN PO COUGH; Start 04/17/19 at 05:00 Bisacodyl (Dulcolax) 5 mg BID PO Last administered on 04/23/19 09:43; Admin Dose 5 MG; Start 04/17/19 at 09:00 Folic Acid (Folic Acid) 1 mg DAILY PO Last administered on 04/23/19 09:43; Admin Dose 1 MG; Start 04/17/19 at 09:00 Gabapentin (Neurontin) 300 mg TID PO Last administered on 04/23/19 09:43; Admin Dose 300 MG; Start 04/17/19 at 09:00 Multivit/Ca Carb/ B Cmplx/FA/Prenat (Suzie-Paula) 1 tab DAILY PO Last administered on 04/23/19 09:43; Admin Dose 1 TAB; Start 04/17/19 at 09:00 Ondansetron HCl (Zofran Tab) 4 mg Q6H PRN PO NAUSEA AND/OR VOMITING; Start 04/17/19 at 05:00 Polyethylene Glycol (Miralax) 17 gm DAILY PO Last administered on 04/23/19 09:42; Admin Dose 17 GM; Start 04/17/19 at 09:00 Morphine Sulfate (morphine) 2 mg Q4H PRN IV SEVERE PAIN LEVEL 7-10 Last administered on 04/23/19 02:41; Admin Dose 2 MG; Start 04/17/19 at 05:00 Diagnostic Test (Pha) (Accu-Chek) 1 ea 02 XX ; Start 04/18/19 at 02:00 Insulin Aspart (Novolog Insulin Pen) NOVOLOG *MILD* ALGORITHM WITH MEALS BEDTIME SC ; Start 04/17/19 at 08:00 Miscellaneous Information (Pending Santyl Order For Wound Care) This patient davis... PRN PRN XX WOUND CARE; Start 04/17/19 at 05:00 Miscellaneous Information 1 ea NOTE XX ; Start 04/17/19 at 05:30 Glucose (Glutose) 15 gm Q15M PRN PO DECREASED GLUCOSE; Start 04/17/19 at 05:30 Glucose (Glutose) 22.5 gm Q15M PRN PO DECREASED GLUCOSE; Start 04/17/19 at 05:30 Dextrose (D50w Syringe) 25 ml Q15M PRN IV DECREASED GLUCOSE; Start 04/17/19 at 05:30 Dextrose (D50w Syringe) 50 ml Q15M PRN IV DECREASED GLUCOSE; Start 04/17/19 at 05:30 Glucagon (Glucagen) 1 mg Q15M PRN IM DECREASED GLUCOSE; Start 04/17/19 at 05:30 Glucose (Glutose) 15 gm Q15M PRN BUCCAL DECREASED GLUCOSE; Start 04/17/19 at 05:30 Guaifenesin/ Codeine Phosphate (Robitussin Ac Liquid Cup) 5 ml TID PO Last administered on 04/23/19at 09:43; Admin Dose 5 ML; Start 04/17/19 at 09:00 Bisacodyl (Dulcolax Supp) 10 mg DAILY PRN [place] CONSTIPATION Last administered on 04/22/19at 22:22; Admin Dose 10 MG; Start 04/17/19 at 10:00 Lubiprostone (Amitiza) 24 mcg BID PO Last administered on 04/23/19at 09:43; Ad min Dose 24 MCG; Start 04/17/19 at 12:00 Heparin Sodium (Porcine) (Heparin (1000 Units/ml)) 4,000 unit AFTER DIALYSIS CATHETER Last administered on 04/21/19at 06:12; Admin Dose 3,700 UNIT; Start 04/17/19 at 12:00 Tramadol HCl (Ultram) 50 mg Q6H PRN PO MODERATE PAIN LEVEL 4-6 Last administered on 04/19/19at 09:37; Admin Dose 50 MG; Start 04/18/19 at 11:00 Hydromorphone HCl (Dilaudid) 4 mg Q6H PRN PO PAIN 7-10/10; Start 04/18/19 at 11:30 Povidone Iodine (Povidone-Iodine) 1 applic DAILY TOP Last administered on 04/23/19 09:42; Admin Dose 1 APPLIC; Start 04/18/19 at 13:00 Pantoprazole (Protonix Tab) 40 mg BID@0600,1800 PO Last administered on 04/23/19 06:16; Admin Dose 40 MG; Start 04/18/19 at 18:00 Albumin Human 100 ml @ 100 mls/hr WITH DIALYSIS PRN IV SBP <90 DURING DIALYSIS Last administered on 04/21/19 02:58; Admin Dose 100 MLS/HR; Start 04/18/19 at 15:00 Sodium Hypochlorite (Dakins Diluted ()) 1 applic TID TP Last administered on 04/23/19 09:43; Admin Dose 1 APPLIC; Start 04/18/19 at 21:00 Zolpidem Tartrate (Ambien) 5 mg HS PRN PO INSOMNIA Last administered on 9at 22:26; Admin Dose 5 MG; Start 04/19/19 at 03:00 Metoclopramide HCl (Reglan) 5 mg Q6 IV Last administered on 04/23/19 06:17; Admin Dose 5 MG; Start 04/19/19 at 18:00 Lorazepam (Ativan) 0.5 mg Q6H PRN IV AGITATION/ANXIETY Last administered on 04/20/19 23:30; Admin Dose 0.5 MG; Start 04/20/19 at 17:30 Phenylephrine HCl 40 mg/Dextrose 250 ml @ 37.5 mls/hr TITRATE IV Last administered on 04/22/19 11:09; Admin Dose 37.5 MLS/HR; Start 04/20/19 at 19:00 Gentamicin Sulfate (Gentamicin Iv Per Pharmacy) GENTAMICIN PER PHARMACY NOTE XX ; Start 04/21/19 at 13:30 Gentamicin Sulfate 50 ml @ 100 mls/hr AFTER DIALYSIS IVPB ; Start 04/22/19 at 08:00 Albuterol/ Ipratropium (Duoneb) 3 ml Q6H RESP THERAPY INH Last administered on 04/22/19 20:26; Admin Dose 3 ML; Start 04/22/19 at 20:00 Linezolid 300 ml @ 300 mls/hr Q12 IVPB Last administered on 04/23/19 09:43; Admin Dose 300 MLS/HR; Start 04/22/19 at 21:00 Metronidazole 100 ml @ 100 mls/hr Q8 IVPB ; Start 04/23/19 at 14:00; Status UNV SOL DE LEÓN MD April 23, 2019 11:12
[2019-04-23] MEDS: metroNIDAZOLE 500 MG/NS (PMX) 100 ML IVPB SCH ×2 (11:58→22:23)
--- NOTE | 2019-04-23 12:04 | PN ---
Date/Time of Note Date/Time of Note DATE: 04/23/19 TIME: 12:04 Assessment/Plan VTE Prophylaxis Risk score (from Ns)>0 risk: 10 SCD applied (from [facility] [place], [place]): No SCD contraindicated: bilateral LE trauma Pharmacological prophylaxis: NA/contraindicated Pharm contraindication: anticoag not tolerated Lines/Catheters IV Catheter Type (from [facility]): perma cath Central line still needed: Yes Urinary Cath still in place: No Assessment/Plan Hospital Course 1. Abdominal pain with some nausea. CT of the abdomen and pelvis showed severe left hydronephrosis, status post cholecystectomy. LFTs within normal limit except mildly elevated alkaline phosphatase. Lipase is 22. Likely secondary to constipation vs gastritis vs gastroparesis abdominal pain is still persistent. Versus choledocholithiasis 2. Severe left hydronephrosis secondary to UPJ junction, no urinary stone. probably chronic , no intervention per urology 3. Bilateral lower extremity ulcers with gangrene, followed by Dr. Schultz/ [place] 4. End-stage renal disease, on hemodialysis. 5. Hypotension, on dialysis. could be secondary to infected ulcers, hold bp m eds 6. Diabetes mellitus type II. 7. Hypertension. 8. Peripheral vascular disease. 9. History of gastritis. 10. History of gastroparesis. 11. History of atrial fibrillation. 12 anasarca 13. Afib, RVR, controlled now, 14. SIRS Assessment/Plan -contact Isolation for VRE wound -constipat. relief -surgery for revision, possible amputation of feet -strict BS control -c.e phos. binding agents -DVT prophylaxis is unable to impose due to anemia and expecting surgical interv entions. -GI proph. Protonix -prealbumin level -pt is stable for surgery on feet, possible bilateral amputation -c/w HD -dr Flowers is for cardio -dr Coronado, podiatry consult is appreciated, postponed surgery -ID per dr Webb - No evidence of a deep vein thrombosis involving the right upper extremity. Result Diagram: 04/23/19 0400 04/23/19 0400 Results 24hrs Laboratory Tests Test 04/22/19 17:22 04/22/19 20:44 04/23/19 04:00 04/23/19 07:54 Bedside Glucose 79 96 90 White Blood Count 11.8 H Red Blood Count 3.90 L Hemoglobin 11.7 L Hematocrit 36.6 L Mean Corpuscular 93.8 Volume Mean Corpuscular 30.0 Hemoglobin Mean Corpuscular 32.0 Hemoglobin Concent Red Cell 18.0 H Distribution Width Platelet Count 177 Mean Platelet Volume 10.3 Immature 0.800 H Granulocytes % Neutrophils % 81.2 H Lymphocytes % 5.2 L Monocytes % 8.7 Eosinophils % 3.2 Basophils % 0.9 Nucleated Red Blood 0.0 Cells % Immature 0.090 H Granulocytes # Neutrophils # 9.6 H Lymphocytes # 0.6 L Monocytes # 1.0 H Eosinophils # 0.4 Basophils # 0.1 Nucleated Red Blood 0.0 Cells # Sodium Level 135 Potassium Level 4.9 Chloride Level 99 Carbon Dioxide Level 22 Anion Gap 14 H Blood Urea Nitrogen 26 H Creatinine 4.85 H Est Glomerular 9 L Filtrat Rate mL/min Glucose Level 111 Calcium Level 8.5 Test 04/23/19 11:56 Bedside Glucose 109 Subjective 24 Hr Interval Summary Subjective hx not possible: pt critical status Gastrointestinal: constipation (2 days) Musculoskeletal: bone/joint pain; No no complaints, No back pain, No neck pain, No restricted range of motion, No swelling, No other Exam/Review of Systems Exam Vitals Vital Signs Date Temp Pulse Resp B/P (MAP) Pulse Ox O2 O2 Flow FiO2 Time Delivery Rate 04/23/19 84 22 94/61 (72) 09:00 04/23/19 97.9 97 Room Air 08:00 04/22/19 21 20:25 04/22/19 2.0 18:07 Intake and Output 04/22/19 04/22/19 04/23/19 1515:00 23:00 07:00 IntakeIntake Total 91.875 ml 377.00 ml 136.0 ml OutputOutput Total 0 ml 0 ml BalanceBalance 91.875 ml 377.00 ml 136.0 ml Exam chest perm cath Constitutional: alert, oriented Head: normocephalic Neck: supple Respiratory: diminished breath sounds Cardiovascular: irregular rhythm Gastrointestinal: soft Musculoskeletal: swelling (bilateral feet wounds) Results Results 24hrs Laboratory Tests Test 04/22/19 17:22 04/22/19 20:44 04/23/19 04:00 04/23/19 07:54 Bedside Glucose 79 96 90 White Blood Count 11.8 H Red Blood Count 3.90 L Hemoglobin 11.7 L Hematocrit 36.6 L Mean Corpuscular 93.8 Volume Mean Corpuscular 30.0 Hemoglobin Mean Corpuscular 32.0 Hemoglobin Concent Red Cell 18.0 H Distribution Width Platelet Count 177 Mean Platelet Volume 10.3 Immature 0.800 H Granulocytes % Neutrophils % 81.2 H Lymphocytes % 5.2 L Monocytes % 8.7 Eosinophils % 3.2 Basophils % 0.9 Nucleated Red Blood 0.0 Cells % Immature 0.090 H Granulocytes # Neutrophils # 9.6 H Lymphocytes # 0.6 L Monocytes # 1.0 H Eosinophils # 0.4 Basophils # 0.1 Nucleated Red Blood 0.0 Cells # Sodium Level 135 Potassium Level 4.9 Chloride Level 99 Carbon Dioxide Level 22 Anion Gap 14 H Blood Urea Nitrogen 26 H Creatinine 4.85 H Est Glomerular 9 L Filtrat Rate mL/min Glucose Level 111 Calcium Level 8.5 Test 04/23/19 11:56 Bedside Glucose 109 Medications Medication Current Medications Acetaminophen (Tylenol Tab) 650 mg Q4H PRN PO FOR FEVER; Start 04/17/19 at 05:00 Albuterol (Proventil 0.083% (Neb)) 2.5 mg Q4H RESP THERAPY PRN NEB WHEEZING AND SOB; Start 04/17/19 at 05:00 Atorvastatin Calcium (Lipitor) 20 mg QHS PO Last administered on 04/22/19 20:41; Admin Dose 20 MG; Start 04/17/19 at 21:00 Benzonatate (Tessalon) 100 mg Q6 PRN PO COUGH; Start 04/17/19 at 05:00 Bisacodyl (Dulcolax) 5 mg BID PO Last administered on 04/23/19 09:43; Admin Dose 5 MG; Start 04/17/19 at 09:00 Folic Acid (Folic Acid) 1 mg DAILY PO Last administered on 04/23/19 09:43; Admin Dose 1 MG; Start 04/17/19 at 09:00 Gabapentin (Neurontin) 300 mg TID PO Last administered on 04/23/19 09:43; Admin Dose 300 MG; Start 04/17/19 at 09:00 Multivit/Ca Carb/ B Cmplx/FA/Prenat (Suzie-Paula) 1 tab DAILY PO Last administered on 04/23/19 09:43; Admin Dose 1 TAB; Start 04/17/19 at 09:00 Ondansetron HCl (Zofran Tab) 4 mg Q6H PRN PO NAUSEA AND/OR VOMITING; Start 04/17/19 at 05:00 Polyethylene Glycol (Miralax) 17 gm DAILY PO Last administered on 04/23/19at 09:42; Admin Dose 17 GM; Start 04/17/19 at 09:00 Morphine Sulfate (morphine) 2 mg Q4H PRN IV SEVERE PAIN LEVEL 7-10 Last administered on 04/23/19at 02:41; Admin Dose 2 MG; Start 04/17/19 at 05:00 Diagnostic Test (Pha) (Accu-Chek) 1 ea 02 XX ; Start 04/18/19 at 02:00 Insulin Aspart (Novolog Insulin Pen) NOVOLOG *MILD* ALGORITHM WITH MEALS BEDTIME SC ; Start 04/17/19 at 08:00 Miscellaneous Information (Pending Santyl Order For Wound Care) This patient davis... PRN PRN XX WOUND CARE; Start 04/17/19 at 05:00 Miscellaneous Information 1 ea NOTE XX ; Start 04/17/19 at 05:30 Glucose (Glutose) 15 gm Q15M PRN PO DECREASED GLUCOSE; Start 04/17/19 at 05:30 Glucose (Glutose) 22.5 gm Q15M PRN PO DECREASED GLUCOSE; Start 04/17/19 at 05:30 Dextrose (D50w Syringe) 25 ml Q15M PRN IV DECREASED GLUCOSE; Start 04/17/19 at 05:30 Dextrose (D50w Syringe) 50 ml Q15M PRN IV DECREASED GLUCOSE; Start 04/17/19 at 05:30 Glucagon (Glucagen) 1 mg Q15M PRN IM DECREASED GLUCOSE; Start 04/17/19 at 05:30 Glucose (Glutose) 15 gm Q15M PRN BUCCAL DECREASED GLUCOSE; Start 04/17/19 at 05:30 Guaifenesin/ Codeine Phosphate (Robitussin Ac Liquid Cup) 5 ml TID PO Last administered on 04/23/19at 09:43; Admin Dose 5 ML; Start 04/17/19 at 09:00 Bisacodyl (Dulcolax Supp) 10 mg DAILY PRN [place] CONSTIPATION Last administered on 04/22/19at 22:22; Admin Dose 10 MG; Start 04/17/19 at 10:00 Lubiprostone (Amitiza) 24 mcg BID PO Last administered on 04/23/19 09:43; Admin Dose 24 MCG; Start 04/17/19 at 12:00 Heparin Sodium (Porcine) (Heparin (1000 Units/ml)) 4,000 unit AFTER DIALYSIS CATHETER Last administered on 04/21/19 06:12; Admin Dose 3,700 UNIT; Start 04/17/19 at 12:00 Tramadol HCl (Ultram) 50 mg Q6H PRN PO MODERATE PAIN LEVEL 4-6 Last administered on 04/19/19 09:37; Admin Dose 50 MG; Start 04/18/19 at 11:00 Hydromorphone HCl (Dilaudid) 4 mg Q6H PRN PO PAIN 7-10/10; Start 04/18/19 at 11:30 Povidone Iodine (Povidone-Iodine) 1 applic DAILY TOP Last administered on 04/23/19 09:42; Admin Dose 1 APPLIC; Start 04/18/19 at 13:00 Pantoprazole (Protonix Tab) 40 mg BID@0600,1800 PO Last administered on 06:16; Admin Dose 40 MG; Start 04/18/19 at 18:00 Albumin Human 100 ml @ 100 mls/hr WITH DIALYSIS PRN IV SBP <90 DURING DIALYSIS Last administered on 04/21/19 02:58; Admin Dose 100 MLS/HR; Start 04/18/19 at 15:00 Sodium Hypochlorite (Dakins Diluted (40)) 1 applic TID TP Last administered on 04/23/19 09:43; Admin Dose 1 APPLIC; Start 04/18/19 at 21:00 Zolpidem Tartrate (Ambien) 5 mg HS PRN PO INSOMNIA Last administered on 04/22/19 22:26; Admin Dose 5 MG; Start 04/19/19 at 03:00 Metoclopramide HCl (Reglan) 5 mg Q6 IV Last administered on 04/23/19 11:57; Admin Dose 5 MG; Start 04/19/19 at 18:00 Lorazepam (Ativan) 0.5 mg Q6H PRN IV AGITATION/ANXIETY Last administered on 04/20/19 23:30; Admin Dose 0.5 MG; Start 04/20/19 at 17:30 Phenylephrine HCl 40 mg/Dextrose 250 ml @ 37.5 mls/hr TITRATE IV Last administered on 04/22/19at 11:09; Admin Dose 37.5 MLS/HR; Start 04/20/19 at 19:00 Gentamicin Sulfate (Gentamicin Iv Per Pharmacy) GENTAMICIN PER PHARMACY NOTE XX ; Start 04/21/19 at 13:30 Gentamicin Sulfate 50 ml @ 100 mls/hr AFTER DIALYSIS IVPB ; Start 04/22/19 at 08:00 Albuterol/ Ipratropium (Duoneb) 3 ml Q6H RESP THERAPY INH Last administered on 04/22/19at 20:26; Admin Dose 3 ML; Start 04/22/19 at 20:00 Linezolid 300 ml @ 300 mls/hr Q12 IVPB Last administered on 04/23/19at 09:43; Admin Dose 300 MLS/HR; Start 04/22/19 at 21:00 Metronidazole 100 ml @ 100 mls/hr Q8 IVPB Last administered on 04/23/19at 11:58; Admin Dose 100 MLS/HR; Start 04/23/19 at 12:00 KENNY TERRAZAS April 23, 2019 12:04
--- NOTE | 2019-04-23 12:39 | CONS ---
Assessment/Plan Assessment/Plan Hospital Course (Demo Recall) IMPRESSION: 1. Atrial fibrillation-mainly rate controlled s/p digoxin IVP and on amio 2. Hypotension-remains on pressors 3. Preoperative for lower extremity foot debridement.-Echo EF 60-65/no sig valve abnl/Neg trop x 2 4. End-stage renal disease, on hemodialysis. 5. Dyslipidemia. 6. Lower extremity nonhealing ulcerations. 7. Presumed peripheral arterial disease. 8. Coagulopath-mild improvement 9. Anemia. 10. Thrombocytopenia-slowly improving. Recc: -IN ICU -serial ecg's -Continue statin -Contineu abx's and f/u cx data -Start PO amio -start asa -local wond care -IF BP improves/stabilizes patient ok to proceed to surgery at moderate cv risk as now on low dose neosynephrine. [place] postponed due to ongoing Hypotension requiring pressors Consultation Date/Type/Reason Admit Date/Time April 17, 2019 at 00:03 Initial Consult Date 04/20/19 Type of Consult Cardiology Reason for Consultation Preop/Hotn Requesting Provider: ALONZO KNOWLES MD Date/Time of Note DATE: 04/23/19 TIME: 12:36 Exam/Review of Systems Vital Signs Vitals Vital Signs Date Temp Pulse Resp B/P (MAP) Pulse Ox O2 O2 Flow FiO2 Time Delivery Rate 04/23/19 86 8 88/55 (66) 99 12:15 04/23/19 98.0 Room Air 12:00 04/22/19 21 20:25 04/22/19 2.0 18:07 Intake and Output 04/22/19 04/22/19 04/23/19 1515:00 23:00 07:00 IntakeIntake Total 91.875 ml 377.00 ml 136.0 ml OutputOutput Total 0 ml 0 ml BalanceBalance 91.875 ml 377.00 ml 136.0 ml Exam Exam Review of Systems: CONSTITUTIONAL: No fevers, chills. PULMONARY: No sob CARDIOVASCULAR: No chest pain/palpitations GASTROINTESTINAL: No nausea/vomiting. GENITOURINARY: No hematuria/dysuria. MUSCULOSKELETAL: No myagias/arthalgias. PSYCHIATRIC: The patient denies depression. NEUROLOGIC: No weakness Constitutional: alert, oriented Psych: no complaints Head: normocephalic ENMT: mucosa pink and moist Neck: supple, jvd (9 cm water) Respiratory: diminished breath sounds (at bases/B) Cardiovascular: regular rate and rhythm Gastrointestinal: soft, non-tender Musculoskeletal: muscle weakness (genralized) Extremities: edema (covered by dressing) Neurological: other (No focal deficits) Labs Result Diagram: 04/23/19 0400 04/23/19 0400 Results 24hrs Laboratory Tests Test 04/22/19 17:22 04/22/19 20:44 04/23/19 04:00 04/23/19 07:54 Bedside Glucose 79 96 90 White Blood Count 11.8 H Red Blood Count 3.90 L Hemoglobin 11.7 L Hematocrit 36.6 L Mean Corpuscular 93.8 Volume Mean Corpuscular 30.0 Hemoglobin Mean Corpuscular 32.0 Hemoglobin Concent Red Cell 18.0 H Distribution Width Platelet Count 177 Mean Platelet Volume 10.3 Immature 0.800 H Granulocytes % Neutrophils % 81.2 H Lymphocytes % 5.2 L Monocytes % 8.7 Eosinophils % 3.2 Basophils % 0.9 Nucleated Red Blood 0.0 Cells % Immature 0.090 H Granulocytes # Neutrophils # 9.6 H Lymphocytes # 0.6 L Monocytes # 1.0 H Eosinophils # 0.4 Basophils # 0.1 Nucleated Red Blood 0.0 Cells # Sodium Level 135 Potassium Level 4.9 Chloride Level 99 Carbon Dioxide Level 22 Anion Gap 14 H Blood Urea Nitrogen 26 H Creatinine 4.85 H Est Glomerular 9 L Filtrat Rate mL/min Glucose Level 111 Calcium Level 8.5 Test 04/23/19 11:56 Bedside Glucose 109 Medications Medications Current Medications Acetaminophen (Tylenol Tab) 650 mg Q4H PRN PO FOR FEVER; Start 04/17/19 at 05:00 Albuterol (Proventil 0.083% (Neb)) 2.5 mg Q4H RESP THERAPY PRN NEB WHEEZING AND SOB; Start 04/17/19 at 05:00 Atorvastatin Calcium (Lipitor) 20 mg QHS PO Last administered on 04/22/19at 20:41; Admin Dose 20 MG; Start 04/17/19 at 21:00 Benzonatate (Tessalon) 100 mg Q6 PRN PO COUGH; Start 04/17/19 at 05:00 Bisacodyl (Dulcolax) 5 mg BID PO Last administered on 04/23/19at 09:43; Admin Dose 5 MG; Start 04/17/19 at 09:00 Folic Acid (Folic Acid) 1 mg DAILY PO Last administered on 04/23/19at 09:43; Admin Dose 1 MG; Start 04/17/19 at 09:00 Gabapentin (Neurontin) 300 mg TID PO Last administered on 04/23/19 09:43; Admin Dose 300 MG; Start 04/17/19 at 09:00 Multivit/Ca Carb/ B Cmplx/FA/Prenat (Suzie-Paula) 1 tab DAILY PO Last administered on 04/23/19at 09:43; Admin Dose 1 TAB; Start 04/17/19 at 09:00 Ondansetron HCl (Zofran Tab) 4 mg Q6H PRN PO NAUSEA AND/OR VOMITING; Start 04/17/19 at 05:00 Polyethylene Glycol (Miralax) 17 gm DAILY PO Last administered on 04/23/19at 09:42; Admin Dose 17 GM; Start 04/17/19 at 09:00 Morphine Sulfate (morphine) 2 mg Q4H PRN IV SEVERE PAIN LEVEL 7-10 Last administered on 04/23/19at 02:41; Admin Dose 2 MG; Start 04/17/19 at 05:00 Diagnostic Test (Pha) (Accu-Chek) 1 ea 02 XX ; Start 04/18/19 at 02:00 Insulin Aspart (Novolog Insulin Pen) NOVOLOG *MILD* ALGORITHM WITH MEALS BEDTIME SC ; Start 04/17/19 at 08:00 Miscellaneous Information (Pending [facility] Order For Wound Care) This patient davis... PRN PRN XX WOUND CARE; Start 04/17/19 at 05:00 Miscellaneous Information 1 ea NOTE XX ; Start 04/17/19 at 05:30 Glucose (Glutose) 15 gm Q15M PRN PO DECREASED GLUCOSE; Start 04/17/19 at 05:30 Glucose (Glutose) 22.5 gm Q15M PRN PO DECREASED GLUCOSE; Start 04/17/19 at 05:30 Dextrose (D50w Syringe) 25 ml Q15M PRN IV DECREASED GLUCOSE; Start 04/17/19 at 05:30 Dextrose (D50w Syringe) 50 ml Q15M PRN IV DECREASED GLUCOSE; Start 04/17/19 at 05:30 Glucagon (Glucagen) 1 mg Q15M PRN IM DECREASED GLUCOSE; Start 04/17/19 at 05:30 Glucose (Glutose) 15 gm Q15M PRN BUCCAL DECREASED GLUCOSE; Start 04/17/19 at 05:30 Guaifenesin/ Codeine Phosphate (Robitussin Ac Liquid Cup) 5 ml TID PO Last administered on 04/23/19 09:43; Admin Dose 5 ML; Start 04/17/19 at 09:00 Bisacodyl (Dulcolax Supp) 10 mg DAILY PRN [place] CONSTIPATION Last administered on 04/22/19 22:22; Admin Dose 10 MG; Start 04/17/19 at 10:00 Lubiprostone (Amitiza) 24 mcg BID PO Last administered on 04/23/19 09:43; Admin Dose 24 MCG; Start 04/17/19 at 12:00 Heparin Sodium (Porcine) (Heparin (1000 Units/ml)) 4,000 unit AFTER DIALYSIS CATHETER Last administered on 04/21/19 06:12; Admin Dose 3,700 UNIT; Start 04/17/19 at 12:00 Tramadol HCl (Ultram) 50 mg Q6H PRN PO MODERATE PAIN LEVEL 4-6 Last administered on 04/19/19 09:37; Admin Dose 50 MG; Start 04/18/19 at 11:00 Hydromorphone HCl (Dilaudid) 4 mg Q6H PRN PO PAIN 7-10/10; Start 04/18/19 at 11:30 Povidone Iodine (Povidone-Iodine) 1 applic DAILY TOP Last administered on 04/23/19 09:42; Admin Dose 1 APPLIC; Start 04/18/19 at 13:00 Pantoprazole (Protonix Tab) 40 mg BID@0600,1800 PO Last administered on 04/23/19 06:16; Admin Dose 40 MG; Start 04/18/19 at 18:00 Albumin Human 100 ml @ 100 mls/hr WITH DIALYSIS PRN IV SBP <90 DURING DIALYSIS Last administered on 04/21/19 02:58; Admin Dose 100 MLS/HR; Start 04/18/19 at 15:00 Sodium Hypochlorite (Dakins Diluted ()) 1 applic TID TP Last administered on 04/23/19 09:43; Admin Dose 1 APPLIC; Start 04/18/19 at 21:00 Zolpidem Tartrate (Ambien) 5 mg HS PRN PO INSOMNIA Last administered on 04/22/19 22:26; Admin Dose 5 MG; Start 04/19/19 at 03:00 Metoclopramide HCl (Reglan) 5 mg Q6 IV Last administered on 04/23/19 11:57; A dmin Dose 5 MG; Start 04/19/19 at 18:00 Lorazepam (Ativan) 0.5 mg Q6H PRN IV AGITATION/ANXIETY Last administered on 04/20/19 23:30; Admin Dose 0.5 MG; Start 04/20/19 at 17:30 Phenylephrine HCl 40 mg/Dextrose 250 ml @ 37.5 mls/hr TITRATE IV Last administered on 04/22/19 11:09; Admin Dose 37.5 MLS/HR; Start 04/20/19 at 19:00 Gentamicin Sulfate (Gentamicin Iv Per Pharmacy) GENTAMICIN PER PHARMACY NOTE XX ; Start 04/21/19 at 13:30 Gentamicin Sulfate 50 ml @ 100 mls/hr AFTER DIALYSIS IVPB ; Start 04/22/19 at 08:00 Albuterol/ Ipratropium (Duoneb) 3 ml Q6H RESP THERAPY INH Last administered on 04/22/19at 20:26; Admin Dose 3 ML; Start 04/22/19 at 20:00 Linezolid 300 ml @ 300 mls/hr Q12 IVPB Last administered on 04/23/19 09:43; Admin Dose 300 MLS/HR; Start 04/22/19 at 21:00 Metronidazole 100 ml @ 100 mls/hr Q8 IVPB Last administered on 04/23/19at 11:58; Admin Dose 100 MLS/HR; Start 04/23/19 at 12:00 Albumin Human 100 ml @ 100 mls/hr DAILY IV ; Start 04/23/19 at 12:30; Status UNV Magnesium Citrate (Citroma) 300 ml NOW ONCE PO ; Start 04/23/19 at 13:30; Stop 04/23/19 at 13:31 Zinc Sulfate (Zinc Sulfate) 220 mg DAILY PO ; Start 04/23/19 at 12:30 Multivit/Ca Carb/ B Cmplx/FA/Prenat (Suzie-Paula) 1 tab DAILY PO ; Start 5/26/19 at 12:30 Ascorbic Acid (Vitamin C) 500 mg DAILY PO ; Start 04/23/19 at 12:30 LOUIS COLLIER April 23, 2019 12:39
[2019-04-23] MEDS: ZINC SULFATE 220 MG CAP PO SCH (13:13)
[2019-04-23] MEDS: ASCORBIC ACID 500 MG TAB PO SCH (13:13)
[2019-04-23] MEDS: ALBUMIN HUMAN 25% 100 ML IV SCH (13:14)
[2019-04-23] MEDS ORDERED: MAGNESIUM CITRATE 300 ML BTL PO ONE (13:30)
[2019-04-23] MEDS: BISACODYL 10 MG SUPP PR PRN (16:16)
[2019-04-23] MEDS: ATORVASTATIN 20 MG TAB PO SCH (20:16)
[2019-04-23] MEDS: LORAZEPAM 2 MG INJ IV PRN (23:05)
[2019-04-24] VITALS (61 sets, daily range): BP systolic 78–115; BP diastolic 13–85; PULSE 79–104; RESP 11–38
[2019-04-24] MEDS: ALBUTEROL/IPRATROPIUM (NEB) 3 ML AMP INH SCH ×4 (01:06→19:46)
[2019-04-24] MEDS: ACCU-CHEK XX SCH (01:16)
[2019-04-24] MEDS: PANTOPRAZOLE (EC) 40 MG TAB PO SCH ×2 (06:00→19:15)
[2019-04-24] MEDS: metroNIDAZOLE 500 MG/NS (PMX) 100 ML IVPB SCH ×3 (06:05→22:26)
[2019-04-24] MEDS: METOCLOPRAMIDE 10 MG INJ IV SCH ×3 (06:05→19:15)
[2019-04-24] MEDS: INSULIN ASPART [NOVOLOG] 3 ML PEN SC SCH ×4 (07:35→20:47)
[2019-04-24] MEDS: PHENYLephrine 40 MG in DEXTROSE 5% 246 ML IV SCH ×3 (08:01→22:28)
--- NOTE | 2019-04-24 09:04 | CONS ---
Assessment/Plan Assessment/Plan Hospital Course (Demo Recall) IMPRESSION: 1. Abdominal pain, rule out peptic ulcer disease, rule out gastritis. Rule out also bile duct stone, given the history of elevated alkaline phosphatase. Patient has severe gastritis 2. End-stage renal disease on dialysis. 3. Peripheral vascular disease. 4. Chronic atrial fibrillation. 5. Status post cholecystectomy. 6. Diabetes. 7. Hypertension. 8. Depression. 9. Lower extremity wound. 10. Atrial fibrillation rate is controlled with digoxin and amiodarone Plan Continue antibiotic Continue all supportive care and PPI. BLEXT debridement was deferred due to hypotension requiring initiation of pressors. Reschedule per surgery Dr. Jarrett to resume GI care of this patient tomorrow Consultation Date/Type/Reason Admit Date/Time April 17, 2019 at 00:03 Initial Consult Date 04/20/19 Type of Consult GI Requesting Provider: ALONZO KNOWLES MD Date/Time of Note DATE: 04/24/19 TIME: 09:03 24 HR Interval Summary Subjective hx not possible: pt non-verbal, pt critical status Exam/Review of Systems Exam Vitals Vital Signs Date Temp Pulse Resp B/P (MAP) Pulse Ox O2 O2 Flow FiO2 Time Delivery Rate 04/24/19 96 08:45 04/24/19 87 16 21 08:45 04/23/19 93/42 (59) 23:30 04/23/19 98.4 19:00 04/23/19 Room Air 16:00 04/22/19 2.0 18:07 Intake and Output 04/23/19 04/23/19 04/24/19 1515:00 23:00 07:00 IntakeIntake Total 276.0 ml 571.0 ml 223.75 ml OutputOutput Total 0 ml BalanceBalance 276.0 ml 571.0 ml 223.75 ml Constitutional: alert, oriented, well developed Psych: no complaints, nl mood/affect Head: normocephalic, atraumatic Eyes: nl conjunctiva, EOMI, nl lids ENMT: nl external ears & nose, nl lips & teeth, nl nasal mucosa & septum Neck: supple, non-tender Respiratory: clear to auscultation, normal air movement Cardiovascular: regular rate and rhythm, nl pulses Gastrointestinal: soft, non-tender, bowel sounds Results Result Diagram: 04/24/19 0400 04/24/19 0400 Results 24hrs Laboratory Tests Test 04/23/19 11:56 04/23/19 17:38 04/23/19 20:17 04/24/19 04:00 Bedside Glucose 109 113 99 White Blood Count 13.4 H Red Blood Count 4.29 Hemoglobin 13.0 Hematocrit 39.7 Mean Corpuscular 92.5 Volume Mean Corpuscular 30.3 Hemoglobin Mean Corpuscular 32.7 Hemoglobin Concent Red Cell 18.3 H Distribution Width Platelet Count 221 # Mean Platelet Volume 10.4 Immature 0.900 H Granulocytes % Neutrophils % 82.3 H Lymphocytes % 5.1 L Monocytes % 8.1 Eosinophils % 2.4 Basophils % 1.2 Nucleated Red Blood 0.0 Cells % Immature 0.120 H Granulocytes # Neutrophils # 11.0 H Lymphocytes # 0.7 L Monocytes # 1.1 H Eosinophils # 0.3 Basophils # 0.2 H Nucleated Red Blood 0.0 Cells # Sodium Level 133 L Potassium Level 4.7 Chloride Level 96 L Carbon Dioxide Level 23 Anion Gap 14 H Blood Urea Nitrogen 31 H Creatinine 5.48 H Est Glomerular 8 L Filtrat Rate mL/min Glucose Level 113 Calcium Level 8.8 Prealbumin 3.1 L Test 04/24/19 08:19 Bedside Glucose 99 Medications Medication Current Medications Acetaminophen (Tylenol Tab) 650 mg Q4H PRN PO FOR FEVER; Start 04/17/19 at 05:00 Albuterol (Proventil 0.083% (Neb)) 2.5 mg Q4H RESP THERAPY PRN NEB WHEEZING AND SOB; Start 04/17/19 at 05:00 Atorvastatin Calcium (Lipitor) 20 mg QHS PO Last administered on 04/23/19at 20:16; Admin Dose 20 MG; Start 04/17/19 at 21:00 Benzonatate (Tessalon) 100 mg Q6 PRN PO COUGH; Start 04/17/19 at 05:00 Bisacodyl (Dulcolax) 5 mg BID PO Last administered on 04/23/19at 20:16; Admin Dose 5 MG; Start 04/17/19 at 09:00 Folic Acid (Folic Acid) 1 mg DAILY PO Last administered on 04/23/19at 09:43; Admin Dose 1 MG; Start 04/17/19 at 09:00 Gabapentin (Neurontin) 300 mg TID PO Last administered on 04/23/19 20:16; Admin Dose 300 MG; Start 04/17/19 at 09:00 Ondansetron HCl (Zofran Tab) 4 mg Q6H PRN PO NAUSEA AND/OR VOMITING; Start 04/17/19 at 05:00 Polyethylene Glycol (Miralax) 17 gm DAILY PO Last administered on 04/23/19 09:42; Admin Dose 17 GM; Start 04/17/19 at 09:00 Morphine Sulfate (morphine) 2 mg Q4H PRN IV SEVERE PAIN LEVEL 7-10 Last administered on 04/23/19at 23:05; Admin Dose 2 MG; Start 04/17/19 at 05:00 Diagnostic Test (Pha) (Accu-Chek) 1 ea 02 XX ; Start 04/18/19 at 02:00 Insulin Aspart (Novolog Insulin Pen) NOVOLOG *MILD* ALGORITHM WITH MEALS BEDTIME SC ; Start 04/17/19 at 08:00 Miscellaneous Information (Pending [facility] Order For Wound Care) This patient davis... PRN PRN XX WOUND CARE; Start 04/17/19 at 05:00 Miscellaneous Information 1 ea NOTE XX ; Start 04/17/19 at 05:30 Glucose (Glutose) 15 gm Q15M PRN PO DECREASED GLUCOSE; Start 04/17/19 at 05:30 Glucose (Glutose) 22.5 gm Q15M PRN PO DECREASED GLUCOSE; Start 04/17/19 at 05:30 Dextrose (D50w Syringe) 25 ml Q15M PRN IV DECREASED GLUCOSE; Start 04/17/19 at 05:30 Dextrose (D50w Syringe) 50 ml Q15M PRN IV DECREASED GLUCOSE; Start 04/17/19 at 05:30 Glucagon (Glucagen) 1 mg Q15M PRN IM DECREASED GLUCOSE; Start 04/17/19 at 05:30 Glucose (Glutose) 15 gm Q15M PRN BUCCAL DECREASED GLUCOSE; Start 04/17/19 at 05:30 Guaifenesin/ Codeine Phosphate (Robitussin Ac Liquid Cup) 5 ml TID PO Last administered on 04/23/19at 09:43; Admin Dose 5 ML; Start 04/17/19 at 09:00 Bisacodyl (Dulcolax Supp) 10 mg DAILY PRN [place] CONSTIPATION Last administered on 04/23/19at 16:16; Admin Dose 10 MG; Start 04/17/19 at 10:00 Lubiprostone (Amitiza) 24 mcg BID PO Last administered on 04/23/19 20:16; Admin Dose 24 MCG; Start 04/17/19 at 12:00 Heparin Sodium (Porcine) (Heparin (1000 Units/ml)) 4,000 unit AFTER DIALYSIS CATHETER Last administered on 04/21/19 06:12; Admin Dose 3,700 UNIT; Start 04/17/19 at 12:00 Tramadol HCl (Ultram) 50 mg Q6H PRN PO MODERATE PAIN LEVEL 4-6 Last administered on 04/19/19 09:37; Admin Dose 50 MG; Start 04/18/19 at 11:00 Hydromorphone HCl (Dilaudid) 4 mg Q6H PRN PO PAIN 7-10/10; Start 04/18/19 at 11:30 Povidone Iodine (Povidone-Iodine) 1 applic DAILY TOP Last administered on 04/23/19 09:42; Admin Dose 1 APPLIC; Start 04/18/19 at 13:00 Pantoprazole (Protonix Tab) 40 mg BID@0600,1800 PO Last administered on 04/23/19 17:52; Admin Dose 40 MG; Start 04/18/19 at 18:00 Albumin Human 100 ml @ 100 mls/hr WITH DIALYSIS PRN IV SBP <90 DURING DIALYSIS Last administered on 04/21/19 02:58; Admin Dose 100 MLS/HR; Start 04/18/19 at 15:00 Sodium Hypochlorite (Dakins Diluted ()) 1 applic TID TP Last administered on 04/23/19 20:24; Admin Dose 1 APPLIC; Start 04/18/19 at 21:00 Zolpidem Tartrate (Ambien) 5 mg HS PRN PO INSOMNIA Last administered on 04/22/19 22:26; Admin Dose 5 MG; Start 04/19/19 at 03:00 Metoclopramide HCl (Reglan) 5 mg Q6 IV Last administered on 04/24/19 06:05; Admin Dose 5 MG; Start 04/19/19 at 18:00 Lorazepam (Ativan) 0.5 mg Q6H PRN IV AGITATION/ANXIETY Last administered on 04/23/19 23:05; Admin Dose 0.5 MG; Start 04/20/19 at 17:30 Phenylephrine HCl 40 mg/Dextrose 250 ml @ 37.5 mls/hr TITRATE IV Last administered on 04/24/19 08:01; Admin Dose 30 MLS/HR; Start 04/20/19 at 19:00 Gentamicin Sulfate (Gentamicin Iv Per Pharmacy) GENTAMICIN PER PHARMACY NOTE XX ; Start 04/21/19 at 13:30 Gentamicin Sulfate 50 ml @ 100 mls/hr AFTER DIALYSIS IVPB ; Start 04/22/19 at 08:00 Albuterol/ Ipratropium (Duoneb) 3 ml Q6H RESP THERAPY INH Last administered on 04/24/19 08:45; Admin Dose 3 ML; Start 04/22/19 at 20:00 Linezolid 300 ml @ 300 mls/hr Q12 IVPB Last administered on 04/23/19 20:16; Admin Dose 300 MLS/HR; Start 04/22/19 at 21:00 Metronidazole 100 ml @ 100 mls/hr Q8 IVPB Last administered on 04/24/19 06:05; Admin Dose 100 MLS/HR; Start 04/23/19 at 12:00 Albumin Human 100 ml @ 100 mls/hr DAILY IV Last administered on 04/23/19 13:14; Admin Dose 100 MLS/HR; Start 04/23/19 at 12:30; Stop 04/25/19 at 09:59 Zinc Sulfate (Zinc Sulfate) 220 mg DAILY PO Last administered on 04/23/19 13:13; Admin Dose 220 MG; Start 04/23/19 at 12:30 Multivit/Ca Carb/ B Cmplx/FA/Prenat (Suzie-Paula) 1 tab DAILY PO Last administered on 04/23/19 13:13; Admin Dose 1 TAB; Start 04/23/19 at 12:30 Ascorbic Acid (Vitamin C) 500 mg DAILY PO Last administered on 04/23/19 13:13; Admin Dose 500 MG; Start 04/23/19 at 12:30 Aspirin (Aspirin) 81 mg DAILY PO ; Start 04/24/19 at 09:00 SOL DE LEÓN MD April 24, 2019 09:04
[2019-04-24] MEDS: LINEZOLID 600 MG/300 ML (PMX) 300 ML IVPB SCH ×2 (09:52→20:42)
[2019-04-24] MEDS: LUBIPROSTONE 24 MCG CAP PO SCH ×2 (09:52→20:47)
[2019-04-24] MEDS: FOLIC ACID 1 MG TAB PO SCH (09:53)
[2019-04-24] MEDS: GABAPENTIN 300 MG CAP PO SCH ×3 (09:53→20:42)
[2019-04-24] MEDS: ASPIRIN 81 MG TAB PO SCH (09:53)
[2019-04-24] MEDS: ZINC SULFATE 220 MG CAP PO SCH (09:53)
[2019-04-24] MEDS: MULTIVIT/CA CARB/B CMPLX/FA TAB PO SCH (09:53)
[2019-04-24] MEDS: POLYETHYLENE GLYCOL 17 GM PACKET PO SCH (09:54)
[2019-04-24] MEDS: ASCORBIC ACID 500 MG TAB PO SCH (09:54)
[2019-04-24] MEDS: BISACODYL (EC) 5 MG TAB PO SCH ×2 (09:54→20:42)
[2019-04-24] MEDS: ALBUMIN HUMAN 25% 100 ML IV SCH (09:56)
[2019-04-24] MEDS: BALSAM PERU/CASTOR OIL 60 GM TUBE TOP SCH ×2 (09:57→20:43)
[2019-04-24] MEDS: DAKINS 0.0125%(1/40) 473 ML SOLUTION TP SCH ×3 (09:57→20:43)
[2019-04-24] MEDS: GUAIFENESIN/CODEINE 5ML CUP PO SCH ×3 (10:01→20:46)
--- NOTE | 2019-04-24 11:26 | PN ---
Date/Time of Note Date/Time of Note DATE: 04/24/19 TIME: 11:24 Assessment/Plan VTE Prophylaxis Risk score (from Ns)>0 risk: 10 SCD applied (from [facility] [place]): No SCD contraindicated: bilateral LE trauma Pharmacological prophylaxis: NA/contraindicated Pharm contraindication: anticoag not tolerated Lines/Catheters IV Catheter Type (from [facility]): perma cath Central line still needed: Yes Urinary Cath still in place: No Assessment/Plan Hospital Course 1. Abdominal pain with some nausea. CT of the abdomen and pelvis showed severe left hydronephrosis, status post cholecystectomy. LFTs within normal limit except mildly elevated alkaline phosphatase. Lipase is 22. Likely secondary to constipation vs gastritis vs gastroparesis abdominal pain is still persistent. Versus choledocholithiasis 2. Severe left hydronephrosis secondary to UPJ junction, no urinary stone. probably chronic , no intervention per urology 3. Bilateral lower extremity ulcers with gangrene, followed by Dr. Schultz/ [place] 4. End-stage renal disease, on hemodialysis. 5. Hypotension, on dialysis. could be secondary to infected ulcers, hold bp m eds 6. Diabetes mellitus type II. 7. Hypertension. 8. Peripheral vascular disease. 9. History of gastritis. 10. History of gastroparesis. 11. History of atrial fibrillation. 12 anasarca 13. Afib, controlled now, 14. SIRS Assessment/Plan -contact Isolation for VRE wounds -surgery on hold due to hypotension -strict BS control -c.e phos. binding agents -DVT prophylaxis is unable to impose due to not tolerating a/coag. -GI proph. Protonix -prealbumin level low, pt has malnourishment -c/w HD -dr Flowers is for cardio -dr Coronado, podiatry consult is appreciated, postponed surgery -ID per dr Webb - albumin for 2 more days -WBC went up -no HD possible Result Diagram: 04/24/19 0400 04/24/19 0400 Results 24hrs Laboratory Tests Test 04/23/19 11:56 04/23/19 17:38 04/23/19 20:17 04/24/19 04:00 Bedside Glucose 109 113 99 White Blood Count 13.4 H Red Blood Count 4.29 Hemoglobin 13.0 Hematocrit 39.7 Mean Corpuscular 92.5 Volume Mean Corpuscular 30.3 Hemoglobin Mean Corpuscular 32.7 Hemoglobin Concent Red Cell 18.3 H Distribution Width Platelet Count 221 # Mean Platelet Volume 10.4 Immature 0.900 H Granulocytes % Neutrophils % 82.3 H Lymphocytes % 5.1 L Monocytes % 8.1 Eosinophils % 2.4 Basophils % 1.2 Nucleated Red Blood 0.0 Cells % Immature 0.120 H Granulocytes # Neutrophils # 11.0 H Lymphocytes # 0.7 L Monocytes # 1.1 H Eosinophils # 0.3 Basophils # 0.2 H Nucleated Red Blood 0.0 Cells # Sodium Level 133 L Potassium Level 4.7 Chloride Level 96 L Carbon Dioxide Level 23 Anion Gap 14 H Blood Urea Nitrogen 31 H Creatinine 5.48 H Est Glomerular 8 L Filtrat Rate mL/min Glucose Level 113 Calcium Level 8.8 Prealbumin 3.1 L Test 04/24/19 08:19 Bedside Glucose 99 Subjective 24 Hr Interval Summary Free Text/Dictation had Stool yesterday Musculoskeletal: back pain Exam/Review of Systems Exam Vitals Vital Signs Date Temp Pulse Resp B/P (MAP) Pulse Ox O2 O2 Flow FiO2 Time Delivery Rate 04/24/19 96 08:45 04/24/19 87 16 21 08:45 04/23/19 93/42 (59) 23:30 04/23/19 98.4 19:00 04/23/19 Room Air 16:00 04/22/19 2.0 18:07 Intake and Output 04/23/19 04/23/19 04/24/19 1515:00 23:00 07:00 IntakeIntake Total 276.0 ml 571.0 ml 223.75 ml OutputOutput Total 0 ml BalanceBalance 276.0 ml 571.0 ml 223.75 ml Exam right chest permcath Constitutional: alert, oriented Psych: no complaints Head: normocephalic Eyes: nl conjunctiva Neck: supple Respiratory: diminished breath sounds Cardiovascular: regular rate and rhythm Extremities: other (surgical dressing on feet) Results Results 24hrs Laboratory Tests Test 04/23/19 11:56 04/23/19 17:38 04/23/19 20:17 04/24/19 04:00 Bedside Glucose 109 113 99 White Blood Count 13.4 H Red Blood Count 4.29 Hemoglobin 13.0 Hematocrit 39.7 Mean Corpuscular 92.5 Volume Mean Corpuscular 30.3 Hemoglobin Mean Corpuscular 32.7 Hemoglobin Concent Red Cell 18.3 H Distribution Width Platelet Count 221 # Mean Platelet Volume 10.4 Immature 0.900 H Granulocytes % Neutrophils % 82.3 H Lymphocytes % 5.1 L Monocytes % 8.1 Eosinophils % 2.4 Basophils % 1.2 Nucleated Red Blood 0.0 Cells % Immature 0.120 H Granulocytes # Neutrophils # 11.0 H Lymphocytes # 0.7 L Monocytes # 1.1 H Eosinophils # 0.3 Basophils # 0.2 H Nucleated Red Blood 0.0 Cells # Sodium Level 133 L Potassium Level 4.7 Chloride Level 96 L Carbon Dioxide Level 23 Anion Gap 14 H Blood Urea Nitrogen 31 H Creatinine 5.48 H Est Glomerular 8 L Filtrat Rate mL/min Glucose Level 113 Calcium Level 8.8 Prealbumin 3.1 L Test 04/24/19 08:19 Bedside Glucose 99 Medications Medication Current Medications Acetaminophen (Tylenol Tab) 650 mg Q4H PRN PO FOR FEVER; Start 04/17/19 at 05:00 Albuterol (Proventil 0.083% (Neb)) 2.5 mg Q4H RESP THERAPY PRN NEB WHEEZING AND SOB; Start 04/17/19 at 05:00 Atorvastatin Calcium (Lipitor) 20 mg QHS PO Last administered on 04/23/19at 20:16; Admin Dose 20 MG; Start 04/17/19 at 21:00 Benzonatate (Tessalon) 100 mg Q6 PRN PO COUGH; Start 04/17/19 at 05:00 Bisacodyl (Dulcolax) 5 mg BID PO Last administered on 04/24/19at 09:54; Admin Dose 5 MG; Start 04/17/19 at 09:00 Folic Acid (Folic Acid) 1 mg DAILY PO Last administered on 04/24/19 09:53; Admin Dose 1 MG; Start 04/17/19 at 09:00 Gabapentin (Neurontin) 300 mg TID PO Last administered on 04/24/19 09:53; Admin Dose 300 MG; Start 04/17/19 at 09:00 Ondansetron HCl (Zofran Tab) 4 mg Q6H PRN PO NAUSEA AND/OR VOMITING; Start 04/17/19 at 05:00 Polyethylene Glycol (Miralax) 17 gm DAILY PO Last administered on 04/24/19at 09:54; Admin Dose 17 GM; Start 04/17/19 at 09:00 Morphine Sulfate (morphine) 2 mg Q4H PRN IV SEVERE PAIN LEVEL 7-10 Last administered on 04/23/19at 23:05; Admin Dose 2 MG; Start 04/17/19 at 05:00 Diagnostic Test (Pha) (Accu-Chek) 1 ea 02 XX ; Start 04/18/19 at 02:00 Insulin Aspart (Novolog Insulin Pen) NOVOLOG *MILD* ALGORITHM WITH MEALS BEDTIME SC ; Start 04/17/19 at 08:00 Miscellaneous Information (Pending Santyl Order For Wound Care) This patient davis... PRN PRN XX WOUND CARE; Start 04/17/19 at 05:00 Miscellaneous Information 1 ea NOTE XX ; Start 04/17/19 at 05:30 Glucose (Glutose) 15 gm Q15M PRN PO DECREASED GLUCOSE; Start 04/17/19 at 05:30 Glucose (Glutose) 22.5 gm Q15M PRN PO DECREASED GLUCOSE; Start 04/17/19 at 05:30 Dextrose (D50w Syringe) 25 ml Q15M PRN IV DECREASED GLUCOSE; Start 04/17/19 at 05:30 Dextrose (D50w Syringe) 50 ml Q15M PRN IV DECREASED GLUCOSE; Start 04/17/19 at 05:30 Glucagon (Glucagen) 1 mg Q15M PRN IM DECREASED GLUCOSE; Start 04/17/19 at 05:30 Glucose (Glutose) 15 gm Q15M PRN BUCCAL DECREASED GLUCOSE; Start 04/17/19 at 05:30 Guaifenesin/ Codeine Phosphate (Robitussin Ac Liquid Cup) 5 ml TID PO Last administered on 04/24/19at 10:01; Admin Dose 5 ML; Start 04/17/19 at 09:00 Bisacodyl (Dulcolax Supp) 10 mg DAILY PRN [place] CONSTIPATION Last administered on 04/23/19at 16:16; Admin Dose 10 MG; Start 04/17/19 at 10:00 Lubiprostone (Amitiza) 24 mcg BID PO Last administered on 04/24/19at 09:52; Admin Dose 24 MCG; Start 04/17/19 at 12:00 Heparin Sodium (Porcine) (Heparin (1000 Units/ml)) 4,000 unit AFTER DIALYSIS CATHETER Last administered on 04/21/19 06:12; Admin Dose 3,700 UNIT; Start 04/17/19 at 12:00 Tramadol HCl (Ultram) 50 mg Q6H PRN PO MODERATE PAIN LEVEL 4-6 Last administered on 04/19/19 09:37; Admin Dose 50 MG; Start 04/18/19 at 11:00 Hydromorphone HCl (Dilaudid) 4 mg Q6H PRN PO PAIN 7-10/10; Start 04/18/19 at 11:30 Povidone Iodine (Povidone-Iodine) 1 applic DAILY TOP Last administered on 04/23/19 09:42; Admin Dose 1 APPLIC; Start 04/18/19 at 13:00 Pantoprazole (Protonix Tab) 40 mg BID@0600,1800 PO Last administered on 04/23/19 17:52; Admin Dose 40 MG; Start 04/18/19 at 18:00 Albumin Human 100 ml @ 100 mls/hr WITH DIALYSIS PRN IV SBP <90 DURING DIALYSIS Last administered on 04/21/19 02:58; Admin Dose 100 MLS/HR; Start 04/18/19 at 15:00 Sodium Hypochlorite (Dakins Diluted (40)) 1 applic TID TP Last administered on 04/24/19 09:57; Admin Dose 1 APPLIC; Start 04/18/19 at 21:00 Zolpidem Tartrate (Ambien) 5 mg HS PRN PO INSOMNIA Last administered on 04/22/19 22:26; Admin Dose 5 MG; Start 04/19/19 at 03:00 Metoclopramide HCl (Reglan) 5 mg Q6 IV Last administered on 04/24/19 06:05; Admin Dose 5 MG; Start 04/19/19 at 18:00 Lorazepam (Ativan) 0.5 mg Q6H PRN IV AGITATION/ANXIETY Last administered on 03/30 23:05; Admin Dose 0.5 MG; Start 04/20/19 at 17:30 Phenylephrine HCl 40 mg/Dextrose 250 ml @ 37.5 mls/hr TITRATE IV Last administered on 04/24/19 08:01; Admin Dose 30 MLS/HR; Start 04/20/19 at 19:00 Gentamicin Sulfate (Gentamicin Iv Per Pharmacy) GENTAMICIN PER PHARMACY NOTE XX ; Start 04/21/19 at 13:30 Gentamicin Sulfate 50 ml @ 100 mls/hr AFTER DIALYSIS IVPB ; Start 04/22/19 at 08:00 Albuterol/ Ipratropium (Duoneb) 3 ml Q6H RESP THERAPY INH Last administered on 04/24/19 08:45; Admin Dose 3 ML; Start 04/22/19 at 20:00 Linezolid 300 ml @ 300 mls/hr Q12 IVPB Last administered on 04/24/19 09:52; Admin Dose 300 MLS/HR; Start 04/22/19 at 21:00 Metronidazole 100 ml @ 100 mls/hr Q8 IVPB Last administered on 04/24/19 06:05; Admin Dose 100 MLS/HR; Start 04/23/19 at 12:00 Albumin Human 100 ml @ 100 mls/hr DAILY IV Last administered on 04/24/19 09:56; Admin Dose 100 MLS/HR; Start 04/23/19 at 12:30; Stop 04/25/19 at 09:59 Zinc Sulfate (Zinc Sulfate) 220 mg DAILY PO Last administered on 04/24/19 09:53; Admin Dose 220 MG; Start 04/23/19 at 12:30 Multivit/Ca Carb/ B Cmplx/FA/Prenat (Suzie-Paula) 1 tab DAILY PO Last administered on 04/24/19 09:53; Admin Dose 1 TAB; Start 04/23/19 at 12:30 Ascorbic Acid (Vitamin C) 500 mg DAILY PO Last administered on 04/24/19 09:54; Admin Dose 500 MG; Start 04/23/19 at 12:30 Aspirin (Aspirin) 81 mg DAILY PO Last administered on 04/24/19 09:53; Admin Dose 81 MG; Start 04/24/19 at 09:00 KENNY TERRAZAS April 24, 2019 11:26
[2019-04-24] MEDS ORDERED: DIGOXIN 500 MCG INJ IV ONE (11:30)
--- NOTE | 2019-04-24 11:42 | CONS ---
Assessment/Plan Assessment/Plan Hospital Course (Demo Recall) ID PROGRESS NOTE CURRENT ABX: DAY #=>Zyvox + GENT +Flagyl s/p Vanco IV + Merrem 04/23/19 0400 04/23/19 0400 24H INTERVAL SUMMARY * BLEXT debridement was deferred due to hypotension requiring initiation of pressors. 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 ? * PO Zyvox ABX was held SATam due to NPO status prior to procedure - -she became hypotensive and debridement was deferred for IV Pressor support -- When I arrived in pm I started her on IV Zyvox -- she is disappointed that BLEXT debridement was deferred due to hypotension requiring initiation of pressors * No fevers, WBC IMPROVING, malodorous BLEXT wounds need debridement * Indwelling: Right chest PermCath. IMAGING * 04/22/19 RUEXT US: 1. No evidence of a deep vein thrombosis involving the right upper extremity. * 04/20/19 MRI of right ankle revealed suspicion for early osteomyelitis of the posterior calcaneus. 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 Please see full report in the chart MICRO/OTHER * (-)MRSA NARES * 04/18/19 BCX (-) * 04/17/19 RIGHT FOOT CX: WOUND CULTURE Final NO GROWTH AFTER 3 DAYS * 04/17/19 LEFT FOOT CX: WOUND CULTURE Final Organism 1 ESCHERICHIA COLI QUANTITY 3+ Organism 2 MORGANELLA MORGANII SSP MORG. QUANTITY 1+ Organism 3 VANCO RESISTANT ENTEROCOCCUS QUANTITY 1+ . MULTI DRUG RESISTANT ORGANISM Organism 4 METHICILLIN RESISTANT S.AUREUS QUANTITY ISOLATED FROM BROTH ONLY . MULTI DRUG RESISTANT ORGANISM E COLI MORMOSP VRE M.I.C. RX M.I.C. RX M.I.C. RX --------- --- --------- --- --------- --- AMPICILLIN >=32 R >=32 R CEFAZOLIN R CEFOTAXIME S S CIPROFLOXACIN >=4 R >=4 R CLINDAMYCIN DOXYCYCLINE ERYTHROMYCIN GENTAMICIN <=1 S <=1 S GENTAMICIN 120 S LEVOFLOXACIN >=8 R >=8 R LINEZOLID 1 S OXACILLIN PENICILLIN-G >=64 R QUINUPRISTIN/DALFOPRISTIN 0.5 S RIFAMPIN STREPTOMYCIN 300 R VANCOMYCIN >=32 R TOBRAMYCIN <=1 S <=1 S TRIMETHOPRIM/SULFAMETHOXAZOLE >=320 R >=320 R MRSA M.I.C. RX --------- --- AMPICILLIN CEFAZOLIN R CEFOTAXIME CIPROFLOXACIN >=8 R CLINDAMYCIN <=0.25 S DOXYCYCLINE S ERYTHROMYCIN <=0.25 S GENTAMICIN GENTAMICIN 120 LEVOFLOXACIN >=8 R LINEZOLID >>>>>>>>>>>>>>>>>>>>>>>>>>>>>>>>>>>>>>>>? OXACILLIN >=4 R PENICILLIN-G >=0.5 R QUINUPRISTIN/DALFOPRISTIN RIFAMPIN <=0.5 S STREPTOMYCIN 300 VANCOMYCIN <=0.5 S TOBRAMYCIN TRIMETHOPRIM/SULFAMETHOXAZOLE <=10 S PHYSICAL EXAMINATION: GENERAL: VSS, NAD, HEENT: AT, NC, NECK: WNL CHEST: Equal chest rise bilaterally without dyspnea on observation ABD: Soft, ND EXTREMITIES: Warm, dry SKIN: No rash, no diaphoresis ID ASSESSMENT 63 yo [place] with: 1. Sepsis w/shock 2. Bilateral lower extremities gangrene/OM 3. End-stage renal disease 4. Peripheral arterial disease, status post right posterior tibial artery angioplasty 03/01/19 5. Diabetes 6. Failure to thrive 7. Afib s/p RVR 8. QUERY Toxic metabolic encephalopathy ? Confusion w/combative behavior last night ? (-)MRSA Nares ABX ALLERGIES: NKDA INVASIVES: PIV CURRENT ABX: DAY # =>Zyvox + GENT + Flagyl s/p Vanco IV + Merrem ID RECOMMENDATIONS/PLAN: 1. Continue IV ABX -- Flagyl added as no empiric anaerobic coverage onboard 2. Debridement when stable . Consultation Date/Type/Reason Admit Date/Time April 17, 2019 at 00:03 Initial Consult Date 04/20/19 Requesting Provider: ALONZO KNOWLES MD Date/Time of Note DATE: 04/24/19 TIME: 11:41 Exam/Review of Systems Exam Vitals Vital Signs Date Temp Pulse Resp B/P (MAP) Pulse Ox O2 O2 Flow FiO2 Time Delivery Rate 04/24/19 96 08:45 04/24/19 87 16 21 08:45 04/23/19 93/42 (59) 23:30 04/23/19 98.4 19:00 04/23/19 Room Air 16:00 04/22/19 2.0 18:07 Intake and Output 04/23/19 04/23/19 04/24/19 1515:00 23:00 07:00 IntakeIntake Total 276.0 ml 571.0 ml 223.75 ml OutputOutput Total 0 ml BalanceBalance 276.0 ml 571.0 ml 223.75 ml Results Result Diagram: 04/24/19 0400 04/24/19 0400 Results 24hrs Laboratory Tests Test 04/23/19 11:56 04/23/19 17:38 04/23/19 20:17 04/24/19 04:00 Bedside Glucose 109 113 99 White Blood Count 13.4 H Red Blood Count 4.29 Hemoglobin 13.0 Hematocrit 39.7 Mean Corpuscular 92.5 Volume Mean Corpuscular 30.3 Hemoglobin Mean Corpuscular 32.7 Hemoglobin Concent Red Cell 18.3 H Distribution Width Platelet Count 221 # Mean Platelet Volume 10.4 Immature 0.900 H Granulocytes % Neutrophils % 82.3 H Lymphocytes % 5.1 L Monocytes % 8.1 Eosinophils % 2.4 Basophils % 1.2 Nucleated Red Blood 0.0 Cells % Immature 0.120 H Granulocytes # Neutrophils # 11.0 H Lymphocytes # 0.7 L Monocytes # 1.1 H Eosinophils # 0.3 Basophils # 0.2 H Nucleated Red Blood 0.0 Cells # Sodium Level 133 L Potassium Level 4.7 Chloride Level 96 L Carbon Dioxide Level 23 Anion Gap 14 H Blood Urea Nitrogen 31 H Creatinine 5.48 H Est Glomerular 8 L Filtrat Rate mL/min Glucose Level 113 Calcium Level 8.8 Prealbumin 3.1 L Test 04/24/19 08:19 Bedside Glucose 99 Medications Medication Current Medications Acetaminophen (Tylenol Tab) 650 mg Q4H PRN PO FOR FEVER; Start 04/17/19 at 05:00 Albuterol (Proventil 0.083% (Neb)) 2.5 mg Q4H RESP THERAPY PRN NEB WHEEZING AND SOB; Start 04/17/19 at 05:00 Atorvastatin Calcium (Lipitor) 20 mg QHS PO Last administered on 04/23/19at 20:16; Admin Dose 20 MG; Start 04/17/19 at 21:00 Benzonatate (Tessalon) 100 mg Q6 PRN PO COUGH; Start 04/17/19 at 05:00 Bisacodyl (Dulcolax) 5 mg BID PO Last administered on 04/24/19 09:54; Admin Dose 5 MG; Start 04/17/19 at 09:00 Folic Acid (Folic Acid) 1 mg DAILY PO Last administered on 04/24/19at 09:53; Admin Dose 1 MG; Start 04/17/19 at 09:00 Gabapentin (Neurontin) 300 mg TID PO Last administered on 04/24/19at 09:53; Admin Dose 300 MG; Start 04/17/19 at 09:00 Ondansetron HCl (Zofran Tab) 4 mg Q6H PRN PO NAUSEA AND/OR VOMITING; Start 04/17/19 at 05:00 Polyethylene Glycol (Miralax) 17 gm DAILY PO Last administered on 04/24/19 09:54; Admin Dose 17 GM; Start 04/17/19 at 09:00 Morphine Sulfate (morphine) 2 mg Q4H PRN IV SEVERE PAIN LEVEL 7-10 Last administered on 04/23/19at 23:05; Admin Dose 2 MG; Start 04/17/19 at 05:00 Diagnostic Test (Pha) (Accu-Chek) 1 ea 02 XX ; Start 04/18/19 at 02:00 Insulin Aspart (Novolog Insulin Pen) NOVOLOG *MILD* ALGORITHM WITH MEALS BEDTIME SC ; Start 04/17/19 at 08:00 Miscellaneous Information (Pending [facility] Order For Wound Care) This patient davis... PRN PRN XX WOUND CARE; Start 04/17/19 at 05:00 Miscellaneous Information 1 ea NOTE XX ; Start 04/17/19 at 05:30 Glucose (Glutose) 15 gm Q15M PRN PO DECREASED GLUCOSE; Start 04/17/19 at 05:30 Glucose (Glutose) 22.5 gm Q15M PRN PO DECREASED GLUCOSE; Start 04/17/19 at 05:30 Dextrose (D50w Syringe) 25 ml Q15M PRN IV DECREASED GLUCOSE; Start 04/17/19 at 05:30 Dextrose (D50w Syringe) 50 ml Q15M PRN IV DECREASED GLUCOSE; Start 04/17/19 at 05:30 Glucagon (Glucagen) 1 mg Q15M PRN IM DECREASED GLUCOSE; Start 04/17/19 at 05:30 Glucose (Glutose) 15 gm Q15M PRN BUCCAL DECREASED GLUCOSE; Start 04/17/19 at 05:30 Guaifenesin/ Codeine Phosphate (Robitussin Ac Liquid Cup) 5 ml TID PO Last administered on 04/24/19 10:01; Admin Dose 5 ML; Start 04/17/19 at 09:00 Bisacodyl (Dulcolax Supp) 10 mg DAILY PRN [place] CONSTIPATION Last administered on 04/23/19at 16:16; Admin Dose 10 MG; Start 04/17/19 at 10:00 Lubiprostone (Amitiza) 24 mcg BID PO Last administered on 04/24/19 09:52; Admin Dose 24 MCG; Start 04/17/19 at 12:00 Heparin Sodium (Porcine) (Heparin (1000 Units/ml)) 4,000 unit AFTER DIALYSIS CATHETER Last administered on 04/21/19 06:12; Admin Dose 3,700 UNIT; Start 04/17/19 at 12:00 Tramadol HCl (Ultram) 50 mg Q6H PRN PO MODERATE PAIN LEVEL 4-6 Last administered on 04/19/19at 09:37; Admin Dose 50 MG; Start 04/18/19 at 11:00 Hydromorphone HCl (Dilaudid) 4 mg Q6H PRN PO PAIN 7-10/10; Start 04/18/19 at 11:30 Povidone Iodine (Povidone-Iodine) 1 applic DAILY TOP Last administered on 04/23/19 09:42; Admin Dose 1 APPLIC; Start 04/18/19 at 13:00 Pantoprazole (Protonix Tab) 40 mg BID@0600,1800 PO Last administered on 04/23/19 17:52; Admin Dose 40 MG; Start 04/18/19 at 18:00 Albumin Human 100 ml @ 100 mls/hr WITH DIALYSIS PRN IV SBP <90 DURING DIALYSIS Last administered on 04/21/19 02:58; Admin Dose 100 MLS/HR; Start 04/18/19 at 15:00 Sodium Hypochlorite (Dakins Diluted ()) 1 applic TID TP Last administered on 04/24/19 09:57; Admin Dose 1 APPLIC; Start 04/18/19 at 21:00 Zolpidem Tartrate (Ambien) 5 mg HS PRN PO INSOMNIA Last administered on 04/22/19 22:26; Admin Dose 5 MG; Start 04/19/19 at 03:00 Metoclopramide HCl (Reglan) 5 mg Q6 IV Last administered on 04/24/19 06:05; Admin Dose 5 MG; Start 04/19/19 at 18:00 Lorazepam (Ativan) 0.5 mg Q6H PRN IV AGITATION/ANXIETY Last administered on 04/23/19 23:05; Admin Dose 0.5 MG; Start 04/20/19 at 17:30 Phenylephrine HCl 40 mg/Dextrose 250 ml @ 37.5 mls/hr TITRATE IV Last administered on 04/24/19 08:01; Admin Dose 30 MLS/HR; Start 04/20/19 at 19:00 Gentamicin Sulfate (Gentamicin Iv Per Pharmacy) GENTAMICIN PER PHARMACY NOTE XX ; Start 04/21/19 at 13:30 Gentamicin Sulfate 50 ml @ 100 mls/hr AFTER DIALYSIS IVPB ; Start 04/22/19 at 08:00 Albuterol/ Ipratropium (Duoneb) 3 ml Q6H RESP THERAPY INH Last administered on 04/24/19 08:45; Admin Dose 3 ML; Start 04/22/19 at 20:00 Linezolid 300 ml @ 300 mls/hr Q12 IVPB Last administered on 04/24/19 09:52; Admin Dose 300 MLS/HR; Start 04/22/19 at 21:00 Metronidazole 100 ml @ 100 mls/hr Q8 IVPB Last administered on 04/24/19 06:05; Admin Dose 100 MLS/HR; Start 04/23/19 at 12:00 Albumin Human 100 ml @ 100 mls/hr DAILY IV Last administered on 04/24/19 09:56; Admin Dose 100 MLS/HR; Start 04/23/19 at 12:30; Stop 04/25/19 at 09:59 Zinc Sulfate (Zinc Sulfate) 220 mg DAILY PO Last administered on 04/24/19 09: 53; Admin Dose 220 MG; Start 04/23/19 at 12:30 Multivit/Ca Carb/ B Cmplx/FA/Prenat (Suzie-Paula) 1 tab DAILY PO Last administered on 04/24/19 09:53; Admin Dose 1 TAB; Start 04/23/19 at 12:30 Ascorbic Acid (Vitamin C) 500 mg DAILY PO Last administered on 04/24/19 09:54; Admin Dose 500 MG; Start 04/23/19 at 12:30 Aspirin (Aspirin) 81 mg DAILY PO Last administered on 04/24/19 09:53; Admin Dose 81 MG; Start 04/24/19 at 09:00 FRANCA DE LA FUENTE NP April 24, 2019 11:42
[2019-04-24] MEDS: POVIDONE IODINE 10% 28.4 GM OINT TOP SCH (13:20)
[2019-04-24] MEDS: ATORVASTATIN 20 MG TAB PO SCH (20:42)
[2019-04-24] MEDS: morphine 2 MG INJ IV PRN (21:19)
[2019-04-24] MEDS: LORAZEPAM 2 MG INJ IV PRN (23:06)
[2019-04-25] VITALS (111 sets, daily range): BP systolic 75–117; BP diastolic 21–95; PULSE 81–107; RESP 9–36
[2019-04-25] MEDS: ZOLPIDEM 5 MG TAB PO PRN ×2 (00:14→21:23)
[2019-04-25] MEDS: METOCLOPRAMIDE 10 MG INJ IV SCH ×4 (00:14→18:00)
[2019-04-25] MEDS: ALBUTEROL/IPRATROPIUM (NEB) 3 ML AMP INH SCH ×4 (01:22→20:00)
[2019-04-25] MEDS: ACCU-CHEK XX SCH (02:00)
[2019-04-25] MEDS: morphine 2 MG INJ IV PRN (04:35)
[2019-04-25] MEDS: PHENYLephrine 40 MG in DEXTROSE 5% 246 ML IV SCH ×2 (05:04→09:58)
[2019-04-25] MEDS: metroNIDAZOLE 500 MG/NS (PMX) 100 ML IVPB SCH ×3 (05:33→22:19)
[2019-04-25] MEDS: PANTOPRAZOLE (EC) 40 MG TAB PO SCH ×2 (05:35→18:00)
[2019-04-25] MEDS: INSULIN ASPART [NOVOLOG] 3 ML PEN SC SCH ×4 (07:35→20:44)
--- NOTE | 2019-04-25 07:53 | CONS ---
Consult Date/Type/Reason Admit Date/Time April 17, 2019 at 00:03 Initial Consult Date 04/20/19 Requesting Provider: ALONZO KNOWLES MD Date/Time of Note DATE: 04/25/19 TIME: 07:50 Subjective NO acute events - still on high dose loyda gtt - a. fib rate controlled - con;t anti-Bx - pt DNR now. Per nurse: NO F/C/N/V/D Objective Vitals Vital Signs Date Temp Pulse Resp B/P (MAP) Pulse Ox O2 O2 Flow FiO2 Time Delivery Rate 04/25/19 88 15 86/49 (61) 92 06:45 04/25/19 Room Air 06:00 04/25/19 98.8 04:00 04/24/19 21 19:48 04/22/19 2.0 18:07 Intake and Output 04/24/19 04/24/19 04/25/19 1515:00 23:00 07:00 IntakeIntake Total 1085.0 ml 710.0 ml 473.0 ml BalanceBalance 1085.0 ml 710.0 ml 473.0 ml Exam General: WN/WD/NAD, AOx comfortable HEENT: Unicetric/atraumatic/EOMI (does not follow commands) NECK: JVD elevated, no thyromegaly Lymph: no lymphadenopathy HEART: ir irregular with no S3, II/ systolic murmur at apex LUNGS: Coarse sounds ABD: soft, NT, ND, +BS : Intact Neuro: non focal SKIN: chronic changes EXT: gangrenes Results/Medications Result Diagram: 04/25/19 0415 04/25/19 0415 Results 24 hrs Laboratory Tests Test 04/24/19 08:19 04/24/19 12:22 04/24/19 18:35 04/24/19 20:47 Bedside Glucose 99 120 117 134 Test 04/25/19 04:15 White Blood Count 12.7 H Red Blood Count 4.40 Hemoglobin 13.2 Hematocrit 40.3 Mean Corpuscular 91.6 Volume Mean Corpuscular 30.0 Hemoglobin Mean Corpuscular 32.8 Hemoglobin Concent Red Cell 17.8 H Distribution Width Platelet Count 214 Mean Platelet Volume 10.1 Immature 0.900 H Granulocytes % Neutrophils % 79.4 H Lymphocytes % 5.0 L Monocytes % 11.9 H Eosinophils % 1.5 Basophils % 1.3 Nucleated Red Blood 0.0 Cells % Immature 0.110 H Granulocytes # Neutrophils # 10.1 H Lymphocytes # 0.6 L Monocytes # 1.5 H Eosinophils # 0.2 Basophils # 0.2 H Nucleated Red Blood 0.0 Cells # Sodium Level 131 L Potassium Level 4.7 Chloride Level 93 L Carbon Dioxide Level 23 Anion Gap 15 H Blood Urea Nitrogen 34 H Creatinine 5.74 H Est Glomerular 7 L Filtrat Rate mL/min Glucose Level 129 Lactic Acid Level 2.9 *H Calcium Level 8.5 Home Meds Reported Medications Sucralfate* (Carafate*) 1 Gm Tab, 1 GM PO AC MEALS AND BEDTIME, TAB 03/28/19 Ondansetron Hcl* (Zofran*) 4 Mg Tab, 4 MG PO Q6H PRN for NAUSEA AND/OR VOMITING, TAB 03/28/19 Hydrocodone/Acetaminophen (Healy 5-325 Tablet) 1 Each Tablet, 1 EACH PO Q6H, TAB 03/28/19 Hydromorphone Hcl* (Dilaudid*) 4 Mg Tablet, 4 MG PO Q6H PRN for PAIN -09/07, TAB 03/28/19 Bisacodyl* (Bisacodyl*) 5 Mg Tablet.dr, 5 MG PO BID, TAB 03/28/19 Insulin Aspart* (Novolog Insulin Pen*) 100 Unit/Ml Soln, 0 SC .SLIDING SCALE AC, EA IF BS 150-199=1 UNIT, 200-249=2 UNITS, 250-299=3 UNITS, 300-349=4 UNITS, OVER 349=5 UNITS CALL MD IF BS<60 OR >350 03/28/19 Pantoprazole* (Pantoprazole*) 40 Mg Tablet.dr, 40 MG PO AC BREAKFAST, TAB 03/28/19 Linaclotide (LINZESS) 145 Mcg Capsule, 145 MCG PO DAILY, #30 CAP 03/28/19 Tramadol Hcl* (Tramadol* ER) 100 Mg Tab.er.24h, 100 MG PO TID, #30 TAB 03/28/19 Guaifenesin/Codeine Phosphate (Codeine-Guaifen 10-100 mg/5 ml) 120 Ml Liquid, 5 ML PO TID 03/28/19 Sevelamer Carbonate* (Renvela*) 800 Mg Tablet, 0.8 GM PO WITH MEALS, TAB 03/28/19 Gabapentin* (Gabapentin*) 300 Mg Capsule, 300 MG PO TID, #90 CAP 03/28/19 Ipratropium-Albuterol (Ipratropium-Albuterol) 0.5-3 Mg/3 Ml Ampul.neb, 3 ML INHALATION Q4H, #30 VIAL 03/28/19 Loperamide Hcl* (Loperamide Hcl*) 2 Mg Cap, 2 MG PO Q4H PRN for NEEDED, CAP 03/28/19 Glucagon,Human Recombinant (Glucagon Emergency Kit) 1 Mg Kit, 1 MG IJ NEEDED, KIT 03/28/19 Acetaminophen* (Acetaminophen*) 650 Mg Tablet, 650 MG PO Q4H PRN for FOR FEVER, #30 TAB 03/28/19 Acetaminophen* (Acetaminophen*) 500 MG Extra Strength Tablet, 500 MG PO Q4H PRN for MILD PAIN LEVEL 1-3, TAB 03/28/19 Albuterol Sulfate* (Albuterol Sulfate* Neb) 0.083%-3 Ml Neb, 2.5 MG NEB Q4H PRN for WHEEZING AND SOB, #30 VIAL 03/28/19 Temazepam* (Restoril*) 30 Mg Capsule, 30 MG PO NEEDED PRN for INSOMNIA, CAP 03/28/19 Polyethylene Glycol* (Miralax*) 17 Gm Powd.pack, 17 GM PO DAILY, #30 PACKET 03/28/19 Benzonatate* (Benzonatate*) 100 Mg Capsule, 100 MG PO NEEDED PRN for COUGH, CAP 03/28/19 Lubiprostone* (Amitiza*) 24 Mcg Capsule, 24 MCG PO BID, #60 CAP 03/28/19 Atorvastatin Calcium* (Atorvastatin Calcium*) 20 Mg Tablet, 20 MG PO QHS, #30 TAB 03/28/19 Arginine/Ascorbate Sod/Paula AC (Arginaid Powder) 1 Each Powd.pack, 1 EACH PO DAILY 03/28/19 Multivit/Ca Carb/B Cmplx/Fa* (Suzie-Paula*) 1 Tab Tab, 1 TAB PO DAILY, TAB 03/28/19 Losartan Potassium* (Losartan Potassium*) 25 Mg Tablet, 25 MG PO DAILY, TAB HOLD IF SBP<110 OR HR<60 03/28/19 Furosemide* (Furosemide*) 20 Mg Tablet, 20 MG PO DAILY, #60 TAB 03/28/19 Folic Acid* (Folic Acid*) 1 Mg Tablet, 1 MG PO DAILY, TAB 03/28/19 Famotidine* (Famotidine*) 20 Mg Tablet, 20 MG PO DAILY, #30 TAB 03/28/19 Apixaban* (Eliquis*) 2.5 Mg Tablet, 2.5 MG PO DAILY, TAB 03/28/19 Medications Current Medications Acetaminophen (Tylenol Tab) 650 mg Q4H PRN PO FOR FEVER; Start 04/17/19 at 05:00 Albuterol (Proventil 0.083% (Neb)) 2.5 mg Q4H RESP THERAPY PRN NEB WHEEZING AND SOB; Start 04/17/19 at 05:00 Atorvastatin Calcium (Lipitor) 20 mg QHS PO Last administered on 04/24/19at 20:42; Admin Dose 20 MG; Start 04/17/19 at 21:00 Benzonatate (Tessalon) 100 mg Q6 PRN PO COUGH; Start 04/17/19 at 05:00 Bisacodyl (Dulcolax) 5 mg BID PO Last administered on 04/24/19at 20:42; Admin Dose 5 MG; Start 04/17/19 at 09:00 Folic Acid (Folic Acid) 1 mg DAILY PO Last administered on 04/24/19at 09:53; Admin Dose 1 MG; Start 04/17/19 at 09:00 Gabapentin (Neurontin) 300 mg TID PO Last administered on 04/24/19at 20:42; Admin Dose 300 MG; Start 04/17/19 at 09:00 Ondansetron HCl (Zofran Tab) 4 mg Q6H PRN PO NAUSEA AND/OR VOMITING; Start 04/17/19 at 05:00 Polyethylene Glycol (Miralax) 17 gm DAILY PO Last administered on 04/24/19at 09:54; Admin Dose 17 GM; Start 04/17/19 at 09:00 Morphine Sulfate (morphine) 2 mg Q4H PRN IV SEVERE PAIN LEVEL 7-10 Last administered on 04/25/19at 04:35; Admin Dose 2 MG; Start 04/17/19 at 05:00 Diagnostic Test (Pha) (Accu-Chek) 1 ea 02 XX ; Start 04/18/19 at 02:00 Insulin Aspart (Novolog Insulin Pen) NOVOLOG *MILD* ALGORITHM WITH MEALS BEDTIME SC ; Start 04/17/19 at 08:00 Miscellaneous Information (Pending Santyl Order For Wound Care) This patient davis... PRN PRN XX WOUND CARE; Start 04/17/19 at 05:00 Miscellaneous Information 1 ea NOTE XX ; Start 04/17/19 at 05:30 Glucose (Glutose) 15 gm Q15M PRN PO DECREASED GLUCOSE; Start 04/17/19 at 05:30 Glucose (Glutose) 22.5 gm Q15M PRN PO DECREASED GLUCOSE; Start 04/17/19 at 05:30 Dextrose (D50w Syringe) 25 ml Q15M PRN IV DECREASED GLUCOSE; Start 04/17/19 at 05:30 Dextrose (D50w Syringe) 50 ml Q15M PRN IV DECREASED GLUCOSE; Start 04/17/19 at 05:30 Glucagon (Glucagen) 1 mg Q15M PRN IM DECREASED GLUCOSE; Start 04/17/19 at 05:30 Glucose (Glutose) 15 gm Q15M PRN BUCCAL DECREASED GLUCOSE; Start 04/17/19 at 05:30 Guaifenesin/ Codeine Phosphate (Robitussin Ac Liquid Cup) 5 ml TID PO Last administered on 04/24/19at 20:46; Admin Dose 5 ML; Start 04/17/19 at 09:00 Bisacodyl (Dulcolax Supp) 10 mg DAILY PRN MD CONSTIPATION Last administered on 04/23/19at 16:16; Admin Dose 10 MG; Start 04/17/19 at 10:00 Lubiprostone (Amitiza) 24 mcg BID PO Last administered on 04/24/19at 20:47; Admin Dose 24 MCG; Start 04/17/19 at 12:00 Heparin Sodium (Porcine) (Heparin (1000 Units/ml)) 4,000 unit AFTER DIALYSIS CATHETER Last administered on 04/21/19at 06:12; Admin Dose 3,700 UNIT; Start 04/17/19 at 12:00 Tramadol HCl (Ultram) 50 mg Q6H PRN PO MODERATE PAIN LEVEL 4-6 Last administered on 04/19/19at 09:37; Admin Dose 50 MG; Start 04/18/19 at 11:00 Hydromorphone HCl (Dilaudid) 4 mg Q6H PRN PO PAIN 7-10/10; Start 04/18/19 at 11:30 Povidone Iodine (Povidone-Iodine) 1 applic DAILY TOP Last administered on 04/24/19 13:20; Admin Dose 1 APPLIC; Start 04/18/19 at 13:00 Pantoprazole (Protonix Tab) 40 mg BID@0600,1800 PO Last administered on 04/25/19 05:35; Admin Dose 40 MG; Start 04/18/19 at 18:00 Albumin Human 100 ml @ 100 mls/hr WITH DIALYSIS PRN IV SBP <90 DURING DIALYSIS Last administered on 04/21/19 02:58; Admin Dose 100 MLS/HR; Start 04/18/19 at 15:00 Sodium Hypochlorite (Dakins Diluted ()) 1 applic TID TP Last administered on 04/24/19 20:43; Admin Dose 1 APPLIC; Start 04/18/19 at 21:00 Zolpidem Tartrate (Ambien) 5 mg HS PRN PO INSOMNIA Last administered on 04/25/19at 00:14; Admin Dose 5 MG; Start 04/19/19 at 03:00 Metoclopramide HCl (Reglan) 5 mg Q6 IV Last administered on 04/25/19 05:33; Admin Dose 5 MG; Start 04/19/19 at 18:00 Lorazepam (Ativan) 0.5 mg Q6H PRN IV AGITATION/ANXIETY Last administered on 04/24/19at 23:06; Admin Dose 0.5 MG; Start 04/20/19 at 17:30 Phenylephrine HCl 40 mg/Dextrose 250 ml @ 37.5 mls/hr TITRATE IV Last administered on 04/25/19 05:04; Admin Dose 45 MLS/HR; Start 04/20/19 at 19:00 Gentamicin Sulfate (Gentamicin Iv Per Pharmacy) GENTAMICIN PER PHARMACY NOTE XX ; Start 04/21/19 at 13:30 Gentamicin Sulfate 50 ml @ 100 mls/hr AFTER DIALYSIS IVPB ; Start 04/22/19 at 08:00 Albuterol/ Ipratropium (Duoneb) 3 ml Q6H RESP THERAPY INH Last administered on 04/24/19at 19:46; Admin Dose 3 ML; Start 04/22/19 at 20:00 Linezolid 300 ml @ 300 mls/hr Q12 IVPB Last administered on 04/24/19 20:42; Admin Dose 300 MLS/HR; Start 04/22/19 at 21:00 Metronidazole 100 ml @ 100 mls/hr Q8 IVPB Last administered on 04/25/19 05:33; Admin Dose 100 MLS/HR; Start 04/23/19 at 12:00 Albumin Human 100 ml @ 100 mls/hr DAILY IV Last administered on 04/24/19 09:56; Admin Dose 100 MLS/HR; Start 04/23/19 at 12:30; Stop 04/25/19 at 09:59 Zinc Sulfate (Zinc Sulfate) 220 mg DAILY PO Last administered on 04/24/19 09:53; Admin Dose 220 MG; Start 04/23/19 at 12:30 Multivit/Ca Carb/ B Cmplx/FA/Prenat (Suzie-Paula) 1 tab DAILY PO Last administered on 04/24/19 09:53; Admin Dose 1 TAB; Start 04/23/19 at 12:30 Ascorbic Acid (Vitamin C) 500 mg DAILY PO Last administered on 04/24/19 09:54; Admin Dose 500 MG; Start 04/23/19 at 12:30 Aspirin (Aspirin) 81 mg DAILY PO Last administered on 04/24/19 09:53; Admin Dose 81 MG; Start 04/24/19 at 09:00 Assessment/Plan Hospital Course (Demo Recall) 1. Atrial fibrillation-mainly rate controlled s/p digoxin IVP and on amio - rate controled now. 2. Hypotension-remains on pressors - loyda gtt - brian concentrate per nursing request. 3. Preoperative for lower extremity foot debridement.-Echo EF 60-65/no sig valve abnl/Neg trop x 2 - will llikely require surgery. 4. End-stage renal disease, on hemodialysis. Renal team follows. 5. Dyslipidemia. 6. Lower extremity nonhealing ulcerations - on anti-Bx. 7. Presumed peripheral arterial disease - Rx as needed. 8. Coagulopath-mild improvement - no active bleeding noted. 9. Anemia. 10. Thrombocytopenia-slowly improving. TERESE HAGAN MD April 25, 2019 07:53
--- NOTE | 2019-04-25 07:56 | CONS ---
Assessment/Plan Assessment/Plan Hospital Course (Demo Recall) 63 yo female presented with abdominal pain 1. Abdominal pain secondary to gastritis and mild gastroparesis -continues to have epigastric and lower abdominal pain, no diarrhea, bm 04/24 2. End-stage renal disease on dialysis. 3. Peripheral vascular disease. 4. atrial fibrillation controlled with digoxin and amiodarone 5. Status post cholecystectomy. 6. Diabetes. 7. Hypertension. 8. Depression. 9. Lower extremity wound. -debridement on hold until pt is off pressors and stable 10. S/P EGD 11. Mild gastroparesis 12. Severe gastritis 13. Secondary esophageal varices with no bleeding noted 14. Contact isolation for VRE in wounds Plan Lipase/amylase and LFTs in am Continue antibiotic Continue all supportive care and PPI. BLEXT debridement deferred due to hypotension requiring pressors Pt examined and plan of care discussed with Dr. Jarrett Consultation Date/Type/Reason Admit Date/Time April 17, 2019 at 00:03 Initial Consult Date 04/20/19 Requesting Provider: ALONZO KNOWLES MD Date/Time of Note DATE: 04/25/19 TIME: 07:39 24 HR Interval Summary Free Text/Dictation Continues to have abdominal pain when palpated. No nausea. Tolerating carb controlled diet. BM yesterday with no mention of diarrhea or evidence of GI bleeding. On pressor support. Lactic acid 2.1 Exam/Review of Systems Exam Vitals Vital Signs Date Temp Pulse Resp B/P (MAP) Pulse Ox O2 O2 Flow FiO2 Time Delivery Rate 04/25/19 88 15 86/49 (61) 92 06:45 04/25/19 Room Air 06:00 04/25/19 98.8 04:00 04/24/19 21 19:48 04/22/19 2.0 18:07 Intake and Output 04/24/19 04/24/19 04/25/19 1515:00 23:00 07:00 IntakeIntake Total 1085.0 ml 710.0 ml 473.0 ml BalanceBalance 1085.0 ml 710.0 ml 473.0 ml Constitutional: alert, oriented Psych: no complaints Head: normocephalic Eyes: PERRL Respiratory: diminished breath sounds Cardiovascular: regular rate and rhythm Gastrointestinal: soft, bowel sounds, tender Results Result Diagram: 04/25/19 0415 04/25/19 0415 Results 24hrs Laboratory Tests Test 04/24/19 08:19 04/24/19 12:22 04/24/19 18:35 04/24/19 20:47 Bedside Glucose 99 120 117 134 Test 04/25/19 04:15 White Blood Count 12.7 H Red Blood Count 4.40 Hemoglobin 13.2 Hematocrit 40.3 Mean Corpuscular 91.6 Volume Mean Corpuscular 30.0 Hemoglobin Mean Corpuscular 32.8 Hemoglobin Concent Red Cell 17.8 H Distribution Width Platelet Count 214 Mean Platelet Volume 10.1 Immature 0.900 H Granulocytes % Neutrophils % 79.4 H Lymphocytes % 5.0 L Monocytes % 11.9 H Eosinophils % 1.5 Basophils % 1.3 Nucleated Red Blood 0.0 Cells % Immature 0.110 H Granulocytes # Neutrophils # 10.1 H Lymphocytes # 0.6 L Monocytes # 1.5 H Eosinophils # 0.2 Basophils # 0.2 H Nucleated Red Blood 0.0 Cells # Sodium Level 131 L Potassium Level 4.7 Chloride Level 93 L Carbon Dioxide Level 23 Anion Gap 15 H Blood Urea Nitrogen 34 H Creatinine 5.74 H Est Glomerular 7 L Filtrat Rate mL/min Glucose Level 129 Lactic Acid Level 2.9 *H Calcium Level 8.5 Medications Medication Current Medications Acetaminophen (Tylenol Tab) 650 mg Q4H PRN PO FOR FEVER; Start 04/17/19 at 05:00 Albuterol (Proventil 0.083% (Neb)) 2.5 mg Q4H RESP THERAPY PRN NEB WHEEZING AND SOB; Start 04/17/19 at 05:00 Atorvastatin Calcium (Lipitor) 20 mg QHS PO Last administered on 04/24/19at 20:42; Admin Dose 20 MG; Start 04/17/19 at 21:00 Benzonatate (Tessalon) 100 mg Q6 PRN PO COUGH; Start 04/17/19 at 05:00 Bisacodyl (Dulcolax) 5 mg BID PO Last administered on 04/24/19at 20:42; Admin Dose 5 MG; Start 04/17/19 at 09:00 Folic Acid (Folic Acid) 1 mg DAILY PO Last administered on 04/24/19at 09:53; Admin Dose 1 MG; Start 04/17/19 at 09:00 Gabapentin (Neurontin) 300 mg TID PO Last administered on 04/24/19at 20:42; Admin Dose 300 MG; Start 04/17/19 at 09:00 Ondansetron HCl (Zofran Tab) 4 mg Q6H PRN PO NAUSEA AND/OR VOMITING; Start 04/17/19 at 05:00 Polyethylene Glycol (Miralax) 17 gm DAILY PO Last administered on 04/24/19 09:54; Admin Dose 17 GM; Start 04/17/19 at 09:00 Morphine Sulfate (morphine) 2 mg Q4H PRN IV SEVERE PAIN LEVEL 7-10 Last administered on 04/25/19 04:35; Admin Dose 2 MG; Start 04/17/19 at 05:00 Diagnostic Test (Pha) (Accu-Chek) 1 ea 02 XX ; Start 04/18/19 at 02:00 Insulin Aspart (Novolog Insulin Pen) NOVOLOG *MILD* ALGORITHM WITH MEALS BEDTIME SC ; Start 04/17/19 at 08:00 M[facility] This patient davis... PRN PRN XX WOUND CARE; Start 04/17/19 at 05:00 Miscellaneous Information 1 ea NOTE XX ; Start 04/17/19 at 05:30 Glucose (Glutose) 15 gm Q15M PRN PO DECREASED GLUCOSE; Start 04/17/19 at 05:30 Glucose (Glutose) 22.5 gm Q15M PRN PO DECREASED GLUCOSE; Start 04/17/19 at 05:30 Dextrose (D50w Syringe) 25 ml Q15M PRN IV DECREASED GLUCOSE; Start 04/17/19 at 05:30 Dextrose (D50w Syringe) 50 ml Q15M PRN IV DECREASED GLUCOSE; Start 04/17/19 at 05:30 Glucagon (Glucagen) 1 mg Q15M PRN IM DECREASED GLUCOSE; Start 04/17/19 at 05:30 Glucose (Glutose) 15 gm Q15M PRN BUCCAL DECREASED GLUCOSE; Start 04/17/19 at 05:30 Guaifenesin/ Codeine Phosphate (Robitussin Ac Liquid Cup) 5 ml TID PO Last administered on 04/24/19at 20:46; Admin Dose 5 ML; Start 04/17/19 at 09:00 Bisacodyl (Dulcolax Supp) 10 mg DAILY PRN [place] CONSTIPATION Last administered on 04/23/19at 16:16; Admin Dose 10 MG; Start 04/17/19 at 10:00 Lubiprostone (Amitiza) 24 mcg BID PO Last administered on 04/24/19 20:47; Admin Dose 24 MCG; Start 04/17/19 at 12:00 Heparin Sodium (Porcine) (Heparin (1000 Units/ml)) 4,000 unit AFTER DIALYSIS CATHETER Last administered on 04/21/19 06:12; Admin Dose 3,700 UNIT; Start 04/17/19 at 12:00 Tramadol HCl (Ultram) 50 mg Q6H PRN PO MODERATE PAIN LEVEL 4-6 Last administered on 04/19/19 09:37; Admin Dose 50 MG; Start 04/18/19 at 11:00 Hydromorphone HCl (Dilaudid) 4 mg Q6H PRN PO PAIN 7-10/10; Start 04/18/19 at 11:30 Povidone Iodine (Povidone-Iodine) 1 applic DAILY TOP Last administered on 04/24/19 13:20; Admin Dose 1 APPLIC; Start 04/18/19 at 13:00 Pantoprazole (Protonix Tab) 40 mg BID@0600,1800 PO Last administered on 04/25/19 05:35; Admin Dose 40 MG; Start 04/18/19 at 18:00 Albumin Human 100 ml @ 100 mls/hr WITH DIALYSIS PRN IV SBP <90 DURING DIALYSIS Last administered on 04/21/19 02:58; Admin Dose 100 MLS/HR; Start 04/18/19 at 15:00 Sodium Hypochlorite (Dakins Diluted ()) 1 applic TID TP Last administered on 04/24/19 20:43; Admin Dose 1 APPLIC; Start 04/18/19 at 21:00 Zolpidem Tartrate (Ambien) 5 mg HS PRN PO INSOMNIA Last administered on 00:14; Admin Dose 5 MG; Start 04/19/19 at 03:00 Metoclopramide HCl (Reglan) 5 mg Q6 IV Last administered on 04/25/19 05:33; Admin Dose 5 MG; Start 04/19/19 at 18:00 Lorazepam (Ativan) 0.5 mg Q6H PRN IV AGITATION/ANXIETY Last administered on 04/24/19 23:06; Admin Dose 0.5 MG; Start 04/20/19 at 17:30 Phenylephrine HCl 40 mg/Dextrose 250 ml @ 37.5 mls/hr TITRATE IV Last administered on 04/25/19 05:04; Admin Dose 45 MLS/HR; Start 04/20/19 at 19:00 Gentamicin Sulfate (Gentamicin Iv Per Pharmacy) GENTAMICIN PER PHARMACY NOTE XX ; Start 04/21/19 at 13:30 Gentamicin Sulfate 50 ml @ 100 mls/hr AFTER DIALYSIS IVPB ; Start 04/22/19 at 08:00 Albuterol/ Ipratropium (Duoneb) 3 ml Q6H RESP THERAPY INH Last administered on 04/24/19 19:46; Admin Dose 3 ML; Start 04/22/19 at 20:00 Linezolid 300 ml @ 300 mls/hr Q12 IVPB Last administered on 04/24/19 20:42; Admin Dose 300 MLS/HR; Start 04/22/19 at 21:00 Metronidazole 100 ml @ 100 mls/hr Q8 IVPB Last administered on 04/25/19 05:33 ; Admin Dose 100 MLS/HR; Start 04/23/19 at 12:00 Albumin Human 100 ml @ 100 mls/hr DAILY IV Last administered on 04/24/19 09:56; Admin Dose 100 MLS/HR; Start 04/23/19 at 12:30; Stop 04/25/19 at 09:59 Zinc Sulfate (Zinc Sulfate) 220 mg DAILY PO Last administered on 04/24/19 09:53; Admin Dose 220 MG; Start 04/23/19 at 12:30 Multivit/Ca Carb/ B Cmplx/FA/Prenat (Suzie-Paula) 1 tab DAILY PO Last ad ministered on 04/24/19 09:53; Admin Dose 1 TAB; Start 04/23/19 at 12:30 Ascorbic Acid (Vitamin C) 500 mg DAILY PO Last administered on 04/24/19 09:54; Admin Dose 500 MG; Start 04/23/19 at 12:30 Aspirin (Aspirin) 81 mg DAILY PO Last administered on 04/24/19 09:53; Admin Dose 81 MG; Start 04/24/19 at 09:00 ADALI SMITH April 25, 2019 07:49
[2019-04-25] MEDS: LINEZOLID 600 MG/300 ML (PMX) 300 ML IVPB SCH ×2 (08:20→20:45)
[2019-04-25] MEDS: LUBIPROSTONE 24 MCG CAP PO SCH ×2 (08:22→20:45)
[2019-04-25] MEDS: ASCORBIC ACID 500 MG TAB PO SCH (08:22)
[2019-04-25] MEDS: BISACODYL (EC) 5 MG TAB PO SCH ×2 (08:22→20:46)
[2019-04-25] MEDS: ZINC SULFATE 220 MG CAP PO SCH (08:22)
[2019-04-25] MEDS: POLYETHYLENE GLYCOL 17 GM PACKET PO SCH (08:22)
[2019-04-25] MEDS: FOLIC ACID 1 MG TAB PO SCH (08:22)
[2019-04-25] MEDS: MULTIVIT/CA CARB/B CMPLX/FA TAB PO SCH (08:22)
[2019-04-25] MEDS: ASPIRIN 81 MG TAB PO SCH (08:22)
[2019-04-25] MEDS: GABAPENTIN 300 MG CAP PO SCH ×2 (08:22→13:00)
[2019-04-25] MEDS: DAKINS 0.0125%(1/40) 473 ML SOLUTION TP SCH ×3 (08:23→20:46)
[2019-04-25] MEDS: POVIDONE IODINE 10% 28.4 GM OINT TOP SCH (08:24)
[2019-04-25] MEDS: BALSAM PERU/CASTOR OIL 60 GM TUBE TOP SCH ×2 (08:24→20:46)
[2019-04-25] MEDS: GUAIFENESIN/CODEINE 5ML CUP PO SCH ×3 (08:41→20:46)
--- NOTE | 2019-04-25 09:35 | PN ---
Date/Time of Note Date/Time of Note DATE: 04/25/19 TIME: 09:35 Assessment/Plan VTE Prophylaxis Risk score (from Ns)>0 risk: 10 SCD applied (from Ns): No Lines/Catheters IV Catheter Type (from Nrs): permacath Urinary Cath still in place: No Assessment/Plan Result Diagram: 04/25/19 0415 04/25/19 0415 Results 24hrs Laboratory Tests Test 04/24/19 12:22 04/24/19 18:35 04/24/19 20:47 04/25/19 04:15 Bedside Glucose 120 117 134 White Blood Count 12.7 H Red Blood Count 4.40 Hemoglobin 13.2 Hematocrit 40.3 Mean Corpuscular 91.6 Volume Mean Corpuscular 30.0 Hemoglobin Mean Corpuscular 32.8 Hemoglobin Concent Red Cell 17.8 H Distribution Width Platelet Count 214 Mean Platelet Volume 10.1 Immature 0.900 H Granulocytes % Neutrophils % 79.4 H Lymphocytes % 5.0 L Monocytes % 11.9 H Eosinophils % 1.5 Basophils % 1.3 Nucleated Red Blood 0.0 Cells % Immature 0.110 H Granulocytes # Neutrophils # 10.1 H Lymphocytes # 0.6 L Monocytes # 1.5 H Eosinophils # 0.2 Basophils # 0.2 H Nucleated Red Blood 0.0 Cells # Sodium Level 131 L Potassium Level 4.7 Chloride Level 93 L Carbon Dioxide Level 23 Anion Gap 15 H Blood Urea Nitrogen 34 H Creatinine 5.74 H Est Glomerular 7 L Filtrat Rate mL/min Glucose Level 129 Lactic Acid Level 2.9 *H Calcium Level 8.5 Test 04/25/19 08:18 Bedside Glucose 120 Exam/Review of Systems Exam Vitals Vital Signs Date Temp Pulse Resp B/P (MAP) Pulse Ox O2 O2 Flow FiO2 Time Delivery Rate 04/25/19 92 15 97 21 09:14 04/25/19 86/49 (61) 06:45 04/25/19 Room Air 06:00 04/25/19 98.8 04:00 04/22/19 2.0 18:07 Intake and Output 04/24/19 04/24/19 04/25/19 1515:00 23:00 07:00 IntakeIntake Total 1085.0 ml 710.0 ml 473.0 ml BalanceBalance 1085.0 ml 710.0 ml 473.0 ml Results Results 24hrs Laboratory Tests Test 04/24/19 12:22 04/24/19 18:35 04/24/19 20:47 04/25/19 04:15 Bedside Glucose 120 117 134 White Blood Count 12.7 H Red Blood Count 4.40 Hemoglobin 13.2 Hematocrit 40.3 Mean Corpuscular 91.6 Volume Mean Corpuscular 30.0 Hemoglobin Mean Corpuscular 32.8 Hemoglobin Concent Red Cell 17.8 H Distribution Width Platelet Count 214 Mean Platelet Volume 10.1 Immature 0.900 H Granulocytes % Neutrophils % 79.4 H Lymphocytes % 5.0 L Monocytes % 11.9 H Eosinophils % 1.5 Basophils % 1.3 Nucleated Red Blood 0.0 Cells % Immature 0.110 H Granulocytes # Neutrophils # 10.1 H Lymphocytes # 0.6 L Monocytes # 1.5 H Eosinophils # 0.2 Basophils # 0.2 H Nucleated Red Blood 0.0 Cells # Sodium Level 131 L Potassium Level 4.7 Chloride Level 93 L Carbon Dioxide Level 23 Anion Gap 15 H Blood Urea Nitrogen 34 H Creatinine 5.74 H Est Glomerular 7 L Filtrat Rate mL/min Glucose Level 129 Lactic Acid Level 2.9 *H Calcium Level 8.5 Test 04/25/19 08:18 Bedside Glucose 120 Medications Medication Current Medications Acetaminophen (Tylenol Tab) 650 mg Q4H PRN PO FOR FEVER; Start 04/17/19 at 05:00 Albuterol (Proventil 0.083% (Neb)) 2.5 mg Q4H RESP THERAPY PRN NEB WHEEZING AND SOB; Start 04/17/19 at 05:00 Atorvastatin Calcium (Lipitor) 20 mg QHS PO Last administered on 04/24/19at 20:42; Admin Dose 20 MG; Start 04/17/19 at 21:00 Benzonatate (Tessalon) 100 mg Q6 PRN PO COUGH; Start 04/17/19 at 05:00 Bisacodyl (Dulcolax) 5 mg BID PO Last administered on 04/25/19at 08:22; Admin Dose 5 MG; Start 04/17/19 at 09:00 Folic Acid (Folic Acid) 1 mg DAILY PO Last administered on 04/25/19at 08:22; Admin Dose 1 MG; Start 04/17/19 at 09:00 Gabapentin (Neurontin) 300 mg TID PO Last administered on 04/25/19 08:22; Admin Dose 300 MG; Start 04/17/19 at 09:00 Ondansetron HCl (Zofran Tab) 4 mg Q6H PRN PO NAUSEA AND/OR VOMITING; Start 04/17/19 at 05:00 Polyethylene Glycol (Miralax) 17 gm DAILY PO Last administered on 04/25/19 08:22; Admin Dose 17 GM; Start 04/17/19 at 09:00 Morphine Sulfate (morphine) 2 mg Q4H PRN IV SEVERE PAIN LEVEL 7-10 Last administered on 04/25/19 04:35; Admin Dose 2 MG; Start 04/17/19 at 05:00 Diagnostic Test (Pha) (Accu-Chek) 1 ea 02 XX ; Start 04/18/19 at 02:00 Insulin Aspart (Novolog Insulin Pen) NOVOLOG *MILD* ALGORITHM WITH MEALS BEDTIME SC ; Start 04/17/19 at 08:00 Miscellaneous Information (Pending [facility] Order For Wound Care) This patient davis... PRN PRN XX WOUND CARE; Start 04/17/19 at 05:00 Miscellaneous Information 1 ea NOTE XX ; Start 04/17/19 at 05:30 Glucose (Glutose) 15 gm Q15M PRN PO DECREASED GLUCOSE; Start 04/17/19 at 05:30 Glucose (Glutose) 22.5 gm Q15M PRN PO DECREASED GLUCOSE; Start 04/17/19 at 05:30 Dextrose (D50w Syringe) 25 ml Q15M PRN IV DECREASED GLUCOSE; Start 04/17/19 at 05:30 Dextrose (D50w Syringe) 50 ml Q15M PRN IV DECREASED GLUCOSE; Start 04/17/19 at 05:30 Glucagon (Glucagen) 1 mg Q15M PRN IM DECREASED GLUCOSE; Start 04/17/19 at 05:30 Glucose (Glutose) 15 gm Q15M PRN BUCCAL DECREASED GLUCOSE; Start 04/17/19 at 05:30 Guaifenesin/ Codeine Phosphate (Robitussin Ac Liquid Cup) 5 ml TID PO Last administered on 04/25/19 08:41; Admin Dose 5 ML; Start 04/17/19 at 09:00 Bisacodyl (Dulcolax Supp) 10 mg DAILY PRN [place] CONSTIPATION Last administered on 04/23/19 16:16; Admin Dose 10 MG; Start 04/17/19 at 10:00 Lubiprostone (Amitiza) 24 mcg BID PO Last administered on 04/25/19 08:22; Admin Dose 24 MCG; Start 04/17/19 at 12:00 Heparin Sodium (Porcine) (Heparin (1000 Units/ml)) 4,000 unit AFTER DIALYSIS CATHETER Last administered on 04/21/19 06:12; Admin Dose 3,700 UNIT; Start 04/17/19 at 12:00 Tramadol HCl (Ultram) 50 mg Q6H PRN PO MODERATE PAIN LEVEL 4-6 Last administered on 04/19/19 09:37; Admin Dose 50 MG; Start 04/18/19 at 11:00 Hydromorphone HCl (Dilaudid) 4 mg Q6H PRN PO PAIN 7-10/10; Start 04/18/19 at 11:30 Povidone Iodine (Povidone-Iodine) 1 applic DAILY TOP Last administered on 04/25/19 08:24; Admin Dose 1 APPLIC; Start 04/18/19 at 13:00 Pantoprazole (Protonix Tab) 40 mg BID@0600,1800 PO Last administered on 05:35; Admin Dose 40 MG; Start 04/18/19 at 18:00 Albumin Human 100 ml @ 100 mls/hr WITH DIALYSIS PRN IV SBP <90 DURING DIALYSIS Last administered on 04/21/19 02:58; Admin Dose 100 MLS/HR; Start 04/18/19 at 15:00 Sodium Hypochlorite (Dakins Diluted ()) 1 applic TID TP Last administered on 04/25/19 08:23; Admin Dose 1 APPLIC; Start 04/18/19 at 21:00 Zolpidem Tartrate (Ambien) 5 mg HS PRN PO INSOMNIA Last administered on 04/25/19 00:14; Admin Dose 5 MG; Start 04/19/19 at 03:00 Metoclopramide HCl (Reglan) 5 mg Q6 IV Last administered on 04/25/19 05:33; Admin Dose 5 MG; Start 04/19/19 at 18:00 Lorazepam (Ativan) 0.5 mg Q6H PRN IV AGITATION/ANXIETY Last administered on 04/24/19 23:06; Admin Dose 0.5 MG; Start 04/20/19 at 17:30 Phenylephrine HCl 40 mg/Dextrose 250 ml @ 37.5 mls/hr TITRATE IV Last administered on 04/25/19 05:04; Admin Dose 45 MLS/HR; Start 04/20/19 at 19:00 Gentamicin Sulfate (Gentamicin Iv Per Pharmacy) GENTAMICIN PER PHARMACY NOTE XX ; Start 04/21/19 at 13:30 Gentamicin Sulfate 50 ml @ 100 mls/hr AFTER DIALYSIS IVPB ; Start 04/22/19 at 08:00 Albuterol/ Ipratropium (Duoneb) 3 ml Q6H RESP THERAPY INH Last administered on 04/25/19 09:14; Admin Dose 3 ML; Start 04/22/19 at 20:00 Linezolid 300 ml @ 300 mls/hr Q12 IVPB Last administered on 04/25/19 08:20; Admin Dose 300 MLS/HR; Start 04/22/19 at 21:00 Metronidazole 100 ml @ 100 mls/hr Q8 IVPB Last administered on 04/25/19 05:33; Admin Dose 100 MLS/HR; Start 04/23/19 at 12:00 Albumin Human 100 ml @ 100 mls/hr DAILY IV Last administered on 04/24/19 09:56; Admin Dose 100 MLS/HR; Start 04/23/19 at 12:30; Stop 04/25/19 at 09:59 Zinc Sulfate (Zinc Sulfate) 220 mg DAILY PO Last administered on 04/25/19 08:22; Admin Dose 220 MG; Start 04/23/19 at 12:30 Multivit/Ca Carb/ B Cmplx/FA/Prenat (Suzie-Paula) 1 tab DAILY PO Last administered on 04/25/19 08:22; Admin Dose 1 TAB; Start 04/23/19 at 12:30 Ascorbic Acid (Vitamin C) 500 mg DAILY PO Last administered on 04/25/19 08:22; Admin Dose 500 MG; Start 04/23/19 at 12:30 Aspirin (Aspirin) 81 mg DAILY PO Last administered on 04/25/19 08:22; Admin Dose 81 MG; Start 04/24/19 at 09:00 JACOB GONZALEZ MD April 25, 2019 09:35
[2019-04-25] MEDS: ALBUMIN HUMAN 25% 100 ML IV SCH (09:59)
--- NOTE | 2019-04-25 12:02 | CONS ---
Assessment/Plan Assessment/Plan Hospital Course (Demo Recall) Patient is very weak, on Geoffrey-Synephrine drip complaining of generalized pain, no fevers overnight, family at bedside. WBC 12.7 H&H 13 point 2F 40.3 platelets 214 neutrophils 79.4 Microbiology: Wound culture grew E. coli, MRSA, VRE, Morganella morganii Antimicrobials: Gentamicin, Zyvox, Flagyl MRI of right ankle revealed suspicion for early osteomyelitis of the posterior calcaneus. MRI of left ankle revealed severe midfoot arthrosis with associated midfoot collapse with erosive changes at the base of the subluxed cuboid without increased signal to suggest acute osteomyelitis. Please see full report in the chart Indwelling: Right chest permacath. Allergy: Amoxicillin Physical examination: This is a wasted obese well-developed fragile elderly woman who is awake in no distress. Head atraumatic normocephalic. Neck is supple. Chest rise symmetrical breath sounds diminished bases. Heart: S1-S2. Abdomen soft bowel sounds present. Extremities with bilateral lower e xtremities gangrene Assessment: 1. Sepsis with shock 2. Bilateral lower extremities gangrene/OM 3. End-stage renal disease 4. Peripheral arterial disease, status post right posterior tibial artery angioplasty 03/01/19 5. Diabetes 6. Failure to thrive 7. Afib s/p RVR Plan: Patient remains unstable, on pressors, continue present care, antibiotics, repeat chest x-ray, prognosis is guarded, patient is DNR status Consultation Date/Type/Reason Admit Date/Time April 17, 2019 at 00:03 Initial Consult Date 04/17/19 Type of Consult id Requesting Provider: ALONZO KNOWLES MD Date/Time of Note DATE: 04/25/19 TIME: 11:59 Exam/Review of Systems Exam Vitals Vital Signs Date Temp Pulse Resp B/P (MAP) Pulse Ox O2 O2 Flow FiO2 Time Delivery Rate 04/25/19 94 18 101/52 99 11:30 (68) 04/25/19 Room Air 11:00 04/25/19 21 09:14 04/25/19 98.8 04:00 04/22/19 2.0 18:07 Intake and Output 04/24/19 04/24/19 04/25/19 1515:00 23:00 07:00 IntakeIntake Total 1085.0 ml 710.0 ml 473.0 ml BalanceBalance 1085.0 ml 710.0 ml 473.0 ml Results Result Diagram: 04/25/19 0415 04/25/19 0415 Results 24hrs Laboratory Tests Test 04/24/19 12:22 04/24/19 18:35 04/24/19 20:47 04/25/19 04:15 Bedside Glucose 120 117 134 White Blood Count 12.7 H Red Blood Count 4.40 Hemoglobin 13.2 Hematocrit 40.3 Mean Corpuscular 91.6 Volume Mean Corpuscular 30.0 Hemoglobin Mean Corpuscular 32.8 Hemoglobin Concent Red Cell 17.8 H Distribution Width Platelet Count 214 Mean Platelet Volume 10.1 Immature 0.900 H Granulocytes % Neutrophils % 79.4 H Lymphocytes % 5.0 L Monocytes % 11.9 H Eosinophils % 1.5 Basophils % 1.3 Nucleated Red Blood 0.0 Cells % Immature 0.110 H Granulocytes # Neutrophils # 10.1 H Lymphocytes # 0.6 L Monocytes # 1.5 H Eosinophils # 0.2 Basophils # 0.2 H Nucleated Red Blood 0.0 Cells # Sodium Level 131 L Potassium Level 4.7 Chloride Level 93 L Carbon Dioxide Level 23 Anion Gap 15 H Blood Urea Nitrogen 34 H Creatinine 5.74 H Est Glomerular 7 L Filtrat Rate mL/min Glucose Level 129 Lactic Acid Level 2.9 *H Calcium Level 8.5 Test 04/25/19 08:18 Bedside Glucose 120 Medications Medication Current Medications Acetaminophen (Tylenol Tab) 650 mg Q4H PRN PO FOR FEVER; Start 04/17/19 at 05:0 0 Albuterol (Proventil 0.083% (Neb)) 2.5 mg Q4H RESP THERAPY PRN NEB WHEEZING AND SOB; Start 04/17/19 at 05:00 Atorvastatin Calcium (Lipitor) 20 mg QHS PO Last administered on 04/24/19at 20:42; Admin Dose 20 MG; Start 04/17/19 at 21:00 Benzonatate (Tessalon) 100 mg Q6 PRN PO COUGH; Start 04/17/19 at 05:00 Bisacodyl (Dulcolax) 5 mg BID PO Last administered on 04/25/19at 08:22; Admin Dose 5 MG; Start 04/17/19 at 09:00 Folic Acid (Folic Acid) 1 mg DAILY PO Last administered on 04/25/19 08:22; A dmin Dose 1 MG; Start 04/17/19 at 09:00 Gabapentin (Neurontin) 300 mg TID PO Last administered on 04/25/19 08:22; Admin Dose 300 MG; Start 04/17/19 at 09:00 Ondansetron HCl (Zofran Tab) 4 mg Q6H PRN PO NAUSEA AND/OR VOMITING; Start 04/17/19 at 05:00 Polyethylene Glycol (Miralax) 17 gm DAILY PO Last administered on 04/25/19 08:22; Admin Dose 17 GM; Start 04/17/19 at 09:00 Morphine Sulfate (morphine) 2 mg Q4H PRN IV SEVERE PAIN LEVEL 7-10 Last administered on 04/25/19 04:35; Admin Dose 2 MG; Start 04/17/19 at 05:00 Diagnostic Test (Pha) (Accu-Chek) 1 ea 02 XX ; Start 04/18/19 at 02:00 Insulin Aspart (Novolog Insulin Pen) NOVOLOG *MILD* ALGORITHM WITH MEALS BEDTIME SC ; Start 04/17/19 at 08:00 Miscellaneous Information ([facility]) This patient davis... PRN PRN XX WOUND CARE; Start 04/17/19 at 05:00 Miscellaneous Information 1 ea NOTE XX ; Start 04/17/19 at 05:30 Glucose (Glutose) 15 gm Q15M PRN PO DECREASED GLUCOSE; Start 04/17/19 at 05:30 Glucose (Glutose) 22.5 gm Q15M PRN PO DECREASED GLUCOSE; Start 04/17/19 at 05:30 Dextrose (D50w Syringe) 25 ml Q15M PRN IV DECREASED GLUCOSE; Start 04/17/19 at 05:30 Dextrose (D50w Syringe) 50 ml Q15M PRN IV DECREASED GLUCOSE; Start 04/17/19 at 05:30 Glucagon (Glucagen) 1 mg Q15M PRN IM DECREASED GLUCOSE; Start 04/17/19 at 05:30 Glucose (Glutose) 15 gm Q15M PRN BUCCAL DECREASED GLUCOSE; Start 04/17/19 at 05:30 Guaifenesin/ Codeine Phosphate (Robitussin Ac Liquid Cup) 5 ml TID PO Last administered on 04/25/19at 08:41; Admin Dose 5 ML; Start 04/17/19 at 09:00 Bisacodyl (Dulcolax Supp) 10 mg DAILY PRN [place] CONSTIPATION Last administered on 04/23/19 16:16; Admin Dose 10 MG; Start 04/17/19 at 10:00 Lubiprostone (Amitiza) 24 mcg BID PO Last administered on 04/25/19 08:22; Admin Dose 24 MCG; Start 04/17/19 at 12:00 Heparin Sodium (Porcine) (Heparin (1000 Units/ml)) 4,000 unit AFTER DIALYSIS CATHETER Last administered on 04/21/19 06:12; Admin Dose 3,700 UNIT; Start 04/17/19 at 12:00 Tramadol HCl (Ultram) 50 mg Q6H PRN PO MODERATE PAIN LEVEL 4-6 Last administered on 04/19/19 09:37; Admin Dose 50 MG; Start 04/18/19 at 11:00 Povidone Iodine (Povidone-Iodine) 1 applic DAILY TOP Last administered on 04/25/19 08:24; Admin Dose 1 APPLIC; Start 04/18/19 at 13:00 Pantoprazole (Protonix Tab) 40 mg BID@0600,1800 PO Last administered on 04/25/19 05:35; Admin Dose 40 MG; Start 04/18/19 at 18:00 Albumin Human 100 ml @ 100 mls/hr WITH DIALYSIS PRN IV SBP <90 DURING DIALYSIS Last administered on 04/21/19 02:58; Admin Dose 100 MLS/HR; Start 04/18/19 at 15:00 Sodium Hypochlorite (Dakins Diluted ()) 1 applic TID TP Last administered on 04/25/19 08:23; Admin Dose 1 APPLIC; Start 04/18/19 at 21:00 Zolpidem Tartrate (Ambien) 5 mg HS PRN PO INSOMNIA Last administered on 04/25/19 00:14; Admin Dose 5 MG; Start 04/19/19 at 03:00 Metoclopramide HCl (Reglan) 5 mg Q6 IV Last administered on 04/25/19 05:33; Admin Dose 5 MG; Start 04/19/19 at 18:00 Gentamicin Sulfate (Gentamicin Iv Per Pharmacy) GENTAMICIN PER PHARMACY NOTE XX ; Start 04/21/19 at 13:30 Gentamicin Sulfate 50 ml @ 100 mls/hr AFTER DIALYSIS IVPB ; Start 04/22/19 at 08:00 Albuterol/ Ipratropium (Duoneb) 3 ml Q6H RESP THERAPY INH Last administered on 04/25/19 09:14; Admin Dose 3 ML; Start 04/22/19 at 20:00 Linezolid 300 ml @ 300 mls/hr Q12 IVPB Last administered on 04/25/19 08:20; Admin Dose 300 MLS/HR; Start 04/22/19 at 21:00 Metronidazole 100 ml @ 100 mls/hr Q8 IVPB Last administered on 04/25/19 05:33; Admin Dose 100 MLS/HR; Start 04/23/19 at 12:00 Zinc Sulfate (Zinc Sulfate) 220 mg DAILY PO Last administered on 04/25/19 08:22; Admin Dose 220 MG; Start 04/23/19 at 12:30 Multivit/Ca Carb/ B Cmplx/FA/Prenat (Suzie-Paula) 1 tab DAILY PO Last administered on 04/25/19 08:22; Admin Dose 1 TAB; Start 04/23/19 at 12:30 Ascorbic Acid (Vitamin C) 500 mg DAILY PO Last administered on 04/25/19 08:22; Admin Dose 500 MG; Start 04/23/19 at 12:30 Aspirin (Aspirin) 81 mg DAILY PO Last administered on 04/25/19 08:22; Admin Dose 81 MG; Start 04/24/19 at 09:00 Phenylephrine HCl 80 mg/Dextrose 250 ml @ 18.75 mls/ hr TITRATE IV ; Start 04/25/19 at 11:00 JOHANA KULKARNI NP April 25, 2019 12:02
[2019-04-25] MEDS: traMADol 50 MG TAB PO PRN ×3 (12:05→20:49)
--- NOTE | 2019-04-25 12:33 | RADRPT ---
Echocardiogram Report Patient Name: TROY GUTIERREZPatient ID: [id number] : 1955 ([id number] )Study Date: 04/21/2019 7:10:04 AM Gender: FAccession #: [id number] Tech: [place] Location: Ref.Physician: JACOB GONZALEZ Height(Cm): BSA: Weight(Kg): Quality: AdequateAccount #: Procedures: Echocardiographic Report: Transthoracic echocardiogram examination. Indications: Abnormal EKG. Measurements: Doppler Measurement Value Normal Range TR Peak Benjamin 3.6 [ 100.0 - 280.0 ] cm/sec TR Peak PG 51.0 mmHg RVSP 59.0 [ 10.0 - 36.0 ] mmHg RA Pressure 8.0 mmHg Findings: Left Ventricle: The left ventricular ejection fraction is visually estimated at >65 %. Mitral Valve: Moderate mitral annular calcification. Trivial mitral regurgitation. Tricuspid Valve: Normal appearance of the tricuspid valve. The estimated Peak RVSP is 59 mmHg. There is mild to moderate tricuspid regurgitation. Pericardium: Trivial effusion. Left pleural effusion seen. IVC: Dilated inferior vena cava with normal respiratory collapse. Conclusions: The left ventricular ejection fraction is visually estimated at >65 %. Moderate mitral annular calcification. Trivial mitral regurgitation. Normal appearance of the tricuspid valve. The estimated Peak RVSP is 59 mmHg. There is mild to moderate tricuspid regurgitation. Trivial effusion. Left pleural effusion seen. Electronically Signed By: Rock Flowers 2019-04-21 18:31:32 PDT
[2019-04-25] MEDS: PHENYLephrine 80 MG in DEXTROSE 5% 242 ML IV SCH ×2 (13:27→19:25)
--- NOTE | 2019-04-25 14:45 | RADRPT ---
Vent Rate: 74 bpm RR Interval: [address] Interval: 131 msec QRS Duration: 104 msec QT Interval: 444 msec QTC Interval: 495 msec P-R-T [place]: 51 - -5 - 109 degrees Sinus rhythm...normal P axis, V-rate 50- 99 Abnrm T, probable ischemia, anterolateral lds...T <-0.50mV, I aVL V2-V6 Electronically Signed By: Rock Flowers
[2019-04-25] MEDS ORDERED: MIDODRINE 5 MG TAB PO ONE (15:15)
--- NOTE | 2019-04-25 16:57 | PN ---
Date/Time of Note Date/Time of Note DATE: 04/25/19 TIME: 16:49 Assessment/Plan VTE Prophylaxis Risk score (from Ns)>0 risk: 11 SCD applied (from [facility] [place] No SCD contraindicated: low risk/ambulating Pharmacological prophylaxis: NA/contraindicated Pharm contraindication: low risk/ambulating Lines/Catheters IV Catheter Type (from [facility]): Permacath Urinary Cath still in place: No Reason Cath still needed: urinary retention Assessment/Plan Assessment/Plan #Shock likely secondary to sepsis due to lower extremity wounds with multiple bugs E. coli Morganella VRE # Abdominal pain with some nausea. CT of the abdomen and pelvis showed severe left hydronephrosis, status post cholecystectomy. LFTs within normal limit except mildly elevated alkaline phosphatase. Lipase is 22. Likely secondary to constipation vs gastritis vs gastroparesis abdominal pain is still persistent. Versus choledocholithiasis s/p EGD with severe gastritis #. Severe left hydronephrosis secondary to UPJ junction, no urinary stone. probably chronic , no intervention per urology # Bilateral lower extremity ulcers with gangrene, followed by Dr. Schultz/ Ivonne # End-stage renal disease, on hemodialysis. #. Hypotension, on dialysis. could be secondary to infected ulcers, hold bp meds # Diabetes mellitus type II. #. Hypertension. # Peripheral vascular disease. #. History of gastritis. #. History of gastroparesis # History of atrial fibrillation. # anasarca #. Afib, controlled now, Assessment/Plan -We will do a session of dialysis today due to anasarca volume overload, to slow dialysis with midodrine and albumin -The new with gentamicin/Flagyl/Zyvox -Continue with phenylephrine -contact Isolation for VRE wounds -surgery on hold due to hypotension -strict BS control -c.e phos. binding agents -GI proph. Protonix -Give with tramadol for pain/morphine, hold off Dilaudid and gabapentin due to altered mental status -cw with aspirin/statin -GI/DVT prophylaxis Result Diagram: 04/25/19 0415 04/25/19 0415 Results 24hrs Laboratory Tests Test 04/24/19 18:35 04/24/19 20:47 04/25/19 04:15 04/25/19 08:18 Bedside Glucose 117 134 120 White Blood Count 12.7 H Red Blood Count 4.40 Hemoglobin 13.2 Hematocrit 40.3 Mean Corpuscular 91.6 Volume Mean Corpuscular 30.0 Hemoglobin Mean Corpuscular 32.8 Hemoglobin Concent Red Cell 17.8 H Distribution Width Platelet Count 214 Mean Platelet Volume 10.1 Immature 0.900 H Granulocytes % Neutrophils % 79.4 H Lymphocytes % 5.0 L Monocytes % 11.9 H Eosinophils % 1.5 Basophils % 1.3 Nucleated Red Blood 0.0 Cells % Immature 0.110 H Granulocytes # Neutrophils # 10.1 H Lymphocytes # 0.6 L Monocytes # 1.5 H Eosinophils # 0.2 Basophils # 0.2 H Nucleated Red Blood 0.0 Cells # Sodium Level 131 L Potassium Level 4.7 Chloride Level 93 L Carbon Dioxide Level 23 Anion Gap 15 H Blood Urea Nitrogen 34 H Creatinine 5.74 H Est Glomerular 7 L Filtrat Rate mL/min Glucose Level 129 Lactic Acid Level 2.9 *H Calcium Level 8.5 Test 04/25/19 12:07 Bedside Glucose 136 Subjective 24 Hr Interval Summary Free Text/Dictation Patient still remains on Geoffrey-Synephrine Feels weak Has anasarca Little lethargic today Exam/Review of Systems Exam Vitals Vital Signs Date Temp Pulse Resp B/P (MAP) Pulse Ox O2 O2 Flow FiO2 Time Delivery Rate 04/25/19 98.5 93 17 99/54 (69) 92 Room Air 16:00 04/25/19 21 09:14 04/22/19 2.0 18:07 Intake and Output 04/24/19 04/24/19 04/25/19 1515:00 23:00 07:00 IntakeIntake Total 1085.0 ml 710.0 ml 473.0 ml BalanceBalance 1085.0 ml 710.0 ml 473.0 ml Exam rght chest permcath Constitutional: Little lethargic, anasarca Psych: no complaints Head: normocephalic Eyes: nl conjunctiva Neck: supple Respiratory: diminished breath sounds Cardiovascular: regular rate and rhythm Extremities: other (surgical dressing on feet) Generalized swelling more on the arms Bilateral lower extremity wounds black eschar Results Results 24hrs Laboratory Tests Test 04/24/19 18:35 04/24/19 20:47 04/25/19 04:15 04/25/19 08:18 Bedside Glucose 117 134 120 White Blood Count 12.7 H Red Blood Count 4.40 Hemoglobin 13.2 Hematocrit 40.3 Mean Corpuscular 91.6 Volume Mean Corpuscular 30.0 Hemoglobin Mean Corpuscular 32.8 Hemoglobin Concent Red Cell 17.8 H Distribution Width Platelet Count 214 Mean Platelet Volume 10.1 Immature 0.900 H Granulocytes % Neutrophils % 79.4 H Lymphocytes % 5.0 L Monocytes % 11.9 H Eosinophils % 1.5 Basophils % 1.3 Nucleated Red Blood 0.0 Cells % Immature 0.110 H Granulocytes # Neutrophils # 10.1 H Lymphocytes # 0.6 L Monocytes # 1.5 H Eosinophils # 0.2 Basophils # 0.2 H Nucleated Red Blood 0.0 Cells # Sodium Level 131 L Potassium Level 4.7 Chloride Level 93 L Carbon Dioxide Level 23 Anion Gap 15 H Blood Urea Nitrogen 34 H Creatinine 5.74 H Est Glomerular 7 L Filtrat Rate mL/min Glucose Level 129 Lactic Acid Level 2.9 *H Calcium Level 8.5 Test 04/25/19 12:07 Bedside Glucose 136 Medications Medication Current Medications Acetaminophen (Tylenol Tab) 650 mg Q4H PRN PO FOR FEVER; Start 04/17/19 at 05:00 Albuterol (Proventil 0.083% (Neb)) 2.5 mg Q4H RESP THERAPY PRN NEB WHEEZING AND SOB; Start 04/17/19 at 05:00 Atorvastatin Calcium (Lipitor) 20 mg QHS PO Last administered on 04/24/19at 20:42; Admin Dose 20 MG; Start 04/17/19 at 21:00 Benzonatate (Tessalon) 100 mg Q6 PRN PO COUGH; Start 04/17/19 at 05:00 Bisacodyl (Dulcolax) 5 mg BID PO Last administered on 04/25/19at 08:22; Admin Dose 5 MG; Start 04/17/19 at 09:00 Folic Acid (Folic Acid) 1 mg DAILY PO Last administered on 04/25/19at 08:22; Admin Dose 1 MG; Start 04/17/19 at 09:00 Gabapentin (Neurontin) 300 mg TID PO Last administered on 04/25/19at 08:22; Admin Dose 300 MG; Start 04/17/19 at 09:00 Ondansetron HCl (Zofran Tab) 4 mg Q6H PRN PO NAUSEA AND/OR VOMITING; Start 04/17/19 at 05:00 Polyethylene Glycol (Miralax) 17 gm DAILY PO Last administered on 04/25/19 08:22; Admin Dose 17 GM; Start 04/17/19 at 09:00 Morphine Sulfate (morphine) 2 mg Q4H PRN IV SEVERE PAIN LEVEL 7-10 Last administered on 04/25/19at 04:35; Admin Dose 2 MG; Start 04/17/19 at 05:00 Diagnostic Test (Pha) (Accu-Chek) 1 ea 02 XX ; Start 04/18/19 at 02:00 Insulin Aspart (Novolog Insulin Pen) NOVOLOG *MILD* ALGORITHM WITH MEALS BEDTIME SC ; Start 04/17/19 at 08:00 Miscellaneous Information (Pending [facility] Order For Wound Care) This patient davis... PRN PRN XX WOUND CARE; Start 04/17/19 at 05:00 Miscellaneous Information 1 ea NOTE XX ; Start 04/17/19 at 05:30 Glucose (Glutose) 15 gm Q15M PRN PO DECREASED GLUCOSE; Start 04/17/19 at 05:30 Glucose (Glutose) 22.5 gm Q15M PRN PO DECREASED GLUCOSE; Start 04/17/19 at 05:30 Dextrose (D50w Syringe) 25 ml Q15M PRN IV DECREASED GLUCOSE; Start 04/17/19 at 05:30 Dextrose (D50w Syringe) 50 ml Q15M PRN IV DECREASED GLUCOSE; Start 04/17/19 at 05:30 Glucagon (Glucagen) 1 mg Q15M PRN IM DECREASED GLUCOSE; Start 04/17/19 at 05:30 Glucose (Glutose) 15 gm Q15M PRN BUCCAL DECREASED GLUCOSE; Start 04/17/19 at 05:30 Guaifenesin/ Codeine Phosphate (Robitussin Ac Liquid Cup) 5 ml TID PO Last ad ministered on 04/25/19at 12:05; Admin Dose 5 ML; Start 04/17/19 at 09:00 Bisacodyl (Dulcolax Supp) 10 mg DAILY PRN [place] CONSTIPATION Last administered on 04/23/19at 16:16; Admin Dose 10 MG; Start 04/17/19 at 10:00 Lubiprostone (Amitiza) 24 mcg BID PO Last administered on 04/25/19at 08:22; Admin Dose 24 MCG; Start 04/17/19 at 12:00 Heparin Sodium (Porcine) (Heparin (1000 Units/ml)) 4,000 unit AFTER DIALYSIS CATHETER Last administered on 04/21/19 06:12; Admin Dose 3,700 UNIT; Start 04/17/19 at 12:00 Tramadol HCl (Ultram) 50 mg Q6H PRN PO MODERATE PAIN LEVEL 4-6 Last administered on 04/25/19 12:05; Admin Dose 50 MG; Start 04/18/19 at 11:00 Povidone Iodine (Povidone-Iodine) 1 applic DAILY TOP Last administered on 04/25/19 08:24; Admin Dose 1 APPLIC; Start 04/18/19 at 13:00 Pantoprazole (Protonix Tab) 40 mg BID@0600,1800 PO Last administered on 04/25/19 05:35; Admin Dose 40 MG; Start 04/18/19 at 18:00 Albumin Human 100 ml @ 100 mls/hr WITH DIALYSIS PRN IV SBP <90 DURING DIALYSIS Last administered on 04/21/19 02:58; Admin Dose 100 MLS/HR; Start 04/18/19 at 15:00 Sodium Hypochlorite (Dakins Diluted (1/40)) 1 applic TID TP Last administered on 04/25/19 13:28; Admin Dose 1 APPLIC; Start 04/18/19 at 21:00 Zolpidem Tartrate (Ambien) 5 mg HS PRN PO INSOMNIA Last administered on 00:14; Admin Dose 5 MG; Start 04/19/19 at 03:00 Metoclopramide HCl (Reglan) 5 mg Q6 IV Last administered on 04/25/19 12:08; Admin Dose 5 MG; Start 04/19/19 at 18:00 Gentamicin Sulfate (Gentamicin Iv Per Pharmacy) GENTAMICIN PER PHARMACY NOTE XX ; Start 04/21/19 at 13:30 Gentamicin Sulfate 50 ml @ 100 mls/hr AFTER DIALYSIS IVPB ; Start 04/22/19 at 08:00 Albuterol/ Ipratropium (Duoneb) 3 ml Q6H RESP THERAPY INH Last administered on 04/25/19 14:16; Admin Dose 3 ML; Start 04/22/19 at 20:00 Linezolid 300 ml @ 300 mls/hr Q12 IVPB Last administered on 04/25/19 08:20; Admin Dose 300 MLS/HR; Start 04/22/19 at 21:00 Metronidazole 100 ml @ 100 mls/hr Q8 IVPB Last administered on 04/25/19 13:32; Admin Dose 100 MLS/HR; Start 04/23/19 at 12:00 Zinc Sulfate (Zinc Sulfate) 220 mg DAILY PO Last administered on 04/25/19 08:22; Admin Dose 220 MG; Start 04/23/19 at 12:30 Multivit/Ca Carb/ B Cmplx/FA/Prenat (Suzie-Paula) 1 tab DAILY PO Last administered on 04/25/19 08:22; Admin Dose 1 TAB; Start 04/23/19 at 12:30 Ascorbic Acid (Vitamin C) 500 mg DAILY PO Last administered on 04/25/19 08:22; Admin Dose 500 MG; Start 04/23/19 at 12:30 Aspirin (Aspirin) 81 mg DAILY PO Last administered on 04/25/19 08:22; Admin Dose 81 MG; Start 04/24/19 at 09:00 Phenylephrine HCl 80 mg/Dextrose 250 ml @ 18.75 mls/ hr TITRATE IV Last administered on 04/25/19 13:27; Admin Dose 18.75 MLS/HR; Start 04/25/19 at 11:00 JACOB GONZALEZ MD April 25, 2019 16:57
[2019-04-25] MEDS: ALBUMIN HUMAN 25% 100 ML IV PRN (17:57)
[2019-04-25] MEDS: HEPARIN 1000 UNITS/ML 10 ML INJ CATHETER SCH (19:52)
[2019-04-25] MEDS: ATORVASTATIN 20 MG TAB PO SCH (20:45)
[2019-04-25] MEDS: HEPARIN 5,000 UNIT/1 ML VIAL SC SCH (20:49)
[2019-04-25] MEDS ORDERED: LORAZEPAM 2 MG INJ IV PRN (23:30)
[2019-04-25] MEDS ORDERED: NORepinephrine 32 MG in DEXTROSE 5% 218 ML IV SCH (23:30)
[2019-04-26] VITALS (95 sets, daily range): BP systolic 44–122; BP diastolic 18–95; PULSE 63–109; RESP 5–33
[2019-04-26] MEDS: METOCLOPRAMIDE 10 MG INJ IV SCH ×4 (00:16→18:02)
[2019-04-26] MEDS: PHENYLephrine 80 MG in DEXTROSE 5% 242 ML IV SCH ×5 (00:53→19:35)
[2019-04-26] MEDS ORDERED: ALBUMIN HUMAN 25% 100 ML IV ONE ×2 (01:00→09:00)
[2019-04-26] MEDS ORDERED: NORepinephrine 32 MG in DEXTROSE 5% 218 ML IV SCH (01:00)
[2019-04-26] MEDS: ACCU-CHEK XX SCH (02:00)
[2019-04-26] MEDS: ALBUTEROL/IPRATROPIUM (NEB) 3 ML AMP INH SCH ×4 (02:11→20:45)
[2019-04-26] MEDS: PANTOPRAZOLE (EC) 40 MG TAB PO SCH ×2 (05:49→18:02)
[2019-04-26] MEDS: metroNIDAZOLE 500 MG/NS (PMX) 100 ML IVPB SCH ×3 (05:49→21:13)
[2019-04-26] MEDS: INSULIN ASPART [NOVOLOG] 3 ML PEN SC SCH ×4 (07:35→21:16)
--- NOTE | 2019-04-26 08:59 | PN ---
Date/Time of Note Date/Time of Note DATE: 04/26/19 TIME: 08:59 Assessment/Plan VTE Prophylaxis Risk score (from Ns)>0 risk: 12 SCD applied (from Ns): No SCD contraindicated: low risk/ambulating Pharmacological prophylaxis: NA/contraindicated Pharm contraindication: low risk/ambulating Lines/Catheters [facility] (from [facility] Permacath Urinary Cath still in place: No Assessment/Plan Assessment/Plan Assessment/Plan # Shock likely secondary to sepsis due to lower extremity wounds with multiple bugs E. coli Morganella VRE # Abdominal pain with some nausea. CT of the abdomen and pelvis showed severe left hydronephrosis, status post cholecystectomy. LFTs within normal limit except mildly elevated alkaline phosphatase. Lipase is 22. Likely secondary to constipation vs gastritis vs gastroparesis abdominal pain is still persistent. Versus choledocholithiasis s/p EGD with severe gastritis #. Severe left hydronephrosis secondary to UPJ junction, no urinary stone. probably chronic , no intervention per urology # Bilateral lower extremity ulcers with gangrene, followed by Dr. Schultz/ Ivonne # End-stage renal disease, on hemodialysis. #. Hypotension, on dialysis. could be secondary to infected ulcers, hold bp meds # Diabetes mellitus type II. #. Hypertension. # Peripheral vascular disease. #. History of gastritis. #. History of gastroparesis # History of atrial fibrillation. # anasarca #. Afib, controlled now, # AMS due to encephalopathy vs pain meds Assessment/Plan - Will get CT head, hold off narcotics - sp hd yesterday, next tmw -cw with gentamicin/Flagyl/Zyvox -Continue with phenylephrine, iv albumin -contact Isolation for VRE wounds -surgery on hold due to hypotension, unfortunately no CRRT here -strict BS control -c.e phos. binding agents -GI proph. Protonix -Give with tramadol for pain/morphine, hold off Dilaudid and gabapentin due to altered mental status -cw with aspirin/statin -GI/DVT prophylaxis Result Diagram: 04/26/19 2344 04/26/19 0500 Results 24hrs Laboratory Tests Test 04/25/19 12:07 04/25/19 17:36 04/25/19 20:44 04/26/19 02:00 Bedside Glucose 136 122 114 Blood Gas Blood arterial Specimen Source Arterial Blood 04/26/2019 3:25:4 Date Drawn 6 AM Arterial Blood pH 7.406 (Temp corrected) Arterial Blood 35.4 pCO2 (Temp correct) Arterial Blood 77.5 L pO2 (Temp corrected) Arterial Blood 21.7 L HCO3 Arterial Blood -2.4 Base Excess Arterial Blood 95.1 Oxygen Saturation Shun Test N/A Arterial Blood Right Brachial Gas Puncture Site Arterial 1.1 Blood Carboxyhemo globin Arterial Blood 0.2 Methemoglobin Blood Gas A-a O2 29.8 H Differential Oxyhemoglobin 93.9 Percent Blood Gas 37.0 Temperature Blood Gas ROOM AIR Modality FiO2 21.0 Blood Gas MR Notified Whom Blood Gas 04/26/2019 3:30:5 Notified Time 3 AM Test 04/26/19 04:15 04/26/19 05:00 White Blood Count 10.9 H Red Blood Count 3.93 L Hemoglobin 11.8 L Hematocrit 36.5 L Mean Corpuscular 92.9 Volume Mean Corpuscular 30.0 Hemoglobin Mean Corpuscular 32.3 Hemoglobin Concen t Red Cell 17.8 H Distribution Width Platelet Count 172 Mean Platelet 10.7 H Volume Immature 0.600 H Granulocytes % Neutrophils % 86.0 H Lymphocytes % 4.3 L Monocytes % 7.2 Eosinophils % 1.0 Basophils % 0.9 Nucleated Red 0.0 Blood Cells % Immature 0.060 H Granulocytes # Neutrophils # 9.4 H Lymphocytes # 0.5 L Monocytes # 0.8 Eosinophils # 0.1 Basophils # 0.1 Nucleated Red 0.0 Blood Cells # Phosphorus Level 3.4 Magnesium Level 2.3 Total Bilirubin 1.4 H Direct Bilirubin 0.30 H Indirect 1.1 Bilirubin Aspartate Amino 21 Transf (AST/SGOT) Alanine 14 Aminotransferase (ALT/SGPT) Alkaline 104 Phosphatase Total Protein 7.6 Albumin 3.9 Lipase 21 L Sodium Level 134 L Potassium Level 4.4 Chloride Level 95 L Carbon Dioxide 24 Level Anion Gap 15 H Blood Urea 25 H Nitrogen Creatinine 4.49 #H Est Glomerular 10 L Filtrat Rate mL/min Glucose Level 152 Calcium Level 9.1 Subjective 24 Hr Interval Summary Free Text/Dictation maxed on phenyl epinephrine pt confused at times pain in legs sbp 105 Exam/Review of Systems Exam Vitals Vital Signs Date Temp Pulse Resp B/P (MAP) Pulse Ox O2 O2 Flow FiO2 Time Delivery Rate 04/26/19 99 20 94 21 07:47 04/26/19 98/50 (66) 06:45 04/26/19 Room Air 06:01 04/26/19 97.8 04:00 04/22/19 2.0 18:07 Intake and Output 04/25/19 04/25/19 04/26/19 1515:00 23:00 07:00 IntakeIntake Total 1301.25 ml 811.25 ml 743.75 ml OutputOutput Total 1300 ml 0 ml BalanceBalance 1301.25 ml -488.75 ml 743.75 ml Exam rght chest permcath Constitutional: Little lethargic, anasarca Psych: no complaints Head: normocephalic Eyes: nl conjunctiva Neck: supple Respiratory: diminished breath sounds Cardiovascular: regular rate and rhythm Extremities: other (surgical dressing on feet) Generalized swelling more on the arms Bilateral lower extremity wounds black eschar Results Results 24hrs Laboratory Tests Test 04/25/19 12:07 04/25/19 17:36 04/25/19 20:44 04/26/19 02:00 Bedside Glucose 136 122 114 Blood Gas Blood arterial Specimen Source Arterial Blood 04/26/2019 3:25:4 Date Drawn 6 AM Arterial Blood pH 7.406 (Temp corrected) Arterial Blood 35.4 pCO2 (Temp correct) Arterial Blood 77.5 L pO2 (Temp corrected) Arterial Blood 21.7 L HCO3 Arterial Blood -2.4 Base Excess Arterial Blood 95.1 Oxygen Saturation Shun Test N/A Arterial Blood Right Brachial Gas Puncture Site Arterial 1.1 Blood Carboxyhemo globin Arterial Blood 0.2 Methemoglobin Blood Gas A-a O2 29.8 H Differential Oxyhemoglobin 93.9 Percent Blood Gas 37.0 Temperature Blood Gas ROOM AIR Modality FiO2 21.0 Blood Gas MR Notified Whom Blood Gas 04/26/2019 3:30:5 Notified Time 3 AM Test 04/26/19 04:15 04/26/19 05:00 White Blood Count 10.9 H Red Blood Count 3.93 L Hemoglobin 11.8 L Hematocrit 36.5 L Mean Corpuscular 92.9 Volume Mean Corpuscular 30.0 Hemoglobin Mean Corpuscular 32.3 Hemoglobin Concen t Red Cell 17.8 H Distribution Width Platelet Count 172 Mean Platelet 10.7 H Volume Immature 0.600 H Granulocytes % Neutrophils % 86.0 H Lymphocytes % 4.3 L Monocytes % 7.2 Eosinophils % 1.0 Basophils % 0.9 Nucleated Red 0.0 Blood Cells % Immature 0.060 H Granulocytes # Neutrophils # 9.4 H Lymphocytes # 0.5 L Monocytes # 0.8 Eosinophils # 0.1 Basophils # 0.1 Nucleated Red 0.0 Blood Cells # Phosphorus Level 3.4 Magnesium Level 2.3 Total Bilirubin 1.4 H Direct Bilirubin 0.30 H Indirect 1.1 Bilirubin Aspartate Amino 21 Transf (AST/SGOT) Alanine 14 Aminotransferase (ALT/SGPT) Alkaline 104 Phosphatase Total Protein 7.6 Albumin 3.9 Lipase 21 L Sodium Level 134 L Potassium Level 4.4 Chloride Level 95 L Carbon Dioxide 24 Level Anion Gap 15 H Blood Urea 25 H Nitrogen Creatinine 4.49 #H Est Glomerular 10 L Filtrat Rate mL/min Glucose Level 152 Calcium Level 9.1 Medications Medication Current Medications Acetaminophen (Tylenol Tab) 650 mg Q4H PRN PO FOR FEVER; Start 04/17/19 at 05:00 Albuterol (Proventil 0.083% (Neb)) 2.5 mg Q4H RESP THERAPY PRN NEB WHEEZING AND SOB; Start 04/17/19 at 05:00 Atorvastatin Calcium (Lipitor) 20 mg QHS PO Last administered on 04/25/19at 20:45; Admin Dose 20 MG; Start 04/17/19 at 21:00 Benzonatate (Tessalon) 100 mg Q6 PRN PO COUGH; Start 04/17/19 at 05:00 Bisacodyl (Dulcolax) 5 mg BID PO Last administered on 04/25/19at 20:46; Admin Dose 5 MG; Start 04/17/19 at 09:00 Folic Acid (Folic Acid) 1 mg DAILY PO Last administered on 04/25/19 08:22; Admin Dose 1 MG; Start 04/17/19 at 09:00 Ondansetron HCl (Zofran Tab) 4 mg Q6H PRN PO NAUSEA AND/OR VOMITING; Start 04/17/19 at 05:00 Polyethylene Glycol (Miralax) 17 gm DAILY PO Last administered on 04/25/19at 08:22; Admin Dose 17 GM; Start 04/17/19 at 09:00 Morphine Sulfate (morphine) 2 mg Q4H PRN IV SEVERE PAIN LEVEL 7-10 Last administered on 04/25/19at 04:35; Admin Dose 2 MG; Start 04/17/19 at 05:00 Diagnostic Test (Pha) (Accu-Chek) 1 ea 02 XX ; Start 04/18/19 at 02:00 Insulin Aspart (Novolog Insulin Pen) NOVOLOG *MILD* ALGORITHM WITH MEALS BEDTIME SC ; Start 04/17/19 at 08:00 Miscellaneous Information (Pending [facility] Order For Wound Care) This patient davis... PRN PRN XX WOUND CARE; Start 04/17/19 at 05:00 Miscellaneous Information 1 ea NOTE XX ; Start 04/17/19 at 05:30 Glucose (Glutose) 15 gm Q15M PRN PO DECREASED GLUCOSE; Start 04/17/19 at 05:30 Glucose (Glutose) 22.5 gm Q15M PRN PO DECREASED GLUCOSE; Start 04/17/19 at 05:30 Dextrose (D50w Syringe) 25 ml Q15M PRN IV DECREASED GLUCOSE; Start 04/17/19 at 05:30 Dextrose (D50w Syringe) 50 ml Q15M PRN IV DECREASED GLUCOSE; Start 04/17/19 at 05:30 Glucagon (Glucagen) 1 mg Q15M PRN IM DECREASED GLUCOSE; Start 04/17/19 at 05:30 Glucose (Glutose) 15 gm Q15M PRN BUCCAL DECREASED GLUCOSE; Start 04/17/19 at 05:30 Guaifenesin/ Codeine Phosphate (Robitussin Ac Liquid Cup) 5 ml TID PO Last administered on 04/25/19at 20:46; Admin Dose 5 ML; Start 04/17/19 at 09:00 Bisacodyl (Dulcolax Supp) 10 mg DAILY PRN [place] CONSTIPATION Last administered on 04/23/19at 16:16; Admin Dose 10 MG; Start 04/17/19 at 10:00 Lubiprostone (Amitiza) 24 mcg BID PO Last administered on 04/25/19at 20:45; Admin Dose 24 MCG; Start 04/17/19 at 12:00 Heparin Sodium (Porcine) (Heparin (1000 Units/ml)) 4,000 unit AFTER DIALYSIS CATHETER Last administered on 04/25/19at 19:52; Admin Dose 4,000 UNIT; Start at 12:00 Tramadol HCl (Ultram) 50 mg Q6H PRN PO MODERATE PAIN LEVEL 4-6 Last administered on 04/25/19 20:49; Admin Dose 50 MG; Start 04/18/19 at 11:00 Povidone Iodine (Povidone-Iodine) 1 applic DAILY TOP Last administered on 04/25/19 08:24; Admin Dose 1 APPLIC; Start 04/18/19 at 13:00 Pantoprazole (Protonix Tab) 40 mg BID@0600,1800 PO Last administered on 04/26/19 05:49; Admin Dose 40 MG; Start 04/18/19 at 18:00 Albumin Human 100 ml @ 100 mls/hr WITH DIALYSIS PRN IV SBP <90 DURING DIALYSIS Last administered on 04/25/19 17:57; Admin Dose 100 MLS/HR; Start 04/18/19 at 15:00 Sodium Hypochlorite (Dakins Diluted ()) 1 applic TID TP Last administered on 04/25/19 20:46; Admin Dose 1 APPLIC; Start 04/18/19 at 21:00 Zolpidem Tartrate (Ambien) 5 mg HS PRN PO INSOMNIA Last administered on 04/25/19 21:23; Admin Dose 5 MG; Start 04/19/19 at 03:00 Metoclopramide HCl (Reglan) 5 mg Q6 IV Last administered on 04/26/19 05:49; Admin Dose 5 MG; Start 04/19/19 at 18:00 Gentamicin Sulfate (Gentamicin Iv Per Pharmacy) GENTAMICIN PER PHARMACY NOTE XX ; Start 04/21/19 at 13:30 Gentamicin Sulfate 50 ml @ 100 mls/hr AFTER DIALYSIS IVPB Last administered on 04/25/19 23:33; Admin Dose 100 MLS/HR; Start 04/22/19 at 08:00 Albuterol/ Ipratropium (Duoneb) 3 ml Q6H RESP THERAPY INH Last administered on 04/26/19 07:47; Admin Dose 3 ML; Start 04/22/19 at 20:00 Linezolid 300 ml @ 300 mls/hr Q12 IVPB Last administered on 04/25/19 20:45; Admin Dose 300 MLS/HR; Start 04/22/19 at 21:00 Metronidazole 100 ml @ 100 mls/hr Q8 IVPB Last administered on 04/26/19 05:49; Admin Dose 100 MLS/HR; Start 04/23/19 at 12:00 Zinc Sulfate (Zinc Sulfate) 220 mg DAILY PO Last administered on 04/25/19 08:22; Admin Dose 220 MG; Start 04/23/19 at 12:30 Multivit/Ca Carb/ B Cmplx/FA/Prenat (Suzie-Paula) 1 tab DAILY PO Last administered on 04/25/19 08:22; Admin Dose 1 TAB; Start 04/23/19 at 12:30 Ascorbic Acid (Vitamin C) 500 mg DAILY PO Last administered on 04/25/19 08:22; Admin Dose 500 MG; Start 04/23/19 at 12:30 Aspirin (Aspirin) 81 mg DAILY PO Last administered on 04/25/19 08:22; Admin Dose 81 MG; Start 04/24/19 at 09:00 Phenylephrine HCl 80 mg/Dextrose 250 ml @ 18.75 mls/ hr TITRATE IV Last administered on 04/26/19 05:50; Admin Dose 56.25 MLS/HR; Start 04/25/19 at 11:00 Heparin Sodium (Porcine) (Heparin (5000 Units/1ml)) 5,000 unit BID SC Last administered on 04/25/19 20:49; Admin Dose 5,000 UNIT; Start 04/25/19 at 21:00 Norepinephrine 32 mg/Dextrose 250 ml @ 0.47 mls/hr TITRATE IV ; Start 04/26/19 at 01:00 JACOB GONZALEZ MD April 26, 2019 08:59
[2019-04-26] MEDS: LUBIPROSTONE 24 MCG CAP PO SCH ×3 (09:22→21:14)
[2019-04-26] MEDS: POLYETHYLENE GLYCOL 17 GM PACKET PO SCH (09:22)
[2019-04-26] MEDS: BISACODYL (EC) 5 MG TAB PO SCH ×3 (09:22→21:14)
[2019-04-26] MEDS: ASCORBIC ACID 500 MG TAB PO SCH (09:22)
[2019-04-26] MEDS: FOLIC ACID 1 MG TAB PO SCH (09:22)
[2019-04-26] MEDS: MULTIVIT/CA CARB/B CMPLX/FA TAB PO SCH (09:22)
[2019-04-26] MEDS: ASPIRIN 81 MG TAB PO SCH (09:22)
[2019-04-26] MEDS: ZINC SULFATE 220 MG CAP PO SCH (09:22)
[2019-04-26] MEDS: GUAIFENESIN/CODEINE 5ML CUP PO SCH ×3 (09:24→21:22)
[2019-04-26] MEDS: HEPARIN 5,000 UNIT/1 ML VIAL SC SCH ×2 (09:27→21:15)
[2019-04-26] MEDS: BALSAM PERU/CASTOR OIL 60 GM TUBE TOP SCH ×2 (09:35→21:00)
[2019-04-26] MEDS: DAKINS 0.0125%(1/40) 473 ML SOLUTION TP SCH ×3 (09:35→21:00)
[2019-04-26] MEDS: POVIDONE IODINE 10% 28.4 GM OINT TOP SCH (09:35)
[2019-04-26] MEDS: LINEZOLID 600 MG/300 ML (PMX) 300 ML IVPB SCH ×2 (10:42→21:13)
[2019-04-26] MEDS: traMADol 50 MG TAB PO PRN ×2 (10:51→17:55)
--- NOTE | 2019-04-26 12:17 | CONS ---
Assessment/Plan Assessment/Plan Hospital Course (Demo Recall) Patient is lethargic on high dose of Geoffrey-Synephrine drip she is in no distress, family at bedside, no fevers overnight. WBC 10.9 H&H 11.8 and 36.5 platelets 172 neutrophils 86 Microbiology: Wound culture grew E. coli, MRSA, VRE, Morganella morganii Antimicrobials: Gentamicin, Zyvox, Flagyl MRI of right ankle revealed suspicion for early osteomyelitis of the posterior calcaneus. MRI of left ankle revealed severe midfoot arthrosis with associated midfoot collapse with erosive changes at the base of the subluxed cuboid without increased signal to suggest acute osteomyelitis. Please see full report in the chart Indwelling: Right chest permacath, right femoral triple-lumen catheter. Allergy: Amoxicillin Physical examination: This is a wasted obese well-developed fragile elderly H ispanic woman who is awake in no distress. Head atraumatic normocephalic. Neck is supple. Chest rise symmetrical breath sounds diminished bases. Heart: S1- S2. Abdomen soft bowel sounds present. Extremities with bilateral lower extremities gangrene Assessment: 1. Severe sepsis with shock 2. Bilateral lower extremities gangrene/OM 3. End-stage renal disease 4. Peripheral arterial disease, status post right posterior tibial artery angioplasty 03/01/19 5. Diabetes 6. Failure to thrive 7. Afib s/p RVR Plan: The patient is doing poorly, we are going to add empiric antifungal coverage and meropenem and repeat cultures, patient is still unstable for surgery. Discussed with RN Consultation Date/Type/Reason Admit Date/Time April 17, 2019 at 00:03 Initial Consult Date 04/17/19 Type of Consult id Requesting Provider: ALONZO KNOWLES MD Date/Time of Note DATE: 04/26/19 TIME: 12:15 Exam/Review of Systems Exam Vitals Vital Signs Date Temp Pulse Resp B/P (MAP) Pulse Ox O2 O2 Flow FiO2 Time Delivery Rate 04/26/19 86 12 106/55 11:15 (72) 04/26/19 Room Air 11:00 04/26/19 98 09:45 04/26/19 97.5 08:00 04/26/19 21 07:47 04/22/19 2.0 18:07 Intake and Output 04/25/19 04/25/19 04/26/19 1515:00 23:00 07:00 IntakeIntake Total 1301.25 ml 811.25 ml 800.00 ml OutputOutput Total 1300 ml 0 ml BalanceBalance 1301.25 ml -488.75 ml 800.00 ml Results Result Diagram: 04/26/19 0415 04/26/19 0500 Results 24hrs Laboratory Tests Test 04/25/19 17:36 04/25/19 20:44 04/26/19 02:00 04/26/19 04:15 Bedside Glucose 122 114 Blood Gas Blood arterial Specimen Source Arterial Blood 04/26/2019 3:25:4 Date Drawn 6 AM Arterial Blood pH 7.406 (Temp corrected) Arterial Blood 35.4 pCO2 (Temp correct) Arterial Blood 77.5 L pO2 (Temp corrected) Arterial Blood 21.7 L HCO3 Arterial Blood -2.4 Base Excess Arterial Blood 95.1 Oxygen Saturation Shun Test N/A Arterial Blood Right Brachial Gas Puncture Site Arterial 1.1 Blood Carboxyhemo globin Arterial Blood 0.2 Methemoglobin Blood Gas A-a O2 29.8 H Differential Oxyhemoglobin 93.9 Percent Blood Gas 37.0 Temperature Blood Gas ROOM AIR Modality FiO2 21.0 Blood Gas MR Notified Whom Blood Gas 04/26/2019 3:30:5 Notified Time 3 AM White Blood Count 10.9 H Red Blood Count 3.93 L Hemoglobin 11.8 L Hematocrit 36.5 L Mean Corpuscular 92.9 Volume Mean Corpuscular 30.0 Hemoglobin Mean Corpuscular 32.3 Hemoglobin Concen t Red Cell 17.8 H Distribution Width Platelet Count 172 Mean Platelet 10.7 H Volume Immature 0.600 H Granulocytes % Neutrophils % 86.0 H Lymphocytes % 4.3 L Monocytes % 7.2 Eosinophils % 1.0 Basophils % 0.9 Nucleated Red 0.0 Blood Cells % Immature 0.060 H Granulocytes # Neutrophils # 9.4 H Lymphocytes # 0.5 L Monocytes # 0.8 Eosinophils # 0.1 Basophils # 0.1 Nucleated Red 0.0 Blood Cells # Phosphorus Level 3.4 Magnesium Level 2.3 Total Bilirubin 1.4 H Direct Bilirubin 0.30 H Indirect 1.1 Bilirubin Aspartate Amino 21 Transf (AST/SGOT) Alanine 14 Aminotransferase (ALT/SGPT) Alkaline 104 Phosphatase Total Protein 7.6 Albumin 3.9 Lipase 21 L Test 04/26/19 05:00 04/26/19 09:32 Sodium Level 134 L Potassium Level 4.4 Chloride Level 95 L Carbon Dioxide 24 Level Anion Gap 15 H Blood Urea 25 H Nitrogen Creatinine 4.49 #H Est Glomerular 10 L Filtrat Rate mL/min Glucose Level 152 Calcium Level 9.1 Bedside Glucose 147 Medications Medication Current Medications Acetaminophen (Tylenol Tab) 650 mg Q4H PRN PO FOR FEVER; Start 04/17/19 at 05:00 Albuterol (Proventil 0.083% (Neb)) 2.5 mg Q4H RESP THERAPY PRN NEB WHEEZING AND SOB; Start 04/17/19 at 05:00 Atorvastatin Calcium (Lipitor) 20 mg QHS PO Last administered on 04/25/19at 20:45; Admin Dose 20 MG; Start 04/17/19 at 21:00 Benzonatate (Tessalon) 100 mg Q6 PRN PO COUGH; Start 04/17/19 at 05:00 Bisacodyl (Dulcolax) 5 mg BID PO Last administered on 04/26/19at 09:22; Admin Dose 5 MG; Start 04/17/19 at 09:00 Folic Acid (Folic Acid) 1 mg DAILY PO Last administered on 04/26/19 09:22; Admin Dose 1 MG; Start 04/17/19 at 09:00 Ondansetron HCl (Zofran Tab) 4 mg Q6H PRN PO NAUSEA AND/OR VOMITING; Start 04/17/19 at 05:00 Polyethylene Glycol (Miralax) 17 gm DAILY PO Last administered on 04/26/19 09:22; Admin Dose 17 GM; Start 04/17/19 at 09:00 Morphine Sulfate (morphine) 2 mg Q4H PRN IV SEVERE PAIN LEVEL 7-10 Last administered on 04/25/19at 04:35; Admin Dose 2 MG; Start 04/17/19 at 05:00 Diagnostic Test (Pha) (Accu-Chek) 1 ea 02 XX ; Start 04/18/19 at 02:00 Insulin Aspart (Novolog Insulin Pen) NOVOLOG *MILD* ALGORITHM WITH MEALS B EDTIME SC ; Start 04/17/19 at 08:00 Miscellaneous Information (Pending [facility] Order For Wound Care) This patient davis... PRN PRN XX WOUND CARE; Start 04/17/19 at 05:00 Miscellaneous Information 1 ea NOTE XX ; Start 04/17/19 at 05:30 Glucose (Glutose) 15 gm Q15M PRN PO DECREASED GLUCOSE; Start 04/17/19 at 05:30 Glucose (Glutose) 22.5 gm Q15M PRN PO DECREASED GLUCOSE; Start 04/17/19 at 05:30 Dextrose (D50w Syringe) 25 ml Q15M PRN IV DECREASED GLUCOSE; Start 04/17/19 at 05:30 Dextrose (D50w Syringe) 50 ml Q15M PRN IV DECREASED GLUCOSE; Start 04/17/19 at 05:30 Glucagon (Glucagen) 1 mg Q15M PRN IM DECREASED GLUCOSE; Start 04/17/19 at 05:30 Glucose (Glutose) 15 gm Q15M PRN BUCCAL DECREASED GLUCOSE; Start 04/17/19 at 05:30 Guaifenesin/ Codeine Phosphate (Robitussin Ac Liquid Cup) 5 ml TID PO Last administered on 04/26/19 09:24; Admin Dose 5 ML; Start 04/17/19 at 09:00 Bisacodyl (Dulcolax Supp) [address] CONSTIPATION Last administered on 04/23/19 16:16; Admin Dose 10 MG; Start 04/17/19 at 10:00 Lubiprostone (Amitiza) 24 mcg BID PO Last administered on 04/26/19 09:22; Admi n Dose 24 MCG; Start 04/17/19 at 12:00 Heparin Sodium (Porcine) (Heparin (1000 Units/ml)) 4,000 unit AFTER DIALYSIS CATHETER Last administered on 04/25/19 19:52; Admin Dose 4,000 UNIT; Start 04/17/19 at 12:00 Tramadol HCl (Ultram) 50 mg Q6H PRN PO MODERATE PAIN LEVEL 4-6 Last administered on 04/26/19 10:51; Admin Dose 50 MG; Start 04/18/19 at 11:00 Povidone Iodine (Povidone-Iodine) 1 applic DAILY TOP Last administered on 04/26/19 09:35; Admin Dose 1 APPLIC; Start 04/18/19 at 13:00 Pantoprazole (Protonix Tab) 40 mg BID@0600,1800 PO Last administered on 04/26/19 05:49; Admin Dose 40 MG; Start 04/18/19 at 18:00 Albumin Human 100 ml @ 100 mls/hr WITH DIALYSIS PRN IV SBP <90 DURING DIALYSIS Last administered on 04/25/19 17:57; Admin Dose 100 MLS/HR; Start 04/18/19 at 15:00 Sodium Hypochlorite (Dakins Diluted ()) 1 applic TID TP Last administered on 04/26/19 09:35; Admin Dose 1 APPLIC; Start 04/18/19 at 21:00 Zolpidem Tartrate (Ambien) 5 mg HS PRN PO INSOMNIA Last administered on 04/25/19 21:23; Admin Dose 5 MG; Start 04/19/19 at 03:00 Metoclopramide HCl (Reglan) 5 mg Q6 IV Last administered on 04/26/19 12:03; Admin Dose 5 MG; Start 04/19/19 at 18:00 Gentamicin Sulfate (Gentamicin Iv Per Pharmacy) GENTAMICIN PER PHARMACY NOTE XX ; Start 04/21/19 at 13:30 Gentamicin Sulfate 50 ml @ 100 mls/hr AFTER DIALYSIS IVPB Last administered on 04/25/19 23:33; Admin Dose 100 MLS/HR; Start 04/22/19 at 08:00 Albuterol/ Ipratropium (Duoneb) 3 ml Q6H RESP THERAPY INH Last administered on 04/26/19 07:47; Admin Dose 3 ML; Start 04/22/19 at 20:00 Linezolid 300 ml @ 300 mls/hr Q12 IVPB Last administered on 04/26/19 10:42; Admin Dose 300 MLS/HR; Start 04/22/19 at 21:00 Metronidazole 100 ml @ 100 mls/hr Q8 IVPB Last administered on 04/26/19 05:49; Admin Dose 100 MLS/HR; Start 04/23/19 at 12:00 Zinc Sulfate (Zinc Sulfate) 220 mg DAILY PO Last administered on 04/26/19 09:22; Admin Dose 220 MG; Start 04/23/19 at 12:30 Multivit/Ca Carb/ B Cmplx/FA/Prenat (Suzie-Paula) 1 tab DAILY PO Last administered on 04/26/19 09:22; Admin Dose 1 TAB; Start 04/23/19 at 12:30 Ascorbic Acid (Vitamin C) 500 mg DAILY PO Last administered on 04/26/19 09:22; Admin Dose 500 MG; Start 04/23/19 at 12:30 Aspirin (Aspirin) 81 mg DAILY PO Last administered on 04/26/19 09:22; Admin Dose 81 MG; Start 04/24/19 at 09:00 Phenylephrine HCl 80 mg/Dextrose 250 ml @ 18.75 mls/ hr TITRATE IV Last administered on 04/26/19at 11:00; Admin Dose 56.25 MLS/HR; Start 04/25/19 at 11:00 Heparin Sodium (Porcine) (Heparin (5000 Units/1ml)) 5,000 unit BID SC Last administered on 04/26/19 09:27; Admin Dose 5,000 UNIT; Start 04/25/19 at 21:00 Norepinephrine 32 mg/Dextrose 250 ml @ 0.47 mls/hr TITRATE IV ; Start 04/26/19 at 01:00 Midodrine (Proamatine) 5 mg BID@09,17 PO ; Start 04/26/19 at 17:00 JOHANA KULKARNI NP April 26, 2019 12:17
[2019-04-26] MEDS: MEROPENEM 500MG/50 ML (PMX) 50 ML IVPB SCH ×2 (12:59→21:13)
[2019-04-26] MEDS ORDERED: CASPOFUNGIN 70 MG in SOD CHLORIDE 0.9% 250 ML IVPB ONE (14:00)
--- NOTE | 2019-04-26 16:29 | CONS ---
Assessment/Plan Assessment/Plan Hospital Course (Demo Recall) IMPRESSION: 1. Atrial fibrillation-mainly rate controlled s/p digoxin IVP and on amio 2. Hypotension-remains on pressors 3. Preoperative for lower extremity foot debridement.-Echo EF 60-65/no sig valve abnl/Neg trop x 2 4. End-stage renal disease, on hemodialysis. 5. Dyslipidemia. 6. Lower extremity nonhealing ulcerations. 7. Presumed peripheral arterial disease. 8. Coagulopathy-mild improvement 9. Anemia. 10. Thrombocytopenia-slowly improving. Recc: -IN ICU -serial ecg's -Continue statin -Contineu abx's and f/u cx data -additional dose of digoxin -Continue asa -local wond care -On increasing doses of pressors Consultation Date/Type/Reason Admit Date/Time April 17, 2019 at 00:03 Initial Consult Date 04/20/19 Type of Consult Cardiology Reason for Consultation Hypotension Requesting Provider: ALONZO KNOWLES MD Date/Time of Note DATE: 04/26/19 TIME: 16:26 Exam/Review of Systems Vital Signs Vitals Vital Signs Date Temp Pulse Resp B/P (MAP) Pulse Ox O2 O2 Flow FiO2 Time Delivery Rate 04/26/19 97.8 100 113/60 98 Room Air 16:00 (77) 04/26/19 17 15:45 04/26/19 21 13:21 04/22/19 2.0 18:07 Intake and Output 04/25/19 04/25/19 04/26/19 1414:59 22:59 06:59 IntakeIntake Total 1263.75 ml 800.00 ml 792.50 ml OutputOutput Total 1300 ml 0 ml BalanceBalance 1263.75 ml -500.00 ml 792.50 ml Exam Exam Review of Systems: CONSTITUTIONAL: No fevers, chills. PULMONARY: No sob CARDIOVASCULAR:hypotension GASTROINTESTINAL: No nausea/vomiting. GENITOURINARY: No hematuria/dysuria. MUSCULOSKELETAL: No myagias/arthalgias. PSYCHIATRIC: The patient denies depression. NEUROLOGIC: No weakness Constitutional: alert Psych: no complaints Head: normocephalic ENMT: mucosa pink and moist Neck: supple, jvd (9 c m water) Respiratory: diminished breath sounds (at bases/B) Cardiovascular: regular rate and rhythm Gastrointestinal: soft, non-tender Musculoskeletal: muscle tone (normal) Extremities: edema (none) Neurological: other (No focal defiicts) Labs Result Diagram: 04/26/19 0415 04/26/19 0500 Results 24hrs Laboratory Tests Test 04/25/19 17:36 04/25/19 20:44 04/26/19 02:00 04/26/19 04:15 Bedside Glucose 122 114 Blood Gas Blood arterial Specimen Source Arterial Blood 04/26/2019 3:25:4 Date Drawn 6 AM Arterial Blood pH 7.406 (Temp corrected) Arterial Blood 35.4 pCO2 (Temp correct) Arterial Blood 77.5 L pO2 (Temp corrected) Arterial Blood 21.7 L HCO3 Arterial Blood -2.4 Base Excess Arterial Blood 95.1 Oxygen Saturation Shun Test N/A Arterial Blood Right Brachial Gas Puncture Site Arterial 1.1 Blood Carboxyhemo globin Arterial Blood 0.2 Methemoglobin Blood Gas A-a O2 29.8 H Differential Oxyhemoglobin 93.9 Percent Blood Gas 37.0 Temperature Blood Gas ROOM AIR Modality FiO2 21.0 Blood Gas MR Notified Whom Blood Gas 04/26/2019 3:30:5 Notified Time 3 AM White Blood Count 10.9 H Red Blood Count 3.93 L Hemoglobin 11.8 L Hematocrit 36.5 L Mean Corpuscular 92.9 Volume Mean Corpuscular 30.0 Hemoglobin Mean Corpuscular 32.3 Hemoglobin Concen t Red Cell 17.8 H Distribution Width Platelet Count 172 Mean Platelet 10.7 H Volume Immature 0.600 H Granulocytes % Neutrophils % 86.0 H Lymphocytes % 4.3 L Monocytes % 7.2 Eosinophils % 1.0 Basophils % 0.9 Nucleated Red 0.0 Blood Cells % Immature 0.060 H Granulocytes # Neutrophils # 9.4 H Lymphocytes # 0.5 L Monocytes # 0.8 Eosinophils # 0.1 Basophils # 0.1 Nucleated Red 0.0 Blood Cells # Phosphorus Level 3.4 Magnesium Level 2.3 Total Bilirubin 1.4 H Direct Bilirubin 0.30 H Indirect 1.1 Bilirubin Aspartate Amino 21 Transf (AST/SGOT) Alanine 14 Aminotransferase (ALT/SGPT) Alkaline 104 Phosphatase Total Protein 7.6 Albumin 3.9 Lipase 21 L Test 04/26/19 05:00 04/26/19 09:32 04/26/19 12:05 Sodium Level 134 L Potassium Level 4.4 Chloride Level 95 L Carbon Dioxide 24 Level Anion Gap 15 H Blood Urea 25 H Nitrogen Creatinine 4.49 #H Est Glomerular 10 L Filtrat Rate mL/min Glucose Level 152 Calcium Level 9.1 Bedside Glucose 147 177 Medications Medications Current Medications Acetaminophen (Tylenol Tab) 650 mg Q4H PRN PO FOR FEVER; Start 04/17/19 at 05:00 Albuterol (Proventil 0.083% (Neb)) 2.5 mg Q4H RESP THERAPY PRN NEB WHEEZING AND SOB; Start 04/17/19 at 05:00 Atorvastatin Calcium (Lipitor) 20 mg QHS PO Last administered on 04/25/19 20:45; Admin Dose 20 MG; Start 04/17/19 at 21:00 Benzonatate (Tessalon) 100 mg Q6 PRN PO COUGH; Start 04/17/19 at 05:00 Bisacodyl (Dulcolax) 5 mg BID PO Last administered on 04/26/19 09:22; Admin Dose 5 MG; Start 04/17/19 at 09:00 Folic Acid (Folic Acid) 1 mg DAILY PO Last administered on 04/26/19 09:22; Admin Dose 1 MG; Start 04/17/19 at 09:00 Ondansetron HCl (Zofran Tab) 4 mg Q6H PRN PO NAUSEA AND/OR VOMITING; Start 04/17/19 at 05:00 Polyethylene Glycol (Miralax) 17 gm DAILY PO Last administered on 04/26/19 09:22; Admin Dose 17 GM; Start 04/17/19 at 09:00 Morphine Sulfate (morphine) 2 mg Q4H PRN IV SEVERE PAIN LEVEL 7-10 Last administered on 04/25/19 04:35; Admin Dose 2 MG; Start 04/17/19 at 05:00 Diagnostic Test (Pha) (Accu-Chek) 1 ea 02 XX ; Start 04/18/19 at 02:00 Insulin Aspart (Novolog Insulin Pen) NOVOLOG *MILD* ALGORITHM WITH MEALS BEDTIME SC Last administered on 04/26/19 12:22; Admin Dose 1 UNIT; Start 04/17/19 at 08:00 [facility] This patient davis... PRN PRN XX WOUND CARE; Start 04/17/19 at 05:00 Miscellaneous Information 1 ea NOTE XX ; Start 04/17/19 at 05:30 Glucose (Glutose) 15 gm Q15M PRN PO DECREASED GLUCOSE; Start 04/17/19 at 05:30 Glucose (Glutose) 22.5 gm Q15M PRN PO DECREASED GLUCOSE; Start 04/17/19 at 05:30 Dextrose (D50w Syringe) 25 ml Q15M PRN IV DECREASED GLUCOSE; Start 04/17/19 at 05:30 Dextrose (D50w Syringe) 50 ml Q15M PRN IV DECREASED GLUCOSE; Start 04/17/19 at 05:30 Glucagon (Glucagen) 1 mg Q15M PRN IM DECREASED GLUCOSE; Start 04/17/19 at 05:30 Glucose (Glutose) 15 gm Q15M PRN BUCCAL DECREASED GLUCOSE; Start 04/17/19 at 05:30 Guaifenesin/ Codeine Phosphate (Robitussin Ac Liquid Cup) 5 ml TID PO Last administered on 04/26/19 12:20; Admin Dose 5 ML; Start 04/17/19 at 09:00 Bisacodyl (Dulcolax Supp) 10 mg DAILY PRN [place] CONSTIPATION Last administered on 04/23/19 16:16; Admin Dose 10 MG; Start 04/17/19 at 10:00 Lubiprostone (Amitiza) 24 mcg BID PO Last administered on 04/26/19 09:22; Admin Dose 24 MCG; Start 04/17/19 at 12:00 Heparin Sodium (Porcine) (Heparin (1000 Units/ml)) 4,000 unit AFTER DIALYSIS CATHETER Last administered on 04/25/19 19:52; Admin Dose 4,000 UNIT; Start 04/17/19 at 12:00 Tramadol HCl (Ultram) 50 mg Q6H PRN PO MODERATE PAIN LEVEL 4-6 Last administered on 04/26/19 10:51; Admin Dose 50 MG; Start 04/18/19 at 11:00 Povidone Iodine (Povidone-Iodine) 1 applic DAILY TOP Last administered on 09:35; Admin Dose 1 APPLIC; Start 04/18/19 at 13:00 Pantoprazole (Protonix Tab) 40 mg BID@0600,1800 PO Last administered on 04/26/19 05:49; Admin Dose 40 MG; Start 04/18/19 at 18:00 Albumin Human 100 ml @ 100 mls/hr WITH DIALYSIS PRN IV SBP <90 DURING DIALYSIS Last administered on 04/25/19 17:57; Admin Dose 100 MLS/HR; Start 04/18/19 at 15:00 Sodium Hypochlorite (Dakins Diluted ()) 1 applic TID TP Last administered on 04/26/19 13:00; Admin Dose 1 APPLIC; Start 04/18/19 at 21:00 Zolpidem Tartrate (Ambien) 5 mg HS PRN PO INSOMNIA Last administered on 04/25/19 21:23; Admin Dose 5 MG; Start 04/19/19 at 03:00 Metoclopramide HCl (Reglan) 5 mg Q6 IV Last administered on 04/26/19 12:03; Admin Dose 5 MG; Start 04/19/19 at 18:00 Gentamicin Sulfate (Gentamicin Iv Per Pharmacy) GENTAMICIN PER PHARMACY NOTE XX ; Start 04/21/19 at 13:30 Gentamicin Sulfate 50 ml @ 100 mls/hr AFTER DIALYSIS IVPB Last administered on 04/25/19 23:33; Admin Dose 100 MLS/HR; Start 04/22/19 at 08:00 Albuterol/ Ipratropium (Duoneb) 3 ml Q6H RESP THERAPY INH Last administered on 04/26/19 13:21; Admin Dose 3 ML; Start 04/22/19 at 20:00 Linezolid 300 ml @ 300 mls/hr Q12 IVPB Last administered on 04/26/19 10:42; Admin Dose 300 MLS/HR; Start 04/22/19 at 21:00 Metronidazole 100 ml @ 100 mls/hr Q8 IVPB Last administered on 04/26/19 15:43; Admin Dose 100 MLS/HR; Start 04/23/19 at 12:00 Zinc Sulfate (Zinc Sulfate) 220 mg DAILY PO Last administered on 04/26/19 09:22; Admin Dose 220 MG; Start 04/23/19 at 12:30 Multivit/Ca Carb/ B Cmplx/FA/Prenat (Suzie-Paula) 1 tab DAILY PO Last adminis tered on 04/26/19 09:22; Admin Dose 1 TAB; Start 04/23/19 at 12:30 Ascorbic Acid (Vitamin C) 500 mg DAILY PO Last administered on 04/26/19 09:22; Admin Dose 500 MG; Start 04/23/19 at 12:30 Aspirin (Aspirin) 81 mg DAILY PO Last administered on 04/26/19 09:22; Admin Dose 81 MG; Start 04/24/19 at 09:00 Phenylephrine HCl 80 mg/Dextrose 250 ml @ 18.75 mls/ hr TITRATE IV Last administered on 04/26/19at 15:05; Admin Dose 56.25 MLS/HR; Start 04/25/19 at 11:00 Heparin Sodium (Porcine) (Heparin (5000 Units/1ml)) 5,000 unit BID SC Last administered on 04/26/19 09:27; Admin Dose 5,000 UNIT; Start 04/25/19 at 21:00 Norepinephrine 32 mg/Dextrose 250 ml @ 0.47 mls/hr TITRATE IV Last administered on 04/26/19at 12:17; Admin Dose 0.47 MLS/HR; Start 04/26/19 at 01:00 Midodrine (Proamatine) 5 mg BID@09,17 PO ; Start 04/26/19 at 17:00 Caspofungin 50 mg/ Sodium Chloride 250 ml @ 250 mls/hr Q24H IVPB ; Start 04/27/19 at 14:00 Meropenem/Sodium Chloride 50 ml @ 100 mls/hr Q12 IVPB Last administered on 04/26/19at 12:59; Admin Dose 100 MLS/HR; Start 04/26/19 at 12:30 Lidocaine (Xylocaine 1% (Mpf)) 30 ml ONCE PRN INJ pain; Start 04/26/19 at 16:30 LOUIS COLLIER April 26, 2019 16:29
[2019-04-26] MEDS ORDERED: LIDOCAINE 1% (MPF) 30 ML INJ INJ PRN (16:30)
--- NOTE | 2019-04-26 17:04 | CONS ---
Assessment/Plan Assessment/Plan Assessment/Plan (Daily) Assessment/Plan Hospital Course (Demo Recall) 63 yo female presented with abdominal pain 1. Abdominal pain secondary to gastritis and mild gastroparesis -continues to have epigastric and lower abdominal pain, no diarrhea, bm 04/24 2. End-stage renal disease on dialysis. 3. Peripheral vascular disease. 4. atrial fibrillation controlled with digoxin and amiodarone 5. Status post cholecystectomy. 6. Diabetes. 7. Hypertension. 8. Depression. 9. Lower extremity wound. -debridement on hold until pt is off pressors and stable 10. S/P EGD 11. Mild gastroparesis 12. Severe gastritis 13. Secondary esophageal varices with no bleeding noted 14. 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 Patient is off all pressor support. Surgery for the lower extremity has been deferred Consultation Date/Type/Reason Admit Date/Time April 17, 2019 at 00:03 Initial Consult Date 04/18/19 Requesting Provider: ALONZO KNOWLES MD Date/Time of Note DATE: 04/26/19 TIME: 17:03 24 HR Interval Summary Free Text/Dictation No epigastric pain no nausea no vomiting. Constitutional: improved Exam/Review of Systems Exam Vitals Vital Signs Date Temp Pulse Resp B/P (MAP) Pulse Ox O2 O2 Flow FiO2 Time Delivery Rate 04/26/19 97.8 100 113/60 98 Room Air 16:00 (77) 04/26/19 17 15:45 04/26/19 21 13:21 04/22/19 2.0 18:07 Intake and Output 04/25/19 04/25/19 04/26/19 1515:00 23:00 07:00 IntakeIntake Total 1301.25 ml 811.25 ml 800.00 ml OutputOutput Total 1300 ml 0 ml BalanceBalance 1301.25 ml -488.75 ml 800.00 ml Constitutional: alert, oriented, well developed Psych: no complaints, nl mood/affect Head: normocephalic, atraumatic Eyes: nl conjunctiva, EOMI, nl lids, nl sclera, PERRL ENMT: nl external ears & nose, nl lips & teeth, nl nasal mucosa & septum Neck: supple, non-tender Respiratory: clear to auscultation, normal air movement Cardiovascular: regular rate and rhythm, nl pulses Gastrointestinal: soft, nl liver, spleen, non-tender Musculoskeletal: nl extremities to inspection, nl gait and stance Extremities: normal pulses Neurological: LAB CLERK II-XII intact, nl mental status, nl speech, nl strength Skin: nl turgor; No rash or lesions Lymph: nl lymph nodes Results Result Diagram: 04/26/19 0415 04/26/19 0500 Results 24hrs Laboratory Tests Test 04/25/19 17:36 04/25/19 20:44 04/26/19 02:00 04/26/19 04:15 Bedside Glucose 122 114 Blood Gas Blood arterial Specimen Source Arterial Blood 04/26/2019 3:25:4 Date Drawn 6 AM Arterial Blood pH 7.406 (Temp corrected) Arterial Blood 35.4 pCO2 (Temp correct) Arterial Blood 77.5 L pO2 (Temp corrected) Arterial Blood 21.7 L HCO3 Arterial Blood -2.4 Base Excess Arterial Blood 95.1 Oxygen Saturation Shun Test N/A Arterial Blood Right Brachial Gas Puncture Site Arterial 1.1 Blood Carboxyhemo globin Arterial Blood 0.2 Methemoglobin Blood Gas A-a O2 29.8 H Differential Oxyhemoglobin 93.9 Percent Blood Gas 37.0 Temperature Blood Gas ROOM AIR Modality FiO2 21.0 Blood Gas MR Notified Whom Blood Gas 04/26/2019 3:30:5 Notified Time 3 AM White Blood Count 10.9 H Red Blood Count 3.93 L Hemoglobin 11.8 L Hematocrit 36.5 L Mean Corpuscular 92.9 Volume Mean Corpuscular 30.0 Hemoglobin Mean Corpuscular 32.3 Hemoglobin Concen t Red Cell 17.8 H Distribution Width Platelet Count 172 Mean Platelet 10.7 H Volume Immature 0.600 H Granulocytes % Neutrophils % 86.0 H Lymphocytes % 4.3 L Monocytes % 7.2 Eosinophils % 1.0 Basophils % 0.9 Nucleated Red 0.0 Blood Cells % Immature 0.060 H Granulocytes # Neutrophils # 9.4 H Lymphocytes # 0.5 L Monocytes # 0.8 Eosinophils # 0.1 Basophils # 0.1 Nucleated Red 0.0 Blood Cells # Phosphorus Level 3.4 Magnesium Level 2.3 Total Bilirubin 1.4 H Direct Bilirubin 0.30 H Indirect 1.1 Bilirubin Aspartate Amino 21 Transf (AST/SGOT) Alanine 14 Aminotransferase (ALT/SGPT) Alkaline 104 Phosphatase Total Protein 7.6 Albumin 3.9 Lipase 21 L Test 04/26/19 05:00 04/26/19 09:32 04/26/19 12:05 Sodium Level 134 L Potassium Level 4.4 Chloride Level 95 L Carbon Dioxide 24 Level Anion Gap 15 H Blood Urea 25 H Nitrogen Creatinine 4.49 #H Est Glomerular 10 L Filtrat Rate mL/min Glucose Level 152 Calcium Level 9.1 Bedside Glucose 147 177 Medications Medication Current Medications Acetaminophen (Tylenol Tab) 650 mg Q4H PRN PO FOR FEVER; Start 04/17/19 at 05:00 Albuterol (Proventil 0.083% (Neb)) 2.5 mg Q4H RESP THERAPY PRN NEB WHEEZING AND SOB; Start 04/17/19 at 05:00 Atorvastatin Calcium (Lipitor) 20 mg QHS PO Last administered on 04/25/19at 20:45; Admin Dose 20 MG; Start 04/17/19 at 21:00 Benzonatate (Tessalon) 100 mg Q6 PRN PO COUGH; Start 04/17/19 at 05:00 Bisacodyl (Dulcolax) 5 mg BID PO Last administered on 04/26/19 09:22; Admin Dose 5 MG; Start 04/17/19 at 09:00 Folic Acid (Folic Acid) 1 mg DAILY PO Last administered on 04/26/19 09:22; Admin Dose 1 MG; Start 04/17/19 at 09:00 Ondansetron HCl (Zofran Tab) 4 mg Q6H PRN PO NAUSEA AND/OR VOMITING; Start 04/17/19 at 05:00 Polyethylene Glycol (Miralax) 17 gm DAILY PO Last administered on 04/26/19 09:22; Admin Dose 17 GM; Start 04/17/19 at 09:00 Morphine Sulfate (morphine) 2 mg Q4H PRN IV SEVERE PAIN LEVEL 7-10 Last administered on 04/25/19 04:35; Admin Dose 2 MG; Start 04/17/19 at 05:00 Diagnostic Test (Pha) (Accu-Chek) 1 ea 02 XX ; Start 04/18/19 at 02:00 Insulin Aspart (Novolog Insulin Pen) NOVOLOG *MILD* ALGORITHM WITH MEALS BEDTIME SC Last administered on 04/26/19 12:22; Admin Dose 1 UNIT; Start 04/17/19 at 08:00 Miscellaneous Information (Pending Santyl Order For Wound Care) This patient davis... PRN PRN XX WOUND CARE; Start 04/17/19 at 05:00 Miscellaneous Information 1 ea NOTE XX ; Start 04/17/19 at 05:30 Glucose (Glutose) 15 gm Q15M PRN PO DECREASED GLUCOSE; Start 04/17/19 at 05:30 Glucose (Glutose) 22.5 gm Q15M PRN PO DECREASED GLUCOSE; Start 04/17/19 at 05:30 Dextrose (D50w Syringe) 25 ml Q15M PRN IV DECREASED GLUCOSE; Start 04/17/19 at 05:30 Dextrose (D50w Syringe) 50 ml Q15M PRN IV DECREASED GLUCOSE; Start 04/17/19 at 05:30 Glucagon (Glucagen) 1 mg Q15M PRN IM DECREASED GLUCOSE; Start 04/17/19 at 05:30 Glucose (Glutose) 15 gm Q15M PRN BUCCAL DECREASED GLUCOSE; Start 04/17/19 at 05:30 Guaifenesin/ Codeine Phosphate (Robitussin Ac Liquid Cup) 5 ml TID PO Last administered on 04/26/19 12:20; Admin Dose 5 ML; Start 04/17/19 at 09:00 Bisacodyl (Dulcolax Supp) 10 mg DAILY PRN [place] CONSTIPATION Last administered on 04/23/19 16:16; Admin Dose 10 MG; Start 04/17/19 at 10:00 Lubiprostone (Amitiza) 24 mcg BID PO Last administered on 04/26/19 09:22; Admin Dose 24 MCG; Start 04/17/19 at 12:00 Heparin Sodium (Porcine) (Heparin (1000 Units/ml)) 4,000 unit AFTER DIALYSIS CATHETER Last administered on 04/25/19 19:52; Admin Dose 4,000 UNIT; Start 04/17/19 at 12:00 Tramadol HCl (Ultram) 50 mg Q6H PRN PO MODERATE PAIN LEVEL 4-6 Last administered on 04/26/19 10:51; Admin Dose 50 MG; Start 04/18/19 at 11:00 Povidone Iodine (Povidone-Iodine) 1 applic DAILY TOP Last administered on 04/26/19 09:35; Admin Dose 1 APPLIC; Start 04/18/19 at 13:00 Pantoprazole (Protonix Tab) 40 mg BID@0600,1800 PO Last administered on 04/26 05:49; Admin Dose 40 MG; Start 04/18/19 at 18:00 Albumin Human 100 ml @ 100 mls/hr WITH DIALYSIS PRN IV SBP <90 DURING DIALYSIS Last administered on 04/25/19 17:57; Admin Dose 100 MLS/HR; Start 04/18/19 at 15:00 Sodium Hypochlorite (Dakins Diluted ()) 1 applic TID TP Last administered on 04/26/19 13:00; Admin Dose 1 APPLIC; Start 04/18/19 at 21:00 Zolpidem Tartrate (Ambien) 5 mg HS PRN PO INSOMNIA Last administered on 04/25/19 21:23; Admin Dose 5 MG; Start 04/19/19 at 03:00 Metoclopramide HCl (Reglan) 5 mg Q6 IV Last administered on 04/26/19 12:03; Admin Dose 5 MG; Start 04/19/19 at 18:00 Gentamicin Sulfate (Gentamicin Iv Per Pharmacy) GENTAMICIN PER PHARMACY NOTE XX ; Start 04/21/19 at 13:30 Gentamicin Sulfate 50 ml @ 100 mls/hr AFTER DIALYSIS IVPB Last administered on 04/25/19 23:33; Admin Dose 100 MLS/HR; Start 04/22/19 at 08:00 Albuterol/ Ipratropium (Duoneb) 3 ml Q6H RESP THERAPY INH Last administered on 04/26/19 13:21; Admin Dose 3 ML; Start 04/22/19 at 20:00 Linezolid 300 ml @ 300 mls/hr Q12 IVPB Last administered on 04/26/19 10:42; Admin Dose 300 MLS/HR; Start 04/22/19 at 21:00 Metronidazole 100 ml @ 100 mls/hr Q8 IVPB Last administered on 04/26/19 15:43; Admin Dose 100 MLS/HR; Start 04/23/19 at 12:00 Zinc Sulfate (Zinc Sulfate) 220 mg DAILY PO Last administered on 04/26/19 09:22; Admin Dose 220 MG; Start 04/23/19 at 12:30 Multivit/Ca Carb/ B Cmplx/FA/Prenat (Suzie-Paula) 1 tab DAILY PO Last administered on 04/26/19 09:22; Admin Dose 1 TAB; Start 04/23/19 at 12:30 Ascorbic Acid (Vitamin C) 500 mg DAILY PO Last administered on 04/26/19 09:22; Admin Dose 500 MG; Start 04/23/19 at 12:30 Aspirin (Aspirin) 81 mg DAILY PO Last administered on 04/26/19 09:22; Admin Dose 81 MG; Start 04/24/19 at 09:00 Phenylephrine HCl 80 mg/Dextrose 250 ml @ 18.75 mls/ hr TITRATE IV Last administered on 04/26/19 15:05; Admin Dose 56.25 MLS/HR; Start 04/25/19 at 11:00 Heparin Sodium (Porcine) (Heparin (5000 Units/1ml)) 5,000 unit BID SC Last administered on 04/26/19 09:27; Admin Dose 5,000 UNIT; Start 04/25/19 at 21:00 Norepinephrine 32 mg/Dextrose 250 ml @ 0.47 mls/hr TITRATE IV Last administered on 04/26/19 12:17; Admin Dose 0.47 MLS/HR; Start 04/26/19 at 01:00 Midodrine (Proamatine) 5 mg BID@09,17 PO ; Start 04/26/19 at 17:00 Caspofungin 50 mg/ Sodium Chloride 250 ml @ 250 mls/hr Q24H IVPB ; Start 04/27/19 at 14:00 Meropenem/Sodium Chloride 50 ml @ 100 mls/hr Q12 IVPB Last administered on 04/26/19at 12:59; Admin Dose 100 MLS/HR; Start 04/26/19 at 12:30 Lidocaine (Xylocaine 1% (Mpf)) 30 ml ONCE PRN INJ pain; Start 04/26/19 at 16:30 IVANA MULTANI MD April 26, 2019 17:04
--- NOTE | 2019-04-26 17:18 | CONS ---
Assessment/Plan Assessment/Plan Assessment/Plan (Daily) Bilateral foot gangrene bilateral foot diabetic ulcers Bilateral foot osteomyelitis PAD DM2 with peripheral neuropathy Charcot neuroarthropathy CAD ESRD on HD Hx of a-fib Plan Due to concerns with hypotension and patient not medically stable to undergo anesthesia bedside debridement was deemed necessary at this time. Consent was obtained from the son and performed bedside excisional debridement of bilateral feet of skin/subQ/muscle/fascia using a pickup/scissors and scalpel blade. Gangrenous, necrotic, fibrotic tissue along with 5-6mL of purulent drainage was expelled. Majority of the purulence was seen at the left plantar forefoot region. 85cm2 of area was debrided in total of bilateral wound sites. Wound cultures were obtained from the bilateral wound sites. Surgical, silver alginate, and betadine 4x4 gauze kerlix and kandy wraps were used for dressings. Hemostasis was achieved using compression and elevation. Once medically stable patient would like benefit from further OR debridement and likely bone resection. Continue with abx therapy as recommended. Patient will need daily dressing changes. Patient was previously optimized from vascular standpoint with Dr. Lemus on 03/31/19 with patent anterior tibial arteries, and right posterior tibial artery angioplasty. Continue with IV abx per recommendations. X-rays and MRI reviewed. Remain non weight bearing to bilateral feet. Previous wound cultures showing MRSA, e.coli, morganella, and VRE. Consultation Date/Type/Reason Admit Date/Time April 17, 2019 at 00:03 Initial Consult Date 04/20/19 Requesting Provider: ALONZO KNOWLES MD Date/Time of Note DATE: 04/26/19 TIME: 17:17 24 HR Interval Summary Free Text/Dictation No acute events overnight. Patient appears confused. Exam/Review of Systems Exam Vitals Vital Signs Date Temp Pulse Resp B/P (MAP) Pulse Ox O2 O2 Flow FiO2 Time Delivery Rate 04/26/19 97.8 100 113/60 98 Room Air 16:00 (77) 04/26/19 17 15:45 04/26/19 21 13:21 04/22/19 2.0 18:07 Intake and Output 04/25/19 04/25/19 04/26/19 1515:00 23:00 07:00 IntakeIntake Total 1301.25 ml 811.25 ml 800.00 ml OutputOutput Total 1300 ml 0 ml BalanceBalance 1301.25 ml -488.75 ml 800.00 ml Exam DP pulses and PT pulses weakly palpable Absent protective sensations Bilateral gangrenous heel ulcers measuring 5 x 7cm on the left and 5 x 6cm to the right with indeterminate depth. The ulcers feel boggy and mild seropurulent drainage can be appreciated to the periphery of the wound bed Left foot digits 3-5 with gangrene and plantar forefoot gangrene extending from the aforementioned digits Left plantar forefoot gangrenous ulcer measuring 4 x 5cm indeterminate depth, there is fluctuance appreciated to the site. Bilateral midfoot with hyperkeratotic lesion and necrotic skin changes. Right foot with hallux amputation noted Mild pain on palpation to gangrene sites. Results Result Diagram: 04/26/19 0415 04/26/19 0500 Results 24hrs Laboratory Tests Test 04/25/19 17:36 04/25/19 20:44 04/26/19 02:00 04/26/19 04:15 Bedside Glucose 122 114 Blood Gas Blood arterial Specimen Source Arterial Blood 04/26/2019 3:25:4 Date Drawn 6 AM Arterial Blood pH 7.406 (Temp corrected) Arterial Blood 35.4 pCO2 (Temp correct) Arterial Blood 77.5 L pO2 (Temp corrected) Arterial Blood 21.7 L HCO3 Arterial Blood -2.4 Base Excess Arterial Blood 95.1 Oxygen Saturation Shun Test N/A Arterial Blood Right Brachial Gas Puncture Site Arterial 1.1 Blood Carboxyhemo globin Arterial Blood 0.2 Methemoglobin Blood Gas A-a O2 29.8 H Differential Oxyhemoglobin 93.9 Percent Blood Gas 37.0 Temperature Blood Gas ROOM AIR Modality FiO2 21.0 Blood Gas MR Notified Whom Blood Gas 04/26/2019 3:30:5 Notified Time 3 AM White Blood Count 10.9 H Red Blood Count 3.93 L Hemoglobin 11.8 L Hematocrit 36.5 L Mean Corpuscular 92.9 Volume Mean Corpuscular 30.0 Hemoglobin Mean Corpuscular 32.3 Hemoglobin Concen t Red Cell 17.8 H Distribution Width Platelet Count 172 Mean Platelet 10.7 H Volume Immature 0.600 H Granulocytes % Neutrophils % 86.0 H Lymphocytes % 4.3 L Monocytes % 7.2 Eosinophils % 1.0 Basophils % 0.9 Nucleated Red 0.0 Blood Cells % Immature 0.060 H Granulocytes # Neutrophils # 9.4 H Lymphocytes # 0.5 L Monocytes # 0.8 Eosinophils # 0.1 Basophils # 0.1 Nucleated Red 0.0 Blood Cells # Phosphorus Level 3.4 Magnesium Level 2.3 Total Bilirubin 1.4 H Direct Bilirubin 0.30 H Indirect 1.1 Bilirubin Aspartate Amino 21 Transf (AST/SGOT) Alanine 14 Aminotransferase (ALT/SGPT) Alkaline 104 Phosphatase Total Protein 7.6 Albumin 3.9 Lipase 21 L Test 04/26/19 05:00 04/26/19 09:32 04/26/19 12:05 Sodium Level 134 L Potassium Level 4.4 Chloride Level 95 L Carbon Dioxide 24 Level Anion Gap 15 H Blood Urea 25 H Nitrogen Creatinine 4.49 #H Est Glomerular 10 L Filtrat Rate mL/min Glucose Level 152 Calcium Level 9.1 Bedside Glucose 147 177 Medications Medication Current Medications Acetaminophen (Tylenol Tab) 650 mg Q4H PRN PO FOR FEVER; Start 04/17/19 at 05:00 Albuterol (Proventil 0.083% (Neb)) 2.5 mg Q4H RESP THERAPY PRN NEB WHEEZING AND SOB; Start 04/17/19 at 05:00 Atorvastatin Calcium (Lipitor) 20 mg QHS PO Last administered on 04/25/19at 20:45; Admin Dose 20 MG; Start 04/17/19 at 21:00 Benzonatate (Tessalon) 100 mg Q6 PRN PO COUGH; Start 04/17/19 at 05:00 Bisacodyl (Dulcolax) 5 mg BID PO Last administered on 04/26/19 09:22; Admin Dose 5 MG; Start 04/17/19 at 09:00 Folic Acid (Folic Acid) 1 mg DAILY PO Last administered on 04/26/19 09:22; Admin Dose 1 MG; Start 04/17/19 at 09:00 Ondansetron HCl (Zofran Tab) 4 mg Q6H PRN PO NAUSEA AND/OR VOMITING; Start 04/17/19 at 05:00 Polyethylene Glycol (Miralax) 17 gm DAILY PO Last administered on 04/26/19 09:22; Admin Dose 17 GM; Start 04/17/19 at 09:00 Morphine Sulfate (morphine) 2 mg Q4H PRN IV SEVERE PAIN LEVEL 7-10 Last administered on 5/28/19at 04:35; Admin Dose 2 MG; Start 04/17/19 at 05:00 Diagnostic Test (Pha) (Accu-Chek) 1 ea 02 XX ; Start 04/18/19 at 02:00 Insulin Aspart (Novolog Insulin Pen) NOVOLOG *MILD* ALGORITHM WITH MEALS BEDTIME SC Last administered on 04/26/19 12:22; Admin Dose 1 UNIT; Start 04/17/19 at 08:00 Miscellaneous Information (Pending [facility] Order For Wound Care) This patient davis... PRN PRN XX WOUND CARE; Start 04/17/19 at 05:00 Miscellaneous Information 1 ea NOTE XX ; Start 04/17/19 at 05:30 Glucose (Glutose) 15 gm Q15M PRN PO DECREASED GLUCOSE; Start 04/17/19 at 05:30 Glucose (Glutose) 22.5 gm Q15M PRN PO DECREASED GLUCOSE; Start 04/17/19 at 05:30 Dextrose (D50w Syringe) 25 ml Q15M PRN IV DECREASED GLUCOSE; Start 04/17/19 at 05:30 Dextrose (D50w Syringe) 50 ml Q15M PRN IV DECREASED GLUCOSE; Start 04/17/19 at 05:30 Glucagon (Glucagen) 1 mg Q15M PRN IM DECREASED GLUCOSE; Start 04/17/19 at 05:30 Glucose (Glutose) 15 gm Q15M PRN BUCCAL DECREASED GLUCOSE; Start 04/17/19 at 05:30 Guaifenesin/ Codeine Phosphate (Robitussin Ac Liquid Cup) 5 ml TID PO Last administered on 04/26/19at 12:20; Admin Dose 5 ML; Start 04/17/19 at 09:00 Bisacodyl (Dulcolax Supp) 10 mg DAILY PRN [place] CONSTIPATION Last administered on 04/23/19at 16:16; Admin Dose 10 MG; Start 04/17/19 at 10:00 Lubiprostone (Amitiza) 24 mcg BID PO Last administered on 04/26/19 09:22; Admin Dose 24 MCG; Start 04/17/19 at 12:00 Heparin Sodium (Porcine) (Heparin (1000 Units/ml)) 4,000 unit AFTER DIALYSIS CATHETER Last administered on 04/25/19at 19:52; Admin Dose 4,000 UNIT; Start 04/17/19 at 12:00 Tramadol HCl (Ultram) 50 mg Q6H PRN PO MODERATE PAIN LEVEL 4-6 Last administered on 04/26/19 10:51; Admin Dose 50 MG; Start 04/18/19 at 11:00 Povidone Iodine (Povidone-Iodine) 1 applic DAILY TOP Last administered on 04/26/19 09:35; Admin Dose 1 APPLIC; Start 04/18/19 at 13:00 Pantoprazole (Protonix Tab) 40 mg BID@0600,1800 PO Last administered on 9at 05:49; Admin Dose 40 MG; Start 04/18/19 at 18:00 Albumin Human 100 ml @ 100 mls/hr WITH DIALYSIS PRN IV SBP <90 DURING DIALYSIS Last administered on 04/25/19 17:57; Admin Dose 100 MLS/HR; Start 04/18/19 at 15:00 Sodium Hypochlorite (Dakins Diluted ()) 1 applic TID TP Last administered on 04/26/19 13:00; Admin Dose 1 APPLIC; Start 04/18/19 at 21:00 Zolpidem Tartrate (Ambien) 5 mg HS PRN PO INSOMNIA Last administered on 04/25/19 21:23; Admin Dose 5 MG; Start 04/19/19 at 03:00 Metoclopramide HCl (Reglan) 5 mg Q6 IV Last administered on 04/26/19 12:03; Admin Dose 5 MG; Start 04/19/19 at 18:00 Gentamicin Sulfate (Gentamicin Iv Per Pharmacy) GENTAMICIN PER PHARMACY NOTE XX ; Start 04/21/19 at 13:30 Gentamicin Sulfate 50 ml @ 100 mls/hr AFTER DIALYSIS IVPB Last administered on 04/25/19 23:33; Admin Dose 100 MLS/HR; Start 04/22/19 at 08:00 Albuterol/ Ipratropium (Duoneb) 3 ml Q6H RESP THERAPY INH Last administered on 04/26/19 13:21; Admin Dose 3 ML; Start 04/22/19 at 20:00 Linezolid 300 ml @ 300 mls/hr Q12 IVPB Last administered on 04/26/19 10:42; Admin Dose 300 MLS/HR; Start 04/22/19 at 21:00 Metronidazole 100 ml @ 100 mls/hr Q8 IVPB Last administered on 04/26/19 15:43; Admin Dose 100 MLS/HR; Start 04/23/19 at 12:00 Zinc Sulfate (Zinc Sulfate) 220 mg DAILY PO Last administered on 04/26/19 09:22; Admin Dose 220 MG; Start 04/23/19 at 12:30 Multivit/Ca Carb/ B Cmplx/FA/Prenat (Suzie-Paula) 1 tab DAILY PO Last administered on 04/26/19 09:22; Admin Dose 1 TAB; Start 04/23/19 at 12:30 Ascorbic Acid (Vitamin C) 500 mg DAILY PO Last administered on 04/26/19 09:22; Admin Dose 500 MG; Start 04/23/19 at 12:30 Aspirin (Aspirin) 81 mg DAILY PO Last administered on 04/26/19 09:22; Admin Dose 81 MG; Start 04/24/19 at 09:00 Phenylephrine HCl 80 mg/Dextrose 250 ml @ 18.75 mls/ hr TITRATE IV Last administered on 04/26/19 15:05; Admin Dose 56.25 MLS/HR; Start 04/25/19 at 11:00 Heparin Sodium (Porcine) (Heparin (5000 Units/1ml)) 5,000 unit BID SC Last administered on 04/26/19 09:27; Admin Dose 5,000 UNIT; Start 04/25/19 at 21:00 Norepinephrine 32 mg/Dextrose 250 ml @ 0.47 mls/hr TITRATE IV Last administered on 04/26/19 12:17; Admin Dose 0.47 MLS/HR; Start 04/26/19 at 01:00 Midodrine (Proamatine) 5 mg BID@09,17 PO ; Start 04/26/19 at 17:00 Caspofungin 50 mg/ Sodium Chloride 250 ml @ 250 mls/hr Q24H IVPB ; Start 04/27/19 at 14:00 Meropenem/Sodium Chloride 50 ml @ 100 mls/hr Q12 IVPB Last administered on 04/26/19 12:59; Admin Dose 100 MLS/HR; Start 04/26/19 at 12:30 Lidocaine (Xylocaine 1% (Mpf)) 30 ml ONCE PRN INJ pain; Start 04/26/19 at 16:30 ISAIAS ZARATE DPM April 26, 2019 17:18
[2019-04-26] MEDS: MIDODRINE 5 MG TAB PO SCH (17:56)
[2019-04-26] MEDS: ATORVASTATIN 20 MG TAB PO SCH ×2 (21:00→21:14)
[2019-04-26] MEDS: BISACODYL 10 MG SUPP PR PRN (22:11)
[2019-04-26] MEDS: morphine 2 MG INJ IV PRN (22:34)
[2019-04-27] VITALS (63 sets, daily range): BP systolic 71–133; BP diastolic 28–90; PULSE 32–105; RESP 0–27
[2019-04-27] MEDS: PHENYLephrine 80 MG in DEXTROSE 5% 242 ML IV SCH ×4 (00:07→14:24)
[2019-04-27] MEDS: METOCLOPRAMIDE 10 MG INJ IV SCH ×3 (00:12→12:35)
[2019-04-27] MEDS: ALBUTEROL/IPRATROPIUM (NEB) 3 ML AMP INH SCH ×3 (02:07→14:44)
[2019-04-27] MEDS: ACCU-CHEK XX SCH (02:10)
[2019-04-27] MEDS: PANTOPRAZOLE (EC) 40 MG TAB PO SCH (05:29)
[2019-04-27] MEDS: metroNIDAZOLE 500 MG/NS (PMX) 100 ML IVPB SCH (05:30)
[2019-04-27] MEDS: traMADol 50 MG TAB PO PRN (06:14)
[2019-04-27] MEDS ORDERED: FENTAnyl 50 MCG/ML VIAL IV ONE (06:58)
[2019-04-27] MEDS ORDERED: FENTAnyl 50 MCG/ML VIAL IV PRN (07:00)
--- NOTE | 2019-04-27 07:02 | CONS ---
Assessment/Plan Assessment/Plan Assessment/Plan (Daily) Sepsis syndrome Bilateral leg gangrenous ulcers Mental status changes ICU delirium Hypertension End-stage renal disease on hemodialysis As far as pain control at this time we will change her current pain management to fentanyl 25 mcg IV every 3 hours which is a beginning dose for this late I suspect she will need higher doses unless she has a severe peripheral neuropathy. We will follow clinical course patient is a DO NOT RESUSCITATE we will schedule a conference with family members as patient continues to require high dose of pressors. Consultation Date/Type/Reason Admit Date/Time April 17, 2019 at 00:03 Date/Time of Note DATE: 04/27/19 TIME: 07:00 Hx of Present Illness Quick review of patient's medical records full note to follow. Admitted to the intensive care unit with sepsis syndrome secondary to lower extremity wounds reviewing medical records this patient is no historian shows that she has a CT scan which shows severe left hydronephrosis bilateral lower extremity gangrenous foot ulcers on hemodialysis, type 2 diabetes, peripheral vascular disease, history of atrial fibrillation. Patient has had periodic outbreaks of screaming although she quickly calms down with nurses can with her or family members visiting. Patient is currently on pressure support. She is a DO NOT RESUSCITATE. Cannot participate in review of symptoms Past Medical History Medical History: no pertinent history, coronary artery disease, diabetes, high cholesterol, hypertension, renal disease, other (Obesity) Home Meds Reported Medications Sucralfate* (Carafate*) 1 Gm Tab, 1 GM PO AC MEALS AND BEDTIME, TAB 03/28/19 Ondansetron Hcl* (Zofran*) 4 Mg Tab, 4 MG PO Q6H PRN for NAUSEA AND/OR VOMITING, TAB 03/28/19 Hydrocodone/Acetaminophen ([place] 5-325 Tablet) 1 Each Tablet, 1 EACH PO Q6H, TAB 03/28/19 Hydromorphone Hcl* (Dilaudid*) 4 Mg Tablet, 4 MG PO Q6H PRN for PAIN -09/07, TAB 03/28/19 Bisacodyl* (Bisacodyl*) 5 Mg Tablet.dr, 5 MG PO BID, TAB 03/28/19 Insulin Aspart* (Novolog Insulin Pen*) 100 Unit/Ml Soln, 0 SC .SLIDING SCALE AC, EA IF BS 150-199=1 UNIT, 200-249=2 UNITS, 250-299=3 UNITS, 300-349=4 UNITS, OVER 349=5 UNITS CALL MD IF BS<60 OR >350 03/28/19 Pantoprazole* (Pantoprazole*) 40 Mg Tablet.dr, 40 MG PO AC BREAKFAST, TAB 03/28/19 Linaclotide (LINZESS) 145 Mcg Capsule, 145 MCG PO DAILY, #30 CAP 03/28/19 Tramadol Hcl* (Tramadol* ER) 100 Mg Tab.er.24h, 100 MG PO TID, #30 TAB 03/28/19 Guaifenesin/Codeine Phosphate (Codeine-Guaifen 10-100 mg/5 ml) 120 Ml Liquid, 5 ML PO TID 03/28/19 Sevelamer Carbonate* (Renvela*) 800 Mg Tablet, 0.8 GM PO WITH MEALS, TAB 03/28/19 Gabapentin* (Gabapentin*) 300 Mg Capsule, 300 MG PO TID, #90 CAP 03/28/19 Ipratropium-Albuterol (Ipratropium-Albuterol) 0.5-3 Mg/3 Ml Ampul.neb, 3 ML INHALATION Q4H, #30 VIAL 03/28/19 Loperamide Hcl* (Loperamide Hcl*) 2 Mg Cap, 2 MG PO Q4H PRN for NEEDED, CAP 03/28/19 Glucagon,Human Recombinant (Glucagon Emergency Kit) 1 Mg Kit, 1 MG IJ NEEDED, KIT 03/28/19 Acetaminophen* (Acetaminophen*) 650 Mg Tablet, 650 MG PO Q4H PRN for FOR FEVER, #30 TAB 03/28/19 Acetaminophen* (Acetaminophen*) 500 MG Extra Strength Tablet, 500 MG PO Q4H PRN for MILD PAIN LEVEL 1-3, TAB 03/28/19 Albuterol Sulfate* (Albuterol Sulfate* Neb) 0.083%-3 Ml Neb, 2.5 MG NEB Q4H PRN for WHEEZING AND SOB, #30 VIAL 03/28/19 Temazepam* (Restoril*) 30 Mg Capsule, 30 MG PO NEEDED PRN for INSOMNIA, CAP 03/28/19 Polyethylene Glycol* (Miralax*) 17 Gm Powd.pack, 17 GM PO DAILY, #30 PACKET 03/28/19 Benzonatate* (Benzonatate*) 100 Mg Capsule, 100 MG PO NEEDED PRN for COUGH, CAP 03/28/19 Lubiprostone* (Amitiza*) 24 Mcg Capsule, 24 MCG PO BID, #60 CAP 03/28/19 Atorvastatin Calcium* (Atorvastatin Calcium*) 20 Mg Tablet, 20 MG PO QHS, #30 TAB 03/28/19 Arginine/Ascorbate Sod/Paula AC (Arginaid Powder) 1 Each Powd.pack, 1 EACH PO DAILY 03/28/19 Multivit/Ca Carb/B Cmplx/Fa* (Suzie-Paula*) 1 Tab Tab, 1 TAB PO DAILY, TAB 03/28/19 Losartan Potassium* (Losartan Potassium*) 25 Mg Tablet, 25 MG PO DAILY, TAB HOLD IF SBP<110 OR HR<60 03/28/19 Furosemide* (Furosemide*) 20 Mg Tablet, 20 MG PO DAILY, #60 TAB 03/28/19 Folic Acid* (Folic Acid*) 1 Mg Tablet, 1 MG PO DAILY, TAB 03/28/19 Famotidine* (Famotidine*) 20 Mg Tablet, 20 MG PO DAILY, #30 TAB 03/28/19 Apixaban* (Eliquis*) 2.5 Mg Tablet, 2.5 MG PO DAILY, TAB 03/28/19 Medications Current Medications Acetaminophen (Tylenol Tab) 650 mg Q4H PRN PO FOR FEVER; Start 04/17/19 at 05:00 Albuterol (Proventil 0.083% (Neb)) 2.5 mg Q4H RESP THERAPY PRN NEB WHEEZING AND SOB; Start 04/17/19 at 05:00 Atorvastatin Calcium (Lipitor) 20 mg QHS PO Last administered on 04/25/19at 20:45; Admin Dose 20 MG; Start 04/17/19 at 21:00 Benzonatate (Tessalon) 100 mg Q6 PRN PO COUGH; Start 04/17/19 at 05:00 Bisacodyl (Dulcolax) 5 mg BID PO Last administered on 04/26/19at 09:22; Admin Dose 5 MG; Start 04/17/19 at 09:00 Folic Acid (Folic Acid) 1 mg DAILY PO Last administered on 04/26/19at 09:22; Admin Dose 1 MG; Start 04/17/19 at 09:00 Ondansetron HCl (Zofran Tab) 4 mg Q6H PRN PO NAUSEA AND/OR VOMITING; Start 04/17/19 at 05:00 Polyethylene Glycol (Miralax) 17 gm DAILY PO Last administered on 04/26/19 09:22; Admin Dose 17 GM; Start 04/17/19 at 09:00 Morphine Sulfate (morphine) 2 mg Q4H PRN IV SEVERE PAIN LEVEL 7-10 Last administered on 04/26/19 22:34; Admin Dose 2 MG; Start 04/17/19 at 05:00 Diagnostic Test (Pha) (Accu-Chek) 1 ea 02 XX Last administered on 04/27/19 02:10; Admin Dose 1 EA; Start 04/18/19 at 02:00 Insulin Aspart (Novolog Insulin Pen) NOVOLOG *MILD* ALGORITHM WITH MEALS BEDTIME SC Last administered on 04/26/19 21:16; Admin Dose 1 UNIT; Start 04/17/19 at 08:00 [facility] This patient davis... PRN PRN XX WOUND CARE; Start 04/17/19 at 05:00 Miscellaneous Information 1 ea NOTE XX ; Start 04/17/19 at 05:30 Glucose (Glutose) 15 gm Q15M PRN PO DECREASED GLUCOSE; Start 04/17/19 at 05:30 Glucose (Glutose) 22.5 gm Q15M PRN PO DECREASED GLUCOSE; Start 04/17/19 at 05:30 Dextrose (D50w Syringe) 25 ml Q15M PRN IV DECREASED GLUCOSE; Start 04/17/19 at 05:30 Dextrose (D50w Syringe) 50 ml Q15M PRN IV DECREASED GLUCOSE; Start 04/17/19 at 05:30 Glucagon (Glucagen) 1 mg Q15M PRN IM DECREASED GLUCOSE; Start 04/17/19 at 05:30 Glucose (Glutose) 15 gm Q15M PRN BUCCAL DECREASED GLUCOSE; Start 04/17/19 at 05:30 Guaifenesin/ Codeine Phosphate (Robitussin Ac Liquid Cup) 5 ml TID PO Last administered on 04/26/19 21:22; Admin Dose 5 ML; Start 04/17/19 at 09:00 Bisacodyl (Dulcolax Supp) 10 mg DAILY PRN MS CONSTIPATION Last administered on 04/26/19 22:11; Admin Dose 10 MG; Start 04/17/19 at 10:00 Lubiprostone (Amitiza) 24 mcg BID PO Last administered on 04/26/19 09:22; Admin Dose 24 MCG; Start 04/17/19 at 12:00 Heparin Sodium (Porcine) (Heparin (1000 Units/ml)) 4,000 unit AFTER DIALYSIS CATHETER Last administered on 04/25/19 19:52; Admin Dose 4,000 UNIT; Start 04/17/19 at 12:00 Tramadol HCl (Ultram) 50 mg Q6H PRN PO MODERATE PAIN LEVEL 4-6 Last administered on 04/27/19 06:14; Admin Dose 50 MG; Start 04/18/19 at 11:00 Povidone Iodine (Povidone-Iodine) 1 applic DAILY TOP Last administered on 04/26/19 09:35; Admin Dose 1 APPLIC; Start 04/18/19 at 13:00 Pantoprazole (Protonix Tab) 40 mg BID@0600,1800 PO Last administered on 04/27/19 05:29; Admin Dose 40 MG; Start 04/18/19 at 18:00 Albumin Human 100 ml @ 100 mls/hr WITH DIALYSIS PRN IV SBP <90 DURING DIALYSIS Last administered on 04/25/19 17:57; Admin Dose 100 MLS/HR; Start 04/18/19 at 15:00 Sodium Hypochlorite (Dakins Diluted (40)) 1 applic TID TP Last administered on 04/26/19 13:00; Admin Dose 1 APPLIC; Start 04/18/19 at 21:00 Zolpidem Tartrate (Ambien) 5 mg HS PRN PO INSOMNIA Last administered on 04/25/19 21:23; Admin Dose 5 MG; Start 04/19/19 at 03:00 Metoclopramide HCl (Reglan) 5 mg Q6 IV Last administered on 04/27/19 05:30; Admin Dose 5 MG; Start 04/19/19 at 18:00 Gentamicin Sulfate (Gentamicin Iv Per Pharmacy) GENTAMICIN PER PHARMACY NOTE XX ; Start 04/21/19 at 13:30 Gentamicin Sulfate 50 ml @ 100 mls/hr AFTER DIALYSIS IVPB Last administered on 04/25/19 23:33; Admin Dose 100 MLS/HR; Start 04/22/19 at 08:00 Albuterol/ Ipratropium (Duoneb) 3 ml Q6H RESP THERAPY INH Last administered on 04/27/19 02:07; Admin Dose 3 ML; Start 04/22/19 at 20:00 Linezolid 300 ml @ 300 mls/hr Q12 IVPB Last administered on 04/26/19 21:13; Admin Dose 300 MLS/HR; Start 04/22/19 at 21:00 Metronidazole 100 ml @ 100 mls/hr Q8 IVPB Last administered on 04/27/19 05:30; Admin Dose 100 MLS/HR; Start 04/23/19 at 12:00 Zinc Sulfate (Zinc Sulfate) 220 mg DAILY PO Last administered on 04/26/19 09:22; Admin Dose 220 MG; Start 04/23/19 at 12:30 Multivit/Ca Carb/ B Cmplx/FA/Prenat (Suzie-Paula) 1 tab DAILY PO Last administered on 04/26/19 09:22; Admin Dose 1 TAB; Start 04/23/19 at 12:30 Ascorbic Acid (Vitamin C) 500 mg DAILY PO Last administered on 04/26/19 09:22; Admin Dose 500 MG; Start 04/23/19 at 12:30 Aspirin (Aspirin) 81 mg DAILY PO Last administered on 04/26/19 09:22; Admin Dose 81 MG; Start 04/24/19 at 09:00 Phenylephrine HCl 80 mg/Dextrose 250 ml @ 18.75 mls/ hr TITRATE IV Last administered on 04/27/19 04:48; Admin Dose 56.25 MLS/HR; Start 04/25/19 at 11:00 Heparin Sodium (Porcine) (Heparin (5000 Units/1ml)) 5,000 unit BID SC Last administered on 04/26/19 21:15; Admin Dose 5,000 UNIT; Start 04/25/19 at 21:00 Norepinephrine 32 mg/Dextrose 250 ml @ 0.47 mls/hr TITRATE IV Last administered on 04/26/19 12:17; Admin Dose 0.47 MLS/HR; Start 04/26/19 at 01:00 Midodrine (Proamatine) 5 mg BID@09,17 PO Last administered on 04/26/19 17:56; Admin Dose 5 MG; Start 04/26/19 at 17:00 Caspofungin 50 mg/ Sodium Chloride 250 ml @ 250 mls/hr Q24H IVPB ; Start 04/27/19 at 14:00 Meropenem/Sodium Chloride 50 ml @ 100 mls/hr Q12 IVPB Last administered on 04/26/19at 21:13; Admin Dose 100 MLS/HR; Start 04/26/19 at 12:30 Lidocaine (Xylocaine 1% (Mpf)) 30 ml ONCE PRN INJ pain; Start 04/26/19 at 16:30 Allergies: Coded Allergies: Citalopram Analogues (Unverified Allergy, Unknown, 03/28/19) amoxicillin (Unverified Allergy, Unknown, 03/28/19) Past Surgical History Past Surgical Hx: angioplasty, appendectomy, cholecystectomy, endoscopy Social History Alcohol Use: none Smoking Status: Never smoker Drug Use: none Exam/Review of Systems Exam Vitals Vital Signs Date Temp Pulse Resp B/P (MAP) Pulse Ox O2 O2 Flow FiO2 Time Delivery Rate 04/27/19 93 20 101/61 98 06:30 (74) 04/27/19 Room Air 06:00 04/27/19 97.6 04:00 04/27/19 21 02:07 04/26/19 23:00 Intake and Output 04/26/19 04/26/19 04/27/19 1515:00 23:00 07:00 IntakeIntake Total 1349.47 ml 1079.66 ml 236.24 ml OutputOutput Total 0 ml 0 ml BalanceBalance 1349.47 ml 1079.66 ml 236.24 ml Constitutional: distress, frail Psych: anxiety ENMT: nl external ears & nose, nl lips & teeth, nl nasal mucosa & septum Neck: supple, non-tender Respiratory: clear to auscultation, normal air movement Cardiovascular: regular rate and rhythm, nl pulses Neurological: [employer] II-XII intact, nl speech, nl strength, confused Results Result Diagram: 04/27/194 04/27/194 Results 24hrs Laboratory Tests Test 04/26/19 09:32 04/26/19 12:05 04/26/19 18:01 04/26/19 18:20 Bedside Glucose 147 177 170 Hemoglobin 10.9 L Hematocrit 33.9 L Test 04/26/19 21:10 04/27/19 02:04/27/19 04:24 Bedside Glucose 166 192 White Blood Count 13.9 #H Red Blood Count 3.53 L Hemoglobin 10.7 L Hematocrit 32.3 L Mean Corpuscular 91.5 Volume Mean Corpuscular 30.3 Hemoglobin Mean Corpuscular 33.1 Hemoglobin Concent Red Cell 17.9 H Distribution Width Platelet Count 144 Mean Platelet Volume 10.6 H Immature 0.600 H Granulocytes % Neutrophils % 87.1 H Lymphocytes % 3.8 L Monocytes % 6.6 Eosinophils % 1.2 Basophils % 0.7 Nucleated Red Blood 0.0 Cells % Immature 0.080 H Granulocytes # Neutrophils # 12.1 H Lymphocytes # 0.5 L Monocytes # 0.9 Eosinophils # 0.2 Basophils # 0.1 Nucleated Red Blood 0.0 Cells # Sodium Level 131 L Potassium Level 4.1 Chloride Level 95 L Carbon Dioxide Level 21 Anion Gap 15 H Blood Urea Nitrogen 28 H Creatinine 4.81 H Est Glomerular 9 L Filtrat Rate mL/min Glucose Level 196 Calcium Level 8.4 Phosphorus Level 3.4 Magnesium Level 2.3 Medications Medication Current Medications Acetaminophen (Tylenol Tab) 650 mg Q4H PRN PO FOR FEVER; Start 04/17/19 at 05:00 Albuterol (Proventil 0.083% (Neb)) 2.5 mg Q4H RESP THERAPY PRN NEB WHEEZING AND SOB; Start 04/17/19 at 05:00 Atorvastatin Calcium (Lipitor) 20 mg QHS PO Last administered on 04/25/19at 20:45; Admin Dose 20 MG; Start 04/17/19 at 21:00 Benzonatate (Tessalon) 100 mg Q6 PRN PO COUGH; Start 04/17/19 at 05:00 Bisacodyl (Dulcolax) 5 mg BID PO Last administered on 04/26/19 09:22; Admin Dose 5 MG; Start 04/17/19 at 09:00 Folic Acid (Folic Acid) 1 mg DAILY PO Last administered on 04/26/19 09:22; Admin Dose 1 MG; Start 04/17/19 at 09:00 Ondansetron HCl (Zofran Tab) 4 mg Q6H PRN PO NAUSEA AND/OR VOMITING; Start 04/17/19 at 05:00 Polyethylene Glycol (Miralax) 17 gm DAILY PO Last administered on 04/26/19 09:22; Admin Dose 17 GM; Start 04/17/19 at 09:00 Morphine Sulfate (morphine) 2 mg Q4H PRN IV SEVERE PAIN LEVEL 7-10 Last administered on 04/26/19 22:34; Admin Dose 2 MG; Start 04/17/19 at 05:00 Diagnostic Test (Pha) (Accu-Chek) 1 ea 02 XX Last administered on 04/27/19 02:10; Admin Dose 1 EA; Start 04/18/19 at 02:00 Insulin Aspart (Novolog Insulin Pen) NOVOLOG *MILD* ALGORITHM WITH MEALS BEDTIME SC Last administered on 04/26/19 21:16; Admin Dose 1 UNIT; Start 04/17/19 at 08:00 Miscellaneous Information (Pending [facility] Order For Wound Care) This patient davis... PRN PRN XX WOUND CARE; Start 04/17/19 at 05:00 Miscellaneous Information 1 ea NOTE XX ; Start 04/17/19 at 05:30 Glucose (Glutose) 15 gm Q15M PRN PO DECREASED GLUCOSE; Start 04/17/19 at 05:30 Glucose (Glutose) 22.5 gm Q15M PRN PO DECREASED GLUCOSE; Start 04/17/19 at 05:30 Dextrose (D50w Syringe) 25 ml Q15M PRN IV DECREASED GLUCOSE; Start 04/17/19 at 05:30 Dextrose (D50w Syringe) 50 ml Q15M PRN IV DECREASED GLUCOSE; Start 04/17/19 at 05:30 Glucagon (Glucagen) 1 mg Q15M PRN IM DECREASED GLUCOSE; Start 04/17/19 at 05:30 Glucose (Glutose) 15 gm Q15M PRN BUCCAL DECREASED GLUCOSE; Start 04/17/19 at 05:30 Guaifenesin/ Codeine Phosphate (Robitussin Ac Liquid Cup) 5 ml TID PO Last administered on 04/26/19 21:22; Admin Dose 5 ML; Start 04/17/19 at 09:00 Bisacodyl (Dulcolax Supp) 10 mg DAILY PRN MS CONSTIPATION Last administered on 04/26/19 22:11; Admin Dose 10 MG; Start 04/17/19 at 10:00 Lubiprostone (Amitiza) 24 mcg BID PO Last administered on 04/26/19 09:22; Admin Dose 24 MCG; Start 04/17/19 at 12:00 Heparin Sodium (Porcine) (Heparin (1000 Units/ml)) 4,000 unit AFTER DIALYSIS CATHETER Last administered on 04/25/19 19:52; Admin Dose 4,000 UNIT; Start 04/17/19 at 12:00 Tramadol HCl (Ultram) 50 mg Q6H PRN PO MODERATE PAIN LEVEL 4-6 Last administered on 04/27/19 06:14; Admin Dose 50 MG; Start 04/18/19 at 11:00 Povidone Iodine (Povidone-Iodine) 1 applic DAILY TOP Last administered on 04/26/19 09:35; Admin Dose 1 APPLIC; Start 04/18/19 at 13:00 Pantoprazole (Protonix Tab) 40 mg BID@0600,1800 PO Last administered on 04/27/19 05:29; Admin Dose 40 MG; Start 04/18/19 at 18:00 Albumin Human 100 ml @ 100 mls/hr WITH DIALYSIS PRN IV SBP <90 DURING DIALYSIS Last administered on 04/25/19 17:57; Admin Dose 100 MLS/HR; Start 04/18/19 at 15:00 Sodium Hypochlorite (Dakins Diluted (1/40)) 1 applic TID TP Last administered on 04/26/19 13:00; Admin Dose 1 APPLIC; Start 04/18/19 at 21:00 Zolpidem Tartrate (Ambien) 5 mg HS PRN PO INSOMNIA Last administered on 04/25/19 21:23; Admin Dose 5 MG; Start 04/19/19 at 03:00 Metoclopramide HCl (Reglan) 5 mg Q6 IV Last administered on 04/27/19 05:30; Admin Dose 5 MG; Start 04/19/19 at 18:00 Gentamicin Sulfate (Gentamicin Iv Per Pharmacy) GENTAMICIN PER PHARMACY NOTE XX ; Start 04/21/19 at 13:30 Gentamicin Sulfate 50 ml @ 100 mls/hr AFTER DIALYSIS IVPB Last administered on 04/25/19 23:33; Admin Dose 100 MLS/HR; Start 04/22/19 at 08:00 Albuterol/ Ipratropium (Duoneb) 3 ml Q6H RESP THERAPY INH Last administered on 04/27/19 02:07; Admin Dose 3 ML; Start 04/22/19 at 20:00 Linezolid 300 ml @ 300 mls/hr Q12 IVPB Last administered on 04/26/19 21:13; Admin Dose 300 MLS/HR; Start 04/22/19 at 21:00 Metronidazole 100 ml @ 100 mls/hr Q8 IVPB Last administered on 04/27/19 05:30; Admin Dose 100 MLS/HR; Start 04/23/19 at 12:00 Zinc Sulfate (Zinc Sulfate) 220 mg DAILY PO Last administered on 04/26/19 09:22; Admin Dose 220 MG; Start 04/23/19 at 12:30 Multivit/Ca Carb/ B Cmplx/FA/Prenat (Suzie-Paula) 1 tab DAILY PO Last admi nistered on 04/26/19 09:22; Admin Dose 1 TAB; Start 04/23/19 at 12:30 Ascorbic Acid (Vitamin C) 500 mg DAILY PO Last administered on 04/26/19 09:22; Admin Dose 500 MG; Start 04/23/19 at 12:30 Aspirin (Aspirin) 81 mg DAILY PO Last administered on 04/26/19 09:22; Admin Dose 81 MG; Start 04/24/19 at 09:00 Phenylephrine HCl 80 mg/Dextrose 250 ml @ 18.75 mls/ hr TITRATE IV Last administered on 04/27/19 04:48; Admin Dose 56.25 MLS/HR; Start 04/25/19 at 11:00 Heparin Sodium (Porcine) (Heparin (5000 Units/1ml)) 5,000 unit BID SC Last administered on 04/26/19 21:15; Admin Dose 5,000 UNIT; Start 04/25/19 at 21:00 Norepinephrine 32 mg/Dextrose 250 ml @ 0.47 mls/hr TITRATE IV Last administe red on 04/26/19 12:17; Admin Dose 0.47 MLS/HR; Start 04/26/19 at 01:00 Midodrine (Proamatine) 5 mg BID@09,17 PO Last administered on 04/26/19 17:56; Admin Dose 5 MG; Start 04/26/19 at 17:00 Caspofungin 50 mg/ Sodium Chloride 250 ml @ 250 mls/hr Q24H IVPB ; Start 04/27/19 at 14:00 Meropenem/Sodium Chloride 50 ml @ 100 mls/hr Q12 IVPB Last administered on 04/26/19at 21:13; Admin Dose 100 MLS/HR; Start 04/26/19 at 12:30 Lidocaine (Xylocaine 1% (Mpf)) 30 ml ONCE PRN INJ pain; Start 04/26/19 at 16:30 BERNARD GONZALES April 27, 2019 07:02
[2019-04-27] MEDS: INSULIN ASPART [NOVOLOG] 3 ML PEN SC SCH ×2 (08:47→12:47)
[2019-04-27] MEDS: HEPARIN 5,000 UNIT/1 ML VIAL SC SCH (08:48)
[2019-04-27] MEDS: MEROPENEM 500MG/50 ML (PMX) 50 ML IVPB SCH (08:52)
--- NOTE | 2019-04-27 10:12 | PN ---
Date/Time of Note Date/Time of Note DATE: 04/27/19 TIME: 10:12 Assessment/Plan VTE Prophylaxis Risk score (from Ns)>0 risk: 11 SCD applied (from Ns): No SCD contraindicated: low risk/ambulating Pharmacological prophylaxis: NA/contraindicated Pharm contraindication: low risk/ambulating Lines/Catheters IV Catheter Type (from Nrs): PERMACATH Urinary Cath still in place: No Assessment/Plan Assessment/Plan Assessment/Plan # Shock likely secondary to sepsis due to lower extremity wounds with multiple bugs E. coli Morganella VRE # Abdominal pain with some nausea. CT of the abdomen and pelvis showed severe left hydronephrosis, status post cholecystectomy. LFTs within normal limit except mildly elevated alkaline phosphatase. Lipase is 22. Likely secondary to constipation vs gastritis vs gastroparesis abdominal pain is still persistent. Versus choledocholithiasis s/p EGD with severe gastritis #. Severe left hydronephrosis secondary to UPJ junction, no urinary stone. probably chronic , no intervention per urology # Bilateral lower extremity ulcers with gangrene, followed by Dr. Schultz/ [facility] # End-stage renal disease, on hemodialysis. #. Hypotension, on dialysis. could be secondary to infected ulcers, hold bp meds # Diabetes mellitus type II. #. Hypertension. # Peripheral vascular disease. #. History of gastritis. #. History of gastroparesis # History of atrial fibrillation. # anasarca #. Afib, controlled now, # AMS due to encephalopathy vs pain meds Assessment/Plan - CT head neg - HD today -cw with gentamicin/Zyvox/meropenam - pain control per Dr Ibarra -Continue with phenylephrine, iv albumin and levophed -contact Isolation for VRE wounds -surgery on hold due to hypotension, unfortunately no CRRT here -strict BS control -c.e phos. binding agents -GI proph. Protonix -Give with tramadol for pain/morphine, hold off Dilaudid and gabapentin due to altered mental status -cw with aspirin/statin - dietary consult for calorie assessment> might need nutrition -GI/DVT prophylaxis Result Diagram: 04/27/19 0424 04/27/19 0424 Results 24hrs Laboratory Tests Test 04/26/19 12:05 04/26/19 18:01 04/26/19 18:20 04/26/19 21:10 Bedside Glucose 177 170 166 Hemoglobin 10.9 L Hematocrit 33.9 L Test 04/27/19 02:09 04/27/19 04:24 04/27/19 08:09 Bedside Glucose 192 196 White Blood Count 13.9 #H Red Blood Count 3.53 L Hemoglobin 10.7 L Hematocrit 32.3 L Mean Corpuscular 91.5 Volume Mean Corpuscular 30.3 Hemoglobin Mean Corpuscular 33.1 Hemoglobin Concent Red Cell 17.9 H Distribution Width Platelet Count 144 Mean Platelet Volume 10.6 H Immature 0.600 H Granulocytes % Neutrophils % 87.1 H Lymphocytes % 3.8 L Monocytes % 6.6 Eosinophils % 1.2 Basophils % 0.7 Nucleated Red Blood 0.0 Cells % Immature 0.080 H Granulocytes # Neutrophils # 12.1 H Lymphocytes # 0.5 L Monocytes # 0.9 Eosinophils # 0.2 Basophils # 0.1 Nucleated Red Blood 0.0 Cells # Sodium Level 131 L Potassium Level 4.1 Chloride Level 95 L Carbon Dioxide Level 21 Anion Gap 15 H Blood Urea Nitrogen 28 H Creatinine 4.81 H Est Glomerular 9 L Filtrat Rate mL/min Glucose Level 196 Calcium Level 8.4 Phosphorus Level 3.4 Magnesium Level 2.3 Subjective 24 Hr Interval Summary Free Text/Dictation Status post debridement yesterday. Currently on Geoffrey-Synephrine and Levophed drips Patient answering some questions SBP over 90 Exam/Review of Systems Exam Vitals Vital Signs Date Temp Pulse Resp B/P (MAP) Pulse Ox O2 O2 Flow FiO2 Time Delivery Rate 04/27/19 97 20 97 21 08:20 04/27/19 95/66 (76) 06:45 04/27/19 Room Air 06:00 04/27/19 97.6 04:00 04/26/19 23:00 Intake and Output 04/26/19 04/26/19 04/27/19 1414:59 22:59 06:59 IntakeIntake Total 1098.97 ml 1327.35 ml 472.48 ml OutputOutput Total 0 ml 0 ml BalanceBalance 1098.97 ml 1327.35 ml 472.48 ml Exam rght chest permcath Constitutional: Little lethargic, anasarca Psych: no complaints Head: normocephalic Eyes: nl conjunctiva Neck: supple Respiratory: diminished breath sounds Cardiovascular: regular rate and rhythm Extremities: other (surgical dressing on feet) Generalized swelling more on the arms Bilateral lower extremity wounds black eschar Results Results 24hrs Laboratory Tests Test 04/26/19 12:05 04/26/19 18:01 04/26/19 18:20 04/26/19 21:10 Bedside Glucose 177 170 166 Hemoglobin 10.9 L Hematocrit 33.9 L Test 04/27/19 02:09 04/27/19 04:24 04/27/19 08:09 Bedside Glucose 192 196 White Blood Count 13.9 #H Red Blood Count 3.53 L Hemoglobin 10.7 L Hematocrit 32.3 L Mean Corpuscular 91.5 Volume Mean Corpuscular 30.3 Hemoglobin Mean Corpuscular 33.1 Hemoglobin Concent Red Cell 17.9 H Distribution Width Platelet Count 144 Mean Platelet Volume 10.6 H Immature 0.600 H Granulocytes % Neutrophils % 87.1 H Lymphocytes % 3.8 L Monocytes % 6.6 Eosinophils % 1.2 Basophils % 0.7 Nucleated Red Blood 0.0 Cells % Immature 0.080 H Granulocytes # Neutrophils # 12.1 H Lymphocytes # 0.5 L Monocytes # 0.9 Eosinophils # 0.2 Basophils # 0.1 Nucleated Red Blood 0.0 Cells # Sodium Level 131 L Potassium Level 4.1 Chloride Level 95 L Carbon Dioxide Level 21 Anion Gap 15 H Blood Urea Nitrogen 28 H Creatinine 4.81 H Est Glomerular 9 L Filtrat Rate mL/min Glucose Level 196 Calcium Level 8.4 Phosphorus Level 3.4 Magnesium Level 2.3 Medications Medication Current Medications Acetaminophen (Tylenol Tab) 650 mg Q4H PRN PO FOR FEVER; Start 04/17/19 at 05:00 Albuterol (Proventil 0.083% (Neb)) 2.5 mg Q4H RESP THERAPY PRN NEB WHEEZING AND SOB; Start 04/17/19 at 05:00 Atorvastatin Calcium (Lipitor) 20 mg QHS PO Last administered on 04/25/19at 20:45; Admin Dose 20 MG; Start 04/17/19 at 21:00 Benzonatate (Tessalon) 100 mg Q6 PRN PO COUGH; Start 04/17/19 at 05:00 Bisacodyl (Dulcolax) 5 mg BID PO Last administered on 04/26/19at 09:22; Admin Dose 5 MG; Start 04/17/19 at 09:00 Folic Acid (Folic Acid) 1 mg DAILY PO Last administered on 04/26/19at 09:22; Admin Dose 1 MG; Start 04/17/19 at 09:00 Ondansetron HCl (Zofran Tab) 4 mg Q6H PRN PO NAUSEA AND/OR VOMITING; Start 04/17/19 at 05:00 Polyethylene Glycol (Miralax) 17 gm DAILY PO Last administered on 04/26/19at 09:22; Admin Dose 17 GM; Start 04/17/19 at 09:00 Diagnostic Test (Pha) (Accu-Chek) 1 ea 02 XX Last administered on 04/27/19at 02:10; Admin Dose 1 EA; Start 04/18/19 at 02:00 Insulin Aspart (Novolog Insulin Pen) NOVOLOG *MILD* ALGORITHM WITH MEALS BEDTIME SC Last administered on 04/27/19at 08:47; Admin Dose 2 UNIT; Start 04/17/19 at 08:00 Miscellaneous Information (Pending [facility] Order For Wound Care) This patient davis... PRN PRN XX WOUND CARE; Start 04/17/19 at 05:00 Miscellaneous Information 1 ea NOTE XX ; Start 04/17/19 at 05:30 Glucose (Glutose) 15 gm Q15M PRN PO DECREASED GLUCOSE; Start 04/17/19 at 05:30 Glucose (Glutose) 22.5 gm Q15M PRN PO DECREASED GLUCOSE; Start 04/17/19 at 05:3 0 Dextrose (D50w Syringe) 25 ml Q15M PRN IV DECREASED GLUCOSE; Start 04/17/19 at 05:30 Dextrose (D50w Syringe) 50 ml Q15M PRN IV DECREASED GLUCOSE; Start 04/17/19 at 05:30 Glucagon (Glucagen) 1 mg Q15M PRN IM DECREASED GLUCOSE; Start 04/17/19 at 05:30 Glucose (Glutose) 15 gm Q15M PRN BUCCAL DECREASED GLUCOSE; Start 04/17/19 at 05:30 Guaifenesin/ Codeine Phosphate (Robitussin Ac Liquid Cup) 5 ml TID PO Last administered on 04/26/19at 21:22; Admin Dose 5 ML; Start 04/17/19 at 09:00 Bisacodyl (Dulcolax Supp) 10 mg DAILY PRN [place] CONSTIPATION Last administered on 04/26/19 22:11; Admin Dose 10 MG; Start 04/17/19 at 10:00 Lubiprostone (Amitiza) 24 mcg BID PO Last administered on 04/26/19 09:22; Admin Dose 24 MCG; Start 04/17/19 at 12:00 Heparin Sodium (Porcine) (Heparin (1000 Units/ml)) 4,000 unit AFTER DIALYSIS CATHETER Last administered on 04/25/19 19:52; Admin Dose 4,000 UNIT; Start 04/17/19 at 12:00 Povidone Iodine (Povidone-Iodine) 1 applic DAILY TOP Last administered on 09:35; Admin Dose 1 APPLIC; Start 04/18/19 at 13:00 Pantoprazole (Protonix Tab) 40 mg BID@0600,1800 PO Last administered on 04/27/19 05:29; Admin Dose 40 MG; Start 04/18/19 at 18:00 Albumin Human 100 ml @ 100 mls/hr WITH DIALYSIS PRN IV SBP <90 DURING DIALYSIS Last administered on 04/25/19 17:57; Admin Dose 100 MLS/HR; Start 04/18/19 at 15:00 Sodium Hypochlorite (Dakins Diluted ()) 1 applic TID TP Last administered on 04/26/19 13:00; Admin Dose 1 APPLIC; Start 04/18/19 at 21:00 Zolpidem Tartrate (Ambien) 5 mg HS PRN PO INSOMNIA Last administered on 04/25/19 21:23; Admin Dose 5 MG; Start 04/19/19 at 03:00 Metoclopramide HCl (Reglan) 5 mg Q6 IV Last administered on 04/27/19 05:30; Admin Dose 5 MG; Start 04/19/19 at 18:00 Gentamicin Sulfate (Gentamicin Iv Per Pharmacy) GENTAMICIN PER PHARMACY NOTE XX ; Start 04/21/19 at 13:30 Gentamicin Sulfate 50 ml @ 100 mls/hr AFTER DIALYSIS IVPB Last administered on 04/25/19 23:33; Admin Dose 100 MLS/HR; Start 04/22/19 at 08:00 Albuterol/ Ipratropium (Duoneb) 3 ml Q6H RESP THERAPY INH Last administered on 04/27/19 08:20; Admin Dose 3 ML; Start 04/22/19 at 20:00 Linezolid 300 ml @ 300 mls/hr Q12 IVPB Last administered on 04/26/19 21:13; Admin Dose 300 MLS/HR; Start 04/22/19 at 21:00 Metronidazole 100 ml @ 100 mls/hr Q8 IVPB Last administered on 04/27/19 05:30; Admin Dose 100 MLS/HR; Start 04/23/19 at 12:00 Zinc Sulfate (Zinc Sulfate) 220 mg DAILY PO Last administered on 04/26/19 09:22; Admin Dose 220 MG; Start 04/23/19 at 12:30 Multivit/Ca Carb/ B Cmplx/FA/Prenat (Suzie-Paula) 1 tab DAILY PO Last administer ed on 04/26/19 09:22; Admin Dose 1 TAB; Start 04/23/19 at 12:30 Ascorbic Acid (Vitamin C) 500 mg DAILY PO Last administered on 04/26/19 09:22; Admin Dose 500 MG; Start 04/23/19 at 12:30 Aspirin (Aspirin) 81 mg DAILY PO Last administered on 04/26/19 09:22; Admin Dose 81 MG; Start 04/24/19 at 09:00 Phenylephrine HCl 80 mg/Dextrose 250 ml @ 18.75 mls/ hr TITRATE IV Last administered on 04/27/19 09:54; Admin Dose 56.25 MLS/HR; Start 04/25/19 at 11:00 Heparin Sodium (Porcine) (Heparin (5000 Units/1ml)) 5,000 unit BID SC Last administered on 04/27/19 08:48; Admin Dose 5,000 UNIT; Start 04/25/19 at 21:00 Norepinephrine 32 mg/Dextrose 250 ml @ 0.47 mls/hr TITRATE IV Last administered on 04/26/19 12:17; Admin Dose 0.47 MLS/HR; Start 04/26/19 at 01:00 Midodrine (Proamatine) 5 mg BID@09,17 PO Last administered on 04/26/19 17:56; Admin Dose 5 MG; Start 04/26/19 at 17:00 Caspofungin 50 mg/ Sodium Chloride 250 ml @ 250 mls/hr Q24H IVPB ; Start 5/30/19 at 14:00 Meropenem/Sodium Chloride 50 ml @ 100 mls/hr Q12 IVPB Last administered on 04/27/19at 08:52; Admin Dose 100 MLS/HR; Start 04/26/19 at 12:30 Lidocaine (Xylocaine 1% (Mpf)) 30 ml ONCE PRN INJ pain; Start 04/26/19 at 16:30 Fentanyl (Sublimaze) 25 mcg Q3H PRN IV SEVERE PAIN LEVEL 7-10; Start 04/27/19 at 07:00; Status JACOB HATCH MD April 27, 2019 10:12
[2019-04-27] MEDS: LINEZOLID 600 MG/300 ML (PMX) 300 ML IVPB SCH (10:14)
--- NOTE | 2019-04-27 10:59 | CONS ---
Assessment/Plan Assessment/Plan Hospital Course (Demo Recall) IMPRESSION: 1. Atrial fibrillation-mainly rate controlled s/p digoxin IVP and on amio 2. Hypotension-remains on pressors 3. Preoperative for lower extremity foot debridement.-Echo EF 60-65/no sig valve abnl/Neg trop x 2 4. End-stage renal disease, on hemodialysis. 5. Dyslipidemia. 6. Lower extremity nonhealing ulcerations. 7. Presumed peripheral arterial disease. 8. Coagulopathy-mild improvement 9. Anemia. 10. Thrombocytopenia-slowly improving. Recc: -IN ICU -serial ecg's -Continue statin -Contineu abx's and f/u cx data -Continue asa -local wond care s/p podiatric intervention yesterday -On increasing doses of pressors with levophed and loyda Consultation Date/Type/Reason Admit Date/Time April 17, 2019 at 00:03 Initial Consult Date 04/20/19 Type of Consult Cardiology Reason for Consultation hypotension Requesting Provider: ALONZO KNOWLES MD Date/Time of Note DATE: 04/27/19 TIME: 10:54 Exam/Review of Systems Vital Signs Vitals Vital Signs Date Temp Pulse Resp B/P (MAP) Pulse Ox O2 O2 Flow FiO2 Time Delivery Rate 04/27/19 97 20 97 21 08:20 04/27/19 95/66 (76) 06:45 04/27/19 Room Air 06:00 04/27/19 97.6 04:00 04/26/19 23:00 Intake and Output 04/26/19 04/26/19 04/27/19 1515:00 23:00 07:00 IntakeIntake Total 1349.47 ml 1079.66 ml 513.42 ml OutputOutput Total 0 ml 0 ml BalanceBalance 1349.47 ml 1079.66 ml 513.42 ml Exam Exam Review of Systems: CONSTITUTIONAL: No fevers, chills. PULMONARY: No sob CARDIOVASCULAR: No chest pain/palpitations GASTROINTESTINAL: No nausea/vomiting. GENITOURINARY: No hematuria/dysuria. MUSCULOSKELETAL: No myagias/arthalgias. PSYCHIATRIC: The patient denies depression. NEUROLOGIC: No weakness Constitutional: alert Psych: no complaints Head: normocephalic ENMT: mucosa pink and moist Neck: supple, jvd (9 cm water) Respiratory: diminished breath sounds Cardiovascular: regular rate and rhythm Gastrointestinal: soft, non-tender Musculoskeletal: muscle tone (normal) Extremities: edema (none) Neurological: other (No focal deficis) Labs Result Diagram: 04/27/194 04/27/19 0424 Results 24hrs Laboratory Tests Test 04/26/19 12:05 04/26/19 18:01 04/26/19 18:20 04/26/19 21:10 Bedside Glucose 177 170 166 Hemoglobin 10.9 L Hematocrit 33.9 L Test 04/27/19 02:09 04/27/19 04:24 04/27/19 08:09 Bedside Glucose 192 196 White Blood Count 13.9 #H Red Blood Count 3.53 L Hemoglobin 10.7 L Hematocrit 32.3 L Mean Corpuscular 91.5 Volume Mean Corpuscular 30.3 Hemoglobin Mean Corpuscular 33.1 Hemoglobin Concent Red Cell 17.9 H Distribution Width Platelet Count 144 Mean Platelet Volume 10.6 H Immature 0.600 H Granulocytes % Neutrophils % 87.1 H Lymphocytes % 3.8 L Monocytes % 6.6 Eosinophils % 1.2 Basophils % 0.7 Nucleated Red Blood 0.0 Cells % Immature 0.080 H Granulocytes # Neutrophils # 12.1 H Lymphocytes # 0.5 L Monocytes # 0.9 Eosinophils # 0.2 Basophils # 0.1 Nucleated Red Blood 0.0 Cells # Sodium Level 131 L Potassium Level 4.1 Chloride Level 95 L Carbon Dioxide Level 21 Anion Gap 15 H Blood Urea Nitrogen 28 H Creatinine 4.81 H Est Glomerular 9 L Filtrat Rate mL/min Glucose Level 196 Calcium Level 8.4 Phosphorus Level 3.4 Magnesium Level 2.3 Medications Medications Current Medications Acetaminophen (Tylenol Tab) 650 mg Q4H PRN PO FOR FEVER; Start 04/17/19 at 05:00 Albuterol (Proventil 0.083% (Neb)) 2.5 mg Q4H RESP THERAPY PRN NEB WHEEZING AND SOB; Start 04/17/19 at 05:00 Atorvastatin Calcium (Lipitor) 20 mg QHS PO Last administered on 04/25/19at 20:45; Admin Dose 20 MG; Start 04/17/19 at 21:00 Benzonatate (Tessalon) 100 mg Q6 PRN PO COUGH; Start 04/17/19 at 05:00 Bisacodyl (Dulcolax) 5 mg BID PO Last administered on 04/26/19 09:22; Admin Dose 5 MG; Start 04/17/19 at 09:00 Folic Acid (Folic Acid) 1 mg DAILY PO Last administered on 04/26/19 09:22; Admin Dose 1 MG; Start 04/17/19 at 09:00 Ondansetron HCl (Zofran Tab) 4 mg Q6H PRN PO NAUSEA AND/OR VOMITING; Start 04/17/19 at 05:00 Polyethylene Glycol (Miralax) 17 gm DAILY PO Last administered on 04/26/19 09:22; Admin Dose 17 GM; Start 04/17/19 at 09:00 Diagnostic Test (Pha) (Accu-Chek) 1 ea 02 XX Last administered on 04/27/19 02:10; Admin Dose 1 EA; Start 04/18/19 at 02:00 Insulin Aspart (Novolog Insulin Pen) NOVOLOG *MILD* ALGORITHM WITH MEALS BEDTIME SC Last administered on 04/27/19 08:47; Admin Dose 2 UNIT; Start 04/17/19 at 08:00 Miscellaneous Information (Pending [facility] Order For Wound Care) This patient davis... PRN PRN XX WOUND CARE; Start 04/17/19 at 05:00 Miscellaneous Information 1 ea NOTE XX ; Start 04/17/19 at 05:30 Glucose (Glutose) 15 gm Q15M PRN PO DECREASED GLUCOSE; Start 04/17/19 at 05:30 Glucose (Glutose) 22.5 gm Q15M PRN PO DECREASED GLUCOSE; Start 04/17/19 at 05:30 Dextrose (D50w Syringe) 25 ml Q15M PRN IV DECREASED GLUCOSE; Start 04/17/19 at 05:30 Dextrose (D50w Syringe) 50 ml Q15M PRN IV DECREASED GLUCOSE; Start 04/17/19 at 05:30 Glucagon (Glucagen) 1 mg Q15M PRN IM DECREASED GLUCOSE; Start 04/17/19 at 05:30 Glucose (Glutose) 15 gm Q15M PRN BUCCAL DECREASED GLUCOSE; Start 04/17/19 at 05:30 Guaifenesin/ Codeine Phosphate (Robitussin Ac Liquid Cup) 5 ml TID PO Last administered on 04/26/19 21:22; Admin Dose 5 ML; Start 04/17/19 at 09:00 Bisacodyl (Dulcolax Supp) 10 mg DAILY PRN [place] CONSTIPATION Last administered on 04/26/19 22:11; Admin Dose 10 MG; Start 04/17/19 at 10:00 Lubiprostone (Amitiza) 24 mcg BID PO Last administered on 04/26/19 09:22; Admin Dose 24 MCG; Start 04/17/19 at 12:00 Heparin Sodium (Porcine) (Heparin (1000 Units/ml)) 4,000 unit AFTER DIALYSIS CATHETER Last administered on 04/25/19 19:52; Admin Dose 4,000 UNIT; Start 04/17/19 at 12:00 Povidone Iodine (Povidone-Iodine) 1 applic DAILY TOP Last administered on 04/26/19 09:35; Admin Dose 1 APPLIC; Start 04/18/19 at 13:00 Pantoprazole (Protonix Tab) 40 mg BID@0600,1800 PO Last administered on 04/27/19 05:29; Admin Dose 40 MG; Start 04/18/19 at 18:00 Albumin Human 100 ml @ 100 mls/hr WITH DIALYSIS PRN IV SBP <90 DURING DIALYSIS Last administered on 04/25/19 17:57; Admin Dose 100 MLS/HR; Start 04/18/19 at 15:00 Zolpidem Tartrate (Ambien) 5 mg HS PRN PO INSOMNIA Last administered on 04/25/19 21:23; Admin Dose 5 MG; Start 04/19/19 at 03:00 Metoclopramide HCl (Reglan) 5 mg Q6 IV Last administered on 04/27/19 05:30; Admin Dose 5 MG; Start 04/19/19 at 18:00 Gentamicin Sulfate (Gentamicin Iv Per Pharmacy) GENTAMICIN PER PHARMACY NOTE XX ; Start 04/21/19 at 13:30 Gentamicin Sulfate 50 ml @ 100 mls/hr AFTER DIALYSIS IVPB Last administered on 04/25/19 23:33; Admin Dose 100 MLS/HR; Start 04/22/19 at 08:00 Albuterol/ Ipratropium (Duoneb) 3 ml Q6H RESP THERAPY INH Last administered on 04/27/19 08:20; Admin Dose 3 ML; Start 04/22/19 at 20:00 Linezolid 300 ml @ 300 mls/hr Q12 IVPB Last administered on 04/27/19 10:14; Admin Dose 300 MLS/HR; Start 04/22/19 at 21:00 Metronidazole 100 ml @ 100 mls/hr Q8 IVPB Last administered on 04/27/19 05:30; Admin Dose 100 MLS/HR; Start 04/23/19 at 12:00 Zinc Sulfate (Zinc Sulfate) 220 mg DAILY PO Last administered on 04/26/19 09:22; Admin Dose 220 MG; Start 04/23/19 at 12:30 Multivit/Ca Carb/ B Cmplx/FA/Prenat (Suzie-Paula) 1 tab DAILY PO Last administered on 04/26/19 09:22; Admin Dose 1 TAB; Start 04/23/19 at 12:30 Ascorbic Acid (Vitamin C) 500 mg DAILY PO Last administered on 04/26/19 09:22; Admin Dose 500 MG; Start 04/23/19 at 12:30 Aspirin (Aspirin) 81 mg DAILY PO Last administered on 04/26/19 09:22; Admin Dose 81 MG; Start 04/24/19 at 09:00 Phenylephrine HCl 80 mg/Dextrose 250 ml @ 18.75 mls/ hr TITRATE IV Last administered on 04/27/19 09:54; Admin Dose 56.25 MLS/HR; Start 04/25/19 at 11:00 Heparin Sodium (Porcine) (Heparin (5000 Units/1ml)) 5,000 unit BID SC Last administered on 04/27/19 08:48; Admin Dose 5,000 UNIT; Start 04/25/19 at 21:00 Norepinephrine 32 mg/Dextrose 250 ml @ 0.47 mls/hr TITRATE IV Last administered on 04/26/19 12:17; Admin Dose 0.47 MLS/HR; Start 04/26/19 at 01:00 Midodrine (Proamatine) 5 mg BID@09,17 PO Last administered on 04/26/19 17:56; Admin Dose 5 MG; Start 04/26/19 at 17:00 Caspofungin 50 mg/ Sodium Chloride 250 ml @ 250 mls/hr Q24H IVPB ; Start 04/27/19 at 14:00 Meropenem/Sodium Chloride 50 ml @ 100 mls/hr Q12 IVPB Last administered on 5/ 30/19at 08:52; Admin Dose 100 MLS/HR; Start 04/26/19 at 12:30 Lidocaine (Xylocaine 1% (Mpf)) 30 ml ONCE PRN INJ pain; Start 04/26/19 at 16:30 Fentanyl (Sublimaze) 25 mcg Q3H PRN IV SEVERE PAIN LEVEL 7-10; Start 04/27/19 at 07:00; Status UNV Sodium Hypochlorite (Dakins Diluted ()) 1 applic DAILY TP ; Start 04/28/19 at 09:00 LOUIS COLLIER April 27, 2019 10:59
--- NOTE | 2019-04-27 12:20 | CONS ---
Assessment/Plan Assessment/Plan Assessment/Plan (Daily) Consultation Assessment/Plan Assessment/Plan Assessment/Plan (Daily) Assessment/Plan Hospital Course (Demo Recall) 63 yo female presented with abdominal pain 1. Abdominal pain secondary to gastritis and mild gastroparesis -continues to have epigastric and lower abdominal pain, no diarrhea, bm 04/24 2. End-stage renal disease on dialysis. 3. Peripheral vascular disease. 4. atrial fibrillation controlled with digoxin and amiodarone 5. Status post cholecystectomy. 6. Diabetes. 7. Hypertension. 8. Depression. 9. Lower extremity wound. Gangrene of both the feet -debridement done 10. S/P EGD 11. Mild gastroparesis 12. Severe gastritis 13. Secondary esophageal varices with no bleeding noted 14. 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 Patient is off all pressor support. Surgery for the lower extremity has been deferred Consultation Date/Type/Reason Admit Date/Time April 17, 2019 at 00:03 Initial Consult Date 04/18/19 Requesting Provider: ALONZO KNOWLES MD Date/Time of Note DATE: 04/27/19 TIME: 12:17 24 HR Interval Summary Free Text/Dictation Patient complains of lower extremity pain No abdominal pain Bedside debridement done Exam/Review of Systems Exam Vitals Vital Signs Date Temp Pulse Resp B/P (MAP) Pulse Ox O2 O2 Flow FiO2 Time Delivery Rate 04/27/19 97 20 97 21 08:20 04/27/19 95/66 (76) 06:45 04/27/19 Room Air 06:00 04/27/19 97.6 04:00 04/26/19 23:00 Intake and Output 04/26/19 04/26/19 04/27/19 1515:00 23:00 07:00 IntakeIntake Total 1349.47 ml 1079.66 ml 513.42 ml OutputOutput Total 0 ml 0 ml BalanceBalance 1349.47 ml 1079.66 ml 513.42 ml Constitutional: oriented Respiratory: clear to auscultation, normal air movement Cardiovascular: regular rate and rhythm, nl pulses Gastrointestinal: soft, nl liver, spleen, non-tender Extremities: other (Both feet are covered with a dressing) Results Result Diagram: 04/27/1942304/27/194 Results 24hrs Laboratory Tests Test 04/26/19 18:01 04/26/19 18:20 04/26/19 21:10 04/27/19 02:09 Bedside Glucose 170 166 192 Hemoglobin 10.9 L Hematocrit 33.9 L Test 04/27/19 04:24 04/27/19 08:09 White Blood Count 13.9 #H Red Blood Count 3.53 L Hemoglobin 10.7 L Hematocrit 32.3 L Mean Corpuscular 91.5 Volume Mean Corpuscular 30.3 Hemoglobin Mean Corpuscular 33.1 Hemoglobin Concent Red Cell 17.9 H Distribution Width Platelet Count 144 Mean Platelet Volume 10.6 H Immature 0.600 H Granulocytes % Neutrophils % 87.1 H Lymphocytes % 3.8 L Monocytes % 6.6 Eosinophils % 1.2 Basophils % 0.7 Nucleated Red Blood 0.0 Cells % Immature 0.080 H Granulocytes # Neutrophils # 12.1 H Lymphocytes # 0.5 L Monocytes # 0.9 Eosinophils # 0.2 Basophils # 0.1 Nucleated Red Blood 0.0 Cells # Sodium Level 131 L Potassium Level 4.1 Chloride Level 95 L Carbon Dioxide Level 21 Anion Gap 15 H Blood Urea Nitrogen 28 H Creatinine 4.81 H Est Glomerular 9 L Filtrat Rate mL/min Glucose Level 196 Calcium Level 8.4 Phosphorus Level 3.4 Magnesium Level 2.3 Bedside Glucose 196 Medications Medication Current Medications Acetaminophen (Tylenol Tab) 650 mg Q4H PRN PO FOR FEVER; Start 04/17/19 at 05:00 Albuterol (Proventil 0.083% (Neb)) 2.5 mg Q4H RESP THERAPY PRN NEB WHEEZING AND SOB; Start 04/17/19 at 05:00 Atorvastatin Calcium (Lipitor) 20 mg QHS PO Last administered on 04/25/19at 20:45; Admin Dose 20 MG; Start 04/17/19 at 21:00 Benzonatate (Tessalon) 100 mg Q6 PRN PO COUGH; Start 04/17/19 at 05:00 Bisacodyl (Dulcolax) 5 mg BID PO Last administered on 04/26/19at 09:22; Admin Dose 5 MG; Start 04/17/19 at 09:00 Folic Acid (Folic Acid) 1 mg DAILY PO Last administered on 04/26/19at 09:22; Admin Dose 1 MG; Start 04/17/19 at 09:00 Ondansetron HCl (Zofran Tab) 4 mg Q6H PRN PO NAUSEA AND/OR VOMITING; Start 03/30 at 05:00 Polyethylene Glycol (Miralax) 17 gm DAILY PO Last administered on 04/26/19 09:22; Admin Dose 17 GM; Start 04/17/19 at 09:00 Diagnostic Test (Pha) (Accu-Chek) 1 ea 02 XX Last administered on 04/27/19at 02:10; Admin Dose 1 EA; Start 04/18/19 at 02:00 Insulin Aspart (Novolog Insulin Pen) NOVOLOG *MILD* ALGORITHM WITH MEALS BEDTIME SC Last administered on 04/27/19 08:47; Admin Dose 2 UNIT; Start 04/17/19 at 08:00 Miscellaneous Information ([facility]) This patient davis... PRN PRN XX WOUND CARE; Start 04/17/19 at 05:00 Miscellaneous Information 1 ea NOTE XX ; Start 04/17/19 at 05:30 Glucose (Glutose) 15 gm Q15M PRN PO DECREASED GLUCOSE; Start 04/17/19 at 05:30 Glucose (Glutose) 22.5 gm Q15M PRN PO DECREASED GLUCOSE; Start 04/17/19 at 05:30 Dextrose (D50w Syringe) 25 ml Q15M PRN IV DECREASED GLUCOSE; Start 04/17/19 at 05:30 Dextrose (D50w Syringe) 50 ml Q15M PRN IV DECREASED GLUCOSE; Start 04/17/19 at 05:30 Glucagon (Glucagen) 1 mg Q15M PRN IM DECREASED GLUCOSE; Start 04/17/19 at 05:30 Glucose (Glutose) 15 gm Q15M PRN BUCCAL DECREASED GLUCOSE; Start 04/17/19 at 05:30 Guaifenesin/ Codeine Phosphate (Robitussin Ac Liquid Cup) 5 ml TID PO Last administered on 04/26/19at 21:22; Admin Dose 5 ML; Start 04/17/19 at 09:00 Bisacodyl (Dulcolax Supp) 10 mg DAILY PRN DE CONSTIPATION Last administered on 04/26/19at 22:11; Admin Dose 10 MG; Start 04/17/19 at 10:00 Lubiprostone (Amitiza) 24 mcg BID PO Last administered on 04/26/19 09:22; Admin Dose 24 MCG; Start 04/17/19 at 12:00 Heparin Sodium (Porcine) (Heparin (1000 Units/ml)) 4,000 unit AFTER DIALYSIS CATHETER Last administered on 04/25/19 19:52; Admin Dose 4,000 UNIT; Start 04/17/19 at 12:00 Povidone Iodine (Povidone-Iodine) 1 applic DAILY TOP Last administered on 04/26/19 09:35; Admin Dose 1 APPLIC; Start 04/18/19 at 13:00 Pantoprazole (Protonix Tab) 40 mg BID@0600,1800 PO Last administered on 04/27/19 05:29; Admin Dose 40 MG; Start 04/18/19 at 18:00 Albumin Human 100 ml @ 100 mls/hr WITH DIALYSIS PRN IV SBP <90 DURING DIALYSIS Last administered on 04/25/19 17:57; Admin Dose 100 MLS/HR; Start 04/18/19 at 15:00 Zolpidem Tartrate (Ambien) 5 mg HS PRN PO INSOMNIA Last administered on 04/25/19 21:23; Admin Dose 5 MG; Start 04/19/19 at 03:00 Metoclopramide HCl (Reglan) 5 mg Q6 IV Last administered on 04/27/19 05:30; Admin Dose 5 MG; Start 04/19/19 at 18:00 Gentamicin Sulfate (Gentamicin Iv Per Pharmacy) GENTAMICIN PER PHARMACY NOTE XX ; Start 04/21/19 at 13:30 Gentamicin Sulfate 50 ml @ 100 mls/hr AFTER DIALYSIS IVPB Last administered on 04/25/19 23:33; Admin Dose 100 MLS/HR; Start 04/22/19 at 08:00 Albuterol/ Ipratropium (Duoneb) 3 ml Q6H RESP THERAPY INH Last administered on 04/27/19 08:20; Admin Dose 3 ML; Start 04/22/19 at 20:00 Linezolid 300 ml @ 300 mls/hr Q12 IVPB Last administered on 04/27/19 10:14; Admin Dose 300 MLS/HR; Start 04/22/19 at 21:00 Metronidazole 100 ml @ 100 mls/hr Q8 IVPB Last administered on 5/30/19at 05:30; Admin Dose 100 MLS/HR; Start 04/23/19 at 12:00 Zinc Sulfate (Zinc Sulfate) 220 mg DAILY PO Last administered on 04/26/19 09:22; Admin Dose 220 MG; Start 04/23/19 at 12:30 Multivit/Ca Carb/ B Cmplx/FA/Prenat (Suzie-Paula) 1 tab DAILY PO Last administered on 04/26/19 09:22; Admin Dose 1 TAB; Start 04/23/19 at 12:30 Ascorbic Acid (Vitamin C) 500 mg DAILY PO Last administered on 04/26/19 09:22; Admin Dose 500 MG; Start 04/23/19 at 12:30 Aspirin (Aspirin) 81 mg DAILY PO Last administered on 04/26/19 09:22; Admin Dose 81 MG; Start 04/24/19 at 09:00 Phenylephrine HCl 80 mg/Dextrose 250 ml @ 18.75 mls/ hr TITRATE IV Last administered on 04/27/19 09:54; Admin Dose 56.25 MLS/HR; Start 04/25/19 at 11: 00 Heparin Sodium (Porcine) (Heparin (5000 Units/1ml)) 5,000 unit BID SC Last administered on 04/27/19 08:48; Admin Dose 5,000 UNIT; Start 04/25/19 at 21:00 Norepinephrine 32 mg/Dextrose 250 ml @ 0.47 mls/hr TITRATE IV Last administered on 04/26/19 12:17; Admin Dose 0.47 MLS/HR; Start 04/26/19 at 01:00 Midodrine (Proamatine) 5 mg BID@09,17 PO Last administered on 04/26/19 17:56; Admin Dose 5 MG; Start 04/26/19 at 17:00 Caspofungin 50 mg/ Sodium Chloride 250 ml @ 250 mls/hr Q24H IVPB ; Start 04/27/19 at 14:00 Meropenem/Sodium Chloride 50 ml @ 100 mls/hr Q12 IVPB Last administered on 04/27/19 08:52; Admin Dose 100 MLS/HR; Start 04/26/19 at 12:30 Lidocaine (Xylocaine 1% (Mpf)) 30 ml ONCE PRN INJ pain; Start 04/26/19 at 16:30 Fentanyl (Sublimaze) 25 mcg Q3H PRN IV SEVERE PAIN LEVEL 7-10; Start 04/27/19 at 07:00; Status UNV Sodium Hypochlorite (Dakins Diluted ()) 1 applic DAILY TP ; Start 04/28/19 at 09:00 IVANA MULTANI MD April 27, 2019 12:20
[2019-04-27] MEDS: GUAIFENESIN/CODEINE 5ML CUP PO SCH ×2 (12:26→12:36)
[2019-04-27] MEDS: MIDODRINE 5 MG TAB PO SCH (12:27)
[2019-04-27] MEDS: BISACODYL (EC) 5 MG TAB PO SCH (12:28)
[2019-04-27] MEDS: ASPIRIN 81 MG TAB PO SCH (12:28)
[2019-04-27] MEDS: ASCORBIC ACID 500 MG TAB PO SCH (12:29)
[2019-04-27] MEDS: ZINC SULFATE 220 MG CAP PO SCH (12:29)
[2019-04-27] MEDS: MULTIVIT/CA CARB/B CMPLX/FA TAB PO SCH (12:29)
[2019-04-27] MEDS: POLYETHYLENE GLYCOL 17 GM PACKET PO SCH (12:29)
[2019-04-27] MEDS: FOLIC ACID 1 MG TAB PO SCH (12:29)
[2019-04-27] MEDS: LUBIPROSTONE 24 MCG CAP PO SCH (12:29)
--- NOTE | 2019-04-27 12:58 | CONS ---
Assessment/Plan Assessment/Plan Hospital Course (Demo Recall) Patient remains on Geoffrey-Synephrine and Levophed drips, lethargic per report had been refusing medications and wants to go home. Refused food as well WBC 13.9 H&H 10.7 and 32.3 platelets 144 neutrophils 87.1 Microbiology: Wound culture grew E. coli, MRSA, VRE, Morganella morganii Antimicrobials: Gentamicin, Zyvox, Flagyl meropenem Cancidas MRI of right ankle revealed suspicion for early osteomyelitis of the posterior calcaneus. MRI of left ankle revealed severe midfoot arthrosis with associated midfoot collapse with erosive changes at the base of the subluxed cuboid without increased signal to suggest acute osteomyelitis. Please see full report in the chart Indwelling: Right chest permacath, right femoral triple-lumen catheter. Allergy: Amoxicillin Physical examination: This is a wasted obese well-developed fragile elderly woman who is awake in no distress. Head atraumatic normocephalic. Neck is supple. Chest rise symmetrical breath sounds diminished bases. Heart: S1-S2. Abdomen soft bowel sounds present. Extremities with bilateral lower extremities gangrene Assessment: 1. Severe sepsis with shock 2. Bilateral lower extremities gangrene/OM 3. End-stage renal disease 4. Peripheral arterial disease, status post right posterior tibial artery angioplasty 03/01/19 5. Diabetes 6. Failure to thrive 7. Afib s/p RVR 8. Abdominal pain secondary to gastritis and gastroparesis 9. DNR Plan: The patient is doing poorly, continue antibiotics follow repeat cultures, dc Flagyl. Prognosis very poor Consultation Date/Type/Reason Admit Date/Time April 17, 2019 at 00:03 Initial Consult Date 04/17/19 Type of Consult id Requesting Provider: ALONZO KNOWLES MD Date/Time of Note DATE: 04/27/19 TIME: 12:57 Exam/Review of Systems Exam Vitals Vital Signs Date Temp Pulse Resp B/P (MAP) Pulse Ox O2 O2 Flow FiO2 Time Delivery Rate 04/27/19 92 12:00 04/27/19 20 97 21 08:20 04/27/19 95/66 (76) 06:45 04/27/19 Room Air 06:00 04/27/19 97.6 04:00 04/26/19 23:00 Intake and Output 504/26/19 04/27/19 1515:00 23:00 07:00 IntakeIntake Total 1349.47 ml 1079.66 ml 513.42 ml OutputOutput Total 0 ml 0 ml BalanceBalance 1349.47 ml 1079.66 ml 513.42 ml Results Result Diagram: 04/27/19 0424 04/27/19 0424 Results 24hrs Laboratory Tests Test 04/26/19 18:01 04/26/19 18:20 04/26/19 21:10 04/27/19 02:09 Bedside Glucose 170 166 192 Hemoglobin 10.9 L Hematocrit 33.9 L Test 04/27/19 04:24 04/27/19 08:09 04/27/19 12:41 White Blood Count 13.9 #H Red Blood Count 3.53 L Hemoglobin 10.7 L Hematocrit 32.3 L Mean Corpuscular 91.5 Volume Mean Corpuscular 30.3 Hemoglobin Mean Corpuscular 33.1 Hemoglobin Concent Red Cell 17.9 H Distribution Width Platelet Count 144 Mean Platelet Volume 10.6 H Immature 0.600 H Granulocytes % Neutrophils % 87.1 H Lymphocytes % 3.8 L Monocytes % 6.6 Eosinophils % 1.2 Basophils % 0.7 Nucleated Red Blood 0.0 Cells % Immature 0.080 H Granulocytes # Neutrophils # 12.1 H Lymphocytes # 0.5 L Monocytes # 0.9 Eosinophils # 0.2 Basophils # 0.1 Nucleated Red Blood 0.0 Cells # Sodium Level 131 L Potassium Level 4.1 Chloride Level 95 L Carbon Dioxide Level 21 Anion Gap 15 H Blood Urea Nitrogen 28 H Creatinine 4.81 H Est Glomerular 9 L Filtrat Rate mL/min Glucose Level 196 Calcium Level 8.4 Phosphorus Level 3.4 Magnesium Level 2.3 Bedside Glucose 196 222 H Medications Medication Current Medications Acetaminophen (Tylenol Tab) 650 mg Q4H PRN PO FOR FEVER; Start 04/17/19 at 05:00 Albuterol (Proventil 0.083% (Neb)) 2.5 mg Q4H RESP THERAPY PRN NEB WHEEZING AND SOB; Start 04/17/19 at 05:00 Atorvastatin Calcium (Lipitor) 20 mg QHS PO Last administered on 04/25/19at 20:45; Admin Dose 20 MG; Start 04/17/19 at 21:00 Benzonatate (Tessalon) 100 mg Q6 PRN PO COUGH; Start 04/17/19 at 05:00 Bisacodyl (Dulcolax) 5 mg BID PO Last administered on 04/27/19 12:28; Admin Dose 5 MG; Start 04/17/19 at 09:00 Folic Acid (Folic Acid) 1 mg DAILY PO Last administered on 04/27/19 12:29; Admin Dose 1 MG; Start 04/17/19 at 09:00 Ondansetron HCl (Zofran Tab) 4 mg Q6H PRN PO NAUSEA AND/OR VOMITING; Start 04/17/19 at 05:00 Polyethylene Glycol (Miralax) 17 gm DAILY PO Last administered on 04/27/19 12:29; Admin Dose 17 GM; Start 04/17/19 at 09:00 Diagnostic Test (Pha) (Accu-Chek) 1 ea 02 XX Last administered on 04/27/19 02:10; Admin Dose 1 EA; Start 04/18/19 at 02:00 Insulin Aspart (Novolog Insulin Pen) NOVOLOG *MILD* ALGORITHM WITH MEALS BEDTIME SC Last administered on 04/27/19 12:47; Admin Dose 3 UNIT; Start 04/17/19 at 08:00 Miscellaneous Information (Pending [facility] Order For Wound Care) This patient davis... PRN PRN XX WOUND CARE; Start 04/17/19 at 05:00 Miscellaneous Information 1 ea NOTE XX ; Start 04/17/19 at 05:30 Glucose (Glutose) 15 gm Q15M PRN PO DECREASED GLUCOSE; Start 04/17/19 at 05:30 Glucose (Glutose) 22.5 gm Q15M PRN PO DECREASED GLUCOSE; Start 04/17/19 at 05:30 Dextrose (D50w Syringe) 25 ml Q15M PRN IV DECREASED GLUCOSE; Start 04/17/19 at 05:30 Dextrose (D50w Syringe) 50 ml Q15M PRN IV DECREASED GLUCOSE; Start 04/17/19 at 05:30 Glucagon (Glucagen) 1 mg Q15M PRN IM DECREASED GLUCOSE; Start 04/17/19 at 05:30 Glucose (Glutose) 15 gm Q15M PRN BUCCAL DECREASED GLUCOSE; Start 04/17/19 at 05:30 Guaifenesin/ Codeine Phosphate (Robitussin Ac Liquid Cup) 5 ml TID PO Last administered on 04/27/19 12:26; Admin Dose 5 ML; Start 04/17/19 at 09:00 Bisacodyl (Dulcolax Supp) 10 mg DAILY PRN RI CONSTIPATION Last administered on 04/26/19 22:11; Admin Dose 10 MG; Start 04/17/19 at 10:00 Lubiprostone (Amitiza) 24 mcg BID PO Last administered on 04/27/19 12:29; Admin Dose 24 MCG; Start 04/17/19 at 12:00 Heparin Sodium (Porcine) (Heparin (1000 Units/ml)) 4,000 unit AFTER DIALYSIS CATHETER Last administered on 04/25/19 19:52; Admin Dose 4,000 UNIT; Start 04/17/19 at 12:00 Povidone Iodine (Povidone-Iodine) 1 applic DAILY TOP Last administered on 04/26/19 09:35; Admin Dose 1 APPLIC; Start 04/18/19 at 13:00 Pantoprazole (Protonix Tab) 40 mg BID@0600,1800 PO Last administered on 04/27/19 05:29; Admin Dose 40 MG; Start 04/18/19 at 18:00 Albumin Human 100 ml @ 100 mls/hr WITH DIALYSIS PRN IV SBP <90 DURING DIALYSIS Last administered on 04/25/19 17:57; Admin Dose 100 MLS/HR; Start 04/18/19 at 15:00 Zolpidem Tartrate (Ambien) 5 mg HS PRN PO INSOMNIA Last administered on 04/25/19 21:23; Admin Dose 5 MG; Start 04/19/19 at 03:00 Metoclopramide HCl (Reglan) 5 mg Q6 IV Last administered on 04/27/19 12:35; Admin Dose 5 MG; Start 04/19/19 at 18:00 Gentamicin Sulfate (Gentamicin Iv Per Pharmacy) GENTAMICIN PER PHARMACY NOTE XX ; Start 04/21/19 at 13:30 Gentamicin Sulfate 50 ml @ 100 mls/hr AFTER DIALYSIS IVPB Last administered on 04/25/19 23:33; Admin Dose 100 MLS/HR; Start 04/22/19 at 08:00 Albuterol/ Ipratropium (Duoneb) 3 ml Q6H RESP THERAPY INH Last administered on 04/27/19 08:20; Admin Dose 3 ML; Start 04/22/19 at 20:00 Linezolid 300 ml @ 300 mls/hr Q12 IVPB Last administered on 04/27/19 10:14; Admin Dose 300 MLS/HR; Start 04/22/19 at 21:00 Metronidazole 100 ml @ 100 mls/hr Q8 IVPB Last administered on 04/27/19 05:30; Admin Dose 100 MLS/HR; Start 04/23/19 at 12:00 Zinc Sulfate (Zinc Sulfate) 220 mg DAILY PO Last administered on 04/27/19 12:29; Admin Dose 220 MG; Start 04/23/19 at 12:30 Multivit/Ca Carb/ B Cmplx/FA/Prenat (Suzie-Paula) 1 tab DAILY PO Last administered on 04/27/19 12:29; Admin Dose 1 TAB; Start 04/23/19 at 12:30 Ascorbic Acid (Vitamin C) 500 mg DAILY PO Last administered on 04/27/19 12:29; Admin Dose 500 MG; Start 04/23/19 at 12:30 Aspirin (Aspirin) 81 mg DAILY PO Last administered on 04/27/19 12:28; Admin Dose 81 MG; Start 04/24/19 at 09:00 Phenylephrine HCl 80 mg/Dextrose 250 ml @ 18.75 mls/ hr TITRATE IV Last administered on 04/27/19 09:54; Admin Dose 56.25 MLS/HR; Start 04/25/19 at 11:00 Heparin Sodium (Porcine) (Heparin (5000 Units/1ml)) 5,000 unit BID SC Last administered on 04/27/19 08:48; Admin Dose 5,000 UNIT; Start 04/25/19 at 21:00 Norepinephrine 32 mg/Dextrose 250 ml @ 0.47 mls/hr TITRATE IV Last administered on 04/26/19 12:17; Admin Dose 0.47 MLS/HR; Start 04/26/19 at 01:00 Midodrine (Proamatine) 5 mg BID@09,17 PO Last administered on 04/27/19 12:27; Admin Dose 5 MG; Start 04/26/19 at 17:00 Caspofungin 50 mg/ Sodium Chloride 250 ml @ 250 mls/hr Q24H IVPB ; Start 04/27/19 at 14:00 Meropenem/Sodium Chloride 50 ml @ 100 mls/hr Q12 IVPB Last administered on 04/27/19at 08:52; Admin Dose 100 MLS/HR; Start 04/26/19 at 12:30 Lidocaine (Xylocaine 1% (Mpf)) 30 ml ONCE PRN INJ pain; Start 04/26/19 at 16:30 Fentanyl (Sublimaze) 25 mcg Q3H PRN IV SEVERE PAIN LEVEL 7-10; Start 04/27/19 at 07:00; Status UNV Sodium Hypochlorite (Dakins Diluted ()) 1 applic DAILY TP ; Start 04/28/19 at 09:00 JOHANA KULKARNI NP April 27, 2019 12:58
[2019-04-27] MEDS: POVIDONE IODINE 10% 28.4 GM OINT TOP SCH (13:50)
[2019-04-27] MEDS: BALSAM PERU/CASTOR OIL 60 GM TUBE TOP SCH (13:51)
[2019-04-27] MEDS ORDERED: CASPOFUNGIN 50 MG in SOD CHLORIDE 0.9% 250 ML IVPB SCH (14:00)
[2019-04-27] MEDS ORDERED: DAKINS 0.0125%(1/40) 473 ML SOLUTION TP SCH (14:00)
--- NOTE | 2019-05-11 18:31 | DES ---
DATE OF ADMISSION: 04/17/2019 DATE OF : 04/27/2019 HISTORY OF PRESENTING ILLNESS AND HOSPITAL COURSE: This was a 64-year-old female that was well known with a history of stage III renal disease on hemodialysis, diabetes, hypertension, hyperlipidemia, p eripheral vascular disease, chronic AFib, who was sent in from [facility] due to severe abdominal pain, had bilateral lower extremity wounds followed by Dr. Schultz as an outpatient. The patient was recently discharged from the hospital on 04/05. She was doing fine until last night she started hav ing lower abdominal pain, was a little nauseous, presented to the emergency department. The patient had a CT of the abdomen and pelvis that showed diffuse anasarca, small to moderate ascite s, severe left hydronephrosis secondary to UPJ obstruction, appendix not identified. The patient was admitted to telemetry floor. LFTs were mildly abnormal. The patient was started on stool softener, Dulcolax suppository; Amitiza; MiraLax. If patient did not improve, patient will need enema. The p atient was continued on Eliquis. Dr. Schultz's consultation was obtained; however, according to him, vascular surgery consultation was recommended; dry dressing, bilateral feet; Betadine; elevate heels off the bedding. ID was also consulted because the patient started becoming hypotensive. The patien t was started on broad-spectrum IV antibiotics for her bilateral lower extremity wounds. Second opin ion was obtained from Dr. Meier, from Dr. Saldivar for bilateral lower extremity wounds. The codie ent started becoming more hypotensive. The patient was transferred to ICU, started on pressors. It was very hard managing the patient's blood pressure along with hemodialysis. Family had decided the patient to be DNR/DNI which was patient's decision. Plan was to take patient to OR; however, patient was not medically stable to go to OR. The patient had excisional debridement which was done at the bedside. Dr. Ibarra was also consulted. The patient was started on fentanyl also. Multiple conve rsations were done with the family all the time. GI had been consulted and their recommendations wer e followed. Finally, patient's behavior started becoming more altered. CT of the head was done whic h was negative. The patient was also continued on antibiotics like gentamicin, Zyvox and meropenem d ue to multiple bugs growing from the legs. The patient finally had asystole; however, it was family' s decision not to resuscitate and the patient peacefully. TIME PRONOUNCED: 1531 FINAL DIAGNOSES: 1. Shock secondary to sepsis due to lower extremity wounds, multiple bacteria - Escherichia coli, mo rganella, vancomycin-resistant enterococcus. 2. Abdominal pain with nausea. CT of the abdomen and pelvis showed severe left hydronephrosis. 3. Severe left hydronephrosis. 4. Bilateral lower extremity ulcers with gangrene. 5. End-stage renal disease, on hemodialysis. 6. Diabetes. 7. Hypertension. 8. Peripheral vascular disease. 9. Gastritis. 10. History of gastroparesis. 11. History of chronic atrial fibrillation. 12. Altered mental status due to encephalopathy. The case was discussed with the family and the daughter at the bedside. Dictated By: JACOB LARA/ABHIJIT Conf#: [id number] DID#: [id number] CC: ALONZO KNOWLES MD;*EndCC*
== END 2019-04-27 15:42 | disposition expired | DRG 981 ==
LOC: E/R 21:31 → 6WM 04-17 00:03 → 2NE 04-18 17:05 → ICU 04-20 12:07 → TEL 04-22 00:16 → ICU 04-22 00:35
PROVIDERS: ADMIT Internal Medicine Nephrology; ATTEND Internal Medicine Nephrology
PROC: 5A1D70Z Performance of Urinary Filtration, Intermittent, Less than 6 Hours Per Day (ICD-10-PCS; 2019-04-18)
PROC: 0DB68ZX Excision of Stomach, Via Natural or Artificial Opening Endoscopic, Diagnostic (ICD-10-PCS; principal; 2019-04-20 12:30)
PROC: 0KBW0ZZ Excision of Left Foot Muscle, Open Approach (ICD-10-PCS; 2019-04-26)
PROC: 0KBV0ZZ Excision of Right Foot Muscle, Open Approach (ICD-10-PCS; 2019-04-26)
DX: K29.00 Acute gastritis without bleeding (principal); L89.153 Pressure ulcer of sacral region, stage 3; A41.9 Sepsis, unspecified organism; R65.21 Severe sepsis with septic shock; N18.6 End stage renal disease; I85.00 Esophageal varices without bleeding; N13.0 Hydronephrosis with ureteropelvic junction obstruction; E11.52 Type 2 diabetes mellitus with diabetic peripheral angiopathy with gangrene; G93.40 Encephalopathy, unspecified; I96 Gangrene, not elsewhere classified; I12.0 Hypertensive chronic kidney disease with stage 5 chronic kidney disease or end stage renal disease; R18.8 Other ascites; L97.419 Non-pressure chronic ulcer of right heel and midfoot with unspecified severity; L97.423 Non-pressure chronic ulcer of left heel and midfoot with necrosis of muscle; L97.923 Non-pressure chronic ulcer of unspecified part of left lower leg with necrosis of muscle; M86.9 Osteomyelitis, unspecified; E11.621 Type 2 diabetes mellitus with foot ulcer; L97.513 Non-pressure chronic ulcer of other part of right foot with necrosis of muscle; I95.3 Hypotension of hemodialysis; E11.22 Type 2 diabetes mellitus with diabetic chronic kidney disease; E11.40 Type 2 diabetes mellitus with diabetic neuropathy, unspecified; E11.21 Type 2 diabetes mellitus with diabetic nephropathy; E11.319 Type 2 diabetes mellitus with unspecified diabetic retinopathy without macular edema; E11.69 Type 2 diabetes mellitus with other specified complication; E11.43 Type 2 diabetes mellitus with diabetic autonomic (poly)neuropathy; K31.84 Gastroparesis; D63.1 Anemia in chronic kidney disease; E87.70 Fluid overload, unspecified; E78.5 Hyperlipidemia, unspecified; E66.9 Obesity, unspecified; F41.9 Anxiety disorder, unspecified; F32.9 Major depressive disorder, single episode, unspecified; I48.2 Chronic atrial fibrillation; I25.10 Atherosclerotic heart disease of native coronary artery without angina pectoris; J45.909 Unspecified asthma, uncomplicated; R62.7 Adult failure to thrive; B96.20 Unspecified Escherichia coli [E. coli] as the cause of diseases classified elsewhere; B95.62 Methicillin resistant Staphylococcus aureus infection as the cause of diseases classified elsewhere; B95.2 Enterococcus as the cause of diseases classified elsewhere; Z16.21 Resistance to vancomycin; Z66 Do not resuscitate; Z98.62 Peripheral vascular angioplasty status; Z99.2 Dependence on renal dialysis; Z68.35 Body mass index [BMI] 35.0-35.9, adult; Z79.01 Long term (current) use of anticoagulants; Z79.4 Long term (current) use of insulin; Z79.891 Long term (current) use of opiate analgesic
CPT/HCPCS: 36415; 36600; 70450; 71045; 73610; 73630; 73718; 73721; 74176; 74181; 80048; 80053; 80061; 80076; 80202; 82550; 82553; 82803; 82962; 83605; 83690; 83735; 84100; 84134; 84484; 85014; 85018; 85025; 85610; 85730; 87070; 87081; 88305; 88312; 90935; 93005; 93308; 93971; 94640; 94664; 96374; 96375; C1751; J0282; J1580; J1644; J1815; J2001; J2060; J2185; J2270; J2370; J2405; J2765; J3010; J3370; J7040; J7050; J7060; J7070; P9047